=== PATIENT | female | born 1965 | race Caucasian/White ===

== ENCOUNTER 2020-10-01 21:35 | Emergency (ER) | payer OTHER, MEDICAID, SELFPAY ==
[2020-10-01 21:39] VITALS: BP 178/71; PULSE 86; RESP 20; TEMP 38.3; O2SAT 95; BMI 96.0
[2020-10-01 21:59] VITALS: BP 161/63; PULSE 86; O2SAT 91
[2020-10-01 22:30] VITALS: BP 164/73; PULSE 95; O2SAT 92
[2020-10-01 22:53] VITALS: TEMP 38.4
[2020-10-01 23:00] VITALS: BP 163/76; PULSE 96; O2SAT 92
--- NOTE | 2020-10-01 23:00 | HMH.EDGENADL ---
ED Disposition Clinical Impression: Polyarthritis Sepsis Qualifiers: Sepsis type: sepsis due to unspecified organism Sepsis acute organ dysfunction status: without acute organ dysfunction Qualified Code(s): A41.9 - Sepsis, unspecified organism Pneumonia Qualifiers: Pneumonia type: due to unspecified organism Laterality: unspecified laterality Lung location: unspecified part of lung Qualified Code(s): J18.9 - Pneumonia, unspecified organism Anemia Qualifiers: Anemia type: unspecified type Qualified Code(s): D64.9 - Anemia, unspecified UTI (urinary tract infection) Qualifiers: Urinary tract infection type: site unspecified Hematuria presence: without hematuria Qualified Code(s): N39.0 - Urinary tract infection, site not specified Disposition: Xfer Short-Term Hosp Condition on Discharge: Serious - Critical Care Critical Care Time: No Attestation: On 10/01/20, the high probability of a clinically significant, sudden or life threatening deterioration of the following system(s) required my full and direct attention, intervention and personal management. The time I documented below is in addition to time spent performing reported procedures but includes the following listed in this critical care notation. Medical Decision Making - Magdi Inquiry Pt receiving controlled substance: No Vital Signs: 10/01/20 21:39 10/01/20 21:59 10/01/20 22:30 Temperature 100.9 F H Temperature Source Oral Pulse Rate 86 95 H Pulse Rate [Right Brachial] 86 Respiratory Rate 20 Blood Pressure 161/63 H 164/73 H Blood Pressure [Left Arm] 178/71 H Blood Pressure Mean Blood Pressure Mean [Left Arm] 106 Blood Pressure Source Automatic Cuff Automatic Cuff Blood Pressure Source [Left Arm] Automatic Cuff Blood Pressure Position 02 Sat by Pulse Oximetry 95 91 L 92 L Oxygen Delivery Method Room Air Room Air Room Air 10/01/20 22:53 10/01/20 23:00 10/01/20 23:30 Temperature 101.2 F H Temperature Source Oral Pulse Rate 96 H 100 H Pulse Rate [Right Brachial] Respiratory Rate Blood Pressure 163/76 H 160/61 H Blood Pressure [Left Arm] Blood Pressure Mean Blood Pressure Mean [Left Arm] Blood Pressure Source Automatic Cuff Blood Pressure Source [Left Arm] Blood Pressure Position 02 Sat by Pulse Oximetry 92 L 91 L Oxygen Delivery Method Room Air 10/02/20 00:37 10/02/20 01:00 10/02/20 01:15 Temperature 100.3 F H Temperature Source Oral Pulse Rate 98 H 98 H Pulse Rate [Right Brachial] Respiratory Rate Blood Pressure 170/79 H Blood Pressure [Left Arm] Blood Pressure Mean 109 Blood Pressure Mean [Left Arm] Blood Pressure Source Blood Pressure Source [Left Arm] Blood Pressure Position 02 Sat by Pulse Oximetry 93 L 90 L Oxygen Delivery Method 10/02/20 01:30 10/02/20 02:00 10/02/20 02:14 Temperature 99.8 F H Temperature Source Oral Pulse Rate 102 H 97 H Pulse Rate [Right Brachial] Respiratory Rate 18 Blood Pressure 166/75 H 154/71 H Blood Pressure [Left Arm] Blood Pressure Mean 107 Blood Pressure Mean [Left Arm] Blood Pressure Source Blood Pressure Source [Left Arm] Blood Pressure Position Supine 02 Sat by Pulse Oximetry 93 L 93 L Oxygen Delivery Method Room Air 10/02/20 02:30 10/02/20 02:57 10/02/20 03:00 Temperature 98.7 F Temperature Source Oral Pulse Rate 90 92 H Pulse Rate [Right Brachial] 88 Respiratory Rate 17 Blood Pressure 152/73 H 143/72 H Blood Pressure [Left Arm] 182/86 H Blood Pressure Mean 99 Blood Pressure Mean [Left Arm] 118 Blood Pressure Source Blood Pressure Source [Left Arm] Automatic Cuff Blood Pressure Position Supine Supine 02 Sat by Pulse Oximetry 94 L 93 L 95 Oxygen Delivery Method Room Air Room Air 10/02/20 03:05 Temperature 99.8 F H Temperature Source Oral Pulse Rate 90 Pulse Rate [Right Brachial] Respiratory Rate 18 Blood Pressure 153/73 H
[2020-10-01 23:02] LABS: Basophils % 0.3 % (0.1-2.0); Eosinophils # 0.1 K/mm3 (0.0-0.4); Eosinophils % 0.4 % (0.1-12.0); Lymphocytes # 1.1 K/mm3 (0.7-4.5); Lymphocytes % 6.8 % (10-50); Mean Corpuscular HGB Conc 29.5 g/dL (31.8-35.4); Mean Corpuscular Hemoglobin 24.1 pg (27.0-31.2); Mean Corpuscular Volume 81.6 fl (81-99); Mean Platelet Volume 7.6 fl (7.4-10.4); Monocytes # 0.7 K/mm3 (0.1-1.0); Monocytes % 4.4 % (1.7-9.3); Neutrophils # 14.3 K/mm3 (1.8-7.8); Neutrophils % 88.1 % (37.0-80.0); Platelet Count 422 K/mm3 (142-424); Red Blood Count 3.31 M/mm3 (4.20-5.40); Red Cell Distribution Width 14.1 % (11.5-17.5); White Blood Count 16.3 K/mm3 (4.8-10.8)
[2020-10-01 23:07] LABS: Alanine Aminotransferase 35 U/L (12-78); Albumin Level 3.8 g/dl (3.5-5.0); Albumin/Globulin Ratio 1.1 (1.1-1.8); Alkaline Phosphatase 186 U/L (38-126); Anion Gap 13.3 mEq/L (5-15); Aspartate Amino Transferase 43 U/L (14-36); Bilirubin,Total 0.8 mg/dl (0.2-1.3); Blood Urea Nitrogen 13 mg/dl (7-17); Calcium 8.7 mg/dl (8.4-10.2); Carbon Dioxide 26 mmol/L (22.0-30.0); Chloride 105 mmol/L (98-107); Creatinine Clearance Estimated 66 mL/min (50-200); Estimated Glomerular Filt Rate 65 ml/min (>60); GFR (African American) 79 ML/MIN (>60); Globulin 3.6 g/dL (1.3-3.2); Glucose 112 mg/dl (74-100); Potassium 3.3 mmoL/L (3.5-5.1); Sodium 141 mmol/L (136-145); Total Protein,Serum 7.4 g/dl (6.3-8.2); Uric Acid 5.8 mg/dl (2.5-6.2)
[2020-10-01 23:10] LABS: Hematocrit 27.1 % (37.0-47.0)
--- NOTE | 2020-10-01 23:10 | XR_ITS ---
PROCEDURE INFORMATION: Exam: XR Chest Exam date and time: 10/01/2020 11:10 PM Age: 55 years old Clinical indication: Fever TECHNIQUE: Imaging protocol: XR of the chest. Views: 1 view. COMPARISON: No relevant prior studies available. FINDINGS: Airway: Patent Lungs: Bilateral perihilar haziness and streaky-like opacities. Mild segmental bronchial wall thickening. Linear airspace consolidations in the right lung base. Subtle ground-glass opacities in the left lung base. Pleural spaces: Unremarkable. No pleural effusion. No pneumothorax. Heart/Mediastinum: Cardiomediastinal silhouette is magnified due to technique. The heart is mildly enlarged. Bones/joints: No acute skeletal abnormality or aggressive osseous lesion. IMPRESSION: Bilateral perihilar and basal acute airspace disease, concerning for infectious pneumonia in this patient presenting with fever.
--- NOTE | 2020-10-01 23:10 | PC.NURSE ---
Dr Ellis made aware of hemoglobin of 8.0, no new orders
[2020-10-01 23:12] LABS: MANUAL DIFFERENTIAL MANUAL DIFFERENTIAL (MANUAL DIFF)
[2020-10-01 23:22] LABS: Eosinophils % 1 % (0-3); Hypochromasia 3+; Lymphocytes % 3 % (10-50); Neutrophils % 92 % (42-76); Platelet Estimate Normal; Total Cells Counted 100
[2020-10-01 23:23] LABS: Microcytosis 1+; Rouleaux 3+
[2020-10-01 23:30] VITALS: BP 160/61; PULSE 100; O2SAT 91
[2020-10-01 23:37] LABS: Erythrocyte Sedimentation Rate > 140 mm/hr (0-30)
[2020-10-01 23:46] LABS: Appearance,Urine/Cath SL CLOUDY (Clear); Blood, Urine/Cath Negative (Negative); Color,Urine/Cath YELLOW (Yellow); Glucose,Urine/Cath (UA) Negative (Negative); Ketones,Urine/Cath 1+ (Negative); Leukocyte Esterase,Cath Negative (Negative); Microscopic,Cath URINE MICROSCOPIC (MICROSCOPIC); Nitrate,Cath POSITIVE (Negative); PH,Urine/Cath 5.5 (5.0-8.5); Protein,Urine/Cath 2+ (Negative); Specific Gravity, Urine/Cath >= 1.030 (1.005-1.030); Urobilinogen,Cath 0.2 EU/dl (0.2)
[2020-10-01 23:48] LABS: Coronavirus 19, PCR Not Detected (NotDetected); Influenza A, PCR Not Detected (NotDetected); Influenza B, PCR Not Detected (NotDetected)
[2020-10-01 23:49] LABS: Bilirubin,Cath 1+ (Negative)
[2020-10-01 23:50] LABS: Amorphous Sediment,Ur/Cath Trace /lpf; Bacteria,Urine/Cath 4+ /lpf
[2020-10-01 23:53] LABS: Lactic Acid 0.8 mmol/L (0.7-2.1)
[2020-10-02] VITALS (10 sets, daily range): BP systolic 143–182; BP diastolic 71–86; PULSE 88–102; RESP 17–18; TEMP 37.1–37.9; O2SAT 90–95; BMI 43.6
[2020-10-02 01:34] LABS: Lactate Dehydrogenase 258 U/L (313-618)
--- NOTE | 2020-10-02 02:09 | PC.NURSE ---
SPOKE TO CALL [facility] AT [facility] NO BEDS AT [facility] OR [facility]
--- NOTE | 2020-10-02 02:13 | PC.NURSE ---
SPOKE WITH BED PLACEMENT AT [facility] AT THIS TIME, STATES PT WILL BE PUT ON WAITING LIST AND HOSPITALIST WILL CALL BACK
--- NOTE | 2020-10-02 03:21 | PC.NURSE ---
patient up to floor via stretcher.
--- NOTE | 2020-10-02 04:59 | PC.NURSE ---
called and informed [facility] RN that they have a bed in the ED for patient. Patient has family that works at and even though they reported they were on divert when Dr. Ross spoke with them earlier they are able to take patient at this time. Dr. Ross notified and stated he would change disposition to transfer instead of admit obs.
--- NOTE | 2020-10-02 05:08 | PC.NURSE ---
Spoke with Dr. Nicholson, he is changing disposition to transfer to short term hospital. Spoke with Bev in admissions and she stated she could undo the admission and leave patient as an ED patient.
--- NOTE | 2020-10-02 05:39 | PC.NURSE ---
Report called to Sheri at [facility].
[2020-10-02 05:43] LABS: Basophils % 0.3 % (0.1-2.0); Eosinophils # 0.1 K/mm3 (0.0-0.4); Eosinophils % 0.4 % (0.1-12.0); Lymphocytes # 2.4 K/mm3 (0.7-4.5); Lymphocytes % 15.8 % (10-50); Mean Corpuscular HGB Conc 28.8 g/dL (31.8-35.4); Mean Corpuscular Hemoglobin 23.7 pg (27.0-31.2); Mean Corpuscular Volume 82.2 fl (81-99); Mean Platelet Volume 7.3 fl (7.4-10.4); Monocytes # 0.6 K/mm3 (0.1-1.0); Monocytes % 4.1 % (1.7-9.3); Neutrophils # 12.2 K/mm3 (1.8-7.8); Neutrophils % 79.4 % (37.0-80.0); Platelet Count 410 K/mm3 (142-424); Red Blood Count 3.17 M/mm3 (4.20-5.40); Red Cell Distribution Width 14.2 % (11.5-17.5); White Blood Count 15.3 K/mm3 (4.8-10.8)
[2020-10-02 05:45] LABS: Hematocrit 26.1 % (37.0-47.0); Hemoglobin 7.5 g/dL (12.2-16.2)
--- NOTE | 2020-10-02 05:46 | PC.NURSE ---
Critical lab value reported to MD Ross Hgb 7.5. Pt being transferred to . Transfer signed by pt and on chart. Awaiting for transfer per [facility].
[2020-10-04 05:38] LABS: Peripheral Smear Review Scanned Result
== END 2020-10-02 03:09 | disposition short-term general hospital (02) ==
LOC: ER 10-02 02:01 → 2ND 10-02 02:59
PROVIDERS: Emergency Provider Emergency Medicine; PCP Family Medicine; Visit Provider Internal Medicine Adolescent Medicine
DX: M06.4 Inflammatory polyarthropathy (principal); A41.9 Sepsis, unspecified organism; J18.9 Pneumonia, unspecified organism; D64.9 Anemia, unspecified; N39.0 Urinary tract infection, site not specified; K21.9 Gastro-esophageal reflux disease without esophagitis; E78.5 Hyperlipidemia, unspecified; I10 Essential (primary) hypertension; Z79.899 Other long term (current) drug therapy; Z88.0 Allergy status to penicillin; Z88.2 Allergy status to sulfonamides; Z88.5 Allergy status to narcotic agent; Z88.7 Allergy status to serum and vaccine
CPT/HCPCS: 36415; 71045; 80053; 81001; 83605; 83615; 84550; 85007; 85025; 85651; 86140; 87040; 87086; 87088; 87186; 96365; 96366; 96375; 99284; J3370; U0003

== ENCOUNTER 2021-02-15 14:00 | Outpatient (RCR) | payer OTHER, MEDICAID, SELFPAY | END 2021-02-15 14:05 | disposition home or self-care (01) | LOC: PT 14:00 | PROVIDERS: PCP Family Medicine | DX: M25.562 Pain in left knee (principal); M25.462 Effusion, left knee | CPT/HCPCS: 97010; 97014; 97110; 97112; 97113; 97116; 97140; 97163; 97164; G0283 ==

== ENCOUNTER 2021-05-14 10:00 | Outpatient (RCR) | payer MEDICAID, OTHER, SELFPAY | END 2021-05-14 10:05 | disposition home or self-care (01) | LOC: OT 10:00 | PROVIDERS: PCP Family Medicine | DX: M79.601 Pain in right arm (principal); M79.602 Pain in left arm; M79.642 Pain in left hand; M79.641 Pain in right hand | CPT/HCPCS: 97014; 97110; 97140; 97164; 97166; 97530; G0283 ==

== ENCOUNTER → 2021-05-28 11:09 | Outpatient (CLI) | payer MEDICAID, SELFPAY | DX: Z01.812 Encounter for preprocedural laboratory examination (principal); Z11.52 Encounter for screening for COVID-19 | CPT/HCPCS: C9803; U0003; U0005 ==

== ENCOUNTER 2021-06-06 11:00 | Outpatient (RCR) | payer MEDICAID, SELFPAY | END 2021-06-06 11:05 | disposition home or self-care (01) | LOC: PT 11:00 | PROVIDERS: Visit Provider Student in an Organized Health Care Education/Training Program | DX: M06.4 Inflammatory polyarthropathy (principal); M10.9 Gout, unspecified | CPT/HCPCS: 97010; 97014; 97110; 97112; 97163; 97164; G0283 ==

== ENCOUNTER → 2021-08-23 10:33 | Outpatient (CLI) | payer MEDICAID, SELFPAY | PROVIDERS: PCP Family Medicine; Visit Provider Internal Medicine Pulmonary Disease | DX: R06.02 Shortness of breath (principal) | CPT/HCPCS: 94762 ==

== ENCOUNTER → 2021-09-14 09:34 | Outpatient (CLI) | payer MEDICAID, SELFPAY ==
--- NOTE | 2021-09-14 10:53 | PC.NURSE ---
PFT and 6 minute walk completed on Pt. Pt tolerated well. Albuterol 0.083% given via HHN, per protocol, Pt tolerated tx well.
== END ==
PROVIDERS: PCP Family Medicine; Visit Provider Internal Medicine Pulmonary Disease
DX: R06.09 Other forms of dyspnea (principal)
CPT/HCPCS: 94060; 94618; 94726; 94729

== ENCOUNTER → 2021-10-26 20:06 | Outpatient (CLI) | payer MEDICAID, SELFPAY | PROVIDERS: PCP Family Medicine; Visit Provider Internal Medicine Pulmonary Disease | DX: G47.33 Obstructive sleep apnea (adult) (pediatric) (principal); G47.36 Sleep related hypoventilation in conditions classified elsewhere; G47.61 Periodic limb movement disorder; R06.83 Snoring | CPT/HCPCS: 95810 ==

== ENCOUNTER → 2021-12-21 14:49 | Outpatient (CLI) | payer MEDICAID, SELFPAY ==
[2021-12-21 14:12] LABS: Adenovirus,PCR Not Detected (NotDetected); Bordetella Pertussis Not Detected (NotDetected); Chlamydophila Pneumoniae, PCR Not Detected (NotDetected); Coronavirus 19, PCR Not Detected (NotDetected); Coronavirus 229E Not Detected (NotDetected); Coronavirus NL63 Not Detected (NotDetected); Coronavirus OC43 Not Detected (NotDetected); Coronovirus HKU1,PCR Not Detected (NotDetected); Human Metapneumovirus Not Detected (NotDetected); Influenza A, PCR Not Detected (NotDetected); Influenza AH1, 2009 Not Detected (NotDetected); Influenza AH1, PCR Not Detected (NotDetected); Influenza AH3,PCR Not Detected (NotDetected); Influenza B, PCR Not Detected (NotDetected); Mycoplasma Pneumoniae, PCR Not Detected (NotDetected); Parainfluenza 1, PCR Not Detected (NotDetected); Parainfluenza 2, PCR Not Detected (NotDetected); Parainfluenza 3, PCR Not Detected (NotDetected); Parainfluenza 4, PCR Not Detected (NotDetected); Respiratory Syncytial Virus Not Detected (NotDetected); Rhinovirus/Enterovirus Not Detected (NotDetected)
== END ==
PROVIDERS: PCP Family Medicine; Visit Provider Family Medicine
DX: Z20.822 Contact with and (suspected) exposure to COVID-19 (principal); R50.9 Fever, unspecified
CPT/HCPCS: 87581; 87632; 87798; C9803; U0003; U0005

== ENCOUNTER → 2022-01-21 07:54 | Outpatient (CLI) | payer MEDICAID, SELFPAY ==
--- NOTE | 2022-01-21 07:54 | MM_ITS ---
PROCEDURE INFORMATION: Exam: MG Bilateral Screening 3D Mammography Exam date and time: 01/21/2022 7:54 AM Age: 56 years old Clinical indication: Screening examination. No family history of breast cancer. TECHNIQUE: Imaging protocol: Bilateral Screening tomosynthesis and 2D mammography including computer-aided detection (CAD) when performed. COMPARISON: 1. MG DMDXUR DIG MAMM-DX UNILATERAL-RT 10/10/2010 1:46 PM 2. MG DMDXUAVR DIG MAMM-DX UNIL ADD VIEWS-RT 02/07/2010 1:47 PM 3. MG DMSB DIGITAL MAMM-SCREEN BILATERAL 01/17/2010 4:02 PM FINDINGS: MAMMOGRAPHY: Breast composition: The breasts are heterogeneously dense, which may obscure small masses. Mass: No suspicious mass. Architectural distortion: None. Calcifications: No suspicious calcifications. Asymmetric density: None. Skin thickening: None. Axillary adenopathy: None. IMPRESSION: No mammographic evidence of malignancy. Annual screening is recommended unless otherwise clinically indicated. ASSESSMENT: BI-RADS Category 1: Negative
== END ==
PROVIDERS: PCP Family Medicine; Visit Provider Family Medicine
DX: Z12.31 Encounter for screening mammogram for malignant neoplasm of breast (principal)
CPT/HCPCS: 77063; 77067

== ENCOUNTER → 2022-02-19 14:41 | Outpatient (CLI) | payer MEDICAID, SELFPAY ==
[2022-02-19 13:29] LABS: Basophils # 0.1 K/mm3 (0-0.2); Basophils % 1.8 % (0.1-2.0); Eosinophils # 0.3 K/mm3 (0.0-0.4); Eosinophils % 3.5 % (0.1-12.0); Hematocrit 39.2 % (37.0-47.0); Hemoglobin 12.2 g/dL (12.2-16.2); Lymphocytes # 2.9 K/mm3 (0.7-4.5); Lymphocytes % 38.3 % (10-50); Mean Corpuscular HGB Conc 31.1 g/dL (31.8-35.4); Mean Corpuscular Hemoglobin 29.1 pg (27.0-31.2); Mean Corpuscular Volume 93.4 fl (81-99); Mean Platelet Volume 9.5 fl (7.4-10.4); Monocytes # 0.2 K/mm3 (0.1-1.0); Monocytes % 2.6 % (1.7-9.3); Neutrophils # 4.1 K/mm3 (1.8-7.8); Neutrophils % 53.9 % (37.0-80.0); Platelet Count 333 K/mm3 (142-424); Red Blood Count 4.19 M/mm3 (4.20-5.40); Red Cell Distribution Width 14.7 % (11.5-17.5); White Blood Count 7.6 K/mm3 (4.8-10.8)
== END ==
PROVIDERS: PCP Family Medicine; Visit Provider Family Medicine
DX: Z87.39 Personal history of other diseases of the musculoskeletal system and connective tissue (principal)
CPT/HCPCS: 85025

== ENCOUNTER → 2022-02-26 15:11 | Outpatient (CLI) | payer MEDICAID, SELFPAY | PROVIDERS: PCP Family Medicine; Visit Provider Nurse Practitioner Family | DX: G47.33 Obstructive sleep apnea (adult) (pediatric) (principal); G47.34 Idiopathic sleep related nonobstructive alveolar hypoventilation; Z99.89 Dependence on other enabling machines and devices | CPT/HCPCS: 94762 ==

== ENCOUNTER → 2022-03-25 14:36 | Outpatient (CLI) | payer MEDICAID, SELFPAY | PROVIDERS: PCP Family Medicine; Visit Provider Nurse Practitioner Family | DX: G47.33 Obstructive sleep apnea (adult) (pediatric) (principal); G47.34 Idiopathic sleep related nonobstructive alveolar hypoventilation; Z99.89 Dependence on other enabling machines and devices | CPT/HCPCS: 94762 ==

== ENCOUNTER → 2022-03-28 14:49 | Outpatient (CLI) | payer MEDICAID, SELFPAY ==
--- NOTE | 2022-03-28 14:56 | CT_ITS ---
FINAL REPORT TECHNIQUE: Thin section axial images were obtained from skull base to vertex without contrast. Coronal reconstruction images were obtained from the axial data. Exam was performed using dose reduction technique. CLINICAL HISTORY: [place] palsy?, facial drooping, right eye pain & pain behind right ear, jaw and neck FINDINGS: There is no mass effect or midline shift. There is no hydrocephalus. There is no intracranial hemorrhage. The posterior fossa is without acute abnormality. The basilar cisterns are preserved. The soft tissues are without acute abnormality. No acute osseous abnormality is identified. IMPRESSION: No acute intracranial abnormality. Reviewed, Interpreted and Dictated by Hortencia Simon MD Transcribed by Kate Marshall Authenticated and [facility]
== END ==
PROVIDERS: PCP Family Medicine; Visit Provider Family Medicine
DX: R29.810 Facial weakness (principal)
CPT/HCPCS: 70450

== ENCOUNTER → 2022-05-03 13:46 | Outpatient (CLI) | payer MEDICAID, SELFPAY ==
[2022-05-08 16:13] LABS: IgG P18 Ab. Absent (.); IgG P23 Ab. Absent (.); IgG P28 Ab. Absent (.); IgG P30 Ab. Absent (.); IgG P39 Ab. Absent (.); IgG P41 Ab. Present (.); IgG P45 Ab. Absent (.); IgG P58 Ab. Present (.); IgG P66 Ab. Absent (.); IgG P93 Ab. Present (.); IgM P23 Ab. Absent (.); IgM P39 Ab. Absent (.); IgM P41 Ab. Absent (.); Lyme IgG WB Interp. Negative (.); Lyme IgM WB Interp. Negative (.)
== END ==
PROVIDERS: PCP Family Medicine; Visit Provider Nurse Practitioner Family
DX: G51.0 Bell's palsy (principal)
CPT/HCPCS: 36415; 86617

== ENCOUNTER → 2022-06-12 19:37 | Outpatient (CLI) | payer MEDICAID, SELFPAY | PROVIDERS: PCP Family Medicine; Visit Provider Nurse Practitioner Family | DX: G47.33 Obstructive sleep apnea (adult) (pediatric) (principal); G47.61 Periodic limb movement disorder | CPT/HCPCS: 95811 ==

== ENCOUNTER → 2022-06-14 13:56 | Outpatient (CLI) | payer MEDICAID, SELFPAY ==
[2022-06-14 15:46] LABS: Basophils # 0.1 K/mm3 (0-0.2); Basophils % 1.3 % (0.1-2.0); Eosinophils # 0.4 K/mm3 (0.0-0.4); Eosinophils % 4.8 % (0.1-12.0); Hematocrit 39.4 % (37.0-47.0); Hemoglobin 12.1 g/dL (12.2-16.2); Lymphocytes # 2.6 K/mm3 (0.7-4.5); Lymphocytes % 33.1 % (10-50); Mean Corpuscular HGB Conc 30.6 g/dL (31.8-35.4); Mean Corpuscular Hemoglobin 29.5 pg (27.0-31.2); Mean Corpuscular Volume 96.2 fl (81-99); Mean Platelet Volume 9.5 fl (7.4-10.4); Monocytes # 0.7 K/mm3 (0.1-1.0); Monocytes % 8.6 % (1.7-9.3); Neutrophils # 4.1 K/mm3 (1.8-7.8); Neutrophils % 52.1 % (37.0-80.0); Platelet Count 267 K/mm3 (142-424); Red Blood Count 4.09 M/mm3 (4.20-5.40); Red Cell Distribution Width 15.7 % (11.5-17.5); White Blood Count 7.8 K/mm3 (4.8-10.8)
[2022-06-14 15:58] LABS: Alanine Aminotransferase 37 U/L (12-78); Albumin Level 4.2 g/dl (3.5-5.0); Albumin/Globulin Ratio 1.6 (1.1-1.8); Alkaline Phosphatase 126 U/L (38-126); Aspartate Amino Transferase 63 U/L (14-36); Bilirubin,Total 0.5 mg/dl (0.2-1.3); Blood Urea Nitrogen 13 mg/dl (7-17); Calcium 8.9 mg/dl (8.4-10.2); Carbon Dioxide 22 mmol/L (22.0-30.0); Chloride 106 mmol/L (98-107); Chol/HDL Ratio 4.5 (1-3.5); Cholesterol 199 mg/dl (140-200); Estimated Glomerular Filt Rate 74 ml/min (>60); GFR (African American) 89 ML/MIN (>60); Globulin 2.6 g/dL (1.3-3.2); Glucose 98 mg/dl (74-100); HDL Cholesterol 44 mg/dl (40-60); Sodium 137 mmol/L (136-145); Total Protein,Serum 6.8 g/dl (6.3-8.2); Triglycerides 202 mg/dl (30-150); VLDL Cholesterol 40 mg/dL (0-40)
[2022-06-14 16:08] LABS: Direct LDL Cholesterol 123.13 mg/dL (100-129)
[2022-06-14 16:27] LABS: Thyroid Stimulating Hormone 3.38 uIU/mL (0.465-4.68)
== END ==
PROVIDERS: PCP Family Medicine; Visit Provider Family Medicine
DX: I10 Essential (primary) hypertension (principal)
CPT/HCPCS: 80053; 80061; 84443; 85025

== ENCOUNTER → 2022-06-17 11:00 | Outpatient (CLI) | payer MEDICAID, SELFPAY ==
[2022-06-17 12:38] LABS: Iron 106 ug/dL (37-170)
[2022-06-17 12:48] LABS: Total Iron Binding Capacity 275 ug/dL (265-497)
[2022-06-17 13:13] LABS: Ferritin 304 ng/ml (11.1-264)
[2022-06-17 13:30] LABS: Vitamin B12 629 pg/mL (239-931)
== END ==
PROVIDERS: PCP Family Medicine; Visit Provider Nurse Practitioner Family
DX: D64.9 Anemia, unspecified (principal); G47.61 Periodic limb movement disorder
CPT/HCPCS: 36415; 82607; 82728; 83540; 83550

== ENCOUNTER → 2022-07-24 23:15 | Outpatient (CLI) | payer MEDICAID, SELFPAY ==
[2022-07-24 19:18] LABS: Adenovirus,PCR Not Detected (NotDetected); Bordetella Pertussis Not Detected (NotDetected); Chlamydophila Pneumoniae, PCR Not Detected (NotDetected); Coronavirus 19, PCR Not Detected (NotDetected); Coronavirus 229E Not Detected (NotDetected); Coronavirus NL63 Not Detected (NotDetected); Coronavirus OC43 Not Detected (NotDetected); Coronovirus HKU1,PCR Not Detected (NotDetected); Human Metapneumovirus Not Detected (NotDetected); Influenza A, PCR Not Detected (NotDetected); Influenza AH1, 2009 Not Detected (NotDetected); Influenza AH1, PCR Not Detected (NotDetected); Influenza AH3,PCR Not Detected (NotDetected); Influenza B, PCR Not Detected (NotDetected); Mycoplasma Pneumoniae, PCR Not Detected (NotDetected); Parainfluenza 1, PCR Not Detected (NotDetected); Parainfluenza 2, PCR Not Detected (NotDetected); Parainfluenza 3, PCR Not Detected (NotDetected); Parainfluenza 4, PCR Not Detected (NotDetected); Respiratory Syncytial Virus Not Detected (NotDetected); Rhinovirus/Enterovirus Not Detected (NotDetected)
== END ==
PROVIDERS: PCP Nurse Practitioner Family; Visit Provider Nurse Practitioner Family
DX: J02.9 Acute pharyngitis, unspecified (principal)
CPT/HCPCS: 87581; 87632; 87635; 87798; C9803; U0003; U0005

== ENCOUNTER → 2022-09-09 14:54 | Outpatient (CLI) | payer MEDICAID, SELFPAY | PROVIDERS: PCP Family Medicine; Visit Provider Nurse Practitioner Family | DX: G47.33 Obstructive sleep apnea (adult) (pediatric) (principal) | CPT/HCPCS: 94762 ==

== ENCOUNTER → 2022-10-10 23:33 | Outpatient (CLI) | payer MEDICAID, SELFPAY ==
[2022-10-10 18:26] LABS: Adenovirus,PCR Not Detected (NotDetected); Coronavirus 229E Not Detected (NotDetected); Coronavirus NL63 Not Detected (NotDetected); Coronavirus OC43 Not Detected (NotDetected); Coronovirus HKU1,PCR Not Detected (NotDetected); Human Metapneumovirus Not Detected (NotDetected)
[2022-10-10 18:27] LABS: Bordetella Pertussis Not Detected (NotDetected); Chlamydophila Pneumoniae, PCR Not Detected (NotDetected); Influenza A, PCR Not Detected (NotDetected); Influenza AH1, 2009 Not Detected (NotDetected); Influenza AH1, PCR Not Detected (NotDetected); Influenza AH3,PCR Not Detected (NotDetected); Influenza B, PCR Not Detected (NotDetected); Mycoplasma Pneumoniae, PCR Not Detected (NotDetected); Parainfluenza 1, PCR Not Detected (NotDetected); Parainfluenza 2, PCR Not Detected (NotDetected); Parainfluenza 3, PCR Not Detected (NotDetected); Parainfluenza 4, PCR Not Detected (NotDetected); Respiratory Syncytial Virus Not Detected (NotDetected); Rhinovirus/Enterovirus Not Detected (NotDetected)
[2022-10-10 21:03] LABS: Coronavirus 19, PCR Detected (NotDetected)
== END ==
PROVIDERS: PCP Family Medicine; Visit Provider Family Medicine
DX: Z20.822 Contact with and (suspected) exposure to COVID-19 (principal); U07.1 COVID-19; J06.9 Acute upper respiratory infection, unspecified; R09.89 Other specified symptoms and signs involving the circulatory and respiratory systems
CPT/HCPCS: 87581; 87632; 87798

== ENCOUNTER → 2022-11-06 12:40 | Outpatient (CLI) | payer MEDICAID, SELFPAY ==
[2022-11-06 13:10] LABS: Basophils # 0.1 K/mm3 (0-0.2); Basophils % 1.2 % (0.1-2.0); Eosinophils # 0.3 K/mm3 (0.0-0.4); Eosinophils % 4.7 % (0.1-12.0); Hematocrit 36.9 % (37.0-47.0); Hemoglobin 11.6 g/dL (12.2-16.2); Lymphocytes % 32.8 % (10-50); Mean Corpuscular HGB Conc 31.6 g/dL (31.8-35.4); Mean Corpuscular Hemoglobin 29.7 pg (27.0-31.2); Mean Platelet Volume 8.5 fl (7.4-10.4); Monocytes # 0.2 K/mm3 (0.1-1.0); Neutrophils # 3.5 K/mm3 (1.8-7.8); Neutrophils % 57.4 % (37.0-80.0); Platelet Count 231 K/mm3 (142-424); Red Blood Count 3.92 M/mm3 (4.20-5.40); Red Cell Distribution Width 14.8 % (11.5-17.5); White Blood Count 6.1 K/mm3 (4.8-10.8)
[2022-11-10 17:30] LABS: D001-IgE D pteronyssinus <0.10 kU/L (Class 0); D002-IgE D farinae <0.10 kU/L (Class 0); E001-IgE Cat Dander <0.10 kU/L (Class 0); E005-IgE Dog Dander <0.10 kU/L (Class 0); E072-IgE Mouse Urine <0.10 kU/L (Class 0); G002-IgE Bermuda Grass <0.10 kU/L (Class 0); G006-IgE Timothy Grass <0.10 kU/L (Class 0); I006-IgE Cockroach, German <0.10 kU/L (Class 0); Immunoglobulin E, Total 24 IU/mL (6-495); M001-IgE Penicillium chrysogen <0.10 kU/L (Class 0); M002-IgE Cladosporium herbarum <0.10 kU/L (Class 0); M003-IgE Aspergillus fumigatus <0.10 kU/L (Class 0); M006-IgE Alternaria alternata <0.10 kU/L (Class 0); T001-IgE Maple/Box Elder <0.10 kU/L (Class 0); T003-IgE Common Silver Birch <0.10 kU/L (Class 0); T006-IgE Cedar, Mountain <0.10 kU/L (Class 0); T007-IgE Oak, White <0.10 kU/L (Class 0); T008-IgE Elm, American <0.10 kU/L (Class 0); T010-IgE Walnut <0.10 kU/L (Class 0); T011-IgE Maple Leaf Sycamore <0.10 kU/L (Class 0); T014-IgE Cottonwood <0.10 kU/L (Class 0); T015-IgE Ash, White <0.10 kU/L (Class 0); T022-IgE Pecan, Hickory <0.10 kU/L (Class 0); T070-IgE White Mulberry <0.10 kU/L (Class 0); W001-IgE Ragweed, Short <0.10 kU/L (Class 0); W011-IgE Thistle, Russian <0.10 kU/L (Class 0); W014-IgE Pigweed, Common <0.10 kU/L (Class 0); W018-IgE Sheep Sorrel <0.10 kU/L (Class 0)
== END ==
LOC: LAB 12:41
PROVIDERS: PCP Family Medicine; Visit Provider Internal Medicine Pulmonary Disease
DX: J45.909 Unspecified asthma, uncomplicated (principal); J30.9 Allergic rhinitis, unspecified
CPT/HCPCS: 36415; 82785; 85025; 86003

== ENCOUNTER → 2022-11-27 08:45 | Outpatient (CLI) | payer MEDICAID, SELFPAY ==
[2022-11-27 09:40] LABS: Basophils # 0.1 K/mm3 (0-0.2); Eosinophils # 0.3 K/mm3 (0.0-0.4); Hematocrit 41.4 % (37.0-47.0); Hemoglobin 12.6 g/dL (12.2-16.2); Lymphocytes # 2.5 K/mm3 (0.7-4.5); Lymphocytes % 29.2 % (10-50); Mean Corpuscular HGB Conc 30.4 g/dL (31.8-35.4); Mean Corpuscular Hemoglobin 28.7 pg (27.0-31.2); Mean Corpuscular Volume 94.5 fl (81-99); Mean Platelet Volume 9.1 fl (7.4-10.4); Monocytes # 0.4 K/mm3 (0.1-1.0); Monocytes % 4.1 % (1.7-9.3); Neutrophils # 5.3 K/mm3 (1.8-7.8); Neutrophils % 61.7 % (37.0-80.0); Platelet Count 241 K/mm3 (142-424); Red Blood Count 4.38 M/mm3 (4.20-5.40); Red Cell Distribution Width 15.1 % (11.5-17.5); White Blood Count 8.6 K/mm3 (4.8-10.8)
[2022-11-27 10:44] LABS: Alanine Aminotransferase 24 U/L (12-78); Albumin/Globulin Ratio 1.3 (1.1-1.8); Alkaline Phosphatase 135 U/L (38-126); Anion Gap 13.2 mEq/L (5-15); Aspartate Amino Transferase 45 U/L (14-36); Bilirubin,Total 0.5 mg/dl (0.2-1.3); Blood Urea Nitrogen 14 mg/dl (7-17); Calcium 9.1 mg/dl (8.4-10.2); Carbon Dioxide 25 mmol/L (22.0-30.0); Chloride 107 mmol/L (98-107); Cholesterol 196 mg/dl (140-200); Estimated Glomerular Filt Rate 65 ml/min (>60); GFR (African American) 78 ML/MIN (>60); Globulin 3.1 g/dL (1.3-3.2); Glucose 103 mg/dl (74-100); HDL Cholesterol 49 mg/dl (40-60); Potassium 4.2 mmoL/L (3.5-5.1); Sodium 141 mmol/L (136-145); Total Protein,Serum 7.1 g/dl (6.3-8.2); Triglycerides 136 mg/dl (30-150); VLDL Cholesterol 27 mg/dL (0-40)
[2022-11-27 10:55] LABS: Direct LDL Cholesterol 109.17 mg/dL (100-129)
[2022-11-27 11:15] LABS: Thyroid Stimulating Hormone 1.56 uIU/mL (0.465-4.68)
== END ==
PROVIDERS: PCP Family Medicine; Visit Provider Family Medicine
DX: I10 Essential (primary) hypertension (principal)
CPT/HCPCS: 36415; 80053; 80061; 84443; 85025

== ENCOUNTER → 2022-11-29 14:06 | Outpatient (CLI) | payer MEDICAID, SELFPAY | PROVIDERS: PCP Family Medicine; Visit Provider Nurse Practitioner Family | DX: G47.33 Obstructive sleep apnea (adult) (pediatric) (principal); Z99.89 Dependence on other enabling machines and devices; G47.34 Idiopathic sleep related nonobstructive alveolar hypoventilation | CPT/HCPCS: 94762 ==

== ENCOUNTER → 2023-01-03 08:26 | Outpatient (CLI) | payer MEDICAID, SELFPAY ==
[2023-01-03 09:07] LABS: Basophils # 0.1 K/mm3 (0-0.2); Eosinophils # 0.3 K/mm3 (0.0-0.4); Eosinophils % 3.7 % (0.1-12.0); Hematocrit 36.9 % (37.0-47.0); Hemoglobin 12.2 g/dL (12.2-16.2); Lymphocytes # 2.1 K/mm3 (0.7-4.5); Lymphocytes % 29.7 % (10-50); Mean Corpuscular Volume 93.9 fl (81-99); Mean Platelet Volume 8.8 fl (7.4-10.4); Monocytes # 0.6 K/mm3 (0.1-1.0); Monocytes % 8.4 % (1.7-9.3); Neutrophils # 4.1 K/mm3 (1.8-7.8); Neutrophils % 57.2 % (37.0-80.0); Platelet Count 194 K/mm3 (142-424); Red Blood Count 3.93 M/mm3 (4.20-5.40); Red Cell Distribution Width 14.6 % (11.5-17.5); White Blood Count 7.1 K/mm3 (4.8-10.8)
[2023-01-03 12:16] LABS: 25-OH Vitamin D, Total 24.1 ng/mL (30-100)
[2023-01-04 14:17] LABS: Deamidated Gliadin Abs, IgA 6 units (0-19); Deamidated Gliadin Abs, IgG 1 units (0-19); Tissue Transglutaminase IgA Ab <2 U/mL (0-3); Tissue Transglutaminase IgG Ab 2 U/mL (0-5)
[2023-01-06 16:56] LABS: Endomysial IgA Antibody Negative (Negative)
[2023-01-08 11:04] LABS: Reticulin IgA Antibody Negative titer (Neg:<1:2.5)
[2023-01-08 19:27] LABS: F004-IgE Wheat <0.10 kU/L (Class 0); F024-IgE Shrimp <0.10 kU/L (Class 0); F338-IgE Scallop <0.10 kU/L (Class 0); I001-IgE Honey Bee <0.10 kU/L (Class 0); I002-IgE Hornet, White Face <0.10 kU/L (Class 0); Immunoglobulin E, Total 25 IU/mL (6-495)
[2023-01-09 18:26] LABS: F026-IgE Pork <0.10 kU/L (Class 0); I005-IgE Hornet Yellow <0.10 kU/L (Class 0)
== END ==
LOC: LAB 08:27
PROVIDERS: PCP Family Medicine; Visit Provider Allergy & Immunology
DX: E55.9 Vitamin D deficiency, unspecified (principal); Z91.018 Allergy to other foods; L30.9 Dermatitis, unspecified; J45.50 Severe persistent asthma, uncomplicated; Z91.038 Other insect allergy status
CPT/HCPCS: 36415; 82306; 82785; 83516; 83520; 85025; 86003; 86255; 86256

== ENCOUNTER → 2023-01-28 10:45 | Outpatient (CLI) | payer MEDICAID, SELFPAY ==
--- NOTE | 2023-01-28 10:45 | MM_ITS ---
PROCEDURE INFORMATION: Exam: MG Bilateral Screening 3D Mammography Exam date and time: 01/28/2023 10:52 AM Age: 57 years old Clinical indication: Screening examination TECHNIQUE: Imaging protocol: Bilateral Screening tomosynthesis and 2D mammography including computer-aided detection (CAD) when performed. COMPARISON: 1. MG MM DIG SCREENING MAMM BI W/CAD 01/21/2022 7:54 AM 2. MG DMDXUR DIG MAMM-DX UNILATERAL-RT 10/10/2010 1:46 PM FINDINGS: MAMMOGRAPHY: Breast composition: There are scattered areas of fibroglandular density. Mass: None. Architectural distortion: None. Calcifications: No suspicious calcifications. Asymmetric density: None. Skin thickening: None. Axillary adenopathy: None. IMPRESSION: No mammographic evidence of malignancy. Annual screening is recommended unless otherwise clinically indicated. ASSESSMENT: BI-RADS Category 1: Negative
== END ==
PROVIDERS: PCP Family Medicine; Visit Provider Family Medicine
DX: Z12.31 Encounter for screening mammogram for malignant neoplasm of breast (principal)
CPT/HCPCS: 77063; 77067

== ENCOUNTER 2023-03-11 09:49 | Outpatient (CLI) | payer MEDICARE, MEDICAID, SELFPAY ==
[2023-03-11] MEDS: ALBUTEROL 0.083% 2.5 MG/3 ML NEB IH (10:54)
--- NOTE | 2023-03-11 10:54 | PC.NURSE ---
Pt completed PFT and 6 Minute Walk test without incident. Albuterol 0.083% given via HHN, per protocol, Pt tolerated tx well.
== END 2023-03-11 23:59 ==
LOC: RT 09:50
PROVIDERS: PCP Family Medicine; Visit Provider Internal Medicine Pulmonary Disease
DX: R06.09 Other forms of dyspnea (principal)
CPT/HCPCS: 94060; 94618; 94726; 94729

== ENCOUNTER 2023-04-03 22:35 | Outpatient (CLI) | payer MEDICARE, MEDICAID, SELFPAY ==
[2023-04-03 19:19] LABS: Coronavirus 19, PCR Not Detected (NotDetected); Influenza A, PCR Not Detected (NotDetected); Influenza B, PCR Not Detected (NotDetected)
== END 2023-04-03 23:59 ==
LOC: LAB.DROPOF 22:37
PROVIDERS: PCP Nurse Practitioner; Visit Provider Nurse Practitioner
DX: J06.9 Acute upper respiratory infection, unspecified (principal); R11.0 Nausea; R51.9 Headache, unspecified; R50.9 Fever, unspecified; R09.81 Nasal congestion
CPT/HCPCS: 87636

== ENCOUNTER 2023-07-14 13:58 | Outpatient (CLI) | payer MEDICARE, SELFPAY ==
[2023-07-14 21:50] LABS: Chloride 109 mmol/L (98-107)
[2023-07-14 21:51] LABS: Potassium 4.7 mmoL/L (3.5-5.1); Sodium 141 mmol/L (136-145)
[2023-07-14 21:53] LABS: Alanine Aminotransferase 28 U/L (12-78); Albumin Level 3.9 g/dl (3.5-5.0); Albumin/Globulin Ratio 1.3 (1.1-1.8); Alkaline Phosphatase 148 U/L (38-126); Anion Gap 12.7 mEq/L (5-15); Aspartate Amino Transferase 48 U/L (14-36); Bilirubin,Total 0.5 mg/dl (0.2-1.3); Blood Urea Nitrogen 15 mg/dl (7-17); Carbon Dioxide 24 mmol/L (22.0-30.0); Cholesterol 169 mg/dl (140-200); Estimated Glomerular Filt Rate 74 ml/min (>60); GFR (African American) 89 ML/MIN (>60); Globulin 2.9 g/dL (1.3-3.2); Total Protein,Serum 6.8 g/dl (6.3-8.2); Triglycerides 187 mg/dl (30-150); VLDL Cholesterol 37 mg/dL (0-40)
[2023-07-14 21:54] LABS: Calcium 9.7 mg/dl (8.4-10.2); Chol/HDL Ratio 2.8 (1-3.5); Glucose 117 mg/dl (74-100); HDL Cholesterol 61 mg/dl (40-60)
[2023-07-14 22:05] LABS: Direct LDL Cholesterol 78.97 mg/dL (100-129)
== END 2023-07-14 23:59 | disposition home or self-care (01) ==
LOC: LAB.DROPOF 07-15 13:59
PROVIDERS: PCP Family Medicine; Visit Provider Family Medicine
DX: E07.9 Disorder of thyroid, unspecified (principal); E66.01 Morbid (severe) obesity due to excess calories; E78.5 Hyperlipidemia, unspecified; Z68.42 Body mass index [BMI] 45.0-49.9, adult
CPT/HCPCS: 80053; 80061; 84443

== ENCOUNTER 2023-10-13 10:20 | Outpatient (CLI) | payer MEDICARE, SELFPAY ==
[2023-10-13 18:33] LABS: Basophils # 0.1 K/mm3 (0-0.2); Eosinophils # 0.3 K/mm3 (0.0-0.4); Hematocrit 39.1 % (37.0-47.0); Hemoglobin 12.1 g/dL (12.2-16.2); Lymphocytes # 2.4 K/mm3 (0.7-4.5); Lymphocytes % 24.9 % (10-50); Mean Corpuscular Hemoglobin 31.1 pg (27.0-31.2); Mean Corpuscular Volume 100.3 fl (81-99); Mean Platelet Volume 10.5 fl (7.4-10.4); Monocytes # 0.3 K/mm3 (0.1-1.0); Monocytes % 2.9 % (1.7-9.3); Neutrophils # 6.5 K/mm3 (1.8-7.8); Neutrophils % 68.1 % (37.0-80.0); Platelet Count 182 K/mm3 (142-424); Red Cell Distribution Width 15.4 % (11.5-17.5); White Blood Count 9.5 K/mm3 (4.8-10.8)
[2023-10-13 18:46] LABS: Alanine Aminotransferase 32 U/L (12-78); Albumin Level 3.5 g/dl (3.5-5.0); Albumin/Globulin Ratio 1.1 (1.1-1.8); Alkaline Phosphatase 216 U/L (38-126); Anion Gap 12.2 mEq/L (5-15); Aspartate Amino Transferase 69 U/L (14-36); Bilirubin,Total 0.7 mg/dl (0.2-1.3); Blood Urea Nitrogen 17 mg/dl (7-17); Calcium 8.8 mg/dl (8.4-10.2); Carbon Dioxide 22 mmol/L (22.0-30.0); Chloride 109 mmol/L (98-107); Chol/HDL Ratio 3.1 (1-3.5); Cholesterol 168 mg/dl (140-200); Estimated Glomerular Filt Rate 86 ml/min (>60); GFR (African American) 104 ML/MIN (>60); Globulin 3.1 g/dL (1.3-3.2); Glucose 243 mg/dl (74-100); HDL Cholesterol 54 mg/dl (40-60); Potassium 4.2 mmoL/L (3.5-5.1); Sodium 139 mmol/L (136-145); Total Protein,Serum 6.6 g/dl (6.3-8.2); Triglycerides 218 mg/dl (30-150); VLDL Cholesterol 44 mg/dL (0-40)
[2023-10-13 18:57] LABS: Direct LDL Cholesterol 77.11 mg/dL (100-129)
[2023-10-13 19:13] LABS: Thyroid Stimulating Hormone 2.26 uIU/mL (0.465-4.68)
[2023-10-13 19:38] LABS: Hemoglobin A1C 6.2 % (4.0-6.0)
== END 2023-10-13 23:59 | disposition home or self-care (01) ==
LOC: LAB.DROPOF 10-14 10:20
PROVIDERS: PCP Family Medicine; Visit Provider Family Medicine
DX: F32.A Depression, unspecified (principal); E11.9 Type 2 diabetes mellitus without complications; E78.5 Hyperlipidemia, unspecified; E07.9 Disorder of thyroid, unspecified
CPT/HCPCS: 80050; 80053; 80061; 83036; 84443; 85025

== ENCOUNTER 2023-10-16 16:40 | Outpatient (CLI) | payer MEDICARE, SELFPAY ==
[2023-10-22 06:15] LABS: Calprotectin, Fecal 123 ug/g (0-120)
== END 2023-10-16 23:59 | disposition home or self-care (01) ==
LOC: LAB.DROPOF 16:42
PROVIDERS: Nurse Practitioner; PCP Family Medicine
DX: R19.5 Other fecal abnormalities (principal)
CPT/HCPCS: 83993

== ENCOUNTER 2023-11-07 11:47 | Outpatient (CLI) | payer OTHER, SELFPAY ==
[2023-11-07 13:58] LABS: Ferritin 271 ng/ml (11.1-264)
== END 2023-11-07 23:59 | disposition home or self-care (01) ==
LOC: LAB 11:48
PROVIDERS: PCP Family Medicine; Visit Provider Specialist
DX: G25.81 Restless legs syndrome (principal); Z79.899 Other long term (current) drug therapy
CPT/HCPCS: 36415; 82728

== ENCOUNTER 2023-11-17 11:50 | Outpatient (CLI) | payer OTHER, SELFPAY ==
[2023-11-17 18:47] LABS: Coronavirus 19, PCR Not Detected (NotDetected); Influenza A, PCR Not Detected (NotDetected); Influenza B, PCR Not Detected (NotDetected)
== END 2023-11-17 23:59 | disposition home or self-care (01) ==
LOC: LAB.DROPOF 11-18 11:50
PROVIDERS: PCP Nurse Practitioner; Visit Provider Nurse Practitioner
DX: J06.9 Acute upper respiratory infection, unspecified (principal)
CPT/HCPCS: 87636

== ENCOUNTER 2024-02-02 13:40 | Outpatient (CLI) | payer MEDICARE, SELFPAY ==
--- NOTE | 2024-02-02 13:44 | MM_ITS ---
PROCEDURE INFORMATION: Exam: MG Bilateral Screening 3D Mammography Exam date and time: 02/02/2024 1:50 PM Age: 58 years old Clinical indication: Screening examination TECHNIQUE: Imaging protocol: Bilateral Screening tomosynthesis and 2D mammography including computer-aided detection (CAD) when performed. COMPARISON: 1. MG MM DIG SCREENING MAMM BI W/CAD 01/28/2023 10:52 AM 2. MG MM DIG SCREENING MAMM BI W/CAD 01/21/2022 7:54 AM FINDINGS: MAMMOGRAPHY: Breast composition: There are scattered areas of fibroglandular density. Mass: None. Architectural distortion: None. Calcifications: No suspicious calcifications. Asymmetric density: None. Skin thickening: None. Axillary adenopathy: None. IMPRESSION: No mammographic evidence of malignancy. Annual screening is recommended unless otherwise clinically indicated. ASSESSMENT: BI-RADS Category 1: Negative.
== END 2024-02-02 23:59 | disposition home or self-care (01) ==
LOC: RAD 13:41
PROVIDERS: PCP Family Medicine; Visit Provider Nurse Practitioner
DX: Z12.31 Encounter for screening mammogram for malignant neoplasm of breast (principal)
CPT/HCPCS: 77063; 77067

== ENCOUNTER 2024-02-12 16:16 | Outpatient (CLI) | payer MEDICARE, SELFPAY ==
[2024-02-12 18:04] LABS: Coronavirus 19, PCR Not Detected (NotDetected); Influenza A, PCR Not Detected (NotDetected); Influenza B, PCR Not Detected (NotDetected)
== END 2024-02-12 23:59 | disposition home or self-care (01) ==
LOC: LAB.DROPOF 02-13 13:38
PROVIDERS: PCP Nurse Practitioner; Visit Provider Nurse Practitioner
DX: J06.9 Acute upper respiratory infection, unspecified (principal)
CPT/HCPCS: 87636

== ENCOUNTER 2024-02-27 19:26 | Emergency (ER) | payer MEDICARE, SELFPAY ==
[2024-02-27 19:28] VITALS: BP 161/82; PULSE 74; RESP 16; TEMP 37.1; O2SAT 98; BMI 43.8
--- NOTE | 2024-02-27 19:31 | ED_ITS ---
Discharge Plan Disposition Patient Disposition: Home, Self-Care Prescriptions Prescriptions: New azithromycin 500 mg tablet See Rx Instructions .ROUTE .COMPLEX Qty: 9 0RF Rx Instructions: For 250 mg dose pack: take 500 mg today (day 1), then 250 mg for 4 days (days 2-5) No Action azelastine 137 mcg (0.1 %) spray,non-aerosol 2 spray intranasal HS 90 Days Qty: 30 2RF Rx Instructions: administer into each nostril ferrous sulfate 325 mg (65 mg iron) tablet,delayed release (DR/EC) See Rx Instructions .ROUTE .COMPLEX Qty: 90 2RF Dose Instruction: TAKE 1 TABLET BY MOUTH ONCE DAILY Rx Instructions: TAKE 1 TABLET BY MOUTH ONCE DAILY fluticasone furoate-vilanterol [Breo Ellipta] 200-25 mcg/dose blister with device 1 inh inhalation DAILY 90 Days Qty: 90 2RF folic acid 1 mg tablet 1 mg PO DAILY Qty: 90 3RF meclizine 25 mg tablet 25 mg PO TID PRN (Reason: dizziness) Qty: 30 1RF metoprolol tartrate 50 mg tablet 50 mg PO DAILY Qty: 180 3RF montelukast 10 mg tablet See Rx Instructions .ROUTE .COMPLEX Qty: 90 2RF Dose Instruction: TAKE 1 TABLET BY MOUTH EVERY EVENING FOR ALLERGIES Rx Instructions: TAKE 1 TABLET BY MOUTH EVERY EVENING FOR ALLERGIES pantoprazole 40 mg tablet,delayed release (DR/EC) 40 mg PO DAILY Qty: 90 3RF simvastatin 20 mg tablet 20 mg PO QPM Qty: 90 3RF valsartan 320 mg tablet 320 mg PO DAILY Qty: 90 3RF prednisone 20 mg tablet 20 mg PO .COMPLEX Qty: 15 0RF Rx Instructions: 20 mg orally BID x 5 days then daily x 5 days dextromethorphan-guaifenesin 60-1,200 mg tablet extended release 12 hr 1 tab PO Q12H Qty: 60 0RF levofloxacin 500 mg tablet 500 mg PO Q24H Qty: 10 0RF albuterol sulfate 90 mcg/actuation HFA aerosol inhaler 2 inh IH Q6H PRN (Reason: shortness of breath or wheezing) 90 Days Qty: 8.5 12RF cefdinir 300 mg capsule 300 mg PO BID Qty: 20 0RF methotrexate sodium 2.5 mg tablet 15 mg PO WEEKLY metoclopramide HCl 5 mg tablet See Rx Instructions .ROUTE .COMPLEX Qty: 90 2RF Dose Instruction: TAKE 1 TABLET BY MOUTH ONCE DAILY FOR GERD Rx Instructions: TAKE 1 TABLET BY MOUTH ONCE DAILY FOR GERD trazodone 50 mg tablet 50 mg PO HS PRN (Reason: sleep) Qty: 30 2RF levocetirizine 5 mg tablet 5 mg PO HS Linzess 145 mcg capsule 145 mcg PO PRN Patient Comments: TAKE ONE CAPSULE BY MOUTH EVERY DAY BEFORE breakfast fluticasone propionate 50 mcg/actuation spray,suspension See Rx Instructions .ROUTE .COMPLEX Qty: 16 1RF Dose Instruction: USE 2 SPRAYS IN EACH NOSTRIL ONCE DAILY Rx Instructions: USE 2 SPRAYS IN EACH NOSTRIL ONCE DAILY Horizant 600 mg tablet extended release See Rx Instructions .ROUTE .COMPLEX Qty: 30 4RF Dose Instruction: TAKE 1 TABLET BY MOUTH AT BEDTIME NIGHTLY; ADMINISTER DAILY AT APPROXIMATELY 5 PM WITH FOOD/EVENING MEAL Rx Instructions: TAKE 1 TABLET BY MOUTH AT BEDTIME NIGHTLY; ADMINISTER DAILY AT APPROXIMATELY 5 PM WITH FOOD/EVENING MEAL tramadol 50 mg tablet 50 mg PO Q8H PRN (Reason: pain) Qty: 90 3RF desvenlafaxine succinate [Pristiq] 25 mg tablet extended release 24 hr 25 mg PO DAILY Qty: 30 2RF Rx Instructions: Take with Pristiq 100 mg daily. desvenlafaxine succinate [Pristiq] 100 mg tablet extended release 24 hr 100 mg PO DAILY Qty: 30 2RF ondansetron HCl 4 mg tablet 4 mg PO Q8H PRN (Reason: nausea and vomiting) Qty: 20 0RF Referrals Follow up/Referrals: Dru Giles MD [Primary Care Provider] - See instructions Activity Restrictions/Add. Instructions Additional Instructions/Restrictions: You have been diagnosed with atypical pneumonia, please take the azithromycin as directed. Please discontinue the other antibiotic Print Language Print Language: Estonian Discharge ED Provider: Rodrigo Ventura HPI <JANEY Fraire - Last Filed: 02/27/24 20:47> General Chief Complaint: Fever Stated Complaint: Fever,cough has been on antibiotics Time Seen by Provider: 02/27/24 19:30 History of Present Illness HPI narrative: Patient presents for persistent cough congestion facial pressure ear pain. Patient was diagnosed with a UTI as well as otitis media and a sinus infection on February 11. She has completed a course of Levaquin steroids and is now on her second round of antibiotics which she tells me is Cipro. Patient reports that she has not improved. She saw her PCPs office 3 days ago and reportedly was referred to ENT although that has not occurred yet. Patient reports that she has a fever and that 98.8 for her as a fever, she spoke to Dr. Giles today and he reportedly sent her to the ER for labs and chest x-ray. She denies chest pain shortness of breath hemoptysis hematochezia melena nausea vomiting diarrhea. She denies any loss of sense of taste or smell any neurologic changes. Related Data Home Medications ?Medication ?Instructions ?Recorded ?Confirmed methotrexate sodium 2.5 mg tablet 15 mg PO WEEKLY 08/09/22 02/23/24 levocetirizine 5 mg tablet 5 mg PO HS 02/17/24 02/23/24 linaclotide 145 mcg capsule 145 mcg PO PRN 02/17/24 02/23/24 (Dee) Previous Rx's ?Medication ?Instructions ?Recorded fluticasone propionate 50 See Rx Instructions .Route 05/27/23 mcg/actuation nasal .COMPLEX #16 grams spray,suspension metoclopramide HCl 5 mg tablet See Rx Instructions .Route 07/14/23 .COMPLEX #90 tabs azelastine 137 mcg (0.1 %) nasal 2 spray intranasal HS 90 days #30 10/13/23 spray mL ferrous sulfate 325 mg (65 mg See Rx Instructions .Route 10/13/23 iron) tablet,delayed release .COMPLEX #90 tabs fluticasone furoate 200 1 inh inhalation DAILY 90 days #90 10/13/23 mcg-vilanterol 25 mcg/dose ea inhalation powder (Breo Ellipta) folic acid 1 mg tablet 1 mg PO DAILY #90 tabs 10/13/23 meclizine 25 mg tablet 25 mg PO TID PRN dizziness #30 tabs 10/13/23 metoprolol tartrate 50 mg tablet 50 mg PO DAILY htn #180 tabs 10/13/23 montelukast 10 mg tablet See Rx Instructions .Route 10/13/23 .COMPLEX #90 tabs pantoprazole 40 mg tablet,delayed 40 mg PO DAILY #90 tabs 10/13/23 release simvastatin 20 mg tablet 20 mg PO QPM High cholesterol #90 10/13/23 tabs valsartan 320 mg tablet 320 mg PO DAILY HTN #90 tabs 10/13/23 trazodone 50 mg tablet 50 mg PO HS PRN sleep #30 tabs 01/14/24 gabapentin enacarbil 600 mg See Rx Instructions .Route 02/09/24 tablet,extended release (Horizant .COMPLEX #30 tabs ER) tramadol 50 mg tablet 50 mg PO Q8H PRN pain #90 tabs 02/09/24 albuterol sulfate 90 mcg/actuation 2 inh inhalation Q6H PRN shortness 02/12/24 aerosol inhaler of breath or wheezing 90 days #8.5 grams dextromethorphan-guaifenesin ER 60 1 tab PO Q12H #60 tabs 02/12/24 mg-1,200 mg tab,extend release,12hr levofloxacin 500 mg tablet 500 mg PO Q24H #10 tabs 02/12/24 prednisone 20 mg tablet 20 mg PO .COMPLEX #15 tabs 02/12/24 desvenlafaxine succinate 100 mg 100 mg PO DAILY #30 tabs 02/18/24 tablet,extended release 24 hr (Pristiq) desvenlafaxine succinate 25 mg 25 mg PO DAILY #30 tabs 02/18/24 tablet,extended release 24 hr (Pristiq) cefdinir 300 mg capsule 300 mg PO BID #20 caps 02/23/24 ondansetron HCl 4 mg tablet 4 mg PO Q8H PRN nausea and 02/26/24 vomiting #20 tabs azithromycin 500 mg tablet See Rx Instructions PO .COMPLEX #9 02/27/24 tabs Allergies Allergy/AdvReac Type Severity Reaction Status Date / Time bee venom protein (honey bee) Allergy Severe Anaphylaxis Verified 02/23/24 14:40 shellfish derived Allergy Severe Hives Verified 02/23/24 14:40 wheat Allergy Severe Hives Verified 02/23/24 14:40 Yeast Allergy Severe Hives Verified 02/23/24 14:40 Pork/Porcine Containing Allergy Verified 02/23/24 14:40 Products food allergies Allergy Severe Hives Uncoded 02/23/24 14:40 DT (diphtheria toxoid - Allergy Unknown Uncoded 02/23/24 14:40 tetanus t01 DT (diphtheria toxoid - Allergy Unknown Uncoded 02/23/24 14:40 tetanus tox Dtap (Daptacel, Infanrix, Allergy Unknown Uncoded 02/23/24 14:40 Tripedia) DTap/Hib (TriHIBit) Allergy Unknown Uncoded 02/23/24 14:40 From Penicillin V Potassium Allergy Unknown Uncoded 02/23/24 14:40 Morphine Allergy Unknown Uncoded 02/23/24 14:40 Penicillin Allergy Unknown Uncoded 02/23/24 14:40 SULFA (sulfonamide) Allergy Unknown Uncoded 02/23/24 14:40 Sulfamethoxazole Allergy Unknown Uncoded 02/23/24 14:40 Td (Decavac) Allergy Unknown Uncoded 02/23/24 14:40 Tdap (Boostrix, Adacel) Allergy Unknown Uncoded 02/23/24 14:40 Tetanus Toxoid Allergy Unknown Uncoded 02/23/24 14:40 Trimethoprim Allergy Unknown Uncoded 02/23/24 14:40 [facility] <JANEY Fraire - Last Filed: 02/27/24 20:47> [facility] Disclaimer: The information contained in this section may have been updated after the patient was seen, as this information can be updated by other users. Medical History BROWN on CPAP Moderate BROWN with nocturnal hypoxemia resolved on CPAP at 12 cm, excellent compliance, no intolerance. Adjustment disorder with mixed anxiety and depressed mood Ronels health issues cause many emotions to surface as she is trying to cope/adjust to the way her life is, or will be. Most of Martin's concerns are for the care and welfare of her autistic son, if something negative should happen to her. MDD (major depressive disorder), recurrent, with melancholic features Martin shared that there are several things that she has to do differently, or give up altogether because her health issues will not allow her to do the things anymore. This has caused Martin to be sad, irritable, scared, depressed, and at times, hopeless. Generalized anxiety disorder with panic attacks Martin reported having Anxiety and Panic attacks as a little girl, and she was known as a worry-wart. Currently, her anxious symptoms have been worse since March 2020 when she became very sick and now has several serious illnesses. Lupus Ovarian cyst Moderate persistent asthma Allergic rhinitis Mild intermittent asthma History of seronegative inflammatory arthritis Inflammatory polyarthritis Wheezing Dyspnea on exertion Surgical History History of surgery on lower extremity History of cholecystectomy History of esophagogastroduodenoscopy (EGD) History of colonoscopy History of tonsillectomy Family History Other Heart attack Hypertension Stroke Social History Smoking Status: Never smoker alcohol intake: never substance use type: denies use current occupational status: disabled Travel in the last 8 weeks: None household members: other housing: apartment lives independently: Yes marital status: single number of children: 1 Have you lived/traveled outside [place] in past 30 days?: No Contact w/someone who lives/traveled outside [place] past 30 days?: No Exposure to someone with infectious disease in past 14 days?: No Do you have a fever (greater than 100.4 F or 38 C)?: Yes Have you tested positive for COVID-19: No Exposed to someone with COVID-19 in past 14 days?: No Do you have a sore throat?: No Do you have a cough?: Yes Do you have any weakness?: No Do you have any diarrhea?: No Are you experiencing any unusual bleeding?: No Do you have any muscle aches/pain?: No Do you have any abdominal pain?: No Are you experiencing loss of taste or smell?: No Other Medical History Have you received the Flu Vaccine for this season: No Have you received the Pneumonia Vaccine: Yes <JANEY Fraire - Last Filed: 02/27/24 20:47> ROS Obtained: Yes Systems reviewed as appropriate & no additional complaints except as documented Physical Exam <JANEY Fraire - Last Filed: 02/27/24 20:47> General General appearance: alert and in no apparent distress Respiratory Respiratory exam: Present normal lung sounds bilaterally Cardiovascular Cardiovascular exam: Present regular rate Neurological Exam Neurological exam: Present alert and oriented X3 <Rodrigo Ventura MD - Last Filed: 02/27/24 23:42> Eye Eye exam: Present normal appearance ENT ENT exam: Present normal exam Chest Chest inspection: Present symmetric chest wall rise Abdominal Exam Abdominal exam: Present soft; Absent tenderness, guarding or rebound Extremities Exam Extremities exam: Present full ROM; Absent tenderness Psychiatric Psychiatric exam: Present normal affect Skin Skin exam: Present warm and normal color HEART Score <JANEY Fraire - Last Filed: 02/27/24 20:47> HEART Score HEART Score assessment performed?: No Critical Care <JANEY Fraire - Last Filed: 02/27/24 20:47> Critical Care Time Critical Care Time: No Medical Decision Making <JANEY Fraire - Last Filed: 02/27/24 20:47> Medical Records Medical records reviewed: Yes I reviewed the patient's medical records. Magdi Inquiry Pt receiving controlled substance: No Vital Signs Vital Signs: 02/27/24 19:28 02/27/24 19:50 02/27/24 22:03 Temperature 98.8 F Temperature Source Oral Oral Pulse Rate 70 Pulse Rate [Left] 74 Respiratory Rate 16 14 Blood Pressure 158/58 H Blood Pressure [Right Arm] 161/82 H Blood Pressure Mean [Right Arm] 108 02 Sat by Pulse Oximetry 98 94 L Oxygen Delivery Method Room Air 02/27/24 22:22 Temperature 98.4 F Temperature Source Oral Pulse Rate 87 Pulse Rate [Left] Respiratory Rate 16 Blood Pressure 130/47 L Blood Pressure [Right Arm] Blood Pressure Mean [Right Arm] 02 Sat by Pulse Oximetry Oxygen Delivery Method Room Air Lab Data Lab results reviewed: Yes I reviewed the patient's lab results. Labs: Lab Results 02/27/24 20:39: WBC 9.7, RBC 4.00 L, Hgb 11.6 L, Hct 37.6, MCV 94.0, MCH 29.0, M CHC 30.9 L, RDW 15.0, Plt Count 139 L, MPV 10.4, Neut % (Auto) 59.9, Lymph % (Auto) 24.8, Lyman % (Auto) 11.2 H, Eos % (Auto) 2.8, Baso % (Auto) 0.8, Neut # (Auto) 5.8, Lymph # (Auto) 2.4, Lyman # (Auto) 1.1 H, Eos # (Auto) 0.3, Baso # (Auto) 0.1, Sodium 140, Potassium 4.5, Chloride 110 H, Carbon Dioxide 24, Anion Gap 10.5, BUN 17, Creatinine 0.90, Estimated Creat Clear 66, Estimated GFR 64, Est GFR ( Amer) 78, Glucose 178 H, Calcium 8.7, Magnesium 1.9, Total Bilirubin 0.8, AST 48 H, ALT 23, Alkaline Phosphatase 174 H, Total Protein 6.9, Albumin 3.6, Globulin 3.3 H, Albumin/Globulin Ratio 1.1, Procalcitonin 0.187 02/27/24 20:41: Chlamy pneumoniae PCR Not detected, Adenovirus (PCR) Not detected, B. pertussis DNA (PCR) Not detected, Coronavirus OC43 (PCR) Not detected, Coronavirus HKU1 (PCR) Not detected, Coronavirus 229E (PCR) Not detected, SARS-CoV-2 (PCR) Not detected, Coronavirus NL63 (PCR) Not detected, Human Metapneumovir PCR Not detected, Influenza A (H1) PCR Not detected, Influ A (H1N1/09) PCR Not detected, Influenza A (H3) PCR Not detected, Influenza Type A (PCR) Not detected, Influenza Type B (PCR) Not detected, M. pneumoniae (PCR) Not detected, Parainfluenza 1 (PCR) Not detected, Parainfluenza 2 (PCR) Not detected, Parainfluenza 3 (PCR) Not detected, Parainfluenza 4 (PCR) Not detected, RSV (PCR) Not detected, Entero/Rhino (PCR) Not detected 02/27/24 20:39 02/27/24 20:39 Response Orders (Tests/Meds): ED MEDICATIONS Discontinued Medications Generic Name Dose Route Start Last Admin Trade Name Freq PRN Reason Stop Dose Admin Acetaminophen 1,000 mg 02/27/24 20:06 02/27/24 20:27 Acetaminophen 500mg Tab PO 02/27/24 20:07 1,000 mg ONCE ONE Administration Ketorolac Tromethamine 15 mg 02/27/24 20:06 02/27/24 21:38 Ketorolac 30mg/Ml Vial IV 02/27/24 20:07 Not Given ONCE ONE Ketorolac Tromethamine 30 mg 02/27/24 20:25 02/27/24 20:27 Ketorolac 30mg/Ml Vial IM 02/27/24 20:26 30 mg ONCE ONE Administration ORDERS Category Date Time Status Chest XR 2 view (NOT portable) [XR chest 2V] Stat Exams 02/27/24 20:06 Completed CBC w/Auto Diff [Complete Blood Count Auto Diff] Stat Lab 02/27/24 20:39 Completed CMP [Comprehensive Metabolic Panel] Stat Lab 02/27/24 20:39 Completed Full Resp Panel w/COVID (H) Routine Lab 02/27/24 20:41 Completed Magnesium Stat Lab 02/27/24 20:39 Completed Procalcitonin Stat Lab 02/27/24 20:39 Completed MDM Narrative Medical Decision Narrative: In summary patient is a 58-year-old female who presents to the emergency department for evaluation of persistent sinusitis. Patient is hemodynamically stable upon arrival, afebrile. Physical exam is remarkable for normal bilateral tympanic membranes and external auditory canals, clear breath sounds without adventitious sounds, normal sinus rhythm on the bedside monitor, stable vital signs, however patient does have tenderness to palpation and percussion over the maxillary and frontal sinuses.. Differential diagnosis includes sinusitis versus bronchitis or other viral respiratory tract infection, versus bacterial infection etc. Initial workup will be conducted with hematologic labs plain film chest x-ray. Initial interventions include p.o. Tylenol IM Toradol. Initial workup is ordered and pending at the time of handoff to Dr. Ventura at 2100 hrs. <Rodrigo Ventura MD - Last Filed: 02/27/24 23:42> Vital Signs Vital Signs: 02/27/24 19:28 02/27/24 19:50 02/27/24 22:03 Temperature 98.8 F Temperature Source Oral Oral Pulse Rate 70 Pulse Rate [Left] 74 Respiratory Rate 16 14 Blood Pressure 158/58 H Blood Pressure [Right Arm] 161/82 H Blood Pressure Mean [Right Arm] 108 02 Sat by Pulse Oximetry 98 94 L Oxygen Delivery Method Room Air 02/27/24 22:22 Temperature 98.4 F Temperature Source Oral Pulse Rate 87 Pulse Rate [Left] Respiratory Rate 16 Blood Pressure 130/47 L Blood Pressure [Right Arm] Blood Pressure Mean [Right Arm] 02 Sat by Pulse Oximetry Oxygen Delivery Method Room Air Lab Data Labs: Lab Results 02/27/24 20:39: WBC 9.7, RBC 4.00 L, Hgb 11.6 L, Hct 37.6, MCV 94.0, MCH 29.0, M CHC 30.9 L, RDW 15.0, Plt Count 139 L, MPV 10.4, Neut % (Auto) 59.9, Lymph % (Auto) 24.8, Lyman % (Auto) 11.2 H, Eos % (Auto) 2.8, Baso % (Auto) 0.8, Neut # (Auto) 5.8, Lymph # (Auto) 2.4, Lyman # (Auto) 1.1 H, Eos # (Auto) 0.3, Baso # (Auto) 0.1, Sodium 140, Potassium 4.5, Chloride 110 H, Carbon Dioxide 24, Anion Gap 10.5, BUN 17, Creatinine 0.90, Estimated Creat Clear 66, Estimated GFR 64, Est GFR ( Amer) 78, Glucose 178 H, Calcium 8.7, Magnesium 1.9, Total Bilirubin 0.8, AST 48 H, ALT 23, Alkaline Phosphatase 174 H, Total Protein 6.9, Albumin 3.6, Globulin 3.3 H, Albumin/Globulin Ratio 1.1, Procalcitonin 0.187 02/27/24 20:41: Chlamy pneumoniae PCR Not detected, Adenovirus (PCR) Not detected, B. pertussis DNA (PCR) Not detected, Coronavirus OC43 (PCR) Not detected, Coronavirus HKU1 (PCR) Not detected, Coronavirus 229E (PCR) Not detected, SARS-CoV-2 (PCR) Not detected, Coronavirus NL63 (PCR) Not detected, Human Metapneumovir PCR Not detected, Influenza A (H1) PCR Not detected, Influ A (H1N1/09) PCR Not detected, Influenza A (H3) PCR Not detected, Influenza Type A (PCR) Not detected, Influenza Type B (PCR) Not detected, M. pneumoniae (PCR) Not detected, Parainfluenza 1 (PCR) Not detected, Parainfluenza 2 (PCR) Not detected, Parainfluenza 3 (PCR) Not detected, Parainfluenza 4 (PCR) Not detected, RSV (PCR) Not detected, Entero/Rhino (PCR) Not detected Response Orders (Tests/Meds): ED MEDICATIONS Discontinued Medications Generic Name Dose Route Start Last Admin Trade Name Freq PRN Reason Stop Dose Admin Acetaminophen 1,000 mg 02/27/24 20:06 02/27/24 20:27 Acetaminophen 500mg Tab PO 02/27/24 20:07 1,000 mg ONCE ONE Administration Ketorolac Tromethamine 15 mg 02/27/24 20:06 02/27/24 21:38 Ketorolac 30mg/Ml Vial IV 02/27/24 20:07 Not Given ONCE ONE Ketorolac Tromethamine 30 mg 02/27/24 20:25 02/27/24 20:27 Ketorolac 30mg/Ml Vial IM 02/27/24 20:26 30 mg ONCE ONE Administration ORDERS Category Date Time Status Chest XR 2 view (NOT portable) [XR chest 2V] Stat Exams 02/27/24 20:06 Completed CBC w/Auto Diff [Complete Blood Count Auto Diff] Stat Lab 02/27/24 20:39 Completed CMP [Comprehensive Metabolic Panel] Stat Lab 02/27/24 20:39 Completed Full Resp Panel w/COVID ([facility]) Routine Lab 02/27/24 20:41 Completed Magnesium Stat Lab 02/27/24 20:39 Completed Procalcitonin Stat Lab 02/27/24 20:39 Completed MDM Narrative Medical Decision Narrative: HematomaIn summary patient is a 58-year-old female who presents to the emergency department for evaluation of persistent sinusitis. Patient is hemodynamically stable upon arrival, afebrile. Physical exam is remarkable for normal bilateral tympanic membranes and external auditory canals, clear breath sounds without adventitious sounds, normal sinus rhythm on the bedside monitor, stable vital signs, however patient does have tenderness to palpation and percussion over the maxillary and frontal sinuses.. Differential diagnosis includes sinusitis versus bronchitis or other viral respiratory tract infection, versus bacterial infection etc. Initial workup will be conducted with hematologic labs plain film chest x-ray. Initial interventions include p.o. Tylenol IM Toradol. Initial workup is ordered and pending at the time of handoff to Dr. Ventura at 2100 hrs. Upon assumption of my care patient is stable, in no acute respiratory distress, and well appearing. Chest x-ray independently interpreted by me concerning for possible atypical pneumonia and patient was given azithromycin. Patient was given strict return precautions, all questions answered, patient discharged in stable condition.
--- NOTE | 2024-02-27 20:06 | XR_ITS ---
PROCEDURE INFORMATION: Exam: XR Chest Exam date and time: 02/27/2024 8:09 PM Age: 58 years old Clinical indication: Cough and fever TECHNIQUE: Imaging protocol: Radiologic exam of the chest. Views: 2 views. COMPARISON: CR XR CHEST PORTABLE 10/01/2020 11:40 PM FINDINGS: Lungs: Mildly increased central interstitial lung markings and peribronchial cuffing. Pleural spaces: No pleural effusion. No pneumothorax. Heart/Mediastinum: Mild cardiac prominence. Bones/joints: No acute findings. IMPRESSION: Mildly increased central interstitial lung markings and peribronchial cuffing, findings which may be seen with infection, pulmonary edema or small airways process.
[2024-02-27] MEDS: KETOROLAC 30MG/ML VIAL 30 MG IM (20:27)
[2024-02-27] MEDS: ACETAMINOPHEN 500MG TAB 1000 MG PO (20:27)
[2024-02-27 20:46] LABS: Adenovirus,PCR Not Detected (NotDetected); Bordetella Pertussis Not Detected (NotDetected); Chlamydophila Pneumoniae, PCR Not Detected (NotDetected); Coronavirus 19, PCR Not Detected (NotDetected); Coronavirus 229E Not Detected (NotDetected); Coronavirus NL63 Not Detected (NotDetected); Coronavirus OC43 Not Detected (NotDetected); Coronovirus HKU1,PCR Not Detected (NotDetected); Human Metapneumovirus Not Detected (NotDetected); Influenza A, PCR Not Detected (NotDetected); Influenza AH1, 2009 Not Detected (NotDetected); Influenza AH1, PCR Not Detected (NotDetected); Influenza AH3,PCR Not Detected (NotDetected); Influenza B, PCR Not Detected (NotDetected); Mycoplasma Pneumoniae, PCR Not Detected (NotDetected); Parainfluenza 1, PCR Not Detected (NotDetected); Parainfluenza 2, PCR Not Detected (NotDetected); Parainfluenza 3, PCR Not Detected (NotDetected); Parainfluenza 4, PCR Not Detected (NotDetected); Respiratory Syncytial Virus Not Detected (NotDetected); Rhinovirus/Enterovirus Not Detected (NotDetected)
[2024-02-27 20:51] LABS: Hematocrit 37.6 % (37.0-47.0); Hemoglobin 11.6 g/dL (12.2-16.2); Mean Corpuscular HGB Conc 30.9 g/dL (31.8-35.4); White Blood Count 9.7 K/mm3 (4.8-10.8)
[2024-02-27 20:52] LABS: Lymphocytes % 24.8 % (10-50); Mean Platelet Volume 10.4 fl (7.4-10.4); Monocytes % 11.2 % (1.7-9.3); Neutrophils % 59.9 % (37.0-80.0); Platelet Count 139 K/mm3 (142-424)
[2024-02-27 20:53] LABS: Basophils # 0.1 K/mm3 (0-0.2); Basophils % 0.8 % (0.1-2.0); Eosinophils # 0.3 K/mm3 (0.0-0.4); Eosinophils % 2.8 % (0.1-12.0); Lymphocytes # 2.4 K/mm3 (0.7-4.5); Monocytes # 1.1 K/mm3 (0.1-1.0); Neutrophils # 5.8 K/mm3 (1.8-7.8)
[2024-02-27 20:54] LABS: Alanine Aminotransferase 23 U/L (12-78); Albumin Level 3.6 g/dl (3.5-5.0); Albumin/Globulin Ratio 1.1 (1.1-1.8); Alkaline Phosphatase 174 U/L (38-126); Anion Gap 10.5 mEq/L (5-15); Aspartate Amino Transferase 48 U/L (14-36); Bilirubin,Total 0.8 mg/dl (0.2-1.3); Blood Urea Nitrogen 17 mg/dl (7-17); Calcium 8.7 mg/dl (8.4-10.2); Carbon Dioxide 24 mmol/L (22.0-30.0); Chloride 110 mmol/L (98-107); Creatinine Clearance Estimated 66 mL/min (50-200); Estimated Glomerular Filt Rate 64 ml/min (>60); GFR (African American) 78 ML/MIN (>60); Globulin 3.3 g/dL (1.3-3.2); Glucose 178 mg/dl (74-100); Magnesium 1.9 mg/dl (1.6-2.3); Potassium 4.5 mmoL/L (3.5-5.1); Sodium 140 mmol/L (136-145); Total Protein,Serum 6.9 g/dl (6.3-8.2)
[2024-02-27 21:11] LABS: Procalcitonin 0.187 ng/mL (0.0-2.0)
[2024-02-27 22:03] VITALS: BP 158/58; PULSE 70; RESP 14; O2SAT 94
[2024-02-27 22:22] VITALS: BP 130/47; PULSE 87; RESP 16; TEMP 36.9; O2SAT 96
== END 2024-02-27 22:27 | disposition home or self-care (01) ==
PROVIDERS: Physician Assistant; Emergency Provider Student in an Organized Health Care Education/Training Program; PCP Family Medicine
DX: R50.9 Fever, unspecified (principal); R05.9 Cough, unspecified; R09.81 Nasal congestion; H92.03 Otalgia, bilateral
CPT/HCPCS: 71046; 80053; 83735; 84145; 85025; 87633; 96372; 99283; J1885

== ENCOUNTER 2024-03-11 09:52 | Outpatient (CLI) | payer MEDICARE, SELFPAY ==
[2024-03-11] MEDS: ALBUTEROL 0.083% 2.5 MG/3 ML NEB IH (11:05)
== END 2024-03-11 23:59 | disposition home or self-care (01) ==
LOC: RT 09:54
PROVIDERS: PCP Family Medicine; Visit Provider Internal Medicine Pulmonary Disease
DX: R06.09 Other forms of dyspnea (principal)
CPT/HCPCS: 94060; 94618; 94726; 94729; J7613

== ENCOUNTER 2024-03-12 10:54 | Emergency (ER) | payer MEDICARE, SELFPAY ==
[2024-03-12 12:25] VITALS: BP 140/74; PULSE 74; RESP 19; TEMP 36.9; O2SAT 97; BMI 54.7
[2024-03-12 12:36] LABS: Coronavirus 19, PCR Not Detected (NotDetected); Human Rhinovirus Not Detected (NotDetected); Influenza A, PCR Not Detected (NotDetected); Influenza B, PCR Not Detected (NotDetected); Respiratory Syncytial Virus Not Detected (NotDetected)
--- NOTE | 2024-03-12 12:51 | EXP.UTC ---
Discharge Plan Disposition Patient Disposition: Home, Self-Care Condition: Good Prescriptions Prescriptions: New guaifenesin 400 mg tablet 400 mg PO Q4H PRN (Reason: cough) Qty: 60 0RF No Action ferrous sulfate 325 mg (65 mg iron) tablet,delayed release (DR/EC) See Rx Instructions .ROUTE .COMPLEX Qty: 90 2RF Dose Instruction: TAKE 1 TABLET BY MOUTH ONCE DAILY Rx Instructions: TAKE 1 TABLET BY MOUTH ONCE DAILY folic acid 1 mg tablet 1 mg PO DAILY Qty: 90 3RF meclizine 25 mg tablet 25 mg PO TID PRN (Reason: dizziness) Qty: 30 1RF metoprolol tartrate 50 mg tablet 50 mg PO DAILY Qty: 180 3RF pantoprazole 40 mg tablet,delayed release (DR/EC) 40 mg PO DAILY Qty: 90 3RF simvastatin 20 mg tablet 20 mg PO QPM Qty: 90 3RF valsartan 320 mg tablet 320 mg PO DAILY Qty: 90 3RF dextromethorphan-guaifenesin 60-1,200 mg tablet extended release 12 hr 1 tab PO Q12H Qty: 60 0RF albuterol sulfate 90 mcg/actuation HFA aerosol inhaler 2 inh IH Q6H PRN (Reason: shortness of breath or wheezing) 90 Days Qty: 8.5 12RF methotrexate sodium 2.5 mg tablet 15 mg PO WEEKLY metoclopramide HCl 5 mg tablet See Rx Instructions .ROUTE .COMPLEX Qty: 90 2RF Dose Instruction: TAKE 1 TABLET BY MOUTH ONCE DAILY FOR GERD Rx Instructions: TAKE 1 TABLET BY MOUTH ONCE DAILY FOR GERD fluticasone furoate-vilanterol [Breo Ellipta] 200-25 mcg/dose blister with device 1 inh inhalation DAILY 90 Days Qty: 90 2RF fluticasone propionate 50 mcg/actuation spray,suspension See Rx Instructions .ROUTE .COMPLEX Qty: 16 1RF Dose Instruction: USE 2 SPRAYS IN EACH NOSTRIL ONCE DAILY Rx Instructions: USE 2 SPRAYS IN EACH NOSTRIL ONCE DAILY azelastine 137 mcg (0.1 %) spray,non-aerosol 2 spray intranasal HS 90 Days Qty: 30 2RF Rx Instructions: administer into each nostril ipratropium-albuterol 0.5 mg-3 mg(2.5 mg base)/3 mL solution for nebulization 3 ml inhalation QID PRN (Reason: shortness of breath or wheezing) 90 Days Qty: 270 3RF montelukast 10 mg tablet See Rx Instructions .ROUTE .COMPLEX Qty: 90 2RF Dose Instruction: TAKE 1 TABLET BY MOUTH EVERY EVENING FOR ALLERGIES Rx Instructions: TAKE 1 TABLET BY MOUTH EVERY EVENING FOR ALLERGIES levocetirizine 5 mg tablet 5 mg PO HS Linzess 145 mcg capsule 145 mcg PO PRN Patient Comments: TAKE ONE CAPSULE BY MOUTH EVERY DAY BEFORE breakfast Horizant 600 mg tablet extended release See Rx Instructions .ROUTE .COMPLEX Qty: 30 4RF Dose Instruction: TAKE 1 TABLET BY MOUTH AT BEDTIME NIGHTLY; ADMINISTER DAILY AT APPROXIMATELY 5 PM WITH FOOD/EVENING MEAL Rx Instructions: TAKE 1 TABLET BY MOUTH AT BEDTIME NIGHTLY; ADMINISTER DAILY AT APPROXIMATELY 5 PM WITH FOOD/EVENING MEAL tramadol 50 mg tablet 50 mg PO Q8H PRN (Reason: pain) Qty: 90 3RF desvenlafaxine succinate [Pristiq] 100 mg tablet extended release 24 hr 100 mg PO DAILY Qty: 30 2RF ondansetron HCl 4 mg tablet 4 mg PO Q8H PRN (Reason: nausea and vomiting) Qty: 20 0RF mirtazapine [Remeron] 15 mg tablet 7.5 - 15 mg PO HS Qty: 30 2RF Referrals Follow up/Referrals: Dru Giles MD [Primary Care Provider] - See instructions Activity Restrictions/Add. Instructions Additional Instructions/Restrictions: Take medication as prescribed. Increase fluids and rest. Follow up with PCP. Clinical Impressions Clinical Impression: Upper respiratory tract infection Qualifiers: URI type: unspecified URI Qualified Code(s): J06.9 - Acute upper respiratory infection, unspecified Instructions Patient Instructions: DI for Viral Upper Respiratory Infection -- Adult Print Language Print Language: Andorran Discharge ED Provider: Erica Randle [facility] General Stated complaint: fever, headache, ear pain Mode of Arrival: Ambulatory Source of Information: Patient Limitations: No Limitations Time Seen by Provider: 03/12/24 12:50 Description of Symptoms (Recalled from Triage Doc. by RN): PATIENT C/O FEVER, COUGH AND EAR PAIN HEENT Symptoms (Recalled from RN notes): Yes Resp Symptoms (Recalled from RN notes): Yes Skin Symptoms (Recalled from RN notes): No MS Symptoms (Recalled from RN notes): No Functional Status (Recalled from RN notes): WNL History of Present Illness Provider Complaint: Pt reports that she woke up this morning with a temp of 100.6. She states that she is just getting over pneumonia and saw her amf mechanic yesterday for PFT. Pt states that her ears are now hurting. She reports taking 3 rounds of antibiotics recently. Related Data Home Medications ?Medication ?Instructions ?Recorded ?Confirmed methotrexate sodium 2.5 mg tablet 15 mg PO WEEKLY 08/09/22 03/11/24 levocetirizine 5 mg tablet 5 mg PO HS 02/17/24 03/11/24 linaclotide 145 mcg capsule 145 mcg PO PRN 02/17/24 03/11/24 (Linzess) Previous Rx's ?Medication ?Instructions ?Recorded metoclopramide HCl 5 mg tablet See Rx Instructions .Route 07/14/23 .COMPLEX #90 tabs ferrous sulfate 325 mg (65 mg See Rx Instructions .Route 10/13/23 iron) tablet,delayed release .COMPLEX #90 tabs folic acid 1 mg tablet 1 mg PO DAILY #90 tabs 10/13/23 meclizine 25 mg tablet 25 mg PO TID PRN dizziness #30 tabs 10/13/23 metoprolol tartrate 50 mg tablet 50 mg PO DAILY htn #180 tabs 10/13/23 pantoprazole 40 mg tablet,delayed 40 mg PO DAILY #90 tabs 10/13/23 release simvastatin 20 mg tablet 20 mg PO QPM High cholesterol #90 10/13/23 tabs valsartan 320 mg tablet 320 mg PO DAILY HTN #90 tabs 10/13/23 gabapentin enacarbil 600 mg See Rx Instructions .Route 02/09/24 tablet,extended release (Horizant .COMPLEX #30 tabs ER) tramadol 50 mg tablet 50 mg PO Q8H PRN pain #90 tabs 02/09/24 albuterol sulfate 90 mcg/actuation 2 inh inhalation Q6H PRN shortness 02/12/24 aerosol inhaler of breath or wheezing 90 days #8.5 grams dextromethorphan-guaifenesin ER 60 1 tab PO Q12H #60 tabs 02/12/24 mg-1,200 mg tab,extend release,12hr desvenlafaxine succinate 100 mg 100 mg PO DAILY #30 tabs 02/18/24 tablet,extended release 24 hr (Pristiq) ondansetron HCl 4 mg tablet 4 mg PO Q8H PRN nausea and 02/26/24 vomiting #20 tabs mirtazapine 15 mg tablet (Remeron) 7.5 - 15 mg (0.5 - 1 x 15 mg) PO 03/09/24 HS #30 tabs azelastine 137 mcg (0.1 %) nasal 2 spray intranasal HS 90 days #30 03/11/24 spray mL fluticasone furoate 200 1 inh inhalation DAILY 90 days #90 03/11/24 mcg-vilanterol 25 mcg/dose ea inhalation powder (Breo Ellipta) fluticasone propionate 50 See Rx Instructions .Route 03/11/24 mcg/actuation nasal .COMPLEX #16 grams spray,suspension ipratropium 0.5 mg-albuterol 3 mg 3 ml inhalation QID PRN shortness 03/11/24 (2.5 mg base)/3 mL nebulization of breath or wheezing 90 days #270 soln mL montelukast 10 mg tablet See Rx Instructions .Route 03/11/24 .COMPLEX #90 tabs guaifenesin 400 mg tablet 400 mg PO Q4H PRN cough #60 tabs 03/12/24 Allergies Allergy/AdvReac Type Severity Reaction Status Date / Time bee venom protein (honey bee) Allergy Severe Anaphylaxis Verified 03/11/24 11:47 shellfish derived Allergy Severe Hives Verified 03/11/24 11:47 wheat Allergy Severe Hives Verified 03/11/24 11:47 Yeast Allergy Severe Hives Verified 03/11/24 11:47 Pork/Porcine Containing Allergy Verified 03/11/24 11:47 Products food allergies Allergy Severe Hives Uncoded 03/11/24 11:47 DT (diphtheria toxoid - Allergy Unknown Uncoded 03/11/24 11:47 tetanus t01 DT (diphtheria toxoid - Allergy Unknown Uncoded 03/11/24 11:47 tetanus tox Dtap (Daptacel, Infanrix, Allergy Unknown Uncoded 03/11/24 11:47 Tripedia) DTap/Hib (TriHIBit) Allergy Unknown Uncoded 03/11/24 11:47 From Penicillin V Potassium Allergy Unknown Uncoded 03/11/24 11:47 Morphine Allergy Unknown Uncoded 03/11/24 11:47 Penicillin Allergy Unknown Uncoded 03/11/24 11:47 SULFA (sulfonamide) Allergy Unknown Uncoded 03/11/24 11:47 Sulfamethoxazole Allergy Unknown Uncoded 03/11/24 11:47 Td (Decavac) Allergy Unknown Uncoded 03/11/24 11:47 Tdap (Boostrix, Adacel) Allergy Unknown Uncoded 03/11/24 11:47 Tetanus Toxoid Allergy Unknown Uncoded 03/11/24 11:47 Trimethoprim Allergy Unknown Uncoded 03/11/24 11:47 Worker's Comp Is this a Worker's Comp case?: No [facility] Disclaimer: The information contained in this section may have been updated after the patient was seen, as this information can be updated by other users. Medical History Retracted ear drum Otalgia, left ear Eustachian tube dysfunction BROWN on CPAP Moderate BROWN with nocturnal hypoxemia resolved on CPAP at 12 cm, excellent compliance, no intolerance. Adjustment disorder with mixed anxiety and depressed mood Martin's health issues cause many emotions to surface as she is trying to cope/adjust to the way her life is, or will be. Most of Martin's concerns are for the care and welfare of her autistic son, if something negative should happen to her. MDD (major depressive disorder), recurrent, with melancholic features Martin shared that there are several things that she has to do differently, or give up altogether because her health issues will not allow her to do the things anymore. This has caused Martin to be sad, irritable, scared, depressed, and at times, hopeless. Generalized anxiety disorder with panic attacks Martin reported having Anxiety and Panic attacks as a little girl, and she was known as a worry-wart. Currently, her anxious symptoms have been worse since March 2020 when she became very sick and now has several serious illnesses. Lupus Ovarian cyst Moderate persistent asthma Allergic rhinitis Mild intermittent asthma History of seronegative inflammatory arthritis Inflammatory polyarthritis Wheezing Dyspnea on exertion Surgical History History of surgery on lower extremity History of cholecystectomy History of esophagogastroduodenoscopy (EGD) History of colonoscopy History of tonsillectomy Family History Other Heart attack Hypertension Stroke Social History Smoking Status: Never smoker alcohol intake: never substance use type: denies use current occupational status: disabled Travel in the last 8 weeks: None household members: other housing: apartment lives independently: Yes marital status: single number of children: 1 Have you lived/traveled outside [place] in past 30 days?: No Contact w/someone who lives/traveled outside [place] past 30 days?: No Exposure to someone with infectious disease in past 14 days?: No Do you have a fever (greater than 100.4 F or 38 C)?: Yes Have you tested positive for COVID-19: No Exposed to someone with COVID-19 in past 14 days?: No Do you have a sore throat?: No Do you have a cough?: No Do you have any weakness?: No Do you have any diarrhea?: No Are you experiencing any unusual bleeding?: No Do you have any muscle aches/pain?: Yes Do you have any abdominal pain?: No Are you experiencing loss of taste or smell?: No ROS Obtained: Yes All systems reviewed & no additional complaints except as documented Constitutional Constitutional: Reports system reviewed and no additional complaints, except as documented and Reports malaise Eyes Eyes: Reports system reviewed and no additional complaints, except as documented ENT Ears, Nose, Mouth, and Throat: Reports system reviewed and no additional complaints, except as documented, Reports otalgia and Reports nasal discharge Cardiovascular Cardiovascular: Reports system reviewed and no additional complaints, except as documented Respiratory Respiratory: Reports system reviewed and no additional complaints, except as documented and Reports cough Gastrointestinal Gastrointestingal: Reports system reviewed and no additional complaints, except as documented Genitourinary Female Genitourinary: Reports system reviewed and no additional complaints, except as documented Musculoskeletal Musculoskeletal: Reports system reviewed and no additional complaints, except as documented Integumentary/Breasts Skin/Breast: Reports system reviewed and no additional complaints, except as documented Neurologic Neurologic: Reports system reviewed and no additional complaints, except as documented Endocrine Endocrine: Reports system reviewed and no additional complaints, except as documented Hematologic/Lymphatic Henatologic/Lymphatic: Reports system reviewed and no additional complaints, except as documented Allergic/Immunologic Allergic/Immunologic: Reports system reviewed and no additional complaints, except as documented Physical Exam General General appearance: alert and in no apparent distress Head Head exam: atraumatic and normocephalic Eye Eye exam: Present normal appearance Expanded ENT Exam External ear exam: Present normal external inspection TM/Canal exam: Bilateral TM: effusion Nose exam: Absent sinus tenderness Nasal speculum exam: Bilateral: other (clear drainage) Mouth exam: Present normal external inspection Teeth exam: Present normal inspection Throat exam: Present normal inspection Neck Neck exam: Present normal inspection; Absent lymphadenopathy Chest Chest inspection: Present normal inspection and symmetric chest wall rise Respiratory Respiratory exam: Present other (course sounds bilaterally) Cardiovascular Cardiovascular exam: Present regular rate and JVD Abdominal Exam Abdominal exam: Present soft and normal bowel sounds Extremities Exam Extremities exam: Present normal inspection Back Exam Back exam: Present normal inspection Neurological Exam Neurological exam: Present alert and oriented X3 Psychiatric Psychiatric exam: Present normal affect and normal mood Skin Skin exam: Present warm, dry and intact Lymphatic Lymphatic Findings: no adenopathy Medical Decision Making Medical Records Screening: Per USPSTF and CDC recommendations, given the prevalence of disease in our region, it is our hospital?s policy to screen for HIV and viral Hepatitis for all patients aged 18 and over and those with ongoing risk factors. Magdi Inquiry Pt receiving controlled substance: No Magdi was queried for this patient: No Vital Signs: 03/12/24 12:25 Temperature 98.4 F Temperature Source Oral Pulse Rate [Left Brachial] 74 Respiratory Rate 19 Blood Pressure [Left Arm] 140/74 Blood Pressure Mean [Left Arm] 96 Blood Pressure Source [Left Arm] Automatic Cuff Blood Pressure Position [Left Arm] Sitting 02 Sat by Pulse Oximetry 97 Oxygen Delivery Method Room Air Orders (Tests/Meds): ORDERS Category Date Time Status Mini Respiratory Panel Stat Lab 03/12/24 12:33 Received
[2024-03-12 13:13] VITALS: BP 140/74; PULSE 74; RESP 19; TEMP 36.9; O2SAT 97
== END 2024-03-12 13:17 | disposition home or self-care (01) ==
PROVIDERS: Emergency Provider Nurse Practitioner Family; PCP Family Medicine
DX: J06.9 Acute upper respiratory infection, unspecified (principal)
CPT/HCPCS: 87631; 99213; G0381

== ENCOUNTER 2024-03-17 09:47 | Outpatient (CLI) | payer MEDICARE, SELFPAY ==
[2024-03-17 19:10] LABS: Hemoglobin A1C 6.9 % (4.0-6.0)
[2024-03-17 20:32] LABS: HIV Combo NEGATIVE (Negative)
[2024-03-17 20:41] LABS: Hepatitis C Ab Qual. W/ RFX NEGATIVE (Negative)
== END 2024-03-17 23:59 | disposition home or self-care (01) ==
LOC: LAB.DROPOF 03-18 11:43
PROVIDERS: PCP Family Medicine; Visit Provider Family Medicine
DX: H35.30 Unspecified macular degeneration (principal); Z11.59 Encounter for screening for other viral diseases
CPT/HCPCS: 83036; 86803; 87389

== ENCOUNTER 2024-04-10 23:02 | Emergency (ER) | payer MEDICARE, SELFPAY ==
[2024-04-10 23:04] VITALS: BP 178/66; PULSE 90; RESP 16; TEMP 37; O2SAT 96; BMI 47.0
--- NOTE | 2024-04-10 23:06 | ED_ITS ---
Discharge Plan Disposition Patient Disposition: Home, Self-Care Condition: Good Prescriptions Prescriptions: No Action ferrous sulfate 325 mg (65 mg iron) tablet,delayed release (DR/EC) See Rx Instructions .ROUTE .COMPLEX Qty: 90 2RF Dose Instruction: TAKE 1 TABLET BY MOUTH ONCE DAILY Rx Instructions: TAKE 1 TABLET BY MOUTH ONCE DAILY folic acid 1 mg tablet 1 mg PO DAILY Qty: 90 3RF meclizine 25 mg tablet 25 mg PO TID PRN (Reason: dizziness) Qty: 30 1RF metoprolol tartrate 50 mg tablet 50 mg PO DAILY Qty: 180 3RF pantoprazole 40 mg tablet,delayed release (DR/EC) 40 mg PO DAILY Qty: 90 3RF simvastatin 20 mg tablet 20 mg PO QPM Qty: 90 3RF valsartan 320 mg tablet 320 mg PO DAILY Qty: 90 3RF dextromethorphan-guaifenesin 60-1,200 mg tablet extended release 12 hr 1 tab PO Q12H Qty: 60 0RF albuterol sulfate 90 mcg/actuation HFA aerosol inhaler 2 inh IH Q6H PRN (Reason: shortness of breath or wheezing) 90 Days Qty: 8.5 12RF methotrexate sodium 2.5 mg tablet 15 mg PO WEEKLY metoclopramide HCl 5 mg tablet See Rx Instructions .ROUTE .COMPLEX Qty: 90 2RF Dose Instruction: TAKE 1 TABLET BY MOUTH ONCE DAILY FOR GERD Rx Instructions: TAKE 1 TABLET BY MOUTH ONCE DAILY FOR GERD fluticasone furoate-vilanterol [Breo Ellipta] 200-25 mcg/dose blister with device 1 inh inhalation DAILY 90 Days Qty: 90 2RF fluticasone propionate 50 mcg/actuation spray,suspension See Rx Instructions .ROUTE .COMPLEX Qty: 16 1RF Dose Instruction: USE 2 SPRAYS IN EACH NOSTRIL ONCE DAILY Rx Instructions: USE 2 SPRAYS IN EACH NOSTRIL ONCE DAILY azelastine 137 mcg (0.1 %) spray,non-aerosol 2 spray intranasal HS 90 Days Qty: 30 2RF Rx Instructions: administer into each nostril ipratropium-albuterol 0.5 mg-3 mg(2.5 mg base)/3 mL solution for nebulization 3 ml inhalation QID PRN (Reason: shortness of breath or wheezing) 90 Days Qty: 270 3RF montelukast 10 mg tablet See Rx Instructions .ROUTE .COMPLEX Qty: 90 2RF Dose Instruction: TAKE 1 TABLET BY MOUTH EVERY EVENING FOR ALLERGIES Rx Instructions: TAKE 1 TABLET BY MOUTH EVERY EVENING FOR ALLERGIES levocetirizine 5 mg tablet 5 mg PO HS Linzess 145 mcg capsule 145 mcg PO PRN Patient Comments: TAKE ONE CAPSULE BY MOUTH EVERY DAY BEFORE breakfast desvenlafaxine succinate 25 mg tablet extended release 24 hr 25 mg PO doxycycline hyclate 100 mg tablet 100 mg PO BID Qty: 20 0RF Horizant 600 mg tablet extended release See Rx Instructions .ROUTE .COMPLEX Qty: 30 4RF Dose Instruction: TAKE 1 TABLET BY MOUTH AT BEDTIME NIGHTLY; ADMINISTER DAILY AT APPROXIMATELY 5 PM WITH FOOD/EVENING MEAL Rx Instructions: TAKE 1 TABLET BY MOUTH AT BEDTIME NIGHTLY; ADMINISTER DAILY AT APPROXIMATELY 5 PM WITH FOOD/EVENING MEAL tramadol 50 mg tablet 50 mg PO Q8H PRN (Reason: pain) Qty: 90 3RF desvenlafaxine succinate [Pristiq] 100 mg tablet extended release 24 hr 100 mg PO DAILY Qty: 30 2RF ondansetron HCl 4 mg tablet 4 mg PO Q8H PRN (Reason: nausea and vomiting) Qty: 20 0RF mirtazapine [Remeron] 15 mg tablet 7.5 - 15 mg PO HS Qty: 30 2RF azithromycin 500 mg tablet 500 mg PO DAILY 3 Days Qty: 3 0RF guaifenesin 400 mg tablet 400 mg PO Q4H PRN (Reason: cough) Qty: 60 0RF Referrals Follow up/Referrals: Dru Giles MD [Primary Care Provider] - See instructions Activity Restrictions/Add. Instructions Additional Instructions/Restrictions: Commend following up with her PCP and your magneto electrician soon as possible. Consider reevaluation in the ER if your symptoms worsen or you develop new symptoms. Clinical Impressions Clinical Impression: Fever Qualifiers: Fever type: unspecified Qualified Code(s): R50.9 - Fever, unspecified Print Language Print Language: Vietnamese Discharge ED Provider: Joe Foster General Adult HPI General Chief complaint: Fever Stated complaint: cough,fever Time Seen by Provider: 04/10/24 23:05 History of Present Illness HPI narrative: 59 with reported history of rheumatoid arthritis, lupus, obesity, continued fever. She reports that over the last month she has had near daily fevers over 100.6. She reports that she has been on 2 different courses of antibiotics including Levaquin and doxycycline and possibly also ciprofloxacin. She has been diagnosed with pneumonia and bronchitis and URIs. She reports that she is typically on methotrexate but has not taken it for at least the last month. She reports that she has a cough but otherwise denies any other symptoms. Denies any recent travel, denies any urinary symptoms, skin changes, weight loss weight gain nausea vomiting diarrhea shortness of breath etc. Related Data Home Medications ?Medication ?Instructions ?Recorded ?Confirmed methotrexate sodium 2.5 mg tablet 15 mg PO WEEKLY 08/09/22 04/06/24 levocetirizine 5 mg tablet 5 mg PO HS 02/17/24 04/06/24 linaclotide 145 mcg capsule 145 mcg PO PRN 02/17/24 04/06/24 (Linzess) desvenlafaxine succinate 25 mg 25 mg PO 03/31/24 04/06/24 tablet,extended release 24 hr Previous Rx's ?Medication ?Instructions ?Recorded metoclopramide HCl 5 mg tablet See Rx Instructions .Route 07/14/23 .COMPLEX #90 tabs ferrous sulfate 325 mg (65 mg See Rx Instructions .Route 10/13/23 iron) tablet,delayed release .COMPLEX #90 tabs folic acid 1 mg tablet 1 mg PO DAILY #90 tabs 10/13/23 meclizine 25 mg tablet 25 mg PO TID PRN dizziness #30 tabs 10/13/23 metoprolol tartrate 50 mg tablet 50 mg PO DAILY htn #180 tabs 10/13/23 pantoprazole 40 mg tablet,delayed 40 mg PO DAILY #90 tabs 10/13/23 release simvastatin 20 mg tablet 20 mg PO QPM High cholesterol #90 10/13/23 tabs valsartan 320 mg tablet 320 mg PO DAILY HTN #90 tabs 10/13/23 gabapentin enacarbil 600 mg See Rx Instructions .Route 02/09/24 tablet,extended release (Horizant .COMPLEX #30 tabs ER) tramadol 50 mg tablet 50 mg PO Q8H PRN pain #90 tabs 02/09/24 albuterol sulfate 90 mcg/actuation 2 inh inhalation Q6H PRN shortness 02/12/24 aerosol inhaler of breath or wheezing 90 days #8.5 grams dextromethorphan-guaifenesin ER 60 1 tab PO Q12H #60 tabs 02/12/24 mg-1,200 mg tab,extend release,12hr desvenlafaxine succinate 100 mg 100 mg PO DAILY #30 tabs 02/18/24 tablet,extended release 24 hr (Pristiq) ondansetron HCl 4 mg tablet 4 mg PO Q8H PRN nausea and 02/26/24 vomiting #20 tabs mirtazapine 15 mg tablet (Remeron) 7.5 - 15 mg (0.5 - 1 x 15 mg) PO 03/09/24 HS #30 tabs azelastine 137 mcg (0.1 %) nasal 2 spray intranasal HS 90 days #30 03/11/24 spray mL fluticasone furoate 200 1 inh inhalation DAILY 90 days #90 03/11/24 mcg-vilanterol 25 mcg/dose ea inhalation powder (Breo Ellipta) fluticasone propionate 50 See Rx Instructions .Route 03/11/24 mcg/actuation nasal .COMPLEX #16 grams spray,suspension ipratropium 0.5 mg-albuterol 3 mg 3 ml inhalation QID PRN shortness 03/11/24 (2.5 mg base)/3 mL nebulization of breath or wheezing 90 days #270 soln mL montelukast 10 mg tablet See Rx Instructions .Route 03/11/24 .COMPLEX #90 tabs guaifenesin 400 mg tablet 400 mg PO Q4H PRN cough #60 tabs 03/12/24 doxycycline hyclate 100 mg tablet 100 mg PO BID #20 tabs 03/31/24 azithromycin 500 mg tablet 500 mg PO DAILY 3 days #3 tabs 04/09/24 Allergies Allergy/AdvReac Type Severity Reaction Status Date / Time bee venom protein (honey bee) Allergy Severe Anaphylaxis Verified 04/06/24 15:39 shellfish derived Allergy Severe Hives Verified 04/06/24 15:39 wheat Allergy Severe Hives Verified 04/06/24 15:39 Yeast Allergy Severe Hives Verified 04/06/24 15:39 Pork/Porcine Containing Allergy Verified 04/06/24 15:39 Products food allergies Allergy Severe Hives Uncoded 04/06/24 15:39 DT (diphtheria toxoid - Allergy Unknown Uncoded 04/06/24 15:39 tetanus t01 DT (diphtheria toxoid - Allergy Unknown Uncoded 04/06/24 15:39 tetanus tox Dtap (Daptacel, Infanrix, Allergy Unknown Uncoded 04/06/24 15:39 Tripedia) DTap/Hib (TriHIBit) Allergy Unknown Uncoded 04/06/24 15:39 From Penicillin V Potassium Allergy Unknown Uncoded 04/06/24 15:39 Morphine Allergy Unknown Uncoded 04/06/24 15:39 Penicillin Allergy Unknown Uncoded 04/06/24 15:39 SULFA (sulfonamide) Allergy Unknown Uncoded 04/06/24 15:39 Sulfamethoxazole Allergy Unknown Uncoded 04/06/24 15:39 Td (Decavac) Allergy Unknown Uncoded 04/06/24 15:39 Tdap (Boostrix, Adacel) Allergy Unknown Uncoded 04/06/24 15:39 Tetanus Toxoid Allergy Unknown Uncoded 04/06/24 15:39 Trimethoprim Allergy Unknown Uncoded 04/06/24 15:39 PFS PFS Disclaimer: The information contained in this section may have been updated after the patient was seen, as this information can be updated by other users. Medical History Retracted ear drum Otalgia, left ear Eustachian tube dysfunction BROWN on CPAP Moderate BROWN with nocturnal hypoxemia resolved on CPAP at 12 cm, excellent compliance, no intolerance. Adjustment disorder with mixed anxiety and depressed mood Martin's health issues cause many emotions to surface as she is trying to cope/adjust to the way her life is, or will be. Most of Martin's concerns are for the care and welfare of her autistic son, if something negative should happen to her. MDD (major depressive disorder), recurrent, with melancholic features Martin shared that there are several things that she has to do differently, or give up altogether because her health issues will not allow her to do the things anymore. This has caused Martin to be sad, irritable, scared, depressed, and at times, hopeless. Generalized anxiety disorder with panic attacks Martin reported having Anxiety and Panic attacks as a little girl, and she was known as a worry-wart. Currently, her anxious symptoms have been worse since March 2020 when she became very sick and now has several serious illnesses. Lupus Ovarian cyst Moderate persistent asthma Allergic rhinitis Mild intermittent asthma History of seronegative inflammatory arthritis Inflammatory polyarthritis Wheezing Dyspnea on exertion Surgical History History of surgery on lower extremity History of cholecystectomy History of esophagogastroduodenoscopy (EGD) History of colonoscopy History of tonsillectomy Family History Other Heart attack Hypertension Stroke Social History Smoking Status: Never smoker alcohol intake: never substance use type: denies use current occupational status: disabled Travel in the last 8 weeks: None household members: other housing: apartment lives independently: Yes marital status: single number of children: 1 Have you lived/traveled outside [place] in past 30 days?: No Contact w/someone who lives/traveled outside [place] past 30 days?: No Exposure to someone with infectious disease in past 14 days?: No Do you have a fever (greater than 100.4 F or 38 C)?: Yes Have you tested positive for COVID-19: No Exposed to someone with COVID-19 in past 14 days?: No Do you have a sore throat?: Yes Do you have a cough?: Yes Do you have any weakness?: Yes Do you have any diarrhea?: No Are you experiencing any unusual bleeding?: No Do you have any muscle aches/pain?: No Do you have any abdominal pain?: No Are you experiencing loss of taste or smell?: No Other Medical History Have you received the Flu Vaccine for this season: No Have you received the Pneumonia Vaccine: Yes ROS Obtained: Yes All systems reviewed & no additional complaints except as documented Physical Exam General General appearance: alert and in no apparent distress Head Head exam: atraumatic and normocephalic Eye Eye exam: Present normal appearance, PERRL and EOMI ENT ENT exam: Present normal oropharynx and normal external ear exam Neck Neck exam: Present normal inspection and full ROM Chest Chest inspection: Present normal inspection and symmetric chest wall rise; Absent tenderness Respiratory Respiratory exam: Present normal lung sounds bilaterally; Absent respiratory distress Cardiovascular Cardiovascular exam: Present regular rate and normal rhythm Abdominal Exam Abdominal exam: Present soft; Absent distention, tenderness or guarding Extremities Exam Extremities exam: Present normal inspection; Absent edema or joint swelling Back Exam Back exam: Present normal inspection; Absent tenderness Neurological Exam Neurological exam: Present alert and oriented X3; Absent motor sensory deficit Psychiatric Psychiatric exam: Present normal affect and normal mood Skin Skin exam: Present warm, dry and normal color Lymphatic Lymphatic Findings: no adenopathy Medical Decision Making Medical Records Medical records reviewed: Yes I reviewed the patient's medical records. Screening: Per USPSTF and CDC recommendations, given the prevalence of disease in our region, it is our hospital?s policy to screen for HIV and viral Hepatitis for all patients aged 18 and over and those with ongoing risk factors. Magdi Inquiry Pt receiving controlled substance: No Magdi was queried for this patient: No Vital Signs: 04/10/24 23:04 04/10/24 23:30 04/10/24 23:34 Temperature 98.6 F Temperature Source Oral Oral Pulse Rate Pulse Rate [Right Radial] 90 Respiratory Rate 16 Blood Pressure 130/55 L Blood Pressure [Right Arm] 178/66 H Blood Pressure Mean [Right Arm] 103 Blood Pressure Source Blood Pressure Source [Right Arm] Automatic Cuff Blood Pressure Position Blood Pressure Position [Right Arm] Supine 02 Sat by Pulse Oximetry 96 100 Oxygen Delivery Method Room Air 04/11/24 00:01 04/11/24 00:16 04/11/24 01:57 Temperature 98.2 F Temperature Source Oral Pulse Rate 83 84 72 Pulse Rate [Right Radial] Respiratory Rate 16 Blood Pressure 147/70 H 153/78 H 128/72 Blood Pressure [Right Arm] Blood Pressure Mean [Right Arm] Blood Pressure Source Automatic Cuff Blood Pressure Source [Right Arm] Blood Pressure Position Supine Blood Pressure Position [Right Arm] 02 Sat by Pulse Oximetry 92 L 95 Oxygen Delivery Method Room Air Lab Data Lab results reviewed: Yes I reviewed the patient's lab results. Lab Results 04/10/24 23:30: WBC 8.8, RBC 3.85 L, Hgb 11.1 L, Hct 34.9 L, MCV 90.6, MCH 28.8, MCHC 31.8, RDW 13.9, Plt Count 109 L, MPV 10.9 H, Neut % (Auto) 67.4, Lymph % (Auto) 23.1, Keith % (Auto) 7.1, Eos % (Auto) 1.3, Baso % (Auto) 0.9, Neut # (Auto) 5.9, Lymph # (Auto) 2.0, Keith # (Auto) 0.6, Eos # (Auto) 0.1, Baso # (Auto) 0.1, Sodium 137, Potassium 4.8, Chloride 106, Carbon Dioxide 22, Anion Gap 13.8, BUN 16, Creatinine 0.80, Estimated Creat Clear 74, Estimated GFR 73, Est GFR ( Amer) 89, Glucose 577 H*, Calcium 8.6, Total Bilirubin 0.5, AST 56 H, ALT 32, Alkaline Phosphatase 317 H, C-Reactive Protein 20.4 H, Total Protein 7.0, Albumin 3.5, Globulin 3.5 H, Albumin/Globulin Ratio 1.0 L, TSH 1.18, Thyroxine (T4) 10.2, Chlamy pneumoniae PCR Not detected, Adenovirus (PCR) Not detected, B. pertussis DNA (PCR) Not detected, Coronavirus OC43 (PCR) Not detected, Coronavirus HKU1 (PCR) Not detected, Coronavirus 229E (PCR) Not detected, SARS-CoV-2 (PCR) Not detected, Coronavirus NL63 (PCR) Not detected, Human Metapneumovir PCR Not detected, Influenza A (H1) PCR Not detected, Influ A (H1N1/09) PCR Not detected, Influenza A (H3) PCR Not detected, Influenza Type A (PCR) Not detected, Influenza Type B (PCR) Not detected, M. pneumoniae (PCR) Not detected, Parainfluenza 1 (PCR) Not detected, Parainfluenza 2 (PCR) Not detected, Parainfluenza 3 (PCR) Not detected, Parainfluenza 4 (PCR) Not detected, RSV (PCR) Not detected, Entero/Rhino (PCR) Not detected 04/11/24 00:39: Urine Color Yellow, Urine Appearance Clear, Urine pH 6.0, Ur Specific [place] 1.015, Urine Protein Negative, Urine Glucose (UA) 3+, Urine Ketones Negative, Urine Blood Negative, Urine Nitrate Negative, Urine Bilirubin Negative, Urine Urobilinogen 1.0, Ur Leukocyte Esterase Negative, Urine RBC None, Urine WBC Occasional, Ur Squamous Epith Cells 3-5, Urine Bacteria None 04/10/24 23:30 04/10/24 23:30 Orders (Tests/Meds): ORDERS Category Date Time Status CBC w/Auto Diff [Complete Blood Count Auto Diff] Stat Lab 04/10/24 23:30 Completed CMP [Comprehensive Metabolic Panel] Stat Lab 04/10/24 23:30 Completed CRP [C-Reactive Protein] Stat Lab 04/10/24 23:30 Completed Full Resp Panel w/COVID ([facility]) Routine Lab 04/10/24 23:30 Completed T4 (Thyroxine) Stat Lab 04/10/24 23:30 Completed TSH [Thyroid Stimulating Hormone] Stat Lab 04/10/24 23:30 Completed UA [Urinalysis and Microscopic] Stat Lab 04/11/24 00:39 Completed Blood Culture Stat Micro 04/11/24 00:00 Received Medical Decision Narrative: 59-year-old female tree of lupus, RA, recent URI/pneumonia presents for persistent cough and fever for the last month. History was obtained via interactive discussion with patient, chart review. On arrival, patient is [afebrile, hemodynamically stable, satting appropriately, alert, oriented x4, GCS 15], moving all extremities spontaneously. Full physical exam performed and significant for clear lungs bilaterally, no abdominal tenderness, no skin changes Differential includes but is not limited to infection, chronic inflammatory condition, malignancy, thermometer air. Workup initiated including CBC CMP blood cultures UA urine culture TSH T4 chest x-ray full viral respiratory panel. On re-evaluation, patient [remains afebrile, HD stable.] Laboratory workup independently interpreted by me and significant for no significant leukocytosis, minimal thrombocytopenia, blood sugar markedly elevated at 570 (patient reports that she ate an ice cream immediately prior to arrival to the ER), no significant electrolyte derangement, minimally elevated CRP normal thyroid studies. Urine without evidence of infection. Full viral respiratory panel shows no detected isolates. Given patient history, exam and workup, patient's presentation most likely represents fever of unknown origin. Patient is afebrile here. No obvious bacterial infection on workup. It seems most likely to me that the patient's chronic inflammatory conditions including RA and lupus are likely the source of the patient's near daily fevers. During this visit I viewed the patient's chest x-ray from February and accidentally thought that it was the chest x-ray from today. There was no obvious bacterial pneumonia at that time. I intended to order a chest x-ray during this visit but I seem to have made a mistake and neglected to order the chest x-ray and accidentally reviewed her prior chest x-ray prior to discharge. I discussed the patient's presentation with her (after reviewing the incorrect x-ray) and elected to discharge the patient after shared decision made. I recommended that she follow-up with her PCP and magneto electrician for further assessment and return if she develops any new or worsening symptoms. After realizing my mistake, I called and left a voicemail encouraging her to return to the ER or to urgent care or her PCP for a chest x-ray for assessment. Procedures Risk/Benefits of Procedure(s) Were Explained: Yes Critical Care Critical Care Time Critical Care Time: No
[2024-04-10 23:34] VITALS: BP 130/55; O2SAT 100
[2024-04-10 23:37] LABS: Adenovirus,PCR Not Detected (NotDetected); Coronavirus 229E Not Detected (NotDetected); Coronavirus NL63 Not Detected (NotDetected); Coronavirus OC43 Not Detected (NotDetected); Coronovirus HKU1,PCR Not Detected (NotDetected); Human Metapneumovirus Not Detected (NotDetected); Influenza A, PCR Not Detected (NotDetected); Influenza AH1, 2009 Not Detected (NotDetected); Influenza AH1, PCR Not Detected (NotDetected); Influenza AH3,PCR Not Detected (NotDetected); Influenza B, PCR Not Detected (NotDetected); Parainfluenza 1, PCR Not Detected (NotDetected); Parainfluenza 2, PCR Not Detected (NotDetected); Parainfluenza 3, PCR Not Detected (NotDetected); Parainfluenza 4, PCR Not Detected (NotDetected); Rhinovirus/Enterovirus Not Detected (NotDetected)
[2024-04-10 23:38] LABS: Bordetella Pertussis Not Detected (NotDetected); Chlamydophila Pneumoniae, PCR Not Detected (NotDetected); Coronavirus 19, PCR Not Detected (NotDetected); Mycoplasma Pneumoniae, PCR Not Detected (NotDetected); Respiratory Syncytial Virus Not Detected (NotDetected)
[2024-04-10 23:40] LABS: Basophils # 0.1 K/mm3 (0-0.2); Basophils % 0.9 % (0.1-2.0); Eosinophils # 0.1 K/mm3 (0.0-0.4); Eosinophils % 1.3 % (0.1-12.0); Hematocrit 34.9 % (37.0-47.0); Hemoglobin 11.1 g/dL (12.2-16.2); Lymphocytes % 23.1 % (10-50); Mean Corpuscular HGB Conc 31.8 g/dL (31.8-35.4); Mean Corpuscular Hemoglobin 28.8 pg (27.0-31.2); Mean Corpuscular Volume 90.6 fl (81-99); Mean Platelet Volume 10.9 fl (7.4-10.4); Monocytes # 0.6 K/mm3 (0.1-1.0); Monocytes % 7.1 % (1.7-9.3); Neutrophils # 5.9 K/mm3 (1.8-7.8); Neutrophils % 67.4 % (37.0-80.0); Platelet Count 109 K/mm3 (142-424); Red Blood Count 3.85 M/mm3 (4.20-5.40); Red Cell Distribution Width 13.9 % (11.5-17.5); White Blood Count 8.8 K/mm3 (4.8-10.8)
[2024-04-10 23:49] LABS: Alanine Aminotransferase 32 U/L (12-78); Albumin Level 3.5 g/dl (3.5-5.0); Alkaline Phosphatase 317 U/L (38-126); Anion Gap 13.8 mEq/L (5-15); Aspartate Amino Transferase 56 U/L (14-36); Bilirubin,Total 0.5 mg/dl (0.2-1.3); Blood Urea Nitrogen 16 mg/dl (7-17); Calcium 8.6 mg/dl (8.4-10.2); Carbon Dioxide 22 mmol/L (22.0-30.0); Chloride 106 mmol/L (98-107); Creatinine Clearance Estimated 74 mL/min (50-200); Estimated Glomerular Filt Rate 73 ml/min (>60); GFR (African American) 89 ML/MIN (>60); Globulin 3.5 g/dL (1.3-3.2); Potassium 4.8 mmoL/L (3.5-5.1); Sodium 137 mmol/L (136-145)
[2024-04-10 23:51] LABS: Glucose 577 mg/dl (74-100)
[2024-04-10 23:54] LABS: C-Reactive Protein 20.4 mg/L (0-4)
[2024-04-11 00:01] VITALS: BP 147/70; PULSE 83; O2SAT 92
[2024-04-11 00:08] LABS: T4 (Thyroxine) 10.2 ug/dl (5.53-11.0)
[2024-04-11 00:16] VITALS: BP 153/78; PULSE 84; O2SAT 95
[2024-04-11 00:21] LABS: Thyroid Stimulating Hormone 1.18 uIU/mL (0.465-4.68)
[2024-04-11 00:42] LABS: Microscopic, Urine URINE MICROSCOPIC (MICROSCOPIC)
[2024-04-11 00:44] LABS: Appearance,Urine CLEAR (Clear); Bilirubin,Urine Negative (Negative); Blood, Urine Negative (Negative); Color,Urine YELLOW (Yellow); Glucose,Urine (UA) 3+ (Negative); Ketones,Urine Negative (Negative); Leukocyte Esterase,Urine Negative (Negative); Nitrate,Urine Negative (Negative); Protein,Urine Negative (Negative); Specific Gravity, Urine 1.015 (1.005-1.030)
[2024-04-11 00:55] LABS: WBC,Urine Occasional #/hpf (0-3)
[2024-04-11 01:57] VITALS: BP 128/72; PULSE 72; RESP 16; TEMP 36.8; O2SAT 98
== END 2024-04-11 02:04 | disposition home or self-care (01) ==
PROVIDERS: Emergency Provider Emergency Medicine; PCP Family Medicine
DX: R50.9 Fever, unspecified (principal); R05.9 Cough, unspecified
CPT/HCPCS: 80053; 81001; 84436; 84443; 85025; 86140; 87040; 87633; 99283

== ENCOUNTER 2024-05-06 12:44 | Outpatient (CLI) | payer MEDICARE, SELFPAY ==
--- NOTE | 2024-05-06 12:44 | MR_ITS ---
FINAL REPORT CLINICAL HISTORY: r/o acoustic neuroma. intermittent fever x1 year. failed hearing test on left side. frequent ear infections on left side COMPARISON: None FINDINGS: MRI BRAIN WITHOUT AND WITH CONTRAST, ATTENTION INTERNAL AUDITORY CANALS TECHNIQUE: Multiplanar imaging was performed of the brain with and without Gadolinium infusion. Study included thin section imaging through the internal auditory canals. Diffusion sequences show no signal abnormalities to indicate acute infarct or other process. Brain parenchyma displays normal signal without evidence of mass, hemorrhage or edema. There are a few tiny foci of white matter signal that likely represent changes of minimal ischemic microvascular disease, of doubtful significance. No extra-axial abnormal findings are seen. The ventricles and cisterns appear normal. No abnormal enhancing lesions are identified on the post infusion images. Thin section imaging through the posterior fossa shows a normal, symmetric appearance of the 7th and 8th cranial nerves. The internal auditory canals are symmetric. There is no mass or abnormal enhancement of the 8th cranial nerves or CP angle region. IMPRESSION: Minimal ischemic microvascular changes, of doubtful significance. Unremarkable MRI of the brain, without and with Gadolinium administration. Reviewed, Interpreted and Dictated by Murtaza Sharp MD Transcribed by Gilda Maciel Authenticated and [facility]
[2024-05-06] MEDS: GADOTERIDOL INJ 10ML SYRINGE 7 ML IV (14:04)
[2024-05-06] MEDS: GADOTERIDOL INJ 20ML SYRINGE 20 ML IV (14:04)
[2024-05-06] MEDS: SODIUM CHLORIDE 0.9% 10ML SYR (RAD ONLY) 10 ML IV (14:04)
== END 2024-05-06 23:59 | disposition home or self-care (01) ==
LOC: RAD 12:44
PROVIDERS: PCP Family Medicine; Visit Provider Student in an Organized Health Care Education/Training Program
DX: H69.93 Unspecified Eustachian tube disorder, bilateral (principal); H66.92 Otitis media, unspecified, left ear
CPT/HCPCS: 70553; A9576

== ENCOUNTER 2024-05-17 23:43 | Emergency (ER) | payer MEDICARE, SELFPAY ==
[2024-05-17 23:53] VITALS: BP 161/77; PULSE 104; RESP 18; RESP 20; TEMP 37.1; O2SAT 97; BMI 43.8
--- NOTE | 2024-05-17 23:56 | CT_ITS ---
PROCEDURE INFORMATION: Exam: CTA Chest With Contrast Exam date and time: 05/17/2024 11:39 PM Age: 59 years old Clinical indication: Cough and shortness of breath; Additional info: Cough SOA fevers, blastomycosis, immunocompromised TECHNIQUE: Imaging protocol: Computed tomographic angiography of the chest with contrast. Exam focused on the arteries. 3D rendering (Not supervised by radiologist): MIP and/or 3D reconstructed images were created by the technologist. Radiation optimization: All CT scans at this facility use at least one of these dose optimization techniques: automated exposure control; mA and/or kV adjustment per patient size (includes targeted exams where dose is matched to clinical indication); or iterative reconstruction. Contrast material: ISOVUE; Contrast volume: 70 ml; Contrast route: INTRAVENOUS (IV); COMPARISON: CR XR CHEST 2V 02/27/2024 8:09 PM FINDINGS: Pulmonary arteries: No acute pulmonary emboli. Aorta: Unremarkable. No aortic aneurysm. No aortic dissection. Lungs: Calcified granulomas in the posterior right lower lobe. Pleural spaces: Small-sized right pleural effusion with associated atelectasis. Heart: Unremarkable. No cardiomegaly. No pericardial effusion. Coronary arteries: Mild atherosclerotic disease of the left anterior descending coronary artery. Lymph nodes: Several small lymph nodes within the mediastinum, likely reactive, but nonspecific. Calcified right hilar lymph nodes, compatible with prior granulomatous disease. Liver: Nodular hepatic peripheral contour, suggesting cirrhosis. Gallbladder and biliary ducts: Gallbladder surgically absent. Intraperitoneal space: Small amount of free fluid within the visualized upper abdomen. Bones/joints: Unremarkable. No acute fracture. Soft tissues: Unremarkable. IMPRESSION: 1. No acute pulmonary emboli. 2. Small-sized right pleural effusion with associated atelectasis.
--- NOTE | 2024-05-18 00:10 | HMH.EDGENADL ---
Discharge Plan Disposition Patient Disposition: Home, Self-Care Condition: Good Prescriptions Prescriptions: No Action folic acid 1 mg tablet 1 mg PO DAILY Qty: 90 3RF meclizine 25 mg tablet 25 mg PO TID PRN (Reason: dizziness) Qty: 30 1RF metoprolol tartrate 50 mg tablet 50 mg PO DAILY Qty: 180 3RF pantoprazole 40 mg tablet,delayed release (DR/EC) 40 mg PO DAILY Qty: 90 3RF simvastatin 20 mg tablet 20 mg PO QPM Qty: 90 3RF valsartan 320 mg tablet 320 mg PO DAILY Qty: 90 3RF albuterol sulfate 90 mcg/actuation HFA aerosol inhaler 2 inh IH Q6H PRN (Reason: shortness of breath or wheezing) 90 Days Qty: 8.5 12RF lamotrigine [Lamictal] 25 mg tablet 25 mg PO DAILY Qty: 42 0RF Rx Instructions: Take 3 tablets daily. If you develop a rash or itching, stop the medication and call the clinic. methotrexate sodium 2.5 mg tablet 15 mg PO WEEKLY metoclopramide HCl 5 mg tablet See Rx Instructions .ROUTE .COMPLEX Qty: 90 2RF Dose Instruction: TAKE 1 TABLET BY MOUTH ONCE DAILY FOR GERD Rx Instructions: TAKE 1 TABLET BY MOUTH ONCE DAILY FOR GERD fluticasone furoate-vilanterol [Breo Ellipta] 200-25 mcg/dose blister with device 1 inh inhalation DAILY 90 Days Qty: 90 2RF fluticasone propionate 50 mcg/actuation spray,suspension See Rx Instructions .ROUTE .COMPLEX Qty: 16 1RF Dose Instruction: USE 2 SPRAYS IN EACH NOSTRIL ONCE DAILY Rx Instructions: USE 2 SPRAYS IN EACH NOSTRIL ONCE DAILY azelastine 137 mcg (0.1 %) spray,non-aerosol 2 spray intranasal HS 90 Days Qty: 30 2RF Rx Instructions: administer into each nostril ipratropium-albuterol 0.5 mg-3 mg(2.5 mg base)/3 mL solution for nebulization 3 ml inhalation QID PRN (Reason: shortness of breath or wheezing) 90 Days Qty: 270 3RF montelukast 10 mg tablet See Rx Instructions .ROUTE .COMPLEX Qty: 90 2RF Dose Instruction: TAKE 1 TABLET BY MOUTH EVERY EVENING FOR ALLERGIES Rx Instructions: TAKE 1 TABLET BY MOUTH EVERY EVENING FOR ALLERGIES levocetirizine 5 mg tablet 5 mg PO HS Linzess 145 mcg capsule 145 mcg PO DIRECTED PRN (Reason: Constipation) Patient Comments: TAKE ONE CAPSULE BY MOUTH EVERY DAY BEFORE breakfast tramadol 50 mg tablet 50 mg PO Q8H PRN (Reason: pain) Qty: 90 3RF ondansetron HCl 4 mg tablet 4 mg PO Q8H PRN (Reason: nausea and vomiting) Qty: 20 0RF mirtazapine [Remeron] 15 mg tablet 22.5 mg PO HS Qty: 45 2RF Horizant 600 mg tablet extended release 600 mg PO DAILY Qty: 30 5RF Rx Instructions: 600 mg at 5 PM desvenlafaxine succinate 25 mg tablet extended release 24 hr 25 mg PO .QD Qty: 30 2RF desvenlafaxine succinate [Pristiq] 100 mg tablet extended release 24 hr 100 mg PO DAILY Qty: 30 2RF Referrals Follow up/Referrals: Dru Giles MD [Primary Care Provider] - See instructions Activity Restrictions/Add. Instructions Additional Instructions/Restrictions: You were evaluated in the ER and are believed to be appropriate for discharge at this time. Continue taking all your home medications as previously prescribed. Go to your appointments as scheduled with infectious disease and rheumatology, call to see if any of these appointments can be moved up and made sooner. Continue monitoring your fever and other symptoms. Please return to the ER with any new, worsening, or otherwise concerning symptoms. Clinical Impressions Clinical Impression: Fever of unknown origin Print Language Print Language: [place] Citizen Discharge ED Provider: Nona Huntley General Adult HPI General Chief complaint: Fever Stated complaint: fever, sweats Time Seen by Provider: 05/17/24 23:45 Mode of Arrival: Ambulatory Source of Information: Patient Description of Symptoms (Recalled from ER Triage Doc. by RN): pt presents with reports of consistent fevers since mid apr with HX of autoimmue disorders. Pt reports to being told to come to ED tonight per PCP for increasing fever and cough. History of Present Illness HPI narrative: 59-year-old female presents to the ER complaining of fevers. She is also having cough. Patient reports having an autoimmune disorders and blastomycosis. She currently is on methotrexate. She states she is not on any antifungals and my review of records at [facility] including with pulmonology indicates she is supposed to follow-up with infectious disease at in May. Patient reports in the last 4 months she has had episodes of cough, congestion, shortness of breath. She states she has also been having episodes of fevers at night. She states she had them in March and then they went away, they started again in mid April approximately 3 weeks ago and she reports every night since that time she has had temperature 100.4 or higher. She reports she spoke with her PCP niko regarding her fever because it was above 101 and he had recommended that if her fever continued to go to the ER. She reports the PCP did not have a specific concern or recommendation beyond being evaluated in the ER. She reports no other associated symptoms and is reportedly compliant with all her home medications. Further review of records demonstrates she does have asthma on multiple medications, high blood pressure, she also has chronic pain and is on controlled substances for this. Patient reports they do not like steroids in me allegedly because of her autoimmune disorders. Related Data Home Medications ?Medication ?Instructions ?Recorded ?Confirmed methotrexate sodium 2.5 mg tablet 15 mg PO WEEKLY 08/09/22 05/18/24 levocetirizine 5 mg tablet 5 mg PO HS 02/17/24 05/18/24 linaclotide 145 mcg capsule 145 mcg PO DIRECTED PRN 02/17/24 05/18/24 (Linzesrocky) Constipation Previous Rx's ?Medication ?Instructions ?Recorded metoclopramide HCl 5 mg tablet See Rx Instructions .Route 07/14/23 .COMPLEX #90 tabs folic acid 1 mg tablet 1 mg PO DAILY #90 tabs 10/13/23 meclizine 25 mg tablet 25 mg PO TID PRN dizziness #30 tabs 10/13/23 metoprolol tartrate 50 mg tablet 50 mg PO DAILY htn #180 tabs 10/13/23 pantoprazole 40 mg tablet,delayed 40 mg PO DAILY #90 tabs 10/13/23 release simvastatin 20 mg tablet 20 mg PO QPM High cholesterol #90 10/13/23 tabs valsartan 320 mg tablet 320 mg PO DAILY HTN #90 tabs 10/13/23 tramadol 50 mg tablet 50 mg PO Q8H PRN pain #90 tabs 02/09/24 albuterol sulfate 90 mcg/actuation 2 inh inhalation Q6H PRN shortness 02/12/24 aerosol inhaler of breath or wheezing 90 days #8.5 grams ondansetron HCl 4 mg tablet 4 mg PO Q8H PRN nausea and 02/26/24 vomiting #20 tabs azelastine 137 mcg (0.1 %) nasal 2 spray intranasal HS 90 days #30 03/11/24 spray mL fluticasone furoate 200 1 inh inhalation DAILY 90 days #90 03/11/24 mcg-vilanterol 25 mcg/dose ea inhalation powder (Breo Ellipta) fluticasone propionate 50 See Rx Instructions .Route 03/11/24 mcg/actuation nasal .COMPLEX #16 grams spray,suspension ipratropium 0.5 mg-albuterol 3 mg 3 ml inhalation QID PRN shortness 03/11/24 (2.5 mg base)/3 mL nebulization of breath or wheezing 90 days #270 soln mL montelukast 10 mg tablet See Rx Instructions .Route 03/11/24 .COMPLEX #90 tabs gabapentin enacarbil 600 mg 600 mg PO DAILY RLS #30 tabs 05/13/24 tablet,extended release (Horizant ER) mirtazapine 15 mg tablet (Remeron) 22.5 mg (1.5 x 15 mg) PO HS #45 05/13/24 tabs desvenlafaxine succinate 100 mg 100 mg PO DAILY #30 tabs 05/16/24 tablet,extended release 24 hr (Pristiq) desvenlafaxine succinate 25 mg 25 mg PO .QD #30 tabs 05/16/24 tablet,extended release 24 hr lamotrigine 25 mg tablet (Lamictal) 25 mg PO DAILY #42 tabs 05/17/24 Allergies Allergy/AdvReac Type Severity Reaction Status Date / Time bee venom protein (honey bee) Allergy Severe Anaphylaxis Verified 05/17/24 09:41 shellfish derived Allergy Severe Hives Verified 05/17/24 09:41 wheat Allergy Severe Hives Verified 05/17/24 09:41 Yeast Allergy Severe Hives Verified 05/17/24 09:41 Pork/Porcine Containing Allergy Verified 05/17/24 09:41 Products food allergies Allergy Severe Hives Uncoded 05/17/24 09:41 DT (diphtheria toxoid - Allergy Unknown Uncoded 05/17/24 09:41 tetanus t01 DT (diphtheria toxoid - Allergy Unknown Uncoded 05/17/24 09:41 tetanus tox Dtap (Daptacel, Infanrix, Allergy Unknown Uncoded 05/17/24 09:41 Tripedia) DTap/Hib (TriHIBit) Allergy Unknown Uncoded 05/17/24 09:41 From Penicillin V Potassium Allergy Unknown Uncoded 05/17/24 09:41 Morphine Allergy Unknown Uncoded 05/17/24 09:41 Penicillin Allergy Unknown Uncoded 05/17/24 09:41 SULFA (sulfonamide) Allergy Unknown Uncoded 05/17/24 09:41 Sulfamethoxazole Allergy Unknown Uncoded 05/17/24 09:41 Td (Decavac) Allergy Unknown Uncoded 05/17/24 09:41 Tdap (Boostrix, Adacel) Allergy Unknown Uncoded 05/17/24 09:41 Tetanus Toxoid Allergy Unknown Uncoded 05/17/24 09:41 Trimethoprim Allergy Unknown Uncoded 05/17/24 09:41 [facility] Disclaimer: The information contained in this section may have been updated after the patient was seen, as this information can be updated by other users. Medical History Retracted ear drum Otalgia, left ear Eustachian tube dysfunction BROWN on CPAP Moderate BROWN with nocturnal hypoxemia resolved on CPAP at 12 cm, excellent compliance, no intolerance. Adjustment disorder with mixed anxiety and depressed mood Martin's health issues cause many emotions to surface as she is trying to cope/adjust to the way her life is, or will be. Most of Martin's concerns are for the care and welfare of her autistic son, if something negative should happen to her. MDD (major depressive disorder), recurrent, with melancholic features Martin shared that there are several things that she has to do differently, or give up altogether because her health issues will not allow her to do the things anymore. This has caused Martin to be sad, irritable, scared, depressed, and at times, hopeless. Generalized anxiety disorder with panic attacks Martin reported having Anxiety and Panic attacks as a little girl, and she was known as a worry-wart. Currently, her anxious symptoms have been worse since March 2020 when she became very sick and now has several serious illnesses. Lupus Ovarian cyst Moderate persistent asthma Allergic rhinitis Mild intermittent asthma History of seronegative inflammatory arthritis Inflammatory polyarthritis Wheezing Dyspnea on exertion Surgical History History of surgery on lower extremity History of cholecystectomy History of esophagogastroduodenoscopy (EGD) History of colonoscopy History of tonsillectomy Family History Other Heart attack Hypertension Stroke Social History Smoking Status: Never smoker alcohol intake: never substance use type: denies use current occupational status: disabled Travel in the last 8 weeks: None household members: other housing: apartment lives independently: Yes marital status: single number of children: 1 Have you lived/traveled outside [place] in past 30 days?: No Contact w/someone who lives/traveled outside US past 30 days?: No Exposure to someone with infectious disease in past 14 days?: No Do you have a fever (greater than 100.4 F or 38 C)?: No Have you tested positive for COVID-19: No Exposed to someone with COVID-19 in past 14 days?: No Do you have a sore throat?: No Do you have a cough?: No Do you have any weakness?: No Do you have any diarrhea?: No Are you experiencing any unusual bleeding?: No Do you have any muscle aches/pain?: No Do you have any abdominal pain?: No Are you experiencing loss of taste or smell?: No Other Medical History Have you received the Flu Vaccine for this season: No Have you received the Pneumonia Vaccine: Yes ROS Obtained: Yes Systems reviewed as appropriate & no additional complaints except as documented Per HPI Physical Exam General General appearance: alert, in no apparent distress and obese Head Head exam: atraumatic and normocephalic Eye Eye exam: Present PERRL and EOMI ENT ENT exam: Present mucous membranes moist Neck Neck exam: Present normal inspection and full ROM Chest Chest inspection: Present symmetric chest wall rise Respiratory Respiratory exam: Present normal lung sounds bilaterally; Absent respiratory distress, wheezes or stridor Cardiovascular Cardiovascular exam: Present normal rhythm and tachycardia (Heart rate 100-105 during exam) Abdominal Exam Abdominal exam: Present soft; Absent distention or tenderness Extremities Exam Extremities exam: Present full ROM Neurological Exam Neurological exam: Present alert and oriented X3; Absent motor sensory deficit Psychiatric Psychiatric exam: Present normal affect and normal mood Skin Skin exam: Present warm and dry Medical Decision Making Medical Records Medical records reviewed: Yes I reviewed the patient's medical records. Screening: Per USPSTF and CDC recommendations, given the prevalence of disease in our region, it is our hospital?s policy to screen for HIV and viral Hepatitis for all patients aged 18 and over and those with ongoing risk factors. MR Comment: view of recent records at demonstrate patient is supposed to follow-up with infectious disease for Blastomyces. She also had an ultrasound to evaluate possible lesion on the liver but this was not well-appreciated so MRI is ordered. Reviewed progress note from rheumatology at on April 19, 2024 demonstrates patient has a history of inflammatory arthritis with a positive KAMERON but did not meet criteria for SLE. She reported at that time having fever for almost the last 3 months every night with fevers up to 102 ?F. Their note demonstrates she was evaluated in the ER and excluded from having any active infection. 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 They ordered TB QuantiFERON, hepatitis B and C, and fungal serology. Review of labs demonstrates patient had negative QuantiFERON, negative hepatitis B and C, elevated Blastomyces antibody by EIA, SER which per results suggests past or current infection, however her level falls into the equivocal category. It appears that her upcoming infectious disease appointment at is on May 27. Magdi Inquiry Pt receiving controlled substance: No Vital Signs: 05/17/24 23:53 05/17/24 23:53 05/17/24 23:58 Temperature 98.8 F 98.8 F Temperature Source Oral Oral Oral Pulse Rate 104 H Pulse Rate [Radial] 104 H Respiratory Rate 20 18 Blood Pressure 161/77 H Blood Pressure [Left Arm] 161/77 H Blood Pressure Mean [Left Arm] 105 Blood Pressure Position Sitting Blood Pressure Position [Left Arm] Sitting 02 Sat by Pulse Oximetry 97 97 Oxygen Delivery Method Room Air Room Air 05/18/24 01:00 Temperature Temperature Source Pulse Rate 90 Pulse Rate [Radial] Respiratory Rate Blood Pressure 143/88 H Blood Pressure [Left Arm] Blood Pressure Mean [Left Arm] Blood Pressure Position Blood Pressure Position [Left Arm] 02 Sat by Pulse Oximetry 95 Oxygen Delivery Method Lab Data Lab Results 05/18/24 00:00: WBC 10.8, RBC 3.44 L, Hgb 9.9 L, Hct 31.5 L, MCV 91.6, MCH 28.8, MCHC 31.4 L, RDW 16.6, Plt Count 172, MPV 10.0, Neut % (Auto) 65.3, Lymph % (Auto) 26.3, [place] % (Auto) 3.6, Eos % (Auto) 3.2, Baso % (Auto) 1.1, Neut # (Auto) 7.0, Lymph # (Auto) 2.8, [place] # (Auto) 0.4, Eos # (Auto) 0.3, Baso # (Auto) 0.1, ESR 130 H, PT 11.6, INR 1.06, Sodium 139, Potassium 3.7, Chloride 110 H, Carbon Dioxide 23, Anion Gap 9.7, BUN 11, Creatinine 0.80, Estimated Creat Clear 74, Estimated GFR 73, Est GFR ( Amer) 89, Glucose 113 H, Lactate 3.4 H, Calcium 8.4, Total Bilirubin 0.8, AST 58 H, ALT 31, Alkaline Phosphatase 211 H, Troponin I 0.02, C-Reactive Protein 39.2 H, NT-Pro-B Natriuret Pep 131 H, Total Protein 7.3, Albumin 3.6, Globulin 3.7 H, Albumin/Globulin Ratio 1.0 L 05/18/24 00:02: Chlamy pneumoniae PCR Not detected, Adenovirus (PCR) Not detected, B. pertussis DNA (PCR) Not detected, Coronavirus OC43 (PCR) Not detected, Coronavirus HKU1 (PCR) Not detected, Coronavirus 229E (PCR) Not detected, SARS-CoV-2 (PCR) Not detected, Coronavirus NL63 (PCR) Not detected, Human Metapneumovir PCR Not detected, Influenza A (H1) PCR Not detected, Influ A (H1N1/09) PCR Not detected, Influenza A (H3) PCR Not detected, Influenza Type A (PCR) Not detected, Influenza Type B (PCR) Not detected, M. pneumoniae (PCR) Not detected, Parainfluenza 1 (PCR) Not detected, Parainfluenza 2 (PCR) Not detected, Parainfluenza 3 (PCR) Not detected, Parainfluenza 4 (PCR) Not detected, RSV (PCR) Not detected, Entero/Rhino (PCR) Not detected 05/18/24 00:05: VBG pH 7.44 H, VBG pCO2 28.2 L, VBG pO2 135.6 H, VBG HCO3 18.6 L, VBG Total CO2 19.5 L, VBG O2 Saturation 98.9 H, VBG Base Excess -5.5 L, VBG Lactic Acid 2.6 H 05/18/24 00:30: Urine Color Yellow, Urine Appearance Clear, Urine pH 6.5, Ur Specific [place] 1.010, Urine Protein Negative, Urine Glucose (UA) Negative, Urine Ketones Negative, Urine Blood Negative, Urine Nitrate Negative, Urine Bilirubin Negative, Urine Urobilinogen 1.0, Ur Leukocyte Esterase Trace A, Urine WBC 5-10, Ur Squamous Epith Cells 5-10, Urine Bacteria 2+ 05/18/24 02:49: Troponin I 0.02 05/18/24 00:00 05/18/24 00:00 Orders (Tests/Meds): ED MEDICATIONS Discontinued Medications Generic Name Dose Route Start Last Admin Trade Name Freq PRN Reason Stop Dose Admin Lactated Ringer's 1,000 mls @ 999 mls/hr 05/18/24 01:12 05/18/24 01:16 Lactated Ringer's 1000 Ml Bag IV 05/18/24 02:12 999 mls/hr .Q1H1M ONE Administration Iopamidol 70 ml 05/18/24 00:43 05/18/24 00:45 Iopamidol-370 (76%);100ml Bottle IV 05/18/24 00:44 70 ml ONCE ONE Administration Sodium Chloride 50 ml 05/18/24 00:43 05/18/24 00:45 0.9 % Sodium Chloride 50 Ml Vial IV 05/18/24 00:44 50 ml ONCE ONE Administration Sodium Chloride 10 ml 05/18/24 00:43 05/18/24 00:45 Sodium Chloride 0.9% 10ml Syr (Rad Only) IV 05/18/24 00:44 10 ml ONCE ONE Administration ORDERS Category Date Time Status CT angio chest PE protocol Stat Cat Scan 05/17/24 23:56 Completed POCUS Point of Care (ER Only) Stat Exams 05/18/24 00:26 Completed BNP [NT Pro Brain Natriuretic Pep.] Stat Lab 05/18/24 00:00 Completed CBC w/Auto Diff [Complete Blood Count Auto Diff] Stat Lab 05/17/24 23:56 Completed CMP [Comprehensive Metabolic Panel] Stat Lab 05/17/24 23:56 Completed CRP [C-Reactive Protein] Stat Lab 05/18/24 00:00 Completed ESR [Erythrocyte Sedimentation Rate] Stat Lab 05/18/24 00:00 Completed Full Resp Panel w/COVID ([facility]) Routine Lab 05/18/24 00:02 Completed Lactic Acid Stat Lab 05/18/24 00:00 Completed PT INR [Prothrombin Time INR] Stat Lab 05/17/24 23:56 Completed Trop I [Troponin I] Stat Lab 05/18/24 00:00 Completed Troponin I Q3H Lab 05/18/24 02:49 Completed Troponin I Q3H Lab 05/18/24 06:15 Ordered Urinalysis and Microscopic Stat Lab 05/18/24 00:30 Completed Blood Culture Stat Micro 05/18/24 00:26 Received Urine Culture Stat Micro 05/18/24 00:30 Received VBG [Venous Blood Gas] Stat RT 05/18/24 00:05 Completed Medical Decision Narrative: In summary, this 59-year-old female with comorbidities described in the HPI which increase the amount of data to be reviewed as well as her overall morbidity presents to the emergency department today with concerns of fever. On initial evaluation patient is hemodynamically stable, afebrile, she was slightly tachycardic during my initial exam but had just ambulated into the ER. Her heart rate spontaneously resolved and is currently in the 80s. Her cardiopulmonary exam is benign and she is saturating well on room air with no adventitious sounds, there is no peripheral edema or swelling, exam otherwise benign. Differential diagnosis includes but is not limited to viral syndrome, autoimmune disorder, with her reported history of Blastomyces despite the equivocal findings of her antibodies at , it is possible that she has chronic or acute Blastomyces pneumonia, she could also have other bacterial pneumonia, with her history of autoimmune disorder she may have coagulopathy which could increase her risk of PE which is being considered, also considered bacteremia, endocarditis, septic emboli, among others. Based on these concerns, I ordered serum labs including inflammatory markers, cardiac workup, CT imaging of the chest, [id number] ultrasound. ECG personally interpreted demonstrates normal sinus rhythm, rate 91, normal axis, normal ID and QTc, no STEMI. Additional review of records demonstrates patient was evaluated in our ER at the beginning of March for the same complaints of daily fevers and cough despite being on multiple courses of antibiotics recently. Her workup in the ER at that time was reassuring and she was discharged without any further intervention and recommended to follow-up with her rheumatology team. She had negative viral panel at that time. Labs personally reviewed demonstrate no leukocytosis, anemia with hemoglobin 9.9 down from 11.1 over a month ago, patient has no known source of bleeding, platelets normal and improved from prior, ESR elevated at 130 which is nonspecific and nonactionable at this time and could be related to her chronic underlying diseases including autoimmune disorders, PT/INR normal, VBG with pH 7.44, pCO2 low at 28.2, bicarb low at 18.6, lactic elevated at 2.6, lactic on chemistry was elevated at 3.4. With these findings patient is receiving IV fluids. I do not believe she is toxically ill and I am suspicious that her lactic is likely chronically elevated given her multiple chronic problems. Her BUN and creatinine are normal, liver enzymes slightly abnormal but improved from previous, initial troponin 0.02, repeat troponin pending, CRP is elevated at 39.2 which is also nonspecific and not independently actionable. UA has trace leukocyte esterase as well as some WBCs and bacteria but is contaminated with numerous squamous cells, since patient is nitrate negative and has no urinary symptoms, will not treat for UTI at this time. CTA PE personally turbid it does not demonstrate PE, lobar infiltrate, or obvious pulmonary lesion, radiology reads are pending and currently significantly delayed. [id number] ultrasound personally performed and interpreted is reassuring and does not demonstrate findings of vegetations on the valves, no pericardial effusion, good cardiac function appreciated. Patient was placed into ED observation at 0110 for continued monitoring, serial troponin to rule out evolving ID and preclude unnecessary admission, as well as to await the results of CTA PE. Patient remained on the campus monitor and was frequently reassessed. She remains hemodynamically stable, afebrile, vitals continue to be reassuring and she is saturating well on room air with no changes in respiratory status. CTA PE resulted and radiology read does follow very small pleural effusion on the right as well as evidence of calcified granulomas, but no evidence of active infection or other acute abnormalities. See radiology read for full interpretation. Repeat troponin unchanged at 0.02. Given patient's duration of symptoms I have low suspicion for cardiac aneurysm and reassured by her unchanging troponin. Patient has close follow-up scheduled with infectious disease at as well as follow-up with rheumatology. I instructed her to call and try to move up her appointments with both ID and rheumatology for close reevaluation. Since her symptoms have been persistent and relatively unchanged for months and there is good documentation that she has had fevers intermittently during this time with reassuring workups previously and tonight, I believe she is appropriate for discharge without further intervention at this time. Patient was given instructions on symptomatic monitoring and management, follow up instructions, and strict return precautions for the emergency department. Patient indicated understanding and was discharged in stable condition. Total time in ED observation: 2 hours 10 minutes Procedures Miscellaneous Procedure Procedure Performed: Limited Cardiac Ultrasound Indication: Shortness of breath Identified cardiac views: [-Cardiac parasternal long axis] [-Cardiac parasternal short axis] [-Cardiac apical four-chamber] [-Cardiac subxiphoid] -this view was severely limited secondary to body habitus Findings: Cardiac activity present with no gross wall motion abnormality, no pericardial effusion, no right heart strain, no vegetations appreciated on the valves Impression: -Cardiac activity present with no gross wall motion abnormality, no pericardial effusion, no right heart strain, no vegetations appreciated on the valves Images were saved to permanent archive The study was technically adequate CPT: 35543 This study was performed by me, and I personally interpreted all images/videos. Based on my clinical judgement, these images were adequate and did not necessitate further imaging. Critical Care Critical Care Time Critical Care Time: No
[2024-05-18 00:11] LABS: Adenovirus,PCR Not Detected (NotDetected); Bordetella Pertussis Not Detected (NotDetected); Chlamydophila Pneumoniae, PCR Not Detected (NotDetected); Coronavirus 19, PCR Not Detected (NotDetected); Coronavirus 229E Not Detected (NotDetected); Coronavirus NL63 Not Detected (NotDetected); Coronavirus OC43 Not Detected (NotDetected); Coronovirus HKU1,PCR Not Detected (NotDetected); Human Metapneumovirus Not Detected (NotDetected); Influenza A, PCR Not Detected (NotDetected); Influenza AH1, 2009 Not Detected (NotDetected); Influenza AH1, PCR Not Detected (NotDetected); Influenza AH3,PCR Not Detected (NotDetected); Influenza B, PCR Not Detected (NotDetected); Mycoplasma Pneumoniae, PCR Not Detected (NotDetected); Parainfluenza 1, PCR Not Detected (NotDetected); Parainfluenza 2, PCR Not Detected (NotDetected); Parainfluenza 3, PCR Not Detected (NotDetected); Parainfluenza 4, PCR Not Detected (NotDetected); Respiratory Syncytial Virus Not Detected (NotDetected); Rhinovirus/Enterovirus Not Detected (NotDetected)
--- NOTE | 2024-05-18 00:11 | ECG_ITS ---
APPROVED REPORT Exam: Resting ECG HR:91 bpm ECG Measurements Heart Rate 91 AXES PA 143 P 68 QRSd 90 QRS 80 QT 368 T 56 QTc 417 Conclusion SINUS RHYTHM MINIMAL ST DEPRESSION [0.025+ mV ST DEPRESSION] No STEMI Electronically signed by : JACKELINE ARAIZA, 05/18/2024 04:53:55
[2024-05-18 00:12] LABS: Albumin Level 3.6 g/dl (3.5-5.0); Chloride 110 mmol/L (98-107)
[2024-05-18 00:13] LABS: Potassium 3.7 mmoL/L (3.5-5.1); Sodium 139 mmol/L (136-145)
[2024-05-18 00:15] LABS: Alanine Aminotransferase 31 U/L (12-78); Anion Gap 9.7 mEq/L (5-15); Aspartate Amino Transferase 58 U/L (14-36); Basophils # 0.1 K/mm3 (0-0.2); Basophils % 1.1 % (0.1-2.0); Blood Urea Nitrogen 11 mg/dl (7-17); Carbon Dioxide 23 mmol/L (22.0-30.0); Creatinine Clearance Estimated 74 mL/min (50-200); Eosinophils # 0.3 K/mm3 (0.0-0.4); Eosinophils % 3.2 % (0.1-12.0); Estimated Glomerular Filt Rate 73 ml/min (>60); GFR (African American) 89 ML/MIN (>60); Hematocrit 31.5 % (37.0-47.0); Hemoglobin 9.9 g/dL (12.2-16.2); Lymphocytes # 2.8 K/mm3 (0.7-4.5); Lymphocytes % 26.3 % (10-50); Mean Corpuscular HGB Conc 31.4 g/dL (31.8-35.4); Mean Corpuscular Hemoglobin 28.8 pg (27.0-31.2); Mean Corpuscular Volume 91.6 fl (81-99); Monocytes # 0.4 K/mm3 (0.1-1.0); Monocytes % 3.6 % (1.7-9.3); Neutrophils % 65.3 % (37.0-80.0); Platelet Count 172 K/mm3 (142-424); Red Blood Count 3.44 M/mm3 (4.20-5.40); Red Cell Distribution Width 16.6 % (11.5-17.5); White Blood Count 10.8 K/mm3 (4.8-10.8)
[2024-05-18 00:16] LABS: Alkaline Phosphatase 211 U/L (38-126); Bilirubin,Total 0.8 mg/dl (0.2-1.3); Calcium 8.4 mg/dl (8.4-10.2); Globulin 3.7 g/dL (1.3-3.2); Glucose 113 mg/dl (74-100); Total Protein,Serum 7.3 g/dl (6.3-8.2)
[2024-05-18 00:21] LABS: C-Reactive Protein 39.2 mg/L (0-4)
[2024-05-18 00:27] LABS: VBG Base Excess -5.5 mmol/L (-2.4-2.3); VBG HCO3 18.6 mmol/L (23-30); VBG Oxygen Saturation 98.9 % (50-70); VBG PCO2 28.2 mmol/L (35-51); VBG PH 7.44 mmol/L (7.31-7.41); VBG PO2 135.6 mmol/L (28-40); VBG Total CO2 19.5 mmol/L (23-27)
[2024-05-18 00:30] LABS: INR 1.06 (0.9-1.1); Prothrombin Time 11.6 seconds (9.2-12.1); Troponin I 0.02 ng/ml (0.00-0.034)
--- NOTE | 2024-05-18 00:30 | PC.NURSE ---
pt ambulatory with slow steady gait to restroom to attempt to provide urine for testing
[2024-05-18 00:31] LABS: Lactate Venous 2.6 mmol/L (0.4-2.0)
[2024-05-18 00:38] LABS: Microscopic, Urine URINE MICROSCOPIC (MICROSCOPIC)
[2024-05-18] MEDS: IOPAMIDOL-370 (76%);100ML BOTTLE 70 ML IV (00:45)
[2024-05-18] MEDS: 0.9 % SODIUM CHLORIDE 50 ML VIAL IV (00:45)
[2024-05-18] MEDS: SODIUM CHLORIDE 0.9% 10ML SYR (RAD ONLY) 10 ML IV (00:45)
[2024-05-18 01:00] VITALS: BP 143/88; PULSE 90; O2SAT 95
[2024-05-18 01:01] LABS: Lactic Acid 3.4 mmol/L (0.7-2.1)
[2024-05-18 01:02] LABS: Appearance,Urine Clear (Clear); Bilirubin,Urine Negative (Negative); Blood, Urine Negative (Negative); Color,Urine Yellow (Yellow); Glucose,Urine (UA) Negative (Negative); Ketones,Urine Negative (Negative); Leukocyte Esterase,Urine Trace (Negative); Nitrate,Urine Negative (Negative); PH,Urine 6.5 (5.0-8.5); Protein,Urine Negative (Negative)
[2024-05-18 01:05] LABS: Erythrocyte Sedimentation Rate 130 mm/hr (0-30)
[2024-05-18 01:07] LABS: Bacteria,Urine 2+ /lpf
[2024-05-18] MEDS: LACTATED RINGERS 1000ML 1,000 ML 999 ML IV (01:16)
--- NOTE | 2024-05-18 01:20 | PC.NURSE ---
pt resting in bed, NAD noted, rr even and non labored, skin pwd, blanket and lights dimmed for pt comfort.
[2024-05-18 01:26] LABS: NT Pro Brain Natriuretic Pep. 131 pg/mL (0-125)
--- NOTE | 2024-05-18 02:50 | PC.NURSE ---
delta trop drawn and sent to the lab pt ambulates with slow steady gait to restroom
--- NOTE | 2024-05-18 02:53 | PC.NURSE ---
pt returned to assigned room at this time
[2024-05-18 03:17] LABS: Troponin I 0.02 ng/ml (0.00-0.034)
[2024-05-18 03:33] VITALS: BP 162/82; PULSE 81; RESP 14; TEMP 37.1; O2SAT 94
--- NOTE | 2024-05-19 14:39 | PC.NURSE ---
URINE CULTURE DISCUSSED WITH DR REEVES, SPOKE WITH PT STATES SHE CAN TAKE CEFDINIR. RX FOR CEFDINIR 300MG PO BID CALLED IN TO [facility] MESSAGE LEFT FOR PT THAT RX CALLED IN
--- NOTE | 2024-05-21 08:52 | PC.NURSE ---
URINE CULTURE DISCUSSED WITH DR CRUZ, NO NEW ORDERS
== END 2024-05-18 03:35 | disposition home or self-care (01) ==
PROVIDERS: Emergency Provider Emergency Medicine; PCP Family Medicine
DX: R50.9 Fever, unspecified (principal)
CPT/HCPCS: 71275; 80053; 81001; 82803; 83605; 83880; 84484; 85025; 85610; 85651; 86140; 87040; 87086; 87088; 87186; 87633; 93005; 96360; 99285; J7120; Q9967

== ENCOUNTER 2024-06-11 11:59 | Outpatient (CLI) | payer MEDICARE, MEDICAID, SELFPAY | END 2024-06-11 23:59 | disposition home or self-care (01) | LOC: LAB.DROPOF 06-12 10:52 | PROVIDERS: PCP Nurse Practitioner; Visit Provider Nurse Practitioner | DX: N39.0 Urinary tract infection, site not specified (principal) | CPT/HCPCS: 87086 ==

== ENCOUNTER 2024-06-14 09:35 | Outpatient (CLI) | payer MEDICARE, MEDICAID, SELFPAY ==
[2024-06-14 10:30] VITALS: PULSE 82; PULSE 86
== END 2024-06-14 23:59 | disposition home or self-care (01) ==
LOC: RT 09:36
PROVIDERS: PCP Family Medicine; Visit Provider Internal Medicine Pulmonary Disease
DX: R06.02 Shortness of breath (principal); J84.9 Interstitial pulmonary disease, unspecified
CPT/HCPCS: 94060; 94618; 94640

== ENCOUNTER 2024-06-16 12:57 | Outpatient (CLI) | payer MEDICARE, MEDICAID, SELFPAY ==
[2024-06-16 13:22] VITALS: BMI 47.0
[2024-06-16 13:35] LABS: Basophils # 0.1 K/mm3 (0-0.2); Basophils % 1.3 % (0.1-2.0); Eosinophils # 0.3 K/mm3 (0.0-0.4); Eosinophils % 3.3 % (0.1-12.0); Hematocrit 34.1 % (37.0-47.0); Hemoglobin 10.7 g/dL (12.2-16.2); Lymphocytes # 1.8 K/mm3 (0.7-4.5); Lymphocytes % 19.1 % (10-50); Mean Corpuscular HGB Conc 31.4 g/dL (31.8-35.4); Mean Corpuscular Hemoglobin 29.3 pg (27.0-31.2); Mean Corpuscular Volume 93.4 fl (81-99); Monocytes # 0.7 K/mm3 (0.1-1.0); Monocytes % 7.5 % (1.7-9.3); Neutrophils # 6.4 K/mm3 (1.8-7.8); Neutrophils % 68.4 % (37.0-80.0); Nucleated Red Blood Cells # 0 10^3/uL; Nucleated Red Blood Cells % 0 %; Platelet Count 121 K/mm3 (142-424); Red Blood Count 3.65 M/mm3 (4.20-5.40); Red Cell Distribution Width 16.5 % (11.5-17.5); Red Cell Distribution Width-SD 55.6 fL; White Blood Count 9.4 K/mm3 (4.8-10.8)
[2024-06-16 13:43] LABS: Chloride 109 mmol/L (98-107); Potassium 4.5 mmoL/L (3.5-5.1); Sodium 138 mmol/L (136-145)
[2024-06-16 13:46] LABS: Anion Gap 19.5 mEq/L (5-15); Blood Urea Nitrogen 14 mg/dl (7-17); Calcium 8.7 mg/dl (8.4-10.2); Carbon Dioxide 14 mmol/L (22.0-30.0); Creatinine Clearance Estimated 74 mL/min (50-200); Estimated Glomerular Filt Rate 73 ml/min (>60); GFR (African American) 89 ML/MIN (>60); Glucose 277 mg/dl (74-100)
== END 2024-06-16 23:59 | disposition home or self-care (01) ==
LOC: PREOP 12:57
PROVIDERS: Nurse Anesthetist, Certified Registered; PCP Family Medicine; Visit Provider Student in an Organized Health Care Education/Training Program
DX: Z01.812 Encounter for preprocedural laboratory examination (principal)
CPT/HCPCS: 80048; 85025

== ENCOUNTER 2024-06-22 07:30 | Outpatient (CLI) | payer MEDICARE, MEDICAID, SELFPAY ==
--- NOTE | 2024-06-22 07:47 | CA_ITS ---
APPROVED REPORT EXAM: Comprehensive 2D, Doppler, and color-flow Echocardiogram Pattern Gater: Jane Pryor RT(R) Ht: 5 ft 7 in Wt: 320lbs BSA: 2.47 BP: 140/83 mmHg Indications: recurrent fevers, HTN, RA, BROWN. 2D Dimensions Left Atrium 4.39 cm F: 2.7 - 3.8 LA Volume 31.10 mL LVOT 2.09 cm (M/F) 1.5-2.5 LA Volume Index 12.59 mL/m2 (M/F) 16-34 EF AP4 44.50 % GL Strain -16.8 % M-Mode Dimensions RVDd 2.21 cm (0.9-2.6) LVDd 4.22 cm (3.5-5.7) Ao Diam 2.47 cm (2.0-3.7) LVDs 3.04 cm (3.5-5.7) IVSd 1.18 cm (0.6-1.1) PWd 1.13 cm (0.6-1.1) EF (Teich) 54.50% FS 28.00% EDV (Teich) 79.50 mL ESV (Teich) 36.20 mL LV Diastology E Decel Time 214 (160-240 msec) E/A Ratio 1.5 MED E' 8.2 (>= 7 cm/sec) E'/MED E' Ratio 14.79 (<= 14) LAT E' 9.2 (>= 10 cm/sec) E/LAT E' Ratio 13.18 (<= 14) Mitral Valve MV E Max Sanket. 121.0 (40-130 cm/s) MV A Velocity 81.0 (40-130 cm/s) E/A Ratio 1.50 MV Decel. Time 214 (160-240 ms) Left Ventricle The left ventricle is normal size. The left ventricular systolic function is normal. The left ventricular ejection fraction is within the normal range. There is increased LV wall thickness. There is normal LV segmental wall motion. Diastolic function is indeterminate. LVEF is 55%. Right Ventricle The right ventricle is normal size. The right ventricular systolic function is normal. Atria Left atrium is mildly dilated. The right atrium size is normal. There is no Doppler evidence of interatrial shunt. Aortic Valve The aortic valve is mildly thickened. There is no aortic valvular stenosis. Trace aortic regurgitation. Mitral Valve The mitral valve is normal in structure. No evidence of mitral valve stenosis. Mild mitral regurgitation. Tricuspid Valve Tricuspid valve is grossly normal in structure and function. Mild tricuspid regurgitation. Pulmonic Valve The pulmonary valve is normal in structure. Trace pulmonic regurgitation. Great Vessels The aortic root is normal in size. IVC is normal in size and collapses >50% with inspiration. Pericardium There is no pericardial effusion. Other Information Study Quality: Fair Conclusion Normal biventricular systolic function. Mild LA dilation. Mild MR, mild TR. Electronically signed by : Honey Shaw MD 06/23/2024 13:55:09
--- NOTE | 2024-06-22 08:22 | CT_ITS ---
FINAL REPORT TECHNIQUE: Thin section axial images were obtained through the paranasal sinuses without contrast. Reconstruction images were obtained from the axial data. Exam was performed using dose reduction techniques such as automated exposure control, adjustment of the mA and kV according to patient size, and use of iterative reconstruction technique. CLINICAL HISTORY: RECURRENT FEVER FINDINGS: The paranasal sinuses are clear. There is no air-fluid level or significant mucosal thickening. The maxillary infundibulum are patent bilaterally. There is mild right nasal septal deviation. The mastoid air cells are clear. There is no acute osseous abnormality. Remaining soft tissues are unremarkable. IMPRESSION: No evidence of acute or chronic sinusitis. Reviewed, Interpreted and Dictated by Hortencia Simon MD Transcribed by Kate Marshall Authenticated and [facility]
--- NOTE | 2024-06-22 08:22 | CT_ITS ---
FINAL REPORT TECHNIQUE: Pre-and postcontrast axial imaging of the abdomen and pelvis was obtained.This study was performed with techniques to keep radiation doses as low as reasonably achievable, (ALARA). Individualized dose reduction technique using automated exposure control or adjustment of mA and/or kV according to the patient's size were employed. CLINICAL HISTORY: recurrent fever FINDINGS: The lung bases are clear. There is fatty infiltration of the liver. There is no focal hepatic lesion. The gallbladder is absent. The spleen is enlarged measuring up to 15 cm. The adrenal glands are unremarkable. There is abnormal attenuation surrounding the pancreas. Mild pancreatitis is not excluded. There is no hydronephrosis or solid renal mass. On precontrast imaging, no renal stones are identified. There is no small bowel obstruction. There is abnormal attenuation within the retroperitoneum bilaterally which could be related to fatty liver. Otherwise, etiology is unclear. The pelvic GI tract is without obstruction. There is a moderate amount of retained stool in the colon. The appendix is not visualized and may have been resected. There is a presumed IUD within the lower uterine segment and cervix. The ovaries are unremarkable. There is no free fluid. No acute osseous changes are seen. IMPRESSION: Fatty liver and splenomegaly. Questionable acute pancreatitis. Correlation with pancreatic enzymes is recommended. IUD in the lower uterine segment and cervix. Abnormal attenuation in the retroperitoneum bilaterally, nonspecific. Reviewed, Interpreted and Dictated by Hortencia Simon MD Transcribed by Kate Marshall Authenticated and [facility]
[2024-06-22] MEDS: SODIUM CHLORIDE 0.9% 10ML SYR (RAD ONLY) 10 ML IV (09:42)
[2024-06-22] MEDS: IOPAMIDOL-370 (76%);100ML BOTTLE 140 ML IV (09:42)
== END 2024-06-22 23:59 | disposition home or self-care (01) ==
LOC: RT 07:31
PROVIDERS: PCP Family Medicine; Visit Provider Family Medicine
DX: I51.7 Cardiomegaly (principal); I34.0 Nonrheumatic mitral (valve) insufficiency; I36.1 Nonrheumatic tricuspid (valve) insufficiency; K76.0 Fatty (change of) liver, not elsewhere classified; R16.1 Splenomegaly, not elsewhere classified; A68.9 Relapsing fever, unspecified
CPT/HCPCS: 70486; 74178; 93306; Q9967

== ENCOUNTER 2024-06-23 06:56 | Day surgery (SDC) | payer MEDICARE, MEDICAID, SELFPAY ==
[2024-06-16 14:24] VITALS: BMI 47.0
[2024-06-23] VITALS (9 sets, daily range): BP systolic 133–152; BP diastolic 49–87; PULSE 69–76; RESP 17–18; TEMP 36.1–36.6; O2SAT 92–97
[2024-06-23] MEDS: LACTATED RINGERS 1000ML 1,000 ML 50 ML IV (07:41)
--- NOTE | 2024-06-23 07:56 | EXP.ANES.CKL ---
[facility] Disclaimer: The information contained in this section may have been updated after the patient was seen, as this information can be updated by other users. Medical History Asthma Ear pain Retracted ear drum Otalgia, left ear Eustachian tube dysfunction BROWN on CPAP Moderate BROWN with nocturnal hypoxemia resolved on CPAP at 12 cm, excellent compliance, no intolerance. Adjustment disorder with mixed anxiety and depressed mood Ronels health issues cause many emotions to surface as she is trying to cope/adjust to the way her life is, or will be. Most of Martin's concerns are for the care and welfare of her autistic son, if something negative should happen to her. MDD (major depressive disorder), recurrent, with melancholic features Martin shared that there are several things that she has to do differently, or give up altogether because her health issues will not allow her to do the things anymore. This has caused Martin to be sad, irritable, scared, depressed, and at times, hopeless. Generalized anxiety disorder with panic attacks Martin reported having Anxiety and Panic attacks as a little girl, and she was known as a worry-wart. Currently, her anxious symptoms have been worse since March 2020 when she became very sick and now has several serious illnesses. Lupus Ovarian cyst Moderate persistent asthma Allergic rhinitis Mild intermittent asthma History of seronegative inflammatory arthritis Inflammatory polyarthritis Wheezing Dyspnea on exertion Surgical History History of surgery on lower extremity History of cholecystectomy History of esophagogastroduodenoscopy (EGD) History of colonoscopy History of tonsillectomy Family History Other Family history of cancer Heart attack Hypertension Stroke Social History Smoking Status: Never smoker alcohol intake: never substance use type: denies use current occupational status: disabled Travel in the last 8 weeks: Inside the [place] household members: other housing: apartment lives independently: Yes marital status: single number of children: 1 Have you lived/traveled outside [place] in past 30 days?: No Contact w/someone who lives/traveled outside [place] past 30 days?: No Exposure to someone with infectious disease in past 14 days?: No Do you have a fever (greater than 100.4 F or 38 C)?: No Have you tested positive for COVID-19: No Exposed to someone with COVID-19 in past 14 days?: No Do you have a sore throat?: No Do you have a cough?: No Do you have any weakness?: No Do you have any diarrhea?: No Are you experiencing any unusual bleeding?: No Do you have any muscle aches/pain?: No Do you have any abdominal pain?: No Are you experiencing loss of taste or smell?: No [facility] Anesthesia Checklist Patient Identification Patient Identification: Arm Band Structural Data Admitted From: Home Planned Operative Procedure/s: Left Myringotomy with Ear Tube Placement Consent for Planned Operative Procedure(s) Verified: Yes Verified Documents: Surgical Consent and History and Physical NPO Status Verified Time NPO: 00:00 Additional verifications Anesthesia Reactions: No Hx Blood Transfusions: No Blood Transfusion Reaction: No Airway Assessment Mallampati Score:: Class II C-Spine Mobility Assessed: Yes TMJ Mobility Assessed: Yes Dentition: Good Dentition Neurological Assessment Level of Consciousness: Awake, Alert and Appropriate Anesthesia Plan Anesthesia Risk discussed: Yes Anesthesia Plan: Verified ASA Class: III Anesthesia Type: General
[2024-06-23] MEDS: CIPRO 0.3%-DEX 0.1% OTIC SUSP 7.5ML 7.5 ML OT (08:40)
--- NOTE | 2024-06-23 08:48 | EXP.OP.NOTE ---
Date of procedure: 06/23/24 Pre-op Diagnosis:: left eustachian tube dysfunction Post-op Diagnosis:: same Procedure performed:: left myringotomy with tube placement Surgeon:: Marv Whitaker MD Anesthesia: LMA Estimated blood loss (mL): 0 Operative findings:: no effusion Operative note:: The patient was brought to the OR and laid in supine position. LMA anesthesia was induced. Patient was prepped and draped in the usual fashion. First in the left ear, myringotomy was made in the anterior-inferior quadrant. There was no effusion of fluid. Amy Bobbin tube was placed and then ear drops was instilled into the ear. Patient was then turned back over to anesthesia to be awoken. Condition: stable Disposition: PACU Complications:: none
--- NOTE | 2024-06-23 08:56 | EXP.ANES.I ---
[facility] [place] Anesthesia Record Part I Anesthesia Record I Intake, IV Amount: 600 Hydration: Adequate Estimated blood loss (mL): 0 Urine output (mL): 0 Blood Pressure: 136/76 SaO2: 92 Pulse Rate: 73 Airway Patency: Patent Respiratory Rate: 18 Temperature: 97 F Patient is:: Awake Stable to PACU at:: 09:00
--- NOTE | 2024-06-23 13:21 | P.PNANES_ITS ---
[facility] Anesthesia Record Part II Anesthesia Record Part II Discharge Time: 09:20 Destination: Surgical Day Care (OP Surgery) PACU nurse assessment reviewed?: Yes Patient Condition:: Good Anesthesia Complications:: None Swallowing reflex intact?: Yes Airway Patency: Patent Cyanosis?: No Blood Pressure: 152/71 SaO2: 93 Respiratory Rate: 18 Pulse Rate: 70 Temperature: 97.8 F Mental Status: Alert & Oriented Pain level:: 0 Nausea and/or vomitting:: None Intake, IV Amount: 0 Hydration: Adequate
== END 2024-06-23 09:50 | disposition home or self-care (01) ==
PROVIDERS: PCP Family Medicine; Visit Provider Student in an Organized Health Care Education/Training Program
PROC: (CPT 69436; principal; 2024-06-23 08:30)
DX: H69.82 Other specified disorders of Eustachian tube, left ear (principal)
CPT/HCPCS: 69436; J1100; J2405; J3010; J7120

== ENCOUNTER 2024-09-24 12:51 | Observation (INO) | payer MEDICARE, MEDICAID, SELFPAY ==
--- OUTSIDE RECORDS SUMMARY | 2024-08-23 10:00 | XMS_ITS | Encounter Summary ---
Author Organization [facility] Address [address] [id number] Care Team Providers Care Interlocking Tower Operator Name Role Phone Dru Giles MD Primary Care Provider [phone] Reason for Referral * Imaging (Routine) - Pending Review Specialty Diagnoses / Procedures Referred By Giana lo Referred To Contact Gastroenterology Diagnoses Gastroesophageal reflux disease, unspecified whether esophagitis present History of cirrhosis Bilious vomiting with nausea Procedures EGD Saul Encinas PA [address] [address] Phone: tel: fax: Referral ID Status Reason Start Date Expiration Date Visits Requested Visits Authorized [id number] Pending Review Specialty Services Required 08/24/2024 02/23/2026 1 1 * Consultation (Routine) - Authorized Specialty Diagnoses / Procedures Referred By Giana lo Referred To Contact Diagnoses Gastroesophageal reflux disease, unspecified whether esophagitis present Chronic constipation Saul Encinas PA [address] [facility] [address] [place] [phone] Phone: tel: fax: Referral ID Status Reason Start Date Expiration Date V isits Requested Visits Authorized [id number] Authorized 08/23/2024 02/22/2026 1 1 Reason for Visit * Reason Comments Chronic constipation Pelvic floor dysfunction in female Encounter Details Date Type Department Care Team (Latest Contact Info) Description 08/23/2024 10:00 AM EDT Office Visit [facility] [address] [place] [address] Saul Encinas PA [address] [place] [address] Gastroesophageal reflux disease, unspecified whether [...] 9:43 AM EDT Maria R Tempest A Feeling tired or having santos [...] by AMELIE Bee). Follows with Hepatology for [facility] Cirrhosis. Last OV : Referral to PFPT [...] to schedule PFPT d/t recent illness. [facility] told pt had IBS. Not needing linzess. 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 [id number] Ari Barfield MD [address] [place] [address] 12/29/2024 1:30 PM EDT Office Visit [facility] [address] [place] [address] Jesus Tanner MD [address] [place] [address] 02/28/2025 10:00 AM EST Office Visit [facility]ties [address] [place] [address] Saul Encinas PA [address] [place] [address] 07/12/2025 11:00 AM EDT Ovarian Cancer Screening [facility] [address] [place] [address] Scheduled Orders Name Type Priority Associated Diagnoses Orde r Schedule EGD Endoscopy Routine Gastroesophageal reflux disease, unspecified whether esophagitis present History of cirrhosis Bilious vomiting with nausea Expected: 08/24/2024, Expires: 02/25/2026 Scheduled Referrals Name Type Priority Associated Diagnoses Orde r Schedule Follow Up GI Outpatient Referral Routine Gastroesophageal reflux disease, unspecified whether esophagitis present Chronic constipation Expected: 02/22/2025, Expires: 09/22/2025 documented as of this encounter Goals Goal Patient Goal Type Associated Problems Recent Progress Patient-Stated? Author Autogenerat ed Goal Care Plan Autogenerated Problem No Dana Ng documented as of this encounter Results * (ABNORMAL) Alpha Fetoprotein, Serum (08/23/2024 10:38 AM EDT) Alpha Fetoprotein, Serum 10.5(H) <10.0 ng/mL 08/23/2024 11:54 AM EDT [facility] Blood Venous blood specimen / Unknown Venipuncture / Unknown 08/23/2024 10:38 AM EDT 08/23/2024 10:39 AM EDT Narrative [facility] - 08/23/2024 11:54 AM EDT Performed by Brandi electrochemiluminescent immunoassay which is traceable to the 1st AFP IRP WHO Reference standard 72/255. Results obtained with different test methods or kits cannot be used interchangeably. us Saul TOTH LAB BLOOD ORDERABLES Final Resu lt [facility] [address] [place] [address] * (ABNORMAL) Protime-INR (08/23/2024 10:38 AM EDT) Prothrombin Time 17.7(H) 12.0 - 14.3 sec LAB COAGULATION METHOD 08/23/2024 1:05 PM EDT [facility] INR 1.4(H) 0.9 - 1.1 LAB COAGULATION METHOD 08/23/2024 1:05 PM EDT [facility] Blood Venous blood specimen / Unknown Venipuncture / Unknown 08/23/2024 10:38 AM EDT 08/23/2024 10:39 AM EDT Narrative [facility] - 08/23/2024 1:05 PM EDT OPTIMAL INR RANGES FOR PATIENT ON ORAL ANTICOAGULANT THERAPY Prevention of venous thromboembolism INR 2.0 to 3.0 In patients with heart disease: Atrial fibrillation INR 2.0 to 3.0 Valvular heart disease INR 2.0 to 3.0 Tissue heart valves INR 2.0 to 3.0 Mechanical prosthetic valves INR 2.5 to 3.5 Prevention of recurrent IA INR 2.5 to 3.5 us Saul TOTH [facility] BLOOD ORDERABLES Final Resu lt [facility] [address] [place] [address] * (ABNORMAL) CBC and differential (08/23/2024 10:38 AM EDT) [facility] WBC Count 6.90 3.70 - 10.30 10*3/uL LAB HEMATOLOGY METHOD 08/23/2024 11:44 AM EDT [facility] RBC Count 3.25(L) 3.90 - 5.20 10*6/uL LAB HEMATOLOGY METHOD 08/23/2024 11:44 AM EDT [facility] HGB 9.6(L) 11.2 - 15.7 g/dL LAB HEMATOLOGY METHOD 08/23/2024 11:44 AM EDT [facility] HCT 31.5(L) 34.0 - 45.0 % LAB HEMATOLOGY METHOD 08/23/2024 11:44 AM EDT [facility] Platelet Count 245 155 - 369 10*3/uL LAB HEMATOLOGY METHOD 08/23/2024 11:44 AM EDT [facility] MCV 97 79 - 98 fL LAB HEMATOLOGY METHOD 08/23/2024 11:44 AM EDT [facility] MCH 29.5 26.0 - 32.0 pg LAB HEMATOLOGY METHOD 08/23/2024 11:44 AM EDT [facility] MCHC 30.5(L) 30.7 - 35.5 g/dL LAB HEMATOLOGY METHOD 08/23/2024 11:44 AM EDT [facility] RDW 16.9(H) 11.5 - 14.5 % LAB HEMATOLOGY METHOD 08/23/2024 11:44 AM EDT [facility] MPV 10.4 8.8 - 12.5 fL LAB HEMATOLOGY METHOD 08/23/2024 11:44 AM EDT [facility] nRBC 0.0 <=0.0 per 100 WBCs LAB HEMATOLOGY METHOD 08/23/2024 11:44 AM EDT [facility] Differential Type Automated LAB HEMATOLOGY METHOD 08/23/2024 11:44 AM EDT [facility] Neutrophils % 68 % LAB HEMATOLOGY METHOD 08/23/2024 11:44 AM EDT [facility] Lymphocytes % 20 % LAB HEMATOLOGY METHOD 08/23/2024 11:44 AM EDT [facility] Monocytes % 4 % LAB HEMATOLOGY METHOD 08/23/2024 11:44 AM EDT [facility] Eosinophils % 6 % LAB HEMATOLOGY METHOD 08/23/2024 11:44 AM EDT [facility] Basophils % 2 % LAB HEMATOLOGY METHOD 08/23/2024 11:44 AM EDT [facility] Immature Granulocytes % 0 % LAB HEMATOLOGY METHOD 08/23/2024 11:44 AM EDT [facility] Neutrophils Absolute 4.76 1.60 - 6.10 10*3/uL LAB HEMATOLOGY METHOD 08/23/2024 11:44 AM EDT [facility] Lymphocytes Absolute 1.35 1.20 - 3.90 10*3/uL LAB HEMATOLOGY METHOD 08/23/2024 11:44 AM EDT [facility] Monocytes Absolute 0.25(L) 0.30 - 0.90 10*3/uL LAB HEMATOLOGY METHOD 08/23/2024 11:44 AM EDT [facility] Eosinophils Absolute 0.41 0.00 - 0.50 10*3/uL LAB HEMATOLOGY METHOD 08/23/2024 11:44 AM EDT [facility] Basophils Absolute 0.11(H) 0.00 - 0.10 10*3/uL LAB HEMATOLOGY METHOD 08/23/2024 11:44 AM EDT [facility] Immature Granulocytes Absolute 0.02 0.00 - 0.06 10*3/uL LAB HEMATOLOGY METHOD 08/23/2024 11:44 AM EDT [facility] Blood Venous blood specimen / Unknown Venipuncture / Unknown 08/23/2024 10:38 AM EDT 08/23/2024 10:39 AM EDT [facility] - 08/23/2024 11:44 AM EDT Therapeutic decision making should be based on absolute values, rather than percentages. us Saul TOTH LAB BLOOD ORDERABLES Final Resu lt [facility] [address] [place] [address] * (ABNORMAL) Comprehensive metabolic panel (08/23/2024 10:38 AM EDT) Glucose, Plasma 132(H) 74 - 99 mg/dL 08/23/2024 11:51 AM EDT [facility] BUN, Plasma 13 7 - 21 mg/dL 08/23/2024 11:51 AM EDT [facility] Creatinine, Plasma 0.74 0.60 - 1.10 mg/dL 08/23/2024 11:51 AM EDT [facility] BUN/Creatinine Ratio 18 08/23/2024 11:51 AM EDT [facility] Sodium, Plasma 143 136 - 145 mmol/L 08/23/2024 11:51 AM EDT [facility] Potassium, Plasma 3.8 3.6 - 4.9 mmol/L 08/23/2024 11:51 AM EDT [facility] Chloride, Plasma 108(H) 97 - 107 mmol/L 08/23/2024 11:51 AM EDT [facility] CO2, Plasma 22 22 - 29 mmol/L 08/23/2024 11:51 AM EDT [facility] Anion Gap 13 6 - 16 mmol/L 08/23/2024 11:51 AM EDT [facility] Total Calcium, Plasma 8.8(L) 8.9 - 10.2 mg/dL 08/23/2024 11:51 AM EDT [facility] Total Protein 6.8 6.3 - 7.9 g/dL 08/23/2024 11:51 AM EDT [facility] Albumin, Plasma 3.5 3.5 - 5.2 g/dL 08/23/2024 11:51 AM EDT [facility] AST, Plasma 53(H) 10 - 35 U/L 08/23/2024 11:51 AM EDT [facility] ALT, Plasma 31 10 - 35 U/L 08/23/2024 11:51 AM EDT [facility] Alkaline Phosphatase, Plasma 222(H) 46 - 142 U/L 08/23/2024 11:51 AM EDT [facility] Total Bilirubin, Plasma 1.0 0.2 - 1.1 mg/dL 08/23/2024 11:51 AM EDT [facility] eGFRcr 93.3 mL/min/1.7 3m*2 08/23/2024 11:51 AM EDT [facility] Comment:Reported eGFRcr in m L/min/1.73m2 is based the CKD-EPI 2020 equation that does not use a race coefficient. Blood Venous blood specimen / Unknown Venipuncture / Unknown 08/23/2024 10:38 AM EDT 08/23/2024 10:39 AM EDT Saul TOTH LAB BLOOD ORDERABLES Final Resu lt [facility] [address] [place] [address] documented in this encounter Visit Diagnoses Diagnosis [...] documented as of this encounter Care Teams Interlocking Tower Operator Relationship Specialty Start Date End Date Dru Giles MD PCP - General 11/21/21 documented as of this encounter
--- OUTSIDE RECORDS SUMMARY | 2024-09-20 13:30 | XMS_ITS | Encounter Summary ---
Author Organization [facility] Address [address] [id number] Care Team Providers Care Farm Supervisor Name Role Phone Dru Giles MD Primary Care Provider [phone] Reason for Visit * Reason Comments Seronegative rheumatoid arthritis of [facility] Follow-up Encounter Details Date Type Department Care Team (Late st Contact Info) Description 09/20/2024 1:30 PM EDT Office Visit [facility]ties [address], [address] [place] [address] Jesus Tanner MD [address] [place] [address] Inflammatory polyarthritis (CMS/HCC); High risk [...] injectable, preservative free 12/18/2023 Moderna COVID-19 Vaccine (Waiter/Waitress Informal) 12+ years 05/10/2020, 06/07/2020, 01/03/2021 Moderna COVID-19 [...] mg, Nightly Multiple Vitamins-Minerals (EQ One Daily Beacon Power) tablet 1 tablet, Daily ondansetron (ZOFRAN) 4 [...] Plasma 08/23/2024 187 (L) Total Iron Binding [place]* 08/23/2024 234 (L) Transferrin Saturation 08/23/2024 18 [...] Parts of this note were dictated using [employer] voice recognition software. As a result, errors may occur. When identified, these webbing inspector errors are corrected, but while every attempt [...] and other consulting physicians. Jesus Tanner MD [facility] [place] Division of Rheumatology Department of Internal Medicine [facility] Electronically Signed by: Jesus Tanner MD [...] injectable, preservative free 12/18/2023 Moderna COVID-19 Vaccine (Waiter/Waitress Informal) 12+ years 05/10/2020, 06/07/2020, 01/03/2021 Moderna COVID-19 [...] mg, Nightly Multiple Vitamins-Minerals (EQ One Daily Beacon Power) tablet 1 tablet, Daily ondansetron (ZOFRAN) 4 [...] Plasma 08/23/2024 187 (L) Total Iron Binding [place]* 08/23/2024 234 (L) Transferrin Saturation 08/23/2024 18 [...] Parts of this note were dictated using [employer] Direct voice recognition software. As a result, errors may occur. When identified, these webbing inspector errors are corrected, but while every attempt [...] sent to PCP and other consulting physicians. Jessu Tanner MD [facility] [place] Division of Rheumatology Department of Internal Medicine [facility] Electronically Signed by: Jesus Tanner MD - 09/20/2024 - 2:36 PM documented in this encounter Plan of Treatment Upcoming Encounters Date Type Department Care Team (Late st Contact Info) Description 10/07/2024 1:20 PM EDT Office Visit [facility] Medicine Specialties [address], [address] [place] [address] Rebekah Aragon PA [address] [place] [address] 10/14/2024 12:40 PM EDT Appointment [facility] Endoscopy [address] [place] [address] Ari Barfield MD [address] [place] [address] 12/29/2024 1:30 PM EDT Office Visit [facility] [address], [address] [place] [address] Jesus Tanner MD [address] [place] [address] 02/28/2025 10:00 AM EST Office Visit [facility] [address], [address] [place] [address] Ce, Melyssa M, PA [address] [place] [address] 07/12/2025 11:00 AM EDT Ovarian Cancer Screening [facility] Gynecology [address] [facility], 3rd [place] [address] documented as of this encounter Goals Goal Patient Goal Type Associated Problems Recent Progress Patient-Stated? Author Autogenerat ed Goal Care Plan Autogenerated Problem No Dana Ng documented as of this encounter Results * C-reactive protein (09/20/2024 2:05 PM EDT) CRP, Plasma 6.7 <=8.0 mg/L 09/20/2024 3:14 PM EDT [facility] Blood Venous blood specimen / Unknown Venipuncture / Unknown 09/20/2024 2:05 PM EDT 09/20/2024 2:05 PM EDT Narrative [facility] - 09/20/2024 3:14 PM EDT This CRP test is appropriate for assessment of infection, systemic inflammation and/or tissue injury. To assess cardiovascular disease risk order high sensitivity CRP (CRPH). Jesus Tanner MD LAB BLOOD ORDERABLES Final Re sult Performing Organization Address City/[facility]/ZIP Co de Phone Number [facility] [address] [place] [address] * (ABNORMAL) Sedimentation Rate, Automated (09/20/2024 2:05 PM EDT) Sedimentation Rate 58(H) <30 mm/hr 2024 3:19 PM EDT [facility] Blood Venous blood specimen / Unknown Venipuncture / Unknown 09/20/2024 2:05 PM EDT 09/20/2024 2:05 PM EDT Jesus Tanner MD LAB BLOOD ORDERABLES Final Re sult Performing Organization Address City/[facility]/ZIP Co de Phone Number [facility] [address] [place] [address] * (ABNORMAL) Comprehensive metabolic panel (09/20/2024 2:05 PM EDT) [facility] Signature Glucose, Plasma 117(H) 74 - 99 mg/dL 09/20/2024 3:14 PM EDT [facility] BUN, Plasma 13 7 - 21 mg/dL 09/20/2024 3:14 PM EDT [facility] Creatinine, Plasma 0.91 0.60 - 1.10 mg/dL 09/20/2024 3:14 PM EDT [facility] BUN/Creatinine Ratio 09/20/2024 3:14 PM EDT [facility] Sodium, Plasma 140 136 - 145 mmol/L 09/20/2024 3:14 PM EDT [facility] Potassium, Plasma 3.8 3.6 - 4.9 mmol/L 09/20/2024 3:14 PM EDT [facility] Chloride, Plasma 106 97 - 107 mmol/L 09/20/2024 3:14 PM EDT [facility] CO2, Plasma 22 22 - 29 mmol/L 09/20/2024 3:14 PM EDT [facility] Anion Gap 12 6 - 16 mmol/L 09/20/2024 3:14 PM EDT [facility] Total Calcium, Plasma 9.3 8.9 - 10.2 mg/dL 09/20/2024 3:14 PM EDT [facility] Total Protein 7.5 6.3 - 7.9 g/dL 09/20/2024 3:14 PM EDT [facility] Albumin, Plasma 3.7 3.5 - 5.2 g/dL 09/20/2024 3:14 PM EDT [facility] AST, Plasma 54(H) 10 - 35 U/L 09/20/2024 3:14 PM EDT [facility] ALT, Plasma 30 10 - 35 U/L 09/20/2024 3:14 PM EDT [facility] Alkaline Phosphatase, Plasma 180(H) 46 - 142 U/L 09/20/2024 3:14 PM EDT [facility] Total Bilirubin, Plasma 1.7(H) 0.2 - 1.1 mg/dL 09/20/2024 3:14 PM EDT [facility] eGFRcr 72.8 mL/min/1.7 3m*2 09/20/2024 3:14 PM EDT [facility] Comment:Reported eGFRcr in m L/min/1.73m2 is based the CKD-EPI 2020 equation that does not use a race coefficient. Blood Venous blood specimen / Unknown Venipuncture / Unknown 09/20/2024 2:05 PM EDT 09/20/2024 2:05 PM EDT us Jesus Tanner MD LAB BLOOD ORDERABLES Final Re sult [facility] [address] [place] [address] * (ABNORMAL) CBC and differential (09/20/2024 2:05 PM EDT) WBC Count 8.34 3.70 - 10.30 10*3/uL LAB HEMATOLOGY METHOD 09/20/2024 4:01 PM EDT [facility] RBC Count 3.64(L) 3.90 - 5.20 10*6/uL LAB HEMATOLOGY METHOD 09/20/2024 4:01 PM EDT [facility] HGB 11.0(L) 11.2 - 15.7 g/dL LAB HEMATOLOGY METHOD 09/20/2024 4:01 PM EDT [facility] HCT 35.9 34.0 - 45.0 % LAB HEMATOLOGY METHOD 09/20/2024 4:01 PM EDT [facility] Platelet Count 163 155 - 369 10*3/uL LAB HEMATOLOGY METHOD 09/20/2024 4:01 PM EDT [facility] MCV 99(H) 79 - 98 fL LAB HEMATOLOGY METHOD 09/20/2024 4:01 PM EDT [facility] MCH 30.2 26.0 - 32.0 pg LAB HEMATOLOGY METHOD 09/20/2024 4:01 PM EDT [facility] MCHC 30.6(L) 30.7 - 35.5 g/dL LAB HEMATOLOGY METHOD 09/20/2024 4:01 PM EDT [facility] RDW 16.0(H) 11.5 - 14.5 % LAB HEMATOLOGY METHOD 09/20/2024 4:01 PM EDT [facility] MPV 10.7 8.8 - 12.5 fL LAB HEMATOLOGY METHOD 09/20/2024 4:01 PM EDT [facility] nRBC 0.0 <=0.0 per 100 WBCs LAB HEMATOLOGY METHOD 09/20/2024 4:01 PM EDT [facility] Differential Type Automated LAB HEMATOLOGY METHOD 09/20/2024 4:01 PM EDT [facility] Neutrophils % 68 % LAB HEMATOLOGY METHOD 09/20/2024 4:01 PM EDT [facility] Lymphocytes % 25 % LAB HEMATOLOGY METHOD 09/20/2024 4:01 PM EDT [facility] Monocytes % 1 % LAB HEMATOLOGY METHOD 09/20/2024 4:01 PM EDT [facility] Eosinophils % 5 % LAB HEMATOLOGY METHOD 09/20/2024 4:01 PM EDT [facility] Basophils % 1 % LAB HEMATOLOGY METHOD 09/20/2024 4:01 PM EDT [facility] Immature Granulocytes % 0 % LAB HEMATOLOGY METHOD 09/20/2024 4:01 PM EDT [facility] Neutrophils Absolute 5.55 1.60 - 6.10 10*3/uL LAB HEMATOLOGY METHOD 09/20/2024 4:01 PM EDT [facility] Lymphocytes Absolute 2.12 1.20 - 3.90 10*3/uL LAB HEMATOLOGY METHOD 09/20/2024 4:01 PM EDT [facility] Monocytes Absolute 0.12(L) 0.30 - 0.90 10*3/uL LAB HEMATOLOGY METHOD 09/20/2024 4:01 PM EDT [facility] Eosinophils Absolute 0.44 0.00 - 0.50 10*3/uL LAB HEMATOLOGY METHOD 09/20/2024 4:01 PM EDT [facility] Basophils Absolute 0.08 0.00 - 0.10 10*3/uL LAB HEMATOLOGY METHOD 09/20/2024 4:01 PM EDT [facility] Immature Granulocytes Absolute 0.03 0.00 - 0.06 10*3/uL LAB HEMATOLOGY METHOD 09/20/2024 4:01 PM EDT [facility] Blood Venous blood specimen / Unknown Venipuncture / Unknown 09/20/2024 2:05 PM EDT 09/20/2024 2:05 PM EDT Narrative [facility] - 09/20/2024 4:01 PM EDT Therapeutic decision making should be based on absolute values, rather than percentages. us Jesus Tanner MD LAB BLOOD ORDERABLES Final Re sult [facility] [address] [place] [address] documented in this encounter Visit Diagnoses Diagnosis [...] documented as of this encounter Care Teams Farm Supervisor Relationship Specialty Start Date End Date Dru Giles MD PCP - General 11/21/21 documented as of this encounter
[2024-09-24] VITALS (14 sets, daily range): BP systolic 132–166; BP diastolic 55–74; PULSE 84–113; RESP 12–22; TEMP 36.8–38.1; O2SAT 95–100; BMI 46.3; BMI 47.0; BMI 47.9
--- OUTSIDE RECORDS SUMMARY | 2024-09-24 12:57 | XMS_ITS | Encounter Summary ---
Author Organization Healthcare Address [address] [place] [address] Care Team Providers Care Crossing Supervisor Name Role Phone Dru Giles MD Primary Care Provider [phone] Encounter Details Date Type Department Care Team (Late st Contact Info) Description 08/03/2024 Telephone [facility] [address] [place] [address] Afua Melo, RN [facility]UTE [facility] 10-T1 Social History Tobacco Use Types Packs/Day Years Used Date Smoking Tobacco: Never Passive Smoke Exposure: Never Smokeless Tobacco: Never Alcohol Use Standard Drinks/Week Comments Not Currently 0 (1 standard drink = 0.6 oz pur e alcohol) PHQ-2 Answer Date Recorded Patient Health Questionnaire-2 Score 0 07/21/2024 PHQ-9 Answer Date Recorded Patient Health Questionnaire-9 Score 7 06/14/2024 PHQ-2A Answer Date Recorded Patient Health Questionnaire-2 Score 0 01/23/2023 Comments No Sex and Gender Information Value Date Recorded Sex Assigned at Not on file Legal Sex Female 8:47 PM EDT Gender Identity Not on file Sexual Orientation Not on file documented as of this encounter Miscellaneous Notes * Telephone Encounter - Afua Melo, RN - 08/03/2024 10:04 AM EDT I called pt and told pt that Dr. Brown stated, I don't think there's any thing infectious causing it - I did the biopsy to try to figure out if it was related to fevers she had but it just showeddermatitis (non specific inflammation of the skin). I would recommend following with her PCP or mica parts sprayer They might trial some topical steroids given the biopsy showing the dermatitis. . Pt verbalized understanding and denies questions. * Telephone Encounter - Afua Melo RN - 08/03/2024 9:27 AM EDT Pt called and stated that the rash is worse. It is now also down around her ankle, up her leg, and it is now red. She wants to know if you need to see her again. Please advise. documented in this encounter Plan of Treatment Upcoming Encounters Date Type Department Care Team (Late st Contact Info) Description 10/07/2024 1:20 PM EDT Office Visit [place] [id number] [address] Rebekah Aragon PA [address] [place] [address] 10/14/2024 12:40 PM EDT Appointment [facility] Endoscopy [address] [place] [address] Ari Barfield MD [address] [place] [address] 12/29/2024 1:30 PM EDT Office Visit [facility] [address] [address] Jesus Tanner MD [address] [place] [address] 02/28/2025 10:00 AM EST Office Visit [place] [address] [address] Melyssa Encinas, JANEY [address] [place] [address] 07/12/2025 11:00 AM EDT Ovarian Cancer Screening [facility] Gynecology [address]rd [place] [address] documented as of this encounter Visit Diagnoses Not on filedocumented in this encounter Additional Health Concerns Assessment Noted Time PHQ-9 Depression Total Score: 7 06/15/19 25 3:57 PM EDT A fall risk assessment has been complete d for the patient 07/21/2024 11:04 AM EDT A Body Mass Index follow-up plan has been documented for the patient 07/21/2024 12:01 PM EDT documented as of this encounter Care Teams Crossing Supervisor Relationship Specialty Start Date End Date Dru Giles MD PCP - General 11/21/21 documented as of this encounter
--- OUTSIDE RECORDS SUMMARY | 2024-09-24 12:57 | XMS_ITS | Encounter Summary ---
Author Organization [facility] Address [address] [place] [address] Care Team Providers Care Diesel Truck Technician Name Role Phone Dru Giles MD Primary Care Provider [phone] Encounter Details Date Type Department Care Team ([facility] Contact Info) Description 07/28/2024 Results Follow-Up Specialty Care [facility] [address] [address] [facility], [address] [place] [address] Afua Melo, RN [facility] A PROGRESSIVE-ACUTE UNIT 10-T1 Social History Tobacco [...] on file documented as of this encounter Plan of Treatment Upcoming Encounters Date Type Department Care Team ([facility] Contact Info) Description 10/07/2024 1:20 PM EDT Office Visit [facility]ties [address], [address] [place] [address] Rebekah Aragon, JANEY [address] [place] [address] 10/14/2024 12:40 PM EDT Appointment [facility] Endoscopy [address] [place] [address] Ari Barfield MD [address] [place] [address] 12/29/2024 1:30 PM EDT Office Visit [facility] Medicine Specialties [address], [address] [place] [address] Jesus Tanner MD [address] [place] [address] 02/28/2025 10:00 AM EST Office Visit [facility] Medicine Specialties [address], [address]nd [place] [address] Melyssa Encinas PA [address] [place] [address] 07/12/2025 11:00 AM EDT Ovarian Cancer Screening [facility] Gynecology [address] [facility], 3rd [place] [address] documented as of this encounter Visit Diagnoses [...] documented as of this encounter Care Teams Diesel Truck Technician Relationship Specialty Start Date End Date Dru Giles MD PCP - General 11/21/21 documented as of this encounter
--- OUTSIDE RECORDS SUMMARY | 2024-09-24 12:57 | XMS_ITS | Encounter Summary ---
Author Organization Healthcare Address [address] [place] [id number] Care Team Providers Care Features Editor Name Role Phone Dru Giles MD Primary Care Provider [phone] Encounter Details Date Type Department Care Team (Late st Contact Info) Description 07/02/2024 Results Follow-Up [facility] Medicine Specialties [address], [address] [place] [address] Rebekah Aragon PA [address] [place] [address] Social History Tobacco Use Types Packs/Day Years [...] on file documented as of this encounter Functional Status * Over the past 2 weeks, how often have you been bothered by any of the following problems? Question Answer Date of Assessment Author Little interest or pleasure in doing things Not at all 08/23/2024 9:43 AM EDT Heck, Tempest A Feeling down, depressed, or hopeless Not at all 08/23/2024 9:43 AM EDT Franca Heckt A Patient Health Questionnaire -2 Score 0 08/23/2024 9:43 AM EDT Braulio Heckpest A * Question Answer Date of Assessment Author Trouble falling or staying asleep, or sleeping too much Not at all 08/23/2024 9:43 AM EDT Maria R Tempest A Feeling tired or having santos le energy Not at all 08/23/2024 9:43 AM EDT Maria R Tempest A Poor appetite or overeating Not at all 08/23/2024 9: 43 AM EDT Maria R Tempest A Feeling bad about yourself - or that you are a failure or have let yourself or your family down Not at all 08/23/2024 9:43 AM EDT Franca Murrellt A Trouble concentrating on thi ngs, such as reading the newspaper or watching television Not at all 08/23/2024 9:43 AM EDT Franca Heckt A Moving or speaking so slowly that other people could have noticed? Or the opposite - being so fidgety or restless that you have been moving around a lot more than usual. Not at all 08/23/2024 9:43 AM EDT Luz Maria Heck A Thoughts that you would be b luis enrique off or hurting yourself in some way Not at all 08/23/2024 9:43 AM EDT Franca Heckt A Patient Health Questionnaire -9 Score 0 08/23/2024 9:43 AM EDT Luz Maria Heck A * If you checked off any problems on this questionnaire so far, Question Answer Date of Assessment Author How difficult have these problems made it for you to do your work, take care of things at home, or get along with other people? Not difficult at all 08/23/2024 9:43 AM EDT Luz Maria Heck A documented as of this encounter Plan of Treatment Upcoming Encounters Date Type Department Care Team (Late st Contact Info) Description 10/07/2024 1:20 PM EDT Office Visit [facility] Medicine Specialties [address] [place] [address] Rebekah Aragon PA [address] [place] [address] 10/14/2024 12:40 PM EDT Appointment [facility] Endoscopy [address] [place] [address] Ari Barfield MD [address] [place] [address] 12/29/2024 1:30 PM EDT Office Visit [facility] Medicine Specialties [address], [address] [place] [address] Jesus Tanner MD [address] [facility] [address] [place] [address] 02/28/2025 10:00 AM EST Office Visit [facility] Medicine Specialties [address], [address] [place] [address] Melyssa Encinas PA [address] [place] [address] 07/12/2025 11:00 AM EDT Ovarian Cancer Screening [facility] Gynecology [address] [place] [address] documented as of this encounter Visit Diagnoses Not on filedocumented in this encounter Additional Health Concerns Assessment Noted Time PHQ-9 Depression Total Score: 7 06/15/19 25 3:57 PM EDT A fall risk assessment has been complete d for the patient 06/24/2024 3:57 PM EDT A Body Mass Index follow-up plan has been documented for the patient 06/25/2024 2:51 PM EDT documented as of this encounter Care Teams Features Editor Relationship Specialty Start Date End Date Dru Giles MD PCP - General 11/21/21 documented as of this encounter
--- OUTSIDE RECORDS SUMMARY | 2024-09-24 12:57 | XMS_ITS | Encounter Summary ---
Author Organization Healthcare Address [address] [place] [id number] Care Team Providers Care Rn Office Name Role Phone Dru Giles MD Primary Care Provider [phone] Reason for Visit * Reason Onset Date Comments HCN - Patient Message 07/12/2024 Encounter Details Date Type Department Care Team (Late st Contact Info) Description 07/12/2024 Telephone [facility] Medicine [facility] [address] [place] [address] Rebekah Aragon, JANEY [address] [place] [address] HCN - Patient Message Social History Tobacco Use Types Packs/Day Years [...] pleasure in doing things Not at all 07/21/2024 11:04 AM EDT Angelica Lopez Feeling down, depressed, or hopeless Not at all 07/21/2024 11:04 AM EDT Angelica Lopez Patient Health Questionnaire -2 Score 0 07/21/2024 11:04 AM EDT Angelica Lopez documented as of this encounter Miscellaneous Notes * Telephone Encounter - Ksenia Núñez - 07/12/2024 1:08 PM EDT Called pt & scheduled * Telephone Encounter - Rhoda Fields - 07/12/2024 11:53 AM EDT Clinical Concern/Question Reason for Call: Patient needs to r/s her missed appointment this morning as she isn't feeling well. No openings in system Best contact number: [phone] (home) Optimal time of day to reach caller: ANYTIME Additional comments/information from caller: Note: Please do not reply to this message. Follow-up communication and further actions as a result of this message need to be communicated with the patient directly, if the patient is not active onMyChart. If the patient is active on MyChart, they will receive notification of the communication/outcome via MyChart. documented in this encounter Plan of Treatment Upcoming Encounters Date Type Department Care Team (Late st Contact Info) Description 10/07/2024 1:20 PM EDT Office Visit [facility] Medicine Specialties [address] [place] [address] Rebekah Aragon PA [address] [place] [address] 10/14/2024 12:40 PM EDT Appointment [facility] Endoscopy [address] [place] [address] Ari Barfield MD [address] [place] [address] 12/29/2024 1:30 PM EDT Office Visit [facility] Medicine Specialties [address], [address] [place] [address] Jesus Tanner MD [address] [place] [address] 02/28/2025 10:00 AM EST Office Visit [facility] Medicine Specialties [address], [address] [place] [address] Melyssa Encinas PA [address] [facility] [address] [place] [address] 07/12/2025 11:00 AM EDT Ovarian Cancer Screening [facility] Gynecology [address] [facility], 3rd [place] [address] documented as of this encounter Visit Diagnoses Not on filedocumented in this encounter Additional Health Concerns Assessment Noted Time PHQ-9 Depression Total Score: 7 06/15/19 25 3:57 PM EDT A fall risk assessment has been complete d for the patient 07/05/2024 9:57 AM EDT A Body Mass Index follow-up plan has been documented for the patient 07/05/2024 10:36 AM EDT documented as of this encounter Care Teams Rn Office Relationship Specialty Start Date End Date Dru Giles MD PCP - General 11/21/21 documented as of this encounter
--- NOTE | 2024-09-24 12:58 | CT_ITS ---
FINAL REPORT TECHNIQUE: Noncontrast exam This study was performed with techniques to keep radiation doses as low as reasonably achievable, (ALARA). Individualized dose reduction techniques using automated exposure control or adjustment of mA and/or kV according to the patient's size were employed. CLINICAL HISTORY: possible stroke, ams COMPARISON: 03/28/2022, MRI of the head 05/06/2024 FINDINGS: CT HEAD: No abnormal density is seen. Ventricles are normal. There is no hemorrhage. No mass effect is seen. Bone windows show no evidence of fracture. IMPRESSION: No acute findings Reviewed, Interpreted and Dictated by Murtaza Sharp MD Transcribed by Gilda Maciel Authenticated and [facility]
--- NOTE | 2024-09-24 12:58 | CT_ITS ---
FINAL REPORT CLINICAL HISTORY: possible stroke COMPARISON: None FINDINGS: CTA HEAD TECHNIQUE: Thin section axial CT with contrast with 3D MIP reconstruction This study was performed with techniques to keep radiation doses as low as reasonably achievable, (ALARA). Individualized dose reduction techniques using automated exposure control or adjustment of mA and/or kV according to the patient's size were employed. FINDINGS: No aneurysm is seen. Major intracranial vessels are patent without significant stenosis. . There are large posterior communicating arteries present bilaterally, that are responsible for the majority of arterial flow into the posterior cerebral arteries. IMPRESSION: 1. No acute intracranial abnormality identified. 2. The majority of the flow to the posterior cerebral artery distributions is through large posterior communicating arteries anteriorly as described. This study was performed using automated techniques to achieve radiation exposure as low as reasonably achievable Reviewed, Interpreted and Dictated by Murtaza Sharp MD Transcribed by Gilda Maciel Authenticated and [facility]
--- NOTE | 2024-09-24 12:58 | CT_ITS ---
FINAL REPORT CLINICAL HISTORY: possible stroke FINDINGS: CT NECK ANGIO, WITHOUT AND WITH CONTRAST TECHNIQUE: Thin section axial CT with contrast with multiplanar 3D MIP reconstruction. This study was performed with techniques to keep radiation doses as low as reasonably achievable, (ALARA). Individualized dose reduction techniques using automated exposure control or adjustment of mA and/or kV according to the patient's size were employed. NASCET criteria and technique was utilized during interpretation. FINDINGS: Aortic arch: Arch shows no significant narrowing. Great vessel origins are widely patent. Right carotid: No significant stenosis is seen of the cervical common or internal carotid artery. Left carotid: No significant stenosis is seen of the cervical common or internal carotid artery. Vertebrals: The right vertebral artery is dominant. No significant stenosis is present. IMPRESSION: No significant stenosis of the cervical carotid arteries This study was performed using automated techniques to achieve radiation exposure as low as reasonably Reviewed, Interpreted and Dictated by Murtaza Sharp MD Transcribed by Gilda Maciel Authenticated and [facility]
--- OUTSIDE RECORDS SUMMARY | 2024-09-24 12:58 | XMS_ITS | Encounter Summary ---
Author Organization Healthcare Address [address] [place] [address] Care Team Providers Care Mainspring Winder And Oiler Name Role Phone Dru Giles MD Primary Care Provider [phone] Encounter Details Date Type Department Care Team (Late st Contact Info) Description 05/06/2024 Orders Only External Location [address] [place] [address] Provider, External Social History Tobacco Use Types Packs/Day Years Used Date Smoking Tobacco: Never Passive Smoke Exposure: Never Smokeless Tobacco: Never Alcohol Use Standard Drinks/Week Comments Never 0 (1 standard drink = 0.6 oz pur e alcohol) PHQ-2 Answer Date Recorded Patient Health Questionnaire-2 Score 0 04/19/2024 PHQ-9 Answer Date Recorded Patient Health Questionnaire-9 Score 3 01/26/2024 PHQ-2A Answer Date Recorded Patient Health Questionnaire-2 [...] Description 10/07/2024 1:20 PM EDT Office Visit [facility] [address], [address] [place] [address] Rebekah Aragon PA [address] [place] [address] 10/14/2024 12:40 PM EDT Appointment [facility] [address] [place] [address] Ari Barfield MD [address] [place] [address] 12/29/2024 1:30 PM EDT Office Visit [facility] Medicine Specialties [address], [address] [place] [address] Jesus Tanner MD [address] [place] [address] 02/28/2025 10:00 AM EST Office Visit [facility] Medicine Specialties [address], [address] [place] [address] Melyssa Encinas PA [address] [place] [address] 07/12/2025 11:00 AM EDT Ovarian Cancer Screening [facility] [address], 3rd [place] [address] documented as of this encounter Procedures Procedure Name Priority Date/Time Associated Diagnosis Comments MR NEURO OUTSIDE IMAGES 05/06/2024 1:09 PM EST documented in this encounter Results * MR NEURO OUTSIDE IMAGES (05/06/2024 1:09 PM EST) Anatomical Region Laterality Modality Magnetic Resonan ce 05/06/2024 1:09 PM EST us External Provider IMG MRI PROCEDURES Final Resul t documented in this encounter Visit Diagnoses Not on filedocumented in this encounter Additional Health Concerns Assessment Noted Time PHQ-9 Depression Total Score: 3 01/26/20 24 8:53 AM EST A fall risk assessment has been complete d for the patient 04/19/2024 2:33 PM EST A Body Mass Index follow-up plan has been documented for the patient 04/19/2024 2:57 PM EST documented as of this encounter Care Teams Mainspring Winder And Oiler Relationship Specialty Start Date End Date Dru Giles MD PCP - General 11/21/21 documented as of this encounter
--- OUTSIDE RECORDS SUMMARY | 2024-09-24 12:58 | XMS_ITS | Encounter Summary ---
Author Organization Healthcare Address [address] [place] [address] Care Team Providers Care Mortgage Loan Assistant Name Role Phone Dru Giles MD Primary Care Provider [phone] Encounter Details Date Type Department Care Team (Late st Contact Info) Description 08/20/2024 Telephone [facility] [address], [address] [place] [address] Jesus Tanner MD [address] [place] [address] Social History Tobacco Use Types [...] as of this encounter Functional Status * AUDIT-C Score Answer Date of Assessment Author 0 09/20/2024 1:07 PM Yara Mcintosh * Question Answer Date of Assessment Author Q1: How often do you have a drink containing alcohol? Never 09/20/2024 1:07 PM Rachel Mcintosh Q2: How many drinks containing alcohol do you have on a typical day when you are drinking? Patient does not drink 09/20/2024 1:07 PM Yara Mcintosh Q3: How often do you have six or more drinks on one occasion? Never 09/20/2024 1:07 PM Rachel Mcintosh * Over the past 2 weeks, how often have you been bothered by any of the following problems? Question Answer Date of Assessment Author Little interest or pleasure in doing things More than half the days 09/20/2024 1:12 PM Yara Mcintosh Feeling down, depressed, or hopeless More than half the days 09/20/2024 1:12 PM Yara Mcintosh Patient Health Questionnaire-2 Score 4 09/20/2024 1:12 PM Aleksandra Mcintosh * Question Answer Date of Assessment Author [...] usual. Nearly every day 09/20/2024 1:12 PM EDT Rachel Covarrubias Thoughts that you would be better off or hurting yourself in some way Not at all 09/20/2024 1:12 PM EDT Martin Covarrubias in R Patient Health Questionnaire-9 Score 20 09/20/2024 1:12 PM EDT Aleksandra Covarrubias R * If you checked off any problems on this questionnaire so far, Question Answer Date of Assessment Author How difficult have these problems made it for you to do your work, take care of things at home, or get along with other people? Somewhat difficult 09/20/2024 1:12 PM EDT Rachel Covarrubias R * How difficult have these problems made it for you to do your work, take care of things at home, or get along with other people? Answer Date of Assessment Author Somewhat difficult 09/20/2024 1:12 PM EDT Yara Del Cid documented as of this encounter Miscellaneous Notes * Telephone Encounter - Marysol Maloney - 08/20/2024 12:31 PM EDT Clinical Concern/Question Reason for Call: Pt is calling to say that her medication is making her sick and needs to speak with you Best contact number: [phone] (home) Optimal time of day to reach caller: ANYTIME Additional comments/information from caller: None Note: Please do not reply to this message. Follow-up communication and further actions as a result of this message need to be communicated with the patient directly, if the patient is not active onMyChart. If the patient is active on MyChart, they will receive notification of the communication/outcome via [email or web address]. documented in this encounter Plan of Treatment Upcoming Encounters Date Type Department Care Team (Late st Contact Info) Description 10/07/2024 1:20 PM EDT Office Visit [facility] Medicine Specialties [address], [address] [place] [phone] Rebekah Aragon PA [address] [place] [address] 10/14/2024 12:40 PM EDT Appointment [facility] [address] [place] [address] Ari Barfield MD [address] [place] [address] 12/29/2024 1:30 PM EDT Office Visit [facility] Medicine Specialties [address], [address] [place] [address] Jesus Tanner MD [address] [facility] [address] [place] [address] 02/28/2025 10:00 AM EST Office Visit [facility] Medicine Specialties [address], [address] [place] [address] Melyssa Encinas PA [address] [facility] [address] [place] [address] 07/12/2025 11:00 AM EDT Ovarian Cancer Screening [facility] Gynecology [address] [facility], 3rd [place] [address] documented as of this encounter Visit Diagnoses [...] documented as of this encounter Care Teams Mortgage Loan Assistant Relationship Specialty Start Date End Date Dru Giles MD PCP - General 11/21/21 documented as of this encounter
--- OUTSIDE RECORDS SUMMARY | 2024-09-24 12:58 | XMS_ITS | Encounter Summary ---
Author Organization Healthcare Address [address] [place] [address] Care Team Providers Care Test Inspection Engineer Name Role Phone Dru Giles MD Primary Care Provider [phone] Encounter Details Date Type Department Care Team (Latest Contact Info) Description 08/23/2024 Travel Social History Tobacco Use Types Packs/Day Years [...] 08/23/2024 9:43 AM EDT Heck, Tempest A Patient Health Questionnaire -2 Score 0 08/23/2024 9:43 AM EDT Heck, Tempest A * Question Answer Date of Assessment Author Trouble falling or staying asleep, or sleeping too much Not at all 08/23/2024 9:43 AM EDT Heck Tempest A Feeling tired or having santos le energy Not at all 08/23/2024 9:43 AM EDT Maria R Tempest A Poor appetite or overeating Not at all 08/23/2024 9: 43 AM EDT Heck Tempest A Feeling bad about yourself - [...] difficult at all 08/23/2024 9:43 AM EDT Franca Heckt A documented as of this encounter Plan of Treatment Upcoming Encounters Date Type Department Care Team (Late st Contact Info) Description 10/07/2024 1:20 PM EDT [facility] Visit [facility] [address], [address] [place] [address] Rebekah Aragon PA [address] [place] [address] 10/14/2024 12:40 PM EDT Appointment [facility] [address] [place] [address] Ari Barfield MD [address] [place] [address] 12/29/2024 1:30 PM EDT Office Visit [facility] Medicine Specialties [address], [address] [place] [address] Jesus Tanner MD [address] [place] [address] 02/28/2025 10:00 AM EST Office Visit [facility] Medicine Specialties [address], [address] [place] [address] Melyssa Encinas PA [address] [place] [address] 07/12/2025 11:00 AM EDT Ovarian Cancer Screening [facility] Gynecology [address] [facility], 3rd [place] [address] documented as of this encounter Visit Diagnoses [...] documented as of this encounter Care Teams Test Inspection Engineer Relationship Specialty Start Date End Date Dru Giles MD PCP - General 11/21/21 documented as of this encounter
--- OUTSIDE RECORDS SUMMARY | 2024-09-24 12:58 | XMS_ITS | Encounter Summary ---
Author Organization [facility] Address [address] [place] [address] Care Team Providers Care Log Washer Name Role Phone Dru Giles MD Primary Care Provider Encounter Details Date Type Department Care Team (Late st Contact Info) Description 08/27/2024 Telephone [facility] [address], [address] [place] [address] Rekha Rodas, RN [facility] Social History Tobacco Use Types Packs/Day Years [...] encounter Miscellaneous Notes * Telephone Encounter - Rekha Rodas RN - 08/27/2024 12:43 PM EDT I spoke with the patient and she said the whites of her eyes have turned blue. Patient is not having any vision changes. I asked the patient if she could upload photos of her eyes. Patient said she could do that. Patient has a follow up appointment on 09/20. documented in this encounter Plan of Treatment Upcoming Encounters Date Type Department Care Team (Late st Contact Info) Description 10/07/2024 1:20 PM EDT Office Visit [facility] Medicine Specialties [address], [address] [place] [address] Rebekah Aragon PA [address] [place] [address] 10/14/2024 12:40 PM EDT Appointment [facility] [address] [place] [address] Ari Barfield MD [address] [place] [address] 12/29/2024 1:30 PM EDT Office Visit [facility] Medicine [facility] [address], [address] [place] [address] Jesus Tanner MD [address] [place] [address] 02/28/2025 10:00 AM EST Office Visit [facility] [address] [facility] [address] [place] [address] Melyssa Encinas PA [address] [place] [address] 07/12/2025 11:00 AM EDT Ovarian Cancer Screening [facility] [address] [place] [address] documented as of this encounter Goals Goal Patient Goal Type Associated Problems Recent Progress Patient-Stated? Author Autogenerat ed Goal Care Plan Autogenerated Problem No Dana Ng documented as of this encounter Visit Diagnoses Not on filedocumented in this encounter Additional Health Concerns Active [...] documented as of this encounter Care Teams Log Washer Relationship Specialty Start Date End Date Dru Giles MD PCP - General 11/21/21 documented as of this encounter
--- OUTSIDE RECORDS SUMMARY | 2024-09-24 12:58 | XMS_ITS | Encounter Summary ---
Author Organization Healthcare Address [address] [place] [address] Care Team Providers Care Electronics Processing Supervisor Name Role Phone Dru Giles MD Primary Care Provider [phone] Encounter Details Date Type Department Care Team (Late st Contact Info) Description 09/21/2024 Telephone [place] [facility] [address], [address] [place] [address] Jesus Tanner MD [address] [place] [address] Social History Tobacco Use Types [...] encounter Miscellaneous Notes * Telephone Encounter - Donte Bailey RN - 09/23/2024 11:06 AM EDT Patient was contacted in alternate encounter by pharmacy. No further action needed. * Telephone Encounter - Agata Cadena - 09/21/2024 12:28 PM EDT Status Update Call #1 1st call regarding the status of the initial request. Best contact number: [phone] (home) Optimal time of day to reach caller: ANYTIME Additional comments/information from caller: Pt is following up on this. Please call. Note: Please do not reply to this message. Follow-up communication and further actions as a result of this message need to be communicated with the patient directly, if the patient is not active onMyChart. If the patient is active on MyChart, they will receive notification of the communication/outcome via MyChart. * Telephone Encounter - Agata Cadena - 09/21/2024 11:17 AM EDT Clinical Concern/Question Reason for Call: Pt is returning call. Please call. Best contact number: [phone] (home) Optimal time of day to reach caller: ANYTIME Additional comments/information from caller: Not Applicable Note: Please do not reply to this [...] Description 10/07/2024 1:20 PM EDT Office Visit [facility] Medicine Specialties [address], [address] [place] [address] Rebekah Aragon PA [address] [place] [address] 10/14/2024 12:40 PM EDT Appointment [facility] [address] [place] [address] Ari Barfield MD [address] [place] [address] 12/29/2024 1:30 PM EDT Office Visit [facility] [address], [address] [place] [address] Jesus Tanner MD [address] [place] [address] 02/28/2025 10:00 AM EST Office Visit [facility] [address], [address] [place] [address] Melyssa Encinas PA [address] [place] [address] 07/12/2025 11:00 AM EDT Ovarian Cancer Screening [facility] Gynecology [address] [facility], 3rd [place] [address] documented as of this encounter Goals Goal Patient Goal Type Associated Problems Recent Progress Patient-Stated? Author Autogenerat ed Goal Care Plan Autogenerated Problem No Dana Ng documented as of this encounter Visit Diagnoses Not on filedocumented in this encounter Additional Health Concerns Active Problems Noted Date Diagnosed Date Autogenerated Problem 08/24/2024 Assessment Noted Time PHQ-9 Depression Total Score: 20 07/ 025 1:12 PM EDT A fall risk assessment has been complete d for the patient 09/20/2024 1:12 PM EDT A Body Mass Index follow-up plan has been documented for the patient 09/20/2024 1:43 PM EDT documented as of this encounter Care Teams Electronics Processing Supervisor Relationship Specialty Start Date End Date Dru Giles MD PCP - General 11/21/21 documented as of this encounter
--- OUTSIDE RECORDS SUMMARY | 2024-09-24 12:58 | XMS_ITS | Encounter Summary ---
Author Organization Healthcare Address [address] [place] [id number] Care Team Providers Care Consumer Services Advisor Name Role Phone Dru Giles MD Primary Care Provider [phone] Encounter Details Date Type Department Care Team (Late st Contact Info) Description 08/23/2024 Results Follow-Up [facility] Medicine Specialties [address], [address] [place] [address] Melyssa Encinas PA [address] [place] [address] Social History Tobacco Use Types [...] as of this encounter Miscellaneous Notes * Result Encounter Note - Melyssa Encinas PA - 08/25/2024 9:02 AM EDT Your B12 and transferrin saturation are in good range. * Result Encounter Note - Melyssa Encinas PA - 08/23/2024 12:37 PM EDT I am forwarding labs to your Liver provider. I am adding iron and vitamin B12/folate levels to yourblood drawn today. Sometimes you can have a low hemoglobin due to having chronic health issues. I suspect this is the cause, but will check levels to be sure. documented in this encounter Plan of Treatment Upcoming Encounters Date Type Department Care Team (Late st Contact Info) Description 10/07/2024 1:20 PM EDT Office Visit [facility] Medicine Specialties [address], [address] [place] [address] Rebekah Aragon PA [address] [place] [address] 10/14/2024 12:40 PM EDT Appointment [facility] Endoscopy [address] [place] [address] Ari Barfield MD [address] [place] [address] 12/29/2024 1:30 PM EDT Office Visit [facility] [address], [address] [place] [address] Jesus Tanner MD [address] [place] [address] 02/28/2025 10:00 AM EST Office Visit [facility] [address], [facility] [place] [address] Melyssa Encinas PA [address] [place] [address] 07/12/2025 11:00 AM EDT Ovarian Cancer Screening [facility] Gynecology [address] [place] [address], 3rd [place] [address] documented as of this encounter Visit Diagnoses [...] documented as of this encounter Care Teams Consumer Services Advisor Relationship Specialty Start Date End Date Dru Giles MD PCP - General 11/21/21 documented as of this encounter
--- OUTSIDE RECORDS SUMMARY | 2024-09-24 12:58 | XMS_ITS | Clinical Summary ---
Author Organization [facility] Address [address] [place] [address] Care Team Providers Care Lathe Operator Name Role Phone Dru Giles MD Primary Care Provider [phone] Allergies Active Allergy Reactions Criticality Noted Date Comments Bee Venom Anaphylaxis High 04/03/2023 Compleat Other - please document in the comment field,Hives High 09/08/2023 Diphth-Acell Pertussis-Tetanus Other - please document in the comment field Low 09/08/2023 Dtap-Hepatitis B Recomb-Ipv Other - please document in the comment field Low 04/03/2023 Ucfy-Gcp-Sad-Hepatitis B Recmb Other - please document in the comment field Low 04/03/2023 Morphine Hives,Rash,Shortn ess of breath,Swelling High 07/06/2009 Converted from Ingredient Allergy: Morphine Other Hives High 02/12/2024 Converted from Generic Allergy: Tetanus-Diphtheria Toxoids ( Td Converted from Generic Allergy: Penicillin V Potassium Penicillin G Hives,Shortness of breath,Swelling High 07/06/2009 Converted from Ingredient Allergy: Penicillins Converted from Drug Class Allergy: Penicillins Penicillin V Potassium Other - please document in the comment field Low 04/03/2023 Penicillins Other - please document in the comment field Low 09/08/2023 Pork Allergy Hives Medium 05/08/2023 Shellfish Allergy Hives Medium 10/02/2020 Shellfish-Derived Products Hives High 09/08/2023 Sulfa Drugs Other - please document in the comment field Low 04/03/2023 Converted from Ingredient Allergy: SULFA (sulfonamide) Sulfacetamide Shortness of breath,Swelling,H guillermina High 07/06/2009 Sulfamethoxazole Other - please document in the comment field Low 04/03/2023 Converted from Generic Allergy: Sulfamethoxazole W/Trimethop ri Tetanus Antitoxin Other - please document in the comment field Low 09/08/2023 Tetanus Toxoid Rash Low 04/03/2023 Converted from Generic Allergy: Tetanus-Diphtheria Toxoids ( Td Tetanus-Diphtheria Toxoids Td Other - please document in the comment field Low 04/03/2023 Trimethoprim Itching Medium 04/03/2023 Converted from Generic Allergy: Sulfamethoxazole W/Trimethop ri Wheat Unknown - Patient states they do not know rxn details Low 04/01/2023 Wheat Hives High 04/03/2023 Yeast Hives High 04/03/2023 Medications ergocalciferol 1.25 MG (54880 UT) capsule Take 1 capsule (50,000 Units) by mouth 1 (one) time per week. 10/02/19 21 Active metoclopramide (Reglan) 5 MG tablet Take 1 tablet (5 mg) by mouth 1 (one) time each day in the morning. 09/12/19 21 Active metoprolol tartrate (Lopressor) 50 MG tablet Take 1 tablet (50 mg) by mouth 2 (two) times a day. 09/12/19 21 Active montelukast (Singulair) 10 MG tablet Take 1 tablet (10 mg) by mouth every night. 09/12/19 21 Active valsartan (Diovan) 320 MG tablet Take 1 tablet (320 mg) by mouth 1 (one) time each day in the morning. 09/09/19 21 Active simvastatin (Zocor) 20 MG tablet Take 1 tablet (20 mg) by mouth every night. 09/12/19 21 Active Multiple Vitamins-Minerals (EQ One Daily [employer]) tablet Take 1 tablet by mouth 1 (one) time each day. Active ferrous sulfate 325 (65 Fe) MG EC tabletIndications :Anemia, unspecified type TAKE 1 TABLET BY MOUTH 1 (ONE) TIME EACH DAY WITH BREAKFAST. DO NOT CRUSH, CHEW, OR SPLIT. 90 tablet 2 08/21/19 22 Active traMADol (Ultram) 50 MG tablet at night if needed. 08/28/19 22 Active ProAir HFA 108 (90 Base) MCG/ACT inhaler if needed. 09/27/19 22 Active Breo Ellipta 200-25 MCG/ACT aerosol powder 1 (one) time each day. 01/28/20 22 Active fluticasone (Flonase) 50 MCG/ACT nasal spray 1 spray 1 (one) time each day. 01/28/20 22 Active triamcinolone (Kenalog) 0.1 % oral paste if needed. 02/20/20 22 Active febuxostat (Uloric) 80 MG tabletIndications :Polyarticular gout Take 1 tablet (80 mg total) by mouth every night. 90 tablet 1 05/23/19 23 Active EPINEPHrine (AUVI-Q) 0.15 mg/0.15 mL IJ solution auto-injector injection Inject 0.0225 mL (0.0225 mg) into the muscle if needed for anaphylaxis. Active azelastine (Astelin) 0.1 % nasal spray 09/21/19 23 Active cetirizine (ZyrTEC) 10 MG tablet 02/06/20 23 Active Horizant 600 MG tablet controlled-releas e ER tablet 04/02/19 24 Active ketotifen (Zaditor) 0.035 % ophthalmic solution 02/19/20 23 Active Glucagon, rDNA, (Glucagon Emergency) 1 MG kit 01/10/20 23 Active meclizine (Antivert) 25 MG tablet 1 tablet (25 mg). 12/07/19 23 Active ondansetron (Zofran) 4 MG tablet 1 tablet (4 mg). 04/03/19 24 Active levocetirizine (Xyzal) 5 MG tablet 11/18/19 24 Active levoFLOXacin (Levaquin) 500 MG tablet 1 tablet (500 mg). 11/17/19 24 Active linaCLOtide (Linzess) 145 MCG capsuleIndication s:Chronic constipation Take 1 capsule (145 mcg) by mouth 1 (one) time each day before breakfast. 30 capsule 3 01/26/20 24 Active Additional Information Patient taking differently:145 mcg OralDaily PRN, Reported on 09/20/2024 Zegalogue 0.6 MG/0.6ML solution auto-injector USE DIRECTED NEEDED with epipen FOR anaphylactic reactions 06/08/19 25 Active desvenlafaxine (Pristiq) 100 MG 24 hr tablet Take 1 tablet by mouth daily. 06/02/19 25 Active lamoTRIgine (LaMICtal) 25 MG tablet 06/15/19 25 Active mirtazapine (Remeron) 15 MG tablet take 1 and 1/2 tablet by mouth at bedtime 06/08/19 25 Active triamcinolone (Kenalog) 0.1 % cream apply a SMALL AMOUNT topically TO THE affected area(s) TWICE DAILY FOR ITCHING OR RASH avoid USE ON face, groin, OR arm pits 08/06/19 25 Active lamoTRIgine (LaMICtal) 100 MG tablet Take 1 tablet by mouth daily. 08/04/19 25 Active desvenlafaxine succinate er (Pristiq) 25 MG 24 hr tablet Take 1 tablet by mouth daily. 08/10/19 25 Active predniSONE (Deltasone) 20 MG tablet TAKE ONE TABLET BY MOUTH TWICE DAILY FOR 5 DAYS, THEN TAKE ONE TABLET ONCE DAILY FOR 5 DAYS -- FINISH ALL MEDICINE -- --TAKE WITH FOOD-- 08/18/19 25 Active pantoprazole (Protonix) 40 MG EC tabletIndications :Gastroesophageal reflux disease, unspecified whether esophagitis present Take 1 tablet by mouth daily before breakfast. Do not crush, chew, or split. 90 tablet 3 08/24/19 25 Active methotrexate 2.5 MG tabletIndications :Inflammatory polyarthritis (CMS/HCC) Take 4 tablets (10 mg total) by mouth 1 time per week. Follow directions carefully, and ask to explain any part you do not understand. Take exactly as directed. 68 tablet 09/21/19 25 025 Active folic acid (Folvite) 1 MG tabletIndications :Inflammatory polyarthritis (CMS/HCC),High risk medication use Take 1 tablet by mouth daily. As long as you are on methotrexate 90 tablet 1 09/21/19 25 026 Active Adalimumab (Humira, 2 Pen,) 40 MG/0.4ML Auto-injector KitIndications:Se ronegative rheumatoid arthritis of multiple sites (CMS/HCC) Inject 1 each under the skin every 14 days. 0.8 each 3 09/21/19 25 Active methotrexate 2.5 MG tabletIndications :Inflammatory polyarthritis (CMS/HCC) Take 6 tablets (15 mg total) by mouth 1 (one) time per week. Follow directions carefully, and ask to explain any part you do not understand. Take exactly as directed. 24 tablet 3 06/15/19 25 025 Discontin ued(Reord er) folic acid (Folvite) 1 MG tabletIndications :Inflammatory polyarthritis (CMS/HCC),High risk medication use Take 1 tablet by mouth daily. 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 0 or higher 05/15/2021 Polyarticular gout 11/02/2020 Lupus arthritis 11/02/2020 On methotrexate therapy 11/02/2020 High risk medication use 11/02/2020 Positive KAMERON (antinuclear antibody) 11/02/2020 Inflammatory polyarthritis 10/02/2020 Polyarthralgia Resolved Problems Problem Noted Date Diagnosed Date Resolved Date Adjustment disorder with mix ed anxiety and depressed mood 04/19/2024 04/19/2024 Overview (04/19/2024): Martin's health issues cause many emotions to surface as she is trying to cope/adjust to the way her life is, or will be. Most of Martin's concerns are for the care and welfare of her autistic son, if something negative should happen to her. 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 Generalized anxiety disorder with panic attacks 04/19/2024 04/19/2024 Overview (04/19/2024): Martin reported having Anxiety and Panic attacks as a little girl, and she was known as a worry-wart. Currently, her anxious symptoms have been worse since March 2020 when she became very sick and now has several serious illnesses. Macular degeneration 04/19/2024 025 MDD (major depressive disord er), recurrent, with melancholic features 04/19/2024 04/19/2024 Overview (04/19/2024): Martin shared that there are several things that she has to do differently, or give up altogether because her health issues will not allow her to do the things anymore. This has caused Martin to be sad, irritable, scared, depressed, and at times, hopeless. Mild intermittent asthma 04/19/202412/2024 Moderate persistent asthma 04/19/2024 0 04/19/2024 Morbid obesity 04/19/2024 04/19/2024 Periodic limb movements of sleep 04/19/2024 04/19/2024 Overview (04/19/2024): Asymptomatic but obvious during most recent CPAP titration. History of iron deficiency anemia according to patient. 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 [address], [address] [place] [phone] Jesus Tanner MD Inflammatory polyarthritis ([facility]); High risk medication use 09/20/[address] [facility] [address] [place] [phone] Guille Escobar [facility] 09/20/2024 Travel 08/31/[address] [facility] [address], [address] [place] [address] Uan Gibbons, RN 08/27/2024 Telephone [facility] Special[facility] [address], [address] [place] [address] Rekha Rodas RN 08/27/2024 Telephone [facility] Special[facility] [address], [address] [place] [address] Jesus Tanner MD 08/24/[address] [facility] [address], [address] [place] [phone] Yesi Melgar 08/23/2024 10:00 AM EDT Office Visit [facility] [address] [place] [phone] Melyssa Encinas PA Gastroesophageal reflux disease, unspecified whether esophagitis present (Primary Dx); Chronic constipation; History of cirrhosis; Bilious vomiting with nausea 08/23/2024 Telephone [facility] [address] [place] [phone] Melyssa Encinas PA HCN - Patient Message (Returning Call /Returning call ) 08/23/2024 Results Follow-Up [facility] [address] [place] [phone] Melyssa Encinas PA 08/23/2024 Orders Only [facility] [address] [place] [address] Melyssa Encinas PA Normocytic anemia (Primary Dx) 08/23/2024 Travel 08/20/2024 Telephone [facility] [address] [place] [address] Rekha Rodas RN 08/20/2024 Telephone [facility] [address] [place] [address] Jesus Tanner MD 08/10/2024 Telephone [facility] [address] [place] [address] Yesi Melgar 08/03/2024 Telephone [facility] [address], [address] [place] [phone] Afua Melo, RN 07/28/2024 Results Follow-Up [facility] [address], [address] [place] [address] Afua Melo, RN 07/21/2024 11:00 AM EDT Office Visit [facility] [address], [address] [address] Marv Brown MD Rash (Primary Dx); Recurrent fever 07/21/2024 Travel 07/12/2024 Telephone [facility] [address] [place] [phone] Rebekah Aragon PA HCN - Patient Message 07/05/2024 10:30 AM EDT Office Visit [facility] [address], [address] [place] [phone] Marv Brown MD Recurrent fever (Primary Dx) 07/05/2024 Travel 07/02/2024 Results Follow-Up [facility] [address] [place] [address] Rebekah Aragon PA 06/30/2024 7:51 AM EDT - 06/30/2024 11:59 PM EDT Hospital Encounter [facility] [address] [place] [address] Cirrhosis of liver without ascites, unspecified hepatic cirrhosis type (CMS/HCC); Liver lesion Discharge Disposition: Home or Self Care 06/30/2024 Travel 06/25/2024 Travel from Last 3 Months Immunizations Immunization Administration Dates Next Due Influenza, injectable, quadr ivalent, preservative free 01/01/2023,01/04/2022,12/09/2020,11/29 Influenza, seasonal, injecta ble, preservative free 12/18/2023 Moderna COVID-19 Vaccine (Re d Cap) 12+ years 06/07/2020,05/10/2020 Pneumococcal Polysaccharide PPV23 02/19/2022 Zoster, Recombinant 05/08/2023,10/24/2022 Family History Medical History Relation Name Comments Heart defect Brother 1 Shemar Hypertension Brother 1 Shemar Pancreatic cancer Brother 1 Shemar Heart defect Brother 2 Les Hypertension Brother 2 Les Hypertension Brother 3 Shemar and Arnulfo Bishop Diabetes Father Pneumonia Maternal Grandfather No Known Problems Mother Autoimmune disease Mother's Sister Kayleen Heaton Relation Name Status Comments Brother 1 Shemar Brother 2 Les Alive Brother 3 Shemar and Arnulfo Bishop Alive Father Maternal Grandfather Maternal Grandmother Mother Alive Mother's Sister Kayleen Heaton Alive Paternal Grandmother Social History Tobacco Use Types Packs/Day Years Used Date Smoking Tobacco: Never Passive Smoke Exposure: Never Smokeless Tobacco: Never Tobacco Cessation:Counseling Given: Not Answered Alcohol Use Standard Drinks/Week Comments Not Currently [...] on file Sexual Orientation Not on file Last Filed Vital Signs Vital Sign Reading Time Taken Comments Blood Pressure 115/55 09/20/2024 1:04 PM EDT Pulse 70 09/20/2024 1:04 PM EDT Temperature 36.6 C (97.8 F) 09/20/2024 1:04 PM EDT Respiratory Rate 16 06/14/2024 3:56 PM EDT Oxygen Saturation 95% 09/20/2024 1:04 PM EDT Inhaled Oxygen Concentration - - Weight 136 kg (299 lb 13.2 oz) 09/20/2024 1:04 P M EDT Height 170.2 cm (5' 7 ) 09/20/2024 1:04 PM EDT Body Mass Index 46.96 09/20/2024 1:04 PM EDT Plan of Treatment Upcoming Encounters Date Type Department Care Team (Late st Contact Info) Description 10/07/2024 1:20 PM EDT Office Visit [facility] [address] [place] [phone] Rebekah Aragon PA [address] [place] [address] 10/14/2024 12:40 PM EDT Appointment [facility] [address] [place] [phone] Ari Barfield MD [address] [place] [address] 12/29/2024 1:30 PM EDT Office Visit [facility] [address] [place] [phone] Jesus Tanner MD [address] [place] [phone] 02/28/2025 10:00 AM EST [facility] [address] [place] [address] Melyssa Encinas, PA [address] [place] [address] 07/12/2025 11:00 AM EDT Ovarian Cancer Screening [facility] [address] [place] [address] Health Maintenance Due Date Last Done Comments [facility]-Medicare Annual Wellness (AWV) 1965 [facility]-Infant/Child/Adol SDOH Screenings 1965 [facility]- SDOH Screenings 1983 [facility]-Adult SDOH Screenings 1983 [facility]-DTaP,Tdap,and Td Vaccines (1 - Tdap) 1984 [facility]-Hepatitis A Vaccines (1 of 2 - Risk 2-dose series) 1984 [facility]-Hepatitis B Vaccines (1 of 3 - 19+ 3-dose series) 1984 [facility]-Pap Smear 1986 [facility]-Cervical Cancer Screening 1995 [facility]-HPV/Cotest 1995 CT Colonography 2010 FIT-DNA 2010 FIT 2010 FOBT 2010 Sigmoidoscopy 2010 [facility]-Breast Cancer Screening 2015 [facility]-Pneumococcal Vaccine: 50+ Years (2 of 2 - PCV) 02/19/2023 02/19/2022 [id number] Vaccine ( - 2023- season) 2023 12/12/2021, 01/03/2021, 06/07/2020, Additional history exists [facility]-Influenza Vaccine (#1) 11/08/202412/17, 01/01/2023, 01/04/2022, Additional history exists [facility]-Depression Screening 09/20/2025 09/20/2024, 09/07 Colonoscopy 06/01/2031 05/31/2021 [facility]-Colorectal Cancer Screening 06/01/2031 [facility]-Diabetes: Hemoglobin A1C Discontinued 03/28/2022, 10/06/2020 [facility]-Zoster Vaccines Completed 05/08/2023, [facility]-Hepatitis C Screening Completed 2024, 03/28/2022, 08/24/2021, Additional history exists [facility]-HIV Screening Completed 05/27/2024, 10/02/2020 [facility]-Obesity Intervention Completed 025, 08/23/2024, 07/21/2024, Additional history exists HPV Vaccines Aged Out No longer eligi ble based on patient's age to complete this topic [facility]-HIB Vaccines Aged Out No longer e ligible based on patient's age to complete this topic [facility]-IPV Vaccines Aged Out No longer e ligible based on patient's age to complete this topic [facility]-Rotavirus Vaccines Aged Out No lo nger eligible based on patient's age to complete this topic Goals Goal Patient Goal Type Associated Problems Recent Progress Patient-Stated? Author Autogenerat ed Goal Care Plan Autogenerated Problem No Dana Ng Procedures Procedure Name Priority Date/Time Associated Diagnosis Comments CBC WITH AUTO DIFFERENTIAL Routine 09/20/2024 2:05 PM EDT Inflammatory polyarthritis (CMS/HCC) COMPREHENSIVE METABOLIC PANEL, PLASMA Routine 09/20/2024 2:05 PM EDT Inflammatory polyarthritis (CMS/HCC) SEDIMENTATION RATE, AUTOMATED Routine 09/20/2024 2:05 PM EDT Inflammatory polyarthritis (CMS/HCC) C-REACTIVE PROTEIN, PLASMA Routine 09/20/2024 2:05 PM EDT Inflammatory polyarthritis (CMS/HCC) FOLATE, SERUM Add-On 08/23/2024 10:38 AM EDT Normocytic anemia IRON & TOTAL IRON BINDING CAPACITY, PLASMA (INCLUDES TRANSFERRIN) Add-On 08/23/2024 10:38 AM EDT Normocytic anemia VITAMIN B12, SERUM Add-On 08/23/2024 10 :38 AM EDT Normocytic anemia FERRITIN, SERUM Routine 08/23/2024 10:38 AM EDT Recurrent fever SEDIMENTATION RATE, AUTOMATED Routine 08/23/2024 10:38 AM EDT Recurrent fever C-REACTIVE PROTEIN, PLASMA Routine 08/23/2024 10:38 AM EDT Recurrent fever COMPREHENSIVE METABOLIC PANEL, PLASMA Routine 08/23/2024 10:38 AM EDT Gastroesophageal reflux disease, unspecified whether esophagitis present Chronic constipation History of cirrhosis CBC WITH AUTO DIFFERENTIAL Routine 08/23/2024 10:38 AM EDT Gastroesophageal reflux disease, unspecified whether esophagitis present Chronic constipation History of cirrhosis PROTHROMBIN TIME(PT) / INR Routine 08/23/2024 10:38 AM EDT History of cirrhosis ALPHA FETOPROTEIN, SERUM Routine 08/23/2024 10:38 AM EDT History of cirrhosis SURGICAL PATHOLOGY EXAM Routine 07/22/19 11:54 AM EDT Recurrent fever Rash LIPASE, PLASMA Routine 06/30/2024 9:52 AM EDT Recurrent fever CRYPTOCOCCAL ANTIGEN, SERUM Routine 06/30/2024 9:52 AM EDT Recurrent fever MR ABDOMEN W AND WO IV CONTRAST Routine 06/30/2024 9:12 AM EDT Cirrhosis of liver without ascites, unspecified hepatic cirrhosis type (CMS/HCC) Liver lesion HIV 1/2 ANTIBODY/ANTIGEN SCREEN WITH REFLEX TO HIV I/II DIFFERENTIATION Routine 05/27/2024 1:38 PM EDT Recurrent fever HEPATITIS C ANTIBODY W/REFLEX TO HCV QUANT PCR Routine 04/19/2024 3:28 PM EST Recurrent fever HEMOGLOBIN A1C Routine 03/28/2022 12:04 PM EST Fatty liver Elevated liver enzymes COLONOSCOPY Routine 05/31/2021 8:36 AM EDT Diarrhea, unspecified type from Last 3 Months or Most Recently Relevant to Health Maintenance Results * (ABNORMAL) Sedimentation Rate, Automated (09/20/2024 2:05 PM EDT) Only the most recent of2 resultswithin the time period is included. Sedimentation Rate 58(H) <30 mm/hr 2024 3:19 PM EDT [facility] Blood Venous blood specimen / Unknown Venipuncture / Unknown 09/20/2024 2:05 PM EDT 09/20/2024 2:05 PM EDT us Jesus Tanner MD LAB BLOOD ORDERABLES Final Re sult [facility] [address] [place] [address] * (ABNORMAL) CBC and differential (09/20/2024 2:05 PM EDT) Only the most recent of2 resultswithin the time period is included. WBC Count 8.34 3.70 - 10.30 10*3/uL LAB HEMATOLOGY METHOD 09/20/2024 4:01 PM EDT [facility] RBC Count 3.64(L) 3.90 - 5.20 10*6/uL LAB HEMATOLOGY METHOD 09/20/2024 4:01 PM EDT [facility] HGB 11.0(L) 11.2 - 15.7 g/dL LAB HEMATOLOGY METHOD 09/20/2024 4:01 PM EDT [facility] HCT 35.9 34.0 - 45.0 % LAB HEMATOLOGY METHOD 09/20/2024 4:01 PM EDT [facility] Platelet Count 163 155 - 369 10*3/uL LAB HEMATOLOGY METHOD 09/20/2024 4:01 PM EDT [facility] MCV 99(H) 79 - 98 fL LAB HEMATOLOGY METHOD 09/20/2024 4:01 PM EDT [facility] MCH 30.2 26.0 - 32.0 pg LAB HEMATOLOGY METHOD 09/20/2024 4:01 PM EDT [facility] MCHC 30.6(L) 30.7 - 35.5 g/dL LAB HEMATOLOGY METHOD 09/20/2024 4:01 PM EDT [facility] RDW 16.0(H) 11.5 - 14.5 % LAB HEMATOLOGY METHOD 09/20/2024 4:01 PM EDT [facility] MPV 10.7 8.8 - 12.5 fL LAB HEMATOLOGY METHOD 09/20/2024 4:01 PM EDT [facility] nRBC 0.0 <=0.0 per 100 WBCs LAB HEMATOLOGY METHOD 09/20/2024 4:01 PM EDT [facility] Differential Type Automated LAB HEMATOLOGY METHOD 09/20/2024 4:01 PM EDT [facility] Neutrophils % 68 % LAB HEMATOLOGY METHOD 09/20/2024 4:01 PM EDT [facility] Lymphocytes % 25 % LAB HEMATOLOGY METHOD 09/20/2024 4:01 PM EDT [facility] Monocytes % 1 % LAB HEMATOLOGY METHOD 09/20/2024 4:01 PM EDT [facility] Eosinophils % 5 % LAB HEMATOLOGY METHOD 09/20/2024 4:01 PM EDT [facility] Basophils % 1 % LAB HEMATOLOGY METHOD 09/20/2024 4:01 PM EDT [facility] Immature Granulocytes % 0 % LAB HEMATOLOGY METHOD 09/20/2024 4:01 PM EDT [facility] Neutrophils Absolute 5.55 1.60 - 6.10 10*3/uL LAB HEMATOLOGY METHOD 09/20/2024 4:01 PM EDT [facility] Lymphocytes Absolute 2.12 1.20 - 3.90 10*3/uL LAB HEMATOLOGY METHOD 09/20/2024 4:01 PM EDT [facility] Monocytes Absolute 0.12(L) 0.30 - 0.90 10*3/uL LAB HEMATOLOGY METHOD 09/20/2024 4:01 PM EDT [facility] Eosinophils Absolute 0.44 0.00 - 0.50 10*3/uL LAB HEMATOLOGY METHOD 09/20/2024 4:01 PM EDT [facility] Basophils Absolute 0.08 0.00 - 0.10 10*3/uL LAB HEMATOLOGY METHOD 09/20/2024 4:01 PM EDT [facility] Immature Granulocytes Absolute 0.03 0.00 - 0.06 10*3/uL LAB HEMATOLOGY METHOD 09/20/2024 4:01 PM EDT [facility] Blood Venous blood specimen / Unknown Venipuncture / Unknown 09/20/2024 2:05 PM EDT 09/20/2024 2:05 PM EDT Narrative [facility] - 09/20/2024 4:01 PM EDT Therapeutic decision making should be based on absolute values, rather than percentages. Jesus Tanner MD LAB BLOOD ORDERABLES Final Re sult Performing Organization Address City/[facility] Co de Phone Number [facility] [address] [place] [address] * C-reactive protein (09/20/2024 2:05 PM EDT) Only the most recent of2 resultswithin the time period is included. CRP, Plasma 6.7 <=8.0 mg/L 09/20/2024 3:14 PM EDT [facility] Blood Venous blood specimen / Unknown Venipuncture / Unknown 09/20/2024 2:05 PM EDT 09/20/2024 2:05 PM EDT Narrative [facility] - 09/20/2024 3:14 PM EDT This CRP test is appropriate for assessment of infection, systemic inflammation and/or tissue injury. To assess cardiovascular disease risk order high sensitivity CRP (CRPH). Jesus Tanner MD LAB BLOOD ORDERABLES Final Re sult Performing Organization Address City/[facility]/ZIP Co de Phone Number [facility] [address] [place] [address] * (ABNORMAL) Comprehensive metabolic panel (09/20/2024 2:05 PM EDT) Only the most recent of2 resultswithin the time period is included. [facility] Glucose, Plasma 117(H) 74 - 99 mg/dL 09/20/2024 3:14 PM EDT [facility] BUN, Plasma 13 7 - 21 mg/dL 09/20/2024 3:14 PM EDT [facility] Creatinine, Plasma 0.91 0.60 - 1.10 mg/dL 09/20/2024 3:14 PM EDT [facility] BUN/Creatinine Ratio 09/20/2024 3:14 PM EDT [facility] Sodium, Plasma 140 136 - 145 mmol/L 09/20/2024 3:14 PM EDT [facility] Potassium, Plasma 3.8 3.6 - 4.9 mmol/L 09/20/2024 3:14 PM EDT [facility] Chloride, Plasma 106 97 - 107 mmol/L 09/20/2024 3:14 PM EDT [facility] CO2, Plasma 22 22 - 29 mmol/L 09/20/2024 3:14 PM EDT [facility] Anion Gap 12 6 - 16 mmol/L 09/20/2024 3:14 PM EDT [facility] Total Calcium, Plasma 9.3 8.9 - 10.2 mg/dL 09/20/2024 3:14 PM EDT [facility] Total Protein 7.5 6.3 - 7.9 g/dL 09/20/2024 3:14 PM EDT [facility] Albumin, Plasma 3.7 3.5 - 5.2 g/dL 09/20/2024 3:14 PM EDT [facility] AST, Plasma 54(H) 10 - 35 U/L 09/20/2024 3:14 PM EDT [facility] ALT, Plasma 30 10 - 35 U/L 09/20/2024 3:14 PM EDT [facility] Alkaline Phosphatase, Plasma 180(H) 46 - 142 U/L 09/20/2024 3:14 PM EDT [facility] Total Bilirubin, Plasma 1.7(H) 0.2 - 1.1 mg/dL 09/20/2024 3:14 PM EDT [facility] eGFRcr 72.8 mL/min/1.7 3m*2 09/20/2024 3:14 PM EDT [facility] Comment:Reported eGFRcr in m L/min/1.73m2 is based the CKD-EPI 2020 equation that does not use a race coefficient. Blood Venous blood specimen / Unknown Venipuncture / Unknown 09/20/2024 2:05 PM EDT 09/20/2024 2:05 PM EDT Jesus Tanner MD LAB BLOOD ORDERABLES Final Re sult Performing Organization Address [facility]/ZIP Co de Phone Number [facility] [address] [place] [address] * (ABNORMAL) Alpha Fetoprotein, Serum (08/23/2024 10:38 AM EDT) Alpha Fetoprotein, Serum 10.5(H) <10.0 ng/mL 08/23/2024 11:54 AM EDT [facility] Blood Venous blood specimen / Unknown Venipuncture / Unknown 08/23/2024 10:38 AM EDT 08/23/2024 10:39 AM EDT Narrative [facility] - 08/23/2024 11:54 AM EDT Performed by Brandi electrochemiluminescent immunoassay which is traceable to the 1st AFP IRP WHO Reference standard 72/255. Results obtained with different test methods or kits cannot be used interchangeably. Melyssa TOTH LAB BLOOD ORDERABLES Final Resu lt Performing Organization Address [facility]/ZIP Co de Phone Number [facility] [address] [place] [address] * (ABNORMAL) Iron & Total Iron Binding Capacity, Plasma (Includes Transferrin) (08/23/2024 10:38 AM EDT) Iron, Plasma 43 30 - 160 ug/dL 08/23/2024 1:07 PM EDT [facility] Transferrin, Plasma 187(L) 200 - 360 mg/dL 08/23/2024 1:07 PM EDT [facility] Total Iron Binding Capacity, Plasma 234(L) 240 - 450 ug/mL 08/23/2024 1:07 PM EDT [facility] Transferrin Saturation 18 14 - 50 % 08/23/2024 1:07 PM EDT [facility] Blood Venous blood specimen / Unknown Venipuncture / Unknown 08/23/2024 10:38 AM EDT 08/23/2024 10:39 AM EDT Melyssa TOTH LAB BLOOD ORDERABLES Final Resu lt Performing Organization Address City/[facility]/ZIP Co de Phone Number [facility] [address] [place] [address] * (ABNORMAL) Protime-INR (08/23/2024 10:38 AM EDT) Prothrombin Time 17.7(H) 12.0 - 14.3 sec LAB COAGULATION METHOD 08/23/2024 1:05 PM EDT [facility] INR 1.4(H) 0.9 - 1.1 LAB COAGULATION METHOD 08/23/2024 1:05 PM EDT [facility] Blood Venous blood specimen / Unknown Venipuncture / Unknown 08/23/2024 10:38 AM EDT 08/23/2024 10:39 AM EDT Narrative [facility] - 08/23/2024 1:05 PM EDT OPTIMAL INR RANGES FOR PATIENT ON ORAL ANTICOAGULANT THERAPY Prevention of venous thromboembolism INR 2.0 to 3.0 In patients with heart disease: Atrial fibrillation INR 2.0 to 3.0 Valvular heart disease INR 2.0 to 3.0 Tissue heart valves INR 2.0 to 3.0 Mechanical prosthetic valves INR 2.5 to 3.5 Prevention of recurrent OK INR 2.5 to 3.5 Melyssa TOTH LAB BLOOD ORDERABLES Final Resu lt Performing Organization Address City/[facility]/ZIP Co de Phone Number [facility] [address] [place] [address] * Folate (08/23/2024 10:38 AM EDT) Folate, Serum >20.0 >4.6 ng/mL 08/23/2024 1:31 PM EDT [facility] Blood Venous blood specimen / Unknown Venipuncture / Unknown 08/23/2024 10:38 AM EDT 08/23/2024 10:39 AM EDT Melyssa TOTH LAB BLOOD ORDERABLES Final Resu lt Performing Organization Address [facility]/ZIP Co de Phone Number [facility] [address] [place] [address] * (ABNORMAL) Ferritin (08/23/2024 10:38 AM EDT) Ferritin, Serum 456(H) 13 - 150 ng/mL 08/23/2024 11:54 AM EDT [facility] Blood Venous blood specimen / Unknown Venipuncture / Unknown 08/23/2024 10:38 AM EDT 08/23/2024 10:39 AM EDT Jesus Tanner MD LAB BLOOD ORDERABLES Final Re sult Performing Organization Address City/[facility]/[place] [address] * Vitamin B12 (08/23/2024 10:38 AM EDT) Vitamin B12, Serum 762 210 - 1,033 pg/mL 08/23/2024 1:31 PM EDT [facility] Blood Venous blood specimen / Unknown Venipuncture / Unknown 08/23/2024 10:38 AM EDT 08/23/2024 10:39 AM EDT Melyssa TOTH LAB BLOOD ORDERABLES Final Resu lt Performing Organization Address City/[facility]/[place] [address] * Surgical Pathology Exam (07/21/2024 11:54 AM EDT) Case Report Surgical Pathology Case: [id number] Authorizing Provider: Marv Brown MD Collected: 07/21/2024 1154 Ordering Location: [facility] Received: 07/21/2024 1205 [facility] Pathologist: Florecita Leon MD Specimen: Leg, Left, posteromedial calf 07/26/2024 3:53 PM EDT [facility] Correction History Dermatopathology consultation obtained. 07/26/2024 3:53 PM EDT [facility] Comment:These results have b een appended to a previously final verified report. Final Diagnosis SKIN, POSTEROMEDIAL CALF, PUNCH BIOPSY: PENDING DERMATOPATHOLOGY CONSULTATION. PER DR. MARTINS [id number]: POSTEROMEDIAL CALF: - MILD SUPERFICIAL DERMATITIS (SEE COMMENT). COMMENT: Vasculitis is not seen. Interface change is not seen. These changes are not diagnostic. The history was reviewed. 07/26/2024 3:53 PM EDT [facility] Amendment electronically signed by Florecita Leon MD on 07/26/2024 at 1553 EDT at 0932 EDT Comment:Corrected result: Pr eviously reported as [Previous value contains rich text formatting which cannot be displayed here] (see Result History) on 07/23/2024 at 0932 EDT. Comment This amended report reflects the expert opinion of Dr. Renato Martins. Dr. Martins's entire consultation report ([id number]) can be viewed as a scanned document in [employer]. 07/26/2024 3:53 PM EDT [facility] Comment:These results have b een appended to a previously final verified report. Clinical Information Seronegative arthritis, recurrent fevers & episodic bilater LE rash w/ red non blanching spots (not clearly related to fevers). Infectious work up negative to date. ?Vasculitis vs benign findings A68.9 - Recurrent fever [ICD-10-CM] R21 - Rash [ICD-10-CM] 07/26/2024 3:53 PM EDT [facility] Microscopic Description PER DR. MARTINS [id number]: The epidermis is uninflamed. In the superficial dermis is a mild perivascular lymphocytic inflammatory infiltrate. 07/26/2024 3:53 PM EDT [facility] Comment:These results have b een appended to a previously final verified report. Gross Description A. POSTEROMEDIAL CALF Received in formalin labeled posteromedial calf , is 1 white-sesay skin punch measuring 0.5 x 0.5 x 0.4 cm. Specimen is entirely submitted in cassette A1. Cold Time: 0 Mariela Isidro Florestey 07/26/2024 3:53 PM EDT [facility] Tissue Structure of left lower limb / Unknown Non-blood Collection / Unknown 07/21/2024 11:54 AM EDT 07/21/2024 12:05 PM EDT Marv Brown MD LAB PATHOLOGY ORDERABLES Edite d Result - Final Performing Organization Address [facility]/[place] [address] * Cryptococcal Ag, Serum (06/30/2024 9:52 AM EDT) Cryptococcal Antigen Result (Serum) Negative Negative 06/30/2024 2:18 PM EDT [facility] Blood Venous blood specimen / Unknown Venipuncture / Unknown 06/30/2024 9:52 AM EDT 06/30/2024 9:52 AM EDT Marv Brown MD LAB MICROBIOLOGY - GENERAL ORD ERABLES Final Result Performing Organization Address [facility] [place] [address] * Lipase (06/30/2024 9:52 AM EDT) Lipase, Plasma 62 19 - 63 U/L 06/30/2024 11:53 AM EDT [facility] Blood Venous blood specimen / Unknown Venipuncture / Unknown 06/30/2024 9:52 AM EDT 06/30/2024 9:52 AM EDT Marv Brown MD LAB BLOOD ORDERABLES Final Res ult Performing Organization Address City/[facility]/ZIP Co de Phone Number [facility] [address] [place] [address] * MR Abdomen w and wo IV Contrast (06/30/2024 9:12 AM EDT) Anatomical Region Laterality Modality Abdomen Magnetic Resonan ce Impressions 06/30/2024 9:38 AM EDT Cirrhotic liver. Focal Hepatic Observations: LI-RADS Negative Extrahepatic Findings: Mild splenomegaly and a small amount of ascites. CRITICAL RESULT: No. COMMUNICATION: Per this written report. LI-RADS M = Probably or definitely malignant but not HCC specific LI-RADS TI-V = Definitely tumor in vein LI-RADS 5 = Definitely hepatocellular carcinoma (concordant with OPTN*) LI-RADS 4 = Probably hepatocellular carcinoma LI-RADS 3 = Intermediate probability for hepatocellular carcinoma LI-RADS 2 = Probably benign LI-RADS 1 = Definitely benign LI-RADS NC = Not categorized secondary to image degradation or omission LI-RADS TR Nonviable - Treated, probably or definitely not viable LI-RADS TR Equivocal - Treated, equivocally viable LI-RADS TR Viable - Treated, probably or definitely viable LI-RADS TR Nonevaluable - Cannot be categorized due to image degradation or omission NOTE: LI-RADS categories should be interpreted in the context of other available data, such as biomarkers and the patient's prior probability of developing or having hepatocellular carcinoma. The LI-RADS classification of liver lesions has been adopted to standardize CT and MRI scan reporting in patients at risk for hepatocellular carcinoma. CT/MRI LI- RADS and US LI-RADS are consistent with and integrated into the [place] Association for the Study of Liver Diseases (AASLD) 2018 hepatocellular carcinoma (HCC) clinical practice guidance. LI-RADS criteria and documentation are available online at www.acr.org/Quality-Safety/Resources/LIRADS. This report utilizes LI-RADS version 2018. *OPTN and LI-RADS criteria for definite HCC are identical except for: 10-19 mm observations with nonrim APHE + nonperipheral washout but without enhancing capsule or threshold growth. Implication: Some LR-5 observations do not count as OPTN 5. Drafted by Jerzy Mantilla MD on 06/30/2024 9:31 AM Final report signed by Jerzy Mantilla MD on 06/30/2024 9:38 AM Narrative 06/30/2024 9:38 AM EDT CLINICAL INDICATION: Risk for hepatocellular carcinoma. Liver lesion, > 1cm TECHNIQUE: MR imaging of the abdomen was performed without and with intravenous contrast material using the following sequences: coronal single shot T2 weighted fast spin echo, axial T2 weighted sequences with and without fat saturation, axial dual phase gradient echo, pre and dynamic postcontrast 3-D T1 weighted gradient echo with fat saturation (axial and coronal) and axial diffusion. 14.7 mL of Elucirem was administered. Examination meets LI-RADS technical recommendations. Yes COMPARISON: MRI from December 22, 2023 FINDINGS: Liver: The liver demonstrates cirrhotic morphology. No discrete suspicious focal lesion. Hepatic Vasculature: Hepatic arterial anatomy is standard. The portal veins are patent. Focal Hepatic Observations: Extrahepatic Findings: Enlarged spleen is noted measuring 16.4 cm. No pancreatic mass. No suspicious adrenal findings. No hydronephrosis. No suspicious renal mass. Small left renal cyst is noted. Borderline enlarged katy hepatis lymph nodes, likely reactive. Small amount of ascites. Small right pleural effusion. Procedure Note Jerzy Mantilla MD - 06/30/2024 CLINICAL INDICATION: Risk for hepatocellular carcinoma. Liver lesion, > 1cm TECHNIQUE: MR imaging of the abdomen was performed without and with intravenouscontrast material using the following sequences: coronal single shot [id number] fast spin echo, axial T2 weighted sequences with and without fatsaturation, axial dual phase gradient echo, pre and dynamic postcontrast3-D T1 weighted gradient echo with fat saturation (axial and coronal) andaxial diffusion. 14.7 mL of Elucirem was administered. Examination meets LI-RADS technical recommendations. Yes COMPARISON: MRI from December 22, 2023 FINDINGS: Liver: The liver demonstrates cirrhotic morphology. No discrete suspiciousfocal lesion. Hepatic Vasculature: Hepatic arterial anatomy is standard. The portalveins are patent. Focal Hepatic Observations: Extrahepatic Findings: Enlarged spleen is noted measuring 16.4 cm. No pancreatic mass. Nosuspicious adrenal findings. No hydronephrosis. No suspicious renal mass.Small left renal cyst is noted. Borderline enlarged katy hepatis lymph nodes, likely reactive. Small amount of ascites. Small right pleural effusion. IMPRESSION: Cirrhotic liver. Focal Hepatic Observations: LI-RADS Negative Extrahepatic Findings: Mild splenomegaly and a small amount of ascites. CRITICAL RESULT: No. COMMUNICATION: Per this written report. LI-RADS M = Probably or definitely malignant but not HCC specific LI-RADS TI-V = Definitely tumor in vein LI-RADS 5 = Definitely hepatocellular carcinoma (concordant with OPTN*) LI-RADS 4 = Probably hepatocellular carcinoma LI-RADS 3 = Intermediate probability for hepatocellular carcinoma LI-RADS 2 = Probably benign LI-RADS 1 = Definitely benign LI-RADS NC = Not categorized secondary to image degradation or omission LI-RADS TR Nonviable - Treated, probably or definitely not viable LI-RADS TR Equivocal - Treated, equivocally viable LI-RADS TR Viable - Treated, probably or definitely viable LI-RADS TR Nonevaluable - Cannot be categorized due to image degradationor omission NOTE: LI-RADS categories should be interpreted in the context of otheravailable data, such as biomarkers and the patient's prior probability ofdeveloping or having hepatocellular carcinoma. The LI-RADS classificationof liver lesions has been adopted to standardize CT and MRI scan reportingin patients at risk for hepatocellular carcinoma. CT/MRI LI-RADS and USLI-RADS are consistent with and integrated into the [place] Associationfor the Study of Liver Diseases (AASLD) 2018 hepatocellular carcinoma(HCC) clinical practice guidance. LI-RADS criteria and documentation areavailable online at www.acr.org/Quality-Safety/Resources/LIRADS. Thisreport utilizes LI-RADS version 2018. *OPTN and LI-RADS criteria for definite HCC are identical except for:10-19 mm observations with nonrim APHE + nonperipheral washout butwithout enhancing capsule or threshold growth. Implication: Some LR-5observations do not count as OPTN 5. Drafted by Jerzy Mantilla MD on 06/30/2024 9:31 AM Final report signed by Jerzy Matnilla MD on 06/30/2024 9:38 AM Rebekah TOTH [facility] MRI PROCEDURES Final Result * HIV 1 & 2 Antibody/Antigen Screen (05/27/2024 1:38 PM EDT) HIV 1 & 2 Antibody/Antigen Screen Non Reactive Non Reactive 05/27/2024 2:56 PM EDT [email or web address] Comment:Screening for HIV 1 & 2 antibodies, and P24 antigen is NONREACTIVE. No confirmatory testing is required. Blood Venous blood specimen / Unknown Venipuncture / Unknown 05/27/2024 1:38 PM EDT 05/27/2024 1:41 PM EDT Marv Brown MD LAB BLOOD ORDERABLES Final Res ult Performing Organization Address [facility] de Phone Number [facility] [address] [place] [address] * Hepatitis C Antibody (04/19/2024 3:28 PM EST) Hepatitis C Antibody Negative Negative 04/19/2024 5:40 PM EST [facility] Blood Venous blood specimen / Unknown Venipuncture / Unknown 04/19/2024 3:28 PM EST 04/19/2024 3:29 PM EST Jesus Tanner MD LAB BLOOD ORDERABLES Final Re sult Performing Organization Address City/[facility] de Phone Number [facility] [address] [place] [address] * Hemoglobin A1c (03/28/2022 12:04 PM EST) Hemoglobin A1c 5.5 <5.7 % 03/28/2022 2:10 PM EST [facility] Blood Venous blood specimen / Unknown Venipuncture / Unknown 03/28/2022 12:04 PM EST 03/28/2022 12:05 PM EST Narrative [facility] - 03/28/2022 2:10 PM EST HA1C Interpretive Data: Diagnosis of Diabetes: Diabetic > or = 6.5% Pre-diabetic 5.7 to 6.4% Non-diabetic < or = 5.6% Glycemic Targets for Type I and Type II Diabetics: Non- Adults <7.0% Adults <6.0% Children and Adolescents <7.5% Source: [place] [employer]. Standards of medical care in diabetes,2017. Diabetes Care.2017:40 (suppl 1):S1-S135. HbA1c assay performed by an ion-exchange chromatography method that is certified traceable to the DCCT. us Rebekah TOTH LAB BLOOD ORDERABLES Final Resu lt [facility] [address] [place] [address] * Colonoscopy (05/31/2021 8:36 AM EDT) Anatomical Region Laterality Modality Endoscopy Narrative 05/31/2021 8:43 AM EDT Impression Overall Impression: The terminal ileum appeared normal. Performed random biopsy. The entire colon appeared normal. Performed random biopsy. Few small diverticula in the sigmoid colon Recommendation Await pathology results Continue with current medication Follow up with GI Clinic Resume previous diet today Resume previous activity tomorrow Discharge home today, with escort Indication Diarrhea, unspecified type Elevated fecal calpro Medications See anesthesia record for anesthesia administered medications. Staff Staff Role Nilam Nam MD Anesthesiologist Nilam Echeverria Endo Nurse Aamir Banuelos MD Proceduralist Mary Mares, RN Endo Nurse MOUNA Grigsby CRNA, SOM Endo Nurse Preprocedure A history and physical has been [...] blood pressure, heart rate, level of consciousness, respirations and oxygen were monitored throughout the procedure. A digital rectal exam was performed. A perianal exam was performed. The scope was introduced through the anus and advanced to the terminal ileum.Retroflexion was performed in the rectum. The quality of bowel preparation was evaluated using the Radcliffe Bowel Preparation Scale with scores of: right colon = 2, transverse colon = 2, left colon = 3. The total BBPS score was 7. Bowel prep was adequate. The patient's estimated blood loss was minimal (<5 mL). The procedure was not difficult. The patient tolerated the procedure well. There were no apparent complications. Attestation I personally performed the entire procedure Events Procedure Events Event Event Time ENDO SCOPE IN TIME 05/31/2021 8:08 AM ENDO SCOPE OUT TIME 05/31/2021 8:15 AM ENDO SCOPE IN TIME 05/31/2021 8:18 AM ENDO CECUM REACHED 05/31/2021 8:24 AM ENDO SCOPE OUT TIME 05/31/2021 8:34 AM Specimens ID Type Source Tests Collected by Time A : tissue Tissue Duodenum SURGICAL PATHOLOGY EXAM Aamir Banuelos MD 05/31/2021 0811 B : gastric Tissue Stomach SURGICAL PATHOLOGY EXAM Aamir Banuelos MD 05/31/2021 0813 C : terminal ileum Tissue Ileum SURGICAL PATHOLOGY EXAM Aamir Banuelos MD 05/31/2021 08 D : random colon Tissue Large Intestine SURGICAL PATHOLOGY EXAM Aamir Banuelos MD 05/31/2021825 Findings The terminal ileum appeared normal. Performed random biopsy. The entire colon appeared normal. Performed random biopsy. Few small diverticula in the sigmoid colon us Aamir Banuelos MD GI PROCEDURE ORDERABLES Fin al Result from Last 3 Months or Most Recently Relevant to Health Maintenance Additional Health Concerns Active Problems Noted Date Diagnosed Date Autogenerated Problem 08/24/2024 Insurance [facility] MEDICARE Advance Directives * Full Code (Latest Code Status on File) Date Activated Date Inactivated Comments 04/05/2022 11:15 AM 04/06/2022 2:46 AM Question Answer Comments Patient has decision-making capacity? Yes * Full Code Date Activated Date Inactivated Comments 10/02/2020 12:39 PM 10/19/2020 8:02 PM Question Answer Comments Patient has decision-making capacity? Yes Care Teams Lathe Operator Relationship Specialty Start Date End Date Dru Giles MD PCP - General 11/21/21
--- OUTSIDE RECORDS SUMMARY | 2024-09-24 12:58 | XMS_ITS | Encounter Summary ---
Author Organization [facility] Address [address] [id number] Care Team Providers Care Cabinet Professional Name Role Phone Dru Giles MD Primary Care Provider [phone] Encounter Details Date Type Department Care Team (Late st Contact Info) Description 08/31/[address] [facility] Medicine Specialties [address], [address] [place] [phone] Una Gibbons, RN Social History Tobacco Use Types Packs/Day Years [...] encounter Miscellaneous Notes * Telephone Encounter - Gabriella Machado - 09/01/2024 2:48 PM EDT Received call from patient Patient states that she is not available tomorrow for sooner appointment Patient would like to know if Rebekah has anything else sooner at this time Added patient's current 10/07 appt to wait list CB: [phone] * Telephone Encounter - Corky Sutherland, RN - 09/01/2024 12:57 PM EDT S/W patient -she will call her mother to see if they can make the appointment -she will call back and let us know either way -appt details and clinic location provided -no questions, no concerns * Telephone Encounter - Una Gibbons RN - 08/31/2024 7:50 AM EDT Per Rebekah, check with pt and see if they would like to come on 09/02 at 1010 AM for ofv. No answer, left vm for cb documented in this encounter Plan of Treatment Upcoming Encounters Date Type Department Care Team (Late st Contact Info) Description 10/07/2024 1:20 PM EDT Office Visit [facility] Medicine Specialties [address], [address] [place] [address] Rebekah Aragon PA [address] [place] [address] 10/14/2024 12:40 PM EDT Appointment [facility] [address] [place] [phone] Ari Barfield MD [address] [place] [address] 12/29/2024 1:30 PM EDT Office Visit [facility] Medicine Specialties [address], [address] [place] [address] Jesus Tanner MD [address] [place] [address] 02/28/2025 10:00 AM EST Office Visit [facility]ties [address], [address] [place] [address] Melyssa Encinas PA [address] [place] [address] 07/12/2025 11:00 AM EDT Ovarian Cancer Screening [facility] [address], [address]rd [place] [address] documented as of this encounter Goals Goal [...] documented as of this encounter Care Teams Cabinet Professional Relationship Specialty Start Date End Date Dru Giles MD PCP - General 11/21/21 documented as of this encounter
--- OUTSIDE RECORDS SUMMARY | 2024-09-24 12:58 | XMS_ITS | Encounter Summary ---
Author Organization [facility] Address [address] [place] [address] Care Team Providers Care Supervising Broker Name Role Phone Dru Giles MD Primary Care Provider [phone] Encounter Details Date Type Department Care Team (Late st Contact Info) Description 08/20/2024 Telephone [facility] Medicine Specialties [address], [address] [place] [address] Rekha Rodas, RN CH-VASCULAR & [...] Telephone Encounter - Rekha Rodas RN - 08/20/2024 12:57 PM EDT I spoke with the patient. Patient has been vomiting the past couple of days.Patient has been on methotrexate for a while. She is running a low grade fever. I do not think this being caused by the methotrexate . I advised the patient to call her pcp and get checked out since she is having a low grade fever. documented in this encounter Plan of Treatment Upcoming Encounters Date Type Department Care Team (Late st Contact Info) Description 10/07/2024 1:20 PM EDT Office Visit [facility] Medicine Specialties [address], [address] [place] [address] Rebekah Aragon PA [address] [place] [address] 10/14/2024 12:40 PM EDT Appointment [facility] [address] [place] [address] Ari Barfield MD [address] [place] [address] 12/29/2024 1:30 PM EDT Office Visit [facility] Medicine Specialties [address], [address] [place] [address] Jesus Tanner MD [address] [place] [address] 02/28/2025 10:00 AM EST Office Visit [facility] Medicine [facility] [address], [address] [place] [address] Melyssa Encinas PA [address] [place] [address] 07/12/2025 11:00 AM EDT Ovarian Cancer Screening [facility] Gynecology [address] [facility], 3rd [place] [address] documented as of this encounter Visit Diagnoses [...] documented as of this encounter Care Teams Supervising Broker Relationship Specialty Start Date End Date Dru Giles MD PCP - General 11/21/21 documented as of this encounter
--- OUTSIDE RECORDS SUMMARY | 2024-09-24 12:58 | XMS_ITS | Encounter Summary ---
Author Organization Healthcare Address [address] [place] [address] Care Team Providers Care Kindergarten Teacher Assistant Name Role Phone Dru Giles MD Primary Care Provider Encounter Details Date Type Department Care Team (Late st Contact Info) Description 05/17/2024 Orders Only External Location [address] [place] [address] Provider, External Social History Tobacco Use Types [...] Description 10/07/2024 1:20 PM EDT Office Visit [facility] Medicine Specialties [address], [address] [place] [address] Rebekah Aragon PA [address] [place] [address] 10/14/2024 12:40 PM EDT Appointment [facility] [address] [place] [address] Ari Barfield MD [address] [place] [address] 12/29/2024 1:30 PM EDT Office Visit [facility] Medicine Specialties [address], [address] [place] [address] Jesus Tanner MD [address] [place] [address] 02/28/2025 10:00 AM EST Office Visit [facility] Medicine Specialties [address], [address] [place] [address] Melyssa Encinas PA [address] [place] [address] 07/12/2025 11:00 AM EDT Ovarian Cancer Screening [facility] [address] [place] [address] documented as of this encounter Procedures Procedure Name Priority Date/Time Associated Diagnosis Comments CT THORACIC OUTSIDE IMAGES 05/17/2024 11:39 PM EDT documented in this encounter Results * CT THORACIC OUTSIDE IMAGES (05/17/2024 11:39 PM EDT) Anatomical Region Laterality Modality Computed Tomogra phy 05/17/2024 11:3 9 PM EDT us External Provider IMG CT PROCEDURES Final Result documented in this encounter Visit Diagnoses Not [...] documented as of this encounter Care Teams Kindergarten Teacher Assistant Relationship Specialty Start Date End Date Dru Giles MD PCP - General 11/21/21 documented as of this encounter
--- OUTSIDE RECORDS SUMMARY | 2024-09-24 12:58 | XMS_ITS | Encounter Summary ---
Author Organization Healthcare Address [address] [place] [address] Care Team Providers Care Facing Baster Jumpbasting Name Role Phone Dru Giles MD Primary Care Provider [phone] Encounter Details Date Type Department Care Team (Latest Contact Info) Description 09/20/2024 Travel Social History Tobacco Use Types Packs/Day [...] Not at all 09/20/2024 1:12 PM EDT Marci, Kaitl in R Patient Health Questionnaire-9 Score 20 [...] difficult 09/20/2024 1:12 PM EDT Rachel Covarrubias n R * How difficult have these problems made it for you to do your work, take care of things at home, or get along with other people? Answer Date of Assessment Author Somewhat difficult 09/20/2024 1:12 PM EDT Yara Del Cid documented as of this encounter Plan of Treatment Upcoming Encounters Date Type Department Care Team (Late st Contact Info) Description 10/07/2024 1:20 PM EDT Office Visit [facility] Medicine Specialties [address], [address] [place] [address] Rebekah Aragon PA [address] [place] [address] 10/14/2024 12:40 PM EDT Appointment [facility] [address] [place] [address] Ari Barfield MD [address] [place] [address] 12/29/2024 1:30 PM EDT Office Visit [facility] Specialties [address], [address] [place] [address] Jesus Tanner MD [address] [place] [address] 02/28/2025 10:00 AM EST Office Visit [facility] Specialties [address], [address] [place] [address] Melyssa Encinas PA [address] [place] [address] 07/12/2025 11:00 AM EDT Ovarian Cancer Screening [facility] Gynecology [address] [place] [address] documented as of this encounter Goals Goal [...] documented as of this encounter Care Teams Facing Baster Jumpbasting Relationship Specialty Start Date End Date Dru Giles MD PCP - General 11/21/21 documented as of this encounter
--- OUTSIDE RECORDS SUMMARY | 2024-09-24 12:58 | XMS_ITS | Encounter Summary ---
Author Organization Healthcare Address [address] [place] [address] Care Team Providers Care Machine Precision Etcher Name Role Phone Dru Giles MD Primary Care Provider [phone] Reason for Visit * Reason Onset Date Comments Odilia new start 09/20/2024 Encounter Details Date Type Department Care Team (Late st Contact Info) Description 09/20/2024 Telephone [facility] Medicine Specialties [address], [address] [place] [address] Guille Escobar new start Social History Tobacco Use Types Packs/Day Years [...] Author 0 09/20/2024 1:07 PM Yara Mcintosh R * Question Answer Date of Assessment Author [...] Nearly every day 09/20/2024 1:12 PM Rachel Mcnitosh Feeling tired or having little energy Nearly [...] encounter Miscellaneous Notes * Telephone Encounter - Shawna Jackson [facility] - 09/21/2024 2:59 PM EDT [facility] Specialty Medication Initial Care Plan Marizol Bishop is a 59 y.o. female assessed via phone for initiation of drug therapy Humira CF for diagnosis RA. Plan for administration of therapy in patient's home Therapeutic Category: Rheumatoid Arthritis Chart Review Allergies: Bee venom, Compleat, Morphine, Other, Penicillin g, Shellfish-derived products, Sulfacetamide, Wheat, Yeast, Pork allergy, Shellfish allergy, Trimethoprim, Diphth-acell pertussis-tetanus, Dtap-hepatitis b recomb-ipv, Rvwg-gey-pjl-hepatitis b recmb, Penicillin v potassium, Penicillins, Sulfa drugs, Sulfamethoxazole, Tetanus antitoxin, Tetanus toxoid, Tetanus-diphtheria toxoids td, and Wheat Current Outpatient Medications Medication Instructions azelastine (Astelin) [...] Horizant 600 MG tablet controlled-release ER tablet Humira (2 Pen) 40 mg, Subcutaneous, Every 14 days ketotifen (Zaditor) 0.035 % ophthalmic solution lamoTRIgine [...] mg, Nightly Multiple Vitamins-Minerals (EQ One Daily Bootleg Market) tablet 1 tablet, Daily ondansetron (ZOFRAN) 4 [...] DIRECTED NEEDED with epipen FOR anaphylactic reactions Problem List[1] Immunization History Administered Date(s) Administered Influenza, injectable, quadrivalent, preservative free 11/30/2019, 12/09/2020, 01/04/2022, 01/01/2023 Influenza, seasonal, injectable, preservative free 12/18/2023 Moderna COVID-19 Vaccine (Motor Vehicle Field Representative) 12+ years 05/10/2020, 06/07/2020, 01/03/2021 Moderna COVID-19 Vaccine Bivalent 6months+ 12/12/2021 Pneumococcal Polysaccharide PPV23 02/19/2022 Zoster, Recombinant 10/24/2022, 05/08/2023 Selected lab results: Lab Results Component Value Date WBC 8.34 09/20/2024 HGB 11.0 (L) 09/20/2024 HCT 35.9 09/20/2024 PLT 163 09/20/2024 , Lab Results Component Value Date NA 140 09/20/2024 K 3.8 09/20/2024 CL 106 09/20/2024 CREATININE 0.91 09/20/2024 BUN 13 09/20/2024 GLUCOSE 117 (H) 09/20/2024 CALCIUM 9.3 09/20/2024 CO2 22 09/20/2024 , Lab Results Component Value Date ALBUMIN 3.7 09/20/2024 ALKPHOS 180 (H) 09/20/2024 ALT 30 09/20/2024 AST 54 (H) 09/20/2024 BILITOT 1.7 (H) 09/20/2024 , Lab Results Component Value Date QUANTIFERON Negative 04/19/2024 , and Lab Results Component Value Date HEPBCAB Negative 08/24/2021 HEPBSAG Negative 04/19/2024 HEPBSAB Negative 03/28/2022 Patient profile review for changes in Medications, Allergies, Conditions, Vaccinations? Reviewed - no changes Medication reconciliation - review all current medications including prescriptions, PTC, herbals, and supplements with the patient? Completed Is this an infusion therapy? No Patient is treatment: Tried and failed: methotrexate. Rx sent to [facility]. Hydroxychloroquine contraindicated due to macular degeneration. Is patient of child bearing potential? No Disease specific labs or assessments: Other CBC, CMP, TB Does patient have an active infection? None Drug Review Patient drug therapy to be initiated: Humira Planned date of initiation: 09-23-24 Is the patient taking concomitant therapy for this disease? No Drug assessment: Is this the appropriate drug/dose/route/frequency/duration? Yes Drug utilization review Drug-disease precautions: No clinically significant issues identified Drug-drug interactions: No clinically significant issues identified Drug-patient precautions: No clinically significant issues identified Adherence summary: What percent of doses did the patient miss in the past 4 weeks? Cannot assess Therapeutic benefit summary: Unable to assess Patient's therapy is appropriate to: Initiate Education and Counseling Patient refused education & counseling on disease education including an overview of the condition, its progression and potential complications, associated comorbidities, prevention strategies, goals of therapy, and treatment and therapy management. Patient refused education & counseling on medication(s) including REMS/Black box warnings, proper use, timely administration or intake, missed dose instructions, potential side effects, contraindications, safety and handling precautions, storage and disposal guidelines, and general warnings and precautions. Patient refused education & counseling on adherence including the importance of adherence and adherence management strategies. Medication specific education provided: Humira - Pt educated by clinic, confirmed knowledge of how to self-inject medication, importance of compliance to therapy taking at the same time each dose, how to take other medications based on possible DDI, and how to avoid DDIs by calling [facility] before addin g/changing any medications. Pt aware of possible side effects including, but not limited to: injection site reactions (for injectable therapies), possible allergic reaction, headache, bone/muscle pain, upset stomach, irregular bowels, signs/symptoms of infection, increased risk of malignancy, and how to manage these. Pt will contact provider or seek urgent medical attention/911 if the experience any concerning reactions. Pt aware of importance to complying with labs ordered by provider. Pt willcontact [facility] if they have any other questions or concerns. No other questions or concerns at this time per patient. Monitoring Questions Patient reported outcomes: Do you feel comfortable administering your medication and following the treatment plan as prescribed? Yes If therapy is injectable, does patient require further injection training? No How would you rate your pain on average? (0 = no pain, 10 = worst pain imaginable) 7 On a scale from 1 to 10, with 10 being very well and 1 being very poor, how are you feeling overall? 6 How satisfied are you with the ongoing education and counseling you receive regarding your health condition, on a scale of 1 to 5, with 5 being completely satisfied and 1 being dissatisfied? Patient management score: 5-Completely Satisfied Patient Management Assessment scores must be reviewed by a clinician with each Care Plan. Scores of2 or lower must be documented in a Clinical Intervention Care Plan. Disease symptoms assessment Has the patient been seen for planned or unplanned healthcare visit in the last 4 weeks? No Has the patient missed any days from work, school, or planned activities in the past 4 weeks due totheir disease? No Care Plan Questions Goal(s) of therapy: Control signs and symptoms of disease Strategies to achieve goal(s) of therapy: Adhere to plan of care (drug therapy), Comply to lab tests/imaging, Comply to follow up appointments, and Share concerns about drug therapy or side effects with care team Identified barrier(s) to care/intervention problem type: No problems identified (No barriers to care or risks associated with medication storage and handling identified) Mitigation strategy for identified barriers: none Outcome of Clinical Intervention: Intervention not needed Current adverse events/side effects patient is experiencing: Unable to assess Counseled patient on selected side effects: Patient refused Summary/Plan Prior authorization for Humira has been approved and education provided. The Initial Shipment has been set up and anticipated therapy start date is: 09-23-24 from [facility]. Please see pharmacy encounter note for details. Pharmacist reviewed the plan of care in regards to specialty medication Humira for diagnosis of Rheumatoid Arthritis. Patient starting therapy with anticipated therapy start date is: 09-23-24.. Anticipated filling pharmacy is: [facility] and location of administration will be patient's home Plan/Patient specific needs: Administer Humira as prescribed. Patient/caregiver participated in the development and agreed to the plan of care. Patient/caregiverhad no additional questions or concerns for the care team. Patient/caregiver voiced understanding of the goals with the regimen and agreed to attend follow up appointments to assess progress toward their goal. The plan of care will be reviewed at least annually, or more often if there is a need. The patient agrees with all elements of the care plan: Yes Shawna Jackson RPh 09/21/2024 2:59 PM [1] Patient Active Problem List Diagnosis Inflammatory polyarthritis (CMS/HCC) Polyarthralgia Polyarticular gout Lupus arthritis (CMS/HCC) On methotrexate therapy High risk medication use Positive KAMERON (antinuclear antibody) Morbid obesity with body mass index (BMI) of 40.0 or higher (CMS/HCC) Elevated liver enzymes Fatty liver Cirrhosis of liver without ascites (CMS/HCC) Seronegative rheumatoid arthritis of multiple sites (CMS/HCC) Therapeutic drug monitoring Liver lesion * Telephone Encounter - Guille Escobar - 09/20/2024 1:53 PM EDT Per discussion with provider, Humira autoinjector has been ordered at the request of the provider for 28 day supply with 3 refills [facility] Cosigned by Ayad Banks PharmD at 09/20/2024 2:57 PM EDT Associated attestation - Ayad Banks PharmD - 09/20/2024 2:57 PM EDT I attest to the pharmacy district manager's recommendations. Thanks! Angelo Banks documented in this encounter Plan of Treatment Upcoming Encounters Date Type Department Care Team (Late st Contact Info) Description 10/07/2024 1:20 PM EDT Office Visit [facility] Medicine Specialties [address], [address] [place] [address] Rebekah Aragon PA [address] [place] [address] 10/14/2024 12:40 PM EDT Appointment [facility] [address] [place] [address] Ari Barfield MD [address] [place] [address] 12/29/2024 1:30 PM EDT Office Visit [facility] Medicine Specialties [address], [address] [place] [address] Jesus Tanner MD [address] [place] [address] 02/28/2025 10:00 AM EST Office Visit [facility] Medicine Specialties [address], [address] [place] [address] Melyssa Encinas PA [address] [facility] [address] [place] [address] 07/12/2025 11:00 AM EDT Ovarian Cancer Screening [facility] [address], [address]rd [place] [address] documented as of this encounter Goals Goal Patient Goal Type Associated Problems Recent Progress Patient-Stated? Author Autogenerat ed Goal Care Plan Autogenerated Problem No Dana Ng documented as of this encounter Visit Diagnoses Diagnosis Seronegative rheumatoid arthritis of multiple sites (CMS/[facility])- Primary documented in this encounter Additional Health Concerns [...] documented as of this encounter Care Teams Machine Precision Etcher Relationship Specialty Start Date End Date Dru Giles MD PCP - General 11/21/21 documented as of this encounter
--- OUTSIDE RECORDS SUMMARY | 2024-09-24 12:58 | XMS_ITS | Encounter Summary ---
Author Organization Healthcare Address [address] [place] [id number] Care Team Providers Care Environment Coordinator Name Role Phone Dru Giles MD Primary Care Provider [phone] Encounter Details Date Type Department Care Team (Late st Contact Info) Description 08/23/2024 Orders Only [facility] Medicine Specialties [address], [address] [place] [address] Melyssa Encinas, JANEY [address] [place] [address] Normocytic anemia (Primary Dx) Social History Tobacco Use Types Packs/Day Years [...] Not at all 08/23/2024 9:43 AM EDT Brauloi Heckpest A Patient Health Questionnaire -2 Score 0 [...] all 08/23/2024 9:43 AM EDT Luz Maria Murrell A Trouble concentrating on thi ngs, such [...] 08/23/2024 9:43 AM EDT Franca Heckt A Thoughts that you would be b [...] Description 10/07/2024 1:20 PM EDT Office Visit [facility] Medicine Specialties [address] [place] [address] Rebekah Aragon PA [address] [place] [address] 10/14/2024 12:40 PM EDT Appointment [facility] [address] [place] [address] Ari Barfield MD [address] [place] [address] 12/29/2024 1:30 PM EDT Office Visit [facility] Medicine Specialties [address], [address] [place] [address] Jesus Tanner MD [address] [place] [address] 02/28/2025 10:00 AM EST Office Visit [facility] Medicine Specialties [address], [address] [place] [address] Melyssa Encinas PA [address] [place] [address] 07/12/2025 11:00 AM EDT Ovarian Cancer Screening [facility] Gynecology [address] [place] [address] documented as of this encounter Results * (ABNORMAL) Iron & Total Iron Binding Capacity, Plasma (Includes Transferrin) (08/23/2024 10:38 AM EDT) Iron, Plasma 43 30 - 160 ug/dL 08/23/2024 1:07 PM EDT [facility] Transferrin, Plasma 187(L) 200 - 360 mg/dL 08/23/2024 1:07 PM EDT [facility] Total Iron Binding Capacity, Plasma 234(L) 240 - 450 ug/mL 08/23/2024 1:07 PM EDT [facility] Transferrin Saturation 18 14 - 50 % 08/23/2024 1:07 PM EDT [facility] Blood Venous blood specimen / Unknown Venipuncture / Unknown 08/23/2024 10:38 AM EDT 08/23/2024 10:39 AM EDT Melyssa TOTH LAB BLOOD ORDERABLES Final Resu lt Performing Organization Address [facility]/ZIP Co de Phone Number [facility] [address] [place] [address] * Folate (08/23/2024 10:38 AM EDT) Folate, Serum >20.0 >4.6 ng/mL 08/23/2024 1:31 PM EDT [facility] Blood Venous blood specimen / Unknown Venipuncture / Unknown 08/23/2024 10:38 AM EDT 08/23/2024 10:39 AM EDT us Melyssa T[facility] LAB BLOOD ORDERABLES Final Resu lt Performing Organization Address [facility] Co de Phone Number [facility] [address] [place] [address] * Vitamin B12 (08/23/2024 10:38 AM EDT) Vitamin B12, Serum 762 210 - 1,033 pg/mL 08/23/2024 1:31 PM EDT [facility] Blood Venous blood specimen / Unknown Venipuncture / Unknown 08/23/2024 10:38 AM EDT 08/23/2024 10:39 AM EDT Melyssa [facility] LAB BLOOD ORDERABLES Final Resu lt Performing Organization Address [facility] Co de Phone Number [facility] [address] [place] [address] documented in this encounter Visit Diagnoses Diagnosis Normocytic anemia- Primary Unspecified anemia documented in this encounter Additional Health Concerns Assessment Noted Time PHQ-9 Depression Total Score: 0 08/24/19 25 9:43 AM EDT A fall risk assessment has been complete d for the patient 08/23/2024 9:43 AM EDT A Body Mass Index follow-up plan has been documented for the patient 08/23/2024 10:52 AM EDT documented as of this encounter Care Teams Environment Coordinator Relationship Specialty Start Date End Date Dru Giles MD PCP - General 11/21/21 documented as of this encounter
--- OUTSIDE RECORDS SUMMARY | 2024-09-24 12:58 | XMS_ITS | Encounter Summary ---
Author Organization [facility] Address [address] [place] [address] Care Team Providers Care Blending Operator Name Role Phone Dru Giles MD Primary Care Provider [phone] Encounter Details Date Type Department Care Team (Late st Contact Info) Description 08/24/2024 Telephone [facility] Medicine Specialties [address], [address] [place] [address] [place] [address] Social History Tobacco Use Types Packs/Day Years [...] * Telephone Encounter - Gabriella Machado - 08/24/2024 3:20 PM EDT Received call from patient Patient was following up from previous message Advised patient of provider message Transferred patient to endoscopy scheduling to schedule EGD Patient had no questions or concerns prior to transfer * Telephone Encounter - Yesi Melgar - 08/24/2024 11:51 AM EDT Patient called She was told by Melyssa Encinas to call if she threw up anymore, and she threw up this morning CB: [phone] documented in this encounter Plan of Treatment Upcoming Encounters Date Type Department Care Team (Late st Contact Info) Description 10/07/2024 1:20 PM EDT Office Visit [facility] Medicine Specialties [address], [address] [place] [address] Rebekah Aragon PA [address] [place] [address] 10/14/2024 12:40 PM EDT Appointment [facility] [address] [place] [address] Ari Barfield MD [address] [place] [address] 12/29/2024 1:30 PM EDT Office Visit [facility] Medicine Specialties [address], [address] Floor [facility] [place] [address] Jesus Tanner MD [address] [place] [address] 02/28/2025 10:00 AM EST Office Visit [facility] Medicine Specialties [address], [address] [place] [address] Melyssa Encinas PA [address] [place] [address] 07/12/2025 11:00 AM EDT Ovarian Cancer Screening [facility] [address] [facility], [address]rd [place] [address] documented as of this encounter Goals Goal [...] documented as of this encounter Care Teams Blending Operator Relationship Specialty Start Date End Date Dru Giles MD PCP - General 11/21/21 documented as of this encounter
--- OUTSIDE RECORDS SUMMARY | 2024-09-24 12:58 | XMS_ITS | Encounter Summary ---
Author Organization Healthcare Address [address] [place] [id number] Care Team Providers Care Concession Cashier Name Role Phone Dru Giles MD Primary Care Provider [phone] Encounter Details Date Type Department Care Team (Late st Contact Info) Description 08/27/2024 Telephone [facility] Medicine Specialties [address], [address] [place] [address] Jesus Tanner MD [address] [place] [address] Social History Tobacco Use Types [...] encounter Miscellaneous Notes * Telephone Encounter - Agata Cadena T - 08/27/2024 12:07 PM EDT Clinical Concern/Question Reason for Call: Pt states her eyes have changed to a different color shade and she is wanting to know if that was normal. Please call. Best contact number: [phone] (home) Optimal time of day to reach [...] Description 10/07/2024 1:20 PM EDT Office Visit [facility] Medicine Specialties [address], [address] [place] [address] Rebekah Aragon PA [address] [place] [address] 10/14/2024 12:40 PM EDT Appointment [facility] [address] [place] [address] Ari Barfield MD [address] [place] [address] 12/29/2024 1:30 PM EDT Office Visit [facility] Specialties [address], [address] [place] [address] Jesus Tanner MD [address] [place] [address] 02/28/2025 10:00 AM EST Office Visit [facility] Specialties [address], [address] [place] [address] Melyssa Encinas PA [address] [place] [address] 07/12/2025 11:00 AM EDT Ovarian Cancer Screening [facility] Gynecology [address] [place] [address] documented as of this encounter Goals Goal [...] documented as of this encounter Care Teams Concession Cashier Relationship Specialty Start Date End Date Dru Giles MD PCP - General 11/21/21 documented as of this encounter
--- OUTSIDE RECORDS SUMMARY | 2024-09-24 12:58 | XMS_ITS | Encounter Summary ---
Author Organization [facility] Address [address] [place] [address] Care Team Providers Care Project Management It Specialist Name Role Phone Dru Giles MD Primary Care Provider [phone] Encounter Details Date Type Department Care Team (Late st Contact Info) Description 08/10/2024 Telephone [facility] Medicine Specialties [address], [address] [place] [address] [place] [address] Social History Tobacco Use Types Packs/Day Years [...] encounter Miscellaneous Notes * Telephone Encounter - Yesi Melgar - 08/11/2024 3:53 PM EDT Patient called to follow up CB: [phone] * Telephone Encounter - Yesi Melgar - 08/10/2024 11:24 AM EDT Patient called She has an appointment on 09/20 She doesn't believe the methotrexate is working for her and she's having a lot of issues with jointpain She's wondering if maybe infusions may work better for her She's wondering about a sooner appointment I placed appointment on a waitlist CB: [phone] documented in this encounter Plan of Treatment Upcoming Encounters Date Type Department Care Team (Late st Contact Info) Description 10/07/2024 1:20 PM EDT Office Visit [facility] Medicine Specialties [address], [address] [place] [address] Rebekah Aragon PA [address] [place] [address] 10/14/2024 12:40 PM EDT Appointment [facility] [address] [place] [address] Ari Barfield MD [address] [place] [address] 12/29/2024 1:30 PM EDT Office Visit [facility] Specialties [address], [address] [place] [address] Jesus Tanner MD [address] [place] [address] 02/28/2025 10:00 AM EST Office Visit [facility] [address], [address] [place] [address] Melyssa Encinas PA [address] [place] [address] 07/12/2025 11:00 AM EDT Ovarian Cancer Screening [facility] [address] [place] [address] documented as of this encounter Visit Diagnoses [...] documented as of this encounter Care Teams Project Management It Specialist Relationship Specialty Start Date End Date Dru Giles MD PCP - General 11/21/21 documented as of this encounter
--- OUTSIDE RECORDS SUMMARY | 2024-09-24 12:58 | XMS_ITS | Encounter Summary ---
Author Organization Healthcare Address [address] [place] [address] Care Team Providers Care Director Food And Beverage Name Role Phone Dru Giles MD Primary Care Provider Reason for Visit * Reason Onset Date Comments HCN - Patient Message 08/23/2024 Returning Call Returning call Encounter Details Date Type Department Care Team (Late st Contact Info) Description 08/23/2024 Telephone [facility] Medicine Specialties [address], [address] [place] [address] Melyssa Encinas, JANEY [address] [place] [address] HCN - Patient Message (Returning Call /Returning call ) Social History Tobacco Use Types Packs/Day Years [...] Patient does not drink 09/20/2024 1:07 PM JABARIT Yara Covarrubias Q3: How often do you have six or more drinks on one occasion? Never 09/20/2024 1:07 PM EDT Rachel Covarrubias * Over the past 2 weeks, how often have you been bothered by any of the following problems? Question Answer Date of Assessment Author Little interest or pleasure in doing things More than half the days 09/20/2024 1:12 PM JABARIT Yara Covarrubias Feeling down, depressed, or hopeless More than half the days 09/20/2024 1:12 PM JABARIT Yara Covarrubias Patient Health Questionnaire-2 Score 4 09/20/2024 1:12 PM JABARIT Aleksandra Covarrubias * Question Answer Date of Assessment Author Trouble falling or staying asleep, or sleeping too much Nearly every day 09/20/2024 1:12 PM JABARIT Rachel Covarrubias Feeling tired or having little energy Nearly every day 09/20/2024 1:12 PM EDT Rachel Covarrubias Poor appetite or overeating Nearly every day 09/20/2024 1:12 PM JABARIT Rachel Covarrubias Feeling bad about yourself - or that you are a failure or have let yourself or your family down Several days 09/20/2024 1:12 PM JABARIT Rachel Covarrubias Trouble concentrating on things, such as reading the newspaper or watching television Nearly every day 09/20/2024 1:12 PM EDT Rachel Covarrubias Moving or speaking so slowly that other [...] encounter Miscellaneous Notes * Telephone Encounter - Yasmeen Tran RN - 08/25/2024 9:55 AM EDT Attempted pt again no answer. * Telephone Encounter - Yasmeen Tran RN - 08/24/2024 1:34 PM EDT Attempted to return call no answer. * Telephone Encounter - Dejon Crawford - 08/23/2024 3:34 PM EDT Patient Phone Message Reason for Call: Pt is requesting a call to discuss what Melyssa wants to do regarding her current medications. Best contact number and optimal time of day to reach caller: [phone] Note: Please do not reply to this [...] Description 10/07/2024 1:20 PM EDT Office Visit [facility] Medicine Specialties [address], [address] [place] [address] Rebekah Aragon PA [address] [place] [address] 10/14/2024 12:40 PM EDT Appointment [facility] [address] [place] [address] Ari Barfield MD [address] [place] [address] 12/29/2024 1:30 PM EDT Office Visit [facility] [address], [address] [place] [address] Jesus Tanner MD [address] [place] [address] 02/28/2025 10:00 AM EST Office Visit [facility] [address], [address] [place] [address] Melyssa Encinas PA [address] [place] [address] 07/12/2025 11:00 AM EDT Ovarian Cancer Screening [facility] [address] [place] [address] documented as of this encounter Visit Diagnoses [...] documented as of this encounter Care Teams Director Food And Beverage Relationship Specialty Start Date End Date Dru Giles MD PCP - General 11/21/21 documented as of this encounter
[2024-09-24] MEDS: SODIUM CHLORIDE 0.9% 10ML SYR (RAD ONLY) 10 ML IV ×2 (13:04→13:48)
[2024-09-24] MEDS: 0.9 % SODIUM CHLORIDE 50 ML VIAL IV ×2 (13:04→13:48)
[2024-09-24] MEDS: IOPAMIDOL-370 (76%);100ML BOTTLE 80 ML IV (13:04)
--- NOTE | 2024-09-24 13:04 | HMH.EDGENADL ---
Discharge Plan Disposition Patient Disposition: Admitted Condition: Fair Clinical Impressions Clinical Impression: VITA (acute kidney injury), Encephalopathy, Fall down steps Discharge ED Provider: Wil Bower General Adult HPI General Chief complaint: Trauma Stated complaint: AMS Time Seen by Provider: 09/24/24 13:01 History of Present Illness HPI narrative: Marizol Bishop is a 59-year-old female with a history of hypertension, obesity, UTI, on a bunch of psychiatric medications according to mother who presents to the emergency department via EMS after a suspected fall. Per EMS, patient was found at the bottom of her stairs, presumably falling down approximately 4 stairs with her cane. They noted that she was altered on arrival with confusion. This was an unwitnessed fall. They did not appreciate any obvious injuries. They noted temperature and route was of 101.5 degrees Fahrenheit but she was otherwise stable. Upon arrival, patient was made a stroke alert due to inability to identify objects, difficulty following commands, confusion, and possible gaze palsy. Patient is alert and answers most orientation questions correctly, including name and location, however when asked what year it is she says [facility] . She cannot identify the correct month. She does not remember the events that led up to her suppose it fall. Her mother at the bedside states that this is not her baseline but she does not know when she was last normal. She does state that she had a doctor's appointment yesterday but she did not attend this with her. Mother does note that she sees a manager secondary in [place] and went to get Humira injection and vaccine yesterday. Related Data Home Medications ?Medication ?Instructions ?Recorded ?Confirmed methotrexate sodium 2.5 mg tablet 15 mg PO WEEKLY 08/09/22 09/25/24 levocetirizine 5 mg tablet 5 mg PO HS 02/17/24 09/25/24 linaclotide 145 mcg capsule 145 mcg PO 0700 PRN Constipation 02/17/24 09/25/24 (Linzess) simvastatin 20 mg tablet 20 mg PO HS 06/16/24 09/25/24 dasiglucagon 0.6 mg/0.6 mL 0.6 mg SQ Q3MINP PRN Anaphylaxis 06/28/24 09/25/24 subcutaneous auto-injector (Zegalogue) adalimumab 40 mg/0.8 mL 40 mg SQ .EVERY 2 WEEKS 09/23/24 09/25/24 subcutaneous syringe kit (Humira) albuterol sulfate 90 mcg/actuation 2 inh inhalation Q6HP PRN 09/25/24 09/25/24 aerosol inhaler shortness of breath or wheezing azelastine 137 mcg (0.1 %) nasal 2 spray intranasal BIDP PRN 09/25/24 09/25/24 spray Congestion fluticasone propionate 50 1 spray intranasal DAILY 09/25/24 09/25/24 mcg/actuation nasal spray,suspension gabapentin enacarbil 600 mg 600 mg PO 1700 RLS 09/25/24 09/25/24 tablet,extended release (Horizant ER) meclizine 25 mg tablet 25 mg PO TIDP PRN dizziness 09/25/24 09/25/24 metoclopramide HCl 5 mg tablet 5 mg PO TIDP PRN Stomach Upset 09/25/24 09/25/24 (Reglan) montelukast 10 mg tablet 10 mg PO HS 09/25/24 09/25/24 pantoprazole 40 mg tablet,delayed 40 mg PO 0700 09/25/24 09/25/24 release tramadol 50 mg tablet 50 mg PO Q8HP PRN pain 09/25/24 09/25/24 Previous Rx's ?Medication ?Instructions ?Recorded folic acid 1 mg tablet 1 mg PO DAILY #90 tabs 10/13/23 fluticasone furoate 200 1 inh inhalation DAILY 90 days #90 03/11/24 mcg-vilanterol 25 mcg/dose ea inhalation powder (Breo Ellipta) mirtazapine 15 mg tablet (Remeron) 22.5 mg (1.5 x 15 mg) PO HS #45 05/13/24 tabs ferrous sulfate 325 mg (65 mg 325 mg PO BID #60 tabs 05/20/24 iron) tablet desvenlafaxine succinate 100 mg 100 mg PO DAILY #90 tabs 07/23/24 tablet,extended release 24 hr (Pristiq) lamotrigine 100 mg tablet 100 mg PO DAILY #90 tabs 07/23/24 (Lamictal) ondansetron HCl 4 mg tablet 4 mg PO Q8H PRN nausea and 08/24/24 vomiting #20 tabs levofloxacin 750 mg tablet 750 mg PO DAILY 6 days #6 tabs 09/25/24 metronidazole 500 mg tablet 500 mg PO Q8H 6 days #18 tabs 09/25/24 valsartan 320 mg tablet 160 mg (1/2 x 320 mg) PO DAILY HTN 09/25/24 #90 tabs Allergies Allergy/AdvReac Type Severity Reaction Status Date / Time bee venom protein (honey bee) Allergy Severe Anaphylaxis Verified 09/23/24 09:15 shellfish derived Allergy Severe Hives Verified 09/23/24 09:15 wheat Allergy Severe Hives Verified 09/23/24 09:15 Yeast Allergy Severe Hives Verified 09/23/24 09:15 Pork/Porcine Containing Allergy Hives Verified 09/23/24 09:15 Products food allergies Allergy Severe Hives Uncoded 09/23/24 09:15 Penicillin Allergy Unknown Hives Uncoded 09/23/24 09:15 SULFA (sulfonamide) Allergy Unknown Hives Uncoded 09/23/24 09:15 Sulfamethoxazole Allergy Unknown Hives Uncoded 09/23/24 09:15 Trimethoprim Allergy Unknown Hives Uncoded 09/23/24 09:15 [facility] Disclaimer: The information contained in this section may have been updated after the patient was seen, as this information can be updated by other users. Medical History Mastoiditis Asthma Ear pain Retracted ear drum Otalgia, left ear Eustachian tube dysfunction BROWN on CPAP Moderate BROWN with nocturnal hypoxemia resolved on CPAP at 12 cm, excellent compliance, no intolerance. Adjustment disorder with mixed anxiety and depressed mood Martin's health issues cause many emotions to surface as she is trying to cope/adjust to the way her life is, or will be. Most of Martin's concerns are for the care and welfare of her autistic son, if something negative should happen to her. MDD (major depressive disorder), recurrent, with melancholic features Martin shared that there are several things that she has to do differently, or give up altogether because her health issues will not allow her to do the things anymore. This has caused Martin to be sad, irritable, scared, depressed, and at times, hopeless. Generalized anxiety disorder with panic attacks Martin reported having Anxiety and Panic attacks as a little girl, and she was known as a worry-wart. Currently, her anxious symptoms have been worse since March 2020 when she became very sick and now has several serious illnesses. Lupus Ovarian cyst Moderate persistent asthma Allergic rhinitis Mild intermittent asthma History of seronegative inflammatory arthritis Inflammatory polyarthritis Wheezing Dyspnea on exertion Surgical History Status post myringotomy with insertion of tube LEFT History of surgery on lower extremity History of cholecystectomy History of esophagogastroduodenoscopy (EGD) History of colonoscopy History of tonsillectomy Family History Other Family history of cancer Heart attack Hypertension Stroke Social History (Updated 09/24/24 @ 17:36 by Mami Frias RN) Smoking Status: Never smoker alcohol intake: never substance use type: denies use current occupational status: disabled Travel in the last 8 weeks?: Inside the [place] household members: other housing: apartment lives independently: Yes marital status: single number of children: 1 Have you lived/traveled outside [place] in past 30 days?: No Contact w/someone who lives/traveled outside US past 30 days?: No Exposure to someone with infectious disease in past 14 days?: No Do you have a fever (greater than 100.4 F or 38 C)?: No Have you tested positive for COVID-19?: No Exposed to someone with COVID-19 in past 14 days?: No Do you have a sore throat?: No Do you have a cough?: No Do you have any weakness?: No Are you experiencing any nausea/vomitting?: Yes Do you have any diarrhea?: No Are you experiencing any unusual bleeding?: No Do you have any muscle aches/pain?: No Do you have any abdominal pain?: No Are you experiencing loss of taste or smell?: No Other Medical History Have you received the Flu Vaccine for this season: No Have you received the Pneumonia Vaccine: Yes ROS Obtained: Yes Systems reviewed as appropriate & no additional complaints except as documented Physical Exam General General appearance: alert, in no apparent distress and obese Head Head exam: atraumatic Eye Eye exam: Present normal appearance, PERRL and EOMI ENT ENT exam: Present normal external ear exam Neck Neck exam: Present full ROM Chest Chest inspection: Present symmetric chest wall rise; Absent tenderness Respiratory Respiratory exam: Present normal lung sounds bilaterally and other (Breath sounds present bilaterally); Absent respiratory distress, wheezes or stridor Cardiovascular Cardiovascular exam: Present normal rhythm and tachycardia Abdominal Exam Abdominal exam: Present soft; Absent tenderness or guarding Extremities Exam Extremities exam: Present normal inspection and other (small laceration in the web space of the 3rd and 4th digit. No active bleeding) Back Exam Back exam: Present normal inspection and tenderness (midline C/T/L spine tenderness without deformity or stepoff) Neurological Exam Neurological exam: Present alert and other (Oriented to self and location but not year. Will repeat questions. Intermittently following commands. 5 out of 5 strength and sensation in all extremities. Cranial nerves II through XII grossly intact. Unable to perform cerebellar testing due to inability to follow commands. Does not remember ) Psychiatric Psychiatric exam: Present normal affect Skin Skin exam: Present warm and dry Medical Decision Making Medical Records Screening: Per USPSTF and CDC recommendations, given the prevalence of disease in our region, it is our hospital?s policy to screen for HIV and viral Hepatitis for all patients aged 18 and over and those with ongoing risk factors. Magdi Inquiry Pt receiving controlled substance: No Vital Signs: 09/24/24 12:51 09/24/24 12:58 09/24/24 13:20 Temperature 100.5 F H Temperature Source Oral Pulse Rate 109 H Pulse Rate [Left] 104 H 104 H Respiratory Rate 15 15 17 Blood Pressure 152/63 H Blood Pressure [Right Arm] 148/60 H Blood Pressure Mean 92 Blood Pressure Mean [Right Arm] 89 Blood Pressure Source Blood Pressure Source [Right Arm] Manual Cuff/ Auscultation Blood Pressure Position Blood Pressure Position [Right Arm] Supine 02 Sat by Pulse Oximetry 95 95 96 Oxygen Delivery Method Room Air Room Air 09/24/24 13:30 09/24/24 14:30 09/24/24 15:00 Temperature Temperature Source Pulse Rate 113 H 108 H 106 H Pulse Rate [Left] Respiratory Rate 19 22 20 Blood Pressure 143/55 H 147/65 H 148/62 H Blood Pressure [Right Arm] Blood Pressure Mean 84 87 90 Blood Pressure Mean [Right Arm] Blood Pressure Source Blood Pressure Source [Right Arm] Blood Pressure Position Blood Pressure Position [Right Arm] 02 Sat by Pulse Oximetry 96 96 98 Oxygen Delivery Method Room Air Room Air Room Air 09/24/24 15:15 09/24/24 15:30 09/24/24 15:31 Temperature 98.7 F Temperature Source Oral Pulse Rate 104 H 103 H 104 H Pulse Rate [Left] Respiratory Rate 16 22 22 Blood Pressure 166/69 H Blood Pressure [Right Arm] Blood Pressure Mean 90 Blood Pressure Mean [Right Arm] Blood Pressure Source Blood Pressure Source [Right Arm] Blood Pressure Position Blood Pressure Position [Right Arm] 02 Sat by Pulse Oximetry 98 97 97 Oxygen Delivery Method Room Air Room Air Room Air 09/24/24 16:00 09/24/24 16:01 09/24/24 16:30 Temperature Temperature Source Pulse Rate 102 H 100 H Pulse Rate [Left] Respiratory Rate 21 20 Blood Pressure 156/67 H 148/68 H Blood Pressure [Right Arm] Blood Pressure Mean 82 84 Blood Pressure Mean [Right Arm] Blood Pressure Source Blood Pressure Source [Right Arm] Blood Pressure Position Blood Pressure Position [Right Arm] 02 Sat by Pulse Oximetry 99 100 Oxygen Delivery Method Room Air 09/24/24 16:54 09/24/24 16:56 Temperature 98.6 F 98.8 F Temperature Source Oral Oral Pulse Rate 102 H Pulse Rate [Left] 99 H Respiratory Rate 14 19 Blood Pressure 132/74 Blood Pressure [Right Arm] 145/61 H Blood Pressure Mean Blood Pressure Mean [Right Arm] 89 Blood Pressure Source Automatic Cuff Blood Pressure Source [Right Arm] Automatic Cuff Blood Pressure Position Supine Blood Pressure Position [Right Arm] Supine 02 Sat by Pulse Oximetry 97 Oxygen Delivery Method Room Air Room Air Lab Data Lab Results 09/24/24 12:36: WBC 10.0, RBC 3.79 L, Hgb 11.5 L, Hct 36.1 L, MCV 95.3, MCH 30.3, MCHC 31.9, RDW 15.6, Plt Count 143, MPV 10.9 H, Neut % (Auto) 76.9, Lymph % (Auto) 9.1 L, [place] % (Auto) 11.8 H, Eos % (Auto) 0.4, Baso % (Auto) 1.3, Neut # (Auto) 7.7, Lymph # (Auto) 0.9, [place] # (Auto) 1.2 H, Eos # (Auto) 0.0, Baso # (Auto) 0.1, PT 13.1 H, INR 1.20 H, APTT 27.9, Sodium 141, Potassium 4.0, Chloride 105, Carbon Dioxide 13 L, Anion Gap 27.0 H, BUN 13, Creatinine 1.20 H, Estimated Creat Clear 49, Estimated GFR 46 L, Est GFR ( Amer) 56 L, Glucose 170 H, Calcium 10.0, Total Bilirubin 2.8 H, AST 61 H, ALT 38, Alkaline Phosphatase 190 H, Total Creatine Kinase 464 H, Troponin I 0.03, Total Protein 8.5 H, Albumin 4.3, Globulin 4.2 H, Albumin/Globulin Ratio 1.0 L, Triglycerides 119, Cholesterol 165, LDL Cholesterol Direct 56.66 L, VLDL Cholesterol 24, HDL Cholesterol 55, Cholesterol/HDL Ratio 3.0, Plasma/Serum Alcohol < 10 09/24/24 13:25: Magnesium 1.9, C-Reactive Protein 10.5 H, Lipase 164, Procalcitonin 0.225 09/24/24 14:17: Urine Color Yellow, Urine Appearance Clear, Urine pH 6.5, Ur Specific [place] <= 1.005, Urine Protein Negative, Urine Glucose (UA) Negative, Urine Ketones Negative, Urine Blood Negative, Urine Nitrate Negative, Urine Bilirubin Negative, Urine Urobilinogen 2.0, Ur Leukocyte Esterase Negative, Urine RBC 3-5, Urine WBC 5-10, Ur Squamous Epith Cells 5-10, Urine Bacteria 4+, Urine Opiates Screen Negative, Urine Methadone Screen Negative, Ur Barbituates Screen Negative, Ur Phencyclidine Scrn Negative, Ur Amphetamines Screen Negative, U Benzodiazepines Scrn Negative, Urine Cocaine Screen Negative, U Marijuana (THC) Screen Negative 09/25/24 06:40 09/25/24 06:40 Orders (Tests/Meds): ED MEDICATIONS Discontinued Medications Generic Name Dose Route Start Last Admin Trade Name Radha PRN Reason Stop Dose Admin Acetaminophen 650 mg 09/24/24 18:57 09/25/24 08:45 Acetaminophen 325mg Tab PO 10/24/24 18:56 650 mg Q4HP PRN Administration Fever or Mild Pain (1-3) Enoxaparin Sodium 40 mg 09/24/24 21:00 09/25/24 08:44 Enoxaparin 40mg/0.4ml Syringe SUBCUT 10/24/24 20:59 40 mg BID ROBERT Administration Sodium Chloride 4,080 mls @ 2,040 mls/hr 09/24/24 13:37 09/24/24 14:05 Sod Chlor 0.9% 1000ml Bag 30 ml/kg infuse over 2 hr (4080 ml) 09/24/24 15:36 2,040 mls/hr IV Administration .Q2H ONE Piperacillin Sod/Tazobactam 100 mls @ 200 mls/hr 09/24/24 13:45 09/25/24 01:47 Sod 4.5 gm/ Sodium Chloride IV 10/04/24 13:44 200 mls/hr Q12H ROBERT Administration Vancomycin HCl 2,500 mg/ 500 mls @ 250 mls/hr 09/24/24 14:00 09/24/24 14:22 Sodium Chloride IV 09/24/24 15:59 250 mls/hr ONCE ONE Administration Piperacillin Sod/Tazobactam 100 mls @ 200 mls/hr 09/25/24 09:00 09/25/24 16:04 Sod 4.5 gm/ Sodium Chloride IV 10/05/24 08:59 200 mls/hr Q8H ROBERT Administration Iopamidol 80 ml 09/24/24 13:02 09/24/24 13:04 Iopamidol-370 (76%);100ml Bottle IV 09/24/24 13:03 80 ml ONCE ONE Administration Iopamidol 100 ml 09/24/24 13:45 09/24/24 13:48 Iopamidol-370 (76%);100ml Bottle IV 09/24/24 13:46 100 ml ONCE ONE Administration Miscellaneous 1 each 09/24/24 13:37 09/24/24 14:07 Pharmacy Consult Request NOTAPPLIC 09/24/24 13:38 1 each CONSULT PHARMACY ONE Administration Ondansetron HCl 4 mg 09/24/24 18:57 Ondansetron 4mg/2ml Vial IV 10/24/24 18:56 Q6HP PRN Nausea Sodium Chloride 10 ml 09/24/24 12:58 Sodium Chloride 0.9% 10ml Flush Syringe IV 10/24/24 12:57 NEEDED PRN Maintain IV Site Sodium Chloride 50 ml 09/24/24 13:02 09/24/24 13:04 0.9 % Sodium Chloride 50 Ml Vial IV 09/24/24 13:03 50 ml ONCE ONE Administration Sodium Chloride 10 ml 09/24/24 13:02 09/24/24 13:04 Sodium Chloride 0.9% 10ml Syr (Rad Only) IV 09/24/24 13:03 10 ml ONCE ONE Administration Sodium Chloride 10 ml 09/24/24 13:45 09/24/24 13:48 Sodium Chloride 0.9% 10ml Syr (Rad Only) IV 09/24/24 13:46 10 ml ONCE ONE Administration Sodium Chloride 50 ml 09/24/24 13:45 09/24/24 13:48 0.9 % Sodium Chloride 50 Ml Vial IV 09/24/24 13:46 50 ml ONCE ONE Administration Tetanus/Reduced Diphtheria/Acell Pertussis 0.5 ml 09/24/24 14:04 09/24/24 14:27 Tet/Diphth/Pert-Adult 0.5ml Syringe IM 09/24/24 14:05 0.5 ml .ONCE ONE Administration ORDERS Category Date Time Status CT angio abd/pel - TRAUMA Stat Cat Scan 09/24/24 13:[address] angio head Stat Cat Scan 09/24/24 12:[address] angio neck Stat Cat Scan 09/24/24 12:[address] cervical spine wo con Stat Cat Scan 09/24/24 13:[address] head/brain wo con Stat Cat Scan 09/24/24 12:[address] lumbar spine wo con Stat Cat Scan 09/24/24 13:[address] thoracic spine wo con Stat Cat Scan 09/24/24 13:19 Completed CTA Chest [CT angio chest - dissection] Stat Cat Scan 09/24/24 13:19 Completed Foot XR left 2 views [XR foot LT 2V] Stat Exams 09/24/24 13:19 Completed Knee XR left 2 views [XR knee LT 2V] Stat Exams 09/24/24 13:19 Completed Pelvis XR 1-2 views [XR pelvis 1-2V] Stat Exams 09/24/24 14:08 Completed Activated Partial Thrombo Time Stat Lab 09/24/24 12:36 Completed Ammonia Stat Lab 09/24/24 17:18 Completed CK [Creatine Kinase] Stat Lab 09/24/24 12:36 Completed CRP [C-Reactive Protein] Stat Lab 09/24/24 13:25 Completed Complete Blood Count Auto Diff Stat Lab 09/24/24 12:36 Completed Comprehensive Metabolic Panel Stat Lab 09/24/24 12:36 Completed Ethyl Alcohol Stat Lab 09/24/24 12:36 Completed Lipase Stat Lab 09/24/24 13:25 Completed Lipid Panel Stat Lab 09/24/24 12:36 Completed Magnesium Stat Lab 09/24/24 13:25 Completed Procalcitonin Stat Lab 09/24/24 13:25 Completed Prothrombin Time INR Stat Lab 09/24/24 12:36 Completed Troponin I Q3H Lab 09/24/24 17:18 Completed Troponin I Q3H Lab 09/24/24 20:26 Completed Troponin I Stat Lab 09/24/24 12:36 Completed UA [Urinalysis and Microscopic] Stat Lab 09/24/24 14:17 Completed UDS [Drug Screen,Urine] Stat Lab 09/24/24 14:17 Completed Blood Culture Stat Micro 09/24/24 14:05 Results Urine Culture Stat Micro 09/24/24 14:17 Results Medical Decision Narrative: Marizol Bishop is a 59-year-old female with a history of hypertension, obesity, UTI, on a bunch of psychiatric medications according to mother who presents to the emergency department via EMS after a suspected fall. Per EMS, patient was found at the bottom of her stairs, presumably falling down approximately 4 stairs with her cane. They noted that she was altered on arrival with confusion. This was an unwitnessed fall. They did not appreciate any obvious injuries. They noted temperature and route was of 101.5 degrees Fahrenheit but she was otherwise stable. Upon arrival, patient was made a stroke alert due to inability to identify objects, difficulty following commands, confusion, and possible gaze palsy. Patient is alert and answers most orientation questions correctly, including name and location, however when asked what year it is she says [facility] . She cannot identify the correct month. She does not remember the events that led up to her suppose it fall. Her mother at the bedside states that this is not her baseline but she does not know when she was last normal. She does state that she had a doctor's appointment yesterday but she did not attend this with her. Mother does note that she sees a manager secondary in [place] and went to get Humira injection and vaccine yesterday. On arrival, patient is mildly febrile with temperature of 100.5 ?F consistent with prearrival temperature of 101.5 ?F. Patient is mildly hypertensive with blood pressure 148/60. She is mildly tachycardic with heart rates in the low 100s. Breathing comfortably on room air with appropriate oxygen saturation. On triage, patient was stroke alerted due to concern for stroke and was taken immediately to CT scanner. Once patient was brought back to the room, physical exam demonstrated female who is oriented to self and location but when asked what year it is, she states [facility] . She can accurately identify what a pen is but could not think of the word watch . Pupils equal round and reactive to light. Extraocular movements intact. Intermittently following commands. Cranial nerves II through XII grossly intact. 5 out of 5 strength and sensation in all extremities. Unable to perform cerebellar testing due to inability to follow commands. Initial NIH of 3 on my assessment.. Cardiopulmonary exam revealed tachycardia but no chest wall tenderness and breath sounds are present bilaterally. Patient does have a small laceration in the webspace to her fourth digit on the left foot with no active bleeding. She has superficial abrasions over her left knee as well. She is in a cervical collar. She does have tenderness in the mid C/T/L spine but no deformity or step-off. Abdomen is soft, nontender. Differential diagnosis includes, but is not limited to: Stroke, encephalopathy, sepsis, traumatic intracranial bleed, intrathoracic injury such as rib fracture, pneumothorax, cardiac injury, pulmonary contusion, aortic injury, intra-abdominal injury such as splenic laceration, liver laceration, hollow viscus injury, UTI, polypharmacy, among others. The most morbid conditions were considered and workup was based on these. Workup in the emergency department initially included stroke alert workup, which included CTA of the head and neck, CT head without contrast as well as hematologic labs and chemistries. Additionally, left foot x-ray, left knee x-ray and pelvic x-ray were ordered in addition to traumatic CT imaging, including CTA of the chest, CTA abdomen pelvis, CT C/T/L-spine without contrast. Workup was broadened to include blood cultures, procalcitonin, magnesium level, lipase, CRP, ammonia level. CTA of the head neck as well as CT head interpreted by me personally. No intracranial hemorrhage, mass or midline shift. No large vessel occlusion or significant stenosis is appreciated. See final radiology report for details. Patient's lab work showed normal white blood cell count of 10, mild anemia with hemoglobin of 11.5, hematocrit 36.1 but this is stable according to patient's baseline. INR mildly elevated at 1.2 but nonactionable. PTT normal at 27.9. Electrolytes within normal limits. Anion gap is elevated at 27 and she has an VITA with creatinine 1.2 and BUN of 13. Magnesium normal at 1.9. Calcium normal at 10. Bilirubin is elevated at 2.8 and was previously normal. Mildly elevated AST of 61 but ALT normal. Alk phos mildly elevated at 190. Ammonia normal at 18. Initial troponin of 0.03. CRP mildly elevated at 10.5. Procalcitonin normal at 0.225. Urinalysis without blood or evidence of infection. Although she does have 4+ bacteria. Due to patient's tachycardia, fever and confusion, there is concern for sepsis and patient was started on broad-spectrum antibiotics, vancomycin and Zosyn. X-ray imaging and additional trauma CT scans were interpreted by me personally. No acute fractures or dislocations in the foot or knee. No pelvic fractures. No traumatic injuries within the chest, abdomen or pelvis. No evidence of pneumonia. Patient does not have any C/T/L-spine fractures or malalignment. On reassessment, patient is following commands appropriately and is oriented completely. She remembers the event at this time, stating that she was walking down her stairs when she fell and hit her head. She and her mother are both concerned about her taking significant medications for chronic conditions and believes that that is contributing to some of her memory issues, stating that she has been forgetful for some time now. She was recently diagnosed with ADD according to mother. They are also concerned that she may have had a reaction to vaccines that she received yesterday. Patient's NIH at this time is 0. Her C-spine was cleared Via [facility] criteria. Is likely the patient has a concussion in the setting of her fall with head trauma, however there is still concern for infection given her tachycardia, fever and she also has an VITA. For these reasons, is felt that she will require admission for continued monitoring and follow-up of her blood cultures. I discussed patient's case with the hospitalist, who agreed to admit the patient. Critical Care Critical Care Time Critical Care Time: Yes Attestation: On 09/24/24, the high probability of a clinically significant, sudden or life threatening deterioration of the following system(s) required my full and direct attention, intervention and personal management. The time I documented below is in addition to time spent performing reported procedures but includes the following listed in this critical care notation. Total Time Total Critical Care Time: 40
--- NOTE | 2024-09-24 13:19 | XR_ITS ---
FINAL REPORT CLINICAL HISTORY: Fall, left knee abrasion FINDINGS: LEFT KNEE Two views were obtained. There is no fracture or dislocation. There are severe degenerative changes of the medial compartment. The bones are osteopenic. There is a moderate joint effusion. No soft tissue abnormality is identified. IMPRESSION: No acute fracture. Should symptoms persist, consider CT or MRI . Reviewed, Interpreted and Dictated by Murtaza Sharp MD Transcribed by Aminah Bruce Authenticated and [facility]
--- NOTE | 2024-09-24 13:19 | CT_ITS ---
FINAL REPORT CLINICAL HISTORY: Fall, altered mental status FINDINGS: CT LUMBAR SPINE TECHNIQUE: Thin section axial CT with sagittal and coronal reconstructions This study was performed with techniques to keep radiation doses as low as reasonably achievable, (ALARA). Individualized dose reduction techniques using automated exposure control or adjustment of mA and/or kV according to the patient''s size were employed. No fracture is present. Alignment is normal. No bony canal stenosis is seen. There are mild diffuse degenerative changes. There is advanced facet arthropathy at L4-5. IMPRESSION: Negative CT evaluation of the lumbar spine for acute bony injury. Reviewed, Interpreted and Dictated by Murtaza Sharp MD Transcribed by Aminah Bruce Authenticated and [facility]
--- NOTE | 2024-09-24 13:19 | CT_ITS ---
FINAL REPORT TECHNIQUE: Thin section axial CT with sagittal reconstruction without contrast This study was performed with techniques to keep radiation doses as low as reasonably achievable, (ALARA). Individualized dose reduction techniques using automated exposure control or adjustment of mA and/or kV according to the patient''s size were employed. CLINICAL HISTORY: Fall, altered mental status FINDINGS: No fracture is seen. Alignment is normal. No obvious bony spinal canal stenosis is present. There is mild diffuse degenerative disc disease. IMPRESSION: No fracture or malalignment Reviewed, Interpreted and Dictated by Murtaza Sharp MD Transcribed by Aminah Bruce Authenticated and [facility]
--- NOTE | 2024-09-24 13:19 | XR_ITS ---
FINAL REPORT CLINICAL HISTORY: Fall, bleeding from toes FINDINGS: LEFT FOOT Two views were obtained. There is no fracture or dislocation. There are moderate degenerative changes of the hindfoot. There are chronic posttraumatic of the ankle with advanced degenerative changes of the ankle. There are post-ORIF changes of the ankle. Calcaneal spurring is identified. IMPRESSION: Chronic changes without acute process Reviewed, Interpreted and Dictated by Murtaza Sharp MD Transcribed by Aminah Bruce Authenticated and [facility]
--- NOTE | 2024-09-24 13:19 | CT_ITS ---
FINAL REPORT CLINICAL HISTORY: Fall, altered mental status FINDINGS: CT THORACIC SPINE TECHNIQUE: Thin section axial CT with sagittal and coronal reconstructions This study was performed with techniques to keep radiation doses as low as reasonably achievable, (ALARA). Individualized dose reduction techniques using automated exposure control or adjustment of mA and/or kV according to the patient''s size were employed. No fracture is present. Alignment is normal. No bony canal stenosis is seen. There is mild scattered degenerative disc disease and spondylosis. IMPRESSION: Mild degenerative disc disease. Reviewed, Interpreted and Dictated by Murtaza Sharp MD Transcribed by Aminah Bruce Authenticated and [facility]
--- NOTE | 2024-09-24 13:19 | CT_ITS ---
FINAL REPORT TECHNIQUE: Thin section axial CT with contrast with multiplanar reconstruction This study was performed with techniques to keep radiation doses as low as reasonably achievable, (ALARA). Individualized dose reduction techniques using automated exposure control or adjustment of mA and/or kV according to the patient's size were employed. CLINICAL HISTORY: Fall, altered mental status COMPARISON: None FINDINGS: CTA CHEST: Pulmonary vessels enhance in normal fashion without evidence of embolism. Thoracic aorta shows no dissection or aneurysm. No pulmonary mass or infiltrate is present. There is no pneumothorax or evidence of pulmonary contusion. There is no significant pleural effusion. There is no significant pericardial effusion. No rib fracture is identified. No mediastinal or hilar adenopathy is present. IMPRESSION: 1. No evidence of pulmonary embolism or aortic dissection. 2. No evidence of pneumothorax, pulmonary contusion, or rib fracture is identified. Reviewed, Interpreted and Dictated by Murtaza Sharp MD Transcribed by Gilda Maciel Authenticated and [facility]
--- NOTE | 2024-09-24 13:19 | CT_ITS ---
FINAL REPORT TECHNIQUE: Pre-and postcontrast images of the abdomen and pelvis were performed by computed tomography. Extensive 3-D reconstruction images were performed. A CTA was performed. This study was performed with techniques to keep radiation doses as low as reasonably achievable (ALARA). Individualized dose reduction techniques using automated exposure control or adjustment of mA and/or kV according to the patient's size were employed. CLINICAL HISTORY: Fall down stairs, altered mental status COMPARISON: None FINDINGS: ABDOMEN AND PELVIS: The lung bases are clear. Precontrast images demonstrate no evidence of nephrolithiasis. No adrenal masses are identified. The liver, spleen and pancreas are unremarkable. There is hazy density in the mesenteric and celiac axis fat due to patient positioning of the upper extremity overlying the abdomen. The gallbladder has been surgically resected. There is no evidence of free air in the upper abdomen. There is mild stranding around the left colon, colitis and diverticulitis are not excluded. There is minimal upper presacral stranding, which is nonspecific. The uterus and ovaries are unremarkable. No obvious fracture of the pelvis is identified. CTA: The abdominal aorta is proper caliber. The SMA, celiac axis, and AYE are patent. There is no significant stenosis or calcification. The renal arteries are patent bilaterally. The iliac arteries appear unremarkable bilaterally. IMPRESSION: 1. There is no obvious solid organ injury or hemoperitoneum. No free air is identified. 2. There is mild stranding around the left colon, and colitis or diverticulitis are not excluded. Reviewed, Interpreted and Dictated by Murtaza Sharp MD Transcribed by Gilda Maciel Authenticated and [facility]
--- NOTE | 2024-09-24 13:20 | PC.NURSE ---
1250hrs- Patient arrive to ED via EMS with CFD as well 1252hrs- Patient transferred to ED stretcher with both rails raised and secured. 1255hrs- ARSENIO Otoole initiated a Stroke Alert 1257hrs- Patient taken for stroke CT scans 1300hrs- patient transferred CT 1305hrs- FSBS of 157mL/dL 1315hrs- Patient transferred back to ED stretcher 1317hrs- Dr. Bower completed a NIH assessment. 1319hrs- IV established in patients L forearm. 1325hrs ARSENIO Otoole obtained a NIH assessment.
[2024-09-24 13:22] LABS: Hematocrit 36.1 % (37.0-47.0); Hemoglobin 11.5 g/dL (12.2-16.2); Immature Granulocytes % 0.5 %; Mean Corpuscular HGB Conc 31.9 g/dL (31.8-35.4); Mean Corpuscular Hemoglobin 30.3 pg (27.0-31.2); Mean Corpuscular Volume 95.3 fl (81-99); Nucleated Red Blood Cells % 0.3 %; Platelet Count 143 K/mm3 (142-424); Red Blood Count 3.79 M/mm3 (4.20-5.40); Red Cell Distribution Width-SD 53.5 fL; White Blood Count 10.0 K/mm3 (4.8-10.8)
[2024-09-24 13:28] LABS: Alanine Aminotransferase 38 U/L (12-78); Albumin Level 4.3 g/dl (3.5-5.0); Albumin/Globulin Ratio 1.0 (1.1-1.8); Alkaline Phosphatase 190 U/L (38-126); Anion Gap 27.0 mEq/L (5-15); Aspartate Amino Transferase 61 U/L (14-36); Bilirubin,Total 2.8 mg/dl (0.2-1.3); Blood Urea Nitrogen 13 mg/dl (7-17); Calcium 10.0 mg/dl (8.4-10.2); Carbon Dioxide 13 mmol/L (22.0-30.0); Chloride 105 mmol/L (98-107); Cholesterol 165 mg/dl (140-200); Creatinine,Serum 1.20 mg/dl (0.52-1.04); Estimated Glomerular Filt Rate 46 ml/min (>60); GFR (African American) 56 ML/MIN (>60); Globulin 4.2 g/dL (1.3-3.2); Glucose 170 mg/dl (74-100); HDL Cholesterol 55 mg/dl (40-60); Potassium 4.0 mmoL/L (3.5-5.1); Sodium 141 mmol/L (136-145); Total Protein,Serum 8.5 g/dl (6.3-8.2); Triglycerides 119 mg/dl (30-150)
[2024-09-24 13:30] LABS: Creatinine Clearance Estimated 49 mL/min (50-200)
--- NOTE | 2024-09-24 13:32 | ECG_ITS ---
APPROVED REPORT Exam: Resting ECG HR:108 bpm ECG Measurements Heart Rate 108 AXES WA 132 P 43 QRSd 93 QRS 62 QT 338 T 39 QTc 402 Conclusion SINUS TACHYCARDIA NONSPECIFIC ST & T-WAVE ABNORMALITY ABNORMAL RHYTHM ECG UNCONFIRMED REPORT Sinus tachycardia. No ST elevation or depression. Normal QTc interval Electronically signed by : DIOMEDES REEVES, 09/25/2024 07:37:29
[2024-09-24 13:41] LABS: Troponin I 0.03 ng/ml (0.00-0.034)
[2024-09-24 13:45] LABS: Lipase 164 U/L (23-300); Magnesium 1.9 mg/dl (1.6-2.3)
[2024-09-24] MEDS: IOPAMIDOL-370 (76%);100ML BOTTLE 100 ML IV (13:48)
[2024-09-24 13:50] LABS: Activated Partial Thrombo Time 27.9 seconds (22.8-30.6); INR 1.20 (0.9-1.1); Prothrombin Time 13.1 seconds (10.1-12.5)
[2024-09-24 13:50] LABS: C-Reactive Protein 10.5 mg/L (0-4)
[2024-09-24 14:04] LABS: Procalcitonin 0.225 ng/mL (0.0-2.0)
[2024-09-24] MEDS: SODIUM CHLORIDE 2040 ML IV (14:05)
[2024-09-24] MEDS: PHARMACY CONSULT REQUEST 1 EACH NOTAPPLIC (14:07)
--- NOTE | 2024-09-24 14:08 | XR_ITS ---
FINAL REPORT CLINICAL HISTORY: Fall down stairs COMPARISON: None FINDINGS: SINGLE VIEW PELVIS: A single view of the pelvis was obtained. There is no acute fracture or dislocation. There are mild degenerative changes of the bilateral hips. The joints are intact. Soft tissues are unremarkable. NOTE: The lateral margin of the right iliac wing is not included within the [id number]. IMPRESSION: No acute bony abnormality. Reviewed, Interpreted and Dictated by Murtaza Sharp MD Transcribed by Nessa Lerma Authenticated and [facility]
[2024-09-24] MEDS: VANCOMYCIN HCL 2,500 MG in 0.9 % SODIUM CHLORIDE 500 ML 250 MG IV (14:22)
[2024-09-24] MEDS: TET/DIPHTH/PERT-ADULT 0.5ML SYRINGE 0.5 ML IM (14:27)
[2024-09-24 14:32] LABS: Microscopic, Urine URINE MICROSCOPIC (MICROSCOPIC)
[2024-09-24 14:36] LABS: Amphetamine/Metha Screen,Urine Negative ng/ml (<1000)
[2024-09-24 14:37] LABS: Barbiturates Screen,Urine Negative ng/ml (<200); Benzodiazepines Screen,Urine Negative ng/ml (<200)
[2024-09-24 14:38] LABS: Opiate Screen,Urine Negative ng/ml (<300)
[2024-09-24 14:39] LABS: Phencyclidine Screen,Urine Negative ng/ml (<25)
[2024-09-24] MEDS: PIPERACILLIN/TAZO 4.5 GM in 0.9 % SODIUM CHLORIDE 100 ML IV (14:41)
[2024-09-24 14:42] LABS: Methadone Screen,Urine Negative ng/ml (<300)
[2024-09-24 14:52] LABS: Bilirubin,Urine Negative (Negative); Color,Urine YELLOW (Yellow); Glucose,Urine (UA) Negative (Negative); Ketones,Urine Negative (Negative); Leukocyte Esterase,Urine Negative (Negative); PH,Urine 6.5 (5.0-8.5); Protein,Urine Negative (Negative); Specific Gravity, Urine <= 1.005 (1.005-1.030); Urobilinogen,Urine 2.0 EU/dl (0.2)
--- NOTE | 2024-09-24 15:06 | PC.NURSE ---
Patient alert with ongoing confusion, VSS, respirations even and unlabored. Mother at bedside. Call light in reach.
--- NOTE | 2024-09-24 15:11 | PC.NURSE ---
C-Collar removed per Dr. Bower.
--- NOTE | 2024-09-24 15:11 | PC.NURSE ---
is reaching out to the hospitalist about admission.
[2024-09-24 15:15] LABS: Bacteria,Urine 4+ /lpf
--- NOTE | 2024-09-24 15:42 | PC.NURSE ---
HS notified of the need for a bed to admit the pt.
[2024-09-24 15:52] LABS: Creatine Kinase 464 U/L (30-135)
--- NOTE | 2024-09-24 16:12 | PC.NURSE ---
Report called to Mami Mcdonald RN
--- NOTE | 2024-09-24 16:27 | PC.NURSE ---
Attempted to pull 2nd troponin for this patient and neither lines would pull
--- NOTE | 2024-09-24 17:10 | PC.WOUNDNOTE ---
OPEN AREA NOTED BETWEEN 3RD AND 4TH TOE ON LEFT FOOT
[2024-09-24 17:37] LABS: Ammonia 18 umol/L (9-30)
[2024-09-24 17:49] LABS: Troponin I 0.07 ng/ml (0.00-0.034)
--- NOTE | 2024-09-24 18:56 | EXP.HP ---
History of Present Illness *Admission Date: 09/24/24 *Reason for visit:: Fall, encephalopathy *History of present illness: Marizol Bishop is a 59-year-old female with a medical history significant for anxiety/depression on multiple psychotropic medications presents with frequent falls and a fall today down a flight of stairs. Patient states she has falls frequently, preceded by lightheadedness. Today she was walking down the steps outside of her home and felt lightheaded and stumbled down. She initially could not recall the story when she was in the ED, but she is able to do so now. However at the same time patient is having mild word finding difficulties. Denies chest pain, shortness of breath, but endorses lower abdominal pain. Workup in the ED significant for WBC 10, creatinine 1.2 (baseline 0.80) bilirubin 2.8, CK4 64, troponin 0.07, UA somewhat suggestive of UTI. Also had fever 100.[address] abdomen/pelvis shows mild stranding around the left colon suspicious for colitis/diverticulitis. She was given NS bolus and started on Zosyn. Also given Tdap. Case discussed with ED provider and decision was made to admit patient for acute metabolic encephalopathy, UTI, VITA, recurrent falls. [facility] Disclaimer: The information contained in this section may have been updated after the patient was seen, as this information can be updated by other users. Medical History Mastoiditis Asthma Ear pain Retracted ear drum Otalgia, left ear Eustachian tube dysfunction BROWN on CPAP Moderate BROWN with nocturnal hypoxemia resolved on CPAP at 12 cm, excellent compliance, no intolerance. Adjustment disorder with mixed anxiety and depressed mood Martin's health issues cause many emotions to surface as she is trying to cope/adjust to the way her life is, or will be. Most of Martin's concerns are for the care and welfare of her autistic son, if something negative should happen to her. MDD (major depressive disorder), recurrent, with melancholic features Martin shared that there are several things that she has to do differently, or give up altogether because her health issues will not allow her to do the things anymore. This has caused Martin to be sad, irritable, scared, depressed, and at times, hopeless. Generalized anxiety disorder with panic attacks Martin reported having Anxiety and Panic attacks as a little girl, and she was known as a worry-wart. Currently, her anxious symptoms have been worse since March 2020 when she became very sick and now has several serious illnesses. Lupus Ovarian cyst Moderate persistent asthma Allergic rhinitis Mild intermittent asthma History of seronegative inflammatory arthritis Inflammatory polyarthritis Wheezing Dyspnea on exertion Surgical History Status post myringotomy with insertion of tube LEFT History of surgery on lower extremity History of cholecystectomy History of esophagogastroduodenoscopy (EGD) History of colonoscopy History of tonsillectomy Family History Other Family history of cancer Heart attack Hypertension Stroke Social History (Updated 09/24/24 @ 17:36 by Mami Frias RN) Smoking Status: Never smoker alcohol intake: never substance use type: denies use current occupational status: disabled Travel in the last 8 weeks?: Inside the [place] household members: other housing: apartment lives independently: Yes marital status: single number of children: 1 Have you lived/traveled outside [place] in past 30 days?: No Contact w/someone who lives/traveled outside [place] past 30 days?: No Exposure to someone with infectious disease in past 14 days?: No Do you have a fever (greater than 100.4 F or 38 C)?: No Have you tested positive for COVID-19?: No Exposed to someone with COVID-19 in past 14 days?: No Do you have a sore throat?: No Do you have a cough?: No Do you have any weakness?: No Are you experiencing any nausea/vomitting?: Yes Do you have any diarrhea?: No Are you experiencing any unusual bleeding?: No Do you have any muscle aches/pain?: No Do you have any abdominal pain?: No Are you experiencing loss of taste or smell?: No Other Medical History Have you received the Flu Vaccine for this season: Yes Have you received the Pneumonia Vaccine: Yes Meds Home Medications and Allergies Home Medications ?Medication ?Instructions ?Recorded ?Confirmed ?Type methotrexate sodium 2.5 mg tablet 15 mg PO WEEKLY 08/09/22 09/23/24 History folic acid 1 mg tablet 1 mg PO DAILY #90 tabs 10/13/23 09/23/24 Rx pantoprazole 40 mg tablet,delayed 40 mg PO DAILY #90 tabs 10/13/23 09/23/24 Rx release valsartan 320 mg tablet 320 mg PO DAILY HTN #90 tabs 10/13/23 09/23/24 Rx albuterol sulfate 90 mcg/actuation 2 inh inhalation Q6H PRN shortness 02/12/24 09/23/24 Rx aerosol inhaler of breath or wheezing 90 days #8.5 grams levocetirizine 5 mg tablet 5 mg PO HS 02/17/24 09/23/24 History linaclotide 145 mcg capsule 145 mcg PO DIRECTED PRN 02/17/24 09/23/24 History (Linzess) Constipation azelastine 137 mcg (0.1 %) nasal 2 spray intranasal HS 90 days #30 03/11/24 09/23/24 Rx spray mL fluticasone furoate 200 1 inh inhalation DAILY 90 days #90 03/11/24 09/23/24 Rx mcg-vilanterol 25 mcg/dose ea inhalation powder (Breo Ellipta) fluticasone propionate 50 See Rx Instructions .Route 03/11/24 09/23/24 Rx mcg/actuation nasal .COMPLEX #16 grams spray,suspension ipratropium 0.5 mg-albuterol 3 mg 3 ml inhalation QID PRN shortness 03/11/24 09/23/24 Rx (2.5 mg base)/3 mL nebulization of breath or wheezing 90 days #270 soln mL montelukast 10 mg tablet See Rx Instructions .Route 03/11/24 09/23/24 Rx .COMPLEX #90 tabs gabapentin enacarbil 600 mg 600 mg PO DAILY RLS #30 tabs 05/13/24 09/23/24 Rx tablet,extended release (Horizant ER) mirtazapine 15 mg tablet (Remeron) 22.5 mg (1.5 x 15 mg) PO HS #45 05/13/24 09/23/24 Rx tabs ferrous sulfate 325 mg (65 mg 325 mg PO BID #60 tabs 05/20/24 09/23/24 Rx iron) tablet tramadol 50 mg tablet 50 mg PO Q8H PRN pain #90 tabs 05/20/24 09/23/24 Rx simvastatin 20 mg tablet 20 mg PO DAILY 06/16/24 09/23/24 History metoprolol tartrate 50 mg tablet 50 mg PO DAILY htn #180 tabs 06/17/24 09/23/24 Rx meclizine 25 mg tablet 25 mg PO TID PRN dizziness #30 tabs 06/23/24 09/23/24 Rx dasiglucagon 0.6 mg/0.6 mL mg SQ 06/28/24 09/23/24 History subcutaneous auto-injector (Zegal[place]) epinephrine 0.3 mg/0.3 mL IM 06/28/24 09/23/24 History injection, auto-injector prochlorperazine maleate 10 mg 10 mg PO Q8H PRN nausea and 07/12/24 09/23/24 Rx tablet (Compazine) vomiting #20 tabs desvenlafaxine succinate 100 mg 100 mg PO DAILY #90 tabs 07/23/24 09/23/24 Rx tablet,extended release 24 hr (Pristiq) desvenlafaxine succinate 25 mg See Rx Instructions .Route 07/23/24 09/23/24 Rx tablet,extended release 24 hr .COMPLEX #90 tabs lamotrigine 100 mg tablet 100 mg PO DAILY #90 tabs 07/23/24 09/23/24 Rx (Lamictal) metoclopramide HCl 5 mg tablet See Rx Instructions .Route 08/23/24 09/23/24 Rx .COMPLEX #90 tabs ondansetron HCl 4 mg tablet 4 mg PO Q8H PRN nausea and 08/24/24 09/23/24 Rx vomiting #20 tabs lamotrigine 25 mg tablet (Lamictal) 25 mg PO DAILY #90 tabs 09/11/24 09/23/24 Rx adalimumab 40 mg/0.8 mL See Rx Instructions SQ .COMPLEX 09/23/24 09/23/24 History subcutaneous syringe kit (Humira) New Prescriptions to Start Prescriptions: Allergies Allergy/AdvReac Type Severity Reaction Status Date / Time bee venom protein (honey bee) Allergy Severe Anaphylaxis Verified 09/23/24 09:15 shellfish derived Allergy Severe Hives Verified 09/23/24 09:15 wheat Allergy Severe Hives Verified 09/23/24 09:15 Yeast Allergy Severe Hives Verified 09/23/24 09:15 Pork/Porcine Containing Allergy Hives Verified 09/23/24 09:15 Products food allergies Allergy Severe Hives Uncoded 09/23/24 09:15 Penicillin Allergy Unknown Hives Uncoded 09/23/24 09:15 SULFA (sulfonamide) Allergy Unknown Hives Uncoded 09/23/24 09:15 Sulfamethoxazole Allergy Unknown Hives Uncoded 09/23/24 09:15 Trimethoprim Allergy Unknown Hives Uncoded 09/23/24 09:15 Exam Data for Last 24 hours Vital signs and Labs for Last 24 Hours: Temp Pulse Resp BP Pulse Ox O2 Del Method 98.8 F 102 H 19 132/74 97 Room Air 09/24/24 16:56 09/24/24 16:56 09/24/24 16:56 09/24/24 16:56 09/24/24 16:54 09/24/24 18:31 Laboratory Results - last 24 hr 09/24/24 12:36: WBC 10.0, RBC 3.79 L, Hgb 11.5 L, Hct 36.1 L, MCV 95.3, MCH 30.3, MCHC 31.9, RDW 15.6, Plt Count 143, MPV 10.9 H, Neut % (Auto) 76.9, Lymph % (Auto) 9.1 L, [place] % (Auto) 11.8 H, Eos % (Auto) 0.4, Baso % (Auto) 1.3, Neut # (Auto) 7.7, Lymph # (Auto) 0.9, [place] # (Auto) 1.2 H, Eos # (Auto) 0.0, Baso # (Auto) 0.1, PT 13.1 H, INR 1.20 H, APTT 27.9, Sodium 141, Potassium 4.0, Chloride 105, Carbon Dioxide 13 L, Anion Gap 27.0 H, BUN 13, Creatinine 1.20 H, Estimated Creat Clear 49, Estimated GFR 46 L, Est GFR ( Amer) 56 L, Glucose 170 H, Calcium 10.0, Total Bilirubin 2.8 H, AST 61 H, ALT 38, Alkaline Phosphatase 190 H, Total Creatine Kinase 464 H, Troponin I 0.03, Total Protein 8.5 H, Albumin 4.3, Globulin 4.2 H, Albumin/Globulin Ratio 1.0 L, Triglycerides 119, Cholesterol 165, LDL Cholesterol Direct 56.66 L, VLDL Cholesterol 24, HDL Cholesterol 55, Cholesterol/HDL Ratio 3.0, Plasma/Serum Alcohol < 10 09/24/24 13:25: Magnesium 1.9, C-Reactive Protein 10.5 H, Lipase 164, Procalcitonin 0.225 09/24/24 14:17: Urine Color Yellow, Urine Appearance Clear, Urine pH 6.5, Ur Specific [place] <= 1.005, Urine Protein Negative, Urine Glucose (UA) Negative, Urine Ketones Negative, Urine Blood Negative, Urine Nitrate Negative, Urine Bilirubin Negative, Urine Urobilinogen 2.0, Ur Leukocyte Esterase Negative, Urine RBC 3-5, Urine WBC 5-10, Ur Squamous Epith Cells 5-10, Urine Bacteria 4+, Urine Opiates Screen Negative, Urine Methadone Screen Negative, Ur Barbituates Screen Negative, Ur Phencyclidine Scrn Negative, Ur Amphetamines Screen Negative, U Benzodiazepines Scrn Negative, Urine Cocaine Screen Negative, U Marijuana (THC) Screen Negative 09/24/24 17:18: Ammonia 18, Troponin I 0.07 H I & O for Last 24 hours: Intake & Output 09/21/24 09/22/24 09/23/24 09/24/24 23:59 23:59 23:59 23:59 Weight 138.884 kg Constitutional Constitutional: no acute distress and obese *Routine HEENT Exam Head: Present normocephalic Eye: Present EOMI and PERRL ENT: Present mucous membranes moist *Routine Neck Exam Neck: Present supple; Absent lymphadenopathy *Routine Respiratory Exam Respiratory: Present CTA bilaterally *Routine Cardiovascular Exam Cardiovascular: Present RRR *Routine Abdominal Exam Abdominal: Present soft and normoactive bowel sounds; Absent tenderness *Routine Rectal Exam Rectal:: deferred *Routine Genitalia Exam Genitalia:: deferred *Routine Extremities Exam Extremities: Absent cyanosis, clubbing or edema *Routine Skin Exam Skin: Present warm; Absent rash *Routine Neurological Exam Neurological: Present alert Assessment and Plan *Assessment and plan (1) VITA (acute kidney injury): Status: Acute Category: Medical Code(s): N17.9 - Acute kidney failure, unspecified (2) Encephalopathy: Status: Acute Category: Medical Code(s): G93.40 - Encephalopathy, unspecified (3) Falls: Status: Acute Category: Medical Code(s): R29.6 - Repeated falls Plan Marizol Bishop is a 59-year-old female with a medical history significant for anxiety/depression on multiple psychotropic medications presents with frequent falls and a fall today down a flight of stairs. Patient states she has falls frequently, preceded by lightheadedness. Today she was walking down the steps outside of her home and felt lightheaded and stumbled down. She initially could not recall the story when she was in the ED, but she is able to do so now. However at the same time patient is having mild word finding difficulties. Denies chest pain, shortness of breath, but endorses lower abdominal pain. Workup in the ED significant for WBC 10, creatinine 1.2 (baseline 0.80) bilirubin 2.8, CK4 64, troponin 0.07, UA somewhat suggestive of UTI. Also had fever 100.[address] abdomen/pelvis shows mild stranding around the left colon suspicious for colitis/diverticulitis. She was given NS bolus and started on Zosyn. Also given Tdap. Case discussed with ED provider and decision was made to admit patient for acute metabolic encephalopathy, UTI, VITA, recurrent falls. #Sepsis #Colitis #UTI #Acute metabolic encephalopathy ? Presented after a fall preceded by lightheadedness down a flight of stairs outside her home. ? Initially tachycardic, fever 100.5 Fahrenheit, UA abnormal, colitis on CT abdomen. ? Patient has tenderness in her lower abdomen, suprapubic region. ? Started Zosyn, follow-up blood, urine cultures. ? Follow-up morning CMP, CBC. #VITA #Rhabdomyolysis ? Initial creatinine 1.2, baseline around 0.80. ? Follow-up morning CMP after IV fluids in the ED. #Lightheadedness #Recurrent falls #Polypharmacy #Anxiety/depression/mood disorder ? Patient endorses multiple falls in the past few months usually preceded by lightheadedness. ? At this time, home medications are being reconciled. But patient takes multiple psychotropic medications and blood pressure medications which may be contributing to polypharmacy/falls. ? Plan to evaluate these medications once reconciled. ? PT/OT consulted, pending further recommendations. Full code DVT prophylaxis: Lovenox 40 mg twice daily
[2024-09-24 20:56] LABS: Troponin I 0.06 ng/ml (0.00-0.034)
[2024-09-25] MEDS: PIPERACILLIN/TAZO 4.5 GM in 0.9 % SODIUM CHLORIDE 100 ML IV ×3 (01:47→16:04)
[2024-09-25 04:00] VITALS: BP 130/64; PULSE 86; RESP 12; TEMP 36.9; O2SAT 91; BMI 48.1
[2024-09-25 07:37] LABS: Hematocrit 30.6 % (37.0-47.0); Immature Granulocytes % 0.4 %; Mean Corpuscular HGB Conc 31.4 g/dL (31.8-35.4); Mean Corpuscular Hemoglobin 30.3 pg (27.0-31.2); Mean Corpuscular Volume 96.5 fl (81-99); Nucleated Red Blood Cells % 0 %; Platelet Count 69 K/mm3 (142-424); Red Blood Count 3.17 M/mm3 (4.20-5.40); Red Cell Distribution Width-SD 54.8 fL; White Blood Count 5.7 K/mm3 (4.8-10.8)
[2024-09-25 08:00] VITALS: BP 161/76; PULSE 90; PULSE 91; RESP 18; TEMP 36.9; O2SAT 97
[2024-09-25 08:16] LABS: Alanine Aminotransferase 25 U/L (12-78); Albumin Level 3.2 g/dl (3.5-5.0); Albumin/Globulin Ratio 1.1 (1.1-1.8); Alkaline Phosphatase 125 U/L (38-126); Anion Gap 9.6 mEq/L (5-15); Aspartate Amino Transferase 88 U/L (14-36); Bilirubin,Total 1.9 mg/dl (0.2-1.3); Blood Urea Nitrogen 13 mg/dl (7-17); Calcium 9.3 mg/dl (8.4-10.2); Carbon Dioxide 21 mmol/L (22.0-30.0); Chloride 113 mmol/L (98-107); Creatinine Clearance Estimated 63 mL/min (50-200); Creatinine,Serum 0.90 mg/dl (0.52-1.04); Estimated Glomerular Filt Rate 64 ml/min (>60); GFR (African American) 78 ML/MIN (>60); Globulin 3.0 g/dL (1.3-3.2); Glucose 94 mg/dl (74-100); Magnesium 2.0 mg/dl (1.6-2.3); Potassium 3.6 mmoL/L (3.5-5.1); Sodium 140 mmol/L (136-145); Total Protein,Serum 6.2 g/dl (6.3-8.2)
[2024-09-25 08:18] LABS: Hemoglobin 9.6 g/dL (12.2-16.2)
[2024-09-25] MEDS: ACETAMINOPHEN 325MG TAB 650 MG PO (08:45)
--- NOTE | 2024-09-25 10:16 | PC.NURSE ---
per foam rubber fabricator RN pt is unaware of medications that she takes. her mom is to assist in completing med rec when she comes later.
[2024-09-25 12:00] VITALS: PULSE 90
--- NOTE | 2024-09-25 12:17 | HMH.PTEV ---
Physical Therapy Evaluation Rehab PT IP Evaluation Start: 09/24/24 17:40 Freq: .once Status: Active Protocol: Document 09/25/24 12:07 TRAVON (Rec: 09/25/24 12:16 TRAVON [id number]) Subjective/History History History Per H&P, Marizol Bishop is a 59-year-old female with a medical history significant for anxiety/depression on multiple psychotropic medications presents with frequent falls and a fall today down a flight of stairs . Patient states she has falls frequently, preceded by lightheadedness. Today she was walking down the steps outside of her home and felt lightheaded and stumbled down. She initially could not recall the story when she was in the ED, but she is able to do so now. However at the same time patient is having mild word finding difficulties. Denies chest pain, shortness of breath, but endorses lower abdominal pain. Workup in the ED significant for WBC 10, creatinine 1.2 (baseline 0.80) bilirubin 2.8, CK4 64, troponin 0.07, UA somewhat suggestive of UTI. Also had fever 100.[address] abdomen/pelvis shows mild stranding around the left colon suspicious for colitis/ diverticulitis. She was given NS bolus and started on Zosyn. Also given Tdap. Case discussed with ED provider and decision was made to admit patient for acute metabolic encephalopathy, UTI, VITA, recurrent falls. Subjective Subjective The pt is alert and oriented to person and place but not time. Pt appears to be poor historian. She reports that she lives in a home with her 20 year old autistic son. The pt reports that she has 15 NISHI. Reports that her mom checks on her a few times a week. Pt reports that she has had 2-3 falls in the past 2 months with the worst one being the fall that brought her to the ED . Pt reports that she sometimes uses a walker but only seldomly. Reports that most of the time, she uses no AD . Reports that she was IND with all mobility, ADLs, and self-care prior to hospitalization. New diagnosis of No cancer in past 12 months? [facility] How much help from another person do you currently need... Turning from your A little back to your side while in a flat bed without using bedrails? Moving from lying on A little back to sitting on the side of a flat bed without using bedrails? Moving to and from a A little bed to a chair ( including a wheelchair)? Standing up from a A little chair using your arms? (e.g., wheelchair, bedside chair) Walking in hospital A little room? Climbing 3-5 steps A lot with a railing? Mobility Score 17 Mobility Level [facility] Mobility 5 Stand (1 or more minutes) Mobility Calculator Rehab PT IP Eval Objective Appearance Patient Behavior Appropriate,Patient Baseline Patient Orientation Person,Place Difficulty following none instructions Speech Pattern Clear,Patient Baseline Ambulation Patient Able to Yes Ambulate Ambulation Observation IP General Gait Wide Based Gait Pattern Observation Ambulation Distance 25 (feet) Ambulation Assistive None Device Ambulation Ability Contact Guard/Hand Hold Balance Ability to Arise Able, uses arms to help Sitting Balance Leans or slides in chair Standing Balance Steady, wide stance Dynamic Sitting Good Balance Ability Dynamic Standing Fair Balance Ability Transfers Bed Transfer Ability Minimal x 1 (25% assist) Chair Transfer Contact Guard/Hand Hold Ability Sit to Stand Bed Contact Guard/Hand Hold Transfer Ability Sit to Stand Chair Contact Guard/Hand Hold Transfer Ability Rehab PT IP prob,goals,plan Problems Date of Evaluation: 09/25/24 PT IP Problems Bed Mobility,Transfers,Gait,Balance,Self care,Safety Rehab Potential Rehab Potential Good Equipment Needs Assistive Devices None / NA Plan PT Intervention Plan Bed Mobility,Transfers,Gait,Balance,Self care,Safety, Therapeutic Exercise PT Plan Frequency Daily Duration LOS Discharge Goals Bed Transfer Ability Independent Sit to Stand Chair Independent Transfer Ability Ambulation Assistive None Device Ambulation Distance 75 (feet) Discharge Plan PT Discharge Plan When deemed medically stable, the pt presents safe for discharge to home with 24 hr assist. If the patient does not have 24 hr assist, then the pt would better benefit from further Rehab prior to going home. The pt would also benefit from skilled PT during her acute stay, to address her current impairments, promote a return to her PLOF and to prepare for a safe discharge to home. Eval Complexity Eval Charge Codes 56284 - High Complexity PHYSICIAN CERTIFICATION: I certify the specified therapy services for Marizol Bishop are required, authorized, and reviewed every 30 days.
[2024-09-25 16:00] VITALS: PULSE 110
--- NOTE | 2024-09-25 16:19 | EXP.DC.SUM ---
General Admission date:: 09/24/24 HPI HPI HPI: Marizol Bishop is a 59-year-old female with a medical history significant for anxiety/depression on multiple psychotropic medications presents with frequent falls and a fall today down a flight of stairs. Patient states she has falls frequently, preceded by lightheadedness. Today she was walking down the steps outside of her home and felt lightheaded and stumbled down. She initially could not recall the story when she was in the ED, but she is able to do so now. However at the same time patient is having mild word finding difficulties. Denies chest pain, shortness of breath, but endorses lower abdominal pain. Workup in the ED significant for WBC 10, creatinine 1.2 (baseline 0.80) bilirubin 2.8, CK4 64, troponin 0.07, UA somewhat suggestive of UTI. Also had fever 100.[address] abdomen/pelvis shows mild stranding around the left colon suspicious for colitis/diverticulitis. She was given NS bolus and started on Zosyn. Also given Tdap. Case discussed with ED provider and decision was made to admit patient for acute metabolic encephalopathy, UTI, VITA, recurrent falls. Hospital Course Hospital Course Hospital Course: Marizol Bishop is a 59-year-old female with a medical history significant for anxiety/depression on multiple psychotropic medications presents with frequent falls and a fall today down a flight of stairs. Patient states she has falls frequently, preceded by lightheadedness. Today she was walking down the steps outside of her home and felt lightheaded and stumbled down. She initially could not recall the story when she was in the ED, but she is able to do so now. However at the same time patient is having mild word finding difficulties. Denies chest pain, shortness of breath, but endorses lower abdominal pain. Workup in the ED significant for WBC 10, creatinine 1.2 (baseline 0.80) bilirubin 2.8, CK4 64, troponin 0.07, UA somewhat suggestive of UTI. Also had fever 100.[address] abdomen/pelvis shows mild stranding around the left colon suspicious for colitis/diverticulitis. She was given NS bolus and started on Zosyn. Also given Tdap. Case discussed with ED provider and decision was made to admit patient for acute metabolic encephalopathy, UTI, VITA, recurrent falls. #Sepsis #Colitis #UTI #Acute metabolic encephalopathy ? Presented after a fall preceded by lightheadedness down a flight of stairs outside her home. ? Initially tachycardic, fever 100.5 Fahrenheit, UA abnormal, colitis on CT abdomen. ? Patient had tenderness in her lower abdomen, suprapubic region with significant improvement today. No longer febrile. ? Clinically improved with Zosyn. Transition to levofloxacin, metronidazole for 6 more days. ? Advised to follow-up with PCP within 1 week. #VITA #Rhabdomyolysis ? Initial creatinine 1.2, baseline around 0.80. Improved with IV fluid resuscitation. #Lightheadedness #Recurrent falls #Polypharmacy #Anxiety/depression/mood disorder ? Patient endorses multiple falls in the past few months usually preceded by lightheadedness. ? Polypharmacy likely contributing. Decreased Effexor 125 mg to 100 mg, lamotrigine from 125 mg to 100 mg, discontinue metoprolol tartrate, reduce valsartan from 320 mg to 160 mg. Orthostatic vitals normal on days of discharge. ? PT/OT consulted, recommended home with 30/09 assistance with family. Lives with mother, son, grandson. Exam Data for Last 24 hours Vital signs and Labs for Last 24 Hours: Temp Pulse Resp BP Pulse Ox O2 Del Method 98.5 F 90 18 161/76 H 97 Room Air 09/25/24 08:00 09/25/24 12:00 09/25/24 08:00 09/25/24 08:00 09/25/24 08:00 09/25/24 15:00 Laboratory Results - last 24 hr 09/24/24 14:17: Urine Color Yellow, Urine Appearance Clear, Urine pH 6.5, Ur Specific [place] <= 1.005, Urine Protein Negative, Urine Glucose (UA) Negative, Urine Ketones Negative, Urine Blood Negative, Urine Nitrate Negative, Urine Bilirubin Negative, Urine Urobilinogen 2.0, Ur Leukocyte Esterase Negative, Urine RBC 3-5, Urine WBC 5-10, Ur Squamous Epith Cells 5-10, Urine Bacteria 4+ 09/24/24 17:18: Ammonia 18, Troponin I 0.07 H 09/24/24 20:26: Troponin I 0.06 H 09/25/24 06:40: WBC 5.7 D, RBC 3.17 L, Hgb 9.6 L D, Hct 30.6 L, MCV 96.5, MCH 30.3, MCHC 31.4 L, RDW 15.6, Plt Count 69 L D, MPV 10.0, Neut % (Auto) 54.9, Lymph % (Auto) 21.1, [place] % (Auto) 18.8 H, Eos % (Auto) 3.7, Baso % (Auto) 1.1, Neut # (Auto) 3.1, Lymph # (Auto) 1.2, [place] # (Auto) 1.1 H, Eos # (Auto) 0.2, Baso # (Auto) 0.1, Sodium 140, Potassium 3.6, Chloride 113 H, Carbon Dioxide 21 L, Anion Gap 9.6, BUN 13, Creatinine 0.90 D, Estimated Creat Clear 63, Estimated GFR 64, Est GFR ( Amer) 78 D, Glucose 94 D, Calcium 9.3, Magnesium 2.0, Total Bilirubin 1.9 H, AST 88 H D, ALT 25 D, Alkaline Phosphatase 125, Total Protein 6.2 L D, Albumin 3.2 L D, Globulin 3.0, Albumin/Globulin Ratio 1.1 I & O for Last 24 hours: Intake & Output 09/22/24 09/23/24 09/24/24 09/25/24 23:59 23:59 23:59 23:59 Intake Total 880 / 880 Output Total 600 / 600 Balance 280 / 280 Weight 138.884 kg 139.117 kg Microbiology Reports for the Last 24 Hours: Microbiology 09/24/24 14:05 Blood Blood Culture - Preliminary NO GROWTH AFTER 24 HOURS 09/24/24 14:12 Blood Blood Culture - Preliminary NO GROWTH AFTER 24 HOURS 09/24/24 14:17 Urine,Clean Catch Urine Culture - Preliminary Gram Negative Rods Constitutional Constitutional: no acute distress and obese *Routine HEENT Exam Head: Present normocephalic Eye: Present EOMI and PERRL ENT: Present mucous membranes moist *Routine Neck Exam Neck: Present supple; Absent lymphadenopathy *Routine Respiratory Exam Respiratory: Present CTA bilaterally *Routine Cardiovascular Exam Cardiovascular: Present RRR *Routine Abdominal Exam Abdominal: Present soft and normoactive bowel sounds; Absent tenderness *Routine Extremities Exam Extremities: Absent cyanosis, clubbing or edema *Routine Skin Exam Skin: Present warm; Absent rash *Routine Neurological Exam Neurological: Present alert and oriented X3 Results Data Completed and Pending Labs on day of discharge: Labs from last 24 hours 09/25/24 09/24/24 09/24/24 06:40 20:26 17:18 WBC 5.7 D RBC 3.17 L Hgb 9.6 L D Hct 30.6 L MCV 96.5 MCH 30.3 MCHC 31.4 L RDW 15.6 Plt Count 69 L D MPV 10.0 Neut % (Auto) 54.9 Lymph % (Auto) 21.1 [place] % (Auto) 18.8 H Eos % (Auto) 3.7 Baso % (Auto) 1.1 Neut # (Auto) 3.1 Lymph # (Auto) 1.2 [place] # (Auto) 1.1 H Eos # (Auto) 0.2 Baso # (Auto) 0.1 Sodium 140 Potassium 3.6 Chloride 113 H Carbon Dioxide 21 L Anion Gap 9.6 BUN 13 Creatinine 0.90 D Estimated Creat Clear 63 Estimated GFR 64 Est GFR ( Amer) 78 D Glucose 94 D Calcium 9.3 Magnesium 2.0 Total Bilirubin 1.9 H AST 88 H D ALT 25 D Alkaline Phosphatase 125 Ammonia 18 Troponin I 0.06 H 0.07 H Total Protein 6.2 L D Albumin 3.2 L D Globulin 3.0 Albumin/Globulin Ratio 1.1 Urine Color Urine Appearance Urine pH Ur Specific [place] Urine Protein Urine Glucose (UA) Urine Ketones Urine Blood Urine Nitrate Urine Bilirubin Urine Urobilinogen Ur Leukocyte Esterase Urine RBC Urine WBC Ur Squamous Epith Cells Urine Bacteria 09/24/24 14:17 WBC RBC Hgb Hct MCV MCH MCHC RDW Plt Count MPV Neut % (Auto) Lymph % (Auto) [place] % (Auto) Eos % (Auto) Baso % (Auto) Neut # (Auto) Lymph # (Auto) [place] # (Auto) Eos # (Auto) Baso # (Auto) Sodium Potassium Chloride Carbon Dioxide Anion Gap BUN Creatinine Estimated Creat Clear Estimated GFR Est GFR ( Amer) Glucose Calcium Magnesium Total Bilirubin AST ALT Alkaline Phosphatase Ammonia Troponin I Total Protein Albumin Globulin Albumin/Globulin Ratio Urine Color Yellow Urine Appearance Clear Urine pH 6.5 Ur Specific [place] <= 1.005 Urine Protein Negative Urine Glucose (UA) Negative Urine Ketones Negative Urine Blood Negative Urine Nitrate Negative Urine Bilirubin Negative Urine Urobilinogen 2.0 Ur Leukocyte Esterase Negative Urine RBC 3-5 Urine WBC 5-10 Ur Squamous Epith Cells 5-10 Urine Bacteria 4+ Preliminary micro results at discharge 09/24/24 14:05 Blood Culture - Preliminary Blood NO GROWTH AFTER 24 HOURS 09/24/24 14:12 Blood Culture - Preliminary Blood NO GROWTH AFTER 24 HOURS 09/24/24 14:17 Urine Culture - Preliminary Urine,Clean Catch Gram Negative Rods DS: Diagnosis Discharge Diagnosis (1) VITA (acute kidney injury): Status: Acute Code(s): N17.9 - Acute kidney failure, unspecified (2) Encephalopathy: Status: Acute Code(s): G93.40 - Encephalopathy, unspecified (3) Falls: Status: Acute Code(s): R29.6 - Repeated falls Meds Home Medications and Allergies Home Medications ?Medication ?Instructions ?Recorded ?Confirmed ?Type methotrexate sodium 2.5 mg tablet 15 mg PO WEEKLY 08/09/22 09/25/24 History folic acid 1 mg tablet 1 mg PO DAILY #90 tabs 10/13/23 09/25/24 Rx levocetirizine 5 mg tablet 5 mg PO HS 02/17/24 09/25/24 History linaclotide 145 mcg capsule 145 mcg PO 0700 PRN Constipation 02/17/24 09/25/24 History (Linzess) fluticasone furoate 200 1 inh inhalation DAILY 90 days #90 03/11/24 09/25/24 Rx mcg-vilanterol 25 mcg/dose ea inhalation powder (Breo Ellipta) mirtazapine 15 mg tablet (Remeron) 22.5 mg (1.5 x 15 mg) PO HS #45 05/13/24 09/25/24 Rx tabs ferrous sulfate 325 mg (65 mg 325 mg PO BID #60 tabs 05/20/24 09/25/24 Rx iron) tablet simvastatin 20 mg tablet 20 mg PO HS 06/16/24 09/25/24 History dasiglucagon 0.6 mg/0.6 mL 0.6 mg SQ Q3MINP PRN Anaphylaxis 06/28/24 09/25/24 History subcutaneous auto-injector (Zegalogue) desvenlafaxine succinate 100 mg 100 mg PO DAILY #90 tabs 07/23/24 09/25/24 Rx tablet,extended release 24 hr (Pristiq) lamotrigine 100 mg tablet 100 mg PO DAILY #90 tabs 07/23/24 09/25/24 Rx (Lamictal) ondansetron HCl 4 mg tablet 4 mg PO Q8H PRN nausea and 08/24/24 09/25/24 Rx vomiting #20 tabs adalimumab 40 mg/0.8 mL 40 mg SQ .EVERY 2 WEEKS 09/23/24 09/25/24 History subcutaneous syringe kit (Humira) albuterol sulfate 90 mcg/actuation 2 inh inhalation Q6HP PRN 09/25/24 09/25/24 History aerosol inhaler shortness of breath or wheezing azelastine 137 mcg (0.1 %) nasal 2 spray intranasal BIDP PRN 09/25/24 09/25/24 History spray Congestion fluticasone propionate 50 1 spray intranasal DAILY 09/25/24 09/25/24 History mcg/actuation nasal spray,suspension gabapentin enacarbil 600 mg 600 mg PO 1700 RLS 09/25/24 09/25/24 History tablet,extended release (Horizant ER) levofloxacin 750 mg tablet 750 mg PO DAILY 6 days #6 tabs 09/25/24 Rx meclizine 25 mg tablet 25 mg PO TIDP PRN dizziness 09/25/24 09/25/24 History metoclopramide HCl 5 mg tablet 5 mg PO TIDP PRN Stomach Upset 09/25/24 09/25/24 History (Reglan) metronidazole 500 mg tablet 500 mg PO Q8H 6 days #18 tabs 09/25/24 Rx montelukast 10 mg tablet 10 mg PO HS 09/25/24 09/25/24 History pantoprazole 40 mg tablet,delayed 40 mg PO 0700 09/25/24 09/25/24 History release tramadol 50 mg tablet 50 mg PO Q8HP PRN pain 09/25/24 09/25/24 History valsartan 320 mg tablet 160 mg (1/2 x 320 mg) PO DAILY HTN 09/25/24 09/25/24 Rx #90 tabs New Prescriptions to Start Prescriptions: levoSigifredo Ac metronidazole Sigifredo Coles Allergies Allergy/AdvReac Type Severity Reaction Status Date / Time bee venom protein (honey bee) Allergy Severe Anaphylaxis Verified 09/23/24 09:15 shellfish derived Allergy Severe Hives Verified 09/23/24 09:15 wheat Allergy Severe Hives Verified 09/23/24 09:15 Yeast Allergy Severe Hives Verified 09/23/24 09:15 Pork/Porcine Containing Allergy Hives Verified 09/23/24 09:15 Products food allergies Allergy Severe Hives Uncoded 09/23/24 09:15 Penicillin Allergy Unknown Hives Uncoded 09/23/24 09:15 SULFA (sulfonamide) Allergy Unknown Hives Uncoded 09/23/24 09:15 Sulfamethoxazole Allergy Unknown Hives Uncoded 09/23/24 09:15 Trimethoprim Allergy Unknown Hives Uncoded 09/23/24 09:15 Discharge Plan Disposition Patient Disposition: Home, Self-Care Condition: Fair Follow up Plan Follow up with: Dru Giles MD [Primary Care Provider, Family Practice] - Enter time for follow up Referral Note: Please call for appointment. Prescriptions/Medication Reconciliation: New levofloxacin 750 mg tablet 750 mg PO DAILY 6 Days Qty: 6 0RF metronidazole 500 mg tablet 500 mg PO Q8H 6 Days Qty: 18 0RF Continued folic acid 1 mg tablet 1 mg PO DAILY Qty: 90 3RF desvenlafaxine succinate [Pristiq] 100 mg tablet extended release 24 hr 100 mg PO DAILY Qty: 90 2RF lamotrigine [Lamictal] 100 mg tablet 100 mg PO DAILY Qty: 90 2RF methotrexate sodium 2.5 mg tablet 15 mg PO WEEKLY fluticasone furoate-vilanterol [Breo Ellipta] 200-25 mcg/dose blister with device 1 inh inhalation DAILY 90 Days Qty: 90 2RF levocetirizine 5 mg tablet 5 mg PO HS Linzess 145 mcg capsule 145 mcg PO 0700 PRN (Reason: Constipation) Patient Comments: TAKE ONE CAPSULE BY MOUTH EVERY DAY BEFORE breakfast Zegalogue Autoinjector 0.6 mg/0.6 mL auto-injector 0.6 mg SQ Q3MINP PRN (Reason: Anaphylaxis) Patient Comments: USE DIRECTED NEEDED with epipen FOR anaphylactic reactions Humira 40 mg/0.8 mL syringe kit 40 mg SQ .EVERY 2 WEEKS Rx Instructions: inject one - 40 mg/0.8 mL syringe every 2 weeks SQ ondansetron HCl 4 mg tablet 4 mg PO Q8H PRN (Reason: nausea and vomiting) Qty: 20 0RF mirtazapine [Remeron] 15 mg tablet 22.5 mg PO HS Qty: 45 2RF ferrous sulfate 325 mg (65 mg iron) tablet 325 mg PO BID Qty: 60 0RF azelastine 137 mcg (0.1 %) spray,non-aerosol 2 spray intranasal BIDP PRN (Reason: Congestion) Rx Instructions: administer into each nostril albuterol sulfate 90 mcg/actuation HFA aerosol inhaler 2 inh IH Q6HP PRN (Reason: shortness of breath or wheezing) metoclopramide HCl [Reglan] 5 mg tablet 5 mg PO TIDP PRN (Reason: Stomach Upset) Rx Instructions: TAKE 1 TABLET BY MOUTH ONCE DAILY FOR GERD meclizine 25 mg tablet 25 mg PO TIDP PRN (Reason: dizziness) fluticasone propionate 50 mcg/actuation spray,suspension 1 spray intranasal DAILY Rx Instructions: USE 2 SPRAYS IN EACH NOSTRIL ONCE DAILY Horizant 600 mg tablet extended release 600 mg PO 1700 Rx Instructions: 600 mg at 5 PM tramadol 50 mg tablet 50 mg PO Q8HP PRN (Reason: pain) pantoprazole 40 mg tablet,delayed release (DR/EC) 40 mg PO 0700 montelukast 10 mg tablet 10 mg PO HS Rx Instructions: TAKE 1 TABLET BY MOUTH EVERY EVENING FOR ALLERGIES simvastatin 20 mg Tablet 20 mg PO HS Changed valsartan 320 mg tablet 160 mg PO DAILY Qty: 90 3RF Discontinued metoprolol tartrate 50 mg tablet 50 mg PO DAILY Qty: 180 3RF lamotrigine [Lamictal] 25 mg tablet 25 mg PO DAILY Qty: 90 0RF Rx Instructions: Take with Lamictal 100 mg daily. desvenlafaxine succinate 25 mg tablet extended release 24 hr 25 mg PO DAILY Rx Instructions: TAKE ONE TABLET BY MOUTH EVERY DAY Problem Reconciliation Problems Reviewed?: Yes Patient Discharge Instructions Patient Instructions: Acute Kidney Injury, DI for Encephalopathy Print Language: Lao Providers Primary Care Provider: Dru Giles Provider: Sigifredo Coles Attending Provider: Sigifredo Coles
[2024-09-25 16:20] VITALS: BP 156/60; BP 160/67; BP 166/88; PULSE 116; PULSE 94; PULSE 96
--- NOTE | 2024-09-26 12:00 | PC.NURSE ---
pts final urine culture forwarded to the hospitalist at the pt was admitted.
--- NOTE | 2024-09-27 10:45 | SW/DCPLANNER ---
Addendum entered by Gloria Stanford 09/27/24 13:26: [facility] is able to accept patient. Tommy Buck Original Note: Spoke with patient on the phone. Patient stated that she is doing good. Patient stated that she is doing good. Patient stated that she was fixing to call her PCP to schedule a follow up. Patient stated that she was able to get her new medicine picked. Patient stated that she has no cocnerns or questions at this time. Patient stated that she is interested in home health services and that she has no preference in what agency i send her information to. Once i send and hear back from [facility] i will update if they are able to accept patient or not. Tommy Buck
== END 2024-09-25 17:54 | disposition home or self-care (01) ==
LOC: ER 13:00 → 2ND 17:01
PROVIDERS: Nurse Practitioner; Admitting Provider Student in an Organized Health Care Education/Training Program; Emergency Provider Student in an Organized Health Care Education/Training Program; PCP Family Medicine; Visit Provider Student in an Organized Health Care Education/Training Program
DX: N17.9 Acute kidney failure, unspecified (principal); G93.41 Metabolic encephalopathy; R29.6 Repeated falls; I10 Essential (primary) hypertension; E66.9 Obesity, unspecified; Z68.42 Body mass index [BMI] 45.0-49.9, adult; G47.33 Obstructive sleep apnea (adult) (pediatric); F43.23 Adjustment disorder with mixed anxiety and depressed mood; F41.0 Panic disorder [episodic paroxysmal anxiety]; A41.9 Sepsis, unspecified organism; K52.9 Noninfective gastroenteritis and colitis, unspecified; N39.0 Urinary tract infection, site not specified; M62.82 Rhabdomyolysis; R42 Dizziness and giddiness; G62.9 Polyneuropathy, unspecified; Z23 Encounter for immunization; Z79.631 Long term (current) use of antimetabolite agent; Z79.83 Long term (current) use of bisphosphonates; Z79.51 Long term (current) use of inhaled steroids; Z79.620 Long term (current) use of immunosuppressive biologic; Z79.899 Other long term (current) drug therapy; Z91.030 Bee allergy status; Z91.013 Allergy to seafood; Z91.018 Allergy to other foods; Z88.0 Allergy status to penicillin; Z88.2 Allergy status to sulfonamides; Z80.8 Family history of malignant neoplasm of other organs or systems; Z82.49 Family history of ischemic heart disease and other diseases of the circulatory system; Z82.3 Family history of stroke; Z88.8 Allergy status to other drugs, medicaments and biological substances
CPT/HCPCS: 36415; 70450; 70496; 70498; 71275; 72125; 72128; 72131; 72170; 73560; 73620; 74174; 80053; 80061; 80307; 80320; 81001; 82140; 82550; 83690; 83735; 84145; 84484; 85025; 85610; 85730; 86140; 87040; 87086; 87088; 87186; 90471; 90715; 93005; 96365; 96366; 96367; 96375; 96376; 97163; 99291; G0378; J1650; J2543; J3373; J7030; J7040; Q9967

== ENCOUNTER 2024-10-20 09:58 | Outpatient (CLI) | payer MEDICARE, MEDICAID, SELFPAY ==
--- OUTSIDE RECORDS SUMMARY | 2024-08-23 10:00 | XMS_ITS | Encounter Summary ---
Author Organization [facility] Address [address] [id number] Care Team Providers Care Property Master Name Role Phone Dru Giles MD Primary Care Provider [phone] Reason for Referral * Imaging (Routine) - Closed Specialty Diagnoses / Procedures Referred By Giana lo Referred To Contact Gastroenterology Diagnoses Gastroesophageal reflux disease, unspecified whether esophagitis present History of cirrhosis Bilious vomiting with nausea Procedures EGD Saul Encinas PA [address] [address] Phone: tel: fax: Referral ID Status Reason Start Date Expiration Date V isits Requested Visits Authorized [id number] Closed Specialty Services Required 08/24/2024 02/23/2026 1 1 * Consultation (Routine) - Authorized Specialty Diagnoses / Procedures Referred By Giana lo Referred To Contact Diagnoses Gastroesophageal reflux disease, unspecified whether esophagitis present Chronic constipation Saul Encinas PA [address] [facility] [address] [place] [address] Phone: tel: fax: Referral ID Status Reason Start Date Expiration Date V isits Requested Visits Authorized [id number] Authorized 08/23/2024 02/22/2026 1 1 Reason for Visit * Reason Comments Chronic constipation Pelvic floor dysfunction in female Encounter Details Date Type Department Care Team (Latest Contact Info) Description 08/23/2024 10:00 AM EDT [facility] [address] [place] [address] Saul Encinas PA [address] [place] [address] Gastroesophageal reflux disease, unspecified whether esophagitis present (Primary Dx); Chronic constipation; History of cirrhosis; Bilious vomiting with nausea Social History Tobacco Use Types Packs/Day Years Used Date Smoking Tobacco: Never Passive Smoke Exposure: Never Smokeless Tobacco: Never Alcohol Use Standard Drinks/Week Comments Not Currently 0 (1 standard drink = 0.6 oz pur e alcohol) PHQ-2 Answer Date Recorded Patient Health Questionnaire-2 Score 0 08/23/2024 PHQ-9 Answer Date Recorded Patient Health Questionnaire-9 Score 0 08/23/2024 PHQ-2A Answer Date Recorded Patient Health Questionnaire-2 Score 0 01/23/2023 Comments No Sex and Gender Information Value Date Recorded Sex Assigned at Not on file Legal Sex Female 8:47 PM EDT Gender Identity Not on file Sexual Orientation Not on file documented as of this encounter Last Filed Vital Signs Vital Sign Reading Time Taken Comments Blood Pressure 132/80 08/23/2024 9:44 AM EDT Pulse 67 08/23/2024 9:44 AM EDT Temperature 36.5 C (97.7 F) 08/23/2024 9:44 AM EDT Respiratory Rate - - Oxygen Saturation 97% 08/23/2024 9:44 AM EDT Inhaled Oxygen Concentration - - Weight 143 kg (315 lb 4.1 oz) 08/23/2024 9:44 AM EDT Height 170.2 cm (5' 7 ) 08/23/2024 9:44 AM EDT Body Mass Index 49.38 08/23/2024 9:44 AM EDT documented in this encounter Functional Status * Over the past 2 weeks, how often have you been bothered by any of the following problems? Question Answer Date of Assessment Author Little interest or pleasure in doing things Not at all 08/23/2024 9:43 AM EDT Heck, Tempest A Feeling down, depressed, or hopeless Not at all 08/23/2024 9:43 AM EDT Maria R Tempest A Patient Health Questionnaire -2 Score 0 08/23/2024 9:43 AM EDT Maria R Tempest A * Question Answer Date of Assessment Author Trouble falling or staying asleep, or sleeping too much Not at all 08/23/2024 9:43 AM EDT Heck, Tempest A Feeling tired or having santos le energy Not at all 08/23/2024 9:43 AM EDT Heck, Tempest A Poor appetite or overeating Not at all 08/23/2024 9: 43 AM EDT Heck, Tempest A Feeling bad about yourself - or that you are a failure or have let yourself or your family down Not at all 08/23/2024 9:43 AM EDT Jas khan Tempest A Trouble concentrating on thi ngs, such as reading the newspaper or watching television Not at all 08/23/2024 9:43 AM EDT Maria R Tempest A Moving or speaking so slowly that other people could have noticed? Or the opposite - being so fidgety or restless that you have been moving around a lot more than usual. Not at all 08/23/2024 9:43 AM EDT Maria R Tempest A Thoughts that you would be b luis enrique off or hurting yourself in some way Not at all 08/23/2024 9:43 AM EDT Maria R Tempest A Patient Health Questionnaire -9 Score 0 08/23/2024 9:43 AM EDT Maria R Tempest A * If you checked off any problems on this questionnaire so far, Question Answer Date of Assessment Author How difficult have these problems made it for you to do your work, take care of things at home, or get along with other people? Not difficult at all 08/23/2024 9:43 AM EDT Braulio Heckpest A documented as of this encounter Miscellaneous Notes * Addendum Note - Saul Encinas PA - 08/23/2024 10:00 AM EDTAddended by: SAUL ENCINAS on: 08/24/2024 01:58 PM Modules accepted: Orders * Progress Notes - Saul Encinas PA - 08/23/2024 10:00 AM EDT Subjective Patient ID: Marizol Bishop is a 59 y.o. female. Chief Complaint Patient presents with Chronic constipation Pelvic floor dysfunction in female HPI The following portions of the chart were reviewed this encounter and updated as appropriate: Tobacco Allergies Meds Problems Med Hx Surg Hx Fam Hx Pt is a pleasant 59 y/o followed by GI hx of PF dysfunction/constipation/diarrhea (previously seen by AMELIE Bee). Follows with Hepatology for [facility] Cirrhosis. Last OV : Referral to PFPT Try linzess 145mcg 30 ac in am if causes diarrhea try every other day Hold miralax for 3 days, if w/ linzess alone still constipated, add back daily capful Since last OV has followed with ID for work up of fevers and rash, now improved; had UTI in May PMHx of tophaceous polyarticular gout, inflammatory polyarthritis, HTN, HLD, pancreatitis, BROWN, GERD, morbid obesity, and diarrhea. Per review of last GI office noted on Pantoprazole BID and GERD sx well controlled. Hx of wheat, pork, shellfish and yeast allergies and on a strict gluten free diet Ordered calprotectin 10/22/23 at [facility] CTE 12/17/13: No evidence of inflammatory bowel disease. Cirrhosis and mild splenomegaly. No ascites. MRAbd w and w/o1: Normal pancreas. No pancreatic ductal dilatation. Portal hypertension as evidence by splenomegaly, and portosystemic collaterals. No ascites. Had cscope 05/31/21: adequate prep The terminal ileum appeared normal. Performed random biopsy. The entire colon appeared normal. Performed random biopsy. Few small diverticula in the sigmoid colon EGD 05/31/21 The upper third of the esophagus, middle third of the esophagus and lower third of the esophagus appeared normal. Z-line is 40 cm from the incisors. A few semi-pedunculated polyps measuring smaller than 5 mm in the body of the stomach The cardia, fundus of the stomach, body of the stomach, incisura, antrum, prepyloric region and pylorus appeared normal. The duodenal bulb and 2nd part of the duodenum appeared normal. A. DUODENUM, BIOPSY: - NO EVIDENCE OF CELIAC DISEASE; NO ORGANISMS IDENTIFIED B. STOMACH, BIOPSY: - REACTIVE GASTROPATHY - FUNDIC GLAND POLYPS - NEGATIVE FOR H. PYLORI ORGANISMS ON H&E-STAINED SECTIONS C. TERMINAL ILEUM, BIOPSY: - NO HISTOPATHOLOGIC ABNORMALITY D. COLON, RANDOM BIOPSIES: -NO HISTOPATHOLOGIC ABNORMALITY Capsule endoscopy 07/24/21 for chronic diarrhea & elevated fecal calprotectin: Mild gastritis No identified small bowel Crohn's Disease Accompanied by mother. Pt has not been able to schedule PFPT d/t recent illness. [facility] told pt had IBS. Not needing linzess. Diarrhea has resolved. Having daily BM formed. No hard stools/runny stools. Has had abx d/t recent illness, improved aftertx. Still using prn miralax about 2 x week, if stool gets lumpy. Feels like is evacuating stool better. Takes oral iron so dark, not tarry, prescribed by PCP. No melena or hematochezia + No prior VD, no Hyst. + Bladder leakage with urgency. GERD overall well controlled, occasionally needs prn dose (notes was advised by Rheum Methotrexate with PPI contributed to elevated liver enzyme) Feels best off gluten, tries to avoid. No dysphagia or odynophagia. Last week had one episode of Vomiting after taking OJ and meds during car trip, then a couple days later at night- again on car trip. No NV with meals. No frequent NV (reports 2 isolated episodes) Appetite is good. Reports taking Reglan daily in am for dx of ADD- reports is prescribed by Psychiatrist, has taken for yrs. Notes seeing neurology for memory issues. GI hx: brother has colon polyps, brother also recently dx pancreatic cancer 60y/o. Mom with hx of colon polyps- about 3 on last cscope Review of Systems Constitutional: Negative for unexpected weight change. HENT: Negative for trouble swallowing. Gastrointestinal: Positive for vomiting (x 2; spontaneous when in car). Negative for abdominal pain, blood in stool, constipation, diarrhea and nausea. Objective Physical Exam General: appears comfortable, NAD Head: AT, NC Eyes: no scleral icterus Pulmonary: nonlabored respirations, CTAB Cardiovascular: RRR, no M/R/G Abdomen: Soft, obese, NT, ND, Active bowel sounds MSK: Using cane to ambulate Skin: no jaundice Neurologic: speech is clear, responds appropriately to commands Psychiatric: Calm, cooperative Visit Vitals BP 132/80 Pulse 67 Temp 36.5 ??C (97.7 ??F) (Oral) Ht 1.702 m (5' 7 ) Wt 143 kg (315 lb 4.1 oz) SpO2 97% BMI 49.38 kg/m?? Assessment/Plan Assessment & Plan Gastroesophageal reflux disease, unspecified whether esophagitis present Orders: pantoprazole (Protonix) 40 MG EC tablet; Take 1 tablet by mouth daily before breakfast. Do not crush, chew, or split. Comprehensive metabolic panel; Future CBC and differential; Future Follow Up GI; Future EGD; Future Chronic constipation Orders: Comprehensive metabolic panel; Future CBC and differential; Future Follow Up GI; Future History of cirrhosis Orders: Comprehensive metabolic panel; Future CBC and differential; Future Protime-INR; Future Alpha Fetoprotein, Serum; Future EGD; Future Bilious vomiting with nausea Orders: EGD; Future Ssx pelvic floor dysfunction Last OV discussed squatty vibhaty Referral to PFPT last OV, doing better, deferred Not needing linzess 145mcg 30 ac in am Using prn miralax . Constipation and diarrhea resolved ( ? Had some element of SIBO, had abx in May) Had cscope 05/31/21: adequate prep The terminal ileum appeared normal. Performed random biopsy. The entire colon appeared normal. Performed random biopsy. Few small diverticula in the sigmoid colon Rec repeat in 5y if medically appropriate d/t brother and mother with hx of colon polyps (details NA) [facility] Rec taking pantoprazole daily given hx of GERD and couple vomiting spell in Car after meds and OJ, hx of GERD. Denies frequent NV or dyspepsia. Yusef Aragon, will add on INR and AFP given has upcoming follow up next month for monitoring of cirrhosis Will check CMP/CBC RTC 6 months per in person Friday clinic for constipaiton addendum: pt contacted office today had another episode of spontaneous vomiting. Will order EGD documented in this encounter Plan of Treatment Upcoming Encounters Date Type Department Care Team (Late st Contact Info) Description 11/04/2024 3:40 PM EDT Office Visit [facility] Specialties [address] [place] [address] Rebekah Aragon PA [address] [place] [address] 12/29/2024 1:30 PM EDT Office Visit [facility] Specialties [address] [place] [address] Jesus Tanner MD [address] [place] [address] 02/28/2025 10:00 AM EST Office Visit [facility] [address] [place] [address] Saul Encinas PA [address] [facility] [address] [place] [id number] 07/12/2025 11:00 AM EDT Ovarian Cancer Screening [facility] Gynecology [address] [facility]rd [place] [address] Scheduled Referrals Name Type Priority Associated Diagnoses Orde r Schedule Follow Up GI Outpatient Referral Routine Gastroesophageal reflux disease, unspecified whether esophagitis present Chronic constipation Expected: 02/22/2025, Expires: 09/22/2025 documented as of this encounter Goals Goal Patient Goal Type Associated Problems Recent Progress Patient-Stated? Author Autogenerat ed Goal Care Plan Autogenerated Problem No Dana Ng documented as of this encounter Results * EGD (10/14/2024 1:00 PM EDT) Anatomical Region Laterality Modality Endoscopy Narrative 10/14/2024 12:59 PM EDT Table formatting from the original result was not included. Impression: The upper third of the esophagus, middle third of the esophagus and lower third of the esophagus appeared normal. Severe mosaic mucosa in the cardia, fundus of the stomach, body of the stomach, greater curve of the stomach and lesser curve of the stomach Moderate erythematous mucosa in the antrum, prepyloric region and pylorus, suggestive of gastritis; performed cold forceps biopsy to rule out H. pylori The 1st part of the duodenum and 2nd part of the duodenum appeared normal. Recommendations Await pathology results - Return home once discharge criteria met. - May resume previous diet. - Continue pantoprazole daily - Return to referring provider. - Discussed results with patient/family. Indication History of cirrhosis, Bilious vomiting with nausea, Gastroesophageal reflux disease, unspecified whether esophagitis present Medications See anesthesia record for anesthesia administered medications. Staff Staff Role Alverto Barney MD Anesthesiologist Constance Infante Endo Nurse Ari Barfield MD Proceduralist Reji Dewey Endo Appliquer Israel Murrell CRNA COMPUTER TEACHER Preprocedure A history and physical has been performed, and patient medication allergies have been reviewed. The patient's tolerance of previous anesthesia has been reviewed. The risks and benefits of the procedure and the sedation options and risks were discussed with the patient. All questions were answered and informed consent obtained. Details of the Procedure The patient underwent monitored anesthesia care, which was administered by an anesthesia professional. The patient's blood pressure, heart rate, level of consciousness, oxygen saturation and respirations were monitored throughout the procedure. The scope was introduced through the mouth and advanced to the second part of the duodenum. Retroflexion was performed in the cardia. The patient experienced no blood loss. The procedure was not difficult. The patient tolerated the procedure well. There were no apparent adverse events. Attestation I personally performed the entire procedure Specimens ID Type Source Tests Collected by Time A : biopsy Tissue Stomach SURGICAL PATHOLOGY EXAM Ari Barfield MD 10/14/2024 1253 Findings The upper third of the esophagus, middle third of the esophagus and lower third of the esophagus appeared normal. Severe, generalized mosaic mucosa in the cardia, fundus of the stomach, body of the stomach, greater curve of the stomach and lesser curve of the stomach; no bleeding was observed. Suggestive of PHG seen Moderate, generalized erythematous mucosa in the antrum, prepyloric region and pylorus, suggestive of gastritis; performed cold forceps biopsy to rule out H. pylori The 1st part of the duodenum and 2nd part of the duodenum appeared normal. Saul TTOH GI PROCEDURE ORDERABLES Final R esult * (ABNORMAL) Alpha Fetoprotein, Serum (08/23/2024 10:38 AM EDT) Alpha Fetoprotein, Serum 10.5(H) <10.0 ng/mL 08/23/2024 11:54 AM EDT [facility] Blood Venous blood specimen / Unknown Venipuncture / Unknown 08/23/2024 10:38 AM EDT 08/23/2024 10:39 AM EDT Narrative [facility] - 08/23/2024 11:54 AM EDT Performed by Brandi electrochemiluminescent immunoassay which is traceable to the [address] [place] [address] WHO Reference standard 72/255. Results obtained with different test methods or kits cannot be used interchangeably. Saul TOTH LAB BLOOD ORDERABLES Final Resu lt [facility] [address] [place] [address] * (ABNORMAL) Protime-INR (08/23/2024 10:38 AM EDT) Prothrombin Time 17.7(H) 12.0 - 14.3 sec LAB COAGULATION METHOD 08/23/2024 1:05 PM EDT [facility] INR 1.4(H) 0.9 - 1.1 LAB COAGULATION METHOD 08/23/2024 1:05 PM EDT [facility] Blood Venous blood specimen / Unknown Venipuncture / Unknown 08/23/2024 10:38 AM EDT 08/23/2024 10:39 AM EDT Narrative [facility] - 08/23/2024 1:05 PM EDT OPTIMAL INR RANGES FOR PATIENT ON ORAL ANTICOAGULANT THERAPY Prevention of venous thromboembolism INR 2.0 to 3.0 In patients with heart disease: Atrial fibrillation INR 2.0 to 3.0 Valvular heart disease INR 2.0 to 3.0 Tissue heart valves INR 2.0 to 3.0 Mechanical prosthetic valves INR 2.5 to 3.5 Prevention of recurrent TN INR 2.5 to 3.5 us Saul TOTH LAB BLOOD ORDERABLES Final Resu lt [facility] [address] [place] [address] * (ABNORMAL) CBC and differential (08/23/2024 10:38 AM EDT) WBC Count 6.90 3.70 - 10.30 10*3/uL LAB HEMATOLOGY METHOD 08/23/2024 11:44 AM EDT [facility] RBC Count 3.25(L) 3.90 - 5.20 10*6/uL LAB HEMATOLOGY METHOD 08/23/2024 11:44 AM EDT [facility] HGB 9.6(L) 11.2 - 15.7 g/dL LAB HEMATOLOGY METHOD 08/23/2024 11:44 AM EDT [facility] HCT 31.5(L) 34.0 - 45.0 % LAB HEMATOLOGY METHOD 08/23/2024 11:44 AM EDT [facility] Platelet Count 245 155 - 369 10*3/uL LAB HEMATOLOGY METHOD 08/23/2024 11:44 AM EDT [facility] MCV 97 79 - 98 fL LAB HEMATOLOGY METHOD 08/23/2024 11:44 AM EDT [facility] MCH 29.5 26.0 - 32.0 pg LAB HEMATOLOGY METHOD 08/23/2024 11:44 AM EDT [facility] MCHC 30.5(L) 30.7 - 35.5 g/dL LAB HEMATOLOGY METHOD 08/23/2024 11:44 AM EDT [facility] RDW 16.9(H) 11.5 - 14.5 % LAB HEMATOLOGY METHOD 08/23/2024 11:44 AM EDT [facility] MPV 10.4 8.8 - 12.5 fL LAB HEMATOLOGY METHOD 08/23/2024 11:44 AM EDT [facility] nRBC 0.0 <=0.0 per 100 WBCs LAB HEMATOLOGY METHOD 08/23/2024 11:44 AM EDT [facility] Differential Type Automated LAB HEMATOLOGY METHOD 08/23/2024 11:44 AM EDT [facility] Neutrophils % 68 % LAB HEMATOLOGY METHOD 08/23/2024 11:44 AM EDT [facility] Lymphocytes % 20 % LAB HEMATOLOGY METHOD 08/23/2024 11:44 AM EDT [facility] Monocytes % 4 % LAB HEMATOLOGY METHOD 08/23/2024 11:44 AM EDT [facility] Eosinophils % 6 % LAB HEMATOLOGY METHOD 08/23/2024 11:44 AM EDT [facility] Basophils % 2 % LAB HEMATOLOGY METHOD 08/23/2024 11:44 AM EDT [facility] Immature Granulocytes % 0 % LAB HEMATOLOGY METHOD 08/23/2024 11:44 AM EDT [facility] Neutrophils Absolute 4.76 1.60 - 6.10 10*3/uL LAB HEMATOLOGY METHOD 08/23/2024 11:44 AM EDT [facility] Lymphocytes Absolute 1.35 1.20 - 3.90 10*3/uL LAB HEMATOLOGY METHOD 08/23/2024 11:44 AM EDT [facility] Monocytes Absolute 0.25(L) 0.30 - 0.90 10*3/uL LAB HEMATOLOGY METHOD 08/23/2024 11:44 AM EDT [facility] Eosinophils Absolute 0.41 0.00 - 0.50 10*3/uL LAB HEMATOLOGY METHOD 08/23/2024 11:44 AM EDT [facility] Basophils Absolute 0.11(H) 0.00 - 0.10 10*3/uL LAB HEMATOLOGY METHOD 08/23/2024 11:44 AM EDT [facility] Immature Granulocytes Absolute 0.02 0.00 - 0.06 10*3/uL LAB HEMATOLOGY METHOD 08/23/2024 11:44 AM EDT [facility] Blood Venous blood specimen / Unknown Venipuncture / Unknown 08/23/2024 10:38 AM EDT 08/23/2024 10:39 AM EDT [facility] - 08/23/2024 11:44 AM EDT Therapeutic decision making should be based on absolute values, rather than percentages. Saul TOTH LAB BLOOD ORDERABLES Final Resu lt [facility] [address] [place] [address] * (ABNORMAL) Comprehensive metabolic panel (08/23/2024 10:38 AM EDT) Glucose, Plasma 132(H) 74 - 99 mg/dL 08/23/2024 11:51 AM EDT [facility] BUN, Plasma 13 7 - 21 mg/dL 08/23/2024 11:51 AM EDT [facility] Creatinine, Plasma 0.74 0.60 - 1.10 mg/dL 08/23/2024 11:51 AM EDT [facility] BUN/Creatinine Ratio 18 08/23/2024 11:51 AM EDT [facility] Sodium, Plasma 143 136 - 145 mmol/L 08/23/2024 11:51 AM EDT [facility] Potassium, Plasma 3.8 3.6 - 4.9 mmol/L 08/23/2024 11:51 AM EDT [facility] Chloride, Plasma 108(H) 97 - 107 mmol/L 08/23/2024 11:51 AM EDT [facility] CO2, Plasma 22 22 - 29 mmol/L 08/23/2024 11:51 AM EDT [facility] Anion Gap 13 6 - 16 mmol/L 08/23/2024 11:51 AM EDT [facility] Total Calcium, Plasma 8.8(L) 8.9 - 10.2 mg/dL 08/23/2024 11:51 AM EDT [facility] Total Protein 6.8 6.3 - 7.9 g/dL 08/23/2024 11:51 AM EDT [facility] Albumin, Plasma 3.5 3.5 - 5.2 g/dL 08/23/2024 11:51 AM EDT [facility] AST, Plasma 53(H) 10 - 35 U/L 08/23/2024 11:51 AM EDT [facility] ALT, Plasma 31 10 - 35 U/L 08/23/2024 11:51 AM EDT [facility] Alkaline Phosphatase, Plasma 222(H) 46 - 142 U/L 08/23/2024 11:51 AM EDT [facility] Total Bilirubin, Plasma 1.0 0.2 - 1.1 mg/dL 08/23/2024 11:51 AM EDT [facility] eGFRcr 93.3 mL/min/1.7 3m*2 08/23/2024 11:51 AM EDT [facility] Comment:Reported eGFRcr in m L/min/1.73m2 is based the CKD-EPI 2020 equation that does not use a race coefficient. Blood Venous blood specimen / Unknown Venipuncture / Unknown 08/23/2024 10:38 AM EDT 08/23/2024 10:39 AM EDT Saul TOTH LAB BLOOD ORDERABLES Final Resu lt [facility] [address] [place] [address] documented in this encounter Visit Diagnoses Diagnosis Gastroesophageal reflux disease, unspecified whether esophagitis present- Primary Chronic constipation Unspecified constipation History of cirrhosis Personal history of other diseases of digestive disease Bilious vomiting with nausea Gastroesophageal reflux disease, unspecified whether esophagitis present History of cirrhosis Personal history of other diseases of digestive disease Bilious vomiting with nausea documented in this encounter Additional Health Concerns Active Problems Noted Date Diagnosed Date Autogenerated Problem 08/24/2024 Assessment Noted Time PHQ-9 Depression Total Score: 0 08/24/19 25 9:43 AM EDT A fall risk assessment has been complete d for the patient 08/23/2024 9:43 AM EDT A Body Mass Index follow-up plan has been documented for the patient 08/23/2024 10:52 AM EDT documented as of this encounter Care Teams Property Master Relationship Specialty Start Date End Date Dru Giles MD PCP - General 11/21/21 documented as of this encounter
--- OUTSIDE RECORDS SUMMARY | 2024-09-20 13:30 | XMS_ITS | Encounter Summary ---
Author Organization [facility] Address [address] [id number] Care Team Providers Care Driver'S License Examiner Name Role Phone Dru Giles MD Primary Care Provider [phone] Reason for Visit * Reason Comments Seronegative rheumatoid arthritis of [facility] Follow-up Encounter Details Date Type Department Care Team (Late st Contact Info) Description 09/20/2024 1:30 PM EDT [facility] Visit [facility] [address], [address] [place] [address] Jesus Tanner MD [address] [place] [address] Inflammatory polyarthritis (CMS/HCC); High risk [...] Author 0 09/20/2024 1:07 PM EDT Yara Covarrubias * Question Answer Date of Assessment [...] than half the days 09/20/2024 1:12 PM EDT Yara Covarrubias Patient Health Questionnaire-2 Score 4 [...] injectable, preservative free 12/18/2023 Moderna COVID-19 Vaccine (Debt Management Counselor) 12+ years 05/10/2020, 06/07/2020, 01/03/2021 Moderna COVID-19 [...] mg, Nightly Multiple Vitamins-Minerals (EQ One Daily [employer]) tablet 1 tablet, Daily ondansetron (ZOFRAN) [...] Plasma 08/23/2024 187 (L) Total Iron Binding [place]* 08/23/2024 234 (L) Transferrin Saturation 08/23/2024 18 [...] Parts of this note were dictated using [employer] voice recognition software. As a result, errors may occur. When identified, these image assembler errors are corrected, but while every attempt [...] and other consulting physicians. Jesus Tanner MD Talk Show Host Division of Rheumatology Department of Internal Medicine [facility] Electronically Signed by: Jesus Tanner MD - [...] injectable, preservative free 12/18/2023 Moderna COVID-19 Vaccine (Debt Management Counselor) 12+ years 05/10/2020, 06/07/2020, 01/03/2021 Moderna COVID-19 [...] mg, Nightly Multiple Vitamins-Minerals (EQ One Daily [employer]) tablet 1 tablet, Daily ondansetron (ZOFRAN) [...] Plasma 08/23/2024 187 (L) Total Iron Binding [place]* 08/23/2024 234 (L) Transferrin Saturation 08/23/2024 18 [...] Parts of this note were dictated using [employer] voice recognition software. As a result, errors may occur. When identified, these image assembler errors are corrected, but while every attempt [...] and other consulting physicians. Jesus Tanner MD Talk Show Host Division of Rheumatology Department of Internal Medicine [facility] Electronically Signed by: Jesus Tanner MD - 09/20/2024 - 2:36 PM documented in this encounter Plan of Treatment Upcoming Encounters Date Type Department Care Team (Late st Contact Info) Description 11/04/2024 3:40 PM EDT Office Visit [facility] [address] [place] [address] Rebekah Aragon PA [address] [place] [address] 12/29/2024 1:30 PM EDT Office Visit [facility] [address] [place] [address] Jesus Tanner MD [address] [place] [address] 02/28/2025 10:00 AM EST Office Visit [facility] [address] [place] [address] Melyssa Encinas PA [address] [place] [address] 07/12/2025 11:00 AM EDT Ovarian Cancer Screening [facility] [address] [place] [address] documented as of this encounter Goals Goal Patient Goal Type Associated Problems Recent Progress Patient-Stated? Author Autogenerat ed Goal Care Plan Autogenerated Problem No Dana Ng documented as of this encounter Results * C-reactive protein (09/20/2024 2:05 PM EDT) CRP, Plasma 6.7 <=8.0 mg/L 09/20/2024 3:14 PM EDT [facility] Blood Venous blood specimen / Unknown Venipuncture / Unknown 09/20/2024 2:05 PM EDT 09/20/2024 2:05 PM EDT Narrative [facility] - 09/20/2024 3:14 PM EDT This CRP test is appropriate for assessment of infection, systemic inflammation and/or tissue injury. To assess cardiovascular disease risk order high sensitivity CRP (CRPH). Jesus Tanner MD LAB BLOOD ORDERABLES Final Re sult Performing Organization Address [facility]/ZIP Co de Phone Number [facility] [address] [place] [address] * (ABNORMAL) Sedimentation Rate, Automated (09/20/2024 2:05 PM EDT) [facility] Sedimentation Rate 58(H) <30 mm/hr 2024 3:19 PM EDT [facility] Blood Venous blood specimen / Unknown Venipuncture / Unknown 09/20/2024 2:05 PM EDT 09/20/2024 2:05 PM EDT Jesus Tanner MD LAB BLOOD ORDERABLES Final Re sult [facility] [address] [place] [address] * (ABNORMAL) Comprehensive metabolic panel (09/20/2024 2:05 PM EDT) Pathologist [facility] Glucose, Plasma 117(H) 74 - 99 mg/dL 09/20/2024 3:14 PM EDT [facility] BUN, Plasma 13 7 - 21 mg/dL 09/20/2024 3:14 PM EDT [facility] Creatinine, Plasma 0.91 0.60 - 1.10 mg/dL 09/20/2024 3:14 PM EDT [facility] BUN/Creatinine Ratio 09/20/2024 3:14 PM EDT [facility] Sodium, Plasma 140 136 - 145 mmol/L 09/20/2024 3:14 PM EDT [facility] Potassium, Plasma 3.8 3.6 - 4.9 mmol/L 09/20/2024 3:14 PM EDT [facility] Chloride, Plasma 106 97 - 107 mmol/L 09/20/2024 3:14 PM EDT [facility] CO2, Plasma 22 22 - 29 mmol/L 09/20/2024 3:14 PM EDT [facility] Anion Gap 12 6 - 16 mmol/L 09/20/2024 3:14 PM EDT [facility] Total Calcium, Plasma 9.3 8.9 - 10.2 mg/dL 09/20/2024 3:14 PM EDT [facility] Total Protein 7.5 6.3 - 7.9 g/dL 09/20/2024 3:14 PM EDT [facility] Albumin, Plasma 3.7 3.5 - 5.2 g/dL 09/20/2024 3:14 PM EDT [facility] AST, Plasma 54(H) 10 - 35 U/L 09/20/2024 3:14 PM EDT [facility] ALT, Plasma 30 10 - 35 U/L 09/20/2024 3:14 PM EDT [facility] Alkaline Phosphatase, Plasma 180(H) 46 - 142 U/L 09/20/2024 3:14 PM EDT [facility] Total Bilirubin, Plasma 1.7(H) 0.2 - 1.1 mg/dL 09/20/2024 3:14 PM EDT [facility] eGFRcr 72.8 mL/min/1.7 3m*2 09/20/2024 3:14 PM EDT [facility] Comment:Reported eGFRcr in m L/min/1.73m2 is based the CKD-EPI 2020 equation that does not use a race coefficient. Blood Venous blood specimen / Unknown Venipuncture / Unknown 09/20/2024 2:05 PM EDT 09/20/2024 2:05 PM EDT us Jesus Tanner MD LAB BLOOD ORDERABLES Final Re sult [facility] [address] [place] [address] * (ABNORMAL) CBC and differential (09/20/2024 2:05 PM EDT) WBC Count 8.34 3.70 - 10.30 10*3/uL LAB HEMATOLOGY METHOD 09/20/2024 4:01 PM EDT [facility] RBC Count 3.64(L) 3.90 - 5.20 10*6/uL LAB HEMATOLOGY METHOD 09/20/2024 4:01 PM EDT [facility] HGB 11.0(L) 11.2 - 15.7 g/dL LAB HEMATOLOGY METHOD 09/20/2024 4:01 PM EDT [facility] HCT 35.9 34.0 - 45.0 % LAB HEMATOLOGY METHOD 09/20/2024 4:01 PM EDT [facility] Platelet Count 163 155 - 369 10*3/uL LAB HEMATOLOGY METHOD 09/20/2024 4:01 PM EDT [facility] MCV 99(H) 79 - 98 fL LAB HEMATOLOGY METHOD 09/20/2024 4:01 PM EDT [facility] MCH 30.2 26.0 - 32.0 pg LAB HEMATOLOGY METHOD 09/20/2024 4:01 PM EDT [facility] MCHC 30.6(L) 30.7 - 35.5 g/dL LAB HEMATOLOGY METHOD 09/20/2024 4:01 PM EDT [facility] RDW 16.0(H) 11.5 - 14.5 % LAB HEMATOLOGY METHOD 09/20/2024 4:01 PM EDT [facility] MPV 10.7 8.8 - 12.5 fL LAB HEMATOLOGY METHOD 09/20/2024 4:01 PM EDT [facility] nRBC 0.0 <=0.0 per 100 WBCs LAB HEMATOLOGY METHOD 09/20/2024 4:01 PM EDT [facility] Differential Type Automated LAB HEMATOLOGY METHOD 09/20/2024 4:01 PM EDT [facility] Neutrophils % 68 % LAB HEMATOLOGY METHOD 09/20/2024 4:01 PM EDT [facility] Lymphocytes % 25 % LAB HEMATOLOGY METHOD 09/20/2024 4:01 PM EDT [facility] Monocytes % 1 % LAB HEMATOLOGY METHOD 09/20/2024 4:01 PM EDT [facility] Eosinophils % 5 % LAB HEMATOLOGY METHOD 09/20/2024 4:01 PM EDT [facility] Basophils % 1 % LAB HEMATOLOGY METHOD 09/20/2024 4:01 PM EDT [facility] Immature Granulocytes % 0 % LAB HEMATOLOGY METHOD 09/20/2024 4:01 PM EDT [facility] Neutrophils Absolute 5.55 1.60 - 6.10 10*3/uL LAB HEMATOLOGY METHOD 09/20/2024 4:01 PM EDT [facility] Lymphocytes Absolute 2.12 1.20 - 3.90 10*3/uL LAB HEMATOLOGY METHOD 09/20/2024 4:01 PM EDT [facility] Monocytes Absolute 0.12(L) 0.30 - 0.90 10*3/uL LAB HEMATOLOGY METHOD 09/20/2024 4:01 PM EDT [facility] Eosinophils Absolute 0.44 0.00 - 0.50 10*3/uL LAB HEMATOLOGY METHOD 09/20/2024 4:01 PM EDT [facility] Basophils Absolute 0.08 0.00 - 0.10 10*3/uL LAB HEMATOLOGY METHOD 09/20/2024 4:01 PM EDT [facility] Immature Granulocytes Absolute 0.03 0.00 - 0.06 10*3/uL LAB HEMATOLOGY METHOD 09/20/2024 4:01 PM EDT [facility] Blood Venous blood specimen / Unknown Venipuncture / Unknown 09/20/2024 2:05 PM EDT 09/20/2024 2:05 PM EDT [facility] - 09/20/2024 4:01 PM EDT Therapeutic decision making should be based on absolute values, rather than percentages. us Jesus Tanner MD LAB BLOOD ORDERABLES Final Re sult [facility] [address] [place] [address] documented in this encounter Visit Diagnoses Diagnosis [...] documented as of this encounter Care Teams Driver'S License Examiner Relationship Specialty Start Date End Date Dru Giles MD PCP - General 11/21/21 documented as of this encounter
--- OUTSIDE RECORDS SUMMARY | 2024-10-07 13:20 | XMS_ITS | Encounter Summary ---
Author Organization [facility] Address [address] [place] [address] Care Team Providers Care Painting Trades Worker Name Role Phone Dru Giles MD Primary Care Provider [phone] Reason for Referral * Consultation (Routine) - Authorized Specialty Diagnoses / Procedures Referred By Contac t Referred To Contact Diagnoses Cirrhosis of liver without ascites, unspecified hepatic cirrhosis type (CMS/HCC) Rebekah Aragon PA [address] [facility] [address] [place] [address] Phone: tel: fax: Referral ID Status Reason Start Date Expiration Date V isits Requested Visits Authorized [id number] Authorized 10/07/2024 04/08/2026 1 1 Reason for Visit * Reason Comments Cirrhosis of liver without ascites, unsp ecified hepatic cir Encounter Details Date Type Department Care Team (Latest Contact Info) Description 10/07/2024 1:20 PM EDT Office Visit [facility] Medicine Specialties [address] [place] [address] Rebekah Aragon PA [address] [facility] [address] [place] [phone] Decompensated cirrhosis (CMS/HCC) (Primary Dx); Liver lesion; [...] or place. She was hospitalized overnight at [facility] and was told to have a concussion [...] (major depressive disorder), recurrent, with melancholic features ([facility]) 04/19/2024 Martin shared that there are several [...] mg, Nightly Multiple Vitamins-Minerals (EQ One Daily [employer]) tablet 1 tablet, Daily Nystop 997593 UNIT/GM powder apply topically to the affected [...] - please document in the comment field Grqf-Fbf-Wgm-Hepatitis B Recmb Other - please document in [...] Comment: SEE SCANNED REPORT Test performed at: [employer] [facility], [address] [place] [phone]. Gibson Nolasco MD,PhD., Button Riveter. HGBA1C 5.5 03/28/2022 1204 CHOL 194 03/28/2022 [...] Description 11/04/2024 3:40 PM EDT Office Visit [facility] Medicine Specialties [address] [place] [phone] Rebekah Aragon PA [address] [place] [address] 12/29/2024 1:30 PM EDT Office Visit [facility] Medicine Specialties [address] [place] [address] Jesus Tanner MD [address] [place] [address] 02/28/2025 10:00 AM EST Office Visit [facility] Medicine Specialties [address] [place] [address] Melyssa Encinas PA [address] [place] [address] 07/12/2025 11:00 AM EDT Ovarian Cancer Screening [facility] Gynecology [address] [place] [address] Scheduled Referrals Name Type Priority Associated Diagnoses [...] documented as of this encounter Care Teams Painting Trades Worker Relationship Specialty Start Date End Date Dru Giles MD PCP - General 11/21/21 documented as of this encounter
--- OUTSIDE RECORDS SUMMARY | 2024-10-14 11:56 | XMS_ITS | Encounter Summary ---
Author Organization [facility] Address [address] [id number] Care Team Providers Care Host/Hostess Name Role Phone Dru Giles MD Primary Care Provider [phone] Reason for Referral * Imaging (Routine) - Closed Specialty Diagnoses / Procedures Referred By Giana lo Referred To Contact Gastroenterology Diagnoses Gastroesophageal reflux disease, unspecified whether esophagitis present History of cirrhosis Bilious vomiting with nausea Procedures EGD Melyssa Encinas PA [address] [address] Phone: tel: fax: Referral ID Status Reason Start Date Expiration Date V isits Requested Visits Authorized [id number] Closed Specialty Services Required 08/24/2024 02/23/2026 1 1 Reason for Visit * Imaging (Routine) - Closed Specialty Diagnoses / Procedures Referred By Giana lo Referred To Contact Gastroenterology Diagnoses Gastroesophageal reflux disease, unspecified whether esophagitis present History of cirrhosis Bilious vomiting with nausea Procedures EGD Melyssa Encinas PA [address] [facility] [address] [place] [address] Phone: tel: fax: Referral ID Status Reason Start Date Expiration Date V isits Requested Visits Authorized [id number] Closed Specialty Services Required 08/24/2024 02/23/2026 1 1 Encounter Details Date Type Department Care Team (Latest Contact Info) Description 10/14/2024 11:56 AM EDT - 10/14/2024 11:59 PM EDT Hospital Encounter [facility] End[facility] [address] [place] [address] Alverto Barney MD [address] [place] [address] Ari Barfield MD [address] [place] [address] Israel Murrell CRNA [address] [place] [address] Constance Infante GS - Endoscopy Gastroesophageal reflux disease, unspecified whether esophagitis present; History of cirrhosis; Bilious vomiting with nausea Discharge Disposition: Home or Self Care Social History Tobacco Use Types Packs/Day Years [...] you have a drink containing alcohol? Never 10/14/2024 Q2: How many drinks containi ng alcohol do you have on a typical day when you are drinking? Patient does not drink Q3: How often do you have si x or more drinks on one occasion? Never 10/14/2024 PHQ-2A Answer Date Recorded Patient Health Questionnaire-2 Score 0 01/23/2023 Comments No Sex and Gender Information Value Date Recorded Sex Assigned at Not on file Legal Sex Female 8:47 PM EDT Gender Identity Not on file Sexual Orientation Not on file documented as of this encounter Last Filed Vital Signs Vital Sign Reading Time Taken Comments Blood Pressure 123/63 10/14/2024 1:20 PM EDT Pulse 77 10/14/2024 1:20 PM EDT Temperature 36.3 C (97.4 F) 10/14/2024 1:00 PM EDT Respiratory Rate 17 10/14/2024 1:20 PM EDT Oxygen Saturation 98% 10/14/2024 1:20 PM EDT Inhaled Oxygen Concentration - - Weight 134 kg (294 lb 5 oz) 10/14/2024 12:25 PM EDT Height 170.2 cm (5' 7 ) 10/14/2024 12:25 PM EDT Body Mass Index 46.1 10/14/2024 12:25 PM EDT documented in this encounter Functional Status * AUDIT-C Score Answer Date of Assessment Author 0 10/14/2024 12:26 PM EDT Jane Ortega RN * Question Answer Date of Assessment Author Q1: How often do you have a drink containing alcohol? Never 10/14/2024 12:26 PM EDT Jane Ortega RN Q2: How many drinks containing alcohol do you have on a typical day when you are drinking? Patient does not drink 10/14/2024 12:26 PM EDT Jane Ortega RN Q3: How often do you have six or more drinks on one occasion? Never 10/14/2024 12:26 PM EDT Jane Ortega RN documented as of this encounter Medications at Time of Discharge Adalimumab (Humira, 2 Pen,) 40 MG/0.4ML Auto-injector KitIndications:Ser onegative rheumatoid arthritis of multiple sites (CMS/HCC) Inject 1 each under the skin every 14 days. 0.8 each 3 09/20/2024 azelastine (Astelin) 0.1 % nasal spray 09/20/2022 Breo Ellipta 200-25 MCG/ACT aerosol powder 1 (one) time each day. 01/27/2022 cetirizine (ZyrTEC) 10 MG tablet 02/05/2023 EPINEPHrine (AUVI-Q) 0.15 mg/0.15 mL IJ solution auto-injector injection Inject 0.0225 mL (0.0225 mg) into the muscle if needed for anaphylaxis. ergocalciferol 1.25 MG (85063 UT) capsule Take 1 capsule by mouth 1 time per week. 10/01/2020 ferrous sulfate 325 (65 Fe) MG EC tabletIndications: Anemia, unspecified type TAKE 1 TABLET BY MOUTH 1 (ONE) TIME EACH DAY WITH BREAKFAST. DO NOT CRUSH, CHEW, OR SPLIT. 90 tablet 2 08/20/2021 fluticasone (Flonase) 50 MCG/ACT nasal spray 1 spray daily. 01/27/2022 folic acid (Folvite) 1 MG tabletIndications: Inflammatory polyarthritis (CMS/HCC),High risk medication use Take 1 tablet by mouth daily. As long as you are on methotrexate 90 tablet 1 09/20/2024 09/21/19 26 Glucagon, rDNA, (Glucagon Emergency) 1 MG kit 01/09/2023 Horizant 600 MG tablet controlled-release ER tablet 04/02/2023 ketotifen (Zaditor) 0.035 % ophthalmic solution 02/18/2023 lactulose (Chronulac) 10 GM/15ML oral solution Take 15 mL by mouth 3 times a day. Can increase or decrease volume or frequency of dosing to have 1 BM daily or every other day 1350 mL 2 10/07/2024 01/06/20 25 levocetirizine (Xyzal) 5 MG tablet 11/18/2023 linaCLOtide (Linzess) 145 MCG capsuleIndications :Chronic constipation Take 1 capsule (145 mcg) by mouth 1 (one) time each day before breakfast. 30 capsule 3 01/26/2024 meclizine (Antivert) 25 MG tablet 1 tablet. 12/06/2022 methotrexate 2.5 MG tabletIndications: Inflammatory polyarthritis (CMS/HCC) Take 4 tablets (10 mg total) by mouth 1 time per week. Follow directions carefully, and ask to explain any part you do not understand. Take exactly as directed. 68 tablet 09/20/2024 01/19/20 25 metoclopramide (Reglan) 5 MG tablet Take 1 tablet (5 mg) by mouth 1 (one) time each day in the morning. 09/11/2020 montelukast (Singulair) 10 MG tablet Take 1 tablet by mouth nightly. 09/11/2020 Multiple Vitamins-Minerals (EQ One Daily Instant API) tablet Take 1 tablet by mouth daily. Nystop 410861 UNIT/GM powder apply topically to the affected area(s) three times daily 10/01/2024 ondansetron (Zofran) 4 MG tablet 1 tablet (4 mg). 04/03/2023 pantoprazole (Protonix) 40 MG EC tabletIndications: Gastroesophageal reflux disease, unspecified whether esophagitis present Take 1 tablet by mouth daily before breakfast. Do not crush, chew, or split. 90 tablet 3 08/23/2024 ProAir HFA 108 (90 Base) MCG/ACT inhaler if needed. 09/26/2021 rifAXIMin (Xifaxan) 550 MG tabletIndications: Decompensated cirrhosis (CMS/HCC) Take 1 tablet by mouth 2 times a day. 60 tablet 11 10/07/2024 10/08/19 26 traMADol (Ultram) 50 MG tablet at night if needed. 08/27/2021 triamcinolone (Kenalog) 0.1 % cream apply a SMALL AMOUNT topically TO THE affected area(s) TWICE DAILY FOR ITCHING OR RASH avoid USE ON face, groin, OR arm pits 08/05/2024 valsartan (Diovan) 320 MG tablet Take 1 tablet by mouth every morning. Down to 160 09/08/2020 Zegalogue 0.6 MG/0.6ML solution auto-injector USE DIRECTED NEEDED with epipen FOR anaphylactic reactions 06/07/2024 documented as of this encounter Miscellaneous Notes * H&P - Ari Barfield MD - 10/14/2024 1:00 PM EDT Images from the original note were not included. Subjective Chief complaint EGD History Of Present Illness Marizol Bishop is a 59 y.o. female with decompensated cirrhosis here for EGD for evaluation of GERD and vomiting. Not on blood thinners. Medical/Surgical/Social/Family History I have reviewed and updated the patient history. Travel History Relevant International Travel History: Travel Screening Question Response Have you been in contact with someone who was sick? No / Unsure Do you have any of the following new or worsening symptoms? None of these Have you traveled internationally or domestically in the last month? Yes Travel History Travel since 09/13/24 Location Start Date End Date [place] ([facility]) 09/13/24 09/19/24 Allergies Bee venom, Compleat, Morphine, Other, Penicillin g, Shellfish-derived products, Sulfacetamide, Wheat, Yeast, Pork allergy, Shellfish allergy, Trimethoprim, Diphth-acell pertussis-tetanus, Dtap-hepatitis b recomb-ipv, Fppi-khl-vpw-hepatitis b recmb, Penicillin v potassium, Penicillins, Sulfa drugs, Sulfamethoxazole, Tetanus antitoxin, Tetanus toxoid, Tetanus-diphtheria toxoids td, and Wheat Medications Current Medications[1] Objective Review of Systems All 14 point ROS are reviewed and are negative except for those mentioned above. Physical Exam Last Recorded Vitals Blood pressure (!) 169/64, pulse 65, temperature 36.4 ??C (97.5 ??F), temperature source Temporal, resp. rate 21, height 1.702 m (5' 7 ), weight 134 kg (294 lb 5 oz), SpO2 98%, not currently . General: Age appropriate female lying in bed not in distress HEENT: AT/NC, ANAND, EOMI. No scleral icterus present. Neck: Supple. Oral Mucosa: Moist CVS: S1S2+ RRR Lungs: symmetrical chest rise seen Abdomen: Soft, NTD, BS+, No palpable organomegaly appreciated Extremities: No edema. No Asterixis. Neuro: AA oriented x 3. No gross neuro deficits appreciated. Skin: No Jaundice Results Review I have reviewed the latest lab and imaging results. Assessment & Plan Gastroesophageal reflux disease, unspecified whether esophagitis present History of cirrhosis Bilious vomiting with nausea Marizol Bishop is a 59 y.o. female with decompensated cirrhosis here for EGD for evaluation of GERD and vomiting. Will proceed with EGD today [1] Current Outpatient Medications Medication Sig Dispense Refill Adalimumab (Humira, 2 Pen,) 40 MG/0.4ML Auto-injector Kit Inject 1 each under the skin every 14 days. 0.8 each 3 azelastine (Astelin) 0.1 % nasal spray Breo Ellipta 200-25 MCG/ACT aerosol powder 1 (one) time each day. cetirizine (ZyrTEC) 10 MG tablet EPINEPHrine (AUVI-Q) 0.15 mg/0.15 mL IJ solution auto-injector injection Inject 0.0225 mL (0.0225 mg) into the muscle if needed for anaphylaxis. ergocalciferol 1.25 MG (23463 UT) capsule Take 1 capsule (50,000 Units) by mouth 1 (one) time per week. ferrous sulfate 325 (65 Fe) MG EC tablet TAKE 1 TABLET BY MOUTH 1 (ONE) TIME EACH DAY WITH BREAKFAST. DO NOT CRUSH, CHEW, OR SPLIT. 90 tablet 2 fluticasone (Flonase) 50 MCG/ACT nasal spray 1 spray 1 (one) time each day. folic acid (Folvite) 1 MG tablet Take 1 tablet by mouth daily. As long as you are on methotrexate 90 tablet 1 Glucagon, rDNA, (Glucagon Emergency) 1 MG kit Horizant 600 MG tablet controlled-release ER tablet ketotifen (Zaditor) 0.035 % ophthalmic solution lactulose (Chronulac) 10 GM/15ML oral solution Take 15 mL by mouth 3 times a day. Can increase or decrease volume or frequency of dosing to have 1 BM daily or every other day 1350 mL 2 levocetirizine (Xyzal) 5 MG tablet (Patient not taking: Reported on 10/07/2024) linaCLOtide (Linzess) 145 MCG capsule Take 1 capsule (145 mcg) by mouth 1 (one) time each day before breakfast. (Patient not taking: Reported on 10/07/2024) 30 capsule 3 meclizine (Antivert) 25 MG tablet 1 tablet (25 mg). methotrexate 2.5 MG tablet Take 4 tablets (10 mg total) by mouth 1 time per week. Follow directionscarefully, and ask to explain any part you do not understand. Take exactly as directed. (Patient not taking: Reported on 10/07/2024) 68 tablet 0 metoclopramide (Reglan) 5 MG tablet Take 1 tablet (5 mg) by mouth 1 (one) time each day in the morning. montelukast (Singulair) 10 MG tablet Take 1 tablet (10 mg) by mouth every night. Multiple Vitamins-Minerals (EQ One Daily Instant API) tablet Take 1 tablet by mouth 1 (one) time each day. (Patient not taking: Reported on 10/07/2024) Nystop 111844 UNIT/GM powder apply topically to the affected area(s) three times daily ondansetron (Zofran) 4 MG tablet 1 tablet (4 mg). pantoprazole (Protonix) 40 MG EC tablet Take 1 tablet by mouth daily before breakfast. Do not crush, chew, or split. 90 tablet 3 ProAir HFA 108 (90 Base) MCG/ACT inhaler if needed. rifAXIMin (Xifaxan) 550 MG tablet Take 1 tablet by mouth 2 times a day. 60 tablet 11 traMADol (Ultram) 50 MG tablet at night if needed. triamcinolone (Kenalog) 0.1 % cream apply a SMALL AMOUNT topically TO THE affected area(s) TWICE DAILY FOR ITCHING OR RASH avoid USE ON face, groin, OR arm pits valsartan (Diovan) 320 MG tablet Take 1 tablet by mouth every morning. Down to 160 Zegalogue 0.6 MG/0.6ML solution auto-injector USE DIRECTED NEEDED with epipen FOR anaphylactic reactions No current facility-administered medications for this encounter. * Jane Chavez RN - 10/14/2024 12:15 PM EDT Images from the original note were not included. [id number] Recovery After Procedural Sedation (Adult) You have been given medicine by vein to make you sleep during your procedure. This may have included both a pain medicine and sleeping medicine. You may have side effects, such as nausea, fatigue, orunsteadiness for up to 24 hours. You may also feel lightheaded. Some medical conditions, such as seizure disorders, spinal cord injuries, and some metabolic conditions, may change what your care needs are. If you have a medical condition, talk with your doctor about whether your care after the procedure might change. Home care Follow these guidelines when you get home: ? For the next 8 or more hours, ask a trusted adult to watch over you. This person should make sureyour condition is not getting worse, watch for problems, and keep you safe. ? Don't drink any alcohol for the next 24 hours. ? Don't drive, operate dangerous machinery, or make important business or personal decisions duringthe next 24 hours. ? Take extra care when walking and moving, You may be at a higher risk of falling. ? Follow any instructions you were given for eating and drinking. ? Be sure to follow all after-care directions. Note: Your doctor may tell you not to take any medicine by mouth for pain or sleep in the next 4 hours. These medicines may react with the medicines you were given in the hospital. This could cause amuch stronger response than usual. Follow-up care Follow up with your doctor as advised. When to contact your doctor Have someone contact your doctor or seek medical care right away if: ? Your drowsiness gets worse. ? Your weakness or dizziness gets worse. ? You have repeated vomiting. ? Your speech is slurred, and others can't understand you. ? You have severe or ongoing pain from the procedure that's not eased by the pain medicine (if prescribed). ? You have a fever. ? You have a new rash. Call 911 Have someone call 911 if: ? You have trouble breathing. ? You have trouble swallowing. ? You have chest pain. ? You lose consciousness or you can't be awakened. Last Reviewed Date: 2023 00:00:00 ?? [id number] [employer]. All rights reserved. This information is not intended as a substitute for professional medical care. Always follow your healthcare professional's instructions. * [place] - Jane Ortega RN - 10/14/2024 12:15 PM EDT Images from the original note were not included. [id number] Endoscopy Unit: Caring for Yourself after an Esophogastroduodenoscopy (EGD) What precautions do I need to take after my procedure? You will get a medicine that makes you sleep during treatment. It may affect you for the next 24 hours. ? Do not drive or go home alone. Someone must be with you until you get home. ? For 24 hours, do not make legal decisions, drive, or use dangerous equipment. ? You may continue taking your home medicines, unless your doctor tells you otherwise. When can I eat or drink? You may eat your normal diet, unless otherwise told by your doctor. Start with a small amount of bland foods and add other foods as tolerated. Spicy or greasy foods may cause nausea. How active can I be? You should move around as you are able. Do your normal activities if you feel you can. Sexual activity is fine, unless your doctor tells you otherwise. How do I find out my biopsy results? If you had a biopsy, it may take 7-10 days for results. These will be available in the patient portal, [employer]. Or you can call the doctor who ordered your procedure. When should I call the doctor? Call 911 right away or go to the nearest emergency department if you have any of these: ? Difficulty breathing ? Severe pain in the throat ? Severe pain in the chest or belly ? Vomiting that does not go away ? Fever of 101??F or higher ? Redness or tenderness of the IV site that lasts longer than 48 hours ? Any other symptoms that concern you These may be related to a complication and need medical attention. If you do not tell your doctor, the problem may get worse. Our contact information: For the Endoscopy Provider, call and ask for the Endoscopy Fellow on-call. documented in this encounter Plan of Treatment Upcoming Encounters Date Type Department Care Team (Late st Contact Info) Description 11/04/2024 3:40 PM EDT Office Visit [facility] Medicine Specialties [address] [place] [address] Rebekah Aragon PA [address] [place] [address] 12/29/2024 1:30 PM EDT Office Visit [facility] [address] [place] [address] Jesus Tanner MD [address] [place] [address] 02/28/2025 10:00 AM EST Office Visit [facility] Medicine [facility]ties [address] [place] [address] Melyssa Encinas PA [address] [place] [address] 07/12/2025 11:00 AM EDT Ovarian Cancer Screening [facility] [address] [place] [address] documented as of this encounter Goals Goal Patient Goal Type Associated Problems Recent Progress Patient-Stated? Author Autogenerat ed Goal Care Plan Autogenerated Problem No Dana Ng documented as of this encounter Procedures Procedure Name Priority Date/Time Associated Diagnosis Comments EGD Routine 10/14/2024 1:00 PM EDT Gastroesophageal reflux disease, unspecified whether esophagitis present History of cirrhosis Bilious vomiting with nausea SURGICAL PATHOLOGY EXAM Routine 10/14/2024 12:53 PM EDT Gastroesophageal reflux disease, unspecified whether esophagitis present History of cirrhosis Bilious vomiting with nausea documented in this encounter Results * EGD (10/14/2024 1:00 [...] Ari Barfield MD Proceduralist Reji Dewey Endo Binder Cutter Israel Murrell CRNA TEST DEVELOPMENT ENGINEER Preprocedure A history and physical has been [...] 2nd part of the duodenum appeared normal. Melyssa TOTH GI PROCEDURE ORDERABLES Final R esult * Surgical Pathology Exam (10/14/2024 12:53 PM EDT) Case Report Surgical Pathology Case: [id number] Authorizing Provider: Ari Barfield, Collected: 10/14/2024 1253 MD Ordering Location: [facility] S Endoscopy Received: 10/14/2024 1416 Pathologist: Bubba Bryan MD Specimen: Stomach, biopsy 10/15/2024 4:29 PM EDT [facility] Final Diagnosis STOMACH, BIOPSY: - REACTIVE GASTROPATHIC CHANGES - NO EVIDENCE OF HELICOBACTER-LIKE ORGANISMS ON ROUTINE STAIN 10/15/2024 4:[address] [facility] at 1629 EDT Clinical Information K21.9 - Gastroesophageal reflux disease, unspecified whether esophagitis present [ICD-10-CM] Z87.19 - History of cirrhosis [ICD-10-CM] R11.14 - Bilious vomiting with nausea [ICD-10-CM] Impression: The upper third of the esophagus, [...] 2nd part of the duodenum appeared normal. 10/15/2024 4:29 PM EDT [facility] Gross Description A. BIOPSY Received in formalin labeled b iopsy, stomach , are 2 pink-white soft fragments of tissue measuring from 0.3 cm to 0.6 cm in greatest dimension. Entirely submitted in cassette A1. Cold Time: 1m Lakisha Dubois 10/15/2024 4:29 PM EDT [facility] Note: A resident was involved in the service. I attest I examined the relevant preparations for the specimens and confirmed the diagnosis or interpretation. 10/15/2024 4:29 PM EDT [facility] Tissue Stomach structure / Unknown 10/14/2024 12:53 PM EDT 10/14/2024 2:16 PM EDT Ari Barfield MD LAB PATHOLOGY ORDERABL ES Final Result [facility] [address] [place] [address] documented in this encounter Visit Diagnoses Diagnosis Gastroesophageal reflux disease, unspecified whether esophagitis present History of cirrhosis Personal history of other diseases of digestive disease Bilious vomiting with nausea documented in this encounter Administered Medications Inactive Administered Medications - up to 3 most recent administrations Medication Order MAR Action Action Date Dose Rate Site lactated Ringer's infusion 100 mL/hr, Intravenous, Once, 1 dose, On Hillary 10/14/24 at 1330, Routine New Bag 10/14/2024 12:38 PM EDT 100 mL/hr 100 mL/hr documented in this encounter Additional Health Concerns [...] documented as of this encounter Care Teams Host/Hostess Relationship Specialty Start Date End Date Dru Giles MD PCP - General 11/21/21 documented as of this encounter
--- OUTSIDE RECORDS SUMMARY | 2024-10-14 12:41 | XMS_ITS | Encounter Summary ---
Author Organization [facility] Address [address] [place] [address] Care Team Providers Care Horse Buyer Name Role Phone Dru Giles MD Primary Care Provider [phone] Encounter Details Date Type Department Care Team ([facility] st Contact Info) Description 10/14/2024 12:41 PM EDT Anesthesia Event [facility] [address] [place] [address] Alverto Barney MD [address] [place] [address] Anesthesia Record Procedure Summary Procedure Name Responsible Anesthesiologist Anesthesia Start Time Anesthesia Stop Time EGD Alverto Barney MD 10/14/24 1241 1304 Events Date Time Event Comment 10/14/2024 1238 1241 An Start The patient was reevaluated immediately before sedation and remains eligible for anesthesia plan. 1241 An Start Data 1241 In Room 1246 An Induction The patient was reevaluated immediately before moderate or deep sedation use and before anesthesia induction. 1247 Anesthesia Ready 1248 Proc Start 1258 Proc Fin 1300 an stop data 1300 Out of Room 1304 Handoff to Receiving I compl eted my handoff to the receiving clinician during which we: 1. Identified the patient 2. Identified the responsible provider 3. Reviewed the pertinent medical history 4. Discussed the surgical course 5. Reviewed intra-op anesthesia management and issues during anesthesia 6. Set expectations for post-procedure period 7. Allowed opportunity for questions and acknowledgement of understanding. 1304 An Stop Meds Name Total lidocaine PF (Xylocaine-MPF) 2% 60 mg propofol (Diprivan) injection 10 mg/mL 1 00 mg propofol (Diprivan) infusion 10 mg/mL 34 1.7 mg lactated Ringer's infusion 0 mL * Agents Name O2 * Blood No blood administrations on file. Lines, Drains, and Airways Type Details Placement Removal Peripheral IV Placement Date: 10/01; Placement Time: 1238; Catheter Size: 22 G; Orientation: Posterior, Right; Location: Hand; Site Prep: Alcohol; Technique: Anatomical landmarks; Inserted by: Leighann KEARNS; Insertion Attempts: 1; Patient Tolerance: Tolerated well; Removal Date: 10/16/24; Removal Time: 00410/14/24 1238 by Jane Ortega RN 10/16/24 0042 by Discharge Provider, Automatic documented in this encounter Social History Tobacco Use Types Packs/Day Years [...] not drink 10/14/2024 12:26 PM EDT Jane Ortega, RN Q3: How often do you have six or more drinks on one occasion? Never 10/14/2024 12:26 PM EDT aJne Ortega, RN documented as of this encounter Miscellaneous Notes * Anesthesia Postprocedure Evaluation - Israel Murrell CRNA - 10/14/2024 1:04 PM EDT Patient: Marizol Bishop Anesthesia Type: general Vitals Value Taken Time BP 89/48 10/14/24 13:01 Temp 98.3 10/14/24 13:04 Pulse 86 10/14/24 13:03 Resp 20 10/14/24 13:03 SpO2 94 % 10/14/24 13:03 Vitals shown include unfiled device data. Anesthesia Post Evaluation Patient location during evaluation: PACU Patient participation: complete - patient cannot participate (drowsy but arousable) Level of consciousness: sedated Pain management: adequate (pain score 0-3) Airway patency: natural airway Cardiovascular status: acceptable and hypotensive (IVF bolus started in PACU, nurse instructed to notify anesthesia if hyportension persists) Respiratory status: acceptable, blow-by oxygen, nonlabored ventilation, nasal cannula, spontaneous ventilation and unassisted Hydration status: acceptable Nausea/Vomiting: No No notable events documented. * Anesthesia Preprocedure Evaluation - Alverto Barney MD - 10/12/2024 12:20 PM EDT No anesthesia staff entered. 59 yo morbidly obese woman presents for EGD due to CARRASCO cirrhosis. PMH: HTN, anemia (hgb 11.0), mild asthma, BROWN on CPAP, controlled GERD, OA, RA on methotrexate, lupus, gout, depression. Prior GA c/b awareness under anesthesia and PONV. Of note, pt recently suffered a concussion and broken nose after a fall down stairs. Patient: Marizol Bishop HPI Marizol Bishop is a 59 y.o. female with body mass index is unknown because there is no height or weight on file. who presents with No Principal Problem: There is no principal problem currently onthe Problem List. 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 (CMS/HCC) ALLERGIES Allergies[1] NPO STATUS Past Medical History[2] AIRWAY HISTORY Airway Detailed Review Displaying the 20 most recent records Date Difficult Airway Blade Size ETT Size C-L Class Final Type Intubation Method 05/31/21 No MEDICATIONS Outpatient Current Outpatient Medications Medication Instructions azelastine (Astelin) [...] mg, Nightly Multiple Vitamins-Minerals (EQ One Daily [employer]) tablet 1 tablet, Daily Nystop 374067 UNIT/GM powder apply topically to the affected [...] DIRECTED NEEDED with epipen FOR anaphylactic reactions Scheduled Current Scheduled Medications[3] PRNs Current PRN Medications[4] SURGICAL HX: Surgical History[5] SOCIAL HX: Social History[6] OBJECTIVE DATA LABS Lab Results Component Value Date WBC 8.34 09/20/2024 HGB 11.0 (L) 09/20/2024 HCT 35.9 09/20/2024 MCV 99 (H) 09/20/2024 PLT 163 09/20/2024 Lab Results Component Value Date CALCIUM 9.3 09/20/2024 BUN 13 09/20/2024 CREATININE 0.91 09/20/2024 BCR 14 09/20/2024 NA 140 09/20/2024 K 3.8 09/20/2024 CL 106 09/20/2024 CO2 22 09/20/2024 Type and Screen No results found for: ABO No results found for: HGBA1C Lab Results Component Value Date GLUCOSE 117 (H) 09/20/2024 ABG No results found for: PHART , WUE2VAC , PO2ART , SO2ART , BEART , VVO4XDQ , HCTART , SODIUMART , POTASSIUMART , POCTCL , POCGLU , IONCALART , LACTATE No results found for: PH , PCO2 , PO2 , P0GOUHCA , BASEEXC , HCTSYR , KSYR , CLSYR , GLUSYR , CAION , LACTATE ECHO No echocardiogram results found for the past 12 months PFTs No results found for: RHC8HUS , VQY0IVHO , VWH3AET , FVCPRED BP Readings from Last 5 Encounters: 10/07/24 125/80 09/20/24 115/55 08/23/24 132/80 07/21/24 135/81 07/05/24 (!) 148/84 Physical Exam Airway Mallampati: III Mouth opening: normal TM distance: >3 FB Neck ROM: limited Cardiovascular Rhythm: regular Rate: normal Dental Pulmonary Breath sounds clear to auscultation Neurological Oriented: normal to time, normal to place and normal to person and oriented to person, place and time Skin Musculoskeletal Extremities Anesthesia Plan ASA 3 Plan was reviewed with: CHARGER TESTER Anesthesia technique(s) discussed with the patient/family: general and MAC Anesthesia plan agreed upon was: general Anesthetic plan and risks discussed with patient. Anesthesia Evaluation [1] Allergies Allergen Reactions Bee Venom Anaphylaxis Compleat [...] - please document in the comment field Waog-Jnm-Tiy-Hepatitis B Recmb Other - please document in [...] states they do not know rxn details [2] Past Medical History: Diagnosis Date Adjustment disorder with mixed anxiety and depressed mood 04/19/2024 Martin's health issues cause many emotions to [...] (major depressive disorder), recurrent, with melancholic features (CMS/HCC) 04/19/2024 Martin shared that there are several [...] upper respiratory tract infection 04/19/2024 Wheezing 04/19/2024 [3] [4] [5] Past Surgical History: Procedure Laterality Date ANKLE FRACTURE SURGERY 2008 ANKLE SURGERY Left ARM SURGERY Left CHOLECYSTECTOMY COLONOSCOPY COLONOSCOPY W/ BIOPSIES 05/31/2021 ESOPHAGOGASTRODUODENOSCOPY TONSILLECTOMY TYMPANOSTOMY TUBE PLACEMENT 06/24/2023 [6] Social History Tobacco Use Smoking status: Never Passive exposure: Never Smokeless tobacco: Never Vaping Use Vaping status: Never Used Substance Use Topics Alcohol use: Not Currently Drug use: Never documented in this encounter Plan of Treatment Upcoming Encounters Date Type Department Care Team (Late st Contact Info) Description 11/04/2024 3:40 PM EDT Office Visit [facility] Medicine Specialties [address], [address] [place] [address] Rebekah Aragon PA [address] [facility] [address] [place] [address] 12/29/2024 1:30 PM EDT Office Visit [facility] Specialties [address] [address] Jesus Tanner MD [address] [place] [address] 02/28/2025 10:00 AM EST Office Visit [facility] Medicine Specialties [address], [address] [place] [address] Melyssa Encinas PA [address] [place] [address] 07/12/2025 11:00 AM EDT Ovarian Cancer Screening [facility] [address], [address]rd [place] [address] documented as of this encounter Goals Goal Patient Goal Type Associated Problems Recent Progress Patient-Stated? Author Autogenerat ed Goal Care Plan Autogenerated Problem No Dana Ng documented as of this encounter Visit Diagnoses Not on filedocumented in this encounter Administered Medications Inactive Administered Medications - up to 3 most recent administrations Medication Order MAR Action Action Date Dose Rate Site lactated Ringer's infusion Intravenous, Continuous PRN, Starting on Hillary 10/14/24 at 1241, Until Hillary 10/14/24 at 1304, Routine New Bag 10/14/2024 12:41 PM EDT lidocaine PF (Xylocaine) 2 % injection Intravenous, As needed, Starting on Hillary 10/14/24 at 1246, Until Hillary 10/14/24 at 1304, Routine, Anesthesia Intraprocedure Given 10/14/2024 12:46 PM EDT 60 mg propofol (Diprivan) infusion 10 mg/mL Intravenous, Continuous PRN, Starting on Hillary 10/14/24 at 1246, Until Hillary 8 at 1304, Routine Rate/Dose Change 10/14/2024 12:53 PM EDT 200 mcg/kg/min 160.8 mL/hr New Bag 10/14/2024 12:46 PM EDT 250 mcg/kg/min 201 mL/h r propofol (Diprivan) injection Intravenous, As needed, Starting on Hillary 10/14/24 at 1246, Until Hillary 10/14/24 at 1304, Routine, Anesthesia Intraprocedure Given 10/14/2024 12:46 PM EDT 100 mg documented in this encounter Additional Health Concerns [...] documented as of this encounter Care Teams Horse Buyer Relationship Specialty Start Date End Date Dru Giles MD PCP - General 11/21/21 documented as of this encounter
[2024-10-20 17:23] LABS: Hematocrit 37.5 % (37.0-47.0); Hemoglobin 11.6 g/dL (12.2-16.2); Immature Granulocytes % 0.2 %; Mean Corpuscular HGB Conc 30.9 g/dL (31.8-35.4); Mean Corpuscular Hemoglobin 29.7 pg (27.0-31.2); Mean Corpuscular Volume 95.9 fl (81-99); Nucleated Red Blood Cells % 0 %; Platelet Count 84 K/mm3 (142-424); Red Blood Count 3.91 M/mm3 (4.20-5.40); Red Cell Distribution Width-SD 49.3 fL; White Blood Count 4.7 K/mm3 (4.8-10.8)
[2024-10-20 18:49] LABS: Alanine Aminotransferase 40 U/L (12-78); Albumin Level 3.6 g/dl (3.5-5.0); Albumin/Globulin Ratio 0.8 (1.1-1.8); Alkaline Phosphatase 204 U/L (38-126); Anion Gap 12.1 mEq/L (5-15); Aspartate Amino Transferase 92 U/L (14-36); Bilirubin,Total 1.3 mg/dl (0.2-1.3); Blood Urea Nitrogen 12 mg/dl (7-17); Calcium 9.4 mg/dl (8.4-10.2); Carbon Dioxide 24 mmol/L (22.0-30.0); Chloride 109 mmol/L (98-107); Creatinine,Serum 0.80 mg/dl (0.52-1.04); Estimated Glomerular Filt Rate 73 ml/min (>60); GFR (African American) 89 ML/MIN (>60); Globulin 4.4 g/dL (1.3-3.2); Glucose 99 mg/dl (74-100); Potassium 4.1 mmoL/L (3.5-5.1); Sodium 141 mmol/L (136-145); Total Protein,Serum 8.0 g/dl (6.3-8.2)
--- OUTSIDE RECORDS SUMMARY | 2024-10-22 10:01 | XMS_ITS | Encounter Summary ---
Author Organization [facility] Address [address] [place] [address] Care Team Providers Care Funeral Planning Counselor Name Role Phone Dru Giles MD Primary Care Provider [phone] Encounter Details Date Type Department Care Team (Late st Contact Info) Description 09/27/2024 Telephone [facility] [address], [address] [place] [phone] [place] [address] Social History Tobacco Use Types Packs/Day Years [...] * Telephone Encounter - Gabriella Machado - 09/27/2024 11:45 AM EDT Received call from patient Patient was calling clinic back Advised patient of nursing message regarding starting new Rx Patient verbalized understanding, no questions or concerns at this time * Telephone Encounter - Donte Bailey RN - 09/27/2024 11:39 AM EDT Returned call to patient to inform her not to start new medications at this time. Symptoms will need to completely resolve, and she will need to finish course of abx. No answer -- LVM x1. * Telephone Encounter - Yesi Melgar - 09/27/2024 10:26 AM EDT Patient called She got the RSV vaccine over the weekend - on afternoon and started vomiting that evening and developed a fever The next day, she fell She got a slight concussion and has antibiotics for the fever and also for a UTI She's wondering what she should do as far as her medications The plan was to start methotrexate and humira together She's wondering if she's okay to start the medications and if so, when to start them CB: [phone] documented in this encounter Plan of Treatment Upcoming Encounters Date Type Department Care Team (Late st Contact Info) Description 11/04/2024 3:40 PM EDT Office Visit [facility] Medicine Specialties [address], [address] [place] [address] Rebekah Aragon, JANEY [address] [place] [address] 12/29/2024 1:30 PM EDT Office Visit [facility] Medicine Specialties [address], [address] [place] [address] Jesus Tanner MD [address] [place] [address] 02/28/2025 10:00 AM EST [facility] [address], [address] [place] [address] Melyssa Encinas PA [address] [place] [address] 07/12/2025 11:00 AM EDT Ovarian Cancer Screening [facility] [address] [place] [address] documented as of this encounter [...] documented as of this encounter Care Teams Funeral Planning Counselor Relationship Specialty Start Date End Date Dru Giles MD PCP - General 11/21/21 documented as of this encounter
--- OUTSIDE RECORDS SUMMARY | 2024-10-22 10:01 | XMS_ITS | Encounter Summary ---
Author Organization [facility] Address [address] [place] [address] Care Team Providers Care Recycler Forklift Driver Truck Driver Name Role Phone Dru Giles MD Primary Care Provider Encounter Details Date Type Department Care Team (Late st Contact Info) Description 05/17/2024 Orders Only External Location [address] [place] [address] Provider, External Social History Tobacco Use Types [...] Description 11/04/2024 3:40 PM EDT Office Visit [facility] Medicine Specialties [address], [address] [place] [address] Rebekah Aragon PA [address] [place] [address] 12/29/2024 1:30 PM EDT Office Visit [facility] Medicine Specialties [address], [address] [place] [address] Jesus Tanner MD [address] [place] [address] 02/28/2025 10:00 AM EST Office Visit [facility] Medicine Specialties [address], [address] [place] [address] Melyssa Encinas PA [address] [place] [address] 07/12/2025 11:00 AM EDT Ovarian Cancer Screening [facility] Gynecology [address] [facility], [address]rd [place] [address] documented as of this encounter Procedures Procedure [...] documented as of this encounter Care Teams Recycler Forklift Driver Truck Driver Relationship Specialty Start Date End Date Dru Giles MD PCP - General 11/21/21 documented as of this encounter
--- OUTSIDE RECORDS SUMMARY | 2024-10-22 10:01 | XMS_ITS | Encounter Summary ---
Author Organization [facility] Address [address] [place] [address] Care Team Providers Care Spreader Box Operator Name Role Phone Dru Giles MD Primary Care Provider [phone] Encounter Details Date Type Department Care Team (Late st Contact Info) Description 05/06/2024 Orders Only External Location [address] [place] [address] Provider, External Social History Tobacco Use Types [...] Description 11/04/2024 3:40 PM EDT Office Visit [facility] Medicine Specialties [address], [address] [place] [address] Rebekah Aragon PA [address] [place] [address] 12/29/2024 1:30 PM EDT Office Visit [facility] Medicine Specialties [address], [address] [place] [address] Jesus Tanner MD [address] [place] [address] 02/28/2025 10:00 AM EST Office Visit [facility] Medicine Specialties [address], [address] [place] [address] Melyssa Encinas PA [address] [place] [address] 07/12/2025 11:00 AM EDT Ovarian Cancer Screening [facility] Gynecology [address] [facility], [address]rd [place] [address] documented as of this encounter Procedures Procedure [...] documented as of this encounter Care Teams Spreader Box Operator Relationship Specialty Start Date End Date Dru Giles MD PCP - General 11/21/21 documented as of this encounter
--- OUTSIDE RECORDS SUMMARY | 2024-10-22 10:01 | XMS_ITS | Encounter Summary ---
Author Organization [facility] Address [address] [place] [id number] Care Team Providers Care Barn Boss Name Role Phone Dru Giles MD Primary Care Provider [phone] Reason for Visit * Reason Onset Date Comments HCN - Patient Message 09/29/2024 Encounter Details Date Type Department Care Team (Late st Contact Info) Description 09/29/2024 Telephone [facility] [address], [address] [place] [address] Rebekah Aragon, JANEY [address] [place] [address] HCN - Patient Message Social [...] encounter Miscellaneous Notes * Telephone Encounter - Una Gibbons RN - 09/29/2024 3:53 PM EDT Relayed message to pt * Telephone Encounter - Rhoda Fields - 09/29/2024 12:07 PM EDT Clinical Concern/Question Reason for Call: Patient calling to find out if she needs to be fasting for 10/07 appointment Best contact number: [phone] (home) Optimal time of day to reach [...] Description 11/04/2024 3:40 PM EDT Office Visit [facility] Medicine Specialties [address], [address] [place] [address] Rebekah Aragon PA [address] [place] [address] 12/29/2024 1:30 PM EDT Office Visit [facility] Medicine Specialties [address], [address] [place] [address] Jesus Tanner MD [address] [place] [address] 02/28/2025 10:00 AM EST [facility] Visit [facility] [address], [address] [place] [address] Melyssa Encinas, JANEY [address] [place] [address] 07/12/2025 11:00 AM EDT Ovarian Cancer Screening [facility] [address], [address] [place] [address] documented as of this encounter Goals Goal [...] documented as of this encounter Care Teams Barn Boss Relationship Specialty Start Date End Date Dru Giles MD PCP - General 11/21/21 documented as of this encounter
--- OUTSIDE RECORDS SUMMARY | 2024-10-22 10:01 | XMS_ITS | Encounter Summary ---
Author Organization Healthcare Address [address] [place] [id number] Care Team Providers Care Health Promotion Coordinator Name Role Phone Dru Giles MD Primary Care Provider [phone] Encounter Details Date Type Department Care Team (Late st Contact Info) Description 07/02/2024 Results Follow-Up [facility] Medicine Specialties [address] [place] [address] Rebekah Aragon PA [address] [place] [address] Social History Tobacco Use Types [...] Description 11/04/2024 3:40 PM EDT Office Visit [facility] Medicine Specialties [address] [place] [address] Rebekah Aragon PA [address] [place] [address] 12/29/2024 1:30 PM EDT Office Visit [facility] Specialties [address] [place] [address] Jesus Tanner MD [address] [place] [address] 02/28/2025 10:00 AM EST Office Visit [facility] Specialties [address] [place] [address] Melyssa Encinas PA [address] [place] [id number] 07/12/2025 11:00 AM EDT Ovarian Cancer Screening [facility] [address] [facility], [address] [place] [address] documented as of this encounter Visit Diagnoses [...] documented as of this encounter Care Teams Health Promotion Coordinator Relationship Specialty Start Date End Date Dru Giles MD PCP - General 11/21/21 documented as of this encounter
--- OUTSIDE RECORDS SUMMARY | 2024-10-22 10:01 | XMS_ITS | Clinical Summary ---
Author Organization [facility] Address [address] [place] [address] Care Team Providers Care Brick Tender Name Role Phone Dru Giles MD Primary Care Provider [phone] Allergies Active Allergy Reactions Criticality Noted Date Comments Bee Venom Anaphylaxis High 04/03/2023 Compleat Other - please document in the comment field,Hives High 09/08/2023 Diphth-Acell Pertussis-Tetanus Other - please document in the comment field Low 09/08/2023 Dtap-Hepatitis B Recomb-Ipv Other - please document in the comment field Low 04/03/2023 Lrct-Gfr-Wsj-Hepatitis B Recmb Other - please document in [...] Hives High 04/03/2023 Medications ergocalciferol 1.25 MG (83911 UT) capsule Take 1 capsule by mouth 1 time per week. 10/02/19 21 Active metoclopramide (Reglan) 5 MG tablet Take 1 tablet (5 mg) by mouth 1 (one) time each day in the morning. 09/12/19 21 Active montelukast (Singulair) 10 MG tablet Take 1 tablet by mouth nightly. 09/12/19 21 Active valsartan (Diovan) 320 MG tablet Take 1 tablet by mouth every morning. Down to 160 09/09/19 21 Active Multiple Vitamins-Minerals (EQ One Daily [facility]) tablet Take 1 tablet by mouth daily. Active ferrous sulfate 325 (65 Fe) MG [...] 50 MCG/ACT nasal spray 1 spray daily. 01/28/20 22 Active EPINEPHrine (AUVI-Q) 0.15 mg/0.15 mL IJ [...] Active meclizine (Antivert) 25 MG tablet 1 tablet. 12/07/19 23 Active ondansetron (Zofran) 4 MG tablet 1 tablet (4 mg). 04/03/19 24 Active levocetirizine (Xyzal) 5 MG tablet 11/18/19 24 Active linaCLOtide (Linzess) 145 MCG capsuleIndication s:Chronic constipation Take 1 capsule (145 mcg) by mouth 1 (one) time each day before breakfast. 30 capsule 3 01/26/20 24 Active Additional Information Patient not taking.Reported on 10/14/2024 Zegalogue 0.6 MG/0.6ML solution auto-injector USE DIRECTED NEEDED with epipen FOR anaphylactic reactions 06/08/19 25 Active triamcinolone (Kenalog) 0.1 % cream apply a SMALL AMOUNT topically TO THE affected area(s) TWICE DAILY FOR ITCHING OR RASH avoid USE ON face, groin, OR arm pits 08/06/19 25 Active pantoprazole (Protonix) 40 MG EC [...] are on methotrexate 90 tablet 1 09/21/19 026 Active Adalimumab (Humira, 2 Pen,) 40 MG/0.4ML Auto-injector KitIndications:Se ronegative rheumatoid arthritis of multiple sites (CMS/HCC) Inject 1 each under the skin every 14 days. 0.8 each 3 09/21/19 Active Nystop 920632 UNIT/GM powder apply topically to the affected area(s) three times daily 10/02/19 Active lactulose (Chronulac) 10 GM/15ML oral solution Take 15 mL by mouth 3 times a day. Can increase or decrease volume or frequency of dosing to have 1 BM daily or every other day 1350 mL 2 10/08/19 Active rifAXIMin (Xifaxan) 550 MG tabletIndications :Decompensated cirrhosis (CMS/HCC) Take 1 tablet by mouth 2 times a day. 60 tablet 11 10/08/19 026 Active metoprolol tartrate (Lopressor) 50 MG tablet Take 1 tablet (50 mg) by mouth 2 (two) times a day. 09/12/19 025 Discontinu ed(Per Patient Report) simvastatin (Zocor) 20 MG tablet Take 1 tablet (20 mg) by mouth every night. 09/12/19 21 025 Discontinu ed(Per Patient Report) triamcinolone (Kenalog) 0.1 % oral paste if needed. 02/20/20 025 Discontinu ed(Per Patient Report) febuxostat (Uloric) 80 MG tabletIndications :Polyarticular gout Take 1 tablet (80 mg total) by mouth every night. 90 tablet 1 05/23/19 025 Discontinu ed(Per Patient Report) levoFLOXacin (Levaquin) 500 MG tablet 1 tablet (500 mg). 11/17/19 025 Discontinu ed(Per Patient Report) desvenlafaxine (Pristiq) 100 MG 24 hr tablet Take 1 tablet by mouth daily. 06/02/19 025 Discontinu ed(Per Patient Report) lamoTRIgine (LaMICtal) 25 MG tablet 06/15/19 25 025 Discontinu ed(Per Patient Report) mirtazapine (Remeron) 15 MG tablet take 1 and 1/2 tablet by mouth at bedtime 06/08/19 25 025 Discontinu ed(Per Patient Report) lamoTRIgine (LaMICtal) 100 MG tablet Take 1 tablet by mouth daily. 08/04/19 25 025 Discontinu ed(Per Patient Report) desvenlafaxine succinate er (Pristiq) 25 MG 24 hr tablet Take 1 tablet by mouth daily. 08/10/19 25 025 Discontinu ed(Per Patient Report) predniSONE (Deltasone) 20 MG tablet TAKE ONE TABLET BY MOUTH TWICE DAILY FOR 5 DAYS, THEN TAKE ONE TABLET ONCE DAILY FOR 5 DAYS -- FINISH ALL MEDICINE -- --TAKE WITH FOOD-- 08/18/19 025 Discontinu ed(Per Patient Report) Active Problems Problem Noted Date Diagnosed Date Liver lesion 01/13/2024 Therapeutic drug monitoring 01/23/2023 Seronegative rheumatoid arthritis of multiple si christine 10/24/2022 Elevated liver enzymes 03/28/2022 Fatty liver 03/28/2022 [...] 04/29/2023 04/19/2024 Unspecified urinary incontinence 04/23/2023 04/19/2024 Cirrhosis of liver without ascites 07/13/2022 10/08/2024 Encounters Date Type Department Care Team Description 10/14/2024 12:41 PM EDT Anesthesia Event [facility] [address] [phone] Alverto Barney MD 10/14/2024 11:56 AM EDT - 10/14/2024 11:59 PM EDT Hospital Encounter [facility] [address] [place] [address] Alverto Barney MD Konjeti, Venkata Rajesh, MD Wellman, Tyler M, CRNA Guagenti, Patricia L Gastroesophageal reflux disease, unspecified whether esophagitis present; History of cirrhosis; Bilious vomiting with nausea Discharge Disposition: Home or Self Care 10/14/2024 Travel 10/07/2024 1:20 PM EDT Office Visit [facility] [address] [place] [address] Rebekah Aragon PA Decompensated cirrhosis (CMS/HCC) (Primary Dx); Liver lesion; High risk medication use; Elevated liver enzymes; Other ascites; Hepatic encephalopathy (CMS/HCC) 10/07/2024 Travel 09/29/2024 Telephone [facility] [address] [place] [address] Rebekah Aragon PA HCN - Patient Message 09/27/2024 Telephone [facility] [address], [address] [place] [address] Yesi Melgar 09/21/2024 Telephone [facility] [address], [address] [place] [address] Jesus Tanner MD 09/20/2024 1:30 PM EDT Office Visit [facility] [address], [address] [place] [address] Jesus Tanner MD Inflammatory polyarthritis ([facility]); High risk medication use 09/20/2024 Telephone [facility] [address], [address] [place] [address] Guille Escobar new start 09/20/2024 Travel 08/31/2024 Telephone [facility] [address] [place] [address] Una Gibbons, RN 08/27/2024 Telephone [facility] [address], [address] [place] [address] Rekha Rodas RN 08/27/2024 Telephone [facility] [address] [place] [address] Jesus Tanner MD 08/24/2024 Telephone [facility] [address], [address] [place] [address] Yesi Melgar 08/23/2024 10:00 AM EDT Office Visit [facility] [address] [place] [phone] Melyssa Encinas PA Gastroesophageal reflux disease, unspecified whether esophagitis present (Primary Dx); Chronic constipation; History of cirrhosis; Bilious vomiting with nausea 08/23/2024 Telephone [facility] [address] [place] [phone] Melyssa Encinas PA HCN - Patient Message (Returning Call /Returning call ) 08/23/2024 Results Follow-Up [facility] [address] [place] [phone] Melyssa Encinas PA 08/23/2024 Orders Only [facility] [address] [place] [address] Melyssa Encinas PA Normocytic anemia (Primary Dx) 08/23/2024 Travel 08/20/2024 Telephone [facility] [address] [place] [address] Rekha Rodas, RN 08/20/2024 Telephone [facility] [address] [place] [address] Jesus Tanner MD 08/10/2024 Telephone [facility] [address], [address] [place] [address] Yesi Melgar 08/03/2024 Telephone [facility] [address] [place] [address] Afua Melo, RN 07/28/2024 Results [facility] [place] [address], [address] [place] [address] Afua Melo, RN from Last 3 Months Immunizations Immunization Administration Dates Next Due Influenza, injectable, quadr ivalent, preservative free 01/01/2023,01/04/2022,12/09/2020,11/29 Influenza, seasonal, injecta ble, preservative free 12/18/2023 Moderna COVID-19 Vaccine (Re d Cap) 12+ years 06/07/2020,05/10/2020 Pneumococcal Polysaccharide PPV23 02/19/2022 Rsvpref, Recombinant, Protei n Subunit, Adjuvent 09/23/2024 Tdap 09/24/2024 Zoster, Recombinant 09/23/2024,05/08/2023,2022 Family History Medical History Relation Name Comments Heart defect Brother 1 Shemar Hypertension Brother 1 Shemar Pancreatic cancer Brother 1 Shemar Heart defect Brother 2 Les Hypertension Brother 2 Les Hypertension Brother 3 Shemar and Les Fryman Diabetes Father Pneumonia Maternal Grandfather No Known Problems Mother Autoimmune disease Mother's Sister Kayleen Sheltoneduar Relation Name Status Comments Brother 1 Shemar Brother 2 Les Alive Brother 3 Shemar and Les Fryman Alive Father Maternal Grandfather Maternal Grandmother Mother Alive Mother's Sister Kayleen Brunker Alive Paternal Grandmother Social History Tobacco Use [...] Mass Index 46.1 10/14/2024 12:25 PM EDT Plan of Treatment Upcoming Encounters Date Type Department Care Team (Late st Contact Info) Description 11/04/2024 3:40 PM EDT Office Visit [facility] [address] [place] [address] Rebekah Aragon, JANEY [address] [place] [address] 12/29/2024 1:30 PM EDT Office Visit [facility] [address] [place] [address] Jesus Tanner MD [address] [place] [address] 02/28/2025 10:00 AM EST Office Visit [facility] [address] [place] [address] Melyssa Encinas PA [address] [place] [address] 07/12/2025 11:00 AM EDT Ovarian Cancer Screening [facility] [address] [place] [phone] Health Maintenance Due Date Last Done Comments [facility]-Medicare Annual Wellness (AWV) 1965 [facility]-Infant/Child/Adol SDOH Screenings 1965 [facility]- SDOH Screenings 1983 [facility]-Adult SDOH Screenings 1983 [facility]-Hepatitis A Vaccines (1 of 2 - Risk 2-dose series) 1984 [facility]-Hepatitis B Vaccines (1 of 3 - 19+ 3-dose series) 1984 [facility]-Pap Smear 1986 [facility]-Cervical Cancer Screening 1995 [facility]-HPV/Cotest 1995 CT Colonography 2010 FIT-DNA 2010 FIT 2010 FOBT 2010 Sigmoidoscopy 2010 [facility]-Breast Cancer Screening 2015 [facility]-Pneumococcal Vaccine: 50+ Years (2 of 2 - PCV) 02/19/2023 02/19/2022 [id number] Vaccine ( season) 2023 12/12/2021, 01/03/2021, 06/07/2020, Additional history exists [facility]-Influenza Vaccine (#1) 11/08/202412/17, 01/01/2023, 01/04/2022, Additional history exists [facility]-Depression Screening 10/07/2025 10/07/2024, 09/09 Colonoscopy 06/01/2031 05/31/2021 [facility]-Colorectal Cancer Screening 06/01/2031 [facility]-DTaP,Tdap,and Td Vaccines (2 - Td or Tdap) 09/24/2034 09/24/2024 [facility]-Diabetes: Hemoglobin A1C Discontinued 03/28/2022, 10/06/2020 [facility]-Hepatitis C Screening Completed 2024, 03/28/2022, 08/24/2021, Additional history exists [facility]-HIV Screening Completed 05/27/2024, 10/02/2020 [facility]-RSV Vaccine: 60+ Years or Discontinued 09/23/2024 [facility]-Zoster Vaccines Completed 09/23/2024, 05/08/2023, 10/24/2022 [facility]-Obesity Intervention Completed 025, 09/20/2024, 08/23/2024, Additional history exists HPV Vaccines Aged Out [...] Goal Care Plan Autogenerated Problem No Dana gN Procedures Procedure Name Priority Date/Time Associated Diagnosis Comments EGD Routine 10/14/2024 1:00 PM EDT Gastroesophageal reflux disease, unspecified whether esophagitis present History of cirrhosis Bilious vomiting with nausea SURGICAL PATHOLOGY EXAM Routine 10/15/19 12:53 PM EDT Gastroesophageal reflux disease, unspecified whether esophagitis present History of cirrhosis Bilious vomiting with nausea CBC WITH AUTO DIFFERENTIAL Routine 09/20/2024 2:05 [...] 08/23/2024 10:38 AM EDT History of cirrhosis HIV 1/2 ANTIBODY/ANTIGEN SCREEN WITH REFLEX TO [...] Recently Relevant to Health Maintenance Results * EGD (10/14/2024 1:00 PM EDT) [...] Ari Barfield MD Proceduralist Reji Dewey Endo Critical Care Transport Nurse Israel Murrell CRNA CRNA Preprocedure A history [...] of the duodenum appeared normal. us Melyssa OTTH GI PROCEDURE ORDERABLES Final R esult * Surgical Pathology Exam (10/14/2024 12:53 PM EDT) Case Report Surgical Pathology Case: [id number] Authorizing Provider: Ari Barfield, Collected: 10/14/2024 1253 MD Ordering Location: [facility] Endoscopy Received: 10/14/2024 1416 Pathologist: Bubba Bryan MD Specimen: Stomach, biopsy 10/15/2024 4:29 PM EDT [facility] Final Diagnosis STOMACH, BIOPSY: - REACTIVE GASTROPATHIC CHANGES - NO EVIDENCE OF HELICOBACTER-LIKE ORGANISMS ON ROUTINE STAIN 10/15/2024 4:29 PM EDT [facility] at 1629 EDT Clinical Information K21.9 [...] duodenum appeared normal. 10/15/2024 4:29 PM EDT [facility] Gross Description A. BIOPSY Received in formalin labeled b iopsy, stomach , are 2 pink-white soft fragments of tissue measuring from 0.3 cm to 0.6 cm in greatest dimension. Entirely submitted in cassette A1. Cold Time: 1m Lakisha Dubois 10/15/2024 4:29 PM EDT [facility] Note: A resident was involved in the service. I attest I examined the relevant preparations for the specimens and confirmed the diagnosis or interpretation. 10/15/2024 4:29 PM EDT [facility] Tissue Stomach structure / Unknown 10/14/2024 12:53 PM EDT 10/14/2024 2:16 PM EDT Ari Barfield MD LAB PATHOLOGY ORDERABL ES Final Result Performing Organization Address City/State/[facility] Co de Phone Number [facility] [address] [place] [address] * (ABNORMAL) Sedimentation Rate, Automated (09/20/2024 2:05 PM EDT) Only the most recent of2 resultswithin the time period is included. Sedimentation Rate 58(H) <30 mm/hr 2024 3:19 PM EDT [facility] Blood Venous blood specimen / Unknown Venipuncture / Unknown 09/20/2024 2:05 PM EDT 09/20/2024 2:05 PM EDT Jesus Tanner MD LAB BLOOD ORDERABLES Final Re sult [facility] [address] [place] [address] * (ABNORMAL) CBC and differential (09/20/2024 2:05 PM EDT) Only the most recent of2 resultswithin the time period is included. WBC Count 8.34 3.70 - 10.30 10*3/uL LAB HEMATOLOGY METHOD 09/20/2024 4:01 PM EDT [facility] RBC Count 3.64(L) 3.90 - 5.20 10*6/uL LAB HEMATOLOGY METHOD 09/20/2024 4:01 PM EDT [facility] HGB 11.0(L) 11.2 - 15.7 g/dL LAB HEMATOLOGY METHOD 09/20/2024 4:01 PM EDT [facility] HCT 35.9 34.0 - 45.0 % LAB HEMATOLOGY METHOD 09/20/2024 4:01 PM EDT [facility] Platelet Count 163 155 - 369 10*3/uL LAB HEMATOLOGY METHOD 09/20/2024 4:01 PM EDT [facility] MCV 99(H) 79 - 98 fL LAB HEMATOLOGY METHOD 09/20/2024 4:01 PM EDT [facility] MCH 30.2 26.0 - 32.0 pg LAB HEMATOLOGY METHOD 09/20/2024 4:01 PM EDT [facility] MCHC 30.6(L) 30.7 - 35.5 g/dL LAB HEMATOLOGY METHOD 09/20/2024 4:01 PM EDT [facility] RDW 16.0(H) 11.5 - 14.5 % LAB HEMATOLOGY METHOD 09/20/2024 4:01 PM EDT [facility] MPV 10.7 8.8 - 12.5 fL LAB HEMATOLOGY METHOD 09/20/2024 4:01 PM EDT [facility] nRBC 0.0 <=0.0 per 100 WBCs LAB HEMATOLOGY METHOD 09/20/2024 4:01 PM EDT [facility] Differential Type Automated LAB HEMATOLOGY METHOD 09/20/2024 4:01 PM EDT [facility] Neutrophils % 68 % LAB HEMATOLOGY METHOD 09/20/2024 4:01 PM EDT [facility] Lymphocytes % 25 % LAB HEMATOLOGY METHOD 09/20/2024 4:01 PM EDT [facility] Monocytes % 1 % LAB HEMATOLOGY METHOD 09/20/2024 4:01 PM EDT [facility] Eosinophils % 5 % LAB HEMATOLOGY METHOD 09/20/2024 4:01 PM EDT [facility] Basophils % 1 % LAB HEMATOLOGY METHOD 09/20/2024 4:01 PM EDT [facility] Immature Granulocytes % 0 % LAB HEMATOLOGY METHOD 09/20/2024 4:01 PM EDT [facility] Neutrophils Absolute 5.55 1.60 - 6.10 10*3/uL LAB HEMATOLOGY METHOD 09/20/2024 4:01 PM EDT [facility] Lymphocytes Absolute 2.12 1.20 - 3.90 10*3/uL LAB HEMATOLOGY METHOD 09/20/2024 4:01 PM EDT [facility] Monocytes Absolute 0.12(L) 0.30 - 0.90 10*3/uL LAB HEMATOLOGY METHOD 09/20/2024 4:01 PM EDT [facility] Eosinophils Absolute 0.44 0.00 - 0.50 10*3/uL LAB HEMATOLOGY METHOD 09/20/2024 4:01 PM EDT [facility] Basophils Absolute 0.08 0.00 - 0.10 10*3/uL LAB HEMATOLOGY METHOD 09/20/2024 4:01 PM EDT [facility] Immature Granulocytes Absolute 0.03 0.00 - 0.06 10*3/uL LAB HEMATOLOGY METHOD 09/20/2024 4:01 PM EDT [facility] Blood Venous blood specimen / Unknown Venipuncture / Unknown 09/20/2024 2:05 PM EDT 09/20/2024 2:05 PM EDT Narrative [facility] - 09/20/2024 4:01 PM EDT Therapeutic decision making should be based on absolute values, rather than percentages. us Jesus Tanner MD LAB BLOOD ORDERABLES Final Re sult [facility] [address] [place] [address] * C-reactive protein (09/20/2024 2:05 PM EDT) Only the most recent of2 resultswithin the time period is included. CRP, Plasma 6.7 <=8.0 mg/L 09/20/2024 3:14 PM EDT [facility] Blood Venous blood specimen / Unknown Venipuncture / Unknown 09/20/2024 2:05 PM EDT 09/20/2024 2:05 PM EDT Narrative [facility] - 09/20/2024 3:14 PM EDT This CRP test is appropriate for assessment of infection, systemic inflammation and/or tissue injury. To assess cardiovascular disease risk order high sensitivity CRP (CRPH). us Jesus Tanner MD LAB BLOOD ORDERABLES Final Re sult [facility] [address] [place] [address] * (ABNORMAL) Comprehensive metabolic panel (09/20/2024 2:05 PM EDT) Only the most recent of2 resultswithin the time period is included. Glucose, Plasma 117(H) 74 - 99 mg/dL 09/20/2024 3:14 PM EDT [facility] BUN, Plasma 13 7 - 21 mg/dL 09/20/2024 3:14 PM EDT [facility] Creatinine, Plasma 0.91 0.60 - 1.10 mg/dL 09/20/2024 3:14 PM EDT [facility] BUN/Creatinine Ratio 09/20/2024 3:14 PM EDT [facility] Sodium, Plasma 140 136 - 145 mmol/L 09/20/2024 3:14 PM EDT [facility] Potassium, Plasma 3.8 3.6 - 4.9 mmol/L 09/20/2024 3:14 PM EDT [facility] Chloride, Plasma 106 97 - 107 mmol/L 09/20/2024 3:14 PM EDT [facility] CO2, Plasma 22 22 - 29 mmol/L 09/20/2024 3:14 PM EDT [facility] Anion Gap 12 6 - 16 mmol/L 09/20/2024 3:14 PM EDT [facility] Total Calcium, Plasma 9.3 8.9 - 10.2 mg/dL 09/20/2024 3:14 PM EDT [facility] Total Protein 7.5 6.3 - 7.9 g/dL 09/20/2024 3:14 PM EDT [facility] Albumin, Plasma 3.7 3.5 - 5.2 g/dL 09/20/2024 3:14 PM EDT [facility] AST, Plasma 54(H) 10 - 35 U/L 09/20/2024 3:14 PM EDT [facility] ALT, Plasma 30 10 - 35 U/L 09/20/2024 3:14 PM EDT [facility] Alkaline Phosphatase, Plasma 180(H) 46 - 142 U/L 09/20/2024 3:14 PM EDT [facility] Total Bilirubin, Plasma 1.7(H) 0.2 - 1.1 mg/dL 09/20/2024 3:14 PM EDT [facility] eGFRcr 72.8 mL/min/1.7 3m*2 09/20/2024 3:14 PM EDT [facility] Comment:Reported eGFRcr in m L/min/1.73m2 is based the CKD-EPI 2020 equation that does not use a race coefficient. Blood Venous blood specimen / Unknown Venipuncture / Unknown 09/20/2024 2:05 PM EDT 09/20/2024 2:05 PM EDT us Jesus Tanner MD LAB BLOOD ORDERABLES Final Re sult [facility] [address] [place] [address] * (ABNORMAL) Alpha Fetoprotein, Serum (08/23/2024 10:38 AM EDT) Alpha Fetoprotein, Serum 10.5(H) <10.0 ng/mL 08/23/2024 11:54 AM EDT [facility] Blood Venous blood specimen / Unknown Venipuncture / Unknown 08/23/2024 10:38 AM EDT 08/23/2024 10:39 AM EDT Narrative [facility] - 08/23/2024 11:54 AM EDT Performed by Brandi electrochemiluminescent immunoassay which is traceable to the [address] [place] [address] WHO Reference standard 72/255. Results obtained with different test methods or kits cannot be used interchangeably. Melyssa TOTH LAB BLOOD ORDERABLES Final Resu lt Performing Organization Address [facility] Co de Phone Number [facility] [address] [place] [address] * (ABNORMAL) Iron & Total Iron Binding Capacity, Plasma (Includes Transferrin) (08/23/2024 10:38 AM EDT) Iron, Plasma 43 30 - 160 ug/dL 08/23/2024 1:07 PM EDT [facility] Transferrin, Plasma 187(L) 200 - 360 mg/dL 08/23/2024 1:07 PM EDT [facility] Total Iron Binding Capacity, Plasma 234(L) 240 - 450 ug/mL 08/23/2024 1:07 PM EDT [facility] Transferrin Saturation 18 14 - 50 % 08/23/2024 1:07 PM EDT [facility] Blood Venous blood specimen / Unknown Venipuncture / Unknown 08/23/2024 10:38 AM EDT 08/23/2024 10:39 AM EDT Melyssa TOTH LAB BLOOD ORDERABLES Final Resu lt Performing Organization Address City/[facility] Co de Phone Number [facility] [address] [place] [address] * (ABNORMAL) Protime-INR (08/23/2024 10:38 AM EDT) Prothrombin Time 17.7(H) 12.0 - 14.3 sec LAB COAGULATION METHOD 08/23/2024 1:05 PM EDT [facility] INR 1.4(H) 0.9 - 1.1 LAB COAGULATION METHOD 08/23/2024 1:05 PM EDT [facility] Blood Venous blood specimen / Unknown Venipuncture / Unknown 08/23/2024 10:38 AM EDT 08/23/2024 10:39 AM EDT Narrative [facility] - 08/23/2024 1:05 PM EDT OPTIMAL INR RANGES FOR PATIENT ON ORAL ANTICOAGULANT THERAPY Prevention of venous thromboembolism INR 2.0 to 3.0 In patients with heart disease: Atrial fibrillation INR 2.0 to 3.0 Valvular heart disease INR 2.0 to 3.0 Tissue heart valves INR 2.0 to 3.0 Mechanical prosthetic valves INR 2.5 to 3.5 Prevention of recurrent TX INR 2.5 to 3.5 Melyssa TOTH LAB BLOOD ORDERABLES Final Resu lt Performing Organization Address [facility]/ZIP Co de Phone Number [address] [address] * Folate (08/23/2024 10:38 AM EDT) Folate, Serum >20.0 >4.6 ng/mL 08/23/2024 1:31 PM EDT [facility] Blood Venous blood specimen / Unknown Venipuncture / Unknown 08/23/2024 10:38 AM EDT 08/23/2024 10:39 AM EDT Melyssa TOTH LAB BLOOD ORDERABLES Final Resu lt Performing Organization Address [facility] [place] [address] * (ABNORMAL) Ferritin (08/23/2024 10:38 AM EDT) Ferritin, Serum 456(H) 13 - 150 ng/mL 08/23/2024 11:54 AM EDT [facility] Blood Venous blood specimen / Unknown Venipuncture / Unknown 08/23/2024 10:38 AM EDT 08/23/2024 10:39 AM EDT Jesus Tanner MD LAB BLOOD ORDERABLES Final Re sult Performing Organization Address City/[facility]/ZIP Co de Phone Number [facility] [address] [place] [address] * Vitamin B12 (08/23/2024 10:38 AM EDT) Pathologist [facility] Vitamin B12, Serum 762 210 - 1,033 pg/mL 08/23/2024 1:[address] [facility] Blood Venous blood specimen / Unknown Venipuncture / Unknown 08/23/2024 10:38 AM EDT 08/23/2024 10:39 AM EDT us Melyssa TOTH LAB BLOOD ORDERAB[place] [address] * HIV 1 & 2 Antibody/Antigen Screen (05/27/2024 1:38 PM EDT) [facility] HIV 1 & 2 Antibody/Antigen Screen Non Reactive Non Reactive 05/27/2024 2:56 PM EDT [facility] Comment:Screening for HIV 1 & 2 antibodies, and P24 antigen is NONREACTIVE. No confirmatory testing is required. Blood Venous blood specimen / Unknown Venipuncture / Unknown 05/27/2024 1:38 PM EDT 05/27/2024 1:41 PM EDT us Marv Brown MD LAB BLOOD ORDERABLES Final Res ult [facility] [address] [place] [address] * Hepatitis C Antibody (04/19/2024 3:28 PM EST) [facility] Hepatitis C Antibody Negative Negative 04/19/2024 5:[address] [facility] Blood Venous blood specimen / Unknown Venipuncture / Unknown 04/19/2024 3:28 PM EST 04/19/2024 3:29 PM EST us Jesus Tanner MD LAB BLOOD ORDERABLES Final Re sult [facility] [address] [place] [address] * Hemoglobin A1c (03/28/2022 12:04 PM EST) Hemoglobin A1c 5.5 <5.7 % 03/28/2022 2:10 PM EST [facility] Blood Venous blood specimen / Unknown Venipuncture / Unknown 03/28/2022 12:04 PM EST 03/28/2022 12:05 PM EST Narrative [facility] - 03/28/2022 2:10 PM EST HA1C Interpretive Data: Diagnosis of Diabetes: Diabetic > or = 6.5% Pre-diabetic 5.7 to 6.4% Non-diabetic < or = 5.6% Glycemic Targets for Type I and Type II Diabetics: Non- Adults <7.0% Adults <6.0% Children and Adolescents <7.5% Source: [place] [employer]. Standards of medical care in diabetes,2017. Diabetes Care.2017:40 (suppl 1):S1-S135. HbA1c assay performed by an ion-exchange chromatography method that is certified traceable to the DCCT. us Rebekah TOTH LAB BLOOD ORDERABLES Final Resu lt [facility] [address] [place] [address] * Colonoscopy (05/31/2021 8:36 AM EDT) Anatomical [...] MD Proceduralist Mary Mares, RN Endo Nurse Candis Austin, MOUNA Amaya, RN Endo Nurse Preprocedure A history and physical [...] of bowel preparation was evaluated using the [place] Bowel Preparation Scale with scores of: right [...] SURGICAL PATHOLOGY EXAM Aamir Banuelos MD 05/31/2021 0826 D : random colon Tissue Large Intestine SURGICAL PATHOLOGY EXAM Aamir Banuelos MD 05/31/2021 0826 Findings The terminal ileum appeared normal. Performed random biopsy. The entire colon appeared normal. Performed random biopsy. Few small diverticula in the sigmoid colon us Aamir Banuelos MD GI PROCEDURE ORDERABLES Fin al Result from Last 3 Months or Most Recently Relevant to Health Maintenance Additional Health Concerns Active Problems Noted Date Diagnosed Date Autogenerated Problem 08/24/2024 Insurance [facility] MEDICARE Advance Directives * Full Code (Latest Code Status on File) Date Activated Date Inactivated Comments 04/05/2022 11:15 AM 04/06/2022 2:46 AM Question Answer Comments Patient has decision-making capacity? Yes * Full Code Date Activated Date Inactivated Comments 10/02/2020 12:39 PM 10/19/2020 8:02 PM Question Answer Comments Patient has decision-making capacity? Yes Care Teams Brick Tender Relationship Specialty Start Date End Date Dru Giles MD PCP - General 11/21/21
--- OUTSIDE RECORDS SUMMARY | 2024-10-22 10:02 | XMS_ITS | Encounter Summary ---
Author Organization Healthcare Address [address] [place] [address] Care Team Providers Care Durability Technician Name Role Phone Dru Giles MD Primary Care Provider [phone] Encounter Details Date Type Department Care Team (Latest Contact Info) Description 10/07/2024 Travel Social History Tobacco Use Types Packs/Day [...] all 10/07/2024 1:12 PM EDT Jenn Reinoso * How difficult have these problems made it for you to do your work, take care of things at home, or get along with other people? Answer Date of Assessment Author Not difficult at all 10/07/2024 1:12 PM EDT Shira Murphy documented as of this encounter Plan of Treatment Upcoming Encounters Date Type Department Care Team (Late st Contact Info) Description 11/04/2024 3:40 PM EDT Office Visit [facility] Specialties [address], [address] [place] [address] Rebekah Aragon PA [address] [place] [address] 12/29/2024 1:30 PM EDT Office Visit [facility] [address], [address]nd [place] [address] Jesus Tannre MD [address] [place] [address] 02/28/2025 10:00 AM EST Office Visit [facility] [address], [address] [place] [address] Melyssa Encinas PA [address] [place] [address] 07/12/2025 11:00 AM EDT Ovarian Cancer Screening [facility] Gynecology [address] [facility], 3rd [place] [address] documented as of this encounter Goals Goal [...] documented as of this encounter Care Teams Durability Technician Relationship Specialty Start Date End Date Dru Giles MD PCP - General 11/21/21 documented as of this encounter
--- OUTSIDE RECORDS SUMMARY | 2024-10-22 10:02 | XMS_ITS | Encounter Summary ---
Author Organization Healthcare Address [address] [place] [address] Care Team Providers Care Logistics Operations Director Name Role Phone Dru Giles MD Primary Care Provider [phone] Encounter Details Date Type Department Care Team (Late st Contact Info) Description 08/27/2024 Telephone [facility] Specialties [address], [address] [place] [address] Jesus Tanner MD [address] [place] [address] Social History Tobacco Use Types [...] Notes * Telephone Encounter - Agata Cadena - 08/27/2024 12:07 PM EDT Clinical Concern/Question Reason for Call: Pt states her eyes have changed to a different color shade and she is wanting to know if that was normal. Please call. Best contact number: [phone] (home) Optimal time of day to reach [...] will receive notification of the communication/outcome via Appifier. documented in this encounter Plan of Treatment Upcoming Encounters Date Type Department Care Team (Late st Contact Info) Description 11/04/2024 3:40 PM EDT Office Visit [facility] Medicine Specialties [address], [address] [place] [address] Rebekah Aragon, PA [address] [place] [address] 12/29/2024 1:30 PM EDT Office Visit [facility] Medicine Specialties [address], [address] [place] [address] Jesus Tanner MD [address] [place] [address] 02/28/2025 10:00 AM EST Office Visit [facility] Medicine Specialties [address], [address] [place] [address] Melyssa Encinas PA [address] [place] [address] 07/12/2025 11:00 AM EDT Ovarian Cancer Screening [facility] [address] [place] [address] documented as of this encounter Goals Goal [...] documented as of this encounter Care Teams Logistics Operations Director Relationship Specialty Start Date End Date Dru Giles MD PCP - General 11/21/21 documented as of this encounter
--- OUTSIDE RECORDS SUMMARY | 2024-10-22 10:02 | XMS_ITS | Encounter Summary ---
Author Organization Healthcare Address [address] [place] [id number] Care Team Providers Care Logging Tractor Operator Name Role Phone Dru Giles MD Primary Care Provider [phone] Encounter Details Date Type Department Care Team (Late st Contact Info) Description 08/23/2024 Orders Only [facility] Medicine Specialties [address], [address] [place] [address] Melyssa Encinas PA [address] [place] [address] Normocytic anemia (Primary Dx) Social [...] Not at all 08/23/2024 9:43 AM EDT Braulio Heckpest A Patient Health Questionnaire -2 Score [...] Description 11/04/2024 3:40 PM EDT Office Visit [facility] Medicine Specialties [address], [address]nd [place] [address] Rebekah Aragon PA [address] [place] [address] 12/29/2024 1:30 PM EDT Office Visit [facility] Medicine Specialties [address], [address] [place] [address] Jesus Tanner MD [address] [place] [address] 02/28/2025 10:00 AM EST Office Visit [facility] Medicine Specialties [address], [address] [place] [address] Melyssa Encinas PA [address] [place] [address] 07/12/2025 11:00 AM EDT Ovarian Cancer Screening [facility] [address] [place] [address] documented as of this encounter Results * (ABNORMAL) Iron & Total Iron Binding Capacity, Plasma (Includes Transferrin) (08/23/2024 10:38 AM EDT) Iron, Plasma 43 30 - 160 ug/dL 08/23/2024 1:07 PM EDT [facility] Transferrin, Plasma 187(L) 200 - 360 mg/dL 08/23/2024 1:07 PM EDT [facility] Total Iron Binding Capacity, Plasma 234(L) 240 - 450 ug/mL 08/23/2024 1:07 PM EDT [facility] Transferrin Saturation 18 14 - 50 % 08/23/2024 1:07 PM EDT [facility] Blood Venous blood specimen / Unknown Venipuncture / Unknown 08/23/2024 10:38 AM EDT 08/23/2024 10:39 AM EDT us Melyssa TOTH LAB BLOOD ORDERABLES Final Resu lt Performing Organization Address City/[facility]/ZIP Co de Phone Number [facility] [address] [place] [address] * Folate (08/23/2024 10:38 AM EDT) Folate, Serum >20.0 >4.6 ng/mL 08/23/2024 1:31 PM EDT [facility] Blood Venous blood specimen / Unknown Venipuncture / Unknown 08/23/2024 10:38 AM EDT 08/23/2024 10:39 AM EDT us Melyssa Eddy Ce TOTH LAB BLOOD ORDERABLES Final Resu lt Performing Organization Address [facility] Co de Phone Number [facility] [address] [place] [address] * Vitamin B12 (08/23/2024 10:38 AM EDT) Vitamin B12, Serum 762 210 - 1,033 pg/mL 08/23/2024 1:31 PM EDT [facility] Blood Venous blood specimen / Unknown Venipuncture / Unknown 08/23/2024 10:38 AM EDT 08/23/2024 10:39 AM EDT us Melyssa Eddy Ce TOTH LAB BLOOD ORDERABLES Final Resu lt Performing Organization Address [facility] [place] [address] documented in this encounter Visit Diagnoses Diagnosis [...] documented as of this encounter Care Teams Logging Tractor Operator Relationship Specialty Start Date End Date Dru Giles MD PCP - General 11/21/21 documented as of this encounter
--- OUTSIDE RECORDS SUMMARY | 2024-10-22 10:02 | XMS_ITS | Encounter Summary ---
Author Organization Healthcare Address [address] [place] [address] Care Team Providers Care Customer Service Supervisor Name Role Phone Dru Giles MD Primary Care Provider [phone] Reason for Visit * Reason Onset Date Comments HCN - Patient Message 08/23/2024 Returning Call Returning call Encounter Details Date Type Department Care Team (Late st Contact Info) Description 08/23/[address] [facility] Medicine Specialties [address], [address] [place] [address] Melyssa Encinas PA [address] [place] [address] HCN - Patient Message (Returning [...] optimal time of day to reach caller: [phone] Note: Please do not reply to this [...] 11/04/2024 3:40 PM EDT Office Visit [facility] Medicine Specialties [address], [address] [place] [address] Rebekah Aragon PA [address] [place] [address] 12/29/2024 1:30 PM EDT Office Visit [facility] Medicine Specialties [address], [address] [place] [address] Jesus Tanner MD [address] [place] [address] 02/28/2025 10:00 AM EST Office Visit [facility] Medicine Specialties [address], [address] [place] [address] Melyssa Encinas PA [address] [place] [address] 07/12/2025 11:00 AM EDT Ovarian Cancer Screening [facility] [address], [address]rd [place] [address] documented as of this encounter Visit Diagnoses [...] documented as of this encounter Care Teams Customer Service Supervisor Relationship Specialty Start Date End Date Dru Giles MD PCP - General 11/21/21 documented as of this encounter
--- OUTSIDE RECORDS SUMMARY | 2024-10-22 10:02 | XMS_ITS | Encounter Summary ---
Author Organization Healthcare Address [address] [place] [address] Care Team Providers Care Coater Carbon Paper Name Role Phone Dru Giles MD Primary Care Provider [phone] Encounter Details Date Type Department Care Team [...] all 08/23/2024 9:43 AM EDT Jas khan Temjorit A Trouble concentrating on thi ngs, such [...] Description 11/04/2024 3:40 PM EDT Office Visit [facility] Medicine Specialties [address], [address] [place] [address] Rebekah Aragon PA [address] [place] [address] 12/29/2024 1:30 PM EDT Office Visit [facility] Medicine Specialties [address], [address] [place] [address] Jesus Tanner MD [address] [place] [address] 02/28/2025 10:00 AM EST Office Visit [facility] Specialties [address], [address] [place] [address] Melyssa Encinas PA [address] [place] [address] 07/12/2025 11:00 AM EDT Ovarian Cancer Screening [facility] [address] [place] [address] documented as of this encounter Visit Diagnoses [...] documented as of this encounter Care Teams Coater Carbon Paper Relationship Specialty Start Date End Date Dru Giles MD PCP - General 11/21/21 documented as of this encounter
--- OUTSIDE RECORDS SUMMARY | 2024-10-22 10:02 | XMS_ITS | Encounter Summary ---
Author Organization Healthcare Address [address] [place] [address] Care Team Providers Care Construction Director Name Role Phone Dru Giles MD Primary Care Provider [phone] Encounter Details Date Type Department Care Team (Late st Contact Info) Description 08/23/2024 Results Follow-Up [facility] Medicine Specialties [address], [address] [place] [address] Melyssa Encinas PA [address] [place] [address] Social History Tobacco Use Types [...] 12:26 PM EDT Jane Ortega RN * Over the past 2 weeks, how [...] encounter Miscellaneous Notes * Telephone Encounter - Samantha Morataya CNA - 10/22/2024 9:49 AM EDT Attempted to contact patient to get appointment scheduled. Left VM and CBN * Telephone Encounter - Samantha Morataya CNA - 10/22/2024 9:49 AM EDT ----- Message from JANEY Keita sent at 10/18/2024 8:00 AM EDT ----- Please give a follow up in person on a Friday or Via Fri-fri in a few weeks to discussed EGD thanks ----- Message ----- From: Ari Barfield MD Sent: 10/14/2024 12:59 PM EDT To: JANEY Castellano * Result Encounter Note - Melyssa Encinas [...] Description 11/04/2024 3:40 PM EDT Office Visit [facility] Medicine Specialties [address], [address] [place] [address] Rebekah Aragon PA [address] [place] [address] 12/29/2024 1:30 PM EDT Office Visit [facility] Medicine Specialties [address], [address] [place] [address] Jesus Tanner MD [address] [place] [address] 02/28/2025 10:00 AM EST Office Visit [facility] Medicine Specialties [address], [address] [place] [address] Melyssa Encinas PA [address] [place] [address] 07/12/2025 11:00 AM EDT Ovarian Cancer Screening [facility] [address] [facility], [address]rd [place] [address] documented as of this encounter Visit Diagnoses [...] documented as of this encounter Care Teams Construction Director Relationship Specialty Start Date End Date Dru Giles MD PCP - General 11/21/21 documented as of this encounter
--- OUTSIDE RECORDS SUMMARY | 2024-10-22 10:02 | XMS_ITS | Encounter Summary ---
Author Organization Healthcare Address [address] [place] [address] Care Team Providers Care Tubing Machine Tender Name Role Phone Dru Giles MD Primary Care Provider [phone] Encounter Details Date Type Department Care Team (Late st Contact Info) Description 08/20/2024 Telephone [facility] Specialties [address], [address] [place] [address] Jesus Tanner MD [address] [place] [address] Social History Tobacco Use Types [...] to speak with you Best contact number: [phone] (home) Optimal time of day to reach caller: ANYTIME Additional comments/information from caller: None Note: Please do not reply to this message. Follow-up communication and further actions as a result of this message need to be communicated with the patient directly, if the patient is not active onMyChart. If the patient is active on MyChart, they will receive notification of the communication/outcome via NATIONSPLAYt. documented in this encounter Plan of Treatment Upcoming Encounters Date Type Department Care Team (Late st Contact Info) Description 11/04/2024 3:40 PM EDT Office Visit [facility] Medicine Specialties [address], [address] [place] [address] Rebekah Aragon PA [address] [place] [address] 12/29/2024 1:30 PM EDT Office Visit [facility] Medicine Specialties [address], [address] [place] [address] Jesus Tanner MD [address] [place] [address] 02/28/2025 10:00 AM EST Office Visit [facility] Medicine Specialties [address], [address] [place] [address] Melyssa Encinas PA [address] [place] [address] 07/12/2025 11:00 AM EDT Ovarian Cancer Screening [facility] [address] [facility], 3rd [place] [address] documented as of this encounter Visit Diagnoses [...] documented as of this encounter Care Teams Tubing Machine Tender Relationship Specialty Start Date End Date Dru Giles MD PCP - General 11/21/21 documented as of this encounter
--- OUTSIDE RECORDS SUMMARY | 2024-10-22 10:02 | XMS_ITS | Encounter Summary ---
Author Organization [facility] Address [address] [place] [address] Care Team Providers Care Caustic Mixer Name Role Phone Dru Giles MD Primary Care Provider [phone] Encounter Details Date Type Department Care Team (Late st Contact Info) Description 08/24/2024 Telephone [facility] Medicine Specialties [address], [address] [place] [address] [place] [address] Social History Tobacco Use Types Packs/Day Years [...] and she threw up this morning CB: [phone] documented in this encounter Plan of Treatment Upcoming Encounters Date Type Department Care Team (Late st Contact Info) Description 11/04/2024 3:40 PM EDT Office Visit [facility] Medicine Specialties [address], [address] [place] [address] Rebekah Aragon PA [address] [place] [address] 12/29/2024 1:30 PM EDT Office Visit [facility] Medicine Specialties [address], [address] [place] [address] Jesus Tanner MD [address] [place] [address] 02/28/2025 10:00 AM EST Office Visit [facility] Medicine Specialties [address], [address] [place] [address] Melyssa Encinas PA [address] [place] [address] 07/12/2025 11:00 AM EDT Ovarian Cancer Screening [facility] [address], [address] [place] [address] documented as of this encounter Goals Goal [...] documented as of this encounter Care Teams Caustic Mixer Relationship Specialty Start Date End Date Dru Giles MD PCP - General 11/21/21 documented as of this encounter
--- OUTSIDE RECORDS SUMMARY | 2024-10-22 10:03 | XMS_ITS | Encounter Summary ---
Author Organization [facility] Address [address] [place] [address] Care Team Providers Care Hookman Name Role Phone Dru Giles MD Primary Care Provider [phone] Encounter Details Date Type Department Care Team (Late st Contact Info) Description 08/27/2024 Telephone [facility] Medicine Specialties [address], [address] [place] [address] Rekha Rodas, RN CH-VASCULAR & [...] Upcoming Encounters Date Type Department Care Team ([facility] st Contact Info) Description 11/04/2024 3:40 PM EDT Office Visit [facility] Medicine Specialties [address], [address] [place] [address] Rebekah Aragon PA [address] [place] [address] 12/29/2024 1:30 PM EDT Office Visit [facility] [address], [address]nd [place] [address] Jesus Tanner MD [address] [place] [address] 02/28/2025 10:00 AM EST Office Visit [facility] Medicine Specialties [address], [address] [place] [address] Melyssa Encinas PA [address] [email or web address] [address] [place] [address] 07/12/2025 11:00 AM EDT Ovarian Cancer Screening [facility] [address] [facility], 3rd [place] [address] documented as of this encounter Goals Goal [...] documented as of this encounter Care Teams Hookman Relationship Specialty Start Date End Date Dru Giles MD PCP - General 11/21/21 documented as of this encounter
--- OUTSIDE RECORDS SUMMARY | 2024-10-22 10:03 | XMS_ITS | Encounter Summary ---
Author Organization Healthcare Address [address] [place] [address] Care Team Providers Care Head Of Commission Department Name Role Phone Dru Giles MD Primary Care Provider [phone] Encounter Details Date Type Department Care Team (Latest Contact Info) Description 10/14/2024 Travel Social History Tobacco Use Types Packs/Day [...] Ortega RN documented as of this encounter Plan of Treatment Upcoming Encounters Date Type Department Care Team (Late st Contact Info) Description 11/04/2024 3:40 PM EDT Office Visit [facility] Medicine Specialties [address], [address] [place] [address] Rebekah Aragon PA [address] [place] [address] 12/29/2024 1:30 PM EDT Office Visit [facility] Medicine Specialties [address], [address] [place] [address] Jesus Tanner MD [address] [place] [address] 02/28/2025 10:00 AM EST Office Visit [facility] Medicine Specialties [address], [address] [place] [address] Melyssa Encinas PA [address] [place] [address] 07/12/2025 11:00 AM EDT [facility]ian [facility] [address], [address] [place] [address] documented as of this encounter Goals Goal [...] documented as of this encounter Care Teams Head Of Commission Department Relationship Specialty Start Date End Date Dru Giles MD PCP - General 11/21/21 documented as of this encounter
--- OUTSIDE RECORDS SUMMARY | 2024-10-22 10:03 | XMS_ITS | Encounter Summary ---
Author Organization [facility] Address [address] [id number] Care Team Providers Care Designer Name Role Phone Dru Giles MD Primary Care Provider [phone] Encounter Details Date Type Department Care Team (Late st Contact Info) Description 08/31/2024 Telephone [facility] [address], [address] [place] [id number] Una Gibbons, RN Social History Tobacco Use [...] current 10/07 appt to wait list CB: [phone] * Telephone Encounter - Corky Sutherland, RN [...] Description 11/04/2024 3:40 PM EDT Office Visit [facility] Specialties [address], [address] [place] [address] Rebekah Aragon PA [address] [place] [address] 12/29/2024 1:30 PM EDT Office Visit [facility] [address] [place] [address] Jesus Tanner MD [address] [place] [address] 02/28/2025 10:00 AM EST Office Visit [facility] [address] [place] [address] Melyssa Encinas PA [address] [place] [address] 07/12/2025 11:00 AM EDT Ovarian Cancer Screening [facility] Gynecology [address] [place] [address] documented as of this encounter Goals Goal [...] documented as of this encounter Care Teams Designer Relationship Specialty Start Date End Date Dru Giles MD PCP - General 11/21/21 documented as of this encounter
--- OUTSIDE RECORDS SUMMARY | 2024-10-22 10:03 | XMS_ITS | Encounter Summary ---
Author Organization Healthcare Address [address] [place] [address] Care Team Providers Care Grain Combiner Name Role Phone Dru Giles MD Primary Care Provider [phone] Reason for Visit * Reason Onset Date Comments Odilia new start 09/20/2024 Encounter Details Date Type Department Care Team (Late st Contact Info) Description 09/20/2024 Telephone [facility] [address], [address] [place] [address] Guille Escobar new start Social History Tobacco [...] 0 09/20/2024 1:07 PM EDT Yara Covarrubias R * Question Answer Date of Assessment Author Q1: How often do you have a drink containing alcohol? Never 09/20/2024 1:07 PM EDT Rachel Covarrubias R Q2: How many drinks containing alcohol do you have on a typical day when you are drinking? Patient does not drink 09/20/2024 1:07 PM EDT Yara Covarrubias R Q3: How often do you have six [...] Notes * Telephone Encounter - Shawna Jackson [facility] - 09/21/2024 2:59 PM EDT [facility] Specialty Medication Initial Care Plan Marizol Bishop is a 59 y.o. female assessed via phone for initiation of drug therapy Humira CF for diagnosis RA. Plan for administration of therapy in patient's home Therapeutic Category: Rheumatoid Arthritis Chart Review Allergies: Bee venom, Compleat, Morphine, Other, Penicillin g, Shellfish-derived products, Sulfacetamide, Wheat, Yeast, Pork allergy, Shellfish allergy, Trimethoprim, Diphth-acell pertussis-tetanus, Dtap-hepatitis b recomb-ipv, Sfll-xwp-xun-hepatitis b recmb, Penicillin v potassium, Penicillins, Sulfa [...] mg, Nightly Multiple Vitamins-Minerals (EQ One [employer] tablet 1 tablet, Daily ondansetron (ZOFRAN) 4 [...] injectable, preservative free 12/18/2023 Moderna COVID-19 Vaccine (Director Of Intelligence) 12+ years 05/10/2020, 06/07/2020, 01/03/2021 Moderna COVID-19 [...] Tried and failed: methotrexate. Rx sent to [facility]. Hydroxychloroquine contraindicated due to macular degeneration. [...] and how to avoid DDIs by calling [facility] before addin g/changing any medications. Pt [...] with labs ordered by provider. Pt willcontact [facility] if they have any other questions [...] PM EDT I attest to the pharmacy services director's recommendations. Thanks! Angelo Banks documented in this encounter Plan of Treatment Upcoming Encounters Date Type Department Care Team (Late st Contact Info) Description 11/04/2024 3:40 PM EDT Office Visit [facility] Medicine Specialties [address] [place] [address] Rebekah Aragon PA [address] [place] [address] 12/29/2024 1:30 PM EDT Office Visit [facility] Medicine Specialties [address] [place] [address] Jesus Tanner MD [address] [place] [address] 02/28/2025 10:00 AM EST Office Visit [facility] Medicine Specialties [address] [place] [address] Melyssa Encinas PA [address] [place] [address] 07/12/2025 11:00 AM EDT Ovarian Cancer Screening [facility] Gynecology [address] [facility], [address]rd [place] [address] documented as of this encounter Goals Goal Patient Goal Type Associated Problems Recent Progress Patient-Stated? Author Autogenerat ed Goal Care Plan Autogenerated Problem No Dana Ng documented as of this encounter Visit Diagnoses Diagnosis Seronegative rheumatoid arthritis of multiple sites (CMS/HCC)- Primary documented in this encounter Additional Health [...] documented as of this encounter Care Teams Grain Combiner Relationship Specialty Start Date End Date Dru Giles MD PCP - General 11/21/21 documented as of this encounter
--- OUTSIDE RECORDS SUMMARY | 2024-10-22 10:03 | XMS_ITS | Encounter Summary ---
Author Organization Healthcare Address [address] [place] [address] Care Team Providers Care Credit Collection Specialist Name Role Phone Dru Giles MD Primary Care Provider [phone] Encounter Details Date Type Department Care Team [...] Description 11/04/2024 3:40 PM EDT Office Visit [facility] Medicine Specialties [address] [place] [address] Rebekah Aragon PA [address] [place] [address] 12/29/2024 1:30 PM EDT Office Visit [facility] [address] [place] [address] Jesus Tanner MD [address] [place] [address] 02/28/2025 10:00 AM EST Office Visit [facility] Medicine Specialties [address] [place] [address] Melyssa Encinas PA [address] [place] [address] 07/12/2025 11:00 AM EDT Ovarian Cancer Screening [facility] [address] [place] [address] documented as of this encounter Goals Goal [...] documented as of this encounter Care Teams Credit Collection Specialist Relationship Specialty Start Date End Date Dru Giles MD PCP - General 11/21/21 documented as of this encounter
--- OUTSIDE RECORDS SUMMARY | 2024-10-22 10:03 | XMS_ITS | Encounter Summary ---
Author Organization Healthcare Address [address] [place] [address] Care Team Providers Care Chief Librarian Branch Name Role Phone Dru Giles MD Primary Care Provider [phone] Encounter Details Date Type Department Care Team (Late st Contact Info) Description 09/21/2024 Telephone [facility] [address] [place] [address] Jesus Tanner MD [address] [place] [address] Social History Tobacco Use Types [...] further action needed. * Telephone Encounter - Agtaa Cadena - 09/21/2024 12:28 PM EDT Status Update Call #1 1st call regarding the status of the initial request. Best contact number: [phone] (home) Optimal time of day to reach [...] returning call. Please call. Best contact number: [phone] (home) Optimal time of day to reach [...] Description 11/04/2024 3:40 PM EDT Office Visit [facility] [place] Specialties [address] [place] [address] Rebekah Aragon PA [address] [place] [address] 12/29/2024 1:30 PM EDT Office Visit [facility] [address], [address] [place] [address] Jesus Tanner MD [address] [place] [address] 02/28/2025 10:00 AM EST Office Visit [facility] [address] [place] [address] Melyssa Encinas PA [address] [place] [address] 07/12/2025 11:00 AM EDT Ovarian Cancer Screening [facility] [address] [facility], 3rd [place] [address] documented as of this encounter Goals Goal [...] as of this encounter Care Teams Chief Librarian Branch Relationship Specialty Start Date End Date Dru Giles MD PCP - General 11/21/21 documented as of this encounter
--- OUTSIDE RECORDS SUMMARY | 2024-11-27 20:00 | XMS_ITS | Clinical Summary ---
Author Organization Unknown Care Team Providers [facility] Machine Tender Name Role Phone JAGDISH RILEY, BHAVANA Unavailable Unavailable GATITO RN, ANKITA Unavailable Unavailable BRADLY HYDROELECTRIC STATION CHIEF, DAVIS Unavailable Unavailable JEMMA PT, ANA Unavailable Unavailable RIGO ACCESS SPEC, CORNELIUS Unavailable Unavailable CHERRI OT, XAVI Unavailable Unavailable Payers Payer Name Policy Type Policy Number Effective Date Expira tion Date [employer]ela.MATT.PP[employer].C.AUTH [id number] [facility] [id number] Problems Condition Name Condition Details Condition Category [...] 09-25 00:00: 00 09-30 00:00 :00 No [id number] Per instruc tions Per instructio ns (route: oral) Med Classific ation: Anti-Infe ctive Agents metronidazo le 500 mg tablet 09-25 00:00: 00 09-30 00:00 :00 No [id number] Per instruc tions Per instructio ns (route: oral) Med Classific ation: Anti-Infe ctive Agents Humira(CF) Pen 40 mg/0.4 mL subcutaneou s kit 09-21 00:00: 00 09-30 00:00 :00 No [id number] Per instruc tions Per instructio ns (route: subcutaneo us) Med Classific ation: Analgesic , Anti-infl ammatory or Antipyret ic levocetiriz ine 5 mg tablet 09-21 00:00: 00 09-30 00:00 :00 No [id number] Per instruc tions EVERY DAY Per instructio ns EVERY DAY (route: oral) Med Classific ation: Respirato ry Therapy Agents tramadol 50 mg tablet 09-08 00:00: 00 09-30 00:00 :00 No [id number] Per instruc tions EVERY 8 HOURS NEEDED Per instructio ns EVERY 8 HOURS NEEDED (route: oral) Med Classific ation: Analgesic , Anti-infl ammatory or Antipyret ic albuterol sulfate HFA 90 mcg/actuati on aerosol inhaler 09-07 00:00: 00 09-30 00:00 :00 No [id number] Per instruc tions EVERY 4 TO 6 HOURS NEEDED Per instructio ns EVERY 4 TO 6 HOURS NEEDED (route: inhalation ) Med Classific ation: Respirato ry Therapy Agents simvastatin 20 mg tablet 09-07 00:00: 00 09-30 00:00 :00 No [id number] Per instruc tions EVERY Per instructio ns EVERY (route: oral) Med Classific ation: Cardiovas cular Therapy Agents methotrexat e sodium 2.5 mg tablet 09-03 00:00: 00 09-30 00:00 :00 No [id number] Unavailable Per instruc tions ONCE exactly DIRECTED Per instructio ns ONCE exactly DIRECTED (route: oral) Med Classific ation: Antineopl astics azelastine 137 mcg (0.1 %) nasal spray 09-01 00:00: 00 09-30 00:00 :00 No [id number] Per instruc tions TWICE DAILY NEEDED DIRECTED Per instructio ns TWICE DAILY NEEDED DIRECTED (route: nasal) Med Classific ation: Respirato ry Therapy Agents Horizant ER 600 mg tablet,exte nded release 08-31 00:00: 00 09-30 00:00 :00 No [id number] Unavailable Per instruc tions EVERY DAY AT 5 EVENING Per instructio ns EVERY DAY AT 5 EVENING (route: oral) Med Classific ation: Central Nervous System Agents valsartan 160 mg tablet 09-30 00:00: 00 Yes [id number] BLADDER 160 mg DAILY 160 mg DAILY (route: oral) Med Classific ation: Cardiovas cular Therapy Agents mirtazapine 15 mg disintegrat ing tablet 09-30 00:00: 00 10-12 23:59 :00 No [id number] SLEEP 15 mg BEDTIME 15 mg BEDTIME (route: oral) Med Classific ation: Central Nervous System Agents folic acid 1 mg tablet 10-06 00:00: 00 Yes [id number] SUPPLEMENT 1 mg DAILY 1 mg TEE LY (route: oral) Med Classific ation: Electroly te Balance-N utritiona l Products Horizant ER 600 mg tablet,exte nded release 10-07 00:00: 00 Yes [id number] NA 600 mg DAILY 600 mg DAILY (route: oral) Med Classific ation: Central Nervous System Agents montelukast 10 mg tablet 10-06 00:00: 00 Yes [id number] A.LERGIES 10 mg BEDTIME 10 mg BEDTIME (route: oral) Med Classific ation: Respirato ry Therapy Agents pantoprazol e 40 mg tablet,adam yed release 10-07 00:00: 00 Yes [id number] GERD 40 mg DAILY 40 mg DAILY (route: oral) Med Classific ation: Gastroint estinal Therapy Agents tramadol 50 mg tablet 10-07 00:00: 00 Yes [id number] PAIN 50 mg EVERY 6 HOURS 50 mg EVERY 6 HOURS (route: oral) Med Classific ation: Analgesic , Anti-infl ammatory or Antipyret ic lactulose 10 gram/15 mL (15 mL) oral solution 10-11 00:00: 00 Yes [id number] LIVER Per instruc tions DAILY Per instructio ns DAILY (route: oral) Med Classific ation: Gastroint estinal Therapy Agents Humira Pen 40 mg/0.8 mL subcutaneou s kit 10-08 00:00: 00 Yes [id number] FOR RA 40 mg EVERY OTHER WEEK 40 mg EVERY OTHER WEEK (route: subcutaneo us) Med Classific ation: Analgesic , Anti-infl ammatory or Antipyret ic methotrexat e sodium 2.5 mg tablet 10-15 00:00: 00 Yes [id number] RA 2.5 mg EVERY OTHER WEEK 2.5 mg EVERY OTHER WEEK (route: oral) Med Classific ation: Antineopl astics Xifaxan 550 mg tablet 10-11 00:00: 00 Yes [id number] LIVER 550 mg 2 TIMES DAILY 550 mg 2 TIMES DAILY (route: oral) Med Classific ation: Anti-Infe ctive Agents Vital Signs Vital Name Observation Time Observation Value Commen ts Temperature 2024-10-21 13:10:00.000 98 [degF] Temperature 2024-10-21 11:09:00.000 98.6 [degF] Temperature 2024-10-15 12:17:00.000 98 [degF] Temperature 2024-10-12 17:28:00.000 98 [degF] Temperature 2024-10-12 13:59:00.000 98 [degF] Temperature 2024-10-06 14:42:00.000 98.7 [degF] Temperature 2024-10-05 13:51:00.000 98.3 [degF] Temperature 2024-10-05 10:53:00.000 98 [degF] Temperature 2024-09-30 12:45:00.000 98.6 [degF] BMI (%) 2024-09-30 12:20:03.000 46 kg/m2 Height 2024-09-30 12:19:58.000 67 [in_us] Pulse 2024-10-21 13:10:00.000 84 /min Pulse 2024-10-21 11:09:00.000 74 /min Pulse 2024-10-15 12:17:00.000 78 /min Pulse 2024-10-13 14:38:00.000 82 /min Pulse 2024-10-12 17:28:00.000 79 /min Pulse 2024-10-12 13:59:00.000 82 /min Pulse 2024-10-06 14:42:00.000 92 /min Pulse 2024-10-05 13:48:00.000 74 /min Pulse 2024-10-05 10:53:00.000 76 /min Pulse 2024-09-30 12:45:00.000 86 /min O2 Saturation (%) 2024-10-21 13:10:00.000 97 % O2 Saturation (%) 2024-10-21 11:10:00.000 94 % O2 Saturation (%) 2024-10-15 12:17:00.000 97 % O2 Saturation (%) 2024-10-13 14:38:00.000 95 % O2 Saturation (%) 2024-10-12 13:59:00.000 92 % O2 Saturation (%) 2024-10-05 13:48:00.000 97 % O2 Saturation (%) 2024-10-05 10:53:00.000 96 % Respirations 2024-10-21 13:10:00.000 18 /min Respirations 2024-10-21 11:09:00.000 18 /min Respirations 2024-10-15 12:17:00.000 18 /min Respirations 2024-10-13 14:38:00.000 18 /min Respirations 2024-10-12 17:28:00.000 18 /min Respirations 2024-10-12 13:59:00.000 18 /min Respirations 2024-10-06 14:42:00.000 18 /min Respirations 2024-10-05 13:48:00.000 18 /min Respirations 2024-10-05 10:53:00.000 18 /min Respirations 2024-09-30 12:45:00.000 18 /min Weight (lbs) 2024-09-30 12:20:03.000 296 [lb_av] Systolic Blood Pressure 2024-10-21 13:10:00.000 130 mm [...] 12:45:00.000 138 mm [Hg] Diastolic Blood Pressure 2024-10-21 13:10:00.000 [...] CONSULTING PHYSICIANS RN TO OBSERVE AND ASSESS, HYDROELECTRIC STATION CHIEF/FACING END TRIMMER TO OBSERVE FOR RISK FOR FALLS AND INSTRUCT IN FALL PREVENTION, HOME SAFETY, MEDICATION MANAGEMENT, INFECTION PREVENTION, AND NUTRITION MANAGEMENT. RN/HYDROELECTRIC STATION CHIEF/FACING END TRIMMER NURSE MAY PERFORM O2 SATURATION LEVEL ON ADMISSION AND PRN FOR RN TO ASSESS/HYDROELECTRIC STATION CHIEF TO OBSERVE PATIENT, WITH NOTIFICATION TO THE PHYSICIAN IF SATURATION IS 90% IN THE ABSENCE OF MORE SPECIFIC PARAMETERS FROM THE PHYSICIAN. AGENCY MAY PERFORM A RESUMPTION OF CARE VISIT FOLLOWING ANY HOSPITAL ADMISSION. RN/HYDROELECTRIC STATION CHIEF/FACING END TRIMMER TO MONITOR CO-MORBID CONDITIONS LISTED ON THE PLAN OF CARE AND ANY NEW CONDITIONS THAT PRESENT THEMSELVES DURING THIS EPISODE TO IDENTIFY CHANGES AND INTERVENE TO MINIMIZE COMPLICATIONS. [code = RN TO OBSERVE, ASSESS, EVALUATE, AND DEVELOP AN INDIVIDUALIZED PLAN OF CARE. AGENCY MAY ACCEPT ORDERS FROM CONSULTING PHYSICIANS RN TO OBSERVE AND ASSESS, HYDROELECTRIC STATION CHIEF/FACING END TRIMMER TO OBSERVE FOR RISK FOR FALLS AND INSTRUCT IN FALL PREVENTION, HOME SAFETY, MEDICATION MANAGEMENT, INFECTION PREVENTION, AND NUTRITION MANAGEMENT. RN/HYDROELECTRIC STATION CHIEF/FACING END TRIMMER NURSE MAY PERFORM O2 SATURATION LEVEL ON ADMISSION AND PRN FOR RN TO ASSESS/HYDROELECTRIC STATION CHIEF TO OBSERVE PATIENT, WITH NOTIFICATION TO THE PHYSICIAN IF SATURATION IS 90% IN THE ABSENCE OF MORE SPECIFIC PARAMETERS FROM THE PHYSICIAN. AGENCY MAY PERFORM A RESUMPTION OF CARE VISIT FOLLOWING ANY HOSPITAL ADMISSION. RN/HYDROELECTRIC STATION CHIEF/FACING END TRIMMER TO MONITOR CO-MORBID CONDITIONS LISTED ON THE PLAN OF CARE AND ANY NEW CONDITIONS THAT PRESENT THEMSELVES DURING THIS EPISODE TO IDENTIFY CHANGES AND INTERVENE TO MINIMIZE COMPLICATIONS.] Future Scheduled Test RISK FOR H OSPITALIZATION; RN TO ASSESS/TEACH, FACING END TRIMMER/HYDROELECTRIC STATION CHIEF TO OBSERVE/TEACH PATIENT/CAREGIVER ON RISK FOR HOSPITALIZATION/EMERGENCY ROOM VISITS, TEACH SIGNS AND SYMPTOMS THAT PUT PATIENT AT RISK, WHEN TO NOTIFY NURSE/PHYSICIAN OF COMPLICATIONS/DECLINE, AND WHEN TO CALL 911. [code = RISK FOR HOSPITALIZATION; RN TO ASSESS/TEACH, FACING END TRIMMER/HYDROELECTRIC STATION CHIEF TO OBSERVE/TEACH PATIENT/CAREGIVER ON RISK FOR HOSPITALIZATION/EMERGENCY ROOM VISITS, TEACH SIGNS AND SYMPTOMS THAT PUT PATIENT AT RISK, WHEN TO NOTIFY NURSE/PHYSICIAN OF COMPLICATIONS/DECLINE, AND WHEN TO CALL 911.] Future Scheduled Test NEUROLOGIC AL SYSTEM MANAGEMENT; RN TO ASSESS AND TEACH, FACING END TRIMMER/HYDROELECTRIC STATION CHIEF TO OBSERVE AND TEACH RELATED TO ALTERED NEUROLOGICAL STATUS TO MINIMIZE COMPLICATIONS AND REDUCE HOSPITALIZATION. [code = NEUROLOGICAL SYSTEM MANAGEMENT; RN TO ASSESS AND TEACH, FACING END TRIMMER/HYDROELECTRIC STATION CHIEF TO OBSERVE AND TEACH RELATED TO ALTERED NEUROLOGICAL STATUS TO MINIMIZE COMPLICATIONS AND REDUCE HOSPITALIZATION.] Future Scheduled Test GENITOURIN ANTONINA MANAGEMENT; RN TO ASSESS AND TEACH, HYDROELECTRIC STATION CHIEF/FACING END TRIMMER TO OBSERVE AND TEACH RELATED TO ALTERED GENITOURINARY STATUS TO MINIMIZE COMPLICATIONS AND REDUCE HOSPITALIZATION. [code = GENITOURINARY MANAGEMENT; RN TO ASSESS AND TEACH, HYDROELECTRIC STATION CHIEF/FACING END TRIMMER TO OBSERVE AND TEACH RELATED TO ALTERED GENITOURINARY STATUS TO MINIMIZE COMPLICATIONS AND REDUCE HOSPITALIZATION.] Future Scheduled Test URINARY TR ACT INFECTION MANAGEMENT; RN/FACING END TRIMMER/HYDROELECTRIC STATION CHIEF TO PROVIDE SKILLED TEACHING AND SELF- CARE MANAGEMENT RELATED TO UTI TO MINIMIZE COMPLICATIONS AND REDUCE THE RISK OF HOSPITALIZATION. [code = URINARY TRACT INFECTION MANAGEMENT; RN/FACING END TRIMMER/HYDROELECTRIC STATION CHIEF TO PROVIDE SKILLED TEACHING AND SELF- CARE MANAGEMENT RELATED TO UTI TO MINIMIZE COMPLICATIONS AND REDUCE THE RISK OF HOSPITALIZATION.] Future Scheduled Test FALL REDUC TION MANAGEMENT; RN TO ASSESS AND OBSERVE, HYDROELECTRIC STATION CHIEF/FACING END TRIMMER TO OBSERVE FALL RISK FACTORS AND EDUCATE PATIENT/CAREGIVER ON STRATEGIES TO MINIMIZE THE RISK OF FALLING. [code = FALL REDUCTION MANAGEMENT; RN TO ASSESS AND OBSERVE, HYDROELECTRIC STATION CHIEF/FACING END TRIMMER TO OBSERVE FALL RISK FACTORS AND EDUCATE PATIENT/CAREGIVER ON STRATEGIES TO MINIMIZE THE RISK OF FALLING.] Future Scheduled Test PHYSICAL T HERAPIST TO EVALUATE FOR BALANCE AND STRENGTHENING [code = PHYSICAL THERAPIST TO EVALUATE FOR BALANCE AND STRENGTHENING ] Future Scheduled Test OCCUPATION AL THERAPIST TO EVALUATE FOR SAFETY IN ADLS AND IADLS [code = OCCUPATIONAL THERAPIST TO EVALUATE FOR SAFETY IN ADLS AND IADLS] Future Scheduled Test MEDICAL SO CIAL SERVICES FOR EVALUATION TO ASSESS SOCIAL AND EMOTIONAL FACTORS RELATED TO THE PATIENT'S ILLNESS, NEED FOR CARE, RESPONSE TO TREATMENT AND ADJUSTMENT TO CARE. [code = MEDICAL COSTUME CUTTER FOR EVALUATION TO ASSESS SOCIAL AND EMOTIONAL [...] TOLERANCE, BALANCE AND SAFE SELF-CARE PERFORMANCE BATHING/SHOWERING (OT/PROGRAM MANAGER TRANSPORTATION) DRESSING (OT/ETHEL) ACTIVITIES OF DAILY LIVING (OT/ETHEL) TOILET TRANSFER (OT/PROGRAM MANAGER TRANSPORTATION) BATH/SHOWER TRANSFER (OT/PROGRAM MANAGER TRANSPORTATION) ITEM RETRIEVAL AND TRANSPORTATION (OT/PROGRAM MANAGER TRANSPORTATION) ENERGY CONSERVATION/ACTIVITY DEMAND (OT/ETHEL) OT/ETHEL TO MONITOR PATIENT WITH STABLE DEPRESSION ON SIGNS AND SYMPTOMS OF WORSENING DEPRESSION AND AVAILABLE RESOURCES INCLUDING [facility] SUICIDE CRISIS [employer]. OT/ETHEL MAY EDUCATE ON PAIN MANAGEMENT CLINICALLY [...] TOLERANCE, BALANCE AND SAFE SELF-CARE PERFORMANCE BATHING/SHOWERING (OT/PROGRAM MANAGER TRANSPORTATION) DRESSING (OT/PROGRAM MANAGER TRANSPORTATION) ACTIVITIES OF DAILY LIVING (OT/ETHEL) TOILET TRANSFER (OT/PROGRAM MANAGER TRANSPORTATION) BATH/SHOWER TRANSFER (OT/ETHEL) ITEM RETRIEVAL AND TRANSPORTATION (OT/ETHEL) ENERGY CONSERVATION/ACTIVITY DEMAND (OT/ETHEL) OT/ETHEL TO MONITOR PATIENT WITH STABLE DEPRESSION ON SIGNS AND SYMPTOMS OF WORSENING DEPRESSION AND AVAILABLE RESOURCES INCLUDING [facility] SUICIDE CRISIS [facility]. OT/ETHEL MAY EDUCATE ON PAIN MANAGEMENT CLINICALLY [...] TO EVALUATE, OBSERVE / ASSESS, AND MONITOR, ACCESS SPEC TO OBSERVE AND MONITOR, PROVIDE SKILLED THERAPEUTIC INTERVENTION, ACTIVITY, EDUCATION, AND TRAINING TO ADDRESS; PT/ACCESS SPEC TO PROVIDE GAIT TRAINING FOR IMPROVED MOBILITY AND /OR TO NORMALIZE GAIT PATTERN NEUROMUSCULAR RE-EDUCATION / BALANCE / POSTURAL CONTROL (PT) THERAPEUTIC EXERCISES AND ESTABLISHING A HOME EXERCISE PROGRAM (PT/ACCESS SPEC) SIT TO/FROM STAND TRANSFERS (PT/ACCESS SPEC) PT / ACCESS SPEC TO MONITOR AND EDUCATE ON OXYGEN SATURATION DURING ADLS/IADLS, NOTIFY PHYSICIAN AND/OR THE RN CLINICAL MANAGER MARKETING FOR PHYSICIAN NOTIFICATION AND IF O2 SATS BELOW PHYSICIAN ORDERED PARAMETERS AFTER 10 MIN OF REST PT / ACCESS SPEC TO INSTRUCT PATIENT/CAREGIVER ON RISK FOR HOSPITALIZATION/EMERGENCY ROOM VISITS, TEACH SIGNS AND SYMPTOMS THAT PUT PATIENT AT RISK, WHEN TO NOTIFY NURSE/PHYSICIAN OF COMPLICATIONS/DECLINE, AND WHEN TO CALL 911. PT/ACCESS SPEC TO IDENTIFY FALL RISK FACTORS; EDUCATE THE PATIENT/CAREGIVER ON WAYS TO REDUCE FALL RISK FACTORS AND ESTABLISH HOME EXERCISE PROGRAM TO MINIMIZE FALL RISK. MAY TEACH THE PATIENT FLOOR RECOVERY WHEN CLINICALLY APPROPRIATE [code = AGENCY MAY PERFORM A RESUMPTION OF CARE VISIT FOLLOWING ANY HOSPITAL ADMISSION. PT TO EVALUATE, OBSERVE / ASSESS, AND MONITOR, ACCESS SPEC TO OBSERVE AND MONITOR, PROVIDE SKILLED THERAPEUTIC INTERVENTION, ACTIVITY, EDUCATION, AND TRAINING TO ADDRESS; PT/ACCESS SPEC TO PROVIDE GAIT TRAINING FOR IMPROVED MOBILITY AND /OR TO NORMALIZE GAIT PATTERN NEUROMUSCULAR RE-EDUCATION / BALANCE / POSTURAL CONTROL (PT) THERAPEUTIC EXERCISES AND ESTABLISHING A HOME EXERCISE PROGRAM (PT/ACCESS SPEC) SIT TO/FROM STAND TRANSFERS (PT/ACCESS SPEC) PT / ACCESS SPEC TO MONITOR AND EDUCATE ON OXYGEN SATURATION DURING ADLS/IADLS, NOTIFY PHYSICIAN AND/OR THE RN CLINICAL MANAGER MARKETING FOR PHYSICIAN NOTIFICATION AND IF O2 SATS BELOW PHYSICIAN ORDERED PARAMETERS AFTER 10 MIN OF REST PT / ACCESS SPEC TO INSTRUCT PATIENT/CAREGIVER ON RISK FOR HOSPITALIZATION/EMERGENCY ROOM VISITS, TEACH SIGNS AND SYMPTOMS THAT PUT PATIENT AT RISK, WHEN TO NOTIFY NURSE/PHYSICIAN OF COMPLICATIONS/DECLINE, AND WHEN TO CALL 911. PT/ACCESS SPEC TO IDENTIFY FALL RISK FACTORS; EDUCATE THE PATIENT/CAREGIVER ON WAYS TO REDUCE FALL RISK FACTORS AND ESTABLISH HOME EXERCISE PROGRAM TO MINIMIZE FALL RISK. MAY TEACH THE PATIENT FLOOR RECOVERY WHEN CLINICALLY APPROPRIATE] Future Scheduled Test DRYING RACK CHANGER EVALUA TION PERFORMED. NO ADDITIONAL VISITS REQUIRED. [code = DRYING RACK CHANGER EVALUATION PERFORMED. NO ADDITIONAL VISITS REQUIRED.] Goal Patient Goal - TO GET STRONG ER Goal Provider Goal - A PLAN OF CARE WILL BE ESTABLISHED THAT MEETS THE PATIENTS NEEDS. PATIENT WILL DEMONSTRATE OXYGEN SATURATION WITHIN NORMAL LIMITS OR PATIENTS OPTIMAL LEVEL ESTABLISHED BY THE PHYSICIAN THROUGHOUT [...] END OF EPISODE. Goal Provider Goal - Encounters Start Date/Time End Date/Time Encounter Type Admission Type Attending [facility] Care Department Encounter ID Discharge Date Discharge Status Discharge Condition Discharge Reason Percent Goals Met 2024-09-30 00:00:00 2024-11-28 00:00:00 Outpatient NEW ADMISSION ANKITA MEDEROS [facility] [id number] 33.33
== END 2024-10-20 23:59 | disposition home or self-care (01) ==
LOC: LAB.DROPOF 10-22 09:59
PROVIDERS: PCP Family Medicine; Visit Provider Family Medicine
DX: I10 Essential (primary) hypertension (principal); M06.9 Rheumatoid arthritis, unspecified
CPT/HCPCS: 80053; 85025

== ENCOUNTER 2024-11-11 09:41 | Outpatient (CLI) | payer MEDICARE, MEDICAID, SELFPAY ==
--- OUTSIDE RECORDS SUMMARY | 2024-09-20 13:30 | XMS_ITS | Encounter Summary ---
Author Organization [facility] Address [address] [place] [address] Care Team Providers Care Lactation Specialist Name Role Phone Dru Giles MD Primary Care Provider [phone] Reason for Visit * Reason Comments [facility] Follow-up Encounter Details Date Type Department Care Team (Late st Contact Info) Description 09/20/2024 1:30 PM EDT Office Visit [facility] [address] [place] [address] Jesus Tanner MD [address] [place] [address] Inflammatory polyarthritis (CMS/HCC); High risk medication use Social History Tobacco Use Types Packs/Day Years Used Date Smoking Tobacco: Never Passive Smoke Exposure: Never Smokeless Tobacco: Never Alcohol Use Standard Drinks/Week Comments Not Currently 0 (1 standard drink = 0.6 oz pur e alcohol) PHQ-2 Answer Date Recorded Patient Health Questionnaire-2 Score 4 09/20/2024 PHQ-9 Answer Date Recorded Patient Health Questionnaire-9 Score 20 09/20/2024 AUDIT-C Answer Date Recorded Q1: How often do you have a drink containing alcohol? Never 09/20/2024 Q2: How many drinks containi ng alcohol do you have on a typical day when you are drinking? Patient does not drink Q3: How often do you have si x or more drinks on one occasion? Never 09/20/2024 PHQ-2A Answer Date Recorded Patient Health Questionnaire-2 Score 0 01/23/2023 Comments No Sex and Gender Information Value Date Recorded Sex Assigned at Not on file Legal Sex Female 8:47 PM EDT Gender Identity Not on file Sexual Orientation Not on file documented as of this encounter Last Filed Vital Signs Vital Sign Reading Time Taken Comments Blood Pressure 115/55 09/20/2024 1:04 PM EDT Pulse 70 09/20/2024 1:04 PM EDT Temperature 36.6 C (97.8 F) 09/20/2024 1:04 PM EDT Respiratory Rate - - Oxygen Saturation 95% 09/20/2024 1:04 PM EDT Inhaled Oxygen Concentration - - Weight 136 kg (299 lb 13.2 oz) 09/20/2024 1:04 P M EDT Height 170.2 cm (5' 7 ) 09/20/2024 1:04 PM EDT Body Mass Index 46.96 09/20/2024 1:04 PM EDT documented in this encounter Functional Status * AUDIT-C Score Answer Date of Assessment Author 0 09/20/2024 1:07 PM EDT Yara Mora * Question Answer Date of Assessment Author Q1: How often do you have a drink containing alcohol? Never 09/20/2024 1:07 PM EDT Rachel Covarrubias Q2: How many drinks containing alcohol do you have on a typical day when you are drinking? Patient does not drink 09/20/2024 1:07 PM EDT Yara Covarrubias Q3: How often do you have six or more drinks on one occasion? Never 09/20/2024 1:07 PM EDT Rachel Covarrubias R * Over the past 2 weeks, how often have you been bothered by any of the following problems? Question Answer Date of Assessment Author Little interest or pleasure in doing things More than half the days 09/20/2024 1:12 PM Yara Mcintosh Feeling down, depressed, or hopeless More than half the days 09/20/2024 1:12 PM JABARIT Yara Covarrubias Patient Health Questionnaire-2 Score 4 09/20/2024 1:12 PM EDT Aleksandra Covarrubias * Question Answer Date of Assessment Author Trouble falling or staying asleep, or sleeping too much Nearly every day 09/20/2024 1:12 PM Rachel Mcintosh Feeling tired or having little energy Nearly every day 09/20/2024 1:12 PM Rachel Mcintosh Poor appetite or overeating Nearly every day 09/20/2024 1:12 PM Rachel Mcintosh Feeling bad about yourself - or that you are a failure or have let yourself or your family down Several days 09/20/2024 1:12 PM Rachel Mcintosh Trouble concentrating on things, such as reading the newspaper or watching television Nearly every day 09/20/2024 1:12 PM Rachel Mcintosh Moving or speaking so slowly that other people could have noticed? Or the opposite - being so fidgety or restless that you have been moving around a lot more than usual. Nearly every day 09/20/2024 1:12 PM Rachel Mcintosh Thoughts that you would be better off or hurting yourself in some way Not at all 09/20/2024 1:12 PM Martin Mcintosh R Patient Health Questionnaire-9 Score 20 09/20/2024 1:12 PM Aleksandra Mcintosh * If you checked off any problems on this questionnaire so far, Question Answer Date of Assessment Author How difficult have these problems made it for you to do your work, take care of things at home, or get along with other people? Somewhat difficult 09/20/2024 1:12 PM Rachel Mcintosh * How difficult have these problems made it for you to do your work, take care of things at home, or get along with other people? Answer Date of Assessment Author Somewhat difficult 09/20/2024 1:12 PM Yara Hayden documented as of this encounter Miscellaneous Notes * Progress Notes - Kameron Mccormack DO - 09/20/2024 1:30 PM EDT Rheumatology follow up office visit note Chief Complaint Patient presents with Seronegative rheumatoid arthritis of multiple sites Follow-up HPI Marizol Bishop is a 59 y.o. 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 Today: Patient reports that she is not doing well, since July 2024 she started to have pain in most of her joints, her knee joints are hurting the most. She also has pain in her bilateral wrists, bilateral hands, ankles and feet. Denies any recent infections. Patient is currently taking 50 mg of methotrexate every week along with folic acid 1 mg daily. Summary of the visit in June 2024: Patient reports that her arthritis is doing fine, she takes 15 mg of methotrexate every week along with folic acid 1 mg daily. She reports that her fevers pattern has changed. She has noticed that if she does not go out of the house she does not have a fever but if she goes out for anything in his spent some time outside then she will develop a fever after coming home. She has established care with the Infectious Disease, and she is under evaluation for her recurrent fevers. Summary of the visit in April 2024: In this office visit patient reports that she is doing fine in terms of her arthritis taking methotrexate and folic acid. But she reports having fever for almost last 3 months every night, her fever can go up to 102 degree F. she was evaluated emergency room and was excluded of having any infections. Summary of the visit in February 2024: Patient does not report any flares. Patient has not taking any gout medication in last 18 months and she does not report any flares. 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 Patient's liver enzymes were slightly elevated in the past because of the fatty liver and also concomitant use of methotrexate and Protonix. Liver enzymes have been normalized since November 2023. Patient reports that she had the respiratory infection recently and she is currently on antibiotics and steroids,she is holding methotrexate use for now. Summary of the visit in October 2022: Patient did well on methotrexate for her arthritis, she was not taking any gout medications for 2 months without any flares. Summary of visit visit 05/22/2022: Compliant with Methotrexate 20mg per week along with folic acid daily. Also taking colchicine once a day (her prescription was PRN, using 4-5 times a month). Compliant with febuxostat 80 mg daily. Not currently on steroids. Diarrhea has resolved. Has GERD treated with PPI. No dyspnea, eye inflammation, patchy alopecia, chest pain, pleurisy, dysuria, hematuria. No vision changes, temporary vision loss, scalp tenderness. She has a first cousin from mother side with ulcerative colitis who has had part of her bowel removed. Had all 3 COVID vaccines. Had COVID infection 12/2019. History of disease: -2014: Started having pain and swelling in left hand and left shoulder. -since then, she has had on and off pain in joints, asymmetric, can involve MCP, PIP, DIP, wrists, elbows, shoulders, occasionally with swelling and heat. She has never had any attack on her toes. -03/2020: Started having significant right knee pain, which became persistent. -09/08/2020: Saw PCP for joint pain, uric acid was checked, found to be high, no value available, diagnosis of gout was made and she was started on allopurinol only. -09/18/2020: Had worsening of joint pain with significant swelling of her right knee, both ankles, allopurinol was stopped and febuxostat was started along with a prednisone taper from 40 mg. -09/26/2020 was doing well until taper of prednisone was stopped. -04/04-10/19: was admitted to with polyarthralgia and polyarthritis involving multiple joints of hands and knees. Rheumatology was consulted, on exam patient had tophi, but in needle tap did not reveal any urate crystals. Dual energy CT was done to confirm, was found to have gout/CPPD per imaging full patient was started on colchicine, however she developed diarrhea 1st day. She was therefore started on prednisone 40 mg with a taper by 10 mg weekly, discharged home to follow-up outpatient. Shewas also started on febuxostat 40 mg daily. She was on hydrochlorothiazide since her 20s for blood pressure, and it was suggested to change this medication to a different antihypertensive upon discharge. -11/02/2020: Seen in rheum clinic for hospital follow-up. Restarted febuxostat 40 mg daily, increased prednisone to 15 mg daily, uric acid 7.5, will be repeated in 2 weeks. KAMERON 1:640 with negative sub serologies, a diagnosis of lupus is still possible but not certain. Hydroxychloroquine could not be used due to patient's underlying macular degeneration. -11/14/20: called the office reporting significant flare. - 11/15/2020: Seen at [facility] for acute visit, considered to be gout flare in, started prednisone taper and colchicine, continue febuxostat 40 mg daily. -patient developed thrush, possibly due to prednisone, was started on nystatin swish and swallow. -12/14/2020: Patient contacted regarding recurrence of pain and swelling in left MCPs. She was againstarted on a prednisone taper. Febuxostat increased to 80 mg daily. -01/06/2021: Patient reported no response to any of the above medication changes. She was started on methotrexate 20 mg/wk, folic acid, repeat prednisone taper, continue febuxostat 80 mg daily. Started on Bactrim while on prednisone more than 20 mg daily. - 03/16/2021: Significant improvement since 1 mo after starting Methotrexate. Diarrhea hx, chronic oral ulcers, and polyarthritis were concerning for IBD, so referred to GI. Colchicine changed to PRN. Prednisone taper down to 5 mg. Continue febuxostat 80 mg/d. - 05/22/2022: found to have fatty liver with slight elevation of ALT/AST, ALT normalized later on. AST in 30s and 40s. Referred hepatology, appointment in June 2022. Review of system: 14 point ROS was done, negative other than mentioned in HPI. 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) 12+ years 05/10/2020, 06/07/2020, 01/03/2021 Moderna COVID-19 Vaccine Bivalent 6months+ 12/12/2021 Pneumococcal Polysaccharide PPV23 02/19/2022 Zoster, Recombinant 10/24/2022, 05/08/2023 Home medications: Current Outpatient Medications Medication Instructions azelastine (Astelin) 0.1 % nasal spray Breo Ellipta 200-25 MCG/ACT aerosol powder Daily cetirizine (ZyrTEC) 10 MG tablet desvenlafaxine (PRISTIQ) 100 mg, Daily desvenlafaxine succinate er (PRISTIQ) 25 mg, Daily EPINEPHrine (AUVI-Q) 0.15 mg/0.15 mL IJ solution auto-injector injection 0.15 Syringes, As needed ergocalciferol (VITAMIN D-2) 50,000 Units, Weekly febuxostat (ULORIC) 80 mg, Oral, Nightly ferrous sulfate 325 (65 Fe) MG EC tablet TAKE 1 TABLET BY MOUTH 1 (ONE) TIME EACH DAY WITH BREAKFAST. DO NOT CRUSH, CHEW, OR SPLIT. fluticasone (Flonase) 50 MCG/ACT nasal spray 1 spray, Daily folic acid (FOLVITE) 1 mg, Oral, Daily, As long as you are on methotrexate Glucagon, rDNA, (Glucagon Emergency) 1 MG kit Horizant 600 MG tablet controlled-release ER tablet ketotifen (Zaditor) 0.035 % ophthalmic solution lamoTRIgine (LaMICtal) 25 MG tablet lamoTRIgine (LAMICTAL) 100 mg, Daily levocetirizine (Xyzal) 5 MG tablet levoFLOXacin (LEVAQUIN) 500 mg linaCLOtide (LINZESS) 145 mcg, Oral, Daily before breakfast meclizine (ANTIVERT) 25 mg methotrexate 10 mg, Oral, Weekly, Follow directions carefully, and ask to explain any part you do not understand. Take exactly as directed. metoclopramide (REGLAN) 5 mg, Every morning metoprolol tartrate (LOPRESSOR) 50 mg, 2 times daily mirtazapine (Remeron) 15 MG tablet take 1 and 1/2 tablet by mouth at bedtime montelukast (SINGULAIR) 10 mg, Nightly Multiple Vitamins-Minerals (EQ One Daily [employer]) tablet 1 tablet, Daily ondansetron (ZOFRAN) 4 mg pantoprazole (PROTONIX) 40 mg, Oral, Daily before breakfast, Do not crush, chew, or split. predniSONE (Deltasone) 20 MG tablet TAKE ONE TABLET BY MOUTH TWICE DAILY FOR 5 DAYS, THEN TAKE ONE TABLET ONCE DAILY FOR 5 DAYS -- FINISH ALL MEDICINE -- --TAKE WITH FOOD-- ProAir HFA 108 (90 Base) MCG/ACT inhaler As needed simvastatin (ZOCOR) 20 mg, Nightly traMADol (Ultram) 50 MG tablet Nightly PRN triamcinolone (Kenalog) 0.1 % cream apply a SMALL AMOUNT topically TO THE affected area(s) TWICE DAILY FOR ITCHING OR RASH avoid USE ON face, groin, OR arm pits triamcinolone (Kenalog) 0.1 % oral paste As needed valsartan (DIOVAN) 320 mg, Every morning Zegalogue 0.6 MG/0.6ML solution auto-injector USE DIRECTED NEEDED with epipen FOR anaphylactic reactions Vitals: Visit Vitals BP 115/55 (BP Location: Right arm, Patient Position: Sitting) Pulse 70 Temp 36.6 ??C (97.8 ??F) Ht 1.702 m (5' 7 ) Wt 136 kg (299 lb 13.2 oz) SpO2 95% BMI 46.96 kg/m?? OB Status Postmenopausal Smoking Status Never BSA 2.54 m?? Physical Exam Vitals reviewed. Constitutional: Appearance: Normal appearance. Comments: Walks with a cane HENT: Mouth/Throat: Pharynx: No oropharyngeal exudate or posterior oropharyngeal erythema. Eyes: Conjunctiva/sclera: Conjunctivae normal. Pupils: Pupils are equal, round, and reactive to light. Cardiovascular: Rate and Rhythm: Normal rate. Pulmonary: Effort: Pulmonary effort is normal. Musculoskeletal: General: Normal range of motion. Comments: Tenderness noted in bilateral wrists joints, multiple MCPs, PIP is and bilateral knee andankle joints. Skin: Capillary Refill: Capillary refill takes less than 2 seconds. Comments: Well-healed scar over left forearm, from accident in 1990s Neurological: Mental Status: She is alert. Mental status is at baseline. Psychiatric: Mood and Affect: Mood normal. There is currently no information documented on the homunculus. Go to the Rheumatology activity andcomplete the homunculus joint exam. Joint Exam 09/20/2024 No joint exam has been documented for this visit CDAI: -- VALE-28 (CRP): -- VALE-28 (ESR): -- Results: Appointment on 08/23/2024 Component Date Value Alpha Fetoprotein, Serum 08/23/2024 10.5 (H) Prothrombin Time 08/23/2024 17.7 (H) INR 08/23/2024 1.4 (H) WBC Count 08/23/2024 6.90 RBC Count 08/23/2024 3.25 (L) HGB 08/23/2024 9.6 (L) HCT 08/23/2024 31.5 (L) Platelet Count 08/23/2024 245 MCV 08/23/2024 97 MCH 08/23/2024 29.5 MCHC 08/23/2024 30.5 (L) RDW 08/23/2024 16.9 (H) MPV 08/23/2024 10.4 nRBC 08/23/2024 0.0 Differential Type 08/23/2024 Automated Neutrophils % 08/23/2024 68 Lymphocytes % 08/23/2024 20 Monocytes % 08/23/2024 4 Eosinophils % 08/23/2024 6 Basophils % 08/23/2024 2 Immature Granulocytes % 08/23/2024 0 Neutrophils Absolute 08/23/2024 4.76 Lymphocytes Absolute 08/23/2024 1.35 Monocytes Absolute 08/23/2024 0.25 (L) Eosinophils Absolute 08/23/2024 0.41 Basophils Absolute 08/23/2024 0.11 (H) Immature Granulocytes Ab* 08/23/2024 0.02 Glucose, Plasma 08/23/2024 132 (H) BUN, Plasma 08/23/2024 13 Creatinine, Plasma 08/23/2024 0.74 BUN/Creatinine Ratio 08/23/2024 18 Sodium, Plasma 08/23/2024 143 Potassium, Plasma 08/23/2024 3.8 Chloride, Plasma 08/23/2024 108 (H) CO2, Plasma 08/23/2024 22 Anion Gap 08/23/2024 13 Total Calcium, Plasma 08/23/2024 8.8 (L) Total Protein 08/23/2024 6.8 Albumin, Plasma 08/23/2024 3.5 AST, Plasma 08/23/2024 53 (H) ALT, Plasma 08/23/2024 31 Alkaline Phosphatase, Pl* 08/23/2024 222 (H) Total Bilirubin, Plasma 08/23/2024 1.0 eGFRcr 08/23/2024 93.3 CRP, Plasma 08/23/2024 7.4 Sedimentation Rate 08/23/2024 43 (H) Ferritin, Serum 08/23/2024 456 (H) Vitamin B12, Serum 08/23/2024 762 Iron, Plasma 08/23/2024 43 Transferrin, Plasma 08/23/2024 187 (L) Total Iron Binding [place]* 08/23/2024 234 (L) Transferrin Saturation 08/23/2024 18 Folate, Serum 08/23/2024 >20.0 Currently available Rheumatologic testing values noted below: Lab Results Component Value Date SEDRATE 43 (H) 08/23/2024 RF 18 (H) 10/02/2020 KAMERON Detected (H) 03/28/2022 ANATITER 1:160 (A) 03/28/2022 CRP 7.4 08/23/2024 CCPIGG <5.0 10/02/2020 Lab Results Component Value Date ALDOLASE 4.7 03/30/2021 LUISA 18 10/03/2020 SCL70 0 10/03/2020 C3 163 08/10/2021 C4 36 08/10/2021 Assessment Assessment/Plan Marizol Bishop is a 59 y.o. 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 She has not taking any gout medication including febuxostat or colchicine in last 24 months and does not report any flares. In the past due to slightly elevated liver enzymes continuation of methotrexate was in question butlately her liver enzymes have improved with decreased dose of methotrexate and decreased dose of Protonix. Patient also follows with hepatology. We will continue to monitor closely. Patient would like to continue methotrexate as she reports the best results with the use of methotrexate. Patient understand the risk of liver toxicity in the presence of fatty liver, and concomitant use of Protonix and methotrexate. Today Patient's diseases not stable on methotrexate. Hydroxychloroquine is relatively contraindicated given macular degeneration. She also has slight elevation of transaminases, because of which we would not be able to use sulfasalazine. We will start patient on Humira in combination with methotrexate. Dose of methotrexate will be reduced from 15 mg to 10 mg each week. Continue folic acid. Risk of infection significantly increases with the use of biologics and methotrexate. Patient verbalized understanding It was discussed with the patient to stop taking methotrexate and Humira in case of any infection and seek medical attention. Patient verbalized understanding. Recurrent fevers: Initially having fever for almost last 3 months every night, her fever can go up to 102 degree F. Sed rate and CRP significantly elevated Later on her fever pattern has changed, she reports having fevers usually when she goes outside thehouse. If she remains since arthralgias usually she does not develop any fever Seen by Infectious Disease, further workup going on. Ferritin levels are not significantly elevated, sed rate and CRP also improved later on. Gastroesophageal reflux disease, unspecified whether esophagitis present - continue Protonix as needed ??Polyarticular gout Patient has not used any of her anti gout medications for last 2 years. She is recommended to report any symptoms or flares. Patient verbalized understanding. High risk medication use QuantiFERON gold and hepatitis B and C negative from 2024 Protonix can increase the levels of methotrexate by decreasing renal excretion, it was discussed with the patient. Patient verbalized understanding. Patient reports that her symptoms are well controlled and she is using Protonix only on needed basis. Therapeutic drug monitoring On methotrexate, will check CBC and CMP every 3 months Positive KAMERON (antinuclear antibody) Does not meet criteria for lupus. Elevated liver enzymes/transaminitis AST 53, upper limit is 35. Methotrexate already decreased from 15 mg every week to 10 mg. Follow up in about 3 months (around 12/21/2024). Diagnosis Plan 1. Inflammatory polyarthritis (CMS/HCC) methotrexate 2.5 MG tablet folic acid (Folvite) 1 MG tablet CBC and differential Comprehensive metabolic panel Sedimentation Rate, Automated C-reactive protein 2. High risk medication use folic acid (Folvite) 1 MG tablet Counseling: diagnosis, lab results, treatment options, follow up plan and return instructions Information regarding activities, treatments, and follow-up recommendations were provided to the patient/family member(s) present today who have shown recognition and demonstration of understanding of this information. Note to patient: The Century Cures Act makes medical notes like these available to patients inthe interest of transparency. However, be advised this is a medical document. It is intended as peer to peer communication. It is written in medical language and may contain abbreviations or verbiagethat are unfamiliar. It may appear blunt or direct. Medical documents are intended to carry relevant information, facts as evident, and the clinical opinion of the medical professional. Parts of this note were dictated using [employer] voice recognition software. As a result, errors may occur. When identified, these surgery technician errors are corrected, but while every attempt is made to prevent/correct these, errors may still exist. The patient was counseled about diagnostic results, instruction for management, risk factors reduction, prognosis, compliance with visits and treatment, risks and benefits of treatments options. Prior notes (by external physicians) and results were reviewed by me with independent interpretation of labs and imaging. My note will be sent to PCP and other consulting physicians. Jesus Tanner MD Secondary Art Teacher Division of Rheumatology Department of Internal Medicine [facility] Electronically Signed by: Jesus Tanner MD - 09/20/2024 - 2:36 PM * Progress Notes - Jesus Tanner MD - 09/20/2024 1:30 PM EDT Rheumatology follow up office visit note Chief Complaint Patient presents with Seronegative rheumatoid arthritis of multiple sites Follow-up HPI Marizol Bishop is a 59 y.o. 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 Today: Patient reports that she is not doing well, since July 2024 she started to have pain in most of her joints, her knee joints are hurting the most. She also has pain in her bilateral wrists, bilateral hands, ankles and feet. Denies any recent infections. Patient is currently taking 50 mg of methotrexate every week along with folic acid 1 mg daily. Summary of the visit in June 2024: Patient reports that her arthritis is doing fine, she takes 15 mg of methotrexate every week along with folic acid 1 mg daily. She reports that her fevers pattern has changed. She has noticed that if she does not go out of the house she does not have a fever but if she goes out for anything in his spent some time outside then she will develop a fever after coming home. She has established care with the Infectious Disease, and she is under evaluation for her recurrent fevers. Summary of the visit in April 2024: In this office visit patient reports that she is doing fine in terms of her arthritis taking methotrexate and folic acid. But she reports having fever for almost last 3 months every night, her fever can go up to 102 degree F. she was evaluated emergency room and was excluded of having any infections. Summary of the visit in February 2024: Patient does not report any flares. Patient has not taking any gout medication in last 18 months and she does not report any flares. 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 Patient's liver enzymes were slightly elevated in the past because of the fatty liver and also concomitant use of methotrexate and Protonix. Liver enzymes have been normalized since November 2023. Patient reports that she had the respiratory infection recently and she is currently on antibiotics and steroids,she is holding methotrexate use for now. Summary of the visit in October 2022: Patient did well on methotrexate for her arthritis, she was not taking any gout medications for 2 months without any flares. Summary of visit visit 05/22/2022: Compliant with Methotrexate 20mg per week along with folic acid daily. Also taking colchicine once a day (her prescription was PRN, using 4-5 times a month). Compliant with febuxostat 80 mg daily. Not currently on steroids. Diarrhea has resolved. Has GERD treated with PPI. No dyspnea, eye inflammation, patchy alopecia, chest pain, pleurisy, dysuria, hematuria. No vision changes, temporary vision loss, scalp tenderness. She has a first cousin from mother side with ulcerative colitis who has had part of her bowel removed. Had all 3 COVID vaccines. Had COVID infection 12/2019. History of disease: -2014: Started having pain and swelling in left hand and left shoulder. -since then, she has had on and off pain in joints, asymmetric, can involve MCP, PIP, DIP, wrists, elbows, shoulders, occasionally with swelling and heat. She has never had any attack on her toes. -03/2020: Started having significant right knee pain, which became persistent. -09/08/2020: Saw PCP for joint pain, uric acid was checked, found to be high, no value available, diagnosis of gout was made and she was started on allopurinol only. -09/18/2020: Had worsening of joint pain with significant swelling of her right knee, both ankles, allopurinol was stopped and febuxostat was started along with a prednisone taper from 40 mg. -09/26/2020 was doing well until taper of prednisone was stopped. -04/04-10/19: was admitted to with polyarthralgia and polyarthritis involving multiple joints of hands and knees. Rheumatology was consulted, on exam patient had tophi, but in needle tap did not reveal any urate crystals. Dual energy CT was done to confirm, was found to have gout/CPPD per imaging full patient was started on colchicine, however she developed diarrhea 1st day. She was therefore started on prednisone 40 mg with a taper by 10 mg weekly, discharged home to follow-up outpatient. Shewas also started on febuxostat 40 mg daily. She was on hydrochlorothiazide since her 20s for blood pressure, and it was suggested to change this medication to a different antihypertensive upon discharge. -11/02/2020: Seen in rheum clinic for hospital follow-up. Restarted febuxostat 40 mg daily, increased prednisone to 15 mg daily, uric acid 7.5, will be repeated in 2 weeks. KAMERON 1:640 with negative sub serologies, a diagnosis of lupus is still possible but not certain. Hydroxychloroquine could not be used due to patient's underlying macular degeneration. -11/14/20: called the office reporting significant flare. - 11/15/2020: Seen at Rheumatology for acute visit, considered to be gout flare in, started prednisone taper and colchicine, continue febuxostat 40 mg daily. -patient developed thrush, possibly due to prednisone, was started on nystatin swish and swallow. -12/14/2020: Patient contacted regarding recurrence of pain and swelling in left MCPs. She was againstarted on a prednisone taper. Febuxostat increased to 80 mg daily. -01/06/2021: Patient reported no response to any of the above medication changes. She was started on methotrexate 20 mg/wk, folic acid, repeat prednisone taper, continue febuxostat 80 mg daily. Started on Bactrim while on prednisone more than 20 mg daily. - 03/16/2021: Significant improvement since 1 mo after starting Methotrexate. Diarrhea hx, chronic oral ulcers, and polyarthritis were concerning for IBD, so referred to GI. Colchicine changed to PRN. Prednisone taper down to 5 mg. Continue febuxostat 80 mg/d. - 05/22/2022: found to have fatty liver with slight elevation of ALT/AST, ALT normalized later on. AST in 30s and 40s. Referred hepatology, appointment in June 2022. Review of system: 14 point ROS was done, negative other than mentioned in HPI. 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) 12+ years 05/10/2020, 06/07/2020, 01/03/2021 Moderna COVID-19 Vaccine Bivalent 6months+ 12/12/2021 Pneumococcal Polysaccharide PPV23 02/19/2022 Zoster, Recombinant 10/24/2022, 05/08/2023 Home medications: Current Outpatient Medications Medication Instructions azelastine (Astelin) 0.1 % nasal spray Breo Ellipta 200-25 MCG/ACT aerosol powder Daily cetirizine (ZyrTEC) 10 MG tablet desvenlafaxine (PRISTIQ) 100 mg, Daily desvenlafaxine succinate er (PRISTIQ) 25 mg, Daily EPINEPHrine (AUVI-Q) 0.15 mg/0.15 mL IJ solution auto-injector injection 0.15 Syringes, As needed ergocalciferol (VITAMIN D-2) 50,000 Units, Weekly febuxostat (ULORIC) 80 mg, Oral, Nightly ferrous sulfate 325 (65 Fe) MG EC tablet TAKE 1 TABLET BY MOUTH 1 (ONE) TIME EACH DAY WITH BREAKFAST. DO NOT CRUSH, CHEW, OR SPLIT. fluticasone (Flonase) 50 MCG/ACT nasal spray 1 spray, Daily folic acid (FOLVITE) 1 mg, Oral, Daily, As long as you are on methotrexate Glucagon, rDNA, (Glucagon Emergency) 1 MG kit Horizant 600 MG tablet controlled-release ER tablet ketotifen (Zaditor) 0.035 % ophthalmic solution lamoTRIgine (LaMICtal) 25 MG tablet lamoTRIgine (LAMICTAL) 100 mg, Daily levocetirizine (Xyzal) 5 MG tablet levoFLOXacin (LEVAQUIN) 500 mg linaCLOtide (LINZESS) 145 mcg, Oral, Daily before breakfast meclizine (ANTIVERT) 25 mg methotrexate 10 mg, Oral, Weekly, Follow directions carefully, and ask to explain any part you do not understand. Take exactly as directed. metoclopramide (REGLAN) 5 mg, Every morning metoprolol tartrate (LOPRESSOR) 50 mg, 2 times daily mirtazapine (Remeron) 15 MG tablet take 1 and 1/2 tablet by mouth at bedtime montelukast (SINGULAIR) 10 mg, Nightly Multiple Vitamins-Minerals (EQ One Daily [employer]) tablet 1 tablet, Daily ondansetron (ZOFRAN) 4 mg pantoprazole (PROTONIX) 40 mg, Oral, Daily before breakfast, Do not crush, chew, or split. predniSONE (Deltasone) 20 MG tablet TAKE ONE TABLET BY MOUTH TWICE DAILY FOR 5 DAYS, THEN TAKE ONE TABLET ONCE DAILY FOR 5 DAYS -- FINISH ALL MEDICINE -- --TAKE WITH FOOD-- ProAir HFA 108 (90 Base) MCG/ACT inhaler As needed simvastatin (ZOCOR) 20 mg, Nightly traMADol (Ultram) 50 MG tablet Nightly PRN triamcinolone (Kenalog) 0.1 % cream apply a SMALL AMOUNT topically TO THE affected area(s) TWICE DAILY FOR ITCHING OR RASH avoid USE ON face, groin, OR arm pits triamcinolone (Kenalog) 0.1 % oral paste As needed valsartan (DIOVAN) 320 mg, Every morning [place]ogue 0.6 MG/0.6ML solution auto-injector USE DIRECTED NEEDED with epipen FOR anaphylactic reactions Vitals: Visit Vitals BP 115/55 (BP Location: Right arm, Patient Position: Sitting) Pulse 70 Temp 36.6 ??C (97.8 ??F) Ht 1.702 m (5' 7 ) Wt 136 kg (299 lb 13.2 oz) SpO2 95% BMI 46.96 kg/m?? OB Status Postmenopausal Smoking Status Never BSA 2.54 m?? Physical Exam Vitals reviewed. Constitutional: Appearance: Normal appearance. Comments: Walks with a cane HENT: Mouth/Throat: Pharynx: No oropharyngeal exudate or posterior oropharyngeal erythema. Eyes: Conjunctiva/sclera: Conjunctivae normal. Pupils: Pupils are equal, round, and reactive to light. Cardiovascular: Rate and Rhythm: Normal rate. Pulmonary: Effort: Pulmonary effort is normal. Musculoskeletal: General: Normal range of motion. Comments: Tenderness noted in bilateral wrists joints, multiple MCPs, PIP is and bilateral knee andankle joints. Skin: Capillary Refill: Capillary refill takes less than 2 seconds. Comments: Well-healed scar over left forearm, from accident in Neurological: Mental Status: She is alert. Mental status is at baseline. Psychiatric: Mood and Affect: Mood normal. There is currently no information documented on the homunculus. Go to the Rheumatology activity andcomplete the homunculus joint exam. Joint Exam 09/20/2024 No joint exam has been documented for this visit CDAI: -- VALE-28 (CRP): -- VALE-28 (ESR): -- Results: Appointment on 08/23/2024 Component Date Value Alpha Fetoprotein, Serum 08/23/2024 10.5 (H) Prothrombin Time 08/23/2024 17.7 (H) INR 08/23/2024 1.4 (H) WBC Count 08/23/2024 6.90 RBC Count 08/23/2024 3.25 (L) HGB 08/23/2024 9.6 (L) HCT 08/23/2024 31.5 (L) Platelet Count 08/23/2024 245 MCV 08/23/2024 97 MCH 08/23/2024 29.5 MCHC 08/23/2024 30.5 (L) RDW 08/23/2024 16.9 (H) MPV 08/23/2024 10.4 nRBC 08/23/2024 0.0 Differential Type 08/23/2024 Automated Neutrophils % 08/23/2024 68 Lymphocytes % 08/23/2024 20 Monocytes % 08/23/2024 4 Eosinophils % 08/23/2024 6 Basophils % 08/23/2024 2 Immature Granulocytes % 08/23/2024 0 Neutrophils Absolute 08/23/2024 4.76 Lymphocytes Absolute 08/23/2024 1.35 Monocytes Absolute 08/23/2024 0.25 (L) Eosinophils Absolute 08/23/2024 0.41 Basophils Absolute 08/23/2024 0.11 (H) Immature Granulocytes Ab* 08/23/2024 0.02 Glucose, Plasma 08/23/2024 132 (H) BUN, Plasma 08/23/2024 13 Creatinine, Plasma 08/23/2024 0.74 BUN/Creatinine Ratio 08/23/2024 18 Sodium, Plasma 08/23/2024 143 Potassium, Plasma 08/23/2024 3.8 Chloride, Plasma 08/23/2024 108 (H) CO2, Plasma 08/23/2024 22 Anion Gap 08/23/2024 13 Total Calcium, Plasma 08/23/2024 8.8 (L) Total Protein 08/23/2024 6.8 Albumin, Plasma 08/23/2024 3.5 AST, Plasma 08/23/2024 53 (H) ALT, Plasma 08/23/2024 31 Alkaline Phosphatase, Pl* 08/23/2024 222 (H) Total Bilirubin, Plasma 08/23/2024 1.0 eGFRcr 08/23/2024 93.3 CRP, Plasma 08/23/2024 7.4 Sedimentation Rate 08/23/2024 43 (H) Ferritin, Serum 08/23/2024 456 (H) Vitamin B12, Serum 08/23/2024 762 Iron, Plasma 08/23/2024 43 Transferrin, Plasma 08/23/2024 187 (L) Total Iron Binding [place]* 08/23/2024 234 (L) Transferrin Saturation 08/23/2024 18 Folate, Serum 08/23/2024 >20.0 Currently available Rheumatologic testing values noted below: Lab Results Component Value Date SEDRATE 43 (H) 08/23/2024 RF 18 (H) 10/02/2020 KAMERON Detected (H) 03/28/2022 ANATITER 1:160 (A) 03/28/2022 CRP 7.4 08/23/2024 CCPIGG <5.0 10/02/2020 Lab Results Component Value Date ALDOLASE 4.7 03/30/2021 LUISA 18 10/03/2020 SCL70 0 10/03/2020 C3 163 08/10/2021 C4 36 08/10/2021 Assessment Assessment/Plan Marizol Bishop is a 59 y.o. 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 She has not taking any gout medication including febuxostat or colchicine in last 24 months and does not report any flares. In the past due to slightly elevated liver enzymes continuation of methotrexate was in question butlately her liver enzymes have improved with decreased dose of methotrexate and decreased dose of Protonix. Patient also follows with hepatology. We will continue to monitor closely. Patient would like to continue methotrexate as she reports the best results with the use of methotrexate. Patient understand the risk of liver toxicity in the presence of fatty liver, and concomitant use of Protonix and methotrexate. Today Patient's diseases not stable on methotrexate. Hydroxychloroquine is relatively contraindicated given macular degeneration. She also has slight elevation of transaminases, because of which we would not be able to use sulfasalazine. We will start patient on Humira in combination with methotrexate. Dose of methotrexate will be reduced from 15 mg to 10 mg each week. Continue folic acid. Risk of infection significantly increases with the use of biologics and methotrexate. Patient verbalized understanding It was discussed with the patient to stop taking methotrexate and Humira in case of any infection and seek medical attention. Patient verbalized understanding. Recurrent fevers: Initially having fever for almost last 3 months every night, her fever can go up to 102 degree F. Sed rate and CRP significantly elevated Later on her fever pattern has changed, she reports having fevers usually when she goes outside thehouse. If she remains since arthralgias usually she does not develop any fever Seen by Infectious Disease, further workup going on. Ferritin levels are not significantly elevated, sed rate and CRP also improved later on. Gastroesophageal reflux disease, unspecified whether esophagitis present - continue Protonix as needed ??Polyarticular gout Patient has not used any of her anti gout medications for last 2 years. She is recommended to report any symptoms or flares. Patient verbalized understanding. High risk medication use QuantiFERON gold and hepatitis B and C negative from 2024 Protonix can increase the levels of methotrexate by decreasing renal excretion, it was discussed with the patient. Patient verbalized understanding. Patient reports that her symptoms are well controlled and she is using Protonix only on needed basis. Therapeutic drug monitoring On methotrexate, will check CBC and CMP every 3 months Positive KAMERON (antinuclear antibody) Does not meet criteria for lupus. Elevated liver enzymes/transaminitis AST 53, upper limit is 35. Methotrexate already decreased from 15 mg every week to 10 mg. Follow up in about 3 months (around 12/21/2024). Diagnosis Plan 1. Inflammatory polyarthritis (CMS/HCC) methotrexate 2.5 MG tablet folic acid (Folvite) 1 MG tablet CBC and differential Comprehensive metabolic panel Sedimentation Rate, Automated C-reactive protein 2. High risk medication use folic acid (Folvite) 1 MG tablet Counseling: diagnosis, lab results, treatment options, follow up plan and return instructions Information regarding activities, treatments, and follow-up recommendations were provided to the patient/family member(s) present today who have shown recognition and demonstration of understanding of this information. Note to patient: The 21st Century Cures Act makes medical notes like these available to patients inthe interest of transparency. However, be advised this is a medical document. It is intended as peer to peer communication. It is written in medical language and may contain abbreviations or verbiagethat are unfamiliar. It may appear blunt or direct. Medical documents are intended to carry relevant information, facts as evident, and the clinical opinion of the medical professional. Parts of this note were dictated using [employer] voice recognition software. As a result, errors may occur. When identified, these surgery technician errors are corrected, but while every attempt is made to prevent/correct these, errors may still exist. The patient was counseled about diagnostic results, instruction for management, risk factors reduction, prognosis, compliance with visits and treatment, risks and benefits of treatments options. Prior notes (by external physicians) and results were reviewed by me with independent interpretation of labs and imaging. My note will be sent to PCP and other consulting physicians. Jesus Tanner MD Secondary Art Teacher Division of Rheumatology Department of Internal Medicine [facility] Electronically Signed by: Jesus Tanner MD - 09/20/2024 - 2:36 PM documented in this encounter Plan of Treatment Upcoming Encounters Date Type Department Care Team (Late st Contact Info) Description 11/15/2024 10:20 AM EDT Office Visit [facility] [address] [place] [address] Melyssa Encinas PA [address] [place] [address] 12/29/2024 1:30 PM EDT Office Visit [facility] [address] [place] [address] Jesus Tanner MD [address] [place] [address] 02/24/2025 3:00 PM EST Office Visit [facility] [address] [place] [address] Rebekah Aragon PA [address] [place] [address] 02/28/2025 10:00 AM EST Office Visit [facility] [address] [place] [address] Ec, Melyssa M, PA [address] [place] [id number] 07/12/2025 11:00 AM EDT Ovarian Cancer Screening [facility] [address] [facility] [place] [address] documented as of this encounter Goals Goal Patient Goal Type Associated Problems Recent Progress Patient-Stated? Author Autogenerat ed Goal Care Plan Autogenerated Problem No Dana Leiva documented as of this encounter Results * C-reactive protein (09/20/2024 2:05 PM EDT) CRP, Plasma 6.7 <=8.0 mg/L 09/20/2024 3:14 PM EDT [facility] Blood Venous blood specimen / Unknown Venipuncture / Unknown 09/20/2024 2:05 PM EDT 09/20/2024 2:05 PM EDT Narrative [facility] - 09/20/2024 3:14 PM EDT This CRP test is appropriate for assessment of infection, systemic inflammation and/or tissue injury. To assess cardiovascular disease risk order high sensitivity CRP (CRPH). Jesus Tanner MD LAB BLOOD ORDERABLES Final Re sult Performing Organization Address [facility]/ZIP Co de Phone Number [address] [address] * (ABNORMAL) Sedimentation Rate, Automated (09/20/2024 2:05 PM EDT) Sedimentation Rate 58(H) <30 mm/hr 2024 3:19 PM EDT [facility] Blood Venous blood specimen / Unknown Venipuncture / Unknown 09/20/2024 2:05 PM EDT 09/20/2024 2:05 PM EDT Jesus Tanner MD LAB BLOOD ORDERABLES Final Re sult [facility] [address] [place] [address] * (ABNORMAL) Comprehensive metabolic panel (09/20/2024 2:05 PM EDT) Glucose, Plasma 117(H) 74 - 99 mg/dL 09/20/2024 3:14 PM EDT [facility] BUN, Plasma 13 7 - 21 mg/dL 09/20/2024 3:14 PM EDT [facility] Creatinine, Plasma 0.91 0.60 - 1.10 mg/dL 09/20/2024 3:14 PM EDT [facility] BUN/Creatinine Ratio 09/20/2024 3:14 PM EDT [facility] Sodium, Plasma 140 136 - 145 mmol/L 09/20/2024 3:14 PM EDT [facility] Potassium, Plasma 3.8 3.6 - 4.9 mmol/L 09/20/2024 3:14 PM EDT [facility] Chloride, Plasma 106 97 - 107 mmol/L 09/20/2024 3:14 PM EDT [facility] CO2, Plasma 22 22 - 29 mmol/L 09/20/2024 3:14 PM EDT [facility] Anion Gap 12 6 - 16 mmol/L 09/20/2024 3:14 PM EDT [facility] Total Calcium, Plasma 9.3 8.9 - 10.2 mg/dL 09/20/2024 3:14 PM EDT [facility] Total Protein 7.5 6.3 - 7.9 g/dL 09/20/2024 3:14 PM EDT [facility] Albumin, Plasma 3.7 3.5 - 5.2 g/dL 09/20/2024 3:14 PM EDT [facility] AST, Plasma 54(H) 10 - 35 U/L 09/20/2024 3:14 PM EDT [facility] ALT, Plasma 30 10 - 35 U/L 09/20/2024 3:14 PM EDT [facility] Alkaline Phosphatase, Plasma 180(H) 46 - 142 U/L 09/20/2024 3:14 PM EDT [facility] Total Bilirubin, Plasma 1.7(H) 0.2 - 1.1 mg/dL 09/20/2024 3:14 PM EDT [facility] eGFRcr 72.8 mL/min/1.7 3m*2 09/20/2024 3:14 PM EDT [facility] Comment:Reported eGFRcr in m L/min/1.73m2 is based the CKD-EPI 2020 equation that does not use a race coefficient. Blood Venous blood specimen / Unknown Venipuncture / Unknown 09/20/2024 2:05 PM EDT 09/20/2024 2:05 PM EDT us Jesus Tanner MD LAB BLOOD ORDERABLES Final Re sult [facility] [address] [place] [address] * (ABNORMAL) CBC and differential (09/20/2024 2:05 PM EDT) WBC Count 8.34 3.70 - 10.30 10*3/uL LAB HEMATOLOGY METHOD 09/20/2024 4:01 PM EDT [facility] RBC Count 3.64(L) 3.90 - 5.20 10*6/uL LAB HEMATOLOGY METHOD 09/20/2024 4:01 PM EDT [facility] HGB 11.0(L) 11.2 - 15.7 g/dL LAB HEMATOLOGY METHOD 09/20/2024 4:01 PM EDT [facility] HCT 35.9 34.0 - 45.0 % LAB HEMATOLOGY METHOD 09/20/2024 4:01 PM EDT [facility] Platelet Count 163 155 - 369 10*3/uL LAB HEMATOLOGY METHOD 09/20/2024 4:01 PM EDT [facility] MCV 99(H) 79 - 98 fL LAB HEMATOLOGY METHOD 09/20/2024 4:01 PM EDT [facility] MCH 30.2 26.0 - 32.0 pg LAB HEMATOLOGY METHOD 09/20/2024 4:01 PM EDT [facility] MCHC 30.6(L) 30.7 - 35.5 g/dL LAB HEMATOLOGY METHOD 09/20/2024 4:01 PM EDT [facility] RDW 16.0(H) 11.5 - 14.5 % LAB HEMATOLOGY METHOD 09/20/2024 4:01 PM EDT [facility] MPV 10.7 8.8 - 12.5 fL LAB HEMATOLOGY METHOD 09/20/2024 4:01 PM EDT [facility] nRBC 0.0 <=0.0 per 100 WBCs LAB HEMATOLOGY METHOD 09/20/2024 4:01 PM EDT [facility] Differential Type Automated LAB HEMATOLOGY METHOD 09/20/2024 4:01 PM EDT [facility] Neutrophils % 68 % LAB HEMATOLOGY METHOD 09/20/2024 4:01 PM EDT [facility] Lymphocytes % 25 % LAB HEMATOLOGY METHOD 09/20/2024 4:01 PM EDT [facility] Monocytes % 1 % LAB HEMATOLOGY METHOD 09/20/2024 4:01 PM EDT [facility] Eosinophils % 5 % LAB HEMATOLOGY METHOD 09/20/2024 4:01 PM EDT [facility] Basophils % 1 % LAB HEMATOLOGY METHOD 09/20/2024 4:01 PM EDT [facility] Immature Granulocytes % 0 % LAB HEMATOLOGY METHOD 09/20/2024 4:01 PM EDT [facility] Neutrophils Absolute 5.55 1.60 - 6.10 10*3/uL LAB HEMATOLOGY METHOD 09/20/2024 4:01 PM EDT [facility] Lymphocytes Absolute 2.12 1.20 - 3.90 10*3/uL LAB HEMATOLOGY METHOD 09/20/2024 4:01 PM EDT [facility] Monocytes Absolute 0.12(L) 0.30 - 0.90 10*3/uL LAB HEMATOLOGY METHOD 09/20/2024 4:01 PM EDT [facility] Eosinophils Absolute 0.44 0.00 - 0.50 10*3/uL LAB HEMATOLOGY METHOD 09/20/2024 4:01 PM EDT [facility] Basophils Absolute 0.08 0.00 - 0.10 10*3/uL LAB HEMATOLOGY METHOD 09/20/2024 4:01 PM EDT [facility] Immature Granulocytes Absolute 0.03 0.00 - 0.06 10*3/uL LAB HEMATOLOGY METHOD 09/20/2024 4:01 PM EDT [facility] Blood Venous blood specimen / Unknown Venipuncture / Unknown 09/20/2024 2:05 PM EDT 09/20/2024 2:05 PM EDT Narrative [facility] - 09/20/2024 4:01 PM EDT Therapeutic decision making should be based on absolute values, rather than percentages. Jesus Tanner MD LAB BLOOD ORDERABLES Final Re sult [facility] [address] [place] [address] documented in this encounter Visit Diagnoses Diagnosis Inflammatory polyarthritis (CMS/HCC) Unspecified inflammatory polyarthropathy High risk medication use documented in this encounter Additional Health Concerns Active Problems Noted Date Diagnosed Date Autogenerated Problem 08/24/2024 Assessment Noted Time PHQ-9 Depression Total Score: 20 025 1:12 PM EDT A fall risk assessment has been complete d for the patient 09/20/2024 1:12 PM EDT A Body Mass Index follow-up plan has been documented for the patient 09/20/2024 1:43 PM EDT documented as of this encounter Care Teams Lactation Specialist Relationship Specialty Start Date End Date Dru Giles MD PCP - General 11/21/21 documented as of this encounter
--- OUTSIDE RECORDS SUMMARY | 2024-10-07 13:20 | XMS_ITS | Encounter Summary ---
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 LUISA-I/ARBs/NSAIDs/ # EV surveillance 05/31/21 EGD - no EV or PHG Consider coreg on f/up # Liver lesion # HCC surveillance AFP 10.4 --> 9.2 09/23/23 MRI - segment IVb 2.6 cm lesion, overall a pseudolesion is favored rather than a true lesion 10/03/23 tumor board - Reviewed MRI. Given the features and location of this lesion, this likely is not a true lesion. Repeat MRI in 3 months to monitor. 12/22/23 MRI - segment IVb 2.6 cm lesion, overall a pseudolesion is favored rather than a true lesion CEUS 05/04/24 - The pseudolesion in question in segment IVb is not identified on today's exam. Recommend future follow-up with MR abdomen. MRI 06/30/24 - Cirrhotic liver.Focal Hepatic Observations:LI-RADS NegativeExtrahepatic Findings:Mildsplenomegaly and a small amount of ascites.She is feeling more distended in her abd at times and also has some LE edema. She is not on diuretics. 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 Doing a gluten free diet as of about 6 months ago. Notes less bloating Previously followed with Dr. Banuelos, now scheduled with Cielo Bee 07/21/23 # HTN - metoprolol was stopped recently, valsartan reduced # HLD - # Obesity - She has a hx of HTN and HLD since her 20s. Her peak weight as an adult has been about 326 pounds. # Macular Degeneration -right eye #Health Maintenance Colonoscopy - 05/31/21 - colonoscopy - entire colon appeared otto Follow up in 1 months A total of 37 minutes was spent on this patient encounter - educating patient, interpreting and discussing labs and imaging, impressions, prognosis, risks/benefits of current treatment options, risk factor reduction, instructions for management, and documentation. Care coordination provided included review and summary of medical records and additional diagnostic research, phone collaboration and consult with peers. documented in this encounter Plan of Treatment Upcoming Encounters Date Type Department Care Team (Late st Contact Info) Description 11/15/2024 10:20 AM EDT Office Visit [facility] Medicine Specialties [address] [place] [phone] Melyssa Encinas, PA [address] [place] [address] 12/29/2024 1:30 PM EDT Office Visit [facility] Specialties [address], [address] [place] [phone] Jesus Tanner MD [address] [place] [address] 02/24/2025 3:00 PM EST Office Visit [facility] [address] [place] [phone] Rebekah Aragon PA [address] [place] [address] 02/28/2025 10:00 AM EST Office Visit [facility] [address] [place] [address] Melyssa Encinas PA [address] [place] [phone] 07/12/2025 11:00 AM EDT Ovarian Cancer Screening [facility] Gynecology [address] [facility] [place] [address] Scheduled Referrals Name Type Priority Associated Diagnoses Orde r Schedule Follow Up GI Outpatient Referral Routine Decompensated cirrhosis (CMS/HCC) Expected: 11/04/2024, Expires: 11/07/2025 documented as of this encounter Goals Goal Patient Goal Type Associated Problems Recent Progress Patient-Stated? Author Autogenerat ed Goal Care Plan Autogenerated Problem No Dana Leiva documented as of this encounter Visit Diagnoses Diagnosis Decompensated cirrhosis (CMS/HCC)- Primary Liver lesion Other specified disorders of liver High risk medication use Elevated liver enzymes Other nonspecific abnormal serum enzyme levels Other ascites Hepatic encephalopathy (CMS/HCC) Hepatic encephalopathy documented in this encounter Additional Health Concerns Active Problems Noted Date Diagnosed Date Autogenerated Problem 08/24/2024 Assessment Noted Time PHQ-9 Depression Total Score: 2 10/08/19 25 1:12 PM EDT A fall risk assessment has been complete d for the patient 10/07/2024 1:13 PM EDT A Body Mass Index follow-up plan has been documented for the patient 10/08/2024 10:08 AM EDT documented as of this encounter Care Teams Marketing Communication Manager Relationship Specialty Start Date End Date Dru Giles MD PCP - General 11/21/21 documented as of this encounter
--- OUTSIDE RECORDS SUMMARY | 2024-10-14 11:56 | XMS_ITS | Encounter Summary ---
Author Organization [facility] Address [address] [id number] Care Team Providers Care Frame Operator Name Role Phone Dru Giles MD Primary Care Provider [phone] Reason for Referral * Imaging (Routine) - Closed Specialty Diagnoses / Procedures Referred By Giana lo Referred To Contact Gastroenterology Diagnoses Gastroesophageal reflux disease, unspecified whether esophagitis present History of cirrhosis Bilious vomiting with nausea Procedures EGD Melyssa Encinas PA [address] [address] Phone: tel: fax: Referral ID Status Reason Start Date Expiration Date V isits Requested Visits Authorized [id number] Closed Specialty Services Required 08/24/2024 02/23/2026 1 1 Reason for Visit * Imaging (Routine) - Closed Specialty Diagnoses / Procedures Referred By Giana lo Referred To Contact Gastroenterology Diagnoses Gastroesophageal reflux disease, unspecified whether esophagitis present History of cirrhosis Bilious vomiting with nausea Procedures EGD Melyssa Encinas PA [address] [facility] [address] [place] [address] Phone: tel: fax: Referral ID Status Reason Start Date Expiration Date V isits Requested Visits Authorized [id number] Closed Specialty Services Required 08/24/2024 02/23/2026 1 1 Encounter Details Date Type Department Care Team (Latest Contact Info) Description 10/14/2024 11:56 AM EDT - 10/14/2024 11:59 PM EDT Hospital Encounter [facility] [address] [place] [address] Alverto Barney MD [address] [place] [address] Ari Barfield MD [address] [place] [address] Israel Murrell CRNA [address] [place] [address] Constance Infante GS - Endoscopy [...] if needed for anaphylaxis. ergocalciferol 1.25 MG (54501 UT) capsule Take 1 capsule by mouth [...] nightly. 09/11/2020 Multiple Vitamins-Minerals (EQ One Daily [employer]) tablet Take 1 tablet by mouth daily. Nystop 488799 UNIT/GM powder apply topically to the affected [...] day in the morning. 09/11/2020 11/06/19 25 documented as of this encounter Miscellaneous [...] since 09/13/24 Location Start Date End Date [facility]) 09/13/24 09/19/24 Allergies Bee venom, Compleat, Morphine, Other, Penicillin g, Shellfish-derived products, Sulfacetamide, Wheat, Yeast, Pork allergy, Shellfish allergy, Trimethoprim, Diphth-acell pertussis-tetanus, Dtap-hepatitis b recomb-ipv, Zvgy-heb-xcp-hepatitis b recmb, Penicillin v potassium, Penicillins, Sulfa [...] if needed for anaphylaxis. ergocalciferol 1.25 MG (94182 UT) capsule Take 1 capsule (50,000 Units) [...] every night. Multiple Vitamins-Minerals (EQ One Daily [employer]) tablet Take 1 tablet by mouth 1 (one) time each day. (Patient not taking: Reported on 10/07/2024) Nystop 460264 UNIT/GM powder apply topically to the affected [...] from the original note were not included. 847172mg Recovery After Procedural Sedation (Adult) You have [...] awakened. Last Reviewed Date: 2023 00:00:00 ?? [id number] [employer]. All rights reserved. This information is not intended as a substitute for professional medical care. Always follow your healthcare professional's instructions. * [facility] - Jane Ortega RN - 10/14/2024 12:15 PM EDT Images from the original note were not included. [address] Endoscopy Unit: Caring for Yourself after an [...] will be available in the patient portal, [employer]. Or you can call the doctor who [...] Description 11/15/2024 10:20 AM EDT Office Visit [facility] [address] [place] [address] Melyssa Encinas PA [address] [place] [address] 12/29/2024 1:30 PM EDT Office Visit [facility] [address], [address] [place] [address] Jesus Tanner MD [address] [place] [address] 02/24/2025 3:00 PM EST Office Visit [facility] [address], [address] [place] [address] Rebekah Aragon PA [address] [place] [address] 02/28/2025 10:00 AM EST Office Visit [facility] [address] [place] [address] Melyssa Encinas PA [address] [place] [address] 07/12/2025 11:00 AM EDT Ovarian Cancer Screening [facility] [address] [place] [address] documented as of this encounter Goals Goal [...] Infante Endo Nurse Ari Barfield MD Proceduralist Rjei Dewey Endo [employer] Israel Murrell CRNA CRNA Preprocedure A history [...] PM EDT) Case Report Surgical Pathology Case: [id number] Authorizing Provider: Ari Barfield, Collected: 10/14/2024 1253 Ordering Location: [facility] Received: 10/14/2024 1416 Pathologist: Bubba Bryan MD Specimen: Stomach, biopsy 10/15/2024 4:29 PM EDT [facility] Final Diagnosis STOMACH, BIOPSY: - REACTIVE GASTROPATHIC CHANGES - NO EVIDENCE OF HELICOBACTER-LIKE ORGANISMS ON ROUTINE STAIN 10/15/2024 4:29 PM EDT [facility] at 1629 EDT Clinical Information [...] duodenum appeared normal. 10/15/2024 4:29 PM EDT [facility] Gross Description A. BIOPSY Received in formalin labeled b iopsy, stomach , are 2 pink-white soft fragments of tissue measuring from 0.3 cm to 0.6 cm in greatest dimension. Entirely submitted in cassette A1. Cold Time: 1m Lakisha Dubois 10/15/2024 4:29 PM EDT [facility] Note: A resident was involved in the service. I attest I examined the relevant preparations for the specimens and confirmed the diagnosis or interpretation. 10/15/2024 4:29 PM EDT [facility] Tissue Stomach structure / Unknown 10/14/2024 12:53 PM EDT 10/14/2024 2:16 PM EDT us Ari Barfield MD LAB PATHOLOGY ORDERABL ES Final Result [facility] [address] [place] [address] documented in this encounter Visit Diagnoses Diagnosis [...] Time PHQ-9 Depression Total Score: 2 10/08/19 1:12 PM EDT A fall risk assessment has been complete d for the patient 10/07/2024 1:13 PM EDT A Body Mass Index follow-up plan has been documented for the patient 10/08/2024 10:08 AM EDT documented as of this encounter Care Teams Frame Operator Relationship Specialty Start Date End Date Dru Giles MD PCP - General 11/21/21 documented as of this encounter
--- OUTSIDE RECORDS SUMMARY | 2024-10-14 12:41 | XMS_ITS | Encounter Summary ---
Author Organization [facility] Address [address] [place] [address] Care Team Providers Care Reactor Kettle Operator Name Role Phone Dru Giles MD Primary Care Provider [phone] Encounter Details Date Type Department Care Team ([facility] st Contact Info) Description 10/14/2024 12:41 PM EDT Anesthesia Event [facility] Endoscopy [address] [place] [address] Alverto Barney MD [address] [place] [address] Anesthesia Record Procedure Summary Procedure Name Responsible [...] occasion? Never 10/14/2024 12:26 PM EDT Jane Ortega, RN documented as of this encounter [...] mg, Nightly Multiple Vitamins-Minerals (EQ One Daily [employer] e|tab) tablet 1 tablet, Daily Nystop 415753 UNIT/GM powder apply topically to the affected [...] ABG No results found for: PHART , WLQ0RFC , PO2ART , SO2ART , BEART , EVM2MLO , HCTART , SODIUMART , POTASSIUMART , POCTCL , POCGLU , IONCALART , LACTATE No results found for: PH , PCO2 , PO2 , K6XTHBAM , BASEEXC , HCTSYR , KSYR , CLSYR , GLUSYR , CAION , LACTATE ECHO No echocardiogram results found for the past 12 months PFTs No results found for: YID0NJN , AHK8BCHM , QBC2ECE , FVCPRED BP Readings from Last 5 [...] Plan ASA 3 Plan was reviewed with: EDUCATIONAL ADMINISTRATOR Anesthesia technique(s) discussed with the patient/family: general [...] - please document in the comment field Rywi-Svh-Tjs-Hepatitis B Recmb Other - please document in [...] Description 11/15/2024 10:20 AM EDT Office Visit [facility] Medicine Specialties [address], [address] [place] [address] Melyssa Encinas PA [address] [place] [address] 12/29/2024 1:30 PM EDT Office Visit [facility] Medicine Specialties [address] [address] Jesus Tanner MD [address] [place] [address] 02/24/2025 3:00 PM EST Office Visit [facility] Medicine Specialties [address], [address] [place] [address] Rebekah Aragon PA [address] [place] [address] 02/28/2025 10:00 AM EST Office Visit [facility] Medicine Specialties [address], [address] [place] [address] Melyssa Encinas PA [address] [place] [address] 07/12/2025 11:00 AM EDT Ovarian Cancer Screening [facility] [address], [address] [place] [address] documented as of this encounter Goals Goal [...] at 1246, Until Hillary 10/14/24 at 1304, Routine Rate/Dose Change 10/14/2024 12:53 [...] documented as of this encounter Care Teams Reactor Kettle Operator Relationship Specialty Start Date End Date Dru Giles MD PCP - General 11/21/21 documented as of this encounter"
--- OUTSIDE RECORDS SUMMARY | 2024-11-04 15:40 | XMS_ITS | Encounter Summary ---
Author Organization [facility] Address [address] [id number] Care Team Providers Care Automobile Technician Name Role Phone Dru Giles MD Primary Care Provider [phone] Reason for Referral * Imaging (Routine) - Pending Review Specialty Diagnoses / Procedures Referred By Contac t Referred To Contact Radiology Diagnoses On methotrexate therapy Cirrhosis of liver without ascites, unspecified hepatic cirrhosis type (CMS/HCC) Procedures US Liver Screen Rebekah Aragon PA [address] [address] Phone: tel: fax: Referral ID Status Reason Start Date Expiration Date V isits Requested Visits Authorized [id number] Pending Review 11/04/2024 05/06/2026 1 1 * Consultation (Routine) - Authorized Specialty Diagnoses / Procedures Referred By Contac t Referred To Contact Diagnoses On methotrexate therapy Cirrhosis of liver without ascites, unspecified hepatic cirrhosis type (CMS/HCC) Rebekah Aragon PA [address] [facility] [address] [place] [address] Phone: tel: fax: Referral ID Status Reason Start Date Expiration Date V isits Requested Visits Authorized [id number] Authorized 11/04/2024 05/06/2026 1 1 Reason for Visit * Reason Comments Decompensated cirrhosis * Consultation (Routine) - Closed Specialty Diagnoses / Procedures Referred By Contac t Referred To Contact Diagnoses Cirrhosis of liver without ascites, unspecified hepatic cirrhosis type (CMS/HCC) Rebekah Aragon PA [id number] [place] [address] Phone: tel: fax: Referral ID Status Reason Start Date Expiration Date Visits Re quested Visits Authorized [id number] Closed 10/07/2024 04/08/2026 1 1 Encounter Details Date Type Department Care Team (Late st Contact Info) Description 11/04/2024 3:40 PM EDT Office Visit [facility] [address] [place] [address] Rebekah Aragon PA [id number] [place] [address] On methotrexate therapy (Primary Dx); Cirrhosis of liver without ascites, unspecified hepatic cirrhosis type (CMS/HCC) Social History Tobacco Use Types Packs/Day Years Used Date Smoking Tobacco: Never Passive Smoke Exposure: Never Smokeless Tobacco: Never Alcohol Use Standard Drinks/Week Comments Not Currently 0 (1 standard drink = 0.6 oz pur e alcohol) PHQ-2 Answer Date Recorded Patient Health Questionnaire-2 Score 0 11/04/2024 PHQ-9 Answer Date Recorded Patient Health Questionnaire-9 Score 0 11/04/2024 AUDIT-C Answer Date Recorded Q1: How often [...] Sign Reading Time Taken Comments Blood Pressure 119/67 11/04/2024 4:23 PM EDT Pulse 75 11/04/2024 3:13 PM EDT Temperature 36.7 C (98 F) 11/04/2024 3:13 PM EDT Respiratory Rate - - Oxygen Saturation 98% 11/04/2024 3:13 PM EDT Inhaled Oxygen Concentration - - Weight 132 kg (291 lb 7.2 oz) 11/04/2024 3:13 PM EDT Height 170.2 cm (5' 7 ) 11/04/2024 3:13 PM EDT Body Mass Index 45.65 11/04/2024 3:13 PM EDT documented in this encounter Functional Status * Over the past 2 weeks, how often have you been bothered by any of the following problems? Question Answer Date of Assessment Author Little interest or pleasure in doing things Not at all 11/04/2024 3:15 PM JABARIT Samantha Morataya CNA Feeling down, depressed, or hopeless Not at all 11/04/2024 3:15 PM EDT Samantha Morataya CNA Patient Health Questionnaire -2 Score 0 11/04/2024 3:15 PM EDT Samantha Morataya CNA * Question Answer Date of Assessment Author Trouble falling or staying asleep, or sleeping too much Not at all 11/04/2024 3:15 PM JABARIT Renay Morataya CNA Feeling tired or having santos le energy Not at all 11/04/2024 3:15 PM Samantha Alamo CNA Poor appetite or overeating Not at all 11/04/2024 3: 15 PM JABARIT Samantha Morataya CNA Feeling bad about yourself - or that you are a failure or have let yourself or your family down Not at all 11/04/2024 3:15 PM Samantha Alamo CNA Trouble concentrating on things, such as reading the newspaper or watching television Not at all 11/04/2024 3:15 PM Samantha Alamo CNA Moving or speaking so slowly that other people could have noticed? Or the opposite - being so fidgety or restless that you have been moving around a lot more than usual. Not at all 11/04/2024 3:15 PM Samantha Alamo CNA Thoughts that you would be better off or hurting yourself in some way Not at all 11/04/2024 3:15 PM Samantha Alamo CNA Patient Health Questionnaire -9 Score 0 11/04/2024 3:15 PM Samantha Alamo CNA * If you checked off any problems on this questionnaire so far, Question Answer Date of Assessment Author How difficult have these problems made it for you to do your work, take care of things at home, or get along with other people? Not difficult at all 11/04/2024 3:15 PM Samantha Alamo CNA documented as of this encounter Miscellaneous Notes * Progress Notes - Rebekah Aragon PA - 11/04/2024 3:40 PM EDT Images from the original note were not included. MEDICINE SPECIALTIES Hepatology Note History of Present Illness Ms. 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 Last seen on 10/07/24. At that time had had new issues with cognition, confusion needing hospitalization and we started xifaxan and lactulose She reports an improvement in memory and cognitive function. However, there has been difficulty with text recognition, particularly with double letters or numbers, which is attributed to a recent concussion. Additionally, she has astigmatism and believes her current glasses prescription is too strong. She has not driven since her fall and is currently seeking a first-floor apartment. Physical andoccupational therapy sessions are ongoing once a week, with three more sessions of occupational therapy and five more of physical therapy approved by [facility]. An appointment with Dr. Shaw, a crm dynamics developer, is scheduled for 11/11/2024 due to recent development of thrombocytopenia Bowel movements have been irregular, with one occurring on Friday and another today, . Prior to this, there was a five-day period without a bowel movement. Lactulose has been taken three times a day without effectiveness, and a stool softener was also tried without success. Linzess is available at home but has not yet been started. Bright red blood was noticed in the stool during the lastbowel movement on Friday. The third Humira injection is scheduled for tomorrow, which has been beneficial. However, joint pain is experienced when methotrexate is taken the following week. Discontinuation of methotrexate is being considered to observe the duration of Humira's effects. She feels Methotrexate is ineffective SOCIAL HISTORY Exercise: Participates in physical therapy and occupational therapy once a week. 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 Celiac disease Delayed emergence from general anesthesia Dyspnea on [...] Idiopathic sleep related nonobstructive alveolar hypoventilation 04/29/2023 Irritable bowel syndrome Lupus Unsure Macular degeneration 04/19/2024 MDD (major depressive disorder), recurrent, with melancholic features ([facility]) 04/19/2024 Martin shared that there are [...] Shemar Pancreatic cancer Brother Shemar Hypertension Brother Arnulfo Heart defect Brother Arnulfo Pneumonia Maternal Grandfather Autoimmune disease Mother's Sister Kayleen Heaton Hypertension Brother Shemar and Les yman Social History Social History Socioeconomic History Marital [...] Breo Ellipta 200-25 MCG/ACT aerosol powder Daily EPINEPHrine (AUVI-Q) 0.15 mg/0.15 mL IJ [...] 1 BM daily or every other day linaCLOtide (LINZESS) 72 mcg, Oral, Daily meclizine (ANTIVERT) 25 mg methotrexate 10 mg, Oral, Weekly, Follow directions carefully, and ask to explain any part you do not understand. Take exactly as directed. montelukast (SINGULAIR) 10 mg, Nightly Multiple Vitamins-Minerals (EQ One Daily MSA Management Greenopedia) tablet 1 tablet, Daily Nystop 217999 UNIT/GM powder apply topically to the affected [...] OR arm pits valsartan (DIOVAN) 320 mg, Every morning Zegalogue [...] - please document in the comment field Qmed-Vlt-Mot-Hepatitis B Recmb Other - please document in [...] rxn details Vital Signs Visit Vitals BP 119/67 Pulse 75 Temp 36.7 ??C (98 ??F) Ht 1.702 m (5' 7 ) Wt 132 kg (291 lb 7.2 oz) SpO2 98% BMI 45.65 kg/m?? OB Status Postmenopausal Smoking Status Never BSA 2.5 m?? Physical Exam General - well nourished [...] - pleasant, calm, cooperative. Labs MELD 3.0: 11 at 11/04/2024 4:54 PM MELD-Na: 11 at 11/04/2024 4:54 PM Calculated from: Serum Creatinine: 0.82 mg/dL (Using min of 1 mg/dL) at 11/04/2024 4:54 PM Serum Sodium: 141 mmol/L (Using max of 137 mmol/L) at 11/04/2024 4:54 PM Total Bilirubin: 0.9 mg/dL (Using min of 1 mg/dL) at 11/04/2024 4:54 PM Serum Albumin: 3.4 g/dL at 11/04/2024 4:54 PM INR(ratio): 1.5 at 11/04/2024 4:54 PM Age at listing (hypothetical): 59 years Sex: Female at 11/04/2024 4:54 PM Lab Results Component Value Date/Time AST 70 (H) 11/04/2024 1654 ALT 30 11/04/2024 1654 ALKPHOS 199 (H) 11/04/2024 1654 BILITOT 0.9 11/04/2024 1654 INR 1.5 (H) 11/04/2024 1654 ALBUMIN 3.4 (L) 11/04/2024 1654 CREATININE 0.82 11/04/2024 1654 AFP 7.8 11/04/2024 1654 Lab Results Component Value Date/Time HGB 11.1 (L) 11/04/2024 1654 WBC 4.60 11/04/2024 1654 PLT 77 (L) 11/04/2024 1654 Hepatitis Serologies Lab Results Component Value Date/Time HEPBSAG Negative 04/19/2024 1528 JOHN Negative 03/28/2022 1204 HECG Negative 04/19/2024 1528 HAG Negative 03/28/2022 1204 HEPBSAB Negative 03/28/2022 1204 Work-up Labs Lab Results Component Value Date/Time FERRITIN 456 (H) 08/23/2024 1038 TIBC 234 (L) 08/23/2024 1038 CERULOPLSM 03/28/2022 1204 Comment: SEE SCANNED REPORT Test performed at: [facility], [address] [place] [phone]. Gibson Nolasco MD,PhD., Brim Pouncer Machine Operator. HGBA1C 5.5 03/28/2022 1204 CHOL 194 03/28/2022 1204 LDLCALC 109.2 (H) 03/28/2022 1204 HDL 49 (L) 03/28/2022 1204 TRIG 179 (H) 03/28/2022 1204 Assessment and Plan Problem List Items Addressed This Visit On methotrexate therapy - Primary Relevant Orders Comprehensive metabolic panel (Completed) Protime-INR (Completed) Alpha Fetoprotein, Serum (Completed) Ammonia, Plasma (Completed) CBC and differential (Completed) Follow Up GI US Liver Screen Other Visit Diagnoses Cirrhosis of liver without ascites, unspecified hepatic cirrhosis type (CMS/HCC) Relevant Orders Comprehensive metabolic panel (Completed) Protime-INR (Completed) Alpha Fetoprotein, Serum (Completed) Ammonia, Plasma (Completed) CBC and differential (Completed) Follow Up GI US Liver Screen Ms. 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 # MASH cirrhosis # Elevated Liver Enzymes -dx 2022 [...] LKM <1:20, M2 5.2, AFP 4.3 Plan --recommend stopping Methotrexate given worsening liver disease - message sent to Dr. Tanner --update MELD labs today - 11 --there is some possible AIH overlap, her ALT is normal and her IgG is normal; given her weight andnormal ALT/IgG will defer --needs weight loss to delay any decompensation (20-30 pounds based on weight of 298 initially -- 291) --avoid alcohol, avoid hepatotoxic meds # Altered Mental Status # Likely HE Has per HPI has had overt and covert symptoms since June, recently hospitalized with AMS and fall and noted to also have UTI, concussion s/p fall Not on any therapy Has baseline constipation Pristiq and lamotrigine and mirtazapine were stopped Previous imaging has showed collateral vessels 10/07/24 visit started lactulose and xfiaxan, however not having BM despite lactulose --continue xifaxan BID --restart linzess at 72 mcg and dose reduce lactulose, discussed importance of BM # Ascites - grade 1 # LE Edema - moderate MRI 06/30/24 - small amount of ascites, new development SBP - no hx of LVP Diuretics - none Lab Results Component Value Date CREATININE 0.82 11/04/2024 EGFR 82.5 11/04/2024 NA 141 11/04/2024 K 4.3 11/04/2024 --will hold off on starting diuretics as we are adjusting some other meds today, will have close follow up in 1 month and likely start at that time --low Na diet --avoid LUISA-I/ARBs/NSAIDs/ # EV surveillance 05/31/21 EGD - no EV or PHG EGD 10/14/24 - no EV noted, no mention of PHG Consider coreg on f/up as she now has thrombocytopenia # Liver lesion # HCC surveillance AFP [...] monthly surveillance with alternating US and MRI, ordered US --ordered AFP on next set of labs # tophaceous polyarticular gout, inflammatory polyarthritis --recommend to discontinue Methotrexate in setting of worsening liver disease # Thrombocytopenia Previously normal, recently in last month (before starting humira) Ordered liver doppler to eval for PVT # Wheat, pork, yeast allergies - recently [...] appeared otto Follow up in 1 months Verbal consent was obtained to use ambient listening technology to assist in the documentation of the encounter: YES documented in this encounter Plan of Treatment Upcoming Encounters Date Type Department Care Team (Late st Contact Info) Description 11/15/2024 10:20 AM EDT Office Visit [facility] Medicine Specialties [address] [place] [address] Melyssa Encinas PA [address] [place] [address] 12/29/2024 1:30 PM EDT Office Visit [facility] Medicine [facility]ties [address] [place] [address] Jesus Tanner MD [address] [place] [address] 02/24/2025 3:00 PM EST Office Visit [facility] Medicine [facility]ties [address] [place] [address] Rebekah Aragon PA [address] [place] [address] 02/28/2025 10:00 AM EST Office Visit [facility] [address] [place] [address] Melyssa Encinas PA [address] [facility] [address] [place] [address] 07/12/2025 11:00 AM EDT [facility]varian Cancer Screening [facility] [address] [place] [phone] Scheduled Orders Name Type Priority Associated Diagnoses Orde r Schedule US Liver Screen Imaging Routine On methotrexate therapy Cirrhosis of liver without ascites, unspecified hepatic cirrhosis type (CMS/HCC) Expected: 01/05/2025 (Approximate), Expires: 05/08/2026 US Abdomen Doppler Complete Imaging Routine Cirrhosis of liver without ascites, unspecified hepatic cirrhosis type (CMS/HCC) Expected: 01/05/2025 (Approximate), Expires: 05/09/2026 Scheduled Referrals Name Type Priority Associated Diagnoses Orde r Schedule Follow Up GI Outpatient Referral Routine On methotrexate therapy Cirrhosis of liver without ascites, unspecified hepatic cirrhosis type (CMS/HCC) Expected: 02/04/2025, Expires: 12/05/2025 documented as of this encounter Goals Goal Patient Goal Type Associated Problems Recent Progress Patient-Stated? Author Autogenerat ed Goal Care Plan Autogenerated Problem No Dana Leiva documented as of this encounter Results * (ABNORMAL) CBC and differential (11/04/2024 4:54 PM EDT) WBC Count 4.60 3.70 - 10.30 10*3/uL LAB HEMATOLOGY METHOD 11/04/2024 8:10 PM EDT [facility] RBC Count 3.73(L) 3.90 - 5.20 10*6/uL LAB HEMATOLOGY METHOD 11/04/2024 8:10 PM EDT [facility] HGB 11.1(L) 11.2 - 15.7 g/dL LAB HEMATOLOGY METHOD 11/04/2024 8:10 PM EDT [facility] HCT 36.3 34.0 - 45.0 % LAB HEMATOLOGY METHOD 11/04/2024 8:10 PM EDT [facility] Platelet Count 77(L) 155 - 369 10*3/uL LAB HEMATOLOGY METHOD 11/04/2024 8:10 PM EDT [facility] MCV 97 79 - 98 fL LAB HEMATOLOGY METHOD 11/04/2024 8:10 PM EDT [facility] MCH 29.8 26.0 - 32.0 pg LAB HEMATOLOGY METHOD 11/04/2024 8:10 PM EDT [facility] MCHC 30.6(L) 30.7 - 35.5 g/dL LAB HEMATOLOGY METHOD 11/04/2024 8:10 PM EDT [facility] RDW 13.3 11.5 - 14.5 % LAB HEMATOLOGY METHOD 11/04/2024 8:10 PM EDT [facility] MPV 11.2 8.8 - 12.5 fL LAB HEMATOLOGY METHOD 11/04/2024 8:10 PM EDT [facility] nRBC 0.0 <=0.0 per 100 WBCs LAB HEMATOLOGY METHOD 11/04/2024 8:10 PM EDT [facility] Differential Type Automated LAB HEMATOLOGY METHOD 11/04/2024 8:10 PM EDT [facility] Neutrophils % 55 % LAB HEMATOLOGY METHOD 11/04/2024 8:10 PM EDT [facility] Lymphocytes % 32 % LAB HEMATOLOGY METHOD 11/04/2024 8:10 PM EDT [facility] Monocytes % 9 % LAB HEMATOLOGY METHOD 11/04/2024 8:10 PM EDT [facility] Eosinophils % 3 % LAB HEMATOLOGY METHOD 11/04/2024 8:10 PM EDT [facility] Basophils % 1 % LAB HEMATOLOGY METHOD 11/04/2024 8:10 PM EDT [facility] Immature Granulocytes % 0 % LAB HEMATOLOGY METHOD 11/04/2024 8:10 PM EDT [facility] Neutrophils Absolute 2.56 1.60 - 6.10 10*3/uL LAB HEMATOLOGY METHOD 11/04/2024 8:10 PM EDT [facility] Lymphocytes Absolute 1.46 1.20 - 3.90 10*3/uL LAB HEMATOLOGY METHOD 11/04/2024 8:10 PM EDT [facility] Monocytes Absolute 0.42 0.30 - 0.90 10*3/uL LAB HEMATOLOGY METHOD 11/04/2024 8:10 PM EDT [facility] Eosinophils Absolute 0.12 0.00 - 0.50 10*3/uL LAB HEMATOLOGY METHOD 11/04/2024 8:10 PM EDT [facility] Basophils Absolute 0.03 0.00 - 0.10 10*3/uL LAB HEMATOLOGY METHOD 11/04/2024 8:10 PM EDT [facility] Immature Granulocytes Absolute 0.01 0.00 - 0.06 10*3/uL LAB HEMATOLOGY METHOD 11/04/2024 8:10 PM EDT [facility] Blood Venous blood specimen / Unknown Venipuncture / Unknown 11/04/2024 4:54 PM EDT 11/04/2024 4:55 PM EDT Narrative [facility] - 11/04/2024 8:10 PM EDT Therapeutic decision making should be based on absolute values, rather than percentages. Rebekah TOTH LAB BLOOD ORDERABLES Final Resu lt Performing Organization Address City/[facility]/ZIP Co de Phone Number [facility] [address] [place] [address] * (ABNORMAL) Ammonia, Plasma (11/04/2024 4:54 PM EDT) Ammonia 58(H) 11 - 51 umol/L 11/04/2024 5:48 PM EDT [facility] Blood Venous blood specimen / Unknown Venipuncture / Unknown 11/04/2024 4:54 PM EDT 11/04/2024 4:55 PM EDT Rebekah TOTH LAB BLOOD ORDERABLES Final Resu lt Performing Organization Address City/[facility]/ZIP Co de Phone Number [facility] [address] [place] [address] * Alpha Fetoprotein, Serum (11/04/2024 4:54 PM EDT) Alpha Fetoprotein, Serum 7.8 <10.0 ng/mL 11/04/2024 6:29 PM EDT [facility] Blood Venous blood specimen / Unknown Venipuncture / Unknown 11/04/2024 4:54 PM EDT 11/04/2024 4:55 PM EDT Narrative [facility] - 11/04/2024 6:29 PM EDT Performed by Brandi electrochemiluminescent immunoassay which is traceable to the [address]st [facility] IRP WHO Reference standard 72/255. Results obtained with different test methods or kits cannot be used interchangeably. us Rebekah TOTH LAB BLOOD ORDERABLES Final Resu lt Performing Organization Address [facility] de Phone Number [facility] [address] [place] [address] * (ABNORMAL) Protime-INR (11/04/2024 4:54 PM EDT) Pathologist [facility] Prothrombin Time 18.0(H) 12.0 - 14.3 sec LAB COAGULATION METHOD 11/04/2024 6:15 PM EDT [facility] INR 1.5(H) 0.9 - 1.1 LAB COAGULATION METHOD 11/04/2024 6:15 PM EDT [facility] Blood Venous blood specimen / Unknown Venipuncture / Unknown 11/04/2024 4:54 PM EDT 11/04/2024 4:55 PM EDT Narrative [facility] - 11/04/2024 6:15 PM EDT OPTIMAL INR RANGES FOR PATIENT ON ORAL ANTICOAGULANT THERAPY Prevention of venous thromboembolism INR 2.0 to 3.0 In patients with heart disease: Atrial fibrillation INR 2.0 to 3.0 Valvular heart disease INR 2.0 to 3.0 Tissue heart valves INR 2.0 to 3.0 Mechanical prosthetic valves INR 2.5 to 3.5 Prevention of recurrent PA INR 2.5 to 3.5 us Rebekah TOTH LAB BLOOD ORDERABLES Final Resu lt Performing Organization Address [facility] Co de Phone Number [facility] [address] [phone] * (ABNORMAL) Comprehensive metabolic panel (11/04/2024 4:54 PM EDT) [facility] Signature Glucose, Plasma 74 74 - 99 mg/dL 11/04/2024 6:21 PM EDT [facility] BUN, Plasma 12 7 - 21 mg/dL 11/04/2024 6:21 PM EDT [facility] Creatinine, Plasma 0.82 0.60 - 1.10 mg/dL 11/04/2024 6:21 PM EDT [facility] BUN/Creatinine Ratio 15 11/04/2024 6:21 PM EDT [facility] Sodium, Plasma 141 136 - 145 mmol/L 11/04/2024 6:21 PM EDT [facility] Potassium, Plasma 4.3 3.6 - 4.9 mmol/L 11/04/2024 6:21 PM EDT [facility] Chloride, Plasma 109(H) 97 - 107 mmol/L 11/04/2024 6:21 PM EDT [facility] CO2, Plasma 20(L) 22 - 29 mmol/L 11/04/2024 6:21 PM EDT [facility] Anion Gap 12 6 - 16 mmol/L 11/04/2024 6:21 PM EDT [facility] Total Calcium, Plasma 9.5 8.9 - 10.2 mg/dL 11/04/2024 6:21 PM EDT [facility] Total Protein 7.8 6.3 - 7.9 g/dL 11/04/2024 6:21 PM EDT [facility] Albumin, Plasma 3.4(L) 3.5 - 5.2 g/dL 11/04/2024 6:21 PM EDT [facility] AST, Plasma 70(H) 10 - 35 U/L 11/04/2024 6:21 PM EDT [facility] Comment:Hemolyzed, result ma y be falsely increased. ALT, Plasma 30 10 - 35 U/L 11/04/2024 6:21 PM EDT [facility] Alkaline Phosphatase, Plasma 199(H) 46 - 142 U/L 11/04/2024 6:21 PM EDT [facility] Total Bilirubin, Plasma 0.9 0.2 - 1.1 mg/dL 11/04/2024 6:21 PM EDT [facility] eGFRcr 82.5 mL/min/1.7 3m*2 11/04/2024 6:21 PM EDT [facility] Comment:Reported eGFRcr in m L/min/1.73m2 is based the CKD-EPI 2020 equation that does not use a race coefficient. Blood Venous blood specimen / Unknown Venipuncture / Unknown 11/04/2024 4:54 PM EDT 11/04/2024 4:55 PM EDT us Rebekah TOTH LAB BLOOD ORDERABLES Final Resu lt [facility] [address] [place] [address] documented in this encounter Visit Diagnoses Diagnosis On methotrexate therapy- Primary Cirrhosis of liver without ascites, unspecified hepatic cirrhosis type (CMS/HCC) documented in this encounter Additional Health Concerns Active Problems Noted Date Diagnosed Date Autogenerated Problem 08/24/2024 Assessment Noted Time PHQ-9 Depression Total Score: 0 11/05/19 25 3:15 PM EDT A fall risk assessment has been complete d for the patient 11/04/2024 3:16 PM EDT A Body Mass Index follow-up plan has been documented for the patient 11/05/2024 11:52 AM EDT documented as of this encounter Care Teams Automobile Technician Relationship Specialty Start Date End Date Dru Giles MD PCP - General 11/21/21 documented as of this encounter
--- OUTSIDE RECORDS SUMMARY | 2024-11-11 09:48 | XMS_ITS | Encounter Summary ---
Author Organization Healthcare Address [address] [place] [address] Care Team Providers Care Compounder Name Role Phone Dru Giles MD Primary Care Provider Encounter Details Date Type Department Care Team (Late st Contact Info) Description 05/17/2024 Orders Only External Location [address] [place] [address] Provider, External Social History Tobacco Use Types [...] Description 11/15/2024 10:20 AM EDT Office Visit [facility] [address], [address] [place] [address] Melyssa Encinas PA [address] [place] [address] 12/29/2024 1:30 PM EDT Office Visit [facility] [address], [address] [place] [address] Jesus Tanner MD [address] [place] [address] 02/24/2025 3:00 PM EST Office Visit [facility] [address], [address] [place] [address] Rebekah Aragon PA [address] [place] [address] 02/28/2025 10:00 AM EST Office Visit [facility] [address], [address] [place] [address] Melyssa Encinas PA [address] [place] [address] 07/12/2025 11:00 AM EDT Ovarian Cancer Screening [facility] Gynecology [address] [facility], [address]rd [place] [address] documented as of this encounter Procedures Procedure [...] documented as of this encounter Care Teams Compounder Relationship Specialty Start Date End Date Dru Giles MD PCP - General 11/21/21 documented as of this encounter
--- OUTSIDE RECORDS SUMMARY | 2024-11-11 09:48 | XMS_ITS | Encounter Summary ---
Author Organization [facility] Address [address] [place] [address] Care Team Providers Care Communications Department Chair Name Role Phone Dru Giles MD Primary Care Provider Encounter Details Date Type Department Care Team (Late st Contact Info) Description 09/27/2024 Telephone [place] [facility] [address], [address] [place] [address] [place] [address] Social History Tobacco Use Types Packs/Day Years [...] if so, when to start them CB: [phone] documented in this encounter Plan of Treatment Upcoming Encounters Date Type Department Care Team (Late st Contact Info) Description 11/15/2024 10:20 AM EDT Office Visit [facility] Medicine Specialties [address], [address] [place] [address] Melyssa Encinas PA [address] [place] [address] 12/29/2024 1:30 PM EDT Office Visit [facility] Medicine Specialties [address], [address] [place] [address] Jesus Tanner MD [address] [place] [address] 02/24/2025 3:00 PM EST Office Visit [facility] Medicine Specialties [address], [address] [place] [address] Rebekah Aragon PA [address] [place] [address] 02/28/2025 10:00 AM EST Office Visit [facility] Medicine Specialties [address], [address]nd [place] [address] Melyssa Encinas PA [address] [place] [address] 07/12/2025 11:00 AM EDT Ovarian Cancer Screening [facility] Gynecology [address] [facility], 3rd [place] [address] documented as of this encounter Goals Goal [...] documented as of this encounter Care Teams Communications Department Chair Relationship Specialty Start Date End Date Dru Giels MD PCP - General 11/21/21 documented as of this encounter
--- OUTSIDE RECORDS SUMMARY | 2024-11-11 09:48 | XMS_ITS | Encounter Summary ---
Author Organization Healthcare Address [address] [place] [address] Care Team Providers Care Edge Inker Heels Name Role Phone Dru Giles MD Primary Care Provider [phone] Encounter Details Date Type Department Care Team (Latest Contact Info) Description 11/04/2024 Travel Social History Tobacco Use Types Packs/Day [...] things Not at all 11/04/2024 3:15 PM EDT Samantha Morataya CNA Feeling down, depressed, or hopeless Not at all 11/04/2024 3:15 PM Samantha Alamo CNA Patient Health Questionnaire -2 Score 0 11/04/2024 3:15 PM Samantha Alamo CNA * Question Answer Date of Assessment Author Trouble falling or staying asleep, or sleeping too much Not at all 11/04/2024 3:15 PM Renay Alamo CNA Feeling tired or having santos le energy Not at all 11/04/2024 3:15 PM Samantha Alamo CNA Poor appetite or overeating Not at all 11/04/2024 3: 15 PM Samantha Alamo CNA Feeling bad about yourself - or [...] Alamo CNA documented as of this encounter Plan of Treatment Upcoming Encounters Date Type Department Care Team (Late st Contact Info) Description 11/15/2024 10:20 AM EDT Office Visit [facility] Medicine Specialties [address], [address] [place] [address] Melyssa Encinas PA [address] [place] [address] 12/29/2024 1:30 PM EDT Office Visit [facility] [address], [address] [place] [address] Jesus Tanner MD [address] [place] [address] 02/24/2025 3:00 PM EST Office Visit [facility] [address], [address] [place] [address] Rebekah Aragon PA [address] [facility] [address] [place] [address] 02/28/2025 10:00 AM EST Office Visit [facility] [address], [address] [place] [phone] Melyssa Encinas PA [address] [place] [address] 07/12/2025 11:00 AM EDT Ovarian Cancer Screening [facility] [address] [facility], 3rd [place] [address] documented as of this encounter Goals Goal Patient Goal Type Associated Problems Recent Progress Patient-Stated? Author Autogenerat ed Goal Care Plan Autogenerated Problem No Dana Leiva documented as of this encounter Visit Diagnoses Not on filedocumented in this encounter Additional Health Concerns Active Problems Noted Date Diagnosed Date Autogenerated Problem 08/24/2024 Assessment Noted Time PHQ-9 Depression Total Score: 0 11/05/19 3:15 PM EDT A fall risk assessment has been complete d for the patient 11/04/2024 3:16 PM EDT A Body Mass Index follow-up plan has been documented for the patient 11/05/2024 11:52 AM EDT documented as of this encounter Care Teams Edge Inker Heels Relationship Specialty Start Date End Date Dru Giles MD PCP - General 11/21/21 documented as of this encounter
--- OUTSIDE RECORDS SUMMARY | 2024-11-11 09:48 | XMS_ITS | Encounter Summary ---
Author Organization [facility] Address [address] [place] [address] Care Team Providers Care Inside Wireman Name Role Phone Dru Giles MD Primary Care Provider [phone] Encounter Details Date Type Department Care Team (Late st Contact Info) Description 10/26/2024 Telephone [place] [facility] Medicine Specialties [address], [address] [place] [address] [place] [address] Social History Tobacco Use Types Packs/Day Years [...] encounter Miscellaneous Notes * Telephone Encounter - Corky Sutherland RN - 10/29/2024 10:59 AM EDT FYI * Telephone Encounter - Corky Sutherland RN - 10/29/2024 10:56 AM EDT S/W patient -She reports that the first day she increased lactulose to 30ml she had 2 good BM and 1 small BM (Friday or Friday) but she has not had any since -I recommended increasing to 30ml 4x/day to see if she gets better results -informed her that she may need to increase to 45ml if she doesn't get results -patient verbalized understanding, no questions * Telephone Encounter - Corky Sutherland RN - 10/29/2024 10:39 AM EDT Attempted to reach patient by phone, no answer * Telephone Encounter - Gabriella Machado - 10/29/2024 10:33 AM EDT Received call from patient Patient was calling clinic back Patient states that she is still having issues with her BM Patient states that she is taking 30mL of Lacutlose TID with no results Patient denies abd pain, nausea/vomiting Patient states that she feels like she is thinking fairly clear, but getting hung up on some wording Patient has follow up scheduled on 11/04 CB: [phone] * Telephone Encounter - Yesi Melgar - 10/27/2024 10:38 AM EDT Patient returned call I advised of recommendation to increase lactulose dose to 30 mL Patient verbalized understanding and said she would try that * Telephone Encounter - Corky Sutherland RN - 10/27/2024 10:33 AM EDT Left VM and CBN Recommend patient follow instructions on Lactulose (should be on the bottle) Can increase or decrease volume or frequency of dosing to have 1 BM daily or every other day -try taking 30ML versus 15ml * Telephone Encounter - Yesi Melgar - 10/26/2024 12:36 PM EDT Patient called to follow up as she hadn't heard anything CB: [phone] * Telephone Encounter - Yesi Melgar - 10/26/2024 9:09 AM EDT Patient called She was recently put on a new medication - xifaxan and lactulose She hasn't had a bowel movement in 4 days - she had a small one yesterday but it didn't really helpmuch She's wondering what she should do to help CB: [phone] documented in this encounter Plan of Treatment Upcoming Encounters Date Type Department Care Team (Late st Contact Info) Description 11/15/2024 10:20 AM EDT Office Visit [facility] Medicine Specialties [address], [address]nd [place] [address] Melyssa Encinas PA [address] [place] [address] 12/29/2024 1:30 PM EDT Office Visit [facility] Medicine Specialties [address], [address] [place] [address] Jesus Tanner MD [address] [place] [address] 02/24/2025 3:00 PM EST Office Visit [facility] Medicine Specialties [address], [address]nd [place] [address] Rebekah Aragon PA [address] [place] [address] 02/28/2025 10:00 AM EST Office Visit [facility] Medicine Specialties [address], [address] [place] [address] Melyssa Encinas PA [address] [facility] [address] [place] [address] 07/12/2025 11:00 AM EDT Ovarian Cancer Screening [facility] [address] [facility], 3rd [place] [address] documented as of this encounter Goals Goal [...] documented as of this encounter Care Teams Inside Wireman Relationship Specialty Start Date End Date Dru Giles MD PCP - General 11/21/21 documented as of this encounter
--- OUTSIDE RECORDS SUMMARY | 2024-11-11 09:48 | XMS_ITS | Encounter Summary ---
Author Organization Healthcare Address [address] [place] [address] Care Team Providers Care Box Inspector Name Role Phone Dru Giles MD Primary Care Provider [phone] Reason for Visit * Reason Onset Date Comments HCN - Patient Message 08/23/2024 Returning Call Returning call Encounter Details Date Type Department Care Team (Late st Contact Info) Description 08/23/2024 Telephone [facility] Medicine Specialties [address], [address] [place] [address] Melyssa Encinas PA [address] [place] [address] HCN - Patient Message (Returning [...] optimal time of day to reach caller: [phone] Note: Please do not reply to this [...] Description 11/15/2024 10:20 AM EDT Office Visit [facility] Medicine Specialties [address], [address] [place] [address] Melyssa Encinas PA [address] [place] [address] 12/29/2024 1:30 PM EDT Office Visit [facility] [address], [address] [place] [address] Jesus Tanner MD [address] [place] [address] 02/24/2025 3:00 PM EST Office Visit [facility] [address], [address] [place] [address] Rebekah Aragon PA [address] [place] [address] 02/28/2025 10:00 AM EST Office Visit [facility] Medicine Specialties [address], [address] [place] [address] Melyssa Encinas PA [address] [place] [address] 07/12/2025 11:00 AM EDT Ovarian Cancer Screening [facility] [address] [facility], 3rd [place] [address] documented as of this encounter Visit Diagnoses [...] documented as of this encounter Care Teams Box Inspector Relationship Specialty Start Date End Date Dru Giles MD PCP - General 11/21/21 documented as of this encounter
--- OUTSIDE RECORDS SUMMARY | 2024-11-11 09:48 | XMS_ITS | Encounter Summary ---
Author Organization Healthcare Address [address] [place] [address] Care Team Providers Care Senior Marketing Associate Name Role Phone Dru Giles MD Primary Care Provider [phone] Encounter Details Date Type Department Care Team (Late st Contact Info) Description 11/05/2024 Results Follow-Up [facility] Medicine Specialties [address], [address] [place] [address] Rebekah Aragon PA [address] [place] [address] Social History Tobacco Use Types [...] Description 11/15/2024 10:20 AM EDT Office Visit [facility] [address], [address] [place] [phone] Melyssa Encinas PA [address] [facility] [address] [place] [address] 12/29/2024 1:30 PM EDT Office Visit [facility] [address] [address] Jesus Tanner MD [address] [facility] [address] [place] [address] 02/24/2025 3:00 PM EST Office Visit [facility] [address] [phone] Rebekah Aragon PA [address] [facility] [address] [place] [address] 02/28/2025 10:00 AM EST Office Visit [facility] [address] [address] Melyssa Encinas PA [address] [facility] [address] [place] [phone] 07/12/2025 11:00 AM EDT Ovarian Cancer Screening [facility] [address] [facility], 3rd [place] [address] documented as of this encounter Goals Goal [...] documented as of this encounter Care Teams Senior Marketing Associate Relationship Specialty Start Date End Date Dru Giles MD PCP - General 11/21/21 documented as of this encounter
--- OUTSIDE RECORDS SUMMARY | 2024-11-11 09:48 | XMS_ITS | Encounter Summary ---
Author Organization Healthcare Address [address] [place] [address] Care Team Providers Care Program Or Project Administrator Name Role Phone Dru Giles MD Primary Care Provider [phone] Encounter Details Date Type Department Care Team (Late st Contact Info) Description 08/23/2024 Results Follow-Up [facility] Medicine Specialties [address], [address] [place] [address] Melyssa Encinas PA [address] [place] [address] Social History Tobacco Use Types [...] Description 11/15/2024 10:20 AM EDT Office Visit [facility] Medicine Specialties [address], [address] [place] [address] Melyssa Encinas PA [address] [place] [address] 12/29/2024 1:30 PM EDT Office Visit [facility] Medicine [facility] [address], [address] [place] [address] Jesus Tanner MD [address] [place] [address] 02/24/2025 3:00 PM EST Office Visit [facility] Medicine Specialties [address], [address] [place] [address] Rebekah Aragon PA [address] [place] [address] 02/28/2025 10:00 AM EST Office Visit [facility] [address], [address] [place] [address] Melyssa Encinas PA [address] [place] [address] 07/12/2025 11:00 AM EDT Ovarian Cancer Screening [facility] Gynecology [address] [place] [phone] documented as of this encounter Visit Diagnoses [...] documented as of this encounter Care Teams Program Or Project Administrator Relationship Specialty Start Date End Date Dru Giles MD PCP - General 11/21/21 documented as of this encounter
--- OUTSIDE RECORDS SUMMARY | 2024-11-11 09:48 | XMS_ITS | Encounter Summary ---
Author Organization [facility] Address [address] [place] [address] Care Team Providers Care Transcripter Name Role Phone Dru Giles MD Primary Care Provider Encounter Details Date Type Department Care Team (Late st Contact Info) Description 11/01/[address] Medicine Specialties [address] [place] [phone] [place] [address] Social History Tobacco Use Types Packs/Day Years [...] * Telephone Encounter - Yesi Melgar - 11/01/2024 12:53 PM EDT Patient called returning a call I advised it may have been to confirm her upcoming appointment on , but that I would confirm CB: [phone] documented in this encounter Plan of Treatment Upcoming Encounters Date Type Department Care Team (Late st Contact Info) Description 11/15/2024 10:20 AM EDT Office Visit [facility] Medicine Specialties [address], [address] [place] [address] Melyssa Encinas PA [address] [place] [address] 12/29/2024 1:30 PM EDT Office Visit [facility] Medicine Specialties [address], [address] [place] [address] Jesus Tanner MD [address] [place] [address] 02/24/2025 3:00 PM EST Office Visit [facility] [address] [place] [address] Rebekah Aragon PA [address] [place] [address] 02/28/2025 10:00 AM EST Office Visit [facility] Medicine Specialties [address], [address] [place] [address] Melyssa Encinas PA [address] [place] [address] 07/12/2025 11:00 AM EDT Ovarian Cancer Screening [facility] Gynecology [address] [facility], [address]rd [place] [address] documented as of this encounter Goals Goal [...] documented as of this encounter Care Teams Transcripter Relationship Specialty Start Date End Date Dru Giles MD PCP - General 11/21/21 documented as of this encounter
--- OUTSIDE RECORDS SUMMARY | 2024-11-11 09:48 | XMS_ITS | Clinical Summary ---
Author Organization [facility] Address [address] [place] [address] Care Team Providers Care Eap Specialist Name Role Phone Dru Giles MD Primary Care Provider [phone] Allergies Active Allergy Reactions Criticality Noted Date Comments Bee Venom Anaphylaxis High 04/03/2023 Compleat Other - please document in the comment field,Hives High 09/08/2023 Diphth-Acell Pertussis-Tetanus Other - please document in the comment field Low 09/08/2023 Dtap-Hepatitis B Recomb-Ipv Other - please document in the comment field Low 04/03/2023 Znyy-Owi-Lxs-Hepatitis B Recmb Other - please document in [...] Hives High 04/03/2023 Medications ergocalciferol 1.25 MG (45529 UT) capsule Take 1 capsule by mouth 1 time per week. Active montelukast (Singulair) 10 MG tablet Take 1 tablet by mouth nightly. Active valsartan (Diovan) 320 MG tablet Take 1 tablet by mouth every morning. Down to 160 Active Multiple Vitamins-Mineral s (EQ One Daily JK-Group Cytomedix) tablet Take 1 tablet by mouth daily. Active ferrous sulfate 325 (65 Fe) MG EC tabletIndication s:Anemia, unspecified type TAKE 1 TABLET BY MOUTH 1 (ONE) TIME EACH DAY WITH BREAKFAST. DO NOT CRUSH, CHEW, OR SPLIT. 90 tablet 2 Active traMADol (Ultram) 50 MG tablet at night if needed. Active ProAir HFA 108 (90 Base) MCG/ACT inhaler if needed. Active Breo Ellipta 200-25 MCG/ACT aerosol powder 1 (one) time each day. Active fluticasone (Flonase) 50 MCG/ACT nasal spray 1 spray daily. Active EPINEPHrine (AUVI-Q) 0.15 mg/0.15 mL IJ solution auto-injector injection Inject 0.0225 mL (0.0225 mg) into the muscle if needed for anaphylaxis. Active azelastine (Astelin) 0.1 % nasal spray 07/14/2 023 Active Horizant 600 MG tablet controlled-relea se ER tablet 024 Active ketotifen (Zaditor) 0.035 % ophthalmic solution 023 Active Glucagon, rDNA, (Glucagon Emergency) 1 MG kit 023 Active meclizine (Antivert) 25 MG tablet 1 tablet. 023 Active ondansetron (Zofran) 4 MG tablet 1 tablet (4 mg). 024 Active Zegalogue 0.6 MG/0.6ML solution auto-injector USE DIRECTED NEEDED with epipen FOR anaphylactic reactions Active triamcinolone (Kenalog) 0.1 % cream apply a SMALL AMOUNT topically TO THE affected area(s) TWICE DAILY FOR ITCHING OR RASH avoid USE ON face, groin, OR arm pits 025 Active pantoprazole (Protonix) 40 MG EC tabletIndication s:Gastroesophage al reflux disease, unspecified whether esophagitis present Take 1 tablet by mouth daily before breakfast. Do not crush, chew, or split. 90 tablet 3 025 Active methotrexate 2.5 MG tabletIndication s:Inflammatory polyarthritis (CMS/HCC) Take 4 tablets (10 mg total) by mouth 1 time per week. Follow directions carefully, and ask to explain any part you do not understand. Take exactly as directed. 68 tablet 025 2024 Active folic acid (Folvite) 1 MG tabletIndication s:Inflammatory polyarthritis (CMS/HCC),High risk medication use Take 1 tablet by mouth daily. 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 0.8 each 3 025 Active Nystop 126859 UNIT/GM powder apply topically to the affected area(s) three times daily Active lactulose (Chronulac) 10 GM/15ML oral solution Take 15 mL by mouth 3 times a day. Can increase or decrease volume or frequency of dosing to have 1 BM daily or every other day 1350 mL 2 025 2024 Active rifAXIMin (Xifaxan) 550 MG tabletIndication s:Decompensated cirrhosis (CMS/HCC) Take 1 tablet by mouth 2 times a day. 60 tablet 11 025 2025 Active linaCLOtide (Linzess) 72 MCG capsule capsule Take 1 capsule by mouth daily. 30 capsule 11 025 2025 Active metoclopramide (Reglan) 5 MG tablet Take 1 tablet (5 mg) by mouth 1 (one) time each day in the morning. 021 2024 Discontinued(P er Patient Report) cetirizine (ZyrTEC) 10 MG tablet 023 2024 Discontinued(P er Patient Report) levocetirizine (Xyzal) 5 MG tablet 024 2024 Discontinued(P er Patient Report) linaCLOtide (Linzess) 145 MCG capsuleIndicatio ns:Chronic constipation Take 1 capsule (145 mcg) by mouth 1 (one) time each day before breakfast. 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 04/29/2023 04/19/2024 Unspecified urinary incontinence 04/23/2023 04/19/2024 Cirrhosis of liver without ascites 07/13/2022 10/08/2024 Encounters Date Type Department Care Team Description 11/05/2024 Results Follow-Up [facility]ties [address], [address] [place] [address] Rebekah Aragon PA 11/04/2024 3:40 PM EDT Office Visit [facility] [address], [address] [place] [address] Rebekah Aragon PA On methotrexate therapy (Primary Dx); Cirrhosis of liver without ascites, unspecified hepatic cirrhosis type (CMS/HCC) 11/04/2024 Travel 11/01/2024 Telephone [facility] [address], [address] [place] [address] Yesi Melgar 10/26/2024 Telephone [facility] [address], [address] Floor [facility] [place] [address] Yesi Melgar 10/24/2024 Results Follow-Up [facility] [address], [address] [place] [address] Ari Barfield MD 10/14/2024 12:41 PM EDT Anesthesia Event [facility] [address] [place] [phone] Alverto Barney MD 10/14/2024 11:56 AM EDT - 10/14/2024 11:59 PM EDT Hospital Encounter [facility] [address] [place] [address] Alverto Barney MD Konjeti, Venkata Rajesh, MD Wellman, Tyler M, CRNA Guagenti, Patricia L Gastroesophageal reflux disease, unspecified whether esophagitis present; History of cirrhosis; Bilious vomiting with nausea Discharge Disposition: Home or Self Care 10/14/2024 Travel 10/07/2024 1:20 PM EDT Office Visit [facility] [address], [address] [place] [address] Rebekah Aragon PA Decompensated cirrhosis (CMS/HCC) (Primary Dx); Liver lesion; High risk medication use; Elevated liver enzymes; Other ascites; Hepatic encephalopathy (CMS/HCC) 10/07/2024 Travel 09/29/2024 Telephone [facility] [address], [address] [place] [address] Rebekah Aragon PA HCN - Patient Message 09/27/2024 Telephone [facility] [address], [address] [place] [address] Yesi Melgar 09/21/2024 Telephone [facility] [address], [address] [place] [phone] Jesus Tanner MD 09/20/2024 1:30 PM EDT Office Visit [facility] [address], [address] [place] [address] Jesus Tanner MD Inflammatory polyarthritis (CMS/HCC); High risk medication use 09/20/2024 Telephone [facility] [address], [address] [place] [address] Guille Escobar 09/20/2024 Travel 08/31/2024 Telephone [facility] [address], [address] [place] [address] Una Gibbons RN 08/27/2024 Telephone [facility] [address], [address] [place] [address] Rekha Rodas RN 08/27/2024 Telephone [facility] Specialties [address], [address] [place] [address] Jesus Tanner MD 08/24/2024 Telephone [facility] Specialties [address], [address]nd [place] [address] Yesi Melgar 08/23/2024 10:00 AM EDT Office Visit [facility] Specialties [address], [address] Floor [facility] [place] [address] Melyssa Encinas PA Gastroesophageal reflux disease, unspecified whether esophagitis present (Primary Dx); Chronic constipation; History of cirrhosis; Bilious vomiting with nausea 08/23/2024 Telephone [facility] Specialties [address], [facility] [place] [phone] Melyssa Encinas PA HCN - Patient Message (Returning Call /Returning call ) 08/23/2024 Results Follow-Up [facility] Specialties [address], [address] Floor [facility] [place] [phone] Melyssa Encinas PA 08/23/2024 Orders Only [facility] Specialties [address], [facility] Floor [facility] [address] Melyssa Encinas PA Normocytic anemia (Primary Dx) 08/23/2024 Travel 08/20/2024 Telephone [facility] Specialties [address], [address] Floor [facility] [phone] Rekha Rodas, SOM 08/20/2024 Telephone [facility] Specialties [address], [facility] Floor [facility] [address] Jesus Tanner MD from Last 3 Months Immunizations Immunization Administration [...] Les Hypertension Brother 3 Shemar and Les Frymyifan Diabetes Father Pneumonia Maternal Grandfather No Known [...] F) 11/04/2024 3:13 PM EDT Respiratory Rate 17 10/14/2024 1:20 PM EDT Oxygen Saturation 98% 11/04/2024 3:13 PM EDT Inhaled Oxygen Concentration - - Weight 132 kg (291 lb 7.2 oz) 11/04/2024 3:13 PM EDT Height 170.2 cm (5' 7 ) 11/04/2024 3:13 PM EDT Body Mass Index 45.65 11/04/2024 3:13 PM EDT Plan of Treatment Upcoming Encounters Date Type Department Care Team (Late st Contact Info) Description 11/15/2024 10:20 AM EDT Office Visit [facility]ties [address], [address] [place] [address] Melyssa Encinas PA [address] [place] [address] 12/29/2024 1:30 PM EDT Office Visit [facility] Specialties [address], [address] [place] [address] Jesus Tanner MD [address] [place] [address] 02/24/2025 3:00 PM EST Office Visit [facility] Specialties [address], [address] [place] [address] Rebekah Aragon PA [address] [place] [address] 02/28/2025 10:00 AM EST Office Visit [facility] [address], [address] [place] [address] Melyssa Encinas PA [address] [place] [address] 07/12/2025 11:00 AM EDT Ovarian Cancer Screening [facility] [address] [place] [phone] Health Maintenance Due Date Last Done Comments [...] (2 of 2 - PCV) 02/19/2023 02/19/2022 [id number] Vaccine ( season) 2024 12/12/2021, 01/03/2021, 06/07/2020, Additional history exists [facility]-Influenza Vaccine (#1) 11/08/202412/17, 01/01/2023, 01/04/2022, Additional history exists [facility]-Depression Screening 11/04/2025 11/04/2024, 08/10/2024 Colonoscopy 06/01/2031 05/31/2021 [facility]-Colorectal Cancer Screening 06/01/2031 [facility]-DTaP,Tdap,and Td Vaccines (2 - Td or Tdap) 09/24/2034 09/24/2024 [facility]-Diabetes: Hemoglobin A1C Discontinued 03/28/2022, 10/06/2020 [facility]-Hepatitis C Screening Completed 2024, 03/28/2022, 08/24/2021, Additional history exists [facility]-HIV Screening Completed 05/27/2024, 10/02/2020 [facility]-RSV Vaccine: 60+ Years or Discontinued 09/23/2024 [facility]-Zoster Vaccines Completed 09/23/2024, 05/08/2023, 10/24/2022 [facility]-Obesity Intervention Completed 025, 10/07/2024, 09/20/2024, Additional history exists HPV Vaccines Aged Out [...] Care Plan Autogenerated Problem No Dana Leiva Procedures Procedure Name Priority Date/Time Associated Diagnosis Comments COMPREHENSIVE METABOLIC PANEL, PLASMA Routine 11/04/2024 4:54 PM EDT On methotrexate therapy Cirrhosis of liver without ascites, unspecified hepatic cirrhosis type (CMS/HCC) PROTHROMBIN TIME(PT) / INR Routine 11/04/2024 4:54 PM EDT On methotrexate therapy Cirrhosis of liver without ascites, unspecified hepatic cirrhosis type (CMS/HCC) ALPHA FETOPROTEIN, SERUM Routine 11/04/2024 4:54 PM EDT On methotrexate therapy Cirrhosis of liver without ascites, unspecified hepatic cirrhosis type (CMS/HCC) AMMONIA, PLASMA Routine 11/04/2024 4:54 PM EDT On methotrexate therapy Cirrhosis of liver without ascites, unspecified hepatic cirrhosis type (CMS/HCC) CBC WITH AUTO DIFFERENTIAL Routine 11/04/2024 4:54 PM EDT On methotrexate therapy Cirrhosis of liver without ascites, unspecified hepatic cirrhosis type (CMS/HCC) EGD Routine 10/14/2024 1:00 PM EDT Gastroesophageal [...] Recently Relevant to Health Maintenance Results * Alpha Fetoprotein, Serum (11/04/2024 4:54 PM EDT) Only the most recent of2 resultswithin the time period is included. Alpha Fetoprotein, Serum 7.8 <10.0 ng/mL 11/04/2024 6:29 PM EDT [facility] Blood Venous blood specimen / Unknown Venipuncture / Unknown 11/04/2024 4:54 PM EDT 11/04/2024 4:55 PM EDT Narrative [facility] - 11/04/2024 6:29 PM EDT Performed by Brandi electrochemiluminescent immunoassay which is traceable to the 1st AFP IRP WHO Reference standard 72/255. Results obtained with different test methods or kits cannot be used interchangeably. us Rebekah TOTH LAB BLOOD ORDERABLES Final Resu lt [facility] [address] [place] [address] * (ABNORMAL) Protime-INR (11/04/2024 4:54 PM EDT) Only the most recent of2 resultswithin the time period is included. Pathologist [facility] Prothrombin Time 18.0(H) 12.0 - 14.3 sec LAB COAGULATION METHOD 11/04/2024 6:15 PM EDT [facility] INR 1.5(H) 0.9 - 1.1 LAB COAGULATION METHOD 11/04/2024 6:15 PM EDT [facility] Blood Venous blood specimen / Unknown Venipuncture / Unknown 11/04/2024 4:54 PM EDT 11/04/2024 4:55 PM EDT Narrative [facility] - 11/04/2024 6:15 PM EDT OPTIMAL INR RANGES FOR PATIENT ON ORAL ANTICOAGULANT THERAPY Prevention of venous thromboembolism INR 2.0 to 3.0 In patients with heart disease: Atrial fibrillation INR 2.0 to 3.0 Valvular heart disease INR 2.0 to 3.0 Tissue heart valves INR 2.0 to 3.0 Mechanical prosthetic valves INR 2.5 to 3.5 Prevention of recurrent NM INR 2.5 to 3.5 us Rebekah TOTH LAB BLOOD ORDERABLES Final Resu lt [facility] [address] [place] [address] * (ABNORMAL) CBC and differential (11/04/2024 4:54 PM EDT) Only the most recent of3 resultswithin the time period is included. WBC Count 4.60 3.70 - 10.30 10*3/uL LAB HEMATOLOGY METHOD 11/04/2024 8:10 PM EDT [facility] RBC Count 3.73(L) 3.90 - 5.20 10*6/uL LAB HEMATOLOGY METHOD 11/04/2024 8:10 PM EDT [facility] HGB 11.1(L) 11.2 - 15.7 g/dL LAB HEMATOLOGY METHOD 11/04/2024 8:10 PM EDT [facility] HCT 36.3 34.0 - 45.0 % LAB HEMATOLOGY METHOD 11/04/2024 8:10 PM EDT [facility] Platelet Count 77(L) 155 - 369 10*3/uL LAB HEMATOLOGY METHOD 11/04/2024 8:10 PM EDT [facility] MCV 97 79 - 98 fL LAB HEMATOLOGY METHOD 11/04/2024 8:10 PM EDT [facility] MCH 29.8 26.0 - 32.0 pg LAB HEMATOLOGY METHOD 11/04/2024 8:10 PM EDT [facility] MCHC 30.6(L) 30.7 - 35.5 g/dL LAB HEMATOLOGY METHOD 11/04/2024 8:10 PM EDT [facility] RDW 13.3 11.5 - 14.5 % LAB HEMATOLOGY METHOD 11/04/2024 8:10 PM EDT [facility] MPV 11.2 8.8 - 12.5 fL LAB HEMATOLOGY METHOD 11/04/2024 8:10 PM EDT [facility] nRBC 0.0 <=0.0 per 100 WBCs LAB HEMATOLOGY METHOD 11/04/2024 8:10 PM EDT [facility] Differential Type Automated LAB HEMATOLOGY METHOD 11/04/2024 8:10 PM EDT [facility] Neutrophils % 55 % LAB HEMATOLOGY METHOD 11/04/2024 8:10 PM EDT [facility] Lymphocytes % 32 % LAB HEMATOLOGY METHOD 11/04/2024 8:10 PM EDT [facility] Monocytes % 9 % LAB HEMATOLOGY METHOD 11/04/2024 8:10 PM EDT [facility] Eosinophils % 3 % LAB HEMATOLOGY METHOD 11/04/2024 8:10 PM EDT [facility] Basophils % 1 % LAB HEMATOLOGY METHOD 11/04/2024 8:10 PM EDT [facility] Immature Granulocytes % 0 % LAB HEMATOLOGY METHOD 11/04/2024 8:10 PM EDT [facility] Neutrophils Absolute 2.56 1.60 - 6.10 10*3/uL LAB HEMATOLOGY METHOD 11/04/2024 8:10 PM EDT [facility] Lymphocytes Absolute 1.46 1.20 - 3.90 10*3/uL LAB HEMATOLOGY METHOD 11/04/2024 8:10 PM EDT [facility] Monocytes Absolute 0.42 0.30 - 0.90 10*3/uL LAB HEMATOLOGY METHOD 11/04/2024 8:10 PM EDT [facility] Eosinophils Absolute 0.12 0.00 - 0.50 10*3/uL LAB HEMATOLOGY METHOD 11/04/2024 8:10 PM EDT [facility] Basophils Absolute 0.03 0.00 - 0.10 10*3/uL LAB HEMATOLOGY METHOD 11/04/2024 8:10 PM EDT [facility] Immature Granulocytes Absolute 0.01 0.00 - 0.06 10*3/uL LAB HEMATOLOGY METHOD 11/04/2024 8:10 PM EDT [facility] Blood Venous blood specimen / Unknown Venipuncture / Unknown 11/04/2024 4:54 PM EDT 11/04/2024 4:55 PM EDT Narrative [facility] - 11/04/2024 8:10 PM EDT Therapeutic decision making should be based on absolute values, rather than percentages. Rebekah TOTH LAB BLOOD ORDERABLES Final Resu lt Performing Organization Address [facility]/ZIP Co de Phone Number [facility] [address] [place] [address] * (ABNORMAL) Ammonia, Plasma (11/04/2024 4:54 PM EDT) Ammonia 58(H) 11 - 51 umol/L 11/04/2024 5:48 PM EDT [facility] Blood Venous blood specimen / Unknown Venipuncture / Unknown 11/04/2024 4:54 PM EDT 11/04/2024 4:55 PM EDT Rebekah TOTH LAB BLOOD ORDERABLES Final Resu lt [facility] [address] [place] [address] * (ABNORMAL) Comprehensive metabolic panel (11/04/2024 4:54 PM EDT) Only the most recent of3 resultswithin the time period is included. Glucose, Plasma 74 74 - 99 mg/dL 11/04/2024 6:21 PM EDT [facility] BUN, Plasma 12 7 - 21 mg/dL 11/04/2024 6:21 PM EDT [facility] Creatinine, Plasma 0.82 0.60 - 1.10 mg/dL 11/04/2024 6:21 PM EDT [facility] BUN/Creatinine Ratio 15 11/04/2024 6:21 PM EDT [facility] Sodium, Plasma 141 136 - 145 mmol/L 11/04/2024 6:21 PM EDT [facility] Potassium, Plasma 4.3 3.6 - 4.9 mmol/L 11/04/2024 6:21 PM EDT [facility] Chloride, Plasma 109(H) 97 - 107 mmol/L 11/04/2024 6:21 PM EDT [facility] CO2, Plasma 20(L) 22 - 29 mmol/L 11/04/2024 6:21 PM EDT [facility] Anion Gap 12 6 - 16 mmol/L 11/04/2024 6:21 PM EDT [facility] Total Calcium, Plasma 9.5 8.9 - 10.2 mg/dL 11/04/2024 6:21 PM EDT [facility] Total Protein 7.8 6.3 - 7.9 g/dL 11/04/2024 6:21 PM EDT [facility] Albumin, Plasma 3.4(L) 3.5 - 5.2 g/dL 11/04/2024 6:21 PM EDT [facility] AST, Plasma 70(H) 10 - 35 U/L 11/04/2024 6:21 PM EDT [facility] Comment:Hemolyzed, result ma y be falsely increased. ALT, Plasma 30 10 - 35 U/L 11/04/2024 6:21 PM EDT [facility] Alkaline Phosphatase, Plasma 199(H) 46 - 142 U/L 11/04/2024 6:21 PM EDT [facility] Total Bilirubin, Plasma 0.9 0.2 - 1.1 mg/dL 11/04/2024 6:21 PM EDT [facility] eGFRcr 82.5 mL/min/1.7 3m*2 11/04/2024 6:21 PM EDT [facility] Comment:Reported eGFRcr in m L/min/1.73m2 is based the CKD-EPI 2020 equation that does not use a race coefficient. Blood Venous blood specimen / Unknown Venipuncture / Unknown 11/04/2024 4:54 PM EDT 11/04/2024 4:55 PM EDT Rebekah TOTH LAB BLOOD ORDERABLES Final Resu lt Performing Organization Address City/State/[facility] Co de Phone Number [facility] [address] [place] [address] * EGD (10/14/2024 1:00 PM EDT) Anatomical [...] Ari Barfield MD Proceduralist Reji Dewey Endo Cross Tie Tram Loader Israel Murrell CRNA BISQUE TILE BURNER Preprocedure A history and physical has been [...] PM EDT) Case Report Surgical Pathology Case: [id number] Authorizing Provider: Ari Barfield, Collected: 10/14/2024 1253 MD Ordering Location: [facility] Endoscopy Received: 10/14/2024 1416 Pathologist: Bubba Bryan MD Specimen: Stomach, biopsy 10/15/2024 4:[address] [facility] Final Diagnosis STOMACH, BIOPSY: - REACTIVE GASTROPATHIC CHANGES - NO EVIDENCE OF HELICOBACTER-LIKE ORGANISMS ON ROUTINE STAIN 10/15/2024 4:29 PM EDT [facility] at 1629 EDT Clinical Information [...] duodenum appeared normal. 10/15/2024 4:29 PM EDT [facility] Gross Description A. BIOPSY Received in formalin labeled b iopsy, stomach , are 2 pink-white soft fragments of tissue measuring from 0.3 cm to 0.6 cm in greatest dimension. Entirely submitted in cassette A1. Cold Time: 1m Lakisha Dubois 10/15/2024 4:29 PM EDT [facility] Note: A resident was involved in the service. I attest I examined the relevant preparations for the specimens and confirmed the diagnosis or interpretation. 10/15/2024 4:29 PM EDT [facility] Tissue Stomach structure / Unknown 10/14/2024 12:53 PM EDT 10/14/2024 2:16 PM EDT Ari Barfield MD LAB PATHOLOGY ORDERABL ES Final Result Performing Organization Address City/[facility]/ZIP Co de Phone Number [facility] [address] [place] [address] * (ABNORMAL) Sedimentation Rate, Automated (09/20/2024 2:05 PM EDT) Only the most recent of2 resultswithin the time period is included. Sedimentation Rate 58(H) <30 mm/hr 2024 3:19 PM EDT [facility] Blood Venous blood specimen / Unknown Venipuncture / Unknown 09/20/2024 2:05 PM EDT 09/20/2024 2:05 PM EDT Jesus Tanner MD LAB BLOOD ORDERABLES Final Re sult Performing Organization Address City/[facility]/ZIP Co de Phone Number [facility] [address] [place] [address] * C-reactive protein (09/20/2024 2:05 PM EDT) Only the most recent of2 resultswithin the time period is included. CRP, Plasma 6.7 <=8.0 mg/L 09/20/2024 3:14 PM EDT [facility] Blood Venous blood specimen / Unknown Venipuncture / Unknown 09/20/2024 2:05 PM EDT 09/20/2024 2:05 PM EDT Narrative [facility] - 09/20/2024 3:14 PM EDT This CRP test is appropriate for assessment of infection, systemic inflammation and/or tissue injury. To assess cardiovascular disease risk order high sensitivity CRP (CRPH). us Jesus Tanner MD LAB BLOOD ORDERABLES Final Re sult Performing Organization Address City/[facility]/ZIP Co de Phone Number [facility] [address] [place] [address] * (ABNORMAL) Iron & Total Iron Binding Capacity, Plasma (Includes Transferrin) (08/23/2024 10:38 AM EDT) [facility] Iron, Plasma 43 30 - 160 ug/dL 08/23/2024 1:07 PM EDT [facility] Transferrin, Plasma 187(L) 200 - 360 mg/dL 08/23/2024 1:07 PM EDT [facility] Total Iron Binding Capacity, Plasma 234(L) 240 - 450 ug/mL 08/23/2024 1:07 PM EDT [facility] Transferrin Saturation 18 14 - 50 % 08/23/2024 1:07 PM EDT [facility] Blood Venous blood specimen / Unknown Venipuncture / Unknown 08/23/2024 10:38 AM EDT 08/23/2024 10:39 AM EDT us Melyssa TOTH LAB BLOOD ORDERABLES Final Resu lt Performing Organization Address [facility]/State/ZIP Co de Phone Number [facility] [facility] [address] [place] [address] * Folate (08/23/2024 10:38 AM EDT) [facility] Signature Folate, Serum >20.0 >4.6 ng/mL 08/23/2024 1:31 PM EDT [facility] Blood Venous blood specimen / Unknown Venipuncture / Unknown 08/23/2024 10:38 AM EDT 08/23/2024 10:39 AM EDT us Melyssa TOTH LAB BLOOD ORDERABLES Final Resu lt Performing Organization Address City/[facility]/ZIP Co de Phone Number [facility] [address] [place] [address] * (ABNORMAL) Ferritin (08/23/2024 10:38 AM EDT) Ferritin, Serum 456(H) 13 - 150 ng/mL 08/23/2024 11:54 AM EDT [facility] Blood Venous blood specimen / Unknown Venipuncture / Unknown 08/23/2024 10:38 AM EDT 08/23/2024 10:39 AM EDT Jesus Tanner MD LAB BLOOD ORDERABLES Final Re sult Performing Organization Address [facility]/ZIP Co de Phone Number [facility] [address] [place] [address] * Vitamin B12 (08/23/2024 10:38 AM EDT) Vitamin B12, Serum 762 210 - 1,033 pg/mL 08/23/2024 1:31 PM EDT [facility] Blood Venous blood specimen / Unknown Venipuncture / Unknown 08/23/2024 10:38 AM EDT 08/23/2024 10:39 AM EDT us Melyssa TOTH LAB BLOOD ORDERABLES Final Resu lt Performing Organization Address City/[facility]/[place] [address] * HIV 1 & 2 Antibody/Antigen Screen (05/27/2024 1:38 PM EDT) HIV 1 & 2 Antibody/Antigen Screen Non Reactive Non Reactive 05/27/2024 2:56 PM EDT [facility] Comment:Screening for HIV 1 & 2 antibodies, and P24 antigen is NONREACTIVE. No confirmatory testing is required. Blood Venous blood specimen / Unknown Venipuncture / Unknown 05/27/2024 1:38 PM EDT 05/27/2024 1:41 PM EDT Marv Brown MD LAB BLOOD ORDERABLES Final Res ult Performing Organization Address [facility] Co de Phone Number [facility] [address] [place] [address] * Hepatitis C Antibody (04/19/2024 3:28 PM EST) Hepatitis C Antibody Negative Negative 04/19/2024 5:40 PM EST [facility] Blood Venous blood specimen / Unknown Venipuncture / Unknown 04/19/2024 3:28 PM EST 04/19/2024 3:29 PM EST Jesus Tanner MD LAB BLOOD ORDERABLES Final Re sult Performing Organization Address City/[facility] Co de Phone Number [facility] [address] [place] [address] * Hemoglobin A1c (03/28/2022 12:04 PM EST) Pathologist [facility] Hemoglobin A1c 5.5 <5.7 % 03/28/2022 2:10 PM EST [facility] Blood Venous blood specimen / Unknown Venipuncture / Unknown 03/28/2022 12:04 PM EST 03/28/2022 12:05 PM EST Narrative [facility] - 03/28/2022 2:10 PM EST HA1C Interpretive Data: Diagnosis of Diabetes: Diabetic > or = 6.5% Pre-diabetic 5.7 to 6.4% Non-diabetic < or = 5.6% Glycemic Targets for Type I and Type II Diabetics: Non- Adults <7.0% Adults <6.0% Children and Adolescents <7.5% Source: [place] Diabetes Association. Standards of medical care in diabetes,2017. Diabetes Care.2017:40 (suppl 1):S1-S135. HbA1c assay performed by an ion-exchange chromatography method that is certified traceable to the [facility] us Rebekah TOTH LAB BLOOD ORDERABLES Final Resu lt [facility] [address] [place] [address] * Colonoscopy (05/31/2021 8:36 AM EDT) Anatomical [...] of bowel preparation was evaluated using the [place] Bowel Preparation Scale with scores of: right [...] Date Diagnosed Date Autogenerated Problem 08/24/2024 Insurance [employer] MEDICARE Advance Directives * Full Code (Latest Code Status on File) Date Activated Date Inactivated Comments 04/05/2022 11:15 AM 04/06/2022 2:46 AM Question Answer Comments Patient has decision-making capacity? Yes * Full Code Date Activated Date Inactivated Comments 10/02/2020 12:39 PM 10/19/2020 8:02 PM Question Answer Comments Patient has decision-making capacity? Yes Care Teams Eap Specialist Relationship Specialty Start Date End Date Dru Giles MD PCP - General 11/21/21
--- OUTSIDE RECORDS SUMMARY | 2024-11-11 09:48 | XMS_ITS | Encounter Summary ---
Author Organization Healthcare Address [address] [place] [id number] Care Team Providers Care Import Coordinator Name Role Phone Dru Giles MD Primary Care Provider [phone] Reason for Visit * Reason Onset Date Comments HCN - Patient Message 09/29/2024 Encounter Details Date Type Department Care Team (Late st Contact Info) Description 09/29/2024 Telephone [facility] [address], [address] [place] [address] Rebekah Aragon, JANEY [address] [place] [address] HCN - Patient Message Social [...] fasting for 10/07 appointment Best contact number: [phone] (home) Optimal time of day to reach caller: ANYTIME Additional comments/information from caller: Note: Please do not reply to this message. Follow-up communication and further actions as a result of this message need to be communicated with the patient directly, if the patient is not active onMyChart. If the patient is active on MyChart, they will receive notification of the communication/outcome via Dashride. documented in this encounter Plan of Treatment Upcoming Encounters Date Type Department Care Team (Late st Contact Info) Description 11/15/2024 10:20 AM EDT Office Visit [facility] [address], [address]nd [place] [address] Melyssa Encinas PA [address] [place] [address] 12/29/2024 1:30 PM EDT Office Visit [facility] [address] [address] Jesus Tanner MD [address] [place] [address] 02/24/2025 3:00 PM EST Office Visit [facility] [address], [address] [place] [address] Rebekah Aragon PA [address] [place] [address] 02/28/2025 10:00 AM EST Office Visit [facility] [address] [address] Melyssa Encinas PA [address] [place] [address] 07/12/2025 11:00 AM EDT Ovarian Cancer Screening [facility] 800 [facility], 3rd [place] [address] documented as of this encounter Goals Goal [...] documented as of this encounter Care Teams Import Coordinator Relationship Specialty Start Date End Date Dru Giles MD PCP - General 11/21/21 documented as of this encounter
--- OUTSIDE RECORDS SUMMARY | 2024-11-11 09:48 | XMS_ITS | Encounter Summary ---
Author Organization Healthcare Address [address] [place] [address] Care Team Providers Care Video Tape Transferrer Name Role Phone Dru Giles MD Primary Care Provider [phone] Encounter Details Date Type Department Care Team (Late st Contact Info) Description 05/06/2024 Orders Only External Location [address] [place] [address] Provider, External Social History Tobacco Use Types [...] Description 11/15/2024 10:20 AM EDT [facility] [address], [address] [place] [address] Melyssa Encinas PA [address] [place] [address] 12/29/2024 1:30 PM EDT Office Visit [facility] Specialties [address], [address] [place] [address] Jesus Tanner MD [address] [place] [address] 02/24/2025 3:00 PM EST Office Visit [facility] [address], [address]nd [place] [address] Rebekah Aragon PA [address] [place] [address] 02/28/2025 10:00 AM EST Office Visit [facility] [address], [address] [place] [address] Melyssa Encinas PA [address] [place] [address] 07/12/2025 11:00 AM EDT Ovarian Cancer Screening [facility] Gynecology [address] [facility], 3rd [place] [address] documented as of this encounter Procedures Procedure [...] documented as of this encounter Care Teams Video Tape Transferrer Relationship Specialty Start Date End Date Dru Giles MD PCP - General 11/21/21 documented as of this encounter
--- OUTSIDE RECORDS SUMMARY | 2024-11-11 09:48 | XMS_ITS | Encounter Summary ---
Author Organization Healthcare Address [address] [place] [address] Care Team Providers Care Claims Adjudicator Name Role Phone Dru Giles MD Primary Care Provider [phone] Encounter Details Date Type Department Care Team (Late st Contact Info) Description 08/20/2024 Telephone [facility] [address], [address] [place] [address] Jesus Tanner MD [address] [place] [address] Social History Tobacco Use Types [...] to speak with you Best contact number: [phone] (home) Optimal time of day to reach caller: ANYTIME Additional comments/information from caller: None Note: Please do not reply to this message. Follow-up communication and further actions as a result of this message need to be communicated with the patient directly, if the patient is not active onMyChart. If the patient is active on MyChart, they will receive notification of the communication/outcome via VSoftt. documented in this encounter Plan of Treatment Upcoming Encounters Date Type Department Care Team (Late st Contact Info) Description 11/15/2024 10:20 AM EDT Office Visit [facility] Medicine Specialties [address], 2nd [place] [address] Melyssa Encinas, PA [address] [place] [address] 12/29/2024 1:30 PM EDT Office Visit [facility] [address], [address] [place] [address] Jesus Tanner MD [address] [place] [address] 02/24/2025 3:00 PM EST Office Visit [facility] [address], 2nd [place] [address] Rebekah Aragon PA [address] [facility] [address] [place] [address] 02/28/2025 10:00 AM EST Office Visit [facility] [address], 2nd [place] [address] Melyssa Encinas PA [address] [facility] [address] [place] [address] 07/12/2025 11:00 AM EDT Ovarian Cancer Screening [facility] 800 [facility], 3rd [place] [address] documented as of this encounter Visit Diagnoses [...] documented as of this encounter Care Teams Claims Adjudicator Relationship Specialty Start Date End Date Dru Giles MD PCP - General 11/21/21 documented as of this encounter
--- OUTSIDE RECORDS SUMMARY | 2024-11-11 09:48 | XMS_ITS | Encounter Summary ---
Author Organization Healthcare Address [address] [place] [address] Care Team Providers Care Stem Threshing Machine Operator Name Role Phone Dru Giles MD Primary Care Provider [phone] Encounter Details Date Type Department Care Team (Late st Contact Info) Description 10/24/2024 Results Follow-Up [facility] Medicine Specialties [address], [address]nd [place] [address] Ari Barfield MD [address] [place] [address] Social History Tobacco Use Types [...] Description 11/15/2024 10:20 AM EDT Office Visit [facility] [address], [address]nd [place] [address] Melyssa Encinas PA [address] [facility] [address] [place] [address] 12/29/2024 1:30 PM EDT Office Visit [place] [address] [address] Jesus Tanner MD [address] [facility] [address] [place] [address] 02/24/2025 3:00 PM EST Office Visit [facility] [address], [address] [place] [address] Rebekah Aragon PA [address] [facility] [address] [place] [address] 02/28/2025 10:00 AM EST Office Visit [facility] [address] [address] Melyssa Encinas PA [address] [facility] [address] [place] [address] 07/12/2025 11:00 AM EDT Ovarian Cancer Screening [facility] [address] [facility], 3rd [place] [address] documented as of this encounter Goals Goal [...] documented as of this encounter Care Teams Stem Threshing Machine Operator Relationship Specialty Start Date End Date Dru Giles MD PCP - General 11/21/21 documented as of this encounter
--- OUTSIDE RECORDS SUMMARY | 2024-11-11 09:49 | XMS_ITS | Encounter Summary ---
Author Organization Healthcare Address [address] [place] [address] Care Team Providers Care Carton Marker Machine Name Role Phone Dru Giles MD Primary [...] Description 11/15/2024 10:20 AM EDT Office Visit [facility] Medicine Specialties [address], [address]nd [place] [address] Melyssa Encinas PA [address] [place] [address] 12/29/2024 1:30 PM EDT Office Visit [facility] Medicine Specialties [address], 2nd Floor [facility] [place] [address] Jesus Tanner MD [address] [place] [address] 02/24/2025 3:00 PM EST Office Visit [facility] Medicine Specialties [address], [address]nd [place] [address] Rebekah Aragon PA [address] [place] [address] 02/28/2025 10:00 AM EST Office Visit [facility] Medicine Specialties [address], [address] Floor [facility] [address] Melyssa Encinas PA [address] [place] [address] 07/12/2025 11:00 AM EDT Ovarian Cancer Screening [facility] 800 [facility], 3rd [place] [address] documented as of this encounter Goals Goal [...] documented as of this encounter Care Teams Carton Marker Machine Relationship Specialty Start Date End Date Dru Giles MD PCP - General 11/21/21 documented as of this encounter
--- OUTSIDE RECORDS SUMMARY | 2024-11-11 09:49 | XMS_ITS | Encounter Summary ---
Author Organization Healthcare Address [address] [place] [address] Care Team Providers Care Criminal Intelligence Analyst Name Role Phone Dru Giles MD Primary Care Provider [phone] Encounter Details Date Type Department Care Team [...] Description 11/15/2024 10:20 AM EDT Office Visit [facility] Specialties [address], [address] [place] [address] Melyssa Encinas PA [address] [place] [address] 12/29/2024 1:30 PM EDT Office Visit [facility] [address], [address] [place] [address] Jesus Tanner MD [address] [place] [address] 02/24/2025 3:00 PM EST Office Visit [facility] [address], [address] [place] [address] Rebekah Aragon PA [address] [place] [address] 02/28/2025 10:00 AM EST Office Visit [facility] [address], [address] [place] [address] Melyssa Encinas PA [address] [place] [address] 07/12/2025 11:00 AM EDT Ovarian Cancer Screening [facility] [address]rd [place] [address] documented as of this encounter Goals Goal [...] documented as of this encounter Care Teams Criminal Intelligence Analyst Relationship Specialty Start Date End Date Dru Giles MD PCP - General 11/21/21 documented as of this encounter
--- OUTSIDE RECORDS SUMMARY | 2024-11-11 09:49 | XMS_ITS | Encounter Summary ---
Author Organization Healthcare Address [address] [place] [address] Care Team Providers Care House Moving Supervisor Name Role Phone Dru Giles MD Primary Care Provider [phone] Reason for Visit * Reason Onset Date Comments Odilia new start 09/20/2024 Encounter Details Date Type Department Care Team (Late st Contact Info) Description 09/20/2024 Telephone [facility] [address], [address] [place] [address] Guille Escobar new start Social History Tobacco [...] Notes * Telephone Encounter - Shawna Jackson [facility] - 09/21/2024 2:59 PM EDT [facility] Specialty Medication Initial Care Plan Marizol Bishop is a 59 y.o. female assessed via phone for initiation of drug therapy Humira CF for diagnosis RA. Plan for administration of therapy in patient's home Therapeutic Category: Rheumatoid Arthritis Chart Review Allergies: Bee venom, Compleat, Morphine, Other, Penicillin g, Shellfish-derived products, Sulfacetamide, Wheat, Yeast, Pork allergy, Shellfish allergy, Trimethoprim, Diphth-acell pertussis-tetanus, Dtap-hepatitis b recomb-ipv, Pash-zdh-rpk-hepatitis b recmb, Penicillin v potassium, Penicillins, Sulfa [...] mg, Nightly Multiple Vitamins-Minerals (EQ One Daily WhoWanna) tablet 1 tablet, Daily ondansetron (ZOFRAN) 4 [...] injectable, preservative free 12/18/2023 Moderna COVID-19 Vaccine (Vision Mixer) 12+ years 05/10/2020, 06/07/2020, 01/03/2021 Moderna COVID-19 [...] Tried and failed: methotrexate. Rx sent to [facility]. Hydroxychloroquine contraindicated due to macular degeneration. Is [...] and how to avoid DDIs by calling [facility] before addin g/changing any medications. Pt aware [...] with labs ordered by provider. Pt willcontact [facility] if they have any other questions or [...] 2:57 PM EDT I attest to the registered pharmacy technician's recommendations. Thanks! Angelo Banks documented in this encounter Plan of Treatment Upcoming Encounters Date Type Department Care Team (Late st Contact Info) Description 11/15/2024 10:20 AM EDT Office Visit [facility] Medicine Specialties [address], [address]nd [place] [address] Melyssa Encinas PA [address] [place] [address] 12/29/2024 1:30 PM EDT Office Visit [facility] Medicine Specialties [address], [address] [place] [address] Jesus Tanner MD [address] [place] [address] 02/24/2025 3:00 PM EST Office Visit [facility] Specialties [address], 2nd [place] [address] Rebekah Aragon PA [address] [place] [address] 02/28/2025 10:00 AM EST Office Visit [facility] Specialties [address], 2nd [place] [address] Melyssa Encinas PA [address] [place] [address] 07/12/2025 11:00 AM EDT O[facility]ian Cancer [facility] [address], [address]rd [place] [address] documented as of this encounter Goals Goal Patient Goal Type Associated Problems Recent Progress Patient-Stated? Author Autogenerat ed Goal Care Plan Autogenerated Problem No Dana Leiva documented as of this encounter Visit Diagnoses Diagnosis Seronegative rheumatoid arthritis of multiple sites (CMS/[facility])- Primary documented in this encounter Additional Health [...] documented as of this encounter Care Teams House Moving Supervisor Relationship Specialty Start Date End Date Dru Giles MD PCP - General 11/21/21 documented as of this encounter
--- OUTSIDE RECORDS SUMMARY | 2024-11-11 09:49 | XMS_ITS | Encounter Summary ---
Author Organization Healthcare Address [address] [place] [address] Care Team Providers Care Hydraulic Rock Drill Operator Name Role Phone Dru Giles MD Primary Care Provider [phone] Encounter Details Date Type Department Care Team [...] Description 11/15/2024 10:20 AM EDT Office Visit [facility] Medicine Specialties [address], [address]nd [place] [address] Melyssa Encinas PA [address] [place] [address] 12/29/2024 1:30 PM EDT Office Visit [facility] Specialties [address], [address]nd [place] [address] Jesus Tanner MD [address] [place] [address] 02/24/2025 3:00 PM EST Office Visit [facility] Medicine Specialties [address], [address] [place] [address] Rebekah Aragon PA [address] [place] [address] 02/28/2025 10:00 AM EST Office Visit [facility] Specialties [address], [address]nd [place] [address] Melyssa Encians, PA [address] [place] [address] 07/12/2025 11:00 AM EDT Ovarian Cancer Screening [facility] [address] [place] [address] documented as of this encounter Goals Goal [...] documented as of this encounter Care Teams Hydraulic Rock Drill Operator Relationship Specialty Start Date End Date Dru Giles MD PCP - General 11/21/21 documented as of this encounter
--- OUTSIDE RECORDS SUMMARY | 2024-11-11 09:49 | XMS_ITS | Encounter Summary ---
Author Organization Healthcare Address [address] [place] [address] Care Team Providers Care Circuit Board Repair Technician Name Role Phone Dru Giles MD Primary Care Provider [phone] Encounter Details Date Type Department Care Team (Late st Contact Info) Description 08/27/2024 Telephone [facility] [address], [address] [place] [address] Jesus Tanner MD [address] [place] [address] Social History Tobacco Use Types [...] was normal. Please call. Best contact number: [phone] (home) Optimal time of day to reach [...] will receive notification of the communication/outcome via [employer]. documented in this encounter Plan of Treatment Upcoming Encounters Date Type Department Care Team (Late st Contact Info) Description 11/15/2024 10:20 AM EDT Office Visit [facility] Medicine Specialties [address], [address]nd [place] [address] Melyssa Encinas PA [address] [place] [address] 12/29/2024 1:30 PM EDT Office Visit [facility] [address] [address] Jesus Tanner MD [address] [place] [address] 02/24/2025 3:00 PM EST Office Visit [facility] [address] [address] Rebekah Aragon PA [address] [facility] [address] [place] [address] 02/28/2025 10:00 AM EST Office Visit [facility] [address] [address] Melyssa Encinas PA [address] [facility] [address] [place] [address] 07/12/2025 11:00 AM EDT Ovarian Cancer Screening [facility] 800 [facility] 3rd [place] [address] documented as of this encounter Goals Goal [...] documented as of this encounter Care Teams Circuit Board Repair Technician Relationship Specialty Start Date End Date Dru Giles MD PCP - General 11/21/21 documented as of this encounter
--- OUTSIDE RECORDS SUMMARY | 2024-11-11 09:49 | XMS_ITS | Encounter Summary ---
Author Organization Healthcare Address [address] [place] [address] Care Team Providers Care Pharmaceutical Engineer Name Role Phone Dru Giles MD Primary Care Provider [phone] Encounter Details Date Type Department Care Team (Late st Contact Info) Description 09/21/2024 Telephone [place] [facility] [address] [place] [address] Jesus Tanner MD [address] [place] [address] Social History Tobacco Use [...] of the initial request. Best contact number: [phone] (home) Optimal time of day to reach [...] returning call. Please call. Best contact number: [phone] (home) Optimal time of day to reach [...] Description 11/15/2024 10:20 AM EDT Office Visit [facility] Specialties [address] [place] [address] Melyssa Encinas PA [address] [place] [address] 12/29/2024 1:30 PM EDT Office Visit [facility] [address], [address] [place] [address] Jesus Tanner MD [address] [place] [address] 02/24/2025 3:00 PM EST Office Visit [facility] [address], [address] [place] [address] Rebekah Aragon PA [address] [place] [address] 02/28/2025 10:00 AM EST Office Visit [facility] [address], [address] [place] [address] Melyssa Encinas PA [address] [place] [address] 07/12/2025 11:00 AM EDT Ovarian Cancer Screening [facility] [address]rd [place] [address] documented as of this encounter Goals Goal Patient Goal Type Associated Problems Recent Progress Patient-Stated? Author Autogenerat ed Goal Care Plan Autogenerated Problem No Dana Leiva documented as of this encounter Visit Diagnoses Not on filedocumented in this encounter Additional Health Concerns Active Problems Noted Date Diagnosed Date Autogenerated Problem 08/24/2024 Assessment Noted Time PHQ-9 Depression Total Score: 20 07/14/2 025 1:12 PM EDT A fall risk assessment has been complete d for the patient 09/20/2024 1:12 PM EDT A Body Mass Index follow-up plan has been documented for the patient 09/20/2024 1:43 PM EDT documented as of this encounter Care Teams Pharmaceutical Engineer Relationship Specialty Start Date End Date Dru Giles MD PCP - General 11/21/21 documented as of this encounter
[2024-11-11 10:04] LABS: Reticulocyte % (Auto) 1.2 % (0.9-3.2)
[2024-11-11 10:41] LABS: Iron 96 ug/dL (37-170)
[2024-11-11 10:51] LABS: Total Iron Binding Capacity 216 ug/dL (265-497)
[2024-11-11 14:13] LABS: Ferritin 188 ng/ml (11.1-264)
[2024-11-11 14:28] LABS: Vitamin B12 714 pg/mL (239-931)
[2024-11-12 03:30] LABS: Folate 19.80 ng/mL
== END 2024-11-11 23:59 | disposition home or self-care (01) ==
LOC: LAB 09:42
PROVIDERS: PCP Family Medicine; Visit Provider Internal Medicine Medical Oncology
DX: D69.6 Thrombocytopenia, unspecified (principal); D64.9 Anemia, unspecified
CPT/HCPCS: 36415; 81596; 82607; 82728; 82746; 83540; 83550; 83615; 85044; 86880

== ENCOUNTER 2024-11-15 21:06 | Emergency (ER) | payer MEDICARE, MEDICAID, SELFPAY ==
--- OUTSIDE RECORDS SUMMARY | 2024-09-20 13:30 | XMS_ITS | Encounter Summary ---
Author Organization [facility] Address [address] [id number] Care Team Providers Care Charrer Name Role Phone Dru Giles MD Primary Care Provider [phone] Reason for Visit * Reason Comments Seronegative rheumatoid arthritis of [facility] Follow-up Encounter Details Date Type Department Care Team (Late st Contact Info) Description 09/20/2024 1:30 PM EDT Office Visit [facility] [address], [address] [place] [address] Jesus Tanner MD [address] [place] [address] Inflammatory polyarthritis (CMS/HCC); High risk [...] injectable, preservative free 12/18/2023 Moderna COVID-19 Vaccine (Supervisor Uranium Processing) 12+ years 05/10/2020, 06/07/2020, 01/03/2021 Moderna COVID-19 [...] mg, Nightly Multiple Vitamins-Minerals (EQ One Daily [employer]) tablet 1 tablet, Daily ondansetron (ZOFRAN) 4 [...] Plasma 08/23/2024 187 (L) Total Iron Binding [place]* 08/23/2024 234 (L) Transferrin Saturation 08/23/2024 18 [...] Parts of this note were dictated using [employer] voice recognition software. As a result, errors may occur. When identified, these ceramic painter errors are corrected, but while every attempt [...] and other consulting physicians. Jesus Tanner MD Occupational Health Rn Division of Rheumatology Department of Internal Medicine [facility] Electronically Signed by: Jesus Tanner MD [...] injectable, preservative free 12/18/2023 Moderna COVID-19 Vaccine (Supervisor Uranium Processing) 12+ years 05/10/2020, 06/07/2020, 01/03/2021 Moderna COVID-19 [...] mg, Nightly Multiple Vitamins-Minerals (EQ One Daily [employer]) tablet 1 tablet, Daily ondansetron (ZOFRAN) 4 [...] Plasma 08/23/2024 187 (L) Total Iron Binding [place]* 08/23/2024 234 (L) Transferrin Saturation 08/23/2024 18 [...] Parts of this note were dictated using [employer] Direct voice recognition software. As a result, errors may occur. When identified, these ceramic painter errors are corrected, but while every attempt [...] and other consulting physicians. Jesus Tanner MD Occupational Health Rn Division of Rheumatology Department of Internal Medicine [facility] Electronically Signed by: Jesus Tanner MD - 09/20/2024 - 2:36 PM documented in this encounter Plan of Treatment Upcoming Encounters Date Type Department Care Team (Late st Contact Info) Description 12/29/2024 1:30 PM EDT Office Visit [facility] [address] [place] [address] Jesus Tanner MD [address] [place] [address] 02/07/2025 10:20 AM EST Office Visit [facility] [address] [place] [address] Melyssa Encinas PA [address] [place] [address] 02/24/2025 3:00 PM EST Office Visit [facility] [address] [place] [address] Rebekah Aragon PA [address] [place] [address] 07/12/2025 11:00 AM EDT Ovarian Cancer Screening [facility] [address] [place] [address] documented as of this encounter Goals Goal Patient Goal Type Associated Problems Recent Progress Patient-Stated? Author Autogenerat ed Goal Care Plan Autogenerated Problem No Dana Leiva documented as of this encounter Results * C-reactive protein (09/20/2024 2:05 PM EDT) CRP, Plasma 6.7 <=8.0 mg/L 09/20/2024 3:14 PM EDT [facility] Blood Venous blood specimen / Unknown Venipuncture / Unknown 09/20/2024 2:05 PM EDT 09/20/2024 2:05 PM EDT Narrative [facility] - 09/20/2024 3:14 PM EDT This CRP test is appropriate for assessment of infection, systemic inflammation and/or tissue injury. To assess cardiovascular disease risk order high sensitivity CRP (CRPH). Jesus Tanner MD LAB BLOOD ORDERABLES Final Re sult Performing Organization Address [facility]/ZIP Co de Phone Number [facility] [address] [place] [address] * (ABNORMAL) Sedimentation Rate, Automated (09/20/2024 2:05 PM EDT) [facility] Sedimentation Rate 58(H) <30 mm/hr 2024 3:19 PM EDT [facility] Blood Venous blood specimen / Unknown Venipuncture / Unknown 09/20/2024 2:05 PM EDT 09/20/2024 2:05 PM EDT Jesus Tanner MD LAB BLOOD ORDERABLES Final Re sult [facility] [address] [place] [address] * (ABNORMAL) Comprehensive metabolic panel (09/20/2024 2:05 PM EDT) Pathologist [facility] Glucose, Plasma 117(H) 74 - 99 mg/dL 09/20/2024 3:14 PM EDT [facility] BUN, Plasma 13 7 - 21 mg/dL 09/20/2024 3:14 PM EDT [facility] Creatinine, Plasma 0.91 0.60 - 1.10 mg/dL 09/20/2024 3:14 PM EDT [facility] BUN/Creatinine Ratio 09/20/2024 3:14 PM EDT [facility] Sodium, Plasma 140 136 - 145 mmol/L 09/20/2024 3:14 PM EDT [facility] Potassium, Plasma 3.8 3.6 - 4.9 mmol/L 09/20/2024 3:14 PM EDT [facility] Chloride, Plasma 106 97 - 107 mmol/L 09/20/2024 3:14 PM EDT [facility] CO2, Plasma 22 22 - 29 mmol/L 09/20/2024 3:14 PM EDT [facility] Anion Gap 12 6 - 16 mmol/L 09/20/2024 3:14 PM EDT [facility] Total Calcium, Plasma 9.3 8.9 - 10.2 mg/dL 09/20/2024 3:14 PM EDT [facility] Total Protein 7.5 6.3 - 7.9 g/dL 09/20/2024 3:14 PM EDT [facility] Albumin, Plasma 3.7 3.5 - 5.2 g/dL 09/20/2024 3:14 PM EDT [facility] AST, Plasma 54(H) 10 - 35 U/L 09/20/2024 3:14 PM EDT [facility] ALT, Plasma 30 10 - 35 U/L 09/20/2024 3:14 PM EDT [facility] Alkaline Phosphatase, Plasma 180(H) 46 - 142 U/L 09/20/2024 3:14 PM EDT [facility] Total Bilirubin, Plasma 1.7(H) 0.2 - 1.1 mg/dL 09/20/2024 3:14 PM EDT [facility] eGFRcr 72.8 mL/min/1.7 3m*2 09/20/2024 3:14 PM EDT [facility] Comment:Reported eGFRcr in m L/min/1.73m2 is based the CKD-EPI 2020 equation that does not use a race coefficient. Blood Venous blood specimen / Unknown Venipuncture / Unknown 09/20/2024 2:05 PM EDT 09/20/2024 2:05 PM EDT us Jesus Tanner MD LAB BLOOD ORDERABLES Final Re sult [facility] [address] [place] [address] * (ABNORMAL) CBC and differential (09/20/2024 2:05 PM EDT) WBC Count 8.34 3.70 - 10.30 10*3/uL LAB HEMATOLOGY METHOD 09/20/2024 4:01 PM EDT [facility] RBC Count 3.64(L) 3.90 - 5.20 10*6/uL LAB HEMATOLOGY METHOD 09/20/2024 4:01 PM EDT [facility] HGB 11.0(L) 11.2 - 15.7 g/dL LAB HEMATOLOGY METHOD 09/20/2024 4:01 PM EDT [facility] HCT 35.9 34.0 - 45.0 % LAB HEMATOLOGY METHOD 09/20/2024 4:01 PM EDT [facility] Platelet Count 163 155 - 369 10*3/uL LAB HEMATOLOGY METHOD 09/20/2024 4:01 PM EDT [facility] MCV 99(H) 79 - 98 fL LAB HEMATOLOGY METHOD 09/20/2024 4:01 PM EDT [facility] MCH 30.2 26.0 - 32.0 pg LAB HEMATOLOGY METHOD 09/20/2024 4:01 PM EDT [facility] MCHC 30.6(L) 30.7 - 35.5 g/dL LAB HEMATOLOGY METHOD 09/20/2024 4:01 PM EDT [facility] RDW 16.0(H) 11.5 - 14.5 % LAB HEMATOLOGY METHOD 09/20/2024 4:01 PM EDT [facility] MPV 10.7 8.8 - 12.5 fL LAB HEMATOLOGY METHOD 09/20/2024 4:01 PM EDT [facility] nRBC 0.0 <=0.0 per 100 WBCs LAB HEMATOLOGY METHOD 09/20/2024 4:01 PM EDT [facility] Differential Type Automated LAB HEMATOLOGY METHOD 09/20/2024 4:01 PM EDT [facility] Neutrophils % 68 % LAB HEMATOLOGY METHOD 09/20/2024 4:01 PM EDT [facility] Lymphocytes % 25 % LAB HEMATOLOGY METHOD 09/20/2024 4:01 PM EDT [facility] Monocytes % 1 % LAB HEMATOLOGY METHOD 09/20/2024 4:01 PM EDT [facility] Eosinophils % 5 % LAB HEMATOLOGY METHOD 09/20/2024 4:01 PM EDT [facility] Basophils % 1 % LAB HEMATOLOGY METHOD 09/20/2024 4:01 PM EDT [facility] Immature Granulocytes % 0 % LAB HEMATOLOGY METHOD 09/20/2024 4:01 PM EDT [facility] Neutrophils Absolute 5.55 1.60 - 6.10 10*3/uL LAB HEMATOLOGY METHOD 09/20/2024 4:01 PM EDT [facility] Lymphocytes Absolute 2.12 1.20 - 3.90 10*3/uL LAB HEMATOLOGY METHOD 09/20/2024 4:01 PM EDT [facility] Monocytes Absolute 0.12(L) 0.30 - 0.90 10*3/uL LAB HEMATOLOGY METHOD 09/20/2024 4:01 PM EDT [facility] Eosinophils Absolute 0.44 0.00 - 0.50 10*3/uL LAB HEMATOLOGY METHOD 09/20/2024 4:01 PM EDT [facility] Basophils Absolute 0.08 0.00 - 0.10 10*3/uL LAB HEMATOLOGY METHOD 09/20/2024 4:01 PM EDT [facility] Immature Granulocytes Absolute 0.03 0.00 - 0.06 10*3/uL LAB HEMATOLOGY METHOD 09/20/2024 4:01 PM EDT [facility] Blood Venous blood specimen / Unknown Venipuncture / Unknown 09/20/2024 2:05 PM EDT 09/20/2024 2:05 PM EDT [facility] - 09/20/2024 4:01 PM EDT Therapeutic decision making should be based on absolute values, rather than percentages. us Jesus Tanner MD LAB BLOOD ORDERABLES Final Re sult [facility] [address] [place] [address] documented in this encounter Visit Diagnoses Diagnosis [...] documented as of this encounter Care Teams Charrer Relationship Specialty Start Date End Date Dru Giles MD PCP - General 11/21/21 documented as of this encounter
--- OUTSIDE RECORDS SUMMARY | 2024-10-07 13:20 | XMS_ITS | Encounter Summary ---
Author Organization [facility] Address [address] [place] [address] Care Team Providers Care Hot Dog Vender Name Role Phone Dru Giles MD Primary Care Provider [phone] Reason for Referral * Consultation (Routine) - Closed Specialty Diagnoses / Procedures Referred By Contac t Referred To Contact Diagnoses Cirrhosis of liver without ascites, unspecified hepatic cirrhosis type (CMS/HCC) Rebekah Aragon PA [address] [facility] [address] [place] [address] Phone: tel: fax: Referral ID Status Reason Start Date Expiration Date Visits Re quested Visits Authorized [id number] Closed 10/07/2024 04/08/2026 1 1 Reason for Visit * Reason Comments Cirrhosis of liver without ascites, unsp ecified hepatic cir Encounter Details Date Type Department Care Team (Latest Contact Info) Description 10/07/2024 1:20 PM EDT Office Visit [facility] Medicine Specialties [address] [place] [address] Rebekah Aragon PA [address] [facility] [address] [place] [phone] Decompensated cirrhosis (CMS/HCC) (Primary Dx); Liver lesion; [...] at all 10/07/2024 1:12 PM EDT Shira Reinsoo Trouble concentrating on things, such as reading [...] or place. She was hospitalized overnight at [facility] and was told to have [...] (major depressive disorder), recurrent, with melancholic features ([facility]) 04/19/2024 Martin shared that there are several [...] mg, Nightly Multiple Vitamins-Minerals (EQ One Daily [employer] [facility] [place]) tablet 1 tablet, Daily Nystop 478863 UNIT/GM powder apply topically to the affected [...] - please document in the comment field Guzr-Tfx-Kkj-Hepatitis B Recmb Other - please document in [...] Comment: SEE SCANNED REPORT Test performed at: [facility], [address] [place] [phone]. Gibson Nolasco MD,PhD., Hopper Attendant. HGBA1C 5.5 03/28/2022 1204 CHOL 194 03/28/2022 [...] Description 12/29/2024 1:30 PM EDT Office Visit [facility] Medicine Specialties [address] [place] [address] Jesus Tanner MD [address] [place] [phone] 02/07/2025 10:20 AM EST Office Visit [facility] Medicine Specialties [address], [address] [place] [address] Melyssa Encinas PA [address] [place] [address] 02/24/2025 3:00 PM EST Office Visit [facility] Medicine Specialties [address], [address] [place] [address] Rebekah Aragon PA [address] [place] [address] 07/12/2025 11:00 AM EDT Ovarian Cancer Screening [facility] Gynecology [address] [facility] [place] [address] Scheduled Referrals Name Type Priority Associated Diagnoses [...] documented as of this encounter Care Teams Hot Dog Vender Relationship Specialty Start Date End Date Dru Giles MD PCP - General 11/21/21 documented as of this encounter
--- OUTSIDE RECORDS SUMMARY | 2024-10-14 11:56 | XMS_ITS | Encounter Summary ---
Author Organization [facility] Address [address] [id number] Care Team Providers Care Chief Environmental Commitment Officer Name Role Phone Dru Giles MD Primary Care Provider [phone] Reason for Referral * Imaging (Routine) - Closed Specialty Diagnoses / Procedures Referred By Giana lo Referred To Contact Gastroenterology Diagnoses Gastroesophageal reflux disease, unspecified whether esophagitis present History of cirrhosis Bilious vomiting with nausea Procedures EGD Melyssa Encinas PA [address] [address] Phone: tel: fax: Referral ID Status Reason Start Date Expiration Date V isits Requested Visits Authorized [id number] Closed Specialty Services Required 08/24/2024 02/23/2026 1 1 Reason for Visit * Imaging (Routine) - Closed Specialty Diagnoses / Procedures Referred By Giana lo Referred To Contact Gastroenterology Diagnoses Gastroesophageal reflux disease, unspecified whether esophagitis present History of cirrhosis Bilious vomiting with nausea Procedures EGD Melyssa Encinas PA [address] [facility] [address] [place] [address] Phone: tel: fax: Referral ID Status Reason Start Date Expiration Date V isits Requested Visits Authorized [id number] Closed Specialty Services Required 08/24/2024 02/23/2026 1 1 Encounter Details Date Type Department Care Team (Latest Contact Info) Description 10/14/2024 11:56 AM EDT - 10/14/2024 11:59 PM EDT Hospital Encounter [facility] [address] [place] [address] Alverto Braney MD [address] [place] [address] Ari Barfield MD [address] [place] [address] Israel Murrell CRNA [address] [place] [address] Constance Infante GS - Endoscopy [...] powder 1 (one) time each day. 01/27/2022 EPINEPHrine (AUVI-Q) 0.15 mg/0.15 mL IJ solution auto-injector injection Inject 0.0225 mL (0.0225 mg) into the muscle if needed for anaphylaxis. ergocalciferol 1.25 MG (62096 UT) capsule Take 1 capsule by mouth [...] day 1350 mL 2 10/07/2024 01/06/20 25 meclizine (Antivert) 25 MG tablet 1 tablet. 12/06/2022 methotrexate 2.5 MG tabletIndications: Inflammatory polyarthritis (CMS/HCC) Take 4 tablets (10 mg total) by mouth 1 time per week. Follow directions carefully, and ask to explain any part you do not understand. Take exactly as directed. 68 tablet 09/20/2024 01/19/20 25 montelukast (Singulair) 10 MG tablet Take 1 tablet by mouth nightly. 09/11/2020 Multiple Vitamins-Minerals (EQ One Daily [employer] FOLUP) tablet Take 1 tablet by mouth daily. Nystop 628451 UNIT/GM powder apply topically to the affected area(s) three times daily 10/01/2024 ondansetron (Zofran) 4 MG tablet 1 tablet (4 mg). 04/03/2023 ProAir HFA 108 (90 Base) MCG/ACT inhaler [...] NEEDED with epipen FOR anaphylactic reactions 06/07/2024 cetirizine (ZyrTEC) 10 MG tablet 02/05/2023 11/06/19 25 levocetirizine (Xyzal) 5 MG tablet 11/18/2023 11/06/19 25 linaCLOtide (Linzess) 145 MCG capsuleIndications :Chronic constipation Take 1 capsule (145 mcg) by mouth 1 (one) time each day before breakfast. 30 capsule 3 01/26/2024 11/05/19 25 metoclopramide (Reglan) 5 MG tablet Take 1 tablet (5 mg) by mouth 1 (one) time each day in the morning. 09/11/2020 11/06/19 25 pantoprazole (Protonix) 40 MG EC tabletIndications: Gastroesophageal reflux disease, unspecified whether esophagitis present Take 1 tablet by mouth daily before breakfast. Do not crush, chew, or split. 90 tablet 3 08/23/2024 11/16/19 25 documented as of this encounter Miscellaneous Notes [...] since 09/13/24 Location Start Date End Date [place] 09/13/24 09/19/24 Allergies Bee venom, Compleat, Morphine, Other, Penicillin g, Shellfish-derived products, Sulfacetamide, Wheat, Yeast, Pork allergy, Shellfish allergy, Trimethoprim, Diphth-acell pertussis-tetanus, Dtap-hepatitis b recomb-ipv, Yoqr-ffr-kur-hepatitis b recmb, Penicillin v potassium, Penicillins, Sulfa [...] if needed for anaphylaxis. ergocalciferol 1.25 MG (01838 UT) capsule Take 1 capsule (50,000 Units) [...] every night. Multiple Vitamins-Minerals (EQ One Daily [employer]) tablet Take 1 tablet by mouth 1 (one) time each day. (Patient not taking: Reported on 10/07/2024) Nystop 896318 UNIT/GM powder apply topically to the affected [...] from the original note were not included. [id number] Recovery After Procedural Sedation (Adult) You have [...] awakened. Last Reviewed Date: 2023 00:00:00 ?? [id number] [employer]. All rights reserved. This information is not intended as a substitute for professional medical care. Always follow your healthcare professional's instructions. * [facility] - Jane Ortega RN - 10/14/2024 12:15 PM EDT Images from the original note were not included. [address] Endoscopy Unit: Caring for Yourself after an [...] will be available in the patient portal, [employer]. Or you can call the doctor who [...] Description 12/29/2024 1:30 PM EDT Office Visit [facility] Specialties [address] [place] [address] Jesus Tanner MD [address] [place] [address] 02/07/2025 10:20 AM EST Office Visit [facility] Specialties [address] [place] [address] Melyssa Encinas PA [address] [place] [address] 02/24/2025 3:00 PM EST Office Visit [facility] Specialties [address] [place] [address] Rebekah Aragon, JANEY [address] [place] [address] 07/12/2025 11:00 AM EDT Ovarian Cancer Screening [facility] [address] [place] [address] documented as of this encounter Goals Goal Patient Goal Type Associated Problems Recent Progress Patient-Stated? Author Autogenerat ed Goal Care Plan Autogenerated Problem No Dana Leiva documented as of this encounter Procedures Procedure [...] Ari Barfield MD Proceduralist Reji Dewey Endo Blade Changer Israel Murrell CRNA CRNA Preprocedure A history and physical has been [...] 2nd part of the duodenum appeared normal. us Melyssa TOTH GI PROCEDURE ORDERABLES Final R esult * Surgical Pathology Exam (10/14/2024 12:53 PM EDT) Case Report Surgical Pathology Case: [id number] Authorizing Provider: Ari Barfield, Collected: 10/14/2024 1253 Ordering Location: [facility] Endoscopy Received: 10/14/2024 141 Pathologist: Bubba Bryan MD Specimen: Stomach, biopsy 10/15/2024 4:29 PM EDT [facility] Final Diagnosis STOMACH, BIOPSY: - REACTIVE GASTROPATHIC CHANGES - NO EVIDENCE OF HELICOBACTER-LIKE ORGANISMS ON ROUTINE STAIN 10/15/2024 4:29 PM EDT [facility] at 1629 EDT Clinical Information K21.9 - [...] duodenum appeared normal. 10/15/2024 4:29 PM EDT [facility] Gross Description A. BIOPSY Received in formalin labeled b iopsy, stomach , are 2 pink-white soft fragments of tissue measuring from 0.3 cm to 0.6 cm in greatest dimension. Entirely submitted in cassette A1. Cold Time: 1m Lakisha Dubois 10/15/2024 4:29 PM EDT [facility] Note: A resident was involved in the service. I attest I examined the relevant preparations for the specimens and confirmed the diagnosis or interpretation. 10/15/2024 4:29 PM EDT [facility] Tissue Stomach structure / Unknown 10/14/2024 12:53 PM EDT 10/14/2024 2:16 PM EDT us Ari Barfield MD LAB PATHOLOGY ORDERABL ES Final Result [facility] [address] [place] [address] documented in this encounter Visit Diagnoses Diagnosis [...] documented as of this encounter Care Teams Chief Environmental Commitment Officer Relationship Specialty Start Date End Date Dru Giles MD PCP - General 11/21/21 documented as of this encounter
--- OUTSIDE RECORDS SUMMARY | 2024-10-14 12:41 | XMS_ITS | Encounter Summary ---
Author Organization [facility] Address [address] [place] [address] Care Team Providers Care Revenue Stamp Cutter Name Role Phone Dru Giles MD Primary Care Provider [phone] Encounter Details Date Type Department Care Team ([facility] st Contact Info) Description 10/14/2024 12:41 PM EDT Anesthesia Event [facility] Endoscopy [address] [place] [address] Alverto Barney MD [address] [place] [address] Anesthesia Record Procedure Summary Procedure Name Responsible [...] mg, Nightly Multiple Vitamins-Minerals (EQ One Daily [employer]) tablet 1 tablet, Daily Nystop 048729 UNIT/GM powder apply topically to the affected [...] ABG No results found for: PHART , GOF1KFU , PO2ART , SO2ART , BEART , VAN2TGN , HCTART , SODIUMART , POTASSIUMART , POCTCL , POCGLU , IONCALART , LACTATE No results found for: PH , PCO2 , PO2 , V1JNFTBJ , BASEEXC , HCTSYR , KSYR , CLSYR , GLUSYR , CAION , LACTATE ECHO No echocardiogram results found for the past 12 months PFTs No results found for: MNK6YJF , CCG3TJBU , QLJ9STA , FVCPRED BP Readings from Last 5 [...] Plan ASA 3 Plan was reviewed with: RN TRANSITION Anesthesia technique(s) discussed with the patient/family: general [...] - please document in the comment field Yyxb-Bzy-Dam-Hepatitis B Recmb Other - please document in [...] [facility] Medicine Specialties [address], [facility] [place] [address] Jesus Tanner MD [address] [place] [address] 02/07/2025 10:20 AM EST Office Visit [facility] Medicine Specialties [address] [address] Melyssa Encinas PA [address] [place] [address] 02/24/2025 3:00 PM EST Office Visit [facility] Medicine Specialties [address], [address] [place] [address] Rebekah Aragon PA [address] [place] [address] 07/12/2025 11:00 AM EDT Ovarian Cancer Screening [facility] [address], [address] [place] [address] documented as of this encounter Goals Goal [...] documented as of this encounter Care Teams Revenue Stamp Cutter Relationship Specialty Start Date End Date Dru Giles MD PCP - General 11/21/21 documented as of this encounter
--- OUTSIDE RECORDS SUMMARY | 2024-11-04 15:40 | XMS_ITS | Encounter Summary ---
Author Organization [facility] Address [address] [id number] Care Team Providers Care Hoisting Engineer Pile Driving Name Role Phone Dru Giles MD Primary Care Provider [phone] Reason for Referral * Imaging (Routine) - Pending Review Specialty Diagnoses / Procedures Referred By Contac t Referred To Contact Radiology Diagnoses On methotrexate therapy Cirrhosis of liver without ascites, unspecified hepatic cirrhosis type (CMS/HCC) Procedures US Liver Screen Rebekah Aragon PA [address] [address] Phone: tel: fax: Referral ID Status Reason Start Date Expiration Date V isits Requested Visits Authorized [id number] Pending Review 11/04/2024 05/06/2026 1 1 * Consultation (Routine) - Authorized Specialty Diagnoses / Procedures Referred By Contac t Referred To Contact Diagnoses On methotrexate therapy Cirrhosis of liver without ascites, unspecified hepatic cirrhosis type (CMS/HCC) Rebekah Aragon PA [address] [facility] [address] [place] [address] Phone: tel: fax: Referral ID Status Reason Start Date Expiration Date V isits Requested Visits Authorized [id number] Authorized 11/04/2024 05/06/2026 1 1 Reason for Visit * Reason Comments Decompensated cirrhosis * Consultation (Routine) - Closed Specialty Diagnoses / Procedures Referred By Contac t Referred To Contact Diagnoses Cirrhosis of liver without ascites, unspecified hepatic cirrhosis type (CMS/HCC) Rebekah Aragon PA [id number] [place] [address] Phone: tel: fax: Referral ID Status Reason Start Date Expiration Date Visits Re quested Visits Authorized [id number] Closed 10/07/2024 04/08/2026 1 1 Encounter Details Date Type Department Care Team (Late st Contact Info) Description 11/04/2024 3:40 PM EDT Office Visit [place] [facility] [address], [address] [place] [address] Rebekah Aragon PA [id number] [place] [address] On methotrexate therapy (Primary Dx); [...] five more of physical therapy approved by [facility]. An appointment with Dr. Shaw, a bark grinder, is scheduled for 11/11/2024 due to recent [...] (major depressive disorder), recurrent, with melancholic features ([facility]) 04/19/2024 Martin shared that there are [...] mg, Nightly Multiple Vitamins-Minerals (EQ One Daily [employer] Gera-IT) tablet 1 tablet, Daily Nystop 183765 UNIT/GM powder apply topically to the affected [...] - please document in the comment field Yvvr-Svf-Ipg-Hepatitis B Recmb Other - please document in [...] Comment: SEE SCANNED REPORT Test performed at: [employer] [facility], [address] [place] [address]. Gibson Nolasco MD,PhD., Bobbin Doffer. HGBA1C 5.5 03/28/2022 1204 CHOL 194 03/28/2022 [...] Description 12/29/2024 1:30 PM EDT Office Visit [facility] Medicine Specialties [address], [address] [place] [address] Jesus Tanner MD [address] [place] [address] 02/07/2025 10:20 AM EST Office Visit [facility] Medicine Specialties [address], [address] [place] [address] Melyssa Encinas PA [address] [place] [address] 02/24/2025 3:00 PM EST Office Visit [facility] Medicine Specialties [address], [address] [place] [address] Rebekah Aragon, JANEY [address] [place] [address] 07/12/2025 11:00 AM EDT Ovarian Cancer Screening [facility] [address], 3rd [place] [address] Scheduled Orders Name Type Priority Associated Diagnoses [...] LAB HEMATOLOGY METHOD 11/04/2024 8:10 PM EDT [facility] RBC Count 3.73(L) 3.90 - 5.20 10*6/uL LAB HEMATOLOGY METHOD 11/04/2024 8:10 PM EDT [facility] HGB 11.1(L) 11.2 - 15.7 g/dL LAB HEMATOLOGY METHOD 11/04/2024 8:10 PM EDT [facility] HCT 36.3 34.0 - 45.0 % LAB HEMATOLOGY METHOD 11/04/2024 8:10 PM EDT [facility] Platelet Count 77(L) 155 - 369 10*3/uL LAB HEMATOLOGY METHOD 11/04/2024 8:10 PM EDT [facility] MCV 97 79 - 98 fL LAB HEMATOLOGY METHOD 11/04/2024 8:10 PM EDT [facility] MCH 29.8 26.0 - 32.0 pg LAB HEMATOLOGY METHOD 11/04/2024 8:10 PM EDT [facility] MCHC 30.6(L) 30.7 - 35.5 g/dL LAB HEMATOLOGY METHOD 11/04/2024 8:10 PM EDT [facility] RDW 13.3 11.5 - 14.5 % LAB HEMATOLOGY METHOD 11/04/2024 8:10 PM EDT [facility] MPV 11.2 8.8 - 12.5 fL LAB HEMATOLOGY METHOD 11/04/2024 8:10 PM EDT [facility] nRBC 0.0 <=0.0 per 100 WBCs LAB HEMATOLOGY METHOD 11/04/2024 8:10 PM EDT [facility] Differential Type Automated LAB HEMATOLOGY METHOD 11/04/2024 8:10 PM EDT [facility] Neutrophils % 55 % LAB HEMATOLOGY METHOD 11/04/2024 8:10 PM EDT [facility] Lymphocytes % 32 % LAB HEMATOLOGY METHOD 11/04/2024 8:10 PM EDT [facility] Monocytes % 9 % LAB HEMATOLOGY METHOD 11/04/2024 8:10 PM EDT [facility] Eosinophils % 3 % LAB HEMATOLOGY METHOD 11/04/2024 8:10 PM EDT [facility] Basophils % 1 % LAB HEMATOLOGY METHOD 11/04/2024 8:10 PM EDT [facility] Immature Granulocytes % 0 % LAB HEMATOLOGY METHOD 11/04/2024 8:10 PM EDT [facility] Neutrophils Absolute 2.56 1.60 - 6.10 10*3/uL LAB HEMATOLOGY METHOD 11/04/2024 8:10 PM EDT [facility] Lymphocytes Absolute 1.46 1.20 - 3.90 10*3/uL LAB HEMATOLOGY METHOD 11/04/2024 8:10 PM EDT [facility] Monocytes Absolute 0.42 0.30 - 0.90 10*3/uL LAB HEMATOLOGY METHOD 11/04/2024 8:10 PM EDT [facility] Eosinophils Absolute 0.12 0.00 - 0.50 10*3/uL LAB HEMATOLOGY METHOD 11/04/2024 8:10 PM EDT [facility] Basophils Absolute 0.03 0.00 - 0.10 10*3/uL LAB HEMATOLOGY METHOD 11/04/2024 8:10 PM EDT [facility] Immature Granulocytes Absolute 0.01 0.00 - 0.06 10*3/uL LAB HEMATOLOGY METHOD 11/04/2024 8:10 PM EDT [facility] Blood Venous blood specimen / Unknown Venipuncture / Unknown 11/04/2024 4:54 PM EDT 11/04/2024 4:55 PM EDT Narrative [facility] - 11/04/2024 8:10 PM EDT Therapeutic decision making should be based on absolute values, rather than percentages. us Rebekah TOTH LAB BLOOD ORDERABLES Final Resu lt Performing Organization Address [facility]/ZIP Co de Phone Number [facility] [address] [place] [address] * (ABNORMAL) Ammonia, Plasma (11/04/2024 4:54 PM EDT) Ammonia 58(H) 11 - 51 umol/L 11/04/2024 5:48 PM EDT [facility] Blood Venous blood specimen / Unknown Venipuncture / Unknown 11/04/2024 4:54 PM EDT 11/04/2024 4:55 PM EDT Rebekah TOTH LAB BLOOD ORDERABLES Final Resu lt [facility] [address] [place] [address] * Alpha Fetoprotein, Serum (11/04/2024 4:54 PM EDT) Alpha Fetoprotein, Serum 7.8 <10.0 ng/mL 11/04/2024 6:29 PM EDT [facility] Blood Venous blood specimen / Unknown Venipuncture / Unknown 11/04/2024 4:54 PM EDT 11/04/2024 4:55 PM EDT Narrative [facility] - 11/04/2024 6:29 PM EDT Performed by Brandi electrochemiluminescent immunoassay which is traceable to the 1st [facility] IRP WHO Reference standard 72/255. Results obtained with different test methods or kits cannot be used interchangeably. Rebekah TOTH LAB BLOOD ORDERABLES Final Resu lt Performing Organization Address [facility]/ZIP Co de Phone Number [facility] [address] [place] [address] * (ABNORMAL) Protime-INR (11/04/2024 4:54 PM EDT) Prothrombin Time 18.0(H) 12.0 - 14.3 sec LAB COAGULATION METHOD 11/04/2024 6:15 PM EDT [facility] INR 1.5(H) 0.9 - 1.1 LAB COAGULATION METHOD 11/04/2024 6:15 PM EDT [facility] Blood Venous blood specimen / Unknown Venipuncture / Unknown 11/04/2024 4:54 PM EDT 11/04/2024 4:55 PM EDT Narrative [facility] - 11/04/2024 6:15 PM EDT OPTIMAL INR RANGES FOR PATIENT ON ORAL ANTICOAGULANT THERAPY Prevention of venous thromboembolism INR 2.0 to 3.0 In patients with heart disease: Atrial fibrillation INR 2.0 to 3.0 Valvular heart disease INR 2.0 to 3.0 Tissue heart valves INR 2.0 to 3.0 Mechanical prosthetic valves INR 2.5 to 3.5 Prevention of recurrent GA INR 2.5 to 3.5 Rebekah TOTH LAB BLOOD ORDERABLES Final Resu lt Performing Organization Address City/[facility]/ZIP Co de Phone Number [facility] [address] [place] [address] * (ABNORMAL) Comprehensive metabolic panel (11/04/2024 4:54 PM EDT) Glucose, Plasma 74 74 - 99 mg/dL 11/04/2024 6:21 PM EDT [facility] BUN, Plasma 12 7 - 21 mg/dL 11/04/2024 6:21 PM EDT [facility] Creatinine, Plasma 0.82 0.60 - 1.10 mg/dL 11/04/2024 6:21 PM EDT [facility] BUN/Creatinine Ratio 15 11/04/2024 6:21 PM EDT [facility] Sodium, Plasma 141 136 - 145 mmol/L 11/04/2024 6:21 PM EDT [facility] Potassium, Plasma 4.3 3.6 - 4.9 mmol/L 11/04/2024 6:21 PM EDT [facility] Chloride, Plasma 109(H) 97 - 107 mmol/L 11/04/2024 6:21 PM EDT [facility] CO2, Plasma 20(L) 22 - 29 mmol/L 11/04/2024 6:21 PM EDT [facility] Anion Gap 12 6 - 16 mmol/L 11/04/2024 6:21 PM EDT [facility] Total Calcium, Plasma 9.5 8.9 - 10.2 mg/dL 11/04/2024 6:21 PM EDT [facility] Total Protein 7.8 6.3 - 7.9 g/dL 11/04/2024 6:21 PM EDT [facility] Albumin, Plasma 3.4(L) 3.5 - 5.2 g/dL 11/04/2024 6:21 PM EDT [facility] AST, Plasma 70(H) 10 - 35 U/L 11/04/2024 6:21 PM EDT [facility] Comment:Hemolyzed, result ma y be falsely increased. ALT, Plasma 30 10 - 35 U/L 11/04/2024 6:21 PM EDT [facility] Alkaline Phosphatase, Plasma 199(H) 46 - 142 U/L 11/04/2024 6:21 PM EDT [facility] Total Bilirubin, Plasma 0.9 0.2 - 1.1 mg/dL 11/04/2024 6:21 PM EDT [facility] eGFRcr 82.5 mL/min/1.7 3m*2 11/04/2024 6:21 PM EDT [facility] Comment:Reported eGFRcr in m L/min/1.73m2 is based the CKD-EPI 2020 equation that does not use a race coefficient. Blood Venous blood specimen / Unknown Venipuncture / Unknown 11/04/2024 4:54 PM EDT 11/04/2024 4:55 PM EDT us Rebekah TOTH LAB BLOOD ORDERABLES Final Resu lt [facility] [address] [place] [address] documented in this encounter Visit Diagnoses Diagnosis [...] documented as of this encounter Care Teams Hoisting Engineer Pile Driving Relationship Specialty Start Date End Date Dru Giles MD PCP - General 11/21/21 documented as of this encounter
--- OUTSIDE RECORDS SUMMARY | 2024-11-15 10:20 | XMS_ITS | Encounter Summary ---
Author Organization [facility] Address [address] [place] [address] Care Team Providers Care Telecommunications Engineer Name Role Phone Dru Giles MD Primary Care Provider [phone] Reason for Referral * Consultation (Routine) - Authorized Specialty Diagnoses / Procedures Referred By Contac t Referred To Contact Diagnoses Gastroesophageal reflux disease, unspecified whether esophagitis present Chronic constipation Melyssa Encinas PA [address] [facility] [address] [place] [address] Phone: tel: fax: Referral ID Status Reason Start Date Expiration Date V isits Requested Visits Authorized [id number] Authorized 11/15/2024 05/17/2026 1 1 Reason for Visit * Reason Comments Gastroesophageal reflux disease, unspeci fied whether esopha Encounter Details Date Type Department Care Team (Late st Contact Info) Description 11/15/2024 10:20 AM EDT [facility] [address] [place] [address] Melyssa Encinas PA [address] [facility] [address] [place] [address] Chronic constipation (Primary Dx); Gastroesophageal reflux disease, unspecified whether esophagitis present Social History Tobacco Use Types Packs/Day Years Used Date Smoking Tobacco: Never Passive Smoke Exposure: Never Smokeless Tobacco: Never Alcohol Use Standard Drinks/Week Comments Not Currently 0 (1 standard drink = 0.6 oz pur e alcohol) PHQ-2 Answer Date Recorded Patient Health Questionnaire-2 Score 0 11/15/2024 PHQ-9 Answer Date Recorded Patient Health Questionnaire-9 Score 0 11/15/2024 AUDIT-C Answer Date Recorded Q1: How often [...] Sign Reading Time Taken Comments Blood Pressure 138/83 11/15/2024 10:36 AM EDT Pulse 78 11/15/2024 10:36 AM EDT Temperature 36.4 C (97.6 F) 11/15/2024 10:36 AM EDT Respiratory Rate 20 11/15/2024 10:36 AM EDT Oxygen Saturation 98% 11/15/2024 10:36 AM EDT Inhaled Oxygen Concentration - - Weight 133 kg (293 lb 6.9 oz) 11/15/2024 10:36 A M EDT Height 170.2 cm (5' 7 ) 11/15/2024 10:36 AM EDT Body Mass Index 45.96 11/15/2024 10:36 AM EDT documented in this encounter Functional Status * Over the past 2 weeks, how often have you been bothered by any of the following problems? Question Answer Date of Assessment Author Little interest or pleasure in doing things Not at all 11/15/2024 10:39 AM EDT Jenn Reinoso Feeling down, depressed, or hopeless Not at all 11/15/2024 10:39 AM EDT Jenn Reinoso Patient Health Questionnaire -2 Score 0 11/15/2024 10:39 AM EDT Jenn Reinoso * Question Answer Date of Assessment Author Trouble falling or staying asleep, or sleeping too much Not at all 11/15/2024 10:39 AM EDT Shira Reinoso Feeling tired or having santos le energy Not at all 11/15/2024 10:39 AM EDT Jenn Reinoso a Poor appetite or overeating Not at all 11/15/2024 10 :39 AM EDT Shira Reinoso Feeling bad about yourself - or that you are a failure or have let yourself or your family down Not at all 11/15/2024 10:39 AM EDT Shira Gil Trouble concentrating on thi ngs, such as reading the newspaper or watching television Not at all 11/15/2024 10:39 AM EDT Jenn Reinoso a Moving or speaking so slowly that other people could have noticed? Or the opposite - being so fidgety or restless that you have been moving around a lot more than usual. Not at all 11/15/2024 10:39 AM EDT Jenn Reinoso Thoughts that you would be better off or hurting yourself in some way Not at all 11/15/2024 10:39 AM EDT Sree Reinoso Patient Health Questionnaire -9 Score 0 11/15/2024 10:39 AM EDT Jenn Reinoso a * If you checked off any problems on this questionnaire so far, Question Answer Date of Assessment Author How difficult have these problems made it for you to do your work, take care of things at home, or get along with other people? Not difficult at all 11/15/2024 10:39 AM EDT Sree Reinoso documented as of this encounter Miscellaneous Notes * Patient Instructions - Melyssa Encinas PA - 11/15/2024 10:20 AM EDT resume 145mcg take 30 minutes before eating breakfast in am Add miralax 1-2 daily if needed for constipation Stay on pantoprazole take 3 minutes before eating breakfast in am documented in this encounter Plan of Treatment Upcoming Encounters Date Type Department Care Team (Late st Contact Info) Description 12/29/2024 1:30 PM EDT Office Visit [facility] Medicine Specialties [address] [place] [address] Jesus Tanner MD [address] [place] [address] 02/07/2025 10:20 AM EST Office Visit [facility] [address], [address] [place] [address] Melyssa Encinas PA [address] [place] [address] 02/24/2025 3:00 PM EST Office Visit [facility] [address] [place] [address] Rebekah Aragon PA [address] [place] [address] 07/12/2025 11:00 AM EDT Ovarian Cancer Screening [facility] Gynecology [address] [facility], [address]rd [place] [address] Scheduled Referrals Name Type Priority Associated Diagnoses Orde r Schedule Follow Up GI Outpatient Referral Routine Gastroesophageal reflux disease, unspecified whether esophagitis present Chronic constipation 1 Occurrences starting 11/15/2024 until 12/15/2025 documented as of this encounter Goals Goal Patient Goal Type Associated Problems Recent Progress Patient-Stated? Author Autogenerat ed Goal Care Plan Autogenerated Problem No Dana Leiva documented as of this encounter Visit Diagnoses Diagnosis Chronic constipation- Primary Unspecified constipation Gastroesophageal reflux disease, unspecified whether esophagitis present documented in this encounter Additional Health Concerns Active Problems Noted Date Diagnosed Date Autogenerated Problem 08/24/2024 Assessment Noted Time PHQ-9 Depression Total Score: 0 11/16/19 25 10:39 AM EDT A fall risk assessment has been complete d for the patient 11/15/2024 10:40 AM EDT A Body Mass Index follow-up plan has been documented for the patient 11/05/2024 11:52 AM EDT documented as of this encounter Care Teams Telecommunications Engineer Relationship Specialty Start Date End Date Dru Giles MD PCP - General 11/21/21 documented as of this encounter
--- NOTE | 2024-11-15 21:11 | HMH.EDGENADL ---
Discharge Plan Disposition Patient Disposition: Home, Self-Care Condition: Good Prescriptions Prescriptions: New methocarbamol 500 mg tablet 500 mg PO Q8H Qty: 90 0RF lidocaine 5 % adhesive patch,medicated 1 patch topical DAILY Qty: 15 0RF Rx Instructions: leave on most painful area for up to 12 hrs No Action folic acid 1 mg tablet 1 mg PO DAILY Qty: 90 3RF ferrous sulfate 325 mg (65 mg iron) tablet 325 mg PO ONCE Horizant 600 mg tablet extended release 600 mg PO QPM Qty: 30 5RF Rx Instructions: 600 mg at 5 PM mirtazapine 15 mg tablet 15 mg PO DAILY Linzess 72 mcg capsule PO methotrexate sodium 2.5 mg tablet 15 mg PO WEEKLY fluticasone furoate-vilanterol [Breo Ellipta] 200-25 mcg/dose blister with device 1 inh inhalation DAILY 90 Days Qty: 90 2RF levocetirizine 5 mg tablet 5 mg PO HS Zegalogue Autoinjector 0.6 mg/0.6 mL auto-injector 0.6 mg SQ Q3MINP PRN (Reason: Anaphylaxis) Patient Comments: USE DIRECTED NEEDED with epipen FOR anaphylactic reactions Humira 40 mg/0.8 mL syringe kit 40 mg SQ .EVERY 2 WEEKS Rx Instructions: inject one - 40 mg/0.8 mL syringe every 2 weeks SQ ondansetron HCl 4 mg tablet 4 mg PO Q8H PRN (Reason: nausea and vomiting) Qty: 20 0RF lactulose 10 gram/15 mL solution 15 ml PO BID Patient Comments: take 15 mls BY MOUTH THREE TIMES DAILY. can increase OR decrease volume OR frequency of dosing TO have 1 BOWEL MOVEMENT daily OR EVERY OTHER DAY DIRECTED Xifaxan 550 mg tablet 550 mg PO BID nystatin 100,000 unit/gram powder 1 applic topical TID Qty: 60 10RF tramadol 50 mg tablet 50 mg PO Q8HP PRN (Reason: pain) Qty: 90 5RF valsartan 160 mg tablet 160 mg PO DAILY Qty: 90 3RF azelastine 137 mcg (0.1 %) spray,non-aerosol 2 spray intranasal BIDP PRN (Reason: Congestion) Rx Instructions: administer into each nostril albuterol sulfate 90 mcg/actuation HFA aerosol inhaler 2 inh IH Q6HP PRN (Reason: shortness of breath or wheezing) metoclopramide HCl [Reglan] 5 mg tablet 5 mg PO TIDP PRN (Reason: Stomach Upset) Rx Instructions: TAKE 1 TABLET BY MOUTH ONCE DAILY FOR GERD meclizine 25 mg tablet 25 mg PO TIDP PRN (Reason: dizziness) fluticasone propionate 50 mcg/actuation spray,suspension 1 spray intranasal DAILY Rx Instructions: USE 2 SPRAYS IN EACH NOSTRIL ONCE DAILY pantoprazole 40 mg tablet,delayed release (DR/EC) 40 mg PO 0700 montelukast 10 mg tablet 10 mg PO HS Rx Instructions: TAKE 1 TABLET BY MOUTH EVERY EVENING FOR ALLERGIES Referrals Follow up/Referrals: Dru Giles MD [Primary Care Provider, Family Practice] - See instructions Activity Restrictions/Add. Instructions Additional Instructions/Restrictions: I have sent you with the lidocaine patches and the Robaxin which you can take for your back pain. You will call you if your urine sample comes back for anything positive that you need antibiotics for. Return to the emergency department for any acute or worsening symptoms. Clinical Impressions Clinical Impression: Back pain Instructions Patient Instructions: DI for Low Back Pain Print Language Print Language: Albanian Discharge ED Provider: Lakisha Isabel General Adult HPI General Chief complaint: Back Pain/Injury Stated complaint: Lower back pain Time Seen by Provider: 11/15/24 21:10 History of Present Illness HPI narrative: Patient is a 59-year-old female with a past medical history of recurrent UTIs who presents to the emergency department with right sided back pain. Patient states that it started this morning. Patient states that it is nonradiating. States that it is in her right lower back. Denies any abdominal pain nausea vomiting or diarrhea. Patient denies any chest pain or shortness of breath. Patient denies any prior back surgeries. Patient denies any recent trauma. She denies any history of sciatica. States that she has had recurrent UTIs has had kidney infections in the past. Patient denies any fevers. Reports frequency but no other urinary symptoms. Related Data Home Medications ?Medication ?Instructions ?Recorded ?Confirmed methotrexate sodium 2.5 mg tablet 15 mg PO WEEKLY 08/09/22 11/11/24 levocetirizine 5 mg tablet 5 mg PO HS 02/17/24 11/11/24 dasiglucagon 0.6 mg/0.6 mL 0.6 mg SQ Q3MINP PRN Anaphylaxis 06/28/24 11/11/24 subcutaneous auto-injector (Zegalogue) adalimumab 40 mg/0.8 mL 40 mg SQ .EVERY 2 WEEKS 09/23/24 11/11/24 subcutaneous syringe kit (Humira) albuterol sulfate 90 mcg/actuation 2 inh inhalation Q6HP PRN 09/25/24 11/11/24 aerosol inhaler shortness of breath or wheezing azelastine 137 mcg (0.1 %) nasal 2 spray intranasal BIDP PRN 09/25/24 11/11/24 spray Congestion fluticasone propionate 50 1 spray intranasal DAILY 09/25/24 11/11/24 mcg/actuation nasal spray,suspension meclizine 25 mg tablet 25 mg PO TIDP PRN dizziness 09/25/24 11/11/24 metoclopramide HCl 5 mg tablet 5 mg PO TIDP PRN Stomach Upset 09/25/24 11/11/24 (Reglan) montelukast 10 mg tablet 10 mg PO HS 09/25/24 11/11/24 pantoprazole 40 mg tablet,delayed 40 mg PO 0700 09/25/24 11/11/24 release ferrous sulfate 325 mg (65 mg 325 mg PO ONCE 10/06/24 11/11/24 iron) tablet lactulose 10 gram/15 mL oral 15 ml PO BID 10/20/24 11/11/24 solution rifaximin 550 mg tablet (Xifaxan) 550 mg PO BID 10/20/24 11/11/24 linaclotide 72 mcg capsule mcg PO 11/11/24 11/11/24 (Linzess) mirtazapine 15 mg tablet 15 mg PO DAILY 11/11/24 11/11/24 Previous Rx's ?Medication ?Instructions ?Recorded folic acid 1 mg tablet 1 mg PO DAILY #90 tabs 10/13/23 fluticasone furoate 200 1 inh inhalation DAILY 90 days #90 03/11/24 mcg-vilanterol 25 mcg/dose ea inhalation powder (Breo Ellipta) ondansetron HCl 4 mg tablet 4 mg PO Q8H PRN nausea and 08/24/24 vomiting #20 tabs nystatin 100,000 unit/gram topical 1 applic topical TID #60 grams 10/01/24 powder tramadol 50 mg tablet 50 mg PO Q8HP PRN pain #90 tabs 10/04/24 gabapentin enacarbil 600 mg 600 mg PO QPM RLS #30 tabs 10/06/24 tablet,extended release (Horizant ER) valsartan 160 mg tablet 160 mg PO DAILY #90 tabs 10/28/24 lidocaine 5 % topical patch 1 patch topical DAILY #15 ea 11/15/24 methocarbamol 500 mg tablet 500 mg PO Q8H #90 tabs 11/15/24 Allergies Allergy/AdvReac Type Severity Reaction Status Date / Time bee venom protein (honey bee) Allergy Severe Anaphylaxis Verified 11/11/24 09:06 shellfish derived Allergy Severe Hives Verified 11/11/24 09:06 wheat Allergy Severe Hives Verified 11/11/24 09:06 Yeast Allergy Severe Hives Verified 11/11/24 09:06 morphine Allergy Unknown Verified 11/15/24 21:34 allergy reaction Pork/Porcine Containing Allergy Hives Verified 11/11/24 09:06 Products food allergies Allergy Severe Hives Uncoded 11/11/24 09:06 Penicillin Allergy Unknown Hives Uncoded 11/11/24 09:06 SULFA (sulfonamide) Allergy Unknown Hives Uncoded 11/11/24 09:06 Sulfamethoxazole Allergy Unknown Hives Uncoded 11/11/24 09:06 Trimethoprim Allergy Unknown Hives Uncoded 11/11/24 09:06 [facility] Disclaimer: The information contained in this section may have been updated after the patient was seen, as this information can be updated by other users. Medical History Mastoiditis Asthma Ear pain Retracted ear drum Otalgia, left ear Eustachian tube dysfunction BROWN on CPAP Moderate BROWN with nocturnal hypoxemia resolved on CPAP at 12 cm, excellent compliance, no intolerance. Adjustment disorder with mixed anxiety and depressed mood Martin's health issues cause many emotions to surface as she is trying to cope/adjust to the way her life is, or will be. Most of Martin's concerns are for the care and welfare of her autistic son, if something negative should happen to her. MDD (major depressive disorder), recurrent, with melancholic features Martin shared that there are several things that she has to do differently, or give up altogether because her health issues will not allow her to do the things anymore. This has caused Martin to be sad, irritable, scared, depressed, and at times, hopeless. Generalized anxiety disorder with panic attacks Martin reported having Anxiety and Panic attacks as a little girl, and she was known as a worry-wart. Currently, her anxious symptoms have been worse since March 2020 when she became very sick and now has several serious illnesses. Lupus Ovarian cyst Moderate persistent asthma Allergic rhinitis Mild intermittent asthma History of seronegative inflammatory arthritis Inflammatory polyarthritis Wheezing Dyspnea on exertion Surgical History Status post myringotomy with insertion of tube LEFT History of surgery on lower extremity History of cholecystectomy History of esophagogastroduodenoscopy (EGD) History of colonoscopy History of tonsillectomy Family History Other Family history of cancer Heart attack Hypertension Stroke Social History Smoking Status: Never smoker alcohol intake: never substance use type: denies use current occupational status: disabled Travel in the last 8 weeks?: Inside the [employer] household members: other housing: apartment lives independently: Yes marital status: single number of children: 1 Other Medical History Have you received the Flu Vaccine for this season: No Have you received the Pneumonia Vaccine: No ROS Obtained: Yes All systems reviewed & no additional complaints except as documented and Yes Systems reviewed as appropriate & no additional complaints except as documented Physical Exam General General appearance: alert and in no apparent distress Head Head exam: atraumatic, normocephalic and normal inspection Eye Eye exam: Present normal appearance, PERRL and EOMI; Absent scleral icterus ENT ENT exam: Present normal exam and normal external ear exam Neck Neck exam: Present normal inspection and full ROM Chest Chest inspection: Present normal inspection and symmetric chest wall rise Respiratory Respiratory exam: Present normal lung sounds bilaterally; Absent respiratory distress or wheezes Cardiovascular Cardiovascular exam: Present regular rate, normal rhythm and normal heart sounds Abdominal Exam Abdominal exam: Present soft, distention and other (No CVA tenderness, no abdominal tenderness); Absent tenderness, guarding or rebound Extremities Exam Extremities exam: Present normal inspection and full ROM Back Exam Back exam: Present normal inspection, full ROM and other (R SI joint tenderness) Neurological Exam Neurological exam: Present alert and oriented X3 Psychiatric Psychiatric exam: Present normal affect and normal mood Skin Skin exam: Present warm and dry Medical Decision Making Medical Records Screening: Per USPSTF and CDC recommendations, given the prevalence of disease in our region, it is our hospital?s policy to screen for HIV and viral Hepatitis for all patients aged 18 and over and those with ongoing risk factors. Magdi Inquiry Pt receiving controlled substance: No Vital Signs: 11/15/24 21:19 11/15/24 21:29 11/15/24 23:27 Temperature 98.5 F 98.4 F Temperature Source Oral Oral Pulse Rate 89 92 H Pulse Rate [Left] 97 H Respiratory Rate 16 18 16 Blood Pressure 158/78 H 167/68 H Blood Pressure [Right Arm] 187/80 H Blood Pressure Mean [Right Arm] 115 Blood Pressure Source Automatic Cuff Automatic Cuff Blood Pressure Source [Right Arm] Automatic Cuff Blood Pressure Position Supine 02 Sat by Pulse Oximetry 95 95 Oxygen Delivery Method Room Air Room Air Room Air Lab Data Lab results reviewed: Yes I reviewed the patient's lab results. Lab Results 11/15/24 21:39: Urine Color Yellow, Urine Appearance Clear, Urine pH 7.0, Ur Specific [place] 1.020, Urine Protein Negative, Urine Glucose (UA) Negative, Urine Ketones Negative, Urine Blood Negative, Urine Nitrate Negative, Urine Bilirubin Negative, Urine Urobilinogen 0.2, Ur Leukocyte Esterase Negative, Urine WBC Occasional, Ur Squamous Epith Cells 3-5, Urine Bacteria Trace Orders (Tests/Meds): ED MEDICATIONS Discontinued Medications Generic Name Dose Route Start Last Admin Trade Name Terrenceq PRN Reason Stop Dose Admin Lidocaine 1 each 11/15/24 21:34 11/15/24 21:42 Lidocaine 5% Transdermal Patch TD 11/15/24 21:35 1 each ONCE ONE Administration Methocarbamol 500 mg 11/15/24 21:35 11/15/24 21:42 Methocarbamol 500mg Tablet PO 11/15/24 21:36 500 mg ONCE ONE Administration ORDERS Category Date Time Status Pelvis XR 1-2 views [XR pelvis 1-2V] Stat Exams 11/15/24 21:34 Completed UA [Urinalysis and Microscopic] Stat Lab 11/15/24 21:39 Completed Urine Culture Stat Micro 11/15/24 21:45 Received Medical Decision Narrative: Patient is an otherwise healthy 59-year-old female who presented to the emergency department with right back pain. On arrival, patient was hemodynamically stable with unremarkable vital signs. Differential includes but not limited to: Urinary tract infection, pyelonephritis, sciatica, musculoskeletal spasm, amongst others. On exam, patient had right SI joint tenderness, patient had no other midline spinal tenderness. Patient had no CVA tenderness. Patient was able to ambulate without difficulties. Patient had no associated trauma therefore low concern for fracture. Patient did have point tenderness around her SI joint therefore pelvis x-ray was obtained. Given history of urinary tract infections and pyelonephritis, UA was obtained. Patient has RA unable to take Tylenol and Motrin therefore patient was given Robaxin as well as a lidocaine patch for symptomatic management in the emergency department. Patient was able to ambulate without difficulties. No further workup was felt to be indicated at this time. Pelvis x-ray was reviewed and interpreted by myself and showed no acute pathology. Patient's UA showed no evidence of infection. She was notified that we she would be called if her urine culture came back positive. Patient was given Robaxin and lidocaine patches for her symptoms and was advised to return to the emergency department for any acute or worsening symptoms. Critical Care Critical Care Time Critical Care Time: No
--- OUTSIDE RECORDS SUMMARY | 2024-11-15 21:14 | XMS_ITS | Encounter Summary ---
Author Organization [facility] Address [address] [place] [address] Care Team Providers Care It Architecture Consultant Name Role Phone Dru Giles MD Primary Care Provider [phone] Encounter Details Date Type Department Care Team (Late st Contact Info) Description 09/27/[address] [facility] [address], [address] [place] [id number] [place] [address] Social History Tobacco Use Types Packs/Day Years [...] if so, when to start them CB: [phone] documented in this encounter Plan of Treatment Upcoming Encounters Date Type Department Care Team (Late st Contact Info) Description 12/29/2024 1:30 PM EDT Office Visit [facility] Specialties [address], [address] [place] [address] Jesus Tanner MD [address] [place] [address] 02/07/2025 10:20 AM EST Office Visit [facility] [address], [address] [place] [address] Melyssa Encinas, PA [address] [place] [address] 02/24/2025 3:00 PM EST Office [facility] [address], [address] [place] [address] Rebekah Aragon PA [address] [place] [address] 07/12/2025 11:00 AM EDT Ovarian Cancer Screening [facility] Gynecology [address] [place] [address] documented as of this encounter Goals Goal [...] documented as of this encounter Care Teams It Architecture Consultant Relationship Specialty Start Date End Date Dru Giles MD PCP - General 11/21/21 documented as of this encounter
--- OUTSIDE RECORDS SUMMARY | 2024-11-15 21:14 | XMS_ITS | Encounter Summary ---
Author Organization Healthcare Address [address] [place] [address] Care Team Providers Care Senior Engineering Team Leader Name Role Phone Dru Giles MD Primary Care Provider [phone] Encounter Details Date Type Department Care Team (Late st Contact Info) Description 05/06/2024 Orders Only External Location [address] [place] [address] Provider, External Social History Tobacco Use Types [...] Description 12/29/2024 1:30 PM EDT [facility] [address], [address] [place] [address] Jesus Tanner MD [address] [place] [address] 02/07/2025 10:20 AM EST Office Visit [facility] Specialties [address], [address] [place] [address] Melyssa Encinas PA [address] [place] [address] 02/24/2025 3:00 PM EST Office Visit [facility] Specialties [address], [address] [place] [address] Rebekah Aragon PA [address] [place] [address] 07/12/2025 11:00 AM EDT Ovarian Cancer Screening [facility] Gynecology [address] [facility], [address]rd [place] [address] documented as of this encounter Procedures Procedure [...] as of this encounter Care Teams Senior Engineering Team Leader Relationship Specialty Start Date End Date Dru Giles MD PCP - General 11/21/21 documented as of this encounter
--- OUTSIDE RECORDS SUMMARY | 2024-11-15 21:14 | XMS_ITS | Encounter Summary ---
Author Organization Healthcare Address [address] [place] [address] Care Team Providers Care Aircraft Machinist Name Role Phone Dru Giles MD Primary Care Provider [phone] Encounter Details Date Type Department Care Team (Late st Contact Info) Description 05/17/2024 Orders Only External Location [address] [place] [address] Provider, External Social History Tobacco Use Types [...] Description 12/29/2024 1:30 PM EDT Office Visit [facility] [address] [place] [address] Jesus Tanner MD [address] [place] [address] 02/07/2025 10:20 AM EST Office Visit [facility] Specialties [address], [address] [place] [address] Melyssa Encinas PA [address] [place] [address] 02/24/2025 3:00 PM EST Office Visit [facility] Specialties [address], [address] [place] [address] Rebekah Aragon PA [address] [place] [address] 07/12/2025 11:00 AM EDT Ovarian Cancer Screening [facility] Gynecology [address] [facility], [address]rd [place] [address] documented as of this encounter Procedures Procedure [...] documented as of this encounter Care Teams Aircraft Machinist Relationship Specialty Start Date End Date Dru Giles MD PCP - General 11/21/21 documented as of this encounter
--- OUTSIDE RECORDS SUMMARY | 2024-11-15 21:14 | XMS_ITS | Encounter Summary ---
Author Organization Healthcare Address [address] [place] [address] Care Team Providers Care Web Offset Press Feeder Name Role Phone Dru Giles MD Primary Care Provider [phone] Reason for Visit * Reason Onset Date Comments HCN - Patient Message 08/23/2024 Returning Call Returning call Encounter Details Date Type Department Care Team (Late st Contact Info) Description 08/23/2024 Telephone [facility] Medicine Specialties [address] [place] [address] Melyssa Encinas PA [address] [place] [address] HCN - Patient Message (Returning [...] optimal time of day to reach caller: [phone] Note: Please do not reply to this [...] Description 12/29/2024 1:30 PM EDT Office Visit [facility] Medicine Specialties [address], [address] [place] [address] Jesus Tanner MD [address] [place] [address] 02/07/2025 10:20 AM EST Office Visit [facility] Medicine Specialties [address] [place] [address] Melyssa Encinas PA [address] [place] [address] 02/24/2025 3:00 PM EST Office Visit [facility] Medicine Specialties [address], [address] [place] [address] Rebekah Aragon PA [address] [place] [address] 07/12/2025 11:00 AM EDT Ovarian Cancer Screening [facility] Gynecology [address], [address] [place] [address] documented as of this encounter Visit Diagnoses [...] documented as of this encounter Care Teams Web Offset Press Feeder Relationship Specialty Start Date End Date Dru Giles MD PCP - General 11/21/21 documented as of this encounter
--- OUTSIDE RECORDS SUMMARY | 2024-11-15 21:14 | XMS_ITS | Encounter Summary ---
Author Organization Healthcare Address [address] [place] [address] Care Team Providers Care Clin Nurse Name Role Phone Dru Giles MD Primary Care Provider [phone] Encounter Details Date Type Department Care Team (Latest Contact Info) Description 11/15/2024 Travel Social History Tobacco Use Types Packs/Day [...] 11/15/2024 10:39 AM EDT Jenn Reinoso a Feeling down, depressed, or hopeless Not at [...] 11/15/2024 10:39 AM EDT Jenn Reinoso * If you checked off any problems on this questionnaire so far, Question Answer Date of Assessment Author How difficult have these problems made it for you to do your work, take care of things at home, or get along with other people? Not difficult at all 11/15/2024 10:39 AM EDT Sree Reinoso documented as of this encounter Plan of Treatment Upcoming Encounters Date Type Department Care Team (Late st Contact Info) Description 12/29/2024 1:30 PM EDT Office Visit [facility] Medicine Specialties [address] [place] [address] Jesus Tanner MD [address] [place] [address] 02/07/2025 10:20 AM EST Office Visit [facility] Specialties [address], [address] [place] [address] Melyssa Encinas PA [address] [place] [address] 02/24/2025 3:00 PM EST Office Visit [facility] Specialties [address], [address] [place] [address] Rebekah Aragon PA [address] [place] [address] 07/12/2025 11:00 AM EDT Ovarian Cancer Screening [facility] Gynecology [address] [place] [phone] documented as of this encounter Goals Goal [...] documented as of this encounter Care Teams Clin Nurse Relationship Specialty Start Date End Date Dru Giles MD PCP - General 11/21/21 documented as of this encounter
--- OUTSIDE RECORDS SUMMARY | 2024-11-15 21:14 | XMS_ITS | Clinical Summary ---
Author Organization [facility] Address [address] [place] [address] Care Team Providers Care Assistant Offset Press Operator Name Role Phone Dru Giles MD Primary Care Provider [phone] Allergies Active Allergy Reactions Criticality Noted Date Comments Bee Venom Anaphylaxis High 04/03/2023 Compleat Other - please document in the comment field,Hives High 09/08/2023 Diphth-Acell Pertussis-Tetanus Other - please document in the comment field Low 09/08/2023 Dtap-Hepatitis B Recomb-Ipv Other - please document in the comment field Low 04/03/2023 Uuah-Jla-Fkb-Hepatitis B Recmb Other - please document in [...] Hives High 04/03/2023 Medications ergocalciferol 1.25 MG (33260 UT) capsule Take 1 capsule by mouth 1 time per week. Active montelukast (Singulair) 10 MG tablet Take 1 tablet by mouth nightly. Active valsartan (Diovan) 320 MG tablet Take 1 tablet by mouth every morning. Down to 160 Active Multiple Vitamins-Mineral s (EQ One Daily Taggstr Plain Vanilla) tablet Take 1 tablet by mouth daily. [...] Active ketotifen (Zaditor) 0.035 % ophthalmic solution Active Glucagon, rDNA, (Glucagon Emergency) 1 MG kit Active meclizine (Antivert) 25 MG tablet 1 tablet. 023 Active ondansetron (Zofran) 4 MG tablet 1 tablet (4 mg). 024 Active Zegalogue 0.6 MG/0.6ML solution auto-injector USE DIRECTED NEEDED with epipen FOR anaphylactic reactions Active triamcinolone (Kenalog) 0.1 % cream apply a SMALL AMOUNT topically TO THE affected area(s) TWICE DAILY FOR ITCHING OR RASH avoid USE ON face, groin, OR arm pits Active methotrexate 2.5 MG tabletIndication s:Inflammatory polyarthritis [...] skin every 14 days. 0.8 each 3 Active Nystop 097248 UNIT/GM powder apply topically to the affected [...] day. 60 tablet 11 025 2025 Active pantoprazole (Protonix) 40 MG EC tabletIndication s:Gastroesophage al reflux disease, unspecified whether esophagitis present Take 1 tablet by mouth daily before breakfast. Do not crush, chew, or split. 90 tablet 3 025 Active linaCLOtide (Linzess) 145 MCG capsuleIndicatio ns:Chronic constipation Take 1 capsule by mouth daily before breakfast. 90 capsule 1 025 Active metoclopramide (Reglan) 5 MG tablet Take [...] breakfast. 30 capsule 3 024 2024 Discontinued pantoprazole (Protonix) 40 MG EC tabletIndication s:Gastroesophage al reflux disease, unspecified whether esophagitis present Take 1 tablet by mouth daily before breakfast. Do not crush, chew, or split. 90 tablet 3 025 2024 Discontinued(R eorder) linaCLOtide (Linzess) 72 MCG capsule capsule Take 1 capsule by mouth daily. 30 capsule 11 025 2024 Discontinued Active Problems Problem Noted Date [...] and depressed mood 04/19/2024 04/19/2024 Overview (04/19/2024): Ronels health issues cause many emotions to [...] Encounters Date Type Department Care Team Description 11/15/2024 10:20 AM EDT Office Visit [facility] [address], [address] [place] [address] Melyssa Encinas, PA Chronic constipation (Primary Dx); Gastroesophageal reflux disease, unspecified whether esophagitis present 11/15/2024 Travel 11/05/2024 Results Follow-Up [facility] [address], [address] [place] [address] Rebekah Aragon PA 11/04/2024 3:40 PM EDT Office Visit [facility] [address], [address] Floor [facility] [place] [address] Rebekah Aragon PA On methotrexate therapy (Primary Dx); Cirrhosis of liver without ascites, unspecified hepatic cirrhosis type (CMS/HCC) 11/04/2024 Travel 11/01/[address] [facility] [address], [address] [facility] [place] [address] Yesi Melgar 10/26/[address] [facility] Medicine Specialties [address], [address] [place] [address] Yesi Melgar 10/24/2024 Results Follow-Up [facility] [address], [address] [place] [address] Ari Barfield MD 10/14/2024 12:41 PM EDT Anesthesia Event [facility] [address] [phone] Alverto Barney MD 10/14/2024 11:56 AM EDT - 10/14/2024 11:59 PM EDT Hospital Encounter [facility] [address] [phone] Alverto Barney MD Konjeti, Venkata Rajesh, MD Wellman, Tyler M, CRNA Guagenti, Patricia L Gastroesophageal reflux disease, unspecified whether esophagitis present; History of cirrhosis; Bilious vomiting with nausea Discharge Disposition: Home or Self Care 10/14/2024 Travel 10/07/2024 1:20 PM EDT Office Visit [facility] Medicine Specialties [address] [place] [address] Rebekah Aragon PA Decompensated cirrhosis (CMS/HCC) (Primary Dx); Liver lesion; High risk medication use; Elevated liver enzymes; Other ascites; Hepatic encephalopathy (CMS/HCC) 10/07/2024 Travel 09/29/[address] [facility] [address] [place] [address] Rebekah Aragon PA HCN - Patient Message 09/27/[address] [facility] Medicine Specialties [address] [place] [address] Yesi Melgar 09/21/[address] [facility] Medicine Specialties [address] [facility] [place] [address] Jesus Tanner MD 09/20/2024 1:30 PM EDT Office Visit [facility] Medicine Specialties [address], [address] [place] [address] Jesus Tanner MD Inflammatory polyarthritis ([facility]); High risk medication use 09/20/[address] [facility]ties [address], [address] [place] [phone] Guille Escobar [facility] 09/20/2024 Travel 08/31/[address] [facility] Medicine Specialties [address], [address] [place] [address] Una Gibbons RN 08/27/2024 Telephone [facility] Specialties [address], [address] [place] [phone] Rekha Rodas RN 08/27/2024 Telephone [facility] Specialties [address], [address] [place] [address] Jesus Tanner MD 08/24/[address] [facility] Medicine Specialties [address], [address]nd [place] [phone] Yesi Melgar 08/23/2024 10:00 AM EDT Office Visit [facility] Specialties [address], [address] [place] [phone] Melyssa Encinas PA Gastroesophageal reflux disease, unspecified whether esophagitis present (Primary Dx); Chronic constipation; History of cirrhosis; Bilious vomiting with nausea 08/23/2024 Telephone [facility] Specialties [address], [address] [place] [phone] Melyssa Encinas PA HCN - Patient Message (Returning Call /Returning call ) 08/23/2024 Results Follow-Up [facility] Specialties [address], [address] [place] [phone] Melyssa Encinas PA 08/23/[address] [facility] Medicine Specialties [address], [address] [place] [phone] Melyssa Encinas PA Normocytic anemia (Primary Dx) 08/23/2024 Travel 08/20/2024 Telephone [facility] Specialties [address], [address] [place] [address] Rekha Rodas RN 08/20/2024 Telephone [facility] Specialties [address], [address] [place] [address] Jesus Tanner MD from Last 3 Months [...] Mass Index 45.96 11/15/2024 10:36 AM EDT Plan of Treatment Upcoming Encounters Date Type Department Care Team (Late st Contact Info) Description 12/29/2024 1:30 PM EDT Office Visit [facility] Medicine Specialties [address], [address] [place] [address] Jesus Tanner MD [address] [place] [address] 02/07/2025 10:20 AM EST Office Visit [facility] Specialties [address], [address] [place] [address] Melyssa Encinas PA [address] [place] [phone] 02/24/2025 3:00 PM EST Office Visit [facility] [address], [address] [place] [address] Rebekah Aragon, PA [address] [place] [phone] 07/12/2025 11:00 AM EDT Ovarian Cancer Screening [facility] [address] [place] [address] Health Maintenance Due Date Last Done Comments [...] (2 of 2 - PCV) 02/19/2023 02/19/2022 [id number] Vaccine ( season) 2024 12/12/2021, 01/03/2021, 06/07/2020, Additional history exists [facility]-Influenza Vaccine (#1) 11/08/202412/17, 01/01/2023, 01/04/2022, Additional history exists [facility]-Depression Screening 11/15/2025 11/15/2024, 09/0 10/2024 Colonoscopy 06/01/2031 05/31/2021 [facility]-Colorectal Cancer Screening 06/01/2031 [...] 7.8 <10.0 ng/mL 11/04/2024 6:29 PM EDT [facility] Blood Venous blood specimen / Unknown Venipuncture / Unknown 11/04/2024 4:54 PM EDT 11/04/2024 4:55 PM EDT Narrative [facility] - 11/04/2024 6:29 PM EDT Performed by Brandi electrochemiluminescent immunoassay which is traceable to the 1st AFP IRP WHO Reference standard 72/255. Results obtained with different test methods or kits cannot be used interchangeably. Rebekah TOTH LAB BLOOD ORDERABLES Final Resu lt Performing Organization Address [facility] Co de Phone Number [facility] [address] [place] [address] * (ABNORMAL) Protime-INR (11/04/2024 4:54 PM EDT) Only the most recent of2 resultswithin the time period is included. Prothrombin Time 18.0(H) 12.0 - 14.3 sec LAB COAGULATION METHOD 11/04/2024 6:15 PM EDT [facility] INR 1.5(H) 0.9 - 1.1 LAB COAGULATION METHOD 11/04/2024 6:15 PM EDT [facility] Blood Venous blood specimen / Unknown Venipuncture / Unknown 11/04/2024 4:54 PM EDT 11/04/2024 4:55 PM EDT Narrative [facility] - 11/04/2024 6:15 PM EDT OPTIMAL INR RANGES FOR PATIENT ON ORAL ANTICOAGULANT THERAPY Prevention of venous thromboembolism INR 2.0 to 3.0 In patients with heart disease: Atrial fibrillation INR 2.0 to 3.0 Valvular heart disease INR 2.0 to 3.0 Tissue heart valves INR 2.0 to 3.0 Mechanical prosthetic valves INR 2.5 to 3.5 Prevention of recurrent ND INR 2.5 to 3.5 Rebekah TOTH LAB BLOOD ORDERABLES Final Resu lt Performing Organization Address [facility] Co de Phone Number [facility] [address] [place] [address] * (ABNORMAL) CBC and differential (11/04/2024 4:54 PM EDT) Only the most recent of3 resultswithin the time period is included. WBC Count 4.60 3.70 - 10.30 10*3/uL LAB HEMATOLOGY METHOD 11/04/2024 8:10 PM EDT [facility] RBC Count 3.73(L) 3.90 - 5.20 10*6/uL LAB HEMATOLOGY METHOD 11/04/2024 8:10 PM EDT [facility] HGB 11.1(L) 11.2 - 15.7 g/dL LAB HEMATOLOGY METHOD 11/04/2024 8:10 PM EDT [facility] HCT 36.3 34.0 - 45.0 % LAB HEMATOLOGY METHOD 11/04/2024 8:10 PM EDT [facility] Platelet Count 77(L) 155 - 369 10*3/uL LAB HEMATOLOGY METHOD 11/04/2024 8:10 PM EDT [facility] MCV 97 79 - 98 fL LAB HEMATOLOGY METHOD 11/04/2024 8:10 PM EDT [facility] MCH 29.8 26.0 - 32.0 pg LAB HEMATOLOGY METHOD 11/04/2024 8:10 PM EDT [facility] MCHC 30.6(L) 30.7 - 35.5 g/dL LAB HEMATOLOGY METHOD 11/04/2024 8:10 PM EDT [facility] RDW 13.3 11.5 - 14.5 % LAB HEMATOLOGY METHOD 11/04/2024 8:10 PM EDT [facility] MPV 11.2 8.8 - 12.5 fL LAB HEMATOLOGY METHOD 11/04/2024 8:10 PM EDT [facility] nRBC 0.0 <=0.0 per 100 WBCs LAB HEMATOLOGY METHOD 11/04/2024 8:10 PM EDT [facility] Differential Type Automated LAB HEMATOLOGY METHOD 11/04/2024 8:10 PM EDT [facility] Neutrophils % 55 % LAB HEMATOLOGY METHOD 11/04/2024 8:10 PM EDT [facility] Lymphocytes % 32 % LAB HEMATOLOGY METHOD 11/04/2024 8:10 PM EDT [facility] Monocytes % 9 % LAB HEMATOLOGY METHOD 11/04/2024 8:10 PM EDT [facility] Eosinophils % 3 % LAB HEMATOLOGY METHOD 11/04/2024 8:10 PM EDT [facility] Basophils % 1 % LAB HEMATOLOGY METHOD 11/04/2024 8:10 PM EDT [facility] Immature Granulocytes % 0 % LAB HEMATOLOGY METHOD 11/04/2024 8:10 PM EDT [facility] Neutrophils Absolute 2.56 1.60 - 6.10 10*3/uL LAB HEMATOLOGY METHOD 11/04/2024 8:10 PM EDT [facility] Lymphocytes Absolute 1.46 1.20 - 3.90 10*3/uL LAB HEMATOLOGY METHOD 11/04/2024 8:10 PM EDT [facility] Monocytes Absolute 0.42 0.30 - 0.90 10*3/uL LAB HEMATOLOGY METHOD 11/04/2024 8:10 PM EDT [facility] Eosinophils Absolute 0.12 0.00 - 0.50 10*3/uL LAB HEMATOLOGY METHOD 11/04/2024 8:10 PM EDT [facility] Basophils Absolute 0.03 0.00 - 0.10 10*3/uL LAB HEMATOLOGY METHOD 11/04/2024 8:10 PM EDT [facility] Immature Granulocytes Absolute 0.01 0.00 - 0.06 10*3/uL LAB HEMATOLOGY METHOD 11/04/2024 8:10 PM EDT [facility] Blood Venous blood specimen / Unknown Venipuncture / Unknown 11/04/2024 4:54 PM EDT 11/04/2024 4:55 PM EDT Narrative [facility] - 11/04/2024 8:10 PM EDT Therapeutic decision making should be based on absolute values, rather than percentages. Rebekah TOTH LAB BLOOD ORDERABLES Final Resu lt Performing Organization Address [facility]/ZIP Co de Phone Number [facility] [address] [place] [address] * (ABNORMAL) Ammonia, Plasma (11/04/2024 4:54 PM EDT) Ammonia 58(H) 11 - 51 umol/L 11/04/2024 5:48 PM EDT [facility] Blood Venous blood specimen / Unknown Venipuncture / Unknown 11/04/2024 4:54 PM EDT 11/04/2024 4:55 PM EDT us Rebekah TOTH LAB BLOOD ORDERABLES Final Resu lt Performing Organization Address City/[facility]/ZIP Co de Phone Number [facility] [address] [place] [address] * (ABNORMAL) Comprehensive metabolic panel (11/04/2024 4:54 PM EDT) Only the most recent of3 resultswithin the time period is included. Glucose, Plasma 74 74 - 99 mg/dL 11/04/2024 6:21 PM EDT [facility] BUN, Plasma 12 7 - 21 mg/dL 11/04/2024 6:21 PM EDT [facility] Creatinine, Plasma 0.82 0.60 - 1.10 mg/dL 11/04/2024 6:21 PM EDT [facility] BUN/Creatinine Ratio 15 11/04/2024 6:21 PM EDT [facility] Sodium, Plasma 141 136 - 145 mmol/L 11/04/2024 6:21 PM EDT [facility] Potassium, Plasma 4.3 3.6 - 4.9 mmol/L 11/04/2024 6:21 PM EDT [facility] Chloride, Plasma 109(H) 97 - 107 mmol/L 11/04/2024 6:21 PM EDT [facility] CO2, Plasma 20(L) 22 - 29 mmol/L 11/04/2024 6:21 PM EDT [facility] Anion Gap 12 6 - 16 mmol/L 11/04/2024 6:21 PM EDT [facility] Total Calcium, Plasma 9.5 8.9 - 10.2 mg/dL 11/04/2024 6:21 PM EDT [facility] Total Protein 7.8 6.3 - 7.9 g/dL 11/04/2024 6:21 PM EDT [facility] Albumin, Plasma 3.4(L) 3.5 - 5.2 g/dL 11/04/2024 6:21 PM EDT [facility] AST, Plasma 70(H) 10 - 35 U/L 11/04/2024 6:21 PM EDT [facility] Comment:Hemolyzed, result ma y be falsely increased. ALT, Plasma 30 10 - 35 U/L 11/04/2024 6:21 PM EDT [facility] Alkaline Phosphatase, Plasma 199(H) 46 - 142 U/L 11/04/2024 6:21 PM EDT [facility] Total Bilirubin, Plasma 0.9 0.2 - 1.1 mg/dL 11/04/2024 6:21 PM EDT [facility] eGFRcr 82.5 mL/min/1.7 3m*2 11/04/2024 6:21 PM EDT [facility] Comment:Reported eGFRcr in m L/min/1.73m2 is based the CKD-EPI 2020 equation that does not use a race coefficient. Blood Venous blood specimen / Unknown Venipuncture / Unknown 11/04/2024 4:54 PM EDT 11/04/2024 4:55 PM EDT us Rebekah TOTH LAB BLOOD ORDERABLES Final Resu lt [facility] [address] [place] [address] * EGD (10/14/2024 1:00 PM EDT) Anatomical [...] Ari Barfield MD Proceduralist Reji Dewey Endo Business Director Israel Murrell, [employer] Preprocedure A history and physical has been [...] PM EDT) Case Report Surgical Pathology Case: [id number] Authorizing Provider: Ari Barfield, Collected: 10/14/2024 1253 MD Ordering Location: [facility] S Endoscopy Received: 10/14/2024 1416 Pathologist: Bubba Bryan MD Specimen: Stomach, biopsy 10/15/2024 4:29 PM EDT [facility] Final Diagnosis STOMACH, BIOPSY: - REACTIVE GASTROPATHIC CHANGES - NO EVIDENCE OF HELICOBACTER-LIKE ORGANISMS ON ROUTINE STAIN 10/15/2024 4:29 PM EDT [facility] at 1629 EDT Clinical [...] duodenum appeared normal. 10/15/2024 4:29 PM EDT [facility] Gross Description A. BIOPSY Received in formalin labeled b iopsy, stomach , are 2 pink-white soft fragments of tissue measuring from 0.3 cm to 0.6 cm in greatest dimension. Entirely submitted in cassette A1. Cold Time: 1m Lakisha Dubois 10/15/2024 4:29 PM EDT [facility] Note: A resident was involved in the service. I attest I examined the relevant preparations for the specimens and confirmed the diagnosis or interpretation. 10/15/2024 4:29 PM EDT [facility] Tissue Stomach structure / Unknown 10/14/2024 12:53 PM EDT 10/14/2024 2:16 PM EDT [facility] Sergei Barfield MD LAB PATHOLOGY ORDERABL ES Final Result [facility] [address] [place] [address] * (ABNORMAL) Sedimentation Rate, Automated (09/20/2024 2:05 PM EDT) Only the most recent of2 resultswithin the time period is included. Sedimentation Rate 58(H) <30 mm/hr 2024 3:19 PM EDT [facility] Blood Venous blood specimen / Unknown Venipuncture / Unknown 09/20/2024 2:05 PM EDT 09/20/2024 2:05 PM EDT Jesus Tanner MD LAB BLOOD ORDERABLES Final Re sult Performing Organization Address [facility]/ZIP Co de Phone Number [facility] [address] [place] [address] * C-reactive protein (09/20/2024 2:05 PM EDT) Only the most recent of2 resultswithin the time period is included. CRP, Plasma 6.7 <=8.0 mg/L 09/20/2024 3:14 PM EDT [facility] Blood Venous blood specimen / Unknown Venipuncture / Unknown 09/20/2024 2:05 PM EDT 09/20/2024 2:05 PM EDT Narrative [facility] - 09/20/2024 3:14 PM EDT This CRP test is appropriate for assessment of infection, systemic inflammation and/or tissue injury. To assess cardiovascular disease risk order high sensitivity CRP (CRPH). Jesus Tanner MD LAB BLOOD ORDERABLES Final Re sult Performing Organization Address [facility] Co de Phone Number [facility] [address] [place] [address] * (ABNORMAL) Iron & Total Iron Binding Capacity, Plasma (Includes Transferrin) (08/23/2024 10:38 AM EDT) Iron, Plasma 43 30 - 160 ug/dL 08/23/2024 1:07 PM EDT [facility] Transferrin, Plasma 187(L) 200 - 360 mg/dL 08/23/2024 1:07 PM EDT [facility] Total Iron Binding Capacity, Plasma 234(L) 240 - 450 ug/mL 08/23/2024 1:07 PM EDT [facility] Transferrin Saturation 18 14 - 50 % 08/23/2024 1:07 PM EDT [facility] Blood Venous blood specimen / Unknown Venipuncture / Unknown 08/23/2024 10:38 AM EDT 08/23/2024 10:39 AM EDT us Melyssa TOTH LAB BLOOD ORDERABLES Final Resu lt Performing Organization Address City/[facility]/[place] [address] * Folate (08/23/2024 10:38 AM EDT) Folate, Serum >20.0 >4.6 ng/mL 08/23/2024 1:31 PM EDT [facility] Blood Venous blood specimen / Unknown Venipuncture / Unknown 08/23/2024 10:38 AM EDT 08/23/2024 10:39 AM EDT us Melyssa TOTH LAB BLOOD ORDERABLES Final Resu lt Performing Organization Address [facility]/[place] [address] * (ABNORMAL) Ferritin (08/23/2024 10:38 AM EDT) Ferritin, Serum 456(H) 13 - 150 ng/mL 08/23/2024 11:54 AM EDT [facility] Blood Venous blood specimen / Unknown Venipuncture / Unknown 08/23/2024 10:38 AM EDT 08/23/2024 10:39 AM EDT Jesus Tanner MD LAB BLOOD ORDERABLES Final Re sult Performing Organization Address City/[facility]/[place] [address] * Vitamin B12 (08/23/2024 10:38 AM EDT) Vitamin B12, Serum 762 210 - 1,033 pg/mL 08/23/2024 1:31 PM EDT [facility] Blood Venous blood specimen / Unknown Venipuncture / Unknown 08/23/2024 10:38 AM EDT 08/23/2024 10:39 AM EDT us Melyssa TOTH LAB BLOOD ORDERABLES Final Resu lt Performing Organization Address [facility] Co de Phone Number [facility] [address] [place] [address] * HIV 1 & 2 Antibody/Antigen Screen (05/27/2024 1:38 PM EDT) Pathologist [facility] HIV 1 & 2 Antibody/Antigen Screen Non Reactive Non Reactive 05/27/2024 2:56 PM EDT [facility] Comment:Screening for HIV 1 & 2 antibodies, and P24 antigen is NONREACTIVE. No confirmatory testing is required. Blood Venous blood specimen / Unknown Venipuncture / Unknown 05/27/2024 1:38 PM EDT 05/27/2024 1:41 PM EDT Marv Brown MD LAB BLOOD ORDERABLES Final Res ult Performing Organization Address [facility] Co de Phone Number [facility] [address] [place] [address] * Hepatitis C Antibody (04/19/2024 3:28 PM EST) [facility] Hepatitis C Antibody Negative Negative 04/19/2024 5:40 PM EST [facility] Blood Venous blood specimen / Unknown Venipuncture / Unknown 04/19/2024 3:28 PM EST 04/19/2024 3:29 PM EST Jesus Tanner MD LAB BLOOD ORDERABLES Final Re sult Performing Organization Address City/[facility] Co de Phone Number [facility] [address] [place] [address] * Hemoglobin A1c (03/28/2022 12:04 PM EST) Pathologist [facility] Hemoglobin A1c 5.5 <5.7 % 03/28/2022 2:10 PM EST [facility] Blood Venous blood specimen / Unknown [...] Adults <6.0% Children and Adolescents <7.5% Source: [place] [employer]. Standards of medical care in diabetes,2017. Diabetes Care.2017:40 (suppl 1):S1-S135. HbA1c assay performed by an ion-exchange chromatography method that is certified traceable to the DCCT. us Rebekah TOTH LAB BLOOD ORDERABLES Final Resu lt [facility] [address] [place] [address] * Colonoscopy (05/31/2021 8:36 AM EDT) Anatomical [...] Mares, RN Endo Nurse MOUNA Grigsby CRNA, RN Endo Nurse Preprocedure A history and [...] of bowel preparation was evaluated using the Craig Bowel Preparation Scale with scores of: right [...] Duodenum SURGICAL PATHOLOGY EXAM Aamir Banuelos MD 05/31/202111 B : gastric Tissue Stomach SURGICAL PATHOLOGY EXAM Aamir Banuelos MD 05/31/202113 C : terminal ileum Tissue Ileum SURGICAL PATHOLOGY EXAM Aamir Banuelos MD 05/31/2021825 D : random colon Tissue Large Intestine SURGICAL PATHOLOGY EXAM Aamir Banuelos MD 05/31/2021825 Findings The terminal ileum appeared normal. Performed random biopsy. The entire colon appeared normal. Performed random biopsy. Few small diverticula in the sigmoid colon Aamir Banuelos MD GI PROCEDURE ORDERABLES Fin al Result from Last 3 Months or Most Recently Relevant to Health Maintenance Additional Health Concerns Active Problems Noted Date Diagnosed Date Autogenerated Problem 08/24/2024 Insurance [facility] MEDICARE Advance Directives * Full Code (Latest Code Status on File) Date Activated Date Inactivated Comments 04/05/2022 11:15 AM 04/06/2022 2:46 AM Question Answer Comments Patient has decision-making capacity? Yes * Full Code Date Activated Date Inactivated Comments 10/02/2020 12:39 PM 10/19/2020 8:02 PM Question Answer Comments Patient has decision-making capacity? Yes Care Teams Assistant Offset Press Operator Relationship Specialty Start Date End Date Dru Giles MD PCP - General 11/21/21
--- OUTSIDE RECORDS SUMMARY | 2024-11-15 21:14 | XMS_ITS | Encounter Summary ---
Author Organization Healthcare Address [address] [place] [address] Care Team Providers Care Dust Operator Name Role Phone Dru Giles MD Primary Care Provider [phone] Encounter Details Date Type Department Care Team (Late st Contact Info) Description 10/24/2024 Results Follow-Up [facility] Medicine Specialties [address], [address] [place] [address] Ari Barfield MD [address] [place] [address] Social History Tobacco Use Types [...] Description 12/29/2024 1:30 PM EDT Office Visit [facility] Medicine Specialties [address], [address] [place] [address] Jesus Tanner MD [address] [place] [address] 02/07/2025 10:20 AM EST Office Visit [facility] [address], [address] [place] [address] Melyssa Encinas PA [address] [facility] [address] [place] [address] 02/24/2025 3:00 PM EST Office Visit [facility] [address], [address] [place] [address] Rebekah Aragon PA [address] [facility] [address] [place] [address] 07/12/2025 11:00 AM EDT Ovarian Cancer Screening [facility] Gynecology [address] [facility], 3rd [place] [address] documented as of this encounter Goals Goal [...] documented as of this encounter Care Teams Dust Operator Relationship Specialty Start Date End Date Dru Giles MD PCP - General 11/21/21 documented as of this encounter
--- OUTSIDE RECORDS SUMMARY | 2024-11-15 21:14 | XMS_ITS | Encounter Summary ---
Author Organization [facility] Address [address] [place] [address] Care Team Providers Care Director Airport Operations Name Role Phone Dru Giles MD Primary Care Provider [phone] Encounter Details Date Type Department Care Team (Late st Contact Info) Description 10/26/2024 Telephone [facility] Medicine Specialties [address], [address] [place] [address] [place] [address] Social History Tobacco Use Types Packs/Day Years [...] phone, no answer * Telephone Encounter - Gabreilla Machado - 10/29/2024 10:33 AM EDT Received [...] has follow up scheduled on 11/04 CB: [phone] * Telephone Encounter - Yesi Melgar - [...] up as she hadn't heard anything CB: [phone] * Telephone Encounter - Yesi Melgar - 10/26/2024 9:09 AM EDT Patient called She was recently put on a new medication - xifaxan and lactulose She hasn't had a bowel movement in 4 days - she had a small one yesterday but it didn't really helpmuch She's wondering what she should do to help CB: [phone] documented in this encounter Plan of Treatment Upcoming Encounters Date Type Department Care Team (Late st Contact Info) Description 12/29/2024 1:30 PM EDT Office Visit [facility] Medicine Specialties [address], [address]nd [place] [address] Jesus Tanner MD [address] [place] [address] 02/07/2025 10:20 AM EST Office Visit [facility] Medicine Specialties [address], 2[address] [place] [address] Melyssa Encinas PA [address] [place] [address] 02/24/2025 3:00 PM EST Office Visit [facility] Specialties [address], [address] [place] [address] Rebekah Aragon, JANEY [address] [place] [address] 07/12/2025 11:00 AM EDT Ovarian Cancer Screening [facility]ne[facility] [address], [address]rd [place] [address] documented as of this encounter Goals Goal [...] as of this encounter Care Teams Director Airport Operations Relationship Specialty Start Date End Date Dru Giles MD PCP - General 11/21/21 documented as of this encounter
--- OUTSIDE RECORDS SUMMARY | 2024-11-15 21:14 | XMS_ITS | Encounter Summary ---
Author Organization Healthcare Address [address] [place] [address] Care Team Providers Care Rn Correctional Name Role Phone Dru Giles MD Primary Care Provider [phone] Encounter Details Date Type Department Care Team (Late st Contact Info) Description 11/05/2024 Results Follow-Up [facility] Medicine Specialties [address], [address] [place] [address] Rebekah Aragon PA [address] [place] [address] Social History Tobacco Use Types [...] Description 12/29/2024 1:30 PM EDT Office Visit [facility] Medicine Specialties [address], [address]nd [place] [address] Jesus Tanner MD [address] [place] [address] 02/07/2025 10:20 AM EST Office Visit [facility] Medicine [facility] [address], [address]nd [place] [address] Melyssa Encinas PA [address] [facility] [address] [place] [address] 02/24/2025 3:00 PM EST Office Visit [facility] Medicine Specialties [address], [address]nd [place] [address] Rebekah Aragon PA [address] [facility] [address] [place] [address] 07/12/2025 11:00 AM EDT Ovarian Cancer Screening [facility] Gynecology [address] [facility], 3rd [place] [address] documented as of this encounter Goals Goal [...] as of this encounter Care Teams Rn Correctional Relationship Specialty Start Date End Date Dru Giles MD PCP - General 11/21/21 documented as of this encounter
--- OUTSIDE RECORDS SUMMARY | 2024-11-15 21:14 | XMS_ITS | Encounter Summary ---
Author Organization Healthcare Address [address] [place] [id number] Care Team Providers Care Thread Twister Name Role Phone Dru Giles MD Primary Care Provider [phone] Reason for Visit * Reason Onset Date Comments HCN - Patient Message 09/29/2024 Encounter Details Date Type Department Care Team (Late st Contact Info) Description 09/29/2024 Telephone [facility] Specialties [address], [address] [place] [address] Rebekah Aragon, JANEY [address] [place] [address] HCN - Patient Message Social [...] fasting for 10/07 appointment Best contact number: [phone] (home) Optimal time of day to reach caller: ANYTIME Additional comments/information from caller: Note: Please do not reply to this message. Follow-up communication and further actions as a result of this message need to be communicated with the patient directly, if the patient is not active onMyChart. If the patient is active on MyChart, they will receive notification of the communication/outcome via Flybits. documented in this encounter Plan of Treatment Upcoming Encounters Date Type Department Care Team (Late st Contact Info) Description 12/29/2024 1:30 PM EDT Office Visit [facility] Medicine Specialties [address], [address] [place] [address] Jesus Tanner MD [address] [place] [address] 02/07/2025 10:20 AM EST Office Visit [facility] [address], [address]nd [place] [address] Melyssa Encinas PA [address] [place] [address] 02/24/2025 3:00 PM EST Office Visit [facility] [address], [address]nd [place] [address] Rebekah Aragon PA [address] [place] [address] 07/12/2025 11:00 AM EDT Ovarian Cancer Screening [facility] [address] [facility], 3rd [place] [address] documented as of this encounter Goals Goal [...] documented as of this encounter Care Teams Thread Twister Relationship Specialty Start Date End Date Dru Giles MD PCP - General 11/21/21 documented as of this encounter
--- OUTSIDE RECORDS SUMMARY | 2024-11-15 21:14 | XMS_ITS | Encounter Summary ---
Author Organization [facility] Address [address] [place] [address] Care Team Providers Care Lacquer Sprayer Name Role Phone Dru Giles MD Primary Care Provider [phone] Encounter Details Date Type Department Care Team (Late st Contact Info) Description 11/01/2024 Telephone [place] [facility] Medicine Specialties [address], [address] [place] [address] [place] [address] Social History Tobacco Use Types Packs/Day Years [...] , but that I would confirm CB: [phone] documented in this encounter Plan of Treatment Upcoming Encounters Date Type Department Care Team ([facility] st Contact Info) Description 12/29/2024 1:30 PM EDT Office Visit [facility] Medicine Specialties [address], [address] [place] [address] Jesus Tanner MD [address] [place] [address] 02/07/2025 10:20 AM EST Office Visit [facility] Medicine Specialties [address], [address]nd [place] [address] Melyssa Encinas PA [address] [place] [address] 02/24/2025 3:00 PM EST Office Visit [facility] Medicine [facility] [address], [address]nd [place] [address] Rebekah Aragon PA [address] [place] [address] 07/12/2025 11:00 AM EDT Ovarian Cancer Screening [facility] [address] [facility], 3rd [place] [address] documented as of this encounter Goals Goal [...] documented as of this encounter Care Teams Lacquer Sprayer Relationship Specialty Start Date End Date Dru Giles MD PCP - General 11/21/21 documented as of this encounter
--- OUTSIDE RECORDS SUMMARY | 2024-11-15 21:14 | XMS_ITS | Encounter Summary ---
Author Organization Healthcare Address [address] [place] [address] Care Team Providers Care Centrifugal Operator Name Role Phone Dru Giles MD Primary Care Provider [phone] Encounter Details Date Type Department Care Team (Late st Contact Info) Description 08/20/2024 Telephone [place] [facility] Medicine Specialties [address], [address] [place] [address] Jesus Tanner MD [address] [place] [address] Social History Tobacco Use Types [...] to speak with you Best contact number: [phone] (home) Optimal time of day to reach caller: ANYTIME Additional comments/information from caller: None Note: Please do not reply to this message. Follow-up communication and further actions as a result of this message need to be communicated with the patient directly, if the patient is not active onMyChart. If the patient is active on MyChart, they will receive notification of the communication/outcome via AdRockett. documented in this encounter Plan of Treatment Upcoming Encounters Date Type Department Care Team (Late st Contact Info) Description 12/29/2024 1:30 PM EDT Office Visit [facility] Medicine Specialties [address], [address]nd [place] [address] Jesus Tanner MD [address] [place] [address] 02/07/2025 10:20 AM EST Office Visit [facility] Specialties [address], [address] [place] [address] Melyssa Encinas PA [address] [place] [address] 02/24/2025 3:00 PM EST Office Visit [facility] Specialties [address], [address]nd [place] [address] Rebekah Aragon PA [address] [facility] [address] [place] [address] 07/12/2025 11:00 AM EDT Ovarian Cancer Screening [facility] [address] [facility], 3rd [place] [address] documented as of this encounter Visit Diagnoses [...] documented as of this encounter Care Teams Centrifugal Operator Relationship Specialty Start Date End Date Dru Giles MD PCP - General 11/21/21 documented as of this encounter
--- OUTSIDE RECORDS SUMMARY | 2024-11-15 21:14 | XMS_ITS | Encounter Summary ---
Author Organization Healthcare Address [address] [place] [address] Care Team Providers Care Pulverizer Operator Name Role Phone Dru Giles MD [...] Description 12/29/2024 1:30 PM EDT Office Visit [facility] Medicine Specialties [address], [address] [place] [address] Jesus Tanner MD [address] [place] [address] 02/07/2025 10:20 AM EST Office Visit [facility] Medicine Specialties [address], [address]nd [place] [address] Melyssa Encinas PA [address] [place] [address] 02/24/2025 3:00 PM EST Office Visit [facility] Medicine Specialties [address], [address]nd [place] [address] Rebekah Aragon PA [address] [facility] [address] [place] [address] 07/12/2025 11:00 AM EDT Ovarian Cancer Screening [facility] [address] [place] [address] documented as of this encounter Goals Goal [...] documented as of this encounter Care Teams Pulverizer Operator Relationship Specialty Start Date End Date Dru Giles MD PCP - General 11/21/21 documented as of this encounter
--- OUTSIDE RECORDS SUMMARY | 2024-11-15 21:15 | XMS_ITS | Encounter Summary ---
Author Organization Healthcare Address [address] [place] [address] Care Team Providers Care Vessel Traffic Officer Name Role Phone Dru Giles MD Primary Care Provider [phone] Encounter Details Date Type Department Care Team (Late st Contact Info) Description 09/21/2024 Telephone [place] [facility] Medicine Specialties [address], [address] [place] [address] Jesus Tanner MD [address] [place] [address] Social History Tobacco Use Types [...] of the initial request. Best contact number: [phone] (home) Optimal time of day to reach [...] returning call. Please call. Best contact number: [phone] (home) Optimal time of day to reach [...] Description 12/29/2024 1:30 PM EDT Office Visit [facility] Specialties [address], [address] [place] [address] Jesus Tanner MD [address] [place] [address] 02/07/2025 10:20 AM EST Office Visit [facility] [address], [address]nd [place] [address] Melyssa Encinas PA [address] [place] [address] 02/24/2025 3:00 PM EST Office Visit [facility] [address], [address]nd [place] [address] Rebekah Aragon PA [address] [place] [address] 07/12/2025 11:00 AM EDT Ovarian Cancer Screening [facility] [address] [facility], 3rd [place] [address] documented as of this encounter Goals Goal [...] documented as of this encounter Care Teams Vessel Traffic Officer Relationship Specialty Start Date End Date Dru Giles MD PCP - General 11/21/21 documented as of this encounter
--- OUTSIDE RECORDS SUMMARY | 2024-11-15 21:15 | XMS_ITS | Encounter Summary ---
Author Organization Healthcare Address [address] [place] [address] Care Team Providers Care Enterprise Data Architect Name Role Phone Dru Giles MD Primary Care Provider [phone] Encounter Details Date Type Department Care Team (Late st Contact Info) Description 08/23/2024 Results Follow-Up [facility] Medicine Specialties [address], [address] [place] [address] Melyssa Encinas PA [address] [place] [address] Social History Tobacco Use Types [...] 12/29/2024 1:30 PM EDT Office Visit [facility] Medicine Specialties [address], [address]nd [place] [address] Jesus Tanner MD [address] [place] [address] 02/07/2025 10:20 AM EST Office Visit [facility] Medicine Specialties [address], [address] [place] [address] Melyssa Encinas PA [address] [place] [address] 02/24/2025 3:00 PM EST Office Visit [facility] Medicine Specialties [address], [address]nd [place] [address] Rebekah Aragon PA [address] [place] [address] 07/12/2025 11:00 AM EDT Ovarian Cancer Screening [facility] [address] [facility], 3rd [place] [address] documented as of this encounter Visit Diagnoses [...] documented as of this encounter Care Teams Enterprise Data Architect Relationship Specialty Start Date End Date Dru Giles MD PCP - General 11/21/21 documented as of this encounter
--- OUTSIDE RECORDS SUMMARY | 2024-11-15 21:15 | XMS_ITS | Encounter Summary ---
Author Organization Healthcare Address [address] [place] [address] Care Team Providers Care Program Clinician Name Role Phone Dru Giles MD Primary Care Provider [phone] Encounter Details Date Type Department Care Team [...] Description 12/29/2024 1:30 PM EDT Office Visit [facility] Medicine Specialties [address], [address]nd [place] [address] Jesus Tanner MD [address] [place] [address] 02/07/2025 10:20 AM EST Office Visit [facility] Medicine Specialties [address], [address]nd [place] [address] Melyssa Encinas PA [address] [place] [address] 02/24/2025 3:00 PM EST Office Visit [facility] Medicine Specialties [address], [address]nd [place] [address] Rebekah Aragon PA [address] [place] [address] 07/12/2025 11:00 AM EDT Ovarian Cancer Screening [facility] [address], [address]rd [place] [address] documented as of this encounter Goals Goal [...] as of this encounter Care Teams Program Clinician Relationship Specialty Start Date End Date Dru Giles MD PCP - General 11/21/21 documented as of this encounter
--- OUTSIDE RECORDS SUMMARY | 2024-11-15 21:15 | XMS_ITS | Encounter Summary ---
Author Organization Healthcare Address [address] [place] [address] Care Team Providers Care Guard Lieutenant Name Role Phone Dru Giles MD Primary Care Provider Reason for Visit * Reason Onset Date Comments Odilia new start 09/20/2024 Encounter Details Date Type Department Care Team (Late st Contact Info) Description 09/20/2024 Telephone [place] [facility] Medicine Specialties [address], [address] [place] [address] Guille Escobar new start Social History Tobacco [...] Notes * Telephone Encounter - Shawna Jackson [facility] - 09/21/2024 2:59 PM EDT [facility] Specialty Medication Initial Care Plan [...] allergy, Trimethoprim, Diphth-acell pertussis-tetanus, Dtap-hepatitis b recomb-ipv, Zeaj-yhj-rss-hepatitis b recmb, Penicillin v potassium, Penicillins, Sulfa [...] mg, Nightly Multiple Vitamins-Minerals (EQ One Daily reportbrain) tablet 1 tablet, Daily ondansetron (ZOFRAN) 4 [...] injectable, preservative free 12/18/2023 Moderna COVID-19 Vaccine (Shared Services And Outsourcing Manager) 12+ years 05/10/2020, 06/07/2020, 01/03/2021 Moderna COVID-19 [...] Tried and failed: methotrexate. Rx sent to [facility]. Hydroxychloroquine contraindicated due to macular [...] and how to avoid DDIs by calling [facility] before addin g/changing any medications. [...] with labs ordered by provider. Pt willcontact [facility] if they have any other [...] 2:57 PM EDT I attest to the clinical pharmacy manager's recommendations. Thanks! Angelo Banks documented in this encounter Plan of Treatment Upcoming Encounters Date Type Department Care Team (Late st Contact Info) Description 12/29/2024 1:30 PM EDT Office Visit [facility] Specialties [address], [address] [place] [address] Jesus Tanner MD [address] [place] [address] 02/07/2025 10:20 AM EST Office Visit [place] [facility] Medicine Specialties [address], [address]nd [place] [address] Melyssa Encinas PA [address] [place] [address] 02/24/2025 3:00 PM EST Office Visit [facility] Specialties [address], [address] [place] [address] Rebekah Aragon PA [address] [place] [address] 07/12/2025 11:00 AM EDT Ovarian Cancer Screening [facility] [address] [facility], 3rd [place] [address] documented as of this encounter Goals Goal Patient Goal Type Associated Problems Recent Progress Patient-Stated? Author Autogenerat ed Goal Care Plan Autogenerated Problem No Dana Leiva documented as of this encounter Visit Diagnoses Diagnosis Seronegative rheumatoid arthritis of multiple sites (CMS/[facility])- Primary documented in this encounter Additional Health [...] documented as of this encounter Care Teams Guard Lieutenant Relationship Specialty Start Date End Date Dru Giles MD PCP - General 11/21/21 documented as of this encounter
--- OUTSIDE RECORDS SUMMARY | 2024-11-15 21:15 | XMS_ITS | Encounter Summary ---
Author Organization Healthcare Address [address] [place] [address] Care Team Providers Care Horizontal Boring Mill Operator Name Role Phone Dru Giles MD [...] Description 12/29/2024 1:30 PM EDT Office Visit [facility] Specialties [address], [address] [place] [address] Jesus Tanner MD [address] [place] [address] 02/07/2025 10:20 AM EST Office Visit [facility] [address], [address]nd [place] [address] Melyssa Encinas PA [address] [place] [address] 02/24/2025 3:00 PM EST Office Visit [facility] [address], [address] [place] [address] Rebekah Aragon PA [address] [place] [address] 07/12/2025 11:00 AM EDT Ovarian Cancer Screening [facility] Gynecology [address] [facility], 3rd [place] [address] documented as of this encounter Goals Goal [...] documented as of this encounter Care Teams Horizontal Boring Mill Operator Relationship Specialty Start Date End Date Neus, Dru E, MD PCP - General 11/21/21 documented as of this encounter
--- OUTSIDE RECORDS SUMMARY | 2024-11-15 21:15 | XMS_ITS | Encounter Summary ---
Author Organization Healthcare Address [address] [place] [address] Care Team Providers Care Shampoo Assistant Name Role Phone Dur Giles MD Primary Care Provider Encounter Details Date Type Department Care Team (Late st Contact Info) Description 08/27/2024 Telephone [facility] [address], [address] [place] [address] Jesus Tanner MD [address] [place] [address] Social History Tobacco Use Types [...] was normal. Please call. Best contact number: [phone] (home) Optimal time of day to reach [...] will receive notification of the communication/outcome via [employer]arity[employer]. documented in this encounter Plan of Treatment Upcoming Encounters Date Type Department Care Team (Late st Contact Info) Description 12/29/2024 1:30 PM EDT Office Visit [facility] Medicine Specialties [address] [place] [id number] Jesus Tanner MD [address] [place] [address] 02/07/2025 10:20 AM EST Office Visit [facility] [address], [address] [place] [address] Melyssa Encinas PA [address] [place] [address] 02/24/2025 3:00 PM EST Office Visit [facility] [address], [address] [place] [address] Rebekah Aragon PA [address] [place] [address] 07/12/2025 11:00 AM EDT Ovarian Cancer Screening [facility] [address] [facility] [place] [phone] documented as of this encounter Goals Goal [...] documented as of this encounter Care Teams Shampoo Assistant Relationship Specialty Start Date End Date Dru Giles MD PCP - General 11/21/21 documented as of this encounter
--- OUTSIDE RECORDS SUMMARY | 2024-11-15 21:15 | XMS_ITS | Encounter Summary ---
Author Organization Healthcare Address [address] [place] [address] Care Team Providers Care Spray Applicator Name Role Phone Dru Giles MD Primary Care Provider [phone] Encounter Details Date Type Department Care Team [...] containing alcohol? Never 09/20/2024 1:07 PM Rachel cMintosh Q2: How many drinks containing alcohol do [...] Description 12/29/2024 1:30 PM EDT Office Visit [facility] [address] [place] [address] Jesus Tanner MD [address] [place] [address] 02/07/2025 10:20 AM EST Office Visit [facility] [address], [address] [place] [address] Melyssa Encinas PA [address] [place] [address] 02/24/2025 3:00 PM EST Office Visit [facility] [address] [place] [address] Rebekah Aragon PA [address] [place] [address] 07/12/2025 11:00 AM EDT Ovarian Cancer Screening [facility] [address] [facility], [address] [place] [address] documented as of this encounter Goals Goal [...] documented as of this encounter Care Teams Spray Applicator Relationship Specialty Start Date End Date Dru Giles MD PCP - General 11/21/21 documented as of this encounter
[2024-11-15 21:19] VITALS: BP 187/80; PULSE 97; RESP 16; TEMP 36.9; O2SAT 95; BMI 45.6
[2024-11-15 21:29] VITALS: BP 158/78; PULSE 89; RESP 18; O2SAT 95
--- NOTE | 2024-11-15 21:34 | XR_ITS ---
PROCEDURE INFORMATION: Exam: XR Pelvis Exam date and time: 11/15/2024 9:34 PM Age: 59 years old Clinical indication: Other: Tenderness in lower back; Additional info: Tenderness R si joint TECHNIQUE: Imaging protocol: Radiologic exam of the pelvis. Views: 1 or 2 view. COMPARISON: CR XR PELVIS 1-2V 09/24/2024 2:36 PM FINDINGS: Bones/joints: Unremarkable. No acute fracture. Soft tissues: Unremarkable. IMPRESSION: No acute findings.
[2024-11-15] MEDS: LIDOCAINE 5% TRANSDERMAL PATCH 1 EACH TD (21:42)
[2024-11-15] MEDS: METHOCARBAMOL 500MG TABLET 500 MG PO (21:42)
[2024-11-15 21:47] LABS: Microscopic, Urine URINE MICROSCOPIC (MICROSCOPIC)
[2024-11-15 21:49] LABS: Bilirubin,Urine Negative (Negative); Color,Urine YELLOW (Yellow); Glucose,Urine (UA) Negative (Negative); Ketones,Urine Negative (Negative); Leukocyte Esterase,Urine Negative (Negative); PH,Urine 7.0 (5.0-8.5); Protein,Urine Negative (Negative); Specific Gravity, Urine 1.020 (1.005-1.030); Urobilinogen,Urine 0.2 EU/dl (0.2)
[2024-11-15 22:25] LABS: Bacteria,Urine Trace /lpf; WBC,Urine Occasional #/hpf (0-3)
[2024-11-15 23:27] VITALS: BP 167/68; PULSE 92; RESP 16; TEMP 36.9; O2SAT 97
--- OUTSIDE RECORDS SUMMARY | 2024-11-27 20:00 | XMS_ITS | Clinical Summary ---
Author Organization Unknown Care Team Providers Care Pool Installer Name Role Phone ANALISA RILEY, SOM Unavailable Unavailable GATITO RN, ANKITA Unavailable Unavailable JEMMA PT, ANA Unavailable Unavailable RIGO TURBO GENERATOR OILER, CORNELIUS Unavailable Unavailable CHERRI OT, XAIV Unavailable Unavailable CORRIE BAUGH, MILTON Unavailable Unavailable Payers Payer Name Policy Type Policy Number Effective Date Expira tion Date SHARI.PPO.C.AUTH [id number] [facility] [id number] Problems Condition Name Condition Details Condition Category [...] 09-25 00:00: 00 09-30 00:00 :00 No [id number] Per instruc tions Per instructio ns (route: oral) Med Classific ation: Anti-Infe ctive Agents metronidazo le 500 mg tablet 09-25 00:00: 00 09-30 00:00 :00 No [id number] Per instruc tions Per instructio ns (route: oral) Med Classific ation: Anti-Infe ctive Agents Humira(CF) Pen 40 mg/0.4 mL subcutaneou s kit 09-21 00:00: 00 09-30 00:00 :00 No [id number] Per instruc tions Per instructio ns (route: subcutaneo us) Med Classific ation: Analgesic , Anti-infl ammatory or Antipyret ic levocetiriz ine 5 mg tablet 09-21 00:00: 00 09-30 00:00 :00 No [id number] Per instruc tions EVERY DAY Per instructio ns EVERY DAY (route: oral) Med Classific ation: Respirato ry Therapy Agents tramadol 50 mg tablet 09-08 00:00: 00 09-30 00:00 :00 No [id number] Per instruc tions EVERY 8 HOURS NEEDED Per instructio ns EVERY 8 HOURS NEEDED (route: oral) Med Classific ation: Analgesic , Anti-infl ammatory or Antipyret ic albuterol sulfate HFA 90 mcg/actuati on aerosol inhaler 09-07 00:00: 00 09-30 00:00 :00 No [id number] Per instruc tions EVERY 4 TO 6 HOURS NEEDED Per instructio ns EVERY 4 TO 6 HOURS NEEDED (route: inhalation ) Med Classific ation: Respirato ry Therapy Agents simvastatin 20 mg tablet 09-07 00:00: 00 09-30 00:00 :00 No [id number] Per instruc tions EVERY Per instructio ns EVERY (route: oral) Med Classific ation: Cardiovas cular Therapy Agents methotrexat e sodium 2.5 mg tablet 09-03 00:00: 00 09-30 00:00 :00 No [id number] Unavailable Per instruc tions ONCE exactly DIRECTED Per instructio ns ONCE exactly DIRECTED (route: oral) Med Classific ation: Antineopl astics azelastine 137 mcg (0.1 %) nasal spray 09-01 00:00: 00 09-30 00:00 :00 No [id number] Per instruc tions TWICE DAILY NEEDED DIRECTED Per instructio ns TWICE DAILY NEEDED DIRECTED (route: nasal) Med Classific ation: Respirato ry Therapy Agents Horizant ER 600 mg tablet,exte nded release 08-31 00:00: 00 09-30 00:00 :00 No [id number] Unavailable Per instruc tions EVERY DAY AT 5 EVENING Per instructio ns EVERY DAY AT 5 EVENING (route: oral) Med Classific ation: Central Nervous System Agents valsartan 160 mg tablet 09-30 00:00: 00 Yes [id number] BLADDER 160 mg DAILY 160 mg DAILY (route: oral) Med Classific ation: Cardiovas cular Therapy Agents mirtazapine 15 mg disintegrat ing tablet 09-30 00:00: 00 10-12 23:59 :00 No [id number] SLEEP 15 mg BEDTIME 15 mg BEDTIME (route: oral) Med Classific ation: Central Nervous System Agents folic acid 1 mg tablet 10-06 00:00: 00 Yes [id number] SUPPLEMENT 1 mg DAILY 1 mg TEE LY (route: oral) Med Classific ation: Electroly te Balance-N utritiona l Products Horizant ER 600 mg tablet,exte nded release 10-07 00:00: 00 Yes [id number] NA 600 mg DAILY 600 mg DAILY (route: oral) Med Classific ation: Central Nervous System Agents montelukast 10 mg tablet 10-06 00:00: 00 Yes [id number] A.LERGIES 10 mg BEDTIME 10 mg BEDTIME (route: oral) Med Classific ation: Respirato ry Therapy Agents pantoprazol e 40 mg tablet,adam yed release 10-07 00:00: 00 Yes [id number] GERD 40 mg DAILY 40 mg DAILY (route: oral) Med Classific ation: Gastroint estinal Therapy Agents tramadol 50 mg tablet 10-07 00:00: 00 Yes [id number] PAIN 50 mg EVERY 6 HOURS 50 mg EVERY 6 HOURS (route: oral) Med Classific ation: Analgesic , Anti-infl ammatory or Antipyret ic lactulose 10 gram/15 mL (15 mL) oral solution 10-11 00:00: 00 Yes [id number] LIVER Per instruc tions DAILY Per instructio ns DAILY (route: oral) Med Classific ation: Gastroint estinal Therapy Agents Humira Pen 40 mg/0.8 mL subcutaneou s kit 10-08 00:00: 00 Yes [id number] FOR RA 40 mg EVERY OTHER WEEK 40 mg EVERY OTHER WEEK (route: subcutaneo us) Med Classific ation: Analgesic , Anti-infl ammatory or Antipyret ic methotrexat e sodium 2.5 mg tablet 10-15 00:00: 00 Yes [id number] RA 2.5 mg EVERY OTHER WEEK 2.5 mg EVERY OTHER WEEK (route: oral) Med Classific ation: Antineopl astics Xifaxan 550 mg tablet 10-11 00:00: 00 Yes [id number] LIVER 550 mg 2 TIMES DAILY 550 mg 2 TIMES DAILY (route: oral) Med Classific ation: Anti-Infe ctive Agents Vital Signs Vital Name Observation Time Observation Value Commen ts Temperature 2024-11-10 14:56:00.000 98.2 [degF] Temperature 2024-11-01 [...] kg/m2 Height 2024-09-30 12:19:58.000 67 [in_us] Pulse 2024-11-10 14:56:00.000 75 /min Pulse 2024-11-04 [...] 2024-09-30 12:45:00.000 86 /min O2 Saturation (%) 2024-11-10 14:59:00.000 98 % [...] Saturation (%) 2024-10-05 10:53:00.000 96 % Respirations 2024-11-10 14:56:00.000 18 /min Respirations 2024-11-04 [...] 2024-09-30 12:20:03.000 296 [lb_av] Systolic Blood Pressure 2024-11-10 14:56:00.000 143 mm [...] 12:45:00.000 138 mm [Hg] Diastolic Blood Pressure 2024-11-10 14:56:00.000 [...] CONSULTING PHYSICIANS RN TO OBSERVE AND ASSESS, ROOF FOREMAN/WAISTLINE JOINER TO OBSERVE FOR RISK FOR FALLS AND INSTRUCT IN FALL PREVENTION, HOME SAFETY, MEDICATION MANAGEMENT, INFECTION PREVENTION, AND NUTRITION MANAGEMENT. RN/ROOF FOREMAN/WAISTLINE JOINER NURSE MAY PERFORM O2 SATURATION LEVEL ON ADMISSION AND PRN FOR RN TO ASSESS/ROOF FOREMAN TO OBSERVE PATIENT, WITH NOTIFICATION TO THE PHYSICIAN IF SATURATION IS 90% IN THE ABSENCE OF MORE SPECIFIC PARAMETERS FROM THE PHYSICIAN. AGENCY MAY PERFORM A RESUMPTION OF CARE VISIT FOLLOWING ANY HOSPITAL ADMISSION. RN/ROOF FOREMAN/WAISTLINE JOINER TO MONITOR CO-MORBID CONDITIONS LISTED ON THE PLAN OF CARE AND ANY NEW CONDITIONS THAT PRESENT THEMSELVES DURING THIS EPISODE TO IDENTIFY CHANGES AND INTERVENE TO MINIMIZE COMPLICATIONS. [code = RN TO OBSERVE, ASSESS, EVALUATE, AND DEVELOP AN INDIVIDUALIZED PLAN OF CARE. AGENCY MAY ACCEPT ORDERS FROM CONSULTING PHYSICIANS RN TO OBSERVE AND ASSESS, ROOF FOREMAN/WAISTLINE JOINER TO OBSERVE FOR RISK FOR FALLS AND INSTRUCT IN FALL PREVENTION, HOME SAFETY, MEDICATION MANAGEMENT, INFECTION PREVENTION, AND NUTRITION MANAGEMENT. RN/ROOF FOREMAN/WAISTLINE JOINER NURSE MAY PERFORM O2 SATURATION LEVEL ON ADMISSION AND PRN FOR RN TO ASSESS/ROOF FOREMAN TO OBSERVE PATIENT, WITH NOTIFICATION TO THE PHYSICIAN IF SATURATION IS 90% IN THE ABSENCE OF MORE SPECIFIC PARAMETERS FROM THE PHYSICIAN. AGENCY MAY PERFORM A RESUMPTION OF CARE VISIT FOLLOWING ANY HOSPITAL ADMISSION. RN/ROOF FOREMAN/WAISTLINE JOINER TO MONITOR CO-MORBID CONDITIONS LISTED ON THE PLAN OF CARE AND ANY NEW CONDITIONS THAT PRESENT THEMSELVES DURING THIS EPISODE TO IDENTIFY CHANGES AND INTERVENE TO MINIMIZE COMPLICATIONS.] Future Scheduled Test RISK FOR H OSPITALIZATION; RN TO ASSESS/TEACH, WAISTLINE JOINER/ROOF FOREMAN TO OBSERVE/TEACH PATIENT/CAREGIVER ON RISK FOR HOSPITALIZATION/EMERGENCY ROOM VISITS, TEACH SIGNS AND SYMPTOMS THAT PUT PATIENT AT RISK, WHEN TO NOTIFY NURSE/PHYSICIAN OF COMPLICATIONS/DECLINE, AND WHEN TO CALL 911. [code = RISK FOR HOSPITALIZATION; RN TO ASSESS/TEACH, WAISTLINE JOINER/ROOF FOREMAN TO OBSERVE/TEACH PATIENT/CAREGIVER ON RISK FOR HOSPITALIZATION/EMERGENCY ROOM VISITS, TEACH SIGNS AND SYMPTOMS THAT PUT PATIENT AT RISK, WHEN TO NOTIFY NURSE/PHYSICIAN OF COMPLICATIONS/DECLINE, AND WHEN TO CALL 911.] Future Scheduled Test NEUROLOGIC AL SYSTEM MANAGEMENT; RN TO ASSESS AND TEACH, WAISTLINE JOINER/ROOF FOREMAN TO OBSERVE AND TEACH RELATED TO ALTERED NEUROLOGICAL STATUS TO MINIMIZE COMPLICATIONS AND REDUCE HOSPITALIZATION. [code = NEUROLOGICAL SYSTEM MANAGEMENT; RN TO ASSESS AND TEACH, WAISTLINE JOINER/ROOF FOREMAN TO OBSERVE AND TEACH RELATED TO ALTERED NEUROLOGICAL STATUS TO MINIMIZE COMPLICATIONS AND REDUCE HOSPITALIZATION.] Future Scheduled Test GENITOURIN ANTONINA MANAGEMENT; RN TO ASSESS AND TEACH, ROOF FOREMAN/WAISTLINE JOINER TO OBSERVE AND TEACH RELATED TO ALTERED GENITOURINARY STATUS TO MINIMIZE COMPLICATIONS AND REDUCE HOSPITALIZATION. [code = GENITOURINARY MANAGEMENT; RN TO ASSESS AND TEACH, ROOF FOREMAN/WAISTLINE JOINER TO OBSERVE AND TEACH RELATED TO ALTERED GENITOURINARY STATUS TO MINIMIZE COMPLICATIONS AND REDUCE HOSPITALIZATION.] Future Scheduled Test URINARY TR ACT INFECTION MANAGEMENT; RN/WAISTLINE JOINER/ROOF FOREMAN TO PROVIDE SKILLED TEACHING AND SELF- CARE MANAGEMENT RELATED TO UTI TO MINIMIZE COMPLICATIONS AND REDUCE THE RISK OF HOSPITALIZATION. [code = URINARY TRACT INFECTION MANAGEMENT; RN/WAISTLINE JOINER/ROOF FOREMAN TO PROVIDE SKILLED TEACHING AND SELF- CARE MANAGEMENT RELATED TO UTI TO MINIMIZE COMPLICATIONS AND REDUCE THE RISK OF HOSPITALIZATION.] Future Scheduled Test FALL REDUC TION MANAGEMENT; RN TO ASSESS AND OBSERVE, ROOF FOREMAN/WAISTLINE JOINER TO OBSERVE FALL RISK FACTORS AND EDUCATE PATIENT/CAREGIVER ON STRATEGIES TO MINIMIZE THE RISK OF FALLING. [code = FALL REDUCTION MANAGEMENT; RN TO ASSESS AND OBSERVE, ROOF FOREMAN/WAISTLINE JOINER TO OBSERVE FALL RISK FACTORS AND EDUCATE [...] AND ADJUSTMENT TO CARE. [code = MEDICAL MODELING INSTRUCTOR FOR EVALUATION TO ASSESS SOCIAL AND EMOTIONAL FACTORS RELATED TO THE PATIENT'S ILLNESS, NEED FOR CARE, RESPONSE TO TREATMENT AND ADJUSTMENT TO CARE.] Future Scheduled Test AGENCY MAY PERFORM A RESUMPTION OF CARE VISIT FOLLOWING ANY HOSPITAL ADMISSION. OT TO EVALUATE, OBSERVE / ASSESS, AND MONITOR, GAME DESIGN INSTRUCTOR TO OBSERVE AND MONITOR, PROVIDE SKILLED THERAPEUTIC INTERVENTION, ACTIVITY, EDUCATION, AND TRAINING TO ADDRESS; IMPROVEMENT OF STRENGTH, ACTIVITY TOLERANCE, BALANCE AND SAFE SELF-CARE PERFORMANCE BATHING/SHOWERING (OT/GAME DESIGN INSTRUCTOR) DRESSING (OT/GAME DESIGN INSTRUCTOR) ACTIVITIES OF DAILY LIVING (OT/ETHEL) TOILET TRANSFER (OT/GAME DESIGN INSTRUCTOR) BATH/SHOWER TRANSFER (OT/GAME DESIGN INSTRUCTOR) ITEM RETRIEVAL AND TRANSPORTATION (OT/ETHEL) ENERGY CONSERVATION/ACTIVITY DEMAND (OT/ETHEL) OT/GAME DESIGN INSTRUCTOR TO MONITOR PATIENT WITH STABLE DEPRESSION ON SIGNS AND SYMPTOMS OF WORSENING DEPRESSION AND AVAILABLE RESOURCES INCLUDING formerly [facility] SUICIDE CRISIS [facility]. OT/ETHEL MAY EDUCATE ON PAIN MANAGEMENT [...] AND SAFE SELF-CARE PERFORMANCE BATHING/SHOWERING (OT/ETHEL) DRESSING (OT/GAME DESIGN INSTRUCTOR) ACTIVITIES OF DAILY LIVING (OT/GAME DESIGN INSTRUCTOR) TOILET TRANSFER (OT/ETHEL) BATH/SHOWER TRANSFER (OT/GAME DESIGN INSTRUCTOR) ITEM RETRIEVAL AND TRANSPORTATION (OT/GAME DESIGN INSTRUCTOR) ENERGY CONSERVATION/ACTIVITY DEMAND (OT/ETHEL) OT/GAME DESIGN INSTRUCTOR TO MONITOR PATIENT WITH STABLE DEPRESSION ON SIGNS AND SYMPTOMS OF WORSENING DEPRESSION AND AVAILABLE RESOURCES INCLUDING formerly [facility] SUICIDE CRISIS [facility]. OT/GAME DESIGN INSTRUCTOR MAY EDUCATE ON PAIN MANAGEMENT CLINICALLY INDICATED, [...] TO EVALUATE, OBSERVE / ASSESS, AND MONITOR, TURBO GENERATOR OILER TO OBSERVE AND MONITOR, PROVIDE SKILLED THERAPEUTIC INTERVENTION, ACTIVITY, EDUCATION, AND TRAINING TO ADDRESS; PT/TURBO GENERATOR OILER TO PROVIDE GAIT TRAINING FOR IMPROVED MOBILITY AND /OR TO NORMALIZE GAIT PATTERN NEUROMUSCULAR RE-EDUCATION / BALANCE / POSTURAL CONTROL (PT) THERAPEUTIC EXERCISES AND ESTABLISHING A HOME EXERCISE PROGRAM (PT/TURBO GENERATOR OILER) SIT TO/FROM STAND TRANSFERS (PT/TURBO GENERATOR OILER) PT / TURBO GENERATOR OILER TO MONITOR AND EDUCATE ON OXYGEN SATURATION DURING ADLS/IADLS, NOTIFY PHYSICIAN AND/OR THE RN CLINICAL CABINET WORKER FOR PHYSICIAN NOTIFICATION AND IF O2 SATS BELOW PHYSICIAN ORDERED PARAMETERS AFTER 10 MIN OF REST PT / TURBO GENERATOR OILER TO INSTRUCT PATIENT/CAREGIVER ON RISK FOR HOSPITALIZATION/EMERGENCY ROOM VISITS, TEACH SIGNS AND SYMPTOMS THAT PUT PATIENT AT RISK, WHEN TO NOTIFY NURSE/PHYSICIAN OF COMPLICATIONS/DECLINE, AND WHEN TO CALL 911. PT/TURBO GENERATOR OILER TO IDENTIFY FALL RISK FACTORS; EDUCATE THE PATIENT/CAREGIVER ON WAYS TO REDUCE FALL RISK FACTORS AND ESTABLISH HOME EXERCISE PROGRAM TO MINIMIZE FALL RISK. MAY TEACH THE PATIENT FLOOR RECOVERY WHEN CLINICALLY APPROPRIATE [code = AGENCY MAY PERFORM A RESUMPTION OF CARE VISIT FOLLOWING ANY HOSPITAL ADMISSION. PT TO EVALUATE, OBSERVE / ASSESS, AND MONITOR, TURBO GENERATOR OILER TO OBSERVE AND MONITOR, PROVIDE SKILLED THERAPEUTIC INTERVENTION, ACTIVITY, EDUCATION, AND TRAINING TO ADDRESS; PT/TURBO GENERATOR OILER TO PROVIDE GAIT TRAINING FOR IMPROVED MOBILITY AND /OR TO NORMALIZE GAIT PATTERN NEUROMUSCULAR RE-EDUCATION / BALANCE / POSTURAL CONTROL (PT) THERAPEUTIC EXERCISES AND ESTABLISHING A HOME EXERCISE PROGRAM (PT/TURBO GENERATOR OILER) SIT TO/FROM STAND TRANSFERS (PT/TURBO GENERATOR OILER) PT / TURBO GENERATOR OILER TO MONITOR AND EDUCATE ON OXYGEN SATURATION DURING ADLS/IADLS, NOTIFY PHYSICIAN AND/OR THE RN CLINICAL CABINET WORKER FOR PHYSICIAN NOTIFICATION AND IF O2 SATS BELOW PHYSICIAN ORDERED PARAMETERS AFTER 10 MIN OF REST PT / TURBO GENERATOR OILER TO INSTRUCT PATIENT/CAREGIVER ON RISK FOR HOSPITALIZATION/EMERGENCY ROOM VISITS, TEACH SIGNS AND SYMPTOMS THAT PUT PATIENT AT RISK, WHEN TO NOTIFY NURSE/PHYSICIAN OF COMPLICATIONS/DECLINE, AND WHEN TO CALL 911. PT/TURBO GENERATOR OILER TO IDENTIFY FALL RISK FACTORS; EDUCATE THE PATIENT/CAREGIVER ON WAYS TO REDUCE FALL RISK FACTORS AND ESTABLISH HOME EXERCISE PROGRAM TO MINIMIZE FALL RISK. MAY TEACH THE PATIENT FLOOR RECOVERY WHEN CLINICALLY APPROPRIATE] Future Scheduled Test PRESSER ALL AROUND EVALUA TION PERFORMED. NO ADDITIONAL VISITS REQUIRED. [code = PRESSER ALL AROUND EVALUATION PERFORMED. NO ADDITIONAL VISITS REQUIRED.] Goal [...] End Date/Time Encounter Type Admission Type Attending [facility] Care Department Encounter ID Discharge Date Discharge Status Discharge Condition Discharge Reason Percent Goals Met 2024-09-30 00:00:00 2024-11-28 00:00:00 Outpatient NEW ADMISSION ANKITA MEDEROS [facility] [id number] 35.14
== END 2024-11-15 23:28 | disposition home or self-care (01) ==
PROVIDERS: Emergency Provider Student in an Organized Health Care Education/Training Program; PCP Family Medicine
DX: M54.50 Low back pain, unspecified (principal); M06.9 Rheumatoid arthritis, unspecified
CPT/HCPCS: 72170; 81001; 87086; 99284

== ENCOUNTER 2025-01-04 09:55 | Outpatient (CLI) | payer MEDICARE, MEDICAID, SELFPAY ==
--- OUTSIDE RECORDS SUMMARY | 2024-11-15 10:20 | XMS_ITS | Encounter Summary ---
Author Organization [facility] Address [address] [place] [address] Care Team Providers Care Restaurant Hourly Team Member Name Role Phone Dru Giles MD Primary Care Provider [phone] Reason for Referral * Consultation (Routine) - Authorized Specialty Diagnoses / Procedures Referred By Contac t Referred To Contact Diagnoses Gastroesophageal reflux disease, unspecified whether esophagitis present Chronic constipation Melyssa Encinas PA [address] [facility] [address] [place] [address] Phone: tel: fax: Referral ID Status Reason Start Date Expiration Date V isits Requested Visits Authorized [id number] Authorized 11/15/2024 05/17/2026 1 1 Reason for Visit * Reason Comments Gastroesophageal reflux disease, unspeci fied whether esopha Encounter Details Date Type Department Care Team (Late st Contact Info) Description 11/15/2024 10:20 AM EDT Office Visit [facility] [address] [place] [address] Melyssa Encinas PA [address] [facility] [address] [place] [address] Chronic constipation (Primary Dx); Gastroesophageal [...] on file Sexual Orientation Not on file Travel History Travel Start Travel End [place] 12/15/2024 12/17/2024 documented as of this encounter Last Filed [...] all 11/15/2024 10:39 AM EDT Jenn Reinoso Poor appetite or overeating Not at [...] all 11/15/2024 10:39 AM EDT Jenn Reinoso Moving or speaking so slowly that [...] 11/15/2024 10:39 AM EDT Jenn Reinoso * How difficult have these problems made it for you to do your work, take care of things at home, or get along with other people? Answer Date of Assessment Author Not difficult at all 11/15/2024 10:39 AM EDT Shira Gil documented as of this encounter Miscellaneous Notes * Patient Instructions - Melyssa Encinas PA - 11/15/2024 10:20 AM EDT resume 145mcg take 30 minutes before eating breakfast in am Add miralax 1-2 daily if needed for constipation Stay on pantoprazole take 3 minutes before eating breakfast in am * Progress Notes - Melyssa Encinas PA - 11/15/2024 10:20 AM EDT Subjective Patient ID: Marizol Bishop is a 59 y.o. female. Chief Complaint Patient presents with Gastroesophageal reflux disease, unspecified whether esopha HPI The following portions of the chart were reviewed this encounter and updated as appropriate: Tobacco Allergies Meds Problems Med Hx Surg Hx Fam Hx Pt is a pleasant 59 y/o followed by GI hx of PF dysfunction/constipation/diarrhea (previously seen by AMELIE Bee). Follows with Hepatology for [facility] Cirrhosis. Last OV had some NV endoscopy was ordered 10/14/24 EGD The upper third of the esophagus, middle third of the esophagus and lower third of the esophagus appeared normal. Severe mosaic mucosa in the cardia, fundus of the stomach, body of the stomach, greater curve of the stomach and lesser curve of the stomach Moderate erythematous mucosa in the antrum, prepyloric region and pylorus, suggestive of gastritis;performed cold forceps biopsy to rule out H. pylori The 1st part of the duodenum and 2nd part of the duodenum appeared normal. STOMACH, BIOPSY: - REACTIVE GASTROPATHIC CHANGES - NO EVIDENCE OF HELICOBACTER-LIKE ORGANISMS ON ROUTINE STAIN Based on path was rec: Avoid NSAIDS like Ibuprofen or motrin or Aleve or Naprosyn or BC powder PMHx of tophaceous polyarticular gout, inflammatory polyarthritis, [...] gastritis No identified small bowel Crohn's Disease today 11/15 poor historian. Accompanied by mother. Taking ibuprofen prn for pain few times a month (advised to avoid), still on Methotrexate (on folate)and humira, sees rheum next month- hepatology had rec to consider holding Methotrexate. No further vomiting, waldemar has nausea when uses Methotrexate dose, but recent meal of onion rings caused nausea. Takes Pantoprazole 40mg in am then eats (does not wait to eat) Has not seen PFPT. Taking linzess 72mcg, reports very little about every 3 days- hard pellets; some blood on tissue none on stool. Not using prn miralax. Occasional lactulose but does not help. Feels like is evacuating stool better. Takes oral iron so dark, not tarry, prescribed by PCP. No melena or hematochezia Now off reglan after hospital stay for confusion and fall (using rolling walker) + No prior VD, no Hyst. + Bladder leakage with urgency. GI hx: brother has colon polyps, brother also recently dx pancreatic cancer 60y/o. Mom with hx of colon polyps- about 3 on last cscope Review of Systems Gastrointestinal: Positive for constipation. Negative for blood in stool and vomiting. Objective Physical Exam General: appears comfortable, NAD Head: AT, NC Eyes: no scleral icterus Pulmonary: nonlabored respirations, CTAB Cardiovascular: RRR, no M/R/G Abdomen: Soft, obese, NT, ND, Active bowel sounds MSK: (using rolling walker) Skin: no jaundice Neurologic: speech is clear, responds appropriately to commands; memory impairment Psychiatric: Calm, cooperative Visit Vitals BP 138/83 Pulse 78 Temp 36.4 ??C (97.6 ??F) (Oral) Ht 1.702 m (5' 7 ) Wt 133 kg (293 lb 6.9 oz) SpO2 98% BMI 45.96 kg/m?? Assessment/Plan Assessment & Plan Gastroesophageal reflux disease, unspecified whether esophagitis present Orders: pantoprazole (Protonix) 40 MG EC tablet; Take 1 tablet by mouth daily before breakfast. Do not crush, chew, or split. Follow Up GI; Future Chronic constipation Orders: linaCLOtide (Linzess) 145 MCG capsule; Take 1 capsule by mouth daily before breakfast. Follow Up GI; Future Ssx pelvic floor dysfunction Last OV discussed squatty potty Referral to PFPT last OV, doing better, deferred Resume linzess 145mcg 30 ac in am (on 72mcg) having constipation Add miralax 1-2 daily if needed d/w pt and mom. Constipation and diarrhea resolved ( ? Had some element of SIBO, had abx in May) remain in xifaxan Had cscope 05/31/21: adequate prep The terminal ileum appeared normal. Performed random biopsy. The entire colon appeared normal. Performed random biopsy. 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 Rec taking pantoprazole daily given hx of GERD Rec avoid NSAIDs Noted hepatology contacted Rheum and rec dc Methotrexate Follows JANEY Aragon, for MASH related cirrhosis Latest Reference Range & Units 08/23/24 10:38 Ferritin 13 - 150 ng/mL 456 (H) Iron 30 - 160 ug/dL 43 Transferrin 200 - 360 mg/dL 187 (L) Transferrin Saturation 14 - 50 % 18 TIBC 240 - 450 ug/mL 234 (L) Folate >4.6 ng/mL >20.0 Vitamin B-12 210 - 1,033 pg/mL 762 RTC 3 months OVE per in person Friday clinic for constipaiton documented in this encounter Plan of Treatment Upcoming Encounters Date Type Department Care Team (Late st Contact Info) Description 01/05/2025 9:30 AM EDT Procedure Visit [facility] Interventional Pain Medicine [address] [place] [address] Eliseo Curiel MD [address] [place] [address] 02/07/2025 10:20 AM EST Office Visit [facility] Medicine Specialties [address] [place] [address] Melyssa Encinas PA [address] [place] [address] 02/24/2025 3:00 PM EST Office Visit [facility] Medicine Specialties [address] [place] [address] Rebekah Aragon PA [address] [place] [address] 04/13/2025 2:30 PM EST Office Visit [facility] Medicine Specialties [address] [place] [address] Jessu Tanner MD [address] [place] [address] 07/12/2025 11:00 AM EDT Ovarian Cancer Screening [facility] [address] [place] [address] Scheduled Referrals Name Type Priority Associated Diagnoses [...] plan has been documented for the patient 11/19/2024 9:21 AM EDT documented as of this encounter Care Teams Restaurant Hourly Team Member Relationship Specialty Start Date End Date Dru Giles MD PCP - General 11/21/21 documented as of this encounter
--- OUTSIDE RECORDS SUMMARY | 2024-11-24 20:00 | XMS_ITS | Clinical Summary ---
Author Organization Unknown Care Team Providers Care Poultry Slaughterer Name Role Phone ANALISA RILEY, SOM Unavailable Unavailable GATITO RN, ANKITA Unavailable Unavailable JEMMA PT, ANA Unavailable Unavailable RIGO ORGANIZATIONAL EFFECTIVENESS CONSULTANT, CORNELIUS Unavailable Unavailable CHERRI OT, XAVI Unavailable Unavailable CORRIE BAUGH, MILTON Unavailable Unavailable Payers Payer Name Policy Type Policy Number Effective Date Expira tion Date [employer].PPO.C.AUTH [id number] [facility].AUTH [id number] Problems Condition Name Condition Details Condition Category Status Onset Date Resolution Date Last Treatment Date Treating Clinician Comments METABOLIC ENCEPHALOPAT HY Active 09-24 00:00: 00 Encounter for sepsis aftercare Active 09-24 00:00: 00 RHABDOMYOLYS IS Active 09-24 00:00: 00 REPEATED FALLS Active 09-24 00:00: 00 DIZZINESS AND GIDDINESS Active 09-24 00:00: 00 ACUTE KIDNEY FAILURE, UNSPECIFIED Active 09-24 00:00: 00 ADJUSTMENT DISORDER WITH MIXED ANXIETY AND DEPRESSED MOOD Active 03-10 00:00: 00 MAJOR DEPRESSIVE DISORDER, SINGLE EPISODE, UNSPECIFIED Active 03-10 00:00: 00 GENERALIZED ANXIETY DISORDER Active 03-10 00:00: 00 PANIC DISORDER [EPISODIC PAROXYSMAL ANXIETY] Active 03-10 00:00: 00 MODERATE PERSISTENT ASTHMA, UNCOMPLICATE D Active 03-10 00:00: 00 OBSTRUCTIVE SLEEP APNEA (ADULT) (PEDIATRIC) Active 03-10 00:00: 00 SYSTEMIC LUPUS ERYTHEMATOSU S, UNSPECIFIED Active 03-10 00:00: 00 NONINFECTIVE GASTROENTERI TIS AND COLITIS, UNSPECIFIED Active 03-10 00:00: 00 PERSONAL HISTORY OF URINARY (TRACT) INFECTIONS Active 09-24 00:00: 00 FALL (ON) (FROM) UNSPECIFIED STAIRS AND STEPS, SUBS ENCNTR Active 09-24 00:00: 00 HISTORY OF FALLING Active 09-24 00:00: 00 Allergies, Adverse Reactions, Alerts Allergy Name Allergy Type Status Severity Reaction(s) Onset Date Inactive Date Treating Clinician Comments SHELLFISH AND SHELFISH PRODUCT Propensity to adverse reactions Active 09-30 12:44: 48 VENOM-BEES Propensity to adverse reactions Active 09-30 12:44: 39 WHEAT Propensity to adverse reactions Active 09-30 12:44: 55 YEAST Propensity to adverse reactions Active 09-30 12:45: 04 PORK... Propensity to adverse reactions Active 09-30 12:45: 11 PCN (PENICILLIN V POTASSIUM) Propensity to adverse reactions Active 09-30 12:45: 16 ......SULFA Propensity to adverse reactions Active 09-30 12:45: 23 BACTRIM Propensity to adverse reactions Active 09-30 12:45: 31 TRIMETHORPIN Propensity to adverse reactions Active 09-30 12:45: 40 Medications Ordered Medication Name Filled Medication Name Start Date Stop Date Current Medication? Ordering Clinician Indication Dosage Frequency Signature (SIG) Comments Components levofloxaci n 750 mg tablet 09-25 00:00: 00 09-30 00:00 :00 No [id number] Per instruc tions Per instructio ns (route: oral) Med Classific ation: Anti-Infe ctive Agents metronidazo le 500 mg tablet 09-25 00:00: 00 09-30 00:00 :00 No [id number] Per instruc tions Per instructio ns (route: oral) Med Classific ation: Anti-Infe ctive Agents Humira(CF) Pen 40 mg/0.4 mL subcutaneou s kit 09-21 00:00: 00 09-30 00:00 :00 No [id number] Per instruc tions Per instructio ns (route: subcutaneo us) Med Classific ation: Analgesic , Anti-infl ammatory or Antipyret ic levocetiriz ine 5 mg tablet 09-21 00:00: 00 09-30 00:00 :00 No [id number] Per instruc tions EVERY DAY Per instructio ns EVERY DAY (route: oral) Med Classific ation: Respirato ry Therapy Agents tramadol 50 mg tablet 09-08 00:00: 00 09-30 00:00 :00 No [id number] Per instruc tions EVERY 8 HOURS NEEDED Per instructio ns EVERY 8 HOURS NEEDED (route: oral) Med Classific ation: Analgesic , Anti-infl ammatory or Antipyret ic albuterol sulfate HFA 90 mcg/actuati on aerosol inhaler 09-07 00:00: 00 09-30 00:00 :00 No [id number] Per instruc tions EVERY 4 TO 6 HOURS NEEDED Per instructio ns EVERY 4 TO 6 HOURS NEEDED (route: inhalation ) Med Classific ation: Respirato ry Therapy Agents simvastatin 20 mg tablet 09-07 00:00: 00 09-30 00:00 :00 No [id number] Per instruc tions EVERY Per instructio ns EVERY (route: oral) Med Classific ation: Cardiovas cular Therapy Agents methotrexat e sodium 2.5 mg tablet 09-03 00:00: 00 09-30 00:00 :00 No [id number] Unavailable Per instruc tions ONCE exactly DIRECTED Per instructio ns ONCE exactly DIRECTED (route: oral) Med Classific ation: Antineopl astics azelastine 137 mcg (0.1 %) nasal spray 09-01 00:00: 00 09-30 00:00 :00 No [id number] Per instruc tions TWICE DAILY NEEDED DIRECTED Per instructio ns TWICE DAILY NEEDED DIRECTED (route: nasal) Med Classific ation: Respirato ry Therapy Agents Horizant ER 600 mg tablet,exte nded release 08-31 00:00: 00 09-30 00:00 :00 No [id number] Unavailable Per instruc tions EVERY DAY AT 5 EVENING Per instructio ns EVERY DAY AT 5 EVENING (route: oral) Med Classific ation: Central Nervous System Agents valsartan 160 mg tablet 09-30 00:00: 00 Yes [id number] BLADDER 160 mg DAILY 160 mg DAILY (route: oral) Med Classific ation: Cardiovas cular Therapy Agents mirtazapine 15 mg disintegrat ing tablet 09-30 00:00: 00 10-12 23:59 :00 No [id number] SLEEP 15 mg BEDTIME 15 mg BEDTIME (route: oral) Med Classific ation: Central Nervous System Agents folic acid 1 mg tablet 10-06 00:00: 00 Yes [id number] SUPPLEMENT 1 mg DAILY 1 mg TEE LY (route: oral) Med Classific ation: Electroly te Balance-N utritiona l Products Horizant ER 600 mg tablet,exte nded release 10-07 00:00: 00 Yes [id number] NA 600 mg DAILY 600 mg DAILY (route: oral) Med Classific ation: Central Nervous System Agents montelukast 10 mg tablet 10-06 00:00: 00 Yes [id number] A.LERGIES 10 mg BEDTIME 10 mg BEDTIME (route: oral) Med Classific ation: Respirato ry Therapy Agents pantoprazol e 40 mg tablet,adam yed release 10-07 00:00: 00 Yes [id number] GERD 40 mg DAILY 40 mg DAILY (route: oral) Med Classific ation: Gastroint estinal Therapy Agents tramadol 50 mg tablet 10-07 00:00: 00 Yes [id number] PAIN 50 mg EVERY 6 HOURS 50 mg EVERY 6 HOURS (route: oral) Med Classific ation: Analgesic , Anti-infl ammatory or Antipyret ic lactulose 10 gram/15 mL (15 mL) oral solution 10-11 00:00: 00 Yes [id number] LIVER Per instruc tions DAILY Per instructio ns DAILY (route: oral) Med Classific ation: Gastroint estinal Therapy Agents Humira Pen 40 mg/0.8 mL subcutaneou s kit 10-08 00:00: 00 Yes [id number] FOR RA 40 mg EVERY OTHER WEEK 40 mg EVERY OTHER WEEK (route: subcutaneo us) Med Classific ation: Analgesic , Anti-infl ammatory or Antipyret ic methotrexat e sodium 2.5 mg tablet 10-15 00:00: 00 Yes [id number] RA 2.5 mg EVERY OTHER WEEK 2.5 mg EVERY OTHER WEEK (route: oral) Med Classific ation: Antineopl astics Xifaxan 550 mg tablet 10-11 00:00: 00 Yes [id number] LIVER 550 mg 2 TIMES DAILY 550 mg 2 TIMES DAILY (route: oral) Med Classific ation: Anti-Infe ctive Agents Vital Signs Vital Name Observation Time Observation Value Commen ts Temperature 2024-11-25 15:43:00.000 98.6 [degF] Temperature 2024-11-19 12:54:00.000 98.4 [degF] Temperature 2024-11-10 14:56:00.000 98.2 [degF] Temperature 2024-11-01 10:46:00.000 98 [degF] Temperature 2024-10-22 10:33:00.000 98 [degF] Temperature 2024-10-21 13:10:00.000 98 [degF] Temperature 2024-10-21 11:09:00.000 98.6 [degF] Temperature 2024-10-15 12:17:00.000 98 [degF] Temperature 2024-10-12 17:28:00.000 98 [degF] Temperature 2024-10-12 13:59:00.000 98 [degF] Temperature 2024-10-06 14:42:00.000 98.7 [degF] Temperature 2024-10-05 13:51:00.000 98.3 [degF] Temperature 2024-10-05 10:53:00.000 98 [degF] Temperature 2024-09-30 12:45:00.000 98.6 [degF] BMI (%) 2024-09-30 12:20:03.000 46 kg/m2 Height 2024-09-30 12:19:58.000 67 [in_us] Pulse 2024-11-25 15:43:00.000 77 /min Pulse 2024-11-24 11:18:00.000 78 /min Pulse 2024-11-19 12:54:00.000 74 /min Pulse 2024-11-10 14:56:00.000 75 /min Pulse 2024-11-04 11:57:00.000 78 /min Pulse 2024-11-01 10:46:00.000 77 /min Pulse 2024-10-22 10:33:00.000 73 /min Pulse 2024-10-21 13:10:00.000 84 /min Pulse 2024-10-21 11:09:00.000 74 /min Pulse 2024-10-15 12:17:00.000 78 /min Pulse 2024-10-13 14:38:00.000 82 /min Pulse 2024-10-12 17:28:00.000 79 /min Pulse 2024-10-12 13:59:00.000 82 /min Pulse 2024-10-06 14:42:00.000 92 /min Pulse 2024-10-05 13:48:00.000 74 /min Pulse 2024-10-05 10:53:00.000 76 /min Pulse 2024-09-30 12:45:00.000 86 /min O2 Saturation (%) 2024-11-25 15:45:00.000 97 % O2 Saturation (%) 2024-11-24 11:18:00.000 98 % O2 Saturation (%) 2024-11-19 12:54:00.000 96 % O2 Saturation (%) 2024-11-10 14:59:00.000 98 % O2 Saturation (%) 2024-11-04 11:57:00.000 97 % O2 Saturation (%) 2024-11-01 10:46:00.000 97 % O2 Saturation (%) 2024-10-22 10:33:00.000 94 % O2 Saturation (%) 2024-10-21 13:10:00.000 97 % O2 Saturation (%) 2024-10-21 11:10:00.000 94 % O2 Saturation (%) 2024-10-15 12:17:00.000 97 % O2 Saturation (%) 2024-10-13 14:38:00.000 95 % O2 Saturation (%) 2024-10-12 13:59:00.000 92 % O2 Saturation (%) 2024-10-05 13:48:00.000 97 % O2 Saturation (%) 2024-10-05 10:53:00.000 96 % Respirations 2024-11-25 15:43:00.000 18 /min Respirations 2024-11-24 11:18:00.000 18 /min Respirations 2024-11-19 12:54:00.000 18 /min Respirations 2024-11-10 14:56:00.000 18 /min Respirations 2024-11-04 11:57:00.000 18 /min Respirations 2024-11-01 10:46:00.000 18 /min Respirations 2024-10-22 10:33:00.000 18 /min Respirations 2024-10-21 13:10:00.000 18 /min Respirations 2024-10-21 11:09:00.000 18 /min Respirations 2024-10-15 12:17:00.000 18 /min Respirations 2024-10-13 14:38:00.000 18 /min Respirations 2024-10-12 17:28:00.000 18 /min Respirations 2024-10-12 13:59:00.000 18 /min Respirations 2024-10-06 14:42:00.000 18 /min Respirations 2024-10-05 13:48:00.000 18 /min Respirations 2024-10-05 10:53:00.000 18 /min Respirations 2024-09-30 12:45:00.000 18 /min Weight (lbs) 2024-09-30 12:20:03.000 296 [lb_av] Systolic Blood Pressure 2024-11-25 15:43:00.000 113 mm [Hg] Systolic Blood Pressure 2024-11-24 11:18:00.000 130 mm [Hg] Systolic Blood Pressure 2024-11-19 12:54:00.000 128 mm [Hg] Systolic Blood Pressure 2024-11-10 14:56:00.000 143 mm [Hg] Systolic Blood Pressure 2024-11-04 11:57:00.000 126 mm [Hg] Systolic Blood Pressure 2024-11-01 10:46:00.000 132 mm [Hg] Systolic Blood Pressure 2024-10-22 10:33:00.000 112 mm [Hg] Systolic Blood Pressure 2024-10-21 13:10:00.000 130 mm [Hg] Systolic Blood Pressure 2024-10-21 11:09:00.000 124 mm [Hg] Systolic Blood Pressure 2024-10-15 12:17:00.000 120 mm [Hg] Systolic Blood Pressure 2024-10-13 14:38:00.000 126 mm [Hg] Systolic Blood Pressure 2024-10-12 17:28:00.000 124 mm [Hg] Systolic Blood Pressure 2024-10-12 13:59:00.000 128 mm [Hg] Systolic Blood Pressure 2024-10-06 14:42:00.000 134 mm [Hg] Systolic Blood Pressure 2024-10-05 13:48:00.000 132 mm [Hg] Systolic Blood Pressure 2024-10-05 10:53:00.000 136 mm [Hg] Systolic Blood Pressure 2024-09-30 12:45:00.000 138 mm [Hg] Diastolic Blood Pressure 2024-11-25 15:43:00.000 62 mm [Hg] Diastolic Blood Pressure 2024-11-24 11:18:00.000 72 mm [Hg] Diastolic Blood Pressure 2024-11-19 12:54:00.000 77 mm [Hg] Diastolic Blood Pressure 2024-11-10 14:56:00.000 80 mm [Hg] Diastolic Blood Pressure 2024-11-04 11:57:00.000 68 mm [Hg] Diastolic Blood Pressure 2024-11-01 10:46:00.000 82 mm [Hg] Diastolic Blood Pressure 2024-10-22 10:33:00.000 62 mm [Hg] Diastolic Blood Pressure 2024-10-21 13:10:00.000 88 mm [Hg] Diastolic Blood Pressure 2024-10-21 11:09:00.000 74 mm [Hg] Diastolic Blood Pressure 2024-10-15 12:17:00.000 58 mm [Hg] Diastolic Blood Pressure 2024-10-13 14:38:00.000 70 mm [Hg] Diastolic Blood Pressure 2024-10-12 17:28:00.000 80 mm [Hg] Diastolic Blood Pressure 2024-10-12 13:59:00.000 80 mm [Hg] Diastolic Blood Pressure 2024-10-06 14:42:00.000 72 mm [Hg] Diastolic Blood Pressure 2024-10-05 13:48:00.000 68 mm [Hg] Diastolic Blood Pressure 2024-10-05 10:53:00.000 68 mm [Hg] Diastolic Blood Pressure 2024-09-30 12:45:00.000 71 mm [Hg] Plan of Treatment Planned Activity Planned Date Details Comments Future Scheduled Test RN TO OBSE RVE, ASSESS, EVALUATE, AND DEVELOP AN INDIVIDUALIZED PLAN OF CARE. AGENCY MAY ACCEPT ORDERS FROM CONSULTING PHYSICIANS RN TO OBSERVE AND ASSESS, LAUNDRY MACHINE MECHANIC/BAGGAGE SMASHER TO OBSERVE FOR RISK FOR FALLS AND INSTRUCT IN FALL PREVENTION, HOME SAFETY, MEDICATION MANAGEMENT, INFECTION PREVENTION, AND NUTRITION MANAGEMENT. RN/LAUNDRY MACHINE MECHANIC/BAGGAGE SMASHER NURSE MAY PERFORM O2 SATURATION LEVEL ON ADMISSION AND PRN FOR RN TO ASSESS/LAUNDRY MACHINE MECHANIC TO OBSERVE PATIENT, WITH NOTIFICATION TO THE PHYSICIAN IF SATURATION IS 90% IN THE ABSENCE OF MORE SPECIFIC PARAMETERS FROM THE PHYSICIAN. AGENCY MAY PERFORM A RESUMPTION OF CARE VISIT FOLLOWING ANY HOSPITAL ADMISSION. RN/LAUNDRY MACHINE MECHANIC/BAGGAGE SMASHER TO MONITOR CO-MORBID CONDITIONS LISTED ON THE PLAN OF CARE AND ANY NEW CONDITIONS THAT PRESENT THEMSELVES DURING THIS EPISODE TO IDENTIFY CHANGES AND INTERVENE TO MINIMIZE COMPLICATIONS. [code = RN TO OBSERVE, ASSESS, EVALUATE, AND DEVELOP AN INDIVIDUALIZED PLAN OF CARE. AGENCY MAY ACCEPT ORDERS FROM CONSULTING PHYSICIANS RN TO OBSERVE AND ASSESS, LAUNDRY MACHINE MECHANIC/BAGGAGE SMASHER TO OBSERVE FOR RISK FOR FALLS AND INSTRUCT IN FALL PREVENTION, HOME SAFETY, MEDICATION MANAGEMENT, INFECTION PREVENTION, AND NUTRITION MANAGEMENT. RN/LAUNDRY MACHINE MECHANIC/BAGGAGE SMASHER NURSE MAY PERFORM O2 SATURATION LEVEL ON ADMISSION AND PRN FOR RN TO ASSESS/LAUNDRY MACHINE MECHANIC TO OBSERVE PATIENT, WITH NOTIFICATION TO THE PHYSICIAN IF SATURATION IS 90% IN THE ABSENCE OF MORE SPECIFIC PARAMETERS FROM THE PHYSICIAN. AGENCY MAY PERFORM A RESUMPTION OF CARE VISIT FOLLOWING ANY HOSPITAL ADMISSION. RN/LAUNDRY MACHINE MECHANIC/BAGGAGE SMASHER TO MONITOR CO-MORBID CONDITIONS LISTED ON THE PLAN OF CARE AND ANY NEW CONDITIONS THAT PRESENT THEMSELVES DURING THIS EPISODE TO IDENTIFY CHANGES AND INTERVENE TO MINIMIZE COMPLICATIONS.] Future Scheduled Test RISK FOR H OSPITALIZATION; RN TO ASSESS/TEACH, BAGGAGE SMASHER/LAUNDRY MACHINE MECHANIC TO OBSERVE/TEACH PATIENT/CAREGIVER ON RISK FOR HOSPITALIZATION/EMERGENCY ROOM VISITS, TEACH SIGNS AND SYMPTOMS THAT PUT PATIENT AT RISK, WHEN TO NOTIFY NURSE/PHYSICIAN OF COMPLICATIONS/DECLINE, AND WHEN TO CALL 911. [code = RISK FOR HOSPITALIZATION; RN TO ASSESS/TEACH, BAGGAGE SMASHER/LAUNDRY MACHINE MECHANIC TO OBSERVE/TEACH PATIENT/CAREGIVER ON RISK FOR HOSPITALIZATION/EMERGENCY ROOM VISITS, TEACH SIGNS AND SYMPTOMS THAT PUT PATIENT AT RISK, WHEN TO NOTIFY NURSE/PHYSICIAN OF COMPLICATIONS/DECLINE, AND WHEN TO CALL 911.] Future Scheduled Test NEUROLOGIC AL SYSTEM MANAGEMENT; RN TO ASSESS AND TEACH, BAGGAGE SMASHER/LAUNDRY MACHINE MECHANIC TO OBSERVE AND TEACH RELATED TO ALTERED NEUROLOGICAL STATUS TO MINIMIZE COMPLICATIONS AND REDUCE HOSPITALIZATION. [code = NEUROLOGICAL SYSTEM MANAGEMENT; RN TO ASSESS AND TEACH, BAGGAGE SMASHER/LAUNDRY MACHINE MECHANIC TO OBSERVE AND TEACH RELATED TO ALTERED NEUROLOGICAL STATUS TO MINIMIZE COMPLICATIONS AND REDUCE HOSPITALIZATION.] Future Scheduled Test GENITOURIN ANTONINA MANAGEMENT; RN TO ASSESS AND TEACH, LAUNDRY MACHINE MECHANIC/BAGGAGE SMASHER TO OBSERVE AND TEACH RELATED TO ALTERED GENITOURINARY STATUS TO MINIMIZE COMPLICATIONS AND REDUCE HOSPITALIZATION. [code = GENITOURINARY MANAGEMENT; RN TO ASSESS AND TEACH, LAUNDRY MACHINE MECHANIC/BAGGAGE SMASHER TO OBSERVE AND TEACH RELATED TO ALTERED GENITOURINARY STATUS TO MINIMIZE COMPLICATIONS AND REDUCE HOSPITALIZATION.] Future Scheduled Test URINARY TR ACT INFECTION MANAGEMENT; RN/BAGGAGE SMASHER/LAUNDRY MACHINE MECHANIC TO PROVIDE SKILLED TEACHING AND SELF- CARE MANAGEMENT RELATED TO UTI TO MINIMIZE COMPLICATIONS AND REDUCE THE RISK OF HOSPITALIZATION. [code = URINARY TRACT INFECTION MANAGEMENT; RN/BAGGAGE SMASHER/LAUNDRY MACHINE MECHANIC TO PROVIDE SKILLED TEACHING AND SELF- CARE MANAGEMENT RELATED TO UTI TO MINIMIZE COMPLICATIONS AND REDUCE THE RISK OF HOSPITALIZATION.] Future Scheduled Test FALL REDUC TION MANAGEMENT; RN TO ASSESS AND OBSERVE, LAUNDRY MACHINE MECHANIC/BAGGAGE SMASHER TO OBSERVE FALL RISK FACTORS AND EDUCATE PATIENT/CAREGIVER ON STRATEGIES TO MINIMIZE THE RISK OF FALLING. [code = FALL REDUCTION MANAGEMENT; RN TO ASSESS AND OBSERVE, LAUNDRY MACHINE MECHANIC/BAGGAGE SMASHER TO OBSERVE FALL RISK FACTORS AND EDUCATE PATIENT/CAREGIVER ON STRATEGIES TO MINIMIZE THE RISK OF FALLING.] Future Scheduled Test PHYSICAL T HERAPIST TO EVALUATE FOR BALANCE AND STRENGTHENING [code = PHYSICAL THERAPIST TO EVALUATE FOR BALANCE AND STRENGTHENING] Future Scheduled Test OCCUPATION AL THERAPIST TO EVALUATE FOR SAFETY IN ADLS AND IADLS [code = OCCUPATIONAL THERAPIST TO EVALUATE FOR SAFETY IN ADLS AND IADLS] Future Scheduled Test MEDICAL SO CIAL SERVICES FOR EVALUATION TO ASSESS SOCIAL AND EMOTIONAL FACTORS RELATED TO THE PATIENT'S ILLNESS, NEED FOR CARE, RESPONSE TO TREATMENT AND ADJUSTMENT TO CARE. [code = MEDICAL MEDICAL ESTHETICIAN FOR EVALUATION TO ASSESS SOCIAL AND EMOTIONAL FACTORS RELATED TO THE PATIENT'S ILLNESS, NEED FOR CARE, RESPONSE TO TREATMENT AND ADJUSTMENT TO CARE.] Future Scheduled Test AGENCY MAY PERFORM A RESUMPTION OF CARE VISIT FOLLOWING ANY HOSPITAL ADMISSION. OT TO EVALUATE, OBSERVE / ASSESS, AND MONITOR, ETHEL TO OBSERVE AND MONITOR, PROVIDE SKILLED THERAPEUTIC INTERVENTION, ACTIVITY, EDUCATION, AND TRAINING TO ADDRESS; IMPROVEMENT OF STRENGTH, ACTIVITY TOLERANCE, BALANCE AND SAFE SELF-CARE PERFORMANCE BATHING/SHOWERING (OT/RAILROAD CROSSING PROTECTION MAINTAINER) DRESSING (OT/RAILROAD CROSSING PROTECTION MAINTAINER) ACTIVITIES OF DAILY LIVING (OT/ETHEL) TOILET TRANSFER (OT/ETHEL) BATH/SHOWER TRANSFER (OT/RAILROAD CROSSING PROTECTION MAINTAINER) ITEM RETRIEVAL AND TRANSPORTATION (OT/ETHEL) ENERGY CONSERVATION/ACTIVITY DEMAND (OT/RAILROAD CROSSING PROTECTION MAINTAINER) OT/ETHEL TO MONITOR PATIENT WITH STABLE DEPRESSION ON SIGNS AND SYMPTOMS OF WORSENING DEPRESSION AND AVAILABLE RESOURCES INCLUDING [facility] [employer] [facility]. OT/ETHEL MAY EDUCATE ON PAIN MANAGEMENT CLINICALLY INDICATED, INCLUDING NON-PHARMACOLOGICAL PAIN REDUCTION TECHNIQUES AND USE OF CRYOTHERAPY OR HEAT UP TO 20 MIN AT A TIME FOR PAIN MANAGEMENT OT / ETHEL TO IDENTIFY FALL RISK FACTORS; EDUCATE THE PATIENT/CAREGIVER ON WAYS TO REDUCE FALL RISK FACTORS AND ESTABLISH HOME EXERCISE PROGRAM TO MINIMIZE FALL RISK. MAY TEACH THE PATIENT FLOOR RECOVERY WHEN CLINICALLY APPROPRIATE. [code = AGENCY MAY PERFORM A RESUMPTION OF CARE VISIT FOLLOWING ANY HOSPITAL ADMISSION. OT TO EVALUATE, OBSERVE / ASSESS, AND MONITOR, ETHEL TO OBSERVE AND MONITOR, PROVIDE SKILLED THERAPEUTIC INTERVENTION, ACTIVITY, EDUCATION, AND TRAINING TO ADDRESS; IMPROVEMENT OF STRENGTH, ACTIVITY TOLERANCE, BALANCE AND SAFE SELF-CARE PERFORMANCE BATHING/SHOWERING (OT/ETHEL) DRESSING (OT/ETHEL) ACTIVITIES OF DAILY LIVING (OT/ETHEL) TOILET TRANSFER (OT/ETHEL) BATH/SHOWER TRANSFER (OT/ETHEL) ITEM RETRIEVAL AND TRANSPORTATION (OT/RAILROAD CROSSING PROTECTION MAINTAINER) ENERGY CONSERVATION/ACTIVITY DEMAND (OT/ETHEL) OT/RAILROAD CROSSING PROTECTION MAINTAINER TO MONITOR PATIENT WITH STABLE DEPRESSION ON SIGNS AND SYMPTOMS OF WORSENING DEPRESSION AND AVAILABLE RESOURCES INCLUDING [employer] [facility]. OT/RAILROAD CROSSING PROTECTION MAINTAINER MAY EDUCATE ON PAIN MANAGEMENT CLINICALLY INDICATED, INCLUDING NON-PHARMACOLOGICAL PAIN REDUCTION TECHNIQUES AND USE OF CRYOTHERAPY OR HEAT UP TO 20 MIN AT A TIME FOR PAIN MANAGEMENT OT / ETHEL TO IDENTIFY FALL RISK FACTORS; EDUCATE THE PATIENT/CAREGIVER ON WAYS TO REDUCE FALL RISK FACTORS AND ESTABLISH HOME EXERCISE PROGRAM TO MINIMIZE FALL RISK. MAY TEACH THE PATIENT FLOOR RECOVERY WHEN CLINICALLY APPROPRIATE.] Future Scheduled Test AGENCY MAY PERFORM A RESUMPTION OF CARE VISIT FOLLOWING ANY HOSPITAL ADMISSION. PT TO EVALUATE, OBSERVE / ASSESS, AND MONITOR, ORGANIZATIONAL EFFECTIVENESS CONSULTANT TO OBSERVE AND MONITOR, PROVIDE SKILLED THERAPEUTIC INTERVENTION, ACTIVITY, EDUCATION, AND TRAINING TO ADDRESS; PT/ORGANIZATIONAL EFFECTIVENESS CONSULTANT TO PROVIDE GAIT TRAINING FOR IMPROVED MOBILITY AND /OR TO NORMALIZE GAIT PATTERN NEUROMUSCULAR RE-EDUCATION / BALANCE / POSTURAL CONTROL (PT) THERAPEUTIC EXERCISES AND ESTABLISHING A HOME EXERCISE PROGRAM (PT/ORGANIZATIONAL EFFECTIVENESS CONSULTANT) SIT TO/FROM STAND TRANSFERS (PT/ORGANIZATIONAL EFFECTIVENESS CONSULTANT) PT / ORGANIZATIONAL EFFECTIVENESS CONSULTANT TO MONITOR AND EDUCATE ON OXYGEN SATURATION DURING ADLS/IADLS, NOTIFY PHYSICIAN AND/OR THE RN CLINICAL SCORER HELPER FOR PHYSICIAN NOTIFICATION AND IF O2 SATS BELOW PHYSICIAN ORDERED PARAMETERS AFTER 10 MIN OF REST PT / ORGANIZATIONAL EFFECTIVENESS CONSULTANT TO INSTRUCT PATIENT/CAREGIVER ON RISK FOR HOSPITALIZATION/EMERGENCY ROOM VISITS, TEACH SIGNS AND SYMPTOMS THAT PUT PATIENT AT RISK, WHEN TO NOTIFY NURSE/PHYSICIAN OF COMPLICATIONS/DECLINE, AND WHEN TO CALL 911. PT/ORGANIZATIONAL EFFECTIVENESS CONSULTANT TO IDENTIFY FALL RISK FACTORS; EDUCATE THE PATIENT/CAREGIVER ON WAYS TO REDUCE FALL RISK FACTORS AND ESTABLISH HOME EXERCISE PROGRAM TO MINIMIZE FALL RISK. MAY TEACH THE PATIENT FLOOR RECOVERY WHEN CLINICALLY APPROPRIATE [code = AGENCY MAY PERFORM A RESUMPTION OF CARE VISIT FOLLOWING ANY HOSPITAL ADMISSION. PT TO EVALUATE, OBSERVE / ASSESS, AND MONITOR, ORGANIZATIONAL EFFECTIVENESS CONSULTANT TO OBSERVE AND MONITOR, PROVIDE SKILLED THERAPEUTIC INTERVENTION, ACTIVITY, EDUCATION, AND TRAINING TO ADDRESS; PT/ORGANIZATIONAL EFFECTIVENESS CONSULTANT TO PROVIDE GAIT TRAINING FOR IMPROVED MOBILITY AND /OR TO NORMALIZE GAIT PATTERN NEUROMUSCULAR RE-EDUCATION / BALANCE / POSTURAL CONTROL (PT) THERAPEUTIC EXERCISES AND ESTABLISHING A HOME EXERCISE PROGRAM (PT/ORGANIZATIONAL EFFECTIVENESS CONSULTANT) SIT TO/FROM STAND TRANSFERS (PT/ORGANIZATIONAL EFFECTIVENESS CONSULTANT) PT / ORGANIZATIONAL EFFECTIVENESS CONSULTANT TO MONITOR AND EDUCATE ON OXYGEN SATURATION DURING ADLS/IADLS, NOTIFY PHYSICIAN AND/OR THE RN CLINICAL SCORER HELPER FOR PHYSICIAN NOTIFICATION AND IF O2 SATS BELOW PHYSICIAN ORDERED PARAMETERS AFTER 10 MIN OF REST PT / ORGANIZATIONAL EFFECTIVENESS CONSULTANT TO INSTRUCT PATIENT/CAREGIVER ON RISK FOR HOSPITALIZATION/EMERGENCY ROOM VISITS, TEACH SIGNS AND SYMPTOMS THAT PUT PATIENT AT RISK, WHEN TO NOTIFY NURSE/PHYSICIAN OF COMPLICATIONS/DECLINE, AND WHEN TO CALL 911. PT/ORGANIZATIONAL EFFECTIVENESS CONSULTANT TO IDENTIFY FALL RISK FACTORS; EDUCATE THE PATIENT/CAREGIVER ON WAYS TO REDUCE FALL RISK FACTORS AND ESTABLISH HOME EXERCISE PROGRAM TO MINIMIZE FALL RISK. MAY TEACH THE PATIENT FLOOR RECOVERY WHEN CLINICALLY APPROPRIATE] Future Scheduled Test BOTTLE CASER EVALUA TION PERFORMED. NO ADDITIONAL VISITS REQUIRED. [code = BOTTLE CASER EVALUATION PERFORMED. NO ADDITIONAL VISITS REQUIRED.] Goal 2024-11-25 Patient Goal - TO GET STRONG ER Goal Provider Goal - A PLAN OF CARE WILL BE ESTABLISHED THAT MEETS THE PATIENT S NEEDS. PATIENT WILL DEMONSTRATE OXYGEN SATURATION WITHIN NORMAL LIMITS OR PATIENT S OPTIMAL LEVEL ESTABLISHED BY THE PHYSICIAN THROUGHOUT CARE. CHANGES TO CO-MORBID CONDITIONS AND ANY NEW CONDITIONS WILL BE IDENTIFIED AND REPORTED TO THE PHYSICIAN. Goal Provider Goal - PATIENT/CAREGIVER WILL VERBALIZE UNDERSTANDING OF SIGNS AND SYMPTOMS THAT PUT THE PATIENT AT RISK FOR HOSPITALIZATION /EMERGENCY ROOM VISITS, WHEN TO NOTIFY NURSE/PHYSICIAN OF COMPLICATIONS/DECLINE AND WHEN TO CALL 911. Goal Provider Goal - PATIENT / CAREGIVER WILL VERBALIZE/DEMONSTRATE UNDERSTANDING OF MEASURES TO MANAGE ALTERED NEUROLOGICAL STATUS BY 30 DAYS Goal Provider Goal - PATIENT / CAREGIVER WILL VERBALIZE/DEMONSTRATE UNDERSTANDING OF MEASURES TO MANAGE ALTERED GENITOURINARY STATUS BY END OF EPISODE. Goal Provider Goal - PATIENT/CAREGIVER WILL VERBALIZE/DEMONSTRATE UNDERSTANDING OF CARE AND MANAGEMENT OF URINARY TRACT INFECTION BY 60 DAYS Goal Provider Goal - PATIENT/CAREGIVER WILL VERBALIZE/DEMONSTRATE UNDERSTANDING OF FALL RISK FACTORS AND IMPLEMENT STRATEGIES TO MINIMIZE FALL RISK. PATIENT/CAREGIVER WILL VERBALIZE/DEMONSTRATE AN ABILITY TO ADHERE TO FALL REDUCTION SELF-MANAGEMENT AND LIFE-STYLE CHANGES BY 60 DAYS Goal Provider Goal - Goal Provider Goal - Goal Provider Goal - Goal Provider Goal - OT STG: PATIENT WILL DEMONSTRATE IMPROVED ABILITY TO PERFORM TOTAL BODY BATHING/SHOWERING AND REDUCE CAREGIVER BURDEN OF CARE FROM MINIMAL ASSISTANCE TO STAND BY ASSISTANCE WITHIN 4 WEEKS OT LTG: PATIENT WILL DEMONSTRATE IMPROVED ABILITY TO PERFORM BATHING/SHOWERING AND REDUCE CAREGIVER BURDEN FROM MINIMAL ASSISTANCE TO SUPERVISION ASSISTANCE WITHIN 8 WEEKS OT STG: PATIENT WILL DEMONSTRATE AND PROVED ABILITY TO PERFORM LOWER BODY DRESSING TO REDUCE CAREGIVER BURDEN OF CARE FROM MINIMAL ASSISTANCE TO STAND BY ASSISTANCE WITHIN 4 WEEKS OT LTG: PATIENT WILL DEMONSTRATE IMPROVED ABILITY TO PERFORM LOWER BODY DRESSING TO REDUCE CAREGIVER BURDEN FROM MINIMAL ASSISTANCE TO INDEPENDENCE WITHIN 6 WEEKS OT LTG: PATIENT WILL DEMONSTRATE IMPROVEMENT IN MODIFIED GEOVANY INDEX SCORE FROM 72 TO 90 INDICATING DECREASED DEPENDENCY ON CAREGIVER ASSISTANCE WITH ACTIVITIES OF DAILY LIVING WITHIN 8 WEEKS OT LTG: PATIENT WILL DEMONSTRATE IMPROVED ABILITY TO PERFORM TOILET TRANSFERS TO REDUCE FALL RISK AND RISK OF INCONTINENCE AND UTI DEVELOPMENT FROM MINIMAL ASSISTANCE TO INDEPENDENCE WITHIN 3 WEEKS UTILIZING SAFE MEASURES AND PRACTICES OT STG: PATIENT WILL DEMONSTRATE IMPROVED ABILITY UTILIZING SAFE MEASURES AND PRACTICES TO PERFORM TUB TRANSFER FROM MODERATE ASSISTANCE TO CONTACT GUARD ASSISTANCE WITHIN 6 WEEKS OT LTG: PATIENT WILL DEMONSTRATE IMPROVED ABILITY AND SAFETY TO PERFORM BATH/SHOWER TRANSFER FROM MODERATE ASSISTANCE TO SUPERVISION ASSISTANCE WITHIN 8 WEEKS OT STG PATIENT WILL BE ABLE TO SAFELY RETRIEVE AND TRANSPORT ADL AND I A D L ITEMS WITHIN HER HOME ENVIRONMENT FROM MODERATE ASSISTANCE TO CONTACT GUARD ASSISTANCE WITHIN 6 WEEKS OT LTG: PATIENT WILL BE ABLE TO SAFELY RETRIEVE AND TRANSPORT ADL AND IADL ITEMS WITHIN HER HOME ENVIRONMENT FROM MODERATE ASSISTANCE TO INDEPENDENT STATUS WITHIN 8 WEEKS FOR RETURN TO PRIOR LEVEL OF FUNCTION OF INDEPENDENT OT LTG: PATIENT WILL DEMONSTRATE IMPROVED ABILITY TO INCORPORATE ENERGY CONSERVATION MAINTAINING O2 SATS AT > 90% DURING IADL, STANDING ACTIVITIES LONGER THAN OR UP TO 10 MINUTES OT GOAL: EARLY IDENTIFICATION OF WORSENING DEPRESSION WITH TIMELY SN AND/OR PHYSICIAN NOTIFICATION. OT LTG: PATIENT WILL DEMONSTRATE UNDERSTANDING OF PAIN MANAGEMENT TECHNIQUES EVIDENCED BY REDUCED PAIN TO 1/10 OT LTG: PATIENT/CAREGIVER WILL BE ABLE TO IMPLEMENT RECOMMENDATIONS SPECIFIC TO FALL REDUCTION FOR IMPROVED ADL/IADL COMPLETION AND HOME SAFETY BY END OF EPISODE. Goal Provider Goal - PT STG: PATIENT WILL DEMONSTRATE IMPROVED 6 MINUTE WALK TEST AMBULATION FROM 75 FT CGA TO 150 FT SBA WITH APPROPRIATE AD WITHIN 4 WEEKS. PT LTG: PATIENT WILL DEMONSTRATE IMPROVED 6 MINUTE WALK TEST AMBULATION FROM 75 FT CGA TO 300 FT IND WITH APPROPRIATE AD WITHIN 8 WEEKS. PT LTG: PATIENT WILL DEMONSTRATE REDUCED FALL RISK EVIDENCED BY TUG TEST (CUT SCORE >11 SECONDS INDICATES INCREASED FALL RISK) IMPROVING FROM UNABLE TO LESS THAN OR EQUAL TO 20 SECONDS WITHIN 8 WEEKS PT STG: PATIENT WILL DEMONSTRATE IMPROVED FUNCTIONAL STRENGTH EVIDENCED BY FIVE TIMES SIT TO STAND TEST (CUT SCORE >12 SECONDS INDICATES AN INCREASED FALL RISK) IMPROVING FROM 41 SECONDS TO LESS THAN OR EQUAL TO 35 SECONDS WITHIN 4 WEEKS IN ORDER TO DECREASE FALL RISK PT LTG: PATIENT WILL DEMONSTRATE IMPROVED FUNCTIONAL STRENGTH EVIDENCED BY FIVE TIMES SIT TO STAND TEST (CUT SCORE >12 SECONDS INDICATES AN INCREASED FALL RISK) IMPROVING FROM 41 SECONDS TO LESS THAN OR EQUAL TO 12 SECONDS WITHIN 8 WEEKS IN ORDER TO DECREASE FALL RISK PT LTG: PATIENT WILL DEMONSTRATE INDEPENDENCE AND COMPLIANCE WITH HEP WITHIN 4 WEEKS PT STG: PATIENT WILL DEMONSTRATE IMPROVED ABILITY TO PERFORM SIT TO/FROM STAND TRANSFERS TO REDUCE THE RISK OF SKIN BREAKDOWN AND REDUCE FALL RISK FROM CGA TO IND WITHIN 8 WEEKS PT LTG: PATIENT WILL MAINTAIN OXYGEN SATURATION WITHIN PHYSICIAN ORDERED PARAMETERS THROUGHOUT EPISODE OF CARE. PT GOAL: PATIENT/CAREGIVER WILL VERBALIZE UNDERSTANDING OF SIGNS AND SYMPTOMS THAT PUT THE PATIENT AT RISK FOR HOSPITALIZATION /EMERGENCY ROOM VISITS, WHEN TO NOTIFY NURSE/PHYSICIAN OF COMPLICATIONS/DECLINE AND WHEN TO CALL 911. PT LTG: PATIENT/CAREGIVER WILL DEMONSTRATE ADHERENCE TO FALL REDUCTION SELF-MANAGEMENT AND REDUCING FALL RISK FACTORS TO MINIMIZE FALL RISK BY END OF EPISODE. Goal Provider Goal - Reason for Visit INDEPENDENT IN THE COMMUNITY Encounters Start Date/Time End Date/Time Encounter Type Admission Type Attending [facility] Care Department Encounter ID Discharge Date Discharge Status Discharge Condition Discharge Reason Percent Goals Met 2024-09-30 00:00:00 2024-11-25 00:00:00 Outpatient NEW ADMISSION GATITOANKITA ARAUJO [facility] [id number] 2024-11-25 00:00:00 DISCHARGE TO HOME OR SELF CARE [facility] T IN THE COMMUNITY HH - NO LONGER REQUIRES SKILLED CARE 75.68
--- OUTSIDE RECORDS SUMMARY | 2024-12-27 15:00 | XMS_ITS | Encounter Summary ---
Author Organization [facility] Address [address] [place] [address] Care Team Providers Care Clinical Assistant Name Role Phone Dru Giles MD Primary Care Provider [phone] Reason for Referral * Imaging (Routine) - Pending Review Specialty Diagnoses / Procedures Referred By Contac t Referred To Contact Radiology Diagnoses Chronic bilateral low back pain without sciatica Procedures MR Lumbar Spine wo IV Contrast Eliseo Curiel MD [address] Phone: tel: fax: Referral ID Status Reason Start Date Expiration Date V isits Requested Visits Authorized [id number] Pending Review 12/27/2024 06/28/2026 1 1 * Other Medical (Routine) - Authorized Specialty Diagnoses / Procedures Referred By Contac t Referred To Contact Pain Medicine Diagnoses Sacroiliitis, not elsewhere classified (CMS/HCC) Procedures Injection - Sacroiliac Joint Eliseo Curiel MD [address] [facility] [address] [address] Phone: tel: fax: [facility] Interventional Pain Medicine [address] [place] [address] Phone: tel: fax: Referral ID Status Reason Start Date Expiration Date V isits Requested Visits Authorized [id number] Authorized 12/27/2024 06/28/2026 1 1 Reason for Visit * Reason Comments Consult * Consultation (Routine) - Closed Specialty Diagnoses / Procedures Referred By Contac t Referred To Contact Pain Medicine Diagnoses Low back pain, unspecified Dru Giles MD [address] [place] [address] Phone: tel: fax: [facility] Inter[facility] Medicine [address] [place] [phone] Phone: tel: fax: Referral ID Status Reason Start Date Expiration Date V isits Requested Visits Authorized [id number] Closed Specialty Services Required 12/07/2024 06/08/2026 1 1 Encounter Details Date Type Department Care Team (Late st Contact Info) Description 12/27/2024 3:00 PM EDT Office Visit [facility] Interventional Pain Medicine [facility] [place] [address] Eliseo Curiel MD [address] [facility] [address] [place] [address] Sacroiliitis, not elsewhere classified (CMS/HCC) [...] file Travel History Travel Start Travel End [place] 12/15/2024 12/17/2024 documented as of this encounter [...] Note Subjective: Referring Physician: Dru Giles MD [address] [place] [address] Record Review: I personally reviewed referral, rheumatology records Chief Complaint: No chief complaint on file. History of Present Illness: Marizol Bishop is a 59 y.o. female with a [...] ice medication trials modified activities rest PT, [facility], started December 2024 Previous Interventions/Consults: None Other [...] Strength Right Left L2: 5/5 5/5 L3: 07/12 5/5 L4: 07/12 5/5 L5: 07/12 07/12 S1: 07/12 07/12 Sacroiliac Joint Exam Right Left Erin's Finger [...] Description 01/05/2025 9:30 AM EDT Procedure Visit [facility] Interventional Pain Medicine [address] [phone] Eliseo Curiel MD [address] [place] [address] 02/07/2025 10:20 AM EST Office Visit [facility] Medicine Specialties [address] [place] [address] Melyssa Encinas PA [address] [place] [address] 02/24/2025 3:00 PM EST Office Visit [facility] Medicine Specialties [address] [place] [phone] Rebekah Aragon PA [address] [place] [address] 04/13/2025 2:30 PM EST Office Visit [facility] [address] [place] [address] Jesus Tanner MD [address] [place] [address] 07/12/2025 11:00 AM EDT Ovarian Cancer Screening [facility] [address] [place] [address] Scheduled Orders Name Type Priority Associated Diagnoses Orde r Schedule Injection - Sacroiliac Joint Procedures Routine Sacroiliitis, not elsewhere classified (CMS/HCC) 1 Occurrences starting 12/27/2024 until 06/30/2026 MR Lumbar Spine wo IV Contrast Imaging Routine Chronic bilateral low back pain without sciatica Expected: 12/27/2024 (Approximate), Expires: 06/30/2026 documented as of this encounter Goals Goal Patient Goal Type Associated Problems Recent Progress Patient-Stated? Author Autogenerat ed Goal Care Plan Autogenerated Problem No Dana Leiva documented as of this encounter Visit Diagnoses Diagnosis Sacroiliitis, not elsewhere classified (CMS/HCC)- Primary Sacroiliitis, not elsewhere classified Chronic bilateral low back pain without sciatica documented in this encounter Additional Health Concerns [...] documented as of this encounter Care Teams Clinical Assistant Relationship Specialty Start Date End Date Dru Giles MD PCP - General 11/21/21 documented as of this encounter
--- OUTSIDE RECORDS SUMMARY | 2024-12-29 07:11 | XMS_ITS | Encounter Summary ---
Author Organization [facility] Address [address] [id number] Care Team Providers Care Merchandising Specialist Name Role Phone Dru Giles MD Primary Care Provider [phone] Reason for Referral * Imaging (Routine) - Closed Specialty Diagnoses / Procedures Referred By Giana lo Referred To Contact Radiology Diagnoses On methotrexate therapy Cirrhosis of liver without ascites, unspecified hepatic cirrhosis type Procedures US Liver Screen Rebekah Aragon PA [address] [address] Phone: tel: fax: Referral ID Status Reason Start Date Expiration Date Visits Re quested Visits Authorized [id number] Closed 11/04/2024 05/06/2026 1 1 Reason for Visit * Imaging (Routine) - Closed Specialty Diagnoses / Procedures Referred By Giana lo Referred To Contact Radiology Diagnoses On methotrexate therapy Cirrhosis of liver without ascites, unspecified hepatic cirrhosis type Procedures US Liver Screen Rebekah Aragon PA [id number] [place] [address] Phone: tel: fax: Referral ID Status Reason Start Date Expiration Date Visits Re quested Visits Authorized [id number] Closed 11/04/2024 05/06/2026 1 1 Encounter Details Date Type Department Care Team (Latest Contact Info) Description 12/29/2024 7:11 AM EDT - 12/29/2024 11:59 PM EDT Hospital Encounter [facility] Rad[facility] [address] [place] [address] On methotrexate therapy; Cirrhosis of liver without [...] file Travel History Travel Start Travel End [place] 12/15/2024 12/17/2024 documented as of this encounter Functional Status [...] by mouth 2 times a day. 12/23/2024 EPINEPHrine (AUVI-Q) 0.15 mg/0.15 mL IJ solution auto-injector injection Inject 0.0225 mL (0.0225 mg) into the muscle if needed for anaphylaxis. ergocalciferol 1.25 MG (82174 UT) capsule Take 1 capsule by mouth [...] every other day 1350 mL 2 10/07/2024 linaCLOtide (Linzess) 145 MCG capsuleIndication s:Chronic constipation Take 1 capsule by mouth daily before breakfast. 90 capsule 1 11/15/2024 meclizine (Antivert) 25 MG tablet 1 tablet. 12/06/2022 montelukast (Singulair) 10 MG tablet Take 1 tablet by mouth nightly. 09/11/2020 Multiple Vitamins-Minerals (EQ One Daily Migo.me [place]WAY) tablet Take 1 tablet by mouth daily. Nystop 036608 UNIT/GM powder apply topically to the affected [...] reactions 06/07/2024 documented as of this encounter Plan of Treatment Upcoming Encounters Date Type Department Care Team (Late st Contact Info) Description 01/05/2025 9:30 AM EDT Procedure Visit [facility] Interventional Pain Medicine [address] [facility] [place] [address] Eliseo Curiel MD [address] [facility] [address] [place] [address] 02/07/2025 10:20 AM EST Office Visit [facility] Medicine Specialties [address] [place] [address] Melyssa Encinas PA [address] [place] [address] 02/24/2025 3:00 PM EST Office Visit [facility] Specialties [address], [address] [place] [address] Rebekah Aragon PA [address] [place] [address] 04/13/2025 2:30 PM EST Office Visit [facility] Medicine Specialties [address], [facility] [place] [address] Jesus Tanner MD [address] [place] [address] 07/12/2025 11:00 AM EDT Ovarian Cancer Screening [facility] [address] [place] [address] documented as of this encounter Goals Goal [...] COMMUNICATION: Per this written report. Drafted by Moinque Wilson MD on 12/29/2024 8:29 AM Final [...] Rebekah TOTH IMAgusto US PROCEDURES Final Result documented in this [...] documented as of this encounter Care Teams Merchandising Specialist Relationship Specialty Start Date End Date Dru Giles MD PCP - General 11/21/21 documented as of this encounter
--- OUTSIDE RECORDS SUMMARY | 2024-12-29 13:30 | XMS_ITS | Encounter Summary ---
Author Organization [facility] Address [address] [place] [address] Care Team Providers Care Teaching Assistant Name Role Phone Dru Giles MD Primary Care Provider [phone] Reason for Visit * Reason Comments Inflammatory polyarthritis ([facility] Encounter Details Date Type Department Care Team (Late st Contact Info) Description 12/29/2024 1:30 PM EDT Office Visit [place] [facility] [address], [address] [place] [address] Jesus Tanner MD [address] [place] [address] Seronegative rheumatoid arthritis of multiple sites ([facility]/HCC) (Primary Dx); High risk medication use; Therapeutic [...] file Travel History Travel Start Travel End [place] 12/15/2024 12/17/2024 documented as of this encounter [...] preservative free 12/18/2023, 12/23/2024 Moderna COVID-19 Vaccine (Maritime Engineer) 12+ years 05/10/2020, 06/07/2020, 01/03/2021 Moderna COVID-19 [...] mg, Nightly Multiple Vitamins-Minerals (EQ One Daily [employer]) tablet 1 tablet, Daily Nystop [id number] UNIT/GM powder apply topically to the affected [...] Parts of this note were dictated using [employer] voice recognition software. As a result, errors may occur. When identified, these occupational health and safety adviser errors are corrected, but while every attempt [...] and other consulting physicians. Jesus Tanner MD Airfield Services Officer Division of Rheumatology Department of Internal Medicine [facility] Electronically Signed by: Jesus Tanner MD - 12/29/2024 - 4:51 PM documented in this encounter Plan of Treatment Upcoming Encounters Date Type Department Care Team (Late st Contact Info) Description 01/05/2025 9:30 AM EDT Procedure Visit [facility] Interventional Pain Medicine [address] [facility] [address] Eliseo Curiel MD [address] [place] [address] 02/07/2025 10:20 AM EST Office Visit [facility] Medicine Specialties [address], [address] [place] [address] Melyssa Encinas PA [address] [place] [address] 02/24/2025 3:00 PM EST Office Visit [facility] Medicine Specialties [address], [address] [place] [address] Rebekah Aragon PA [address] [place] [address] 04/13/2025 2:30 PM EST Office Visit [facility] Specialties [address], [address] [place] [address] Jesus Tanner MD [address] [place] [address] 07/12/2025 11:00 AM EDT Ovarian Cancer Screening [facility] Gynecology [address] [facility], 3rd [place] [address] documented as of this encounter Goals Goal Patient Goal Type Associated Problems Recent Progress Patient-Stated? Author Autogenerat ed Goal Care Plan Autogenerated Problem No Dana Leiva documented as of this encounter Results * (ABNORMAL) CBC and differential (12/29/2024 2:09 PM EDT) WBC Count 7.18 3.70 - 10.30 10*3/uL LAB HEMATOLOGY METHOD 12/29/2024 3:43 PM EDT [facility] RBC Count 4.06 3.90 - 5.20 10*6/uL LAB HEMATOLOGY METHOD 12/29/2024 3:43 PM EDT [facility] HGB 11.6 11.2 - 15.7 g/dL LAB HEMATOLOGY METHOD 12/29/2024 3:43 PM EDT [facility] HCT 36.8 34.0 - 45.0 % LAB HEMATOLOGY METHOD 12/29/2024 3:43 PM EDT [facility] Platelet Count 105(L) 155 - 369 10*3/uL LAB HEMATOLOGY METHOD 12/29/2024 3:43 PM EDT [facility] MCV 91 79 - 98 fL LAB HEMATOLOGY METHOD 12/29/2024 3:43 PM EDT [facility] MCH 28.6 26.0 - 32.0 pg LAB HEMATOLOGY METHOD 12/29/2024 3:43 PM EDT [facility] MCHC 31.5 30.7 - 35.5 g/dL LAB HEMATOLOGY METHOD 12/29/2024 3:43 PM EDT [facility] RDW 14.9(H) 11.5 - 14.5 % LAB HEMATOLOGY METHOD 12/29/2024 3:43 PM EDT [facility] MPV 11.0 8.8 - 12.5 fL LAB HEMATOLOGY METHOD 12/29/2024 3:43 PM EDT [facility] nRBC 0.0 <=0.0 per 100 WBCs LAB HEMATOLOGY METHOD 12/29/2024 3:43 PM EDT [facility] Differential Type Automated LAB HEMATOLOGY METHOD 12/29/2024 3:43 PM EDT [facility] Neutrophils % 48 % LAB HEMATOLOGY METHOD 12/29/2024 3:43 PM EDT [facility] Lymphocytes % 35 % LAB HEMATOLOGY METHOD 12/29/2024 3:43 PM EDT [facility] Monocytes % 13 % LAB HEMATOLOGY METHOD 12/29/2024 3:43 PM EDT [facility] Eosinophils % 3 % LAB HEMATOLOGY METHOD 12/29/2024 3:43 PM EDT [facility] Basophils % 1 % LAB HEMATOLOGY METHOD 12/29/2024 3:43 PM EDT [facility] Immature Granulocytes % 0 % LAB HEMATOLOGY METHOD 12/29/2024 3:43 PM EDT [facility] Neutrophils Absolute 3.49 1.60 - 6.10 10*3/uL LAB HEMATOLOGY METHOD 12/29/2024 3:43 PM EDT [facility] Lymphocytes Absolute 2.48 1.20 - 3.90 10*3/uL LAB HEMATOLOGY METHOD 12/29/2024 3:43 PM EDT [facility] Monocytes Absolute 0.93(H) 0.30 - 0.90 10*3/uL LAB HEMATOLOGY METHOD 12/29/2024 3:43 PM EDT [facility] Eosinophils Absolute 0.18 0.00 - 0.50 10*3/uL LAB HEMATOLOGY METHOD 12/29/2024 3:43 PM EDT [facility] Basophils Absolute 0.07 0.00 - 0.10 10*3/uL LAB HEMATOLOGY METHOD 12/29/2024 3:43 PM EDT [facility] Immature Granulocytes Absolute 0.03 0.00 - 0.06 10*3/uL LAB HEMATOLOGY METHOD 12/29/2024 3:43 PM EDT [facility] Blood Venous blood specimen / Unknown Venipuncture / Unknown 12/29/2024 2:09 PM EDT 12/29/2024 2:09 PM EDT Narrative [facility] - 12/29/2024 3:43 PM EDT Therapeutic decision making should be based on absolute values, rather than percentages. us Jesus Tanner MD LAB BLOOD ORDERABLES Final Re sult [facility] [address] [place] [address] documented in this encounter Visit Diagnoses Diagnosis [...] documented as of this encounter Care Teams Teaching Assistant Relationship Specialty Start Date End Date Dru Giles MD PCP - General 11/21/21 documented as of this encounter
--- OUTSIDE RECORDS SUMMARY | 2025-01-04 10:11 | XMS_ITS | Encounter Summary ---
Author Organization [facility] Address [address] [place] [address] Care Team Providers Care Valet Service Attendant Name Role Phone Dru Giles MD Primary Care Provider [phone] Encounter Details Date Type Department Care Team (Late Contact Info) Description 05/17/2024 Orders Only External Location [address] [place] [phone] Provider, External Social History Tobacco Use Types [...] file Travel History Travel Start Travel End [place] 12/15/2024 12/17/2024 documented as of this encounter Plan of Treatment Upcoming Encounters Date Type Department Care Team (Late Contact Info) Description 01/05/2025 9:30 AM EDT Procedure Visit [facility] Interventional Pain Medicine [address] [facility] [place] [address] Eliseo Curiel MD [address] [place] [address] 02/07/2025 10:20 AM EST Office Visit [facility] [address], [address] [place] [address] Melyssa Encinas PA [address] [place] [address] 02/24/2025 3:00 PM EST Office Visit [facility] [address], [address]nd [place] [address] Rebekah Aragon PA [address] [place] [address] 04/13/2025 2:30 PM EST Office Visit [facility] [address], [address] [place] [address] Jesus Tanner MD [address] [place] [address] 07/12/2025 11:00 AM EDT Ovarian Cancer Screening [facility] Gynecology [address] [facility], 3rd [place] [address] documented as of this encounter Procedures Procedure [...] documented as of this encounter Care Teams Valet Service Attendant Relationship Specialty Start Date End Date Dru Giles MD PCP - General 11/21/21 documented as of this encounter
--- OUTSIDE RECORDS SUMMARY | 2025-01-04 10:11 | XMS_ITS | Encounter Summary ---
Author Organization [facility] Address [address] [place] [address] Care Team Providers Care Airdox Fitter Name Role Phone Dru Giles MD Primary Care Provider [phone] Encounter Details Date Type Department Care Team (Late st Contact Info) Description 11/16/2024 Telephone [place] [facility] Medicine Specialties [address], [address] [place] [address] [place] [address] Social History Tobacco Use Types Packs/Day Years [...] file Travel History Travel Start Travel End [place] 12/15/2024 12/17/2024 documented as of this encounter Miscellaneous Notes * Telephone Encounter - Yesi Melgar - 11/22/2024 2:56 PM EDT Patient called to follow up I advised that Dr. Tanner was okay with her stopping the methotrexate I advised for her to stop the methotrexate and to continue the folic acid until her appointment Patient verbalized appreciation and understanding * Telephone Encounter - Yesi Melgar - 11/16/2024 4:14 PM EDT Patient called She wanted to let us know that her sizer hand - Dr. Shaw in [place] - is wanting for her to stop her methotrexate She states he told her it has to do with her platelet count She states her umbrella mender at - [facility] - is wanting for her to stop it as well CB: [phone] documented in this encounter Plan of Treatment Upcoming Encounters Date Type Department Care Team (Late st Contact Info) Description 01/05/2025 9:30 AM EDT Procedure Visit [facility] Interventional Pain Medicine [address] [facility] [place] [address] Eliseo Curiel MD [address] [facility] [address] [place] [address] 02/07/2025 10:20 AM EST Office Visit [facility] Medicine Specialties [address], [address] [place] [address] Melyssa Encinas PA [address] [place] [address] 02/24/2025 3:00 PM EST Office Visit [facility] Medicine Specialties [address], [address] [place] [address] Rebekah Aragon PA [address] [place] [address] 04/13/2025 2:30 PM EST Office Visit [place] [facility] Specialties [address], [address] [place] [address] Jesus Tanner MD [address] [place] [address] 07/12/2025 11:00 AM EDT Ovarian Cancer Screening [facility] [address], [address]rd [place] [address] documented as of this encounter Goals Goal [...] documented as of this encounter Care Teams Airdox Fitter Relationship Specialty Start Date End Date Dru Giles MD PCP - General 11/21/21 documented as of this encounter
--- OUTSIDE RECORDS SUMMARY | 2025-01-04 10:11 | XMS_ITS | Encounter Summary ---
Author Organization Healthcare Address [address] [place] [address] Care Team Providers Care Aircraft Navigator Name Role Phone Dru Giles MD Primary Care Provider [phone] Encounter Details Date Type Department Care Team (Latest Contact Info) Description 12/27/2024 Travel Social History Tobacco Use Types Packs/Day [...] file Travel History Travel Start Travel End [place] 12/15/2024 12/17/2024 documented as of this encounter Plan of Treatment Upcoming Encounters Date Type Department Care Team ( Contact Info) Description 01/05/2025 9:30 AM EDT Procedure Visit [facility] Interventional Pain Medicine [address] [place] [address] Eliseo Curiel MD [address] [facility] [address] [place] [address] 02/07/2025 10:20 AM EST Office Visit [facility] Medicine Specialties [address], [address] [place] [address] Melyssa Encinas PA [address] [place] [address] 02/24/2025 3:00 PM EST Office Visit [facility] Medicine Specialties [address], [address] [place] [address] Rebekah Aragon PA [address] [place] [address] 04/13/2025 2:30 PM EST Office Visit [facility] Medicine Specialties [address], [address] [place] [address] Jesus Tanner MD [address] [place] [address] 07/12/2025 11:00 AM EDT Ovarian Cancer Screening [facility] [address] [facility], 3rd [place] [address] documented as of this encounter Goals Goal [...] as of this encounter Care Teams Aircraft Navigator Relationship Specialty Start Date End Date Dru Giles MD PCP - General 11/21/21 documented as of this encounter
--- OUTSIDE RECORDS SUMMARY | 2025-01-04 10:11 | XMS_ITS | Encounter Summary ---
Author Organization Healthcare Address [address] [place] [address] Care Team Providers Care Laborer Salvage Name Role Phone Dru Giles MD Primary Care Provider [phone] Encounter Details Date Type Department Care Team (Late st Contact Info) Description 11/05/[address] [facility] Medicine Specialties [address], [address] [place] [address] Rebekah Aragon PA [address] [place] [address] Social History Tobacco Use Types [...] file Travel History Travel Start Travel End [place] 12/15/2024 12/17/2024 documented as of this encounter Plan of Treatment Upcoming Encounters Date Type Department Care Team ([facility] st Contact Info) Description 01/05/2025 9:30 AM EDT Procedure Visit [facility] Interventional Pain Medicine [address] [facility] [place] [address] Eliseo Curiel MD [address] [facility] [address] [place] [address] 02/07/2025 10:20 AM EST Office Visit [facility] [place] Specialties [address], [address] [place] [address] Melyssa Encinas PA [address] [place] [address] 02/24/2025 3:00 PM EST Office Visit [facility] [place] Specialties [address], [address] [place] [address] Rebekah Aragon PA [address] [place] [address] 04/13/2025 2:30 PM EST Office Visit [facility] [place] Specialties [address], [address] [place] [address] Jesus Tanner MD [address] [place] [address] 07/12/2025 11:00 AM EDT Ovarian Cancer Screening [facility] [address] [facility], 3rd [place] [address] documented as of this encounter Goals Goal Patient Goal Type Associated Problems Recent Progress Patient-Stated? Author Autogenerat ed Goal Care Plan Autogenerated Problem No Hernandez Christopher, Dana S documented as of this encounter Visit Diagnoses [...] documented as of this encounter Care Teams Laborer Salvage Relationship Specialty Start Date End Date Dru Giles MD PCP - General 11/21/21 documented as of this encounter
--- OUTSIDE RECORDS SUMMARY | 2025-01-04 10:11 | XMS_ITS | Encounter Summary ---
Author Organization Healthcare Address [address] [place] [address] Care Team Providers Care Manager Pest Name Role Phone Dru Giles MD Primary Care Provider [phone] Encounter Details Date Type Department Care Team [...] file Travel History Travel Start Travel End [place] 12/15/2024 12/17/2024 documented as of this encounter [...] Shira Gil documented as of this encounter Plan of Treatment Upcoming Encounters Date Type Department Care Team (Late st Contact Info) Description 01/05/2025 9:30 AM EDT Procedure Visit [facility] Interventional Pain Medicine [address] [phone] Eliseo Curiel MD [address] [facility] [address] [place] [address] 02/07/2025 10:20 AM EST Office Visit [facility] Medicine Specialties [address] [place] [address] Melyssa Encinas PA [address] [place] [address] 02/24/2025 3:00 PM EST Office Visit [facility] Medicine Specialties [address], [address] [place] [address] Rebekah Aragon PA [address] [facility] [address] [place] [address] 04/13/2025 2:30 PM EST Office Visit [facility] Medicine Specialties [address], [address] [place] [address] Jesus Tanner MD [address] [place] [address] 07/12/2025 11:00 AM EDT Ovarian Cancer Screening [facility] [address] [facility], 3rd [place] [address] documented as of this encounter Goals Goal Patient Goal Type Associated Problems Recent Progress Patient-Stated? Author Autogenerat ed Goal Care Plan Autogenerated Problem No Dana Leiva documented as of this encounter Visit Diagnoses Not on filedocumented in this encounter Additional Health Concerns Active Problems Noted Date Diagnosed Date Autogenerated Problem 08/24/2024 Assessment Noted Time PHQ-9 Depression Total Score: 0 11/16/19 10:39 AM EDT A fall risk assessment has been complete d for the patient 11/15/2024 10:40 AM EDT A Body Mass Index follow-up plan has been documented for the patient 11/19/2024 9:21 AM EDT documented as of this encounter Care Teams Manager Pest Relationship Specialty Start Date End Date Dru Giles MD PCP - General 11/21/21 documented as of this encounter
--- OUTSIDE RECORDS SUMMARY | 2025-01-04 10:11 | XMS_ITS | Encounter Summary ---
Author Organization Healthcare Address [address] [place] [address] Care Team Providers Care Automatic Grinding Machine Operator Name Role Phone Dru Giles MD Primary Care Provider [phone] Reason for Visit * Reason Onset Date Comments HCN - Patient Message 12/13/2024 Encounter Details Date Type Department Care Team (Late st Contact Info) Description 12/13/2024 Telephone [place] [facility] [address] [place] [phone] Provider, External HCN - Patient Message Social History Tobacco [...] file Travel History Travel Start Travel End [place] 12/15/2024 12/17/2024 documented as of this encounter Miscellaneous Notes * Telephone Encounter - Fatmata Remy - 12/13/2024 10:05 AM EDT Patient Phone Message Reason for Call: Status of referral Best contact number and optimal time of day to reach caller: [phone] Edna Note: Please do not reply to this [...] Description 01/05/2025 9:30 AM EDT Procedure Visit [facility] Interventional Pain Medicine [address] [facility] [place] [address] Eliseo Curiel MD [address] [facility] [address] [place] [address] 02/07/2025 10:20 AM EST Office Visit [facility] Medicine Specialties [address] [place] [address] Melyssa Encinas PA [address] [place] [address] 02/24/2025 3:00 PM EST Office Visit [facility] Specialties [address], [address] [place] [address] Rebekah Aragon PA [address] [place] [address] 04/13/2025 2:30 PM EST Office Visit [facility] Medicine Specialties [address], [address] [place] [address] Jesus Tanner MD [address] [place] [address] 07/12/2025 11:00 AM EDT Ovarian Cancer Screening [facility] [address], [address] [place] [address] documented as of this encounter Goals Goal [...] documented as of this encounter Care Teams Automatic Grinding Machine Operator Relationship Specialty Start Date End Date Dru Giles MD PCP - General 11/21/21 documented as of this encounter
--- OUTSIDE RECORDS SUMMARY | 2025-01-04 10:11 | XMS_ITS | Encounter Summary ---
Author Organization Healthcare Address [address] [place] [address] Care Team Providers Care School Bus Technician Name Role Phone Dru Giles MD Primary Care Provider [phone] Encounter Details Date Type Department Care Team (Late Contact Info) Description 05/06/2024 Orders Only External Location [address] [place] [address] Provider, External Social History Tobacco Use Types [...] Description 01/05/2025 9:30 AM EDT Procedure Visit [facility] Interventional Pain Medicine [address] [facility] [address] Eliseo Curiel MD [address] [facility] [address] [place] [address] 02/07/2025 10:20 AM EST Office Visit [facility] [address], [address] [place] [address] Melyssa Encinas PA [address] [place] [address] 02/24/2025 3:00 PM EST Office Visit [facility] [address], [address]nd [place] [address] Rebekah Aragon PA [address] [place] [address] 04/13/2025 2:30 PM EST Office Visit [facility] [address], [address] [place] [address] Jesus Tanner MD [address] [place] [address] 07/12/2025 11:00 AM EDT Ovarian Cancer Screening [facility] Gynecology [address] [facility], 3rd [place] [address] documented as of this encounter Procedures Procedure [...] documented as of this encounter Care Teams School Bus Technician Relationship Specialty Start Date End Date Dru Giles MD PCP - General 11/21/21 documented as of this encounter
--- OUTSIDE RECORDS SUMMARY | 2025-01-04 10:11 | XMS_ITS | Clinical Summary ---
Author Organization [facility] Address [address] [place] [address] Care Team Providers Care Communications Engineering Technician Name Role Phone Dru Giles MD Primary Care Provider [phone] Allergies Active Allergy Reactions Criticality Noted Date Comments Bee Venom Anaphylaxis High 04/03/2023 Compleat Other - please document in the comment field,Hives High 09/08/2023 Diphth-Acell Pertussis-Tetanus Other - please document in the comment field Low 09/08/2023 Dtap-Hepatitis B Recomb-Ipv Other - please document in the comment field Low 04/03/2023 Jqip-Vfv-Agh-Hepatitis B Recmb Other - please document in [...] Hives High 04/03/2023 Medications ergocalciferol 1.25 MG (99209 UT) capsule Take 1 capsule by mouth 1 time per week. Active montelukast (Singulair) 10 MG tablet Take 1 tablet by mouth nightly. Active valsartan (Diovan) 320 MG tablet Take 1 tablet by mouth every morning. Down to 160 Active Multiple Vitamins-Mineral s (EQ One Daily Anna Lozabai Rebyoo) tablet Take 1 tablet by mouth daily. [...] ON face, groin, OR arm pits Active Nystop 106652 UNIT/GM powder apply topically to the affected [...] before breakfast. 90 capsule 1 025 Active doxycycline (Vibra-Tabs) 100 MG tablet Take 1 tablet by mouth 2 times a day. Active Adalimumab (Humira, 2 Pen,) 40 MG/0.4ML Auto-injector KitIndications:S eronegative rheumatoid arthritis of multiple sites (CMS/HCC) Inject 1 each under the skin every 7 days. 4 each 3 Active methotrexate 2.5 MG tabletIndication s:Inflammatory polyarthritis Take 4 tablets (10 mg total) by mouth 1 time per week. Follow directions carefully, and ask to explain any part you do not understand. Take exactly as directed. 68 tablet 025 2024 Discontinued folic acid (Folvite) 1 MG tabletIndication s:Inflammatory polyarthritis,Hi gh risk medication use Take 1 tablet by mouth daily. As long as you are on methotrexate 90 tablet 1 025 2024 Discontinued Adalimumab (Humira, 2 Pen,) 40 MG/0.4ML Auto-injector KitIndications:S eronegative rheumatoid arthritis of multiple sites (CMS/HCC) Inject 1 each under the skin every 14 days. 0.8 each 3 025 2024 Discontinued(R eorder) Adalimumab (Humira, 2 Pen,) 40 MG/0.4ML Auto-injector KitIndications:S eronegative rheumatoid arthritis of multiple sites (CMS/HCC) Inject 1 each under the skin every 14 days. 2 each 025 2024 Discontinued(R eorder) Active Problems Problem Noted Date Diagnosed Date Liver lesion 01/13/2024 Therapeutic drug monitoring 01/23/2023 Seronegative rheumatoid arthritis of multiple si christine 10/24/2022 Elevated liver enzymes 03/28/2022 Fatty liver 03/28/2022 Morbid obesity with body mass index (BMI) of 40. 0 or higher 05/15/2021 Polyarticular gout 11/02/2020 Lupus arthritis 11/02/2020 On methotrexate therapy 11/02/2020 Positive KAMERON (antinuclear antibody) 11/02/2020 Inflammatory [...] Cirrhosis of liver without ascites 07/13/2022 10/08/2024 High risk medication use 11/02/2020 Encounters Date Type Department Care Team Description 12/29/2024 1:30 PM EDT Office Visit [facility] Medicine Specialties [address], [address] [place] [phone] Jesus Tanner MD Seronegative rheumatoid arthritis of multiple sites ([facility]/HCC) (Primary Dx); High risk medication use; Therapeutic drug monitoring 12/29/2024 7:11 AM EDT - 12/29/2024 11:59 PM EDT Hospital Encounter [facility] [address] [place] [address] On methotrexate therapy; Cirrhosis of liver without ascites, unspecified hepatic cirrhosis type Discharge Disposition: Home or Self Care 12/29/2024 Telephone [facility]ties [address], [address] [place] [phone] Ajit Jane, PharmD 12/29/2024 Telephone [facility] [address], [address] [place] [phone] Gibson Huffman, PharmD q7 days Humira 12/29/2024 Orders Only [facility]ties [address], [address] [place] [address] Gibson Huffman, PharmD Seronegative rheumatoid arthritis of multiple sites (CMS/HCC) (Primary Dx) 12/29/2024 Travel 12/27/2024 3:00 PM EDT Office Visit [facility] Interventional Pain Medicine [address] [place] [phone] Eliseo Curiel MD Sacroiliitis, not elsewhere classified ([facility]/HCC) (Primary Dx); Chronic bilateral low back pain without sciatica 12/27/2024 Travel 12/21/2024 Refill [facility] Medicine [facility]ties [address], [address] [place] [phone] Jesus Tanner MD Seronegative rheumatoid arthritis of multiple sites ([facility]/HCC) 12/13/2024 Telephone [facility] [address], [address] [place] [phone] Provider, External HCN - Patient Message 11/16/2024 Telephone [facility] Medicine Specialties [address], [address] [place] [phone] Yesi Melgar 11/15/2024 10:20 AM EDT Office Visit [facility] Medicine Specialties [address], [address] [place] [phone] Melyssa Encinas PA Chronic constipation (Primary Dx); Gastroesophageal reflux disease, unspecified whether esophagitis present 11/15/2024 Travel 11/05/2024 Results Follow-Up [facility] Medicine Specialties [address], [address] [place] [address] Rebekah Aragon PA 11/04/2024 3:40 PM EDT Office Visit [facility] Medicine Specialties [address], [address]nd [place] [address] Rebekah Aragon PA On methotrexate therapy (Primary Dx); Cirrhosis of liver without ascites, unspecified hepatic cirrhosis type ([facility]/HCC) 11/04/2024 Travel 11/01/2024 Telephone [facility]ties [address], [address] [place] [phone] Yesi Melgar 10/26/2024 Telephone [facility] Medicine [facility]ties [address], [address] [place] [phone] Yesi Melgar 10/24/2024 Results Follow[facility] [address], [address] [place] [address] Ari Barfield MD 10/14/2024 12:41 PM EDT Anesthesia Event [facility] [address] [place] [phone] Alverto Barney MD 10/14/2024 11:56 AM EDT - 10/14/2024 11:59 PM EDT Hospital Encounter [facility] [address] [place] [address] Alverto Barney MD Konjeti, Venkata Rajesh, MD Wellman, Tyler M, CRNA Guagenti, Patricia L Gastroesophageal reflux disease, unspecified whether esophagitis present; History of cirrhosis; Bilious vomiting with nausea Discharge Disposition: Home or Self Care 10/14/2024 Travel 10/07/2024 1:20 PM EDT Office Visit [facility] Medicine Specialties [address], [address] [place] [address] Rebekah Aragon, PA Decompensated cirrhosis (CMS/HCC) (Primary Dx); Liver lesion; High risk medication use; Elevated liver enzymes; Other ascites; Hepatic encephalopathy (CMS/HCC) 10/07/2024 Travel from Last 3 Months Immunizations Immunization Administration Dates Next Due Influenza, injectable, quadr ivalent, preservative free 01/01/2023,01/04/2022,12/09/2020,11/29 Influenza, seasonal, injecta ble, preservative free 12/23/2024,12/18/2023 Moderna COVID-19 Vaccine (Re d Cap) 12+ years 06/07/2020,05/10/2020 Pneumococcal Polysaccharide PPV23 02/19/2022 Rsvpref, Recombinant, Protei n Subunit, Adjuvent 09/23/2024 Tdap 09/24/2024 Zoster, Recombinant 09/23/2024,05/08/2023,2022 Family History Medical History Relation Name Comments Heart defect Brother 1 Shemar Hypertension Brother 1 Shemar Pancreatic cancer Brother 1 Shemar Heart defect Brother 2 Les Hypertension Brother 2 Les Hypertension Brother 3 Shemar and Les Edna Diabetes Father Pneumonia Maternal Grandfather No Known Problems Mother Autoimmune disease Mother's Sister Kayleen Heaton Relation Name Status Comments Brother 1 Shemar Brother 2 Les Alive Brother 3 Shemar and Arnulfo Bishop Alive Father Maternal Grandfather Maternal Grandmother Mother Alive Mother's Sister Kaylene Heaton Alive Paternal Grandmother Social History Tobacco [...] file Travel History Travel Start Travel End [place] 12/15/2024 12/17/2024 Last Filed Vital Signs Vital Sign Reading [...] Mass Index 43.85 12/29/2024 1:14 PM EDT Plan of Treatment Upcoming Encounters Date Type Department Care Team (Late st Contact Info) Description 01/05/2025 9:30 AM EDT Procedure Visit [facility] Interventional Pain Medicine [address] [place] [address] Eliseo Curiel MD [address] [place] [address] 02/07/2025 10:20 AM EST Office Visit [facility] Medicine Specialties [address], [address] [place] [phone] Melyssa Encinas PA [address] [place] [address] 02/24/2025 3:00 PM EST Office Visit [facility] Medicine Specialties [address], [address] [place] [address] Rebekah Aragon PA [address] [place] [phone] 04/13/2025 2:30 PM EST Office Visit [facility] Medicine [facility]ties [address], [address] [place] [phone] Jesus Tanner MD [address] [place] [phone] 07/12/2025 11:00 AM EDT Ovarian Cancer Screening [facility] [address] [place] [address] Health Maintenance Due Date Last Done Comments [...] (2 of 2 - PCV) 02/19/2023 02/19/2022 [id number] Vaccine (5 - season) 2024 12/12/2021, 01/03/2021, 06/07/2020, Additional history exists [facility]-Depression Screening 12/29/2025 12/29/2024, 12/09 Colonoscopy 06/01/2031 05/31/2021 [facility]-Colorectal Cancer Screening 06/01/2031 [facility]-DTaP,Tdap,and Td Vaccines (2 - Td or Tdap) 09/24/2034 09/24/2024 [facility]-Diabetes: Hemoglobin A1C Discontinued 03/28/2022, 10/06/2020 [facility]-Hepatitis C Screening Completed 2024, 03/28/2022, 08/24/2021, Additional history exists [facility]-HIV Screening Completed 05/27/2024, 10/02/2020 [facility]-RSV Vaccine: 60+ Years or Discontinued 09/23/2024 [facility]-Zoster Vaccines Completed 09/23/2024, 05/08/2023, 10/24/2022 [facility]-Influenza Vaccine Completed 12/23/2024 , 12/18/2023, 01/01/2023, Additional history exists [facility]-Obesity Intervention Completed 025, 12/27/2024, 11/15/2024, Additional history exists HPV Vaccines Aged Out [...] Diagnosis Comments CBC WITH AUTO DIFFERENTIAL Routine 12/29/2024 2:09 PM EDT Therapeutic drug monitoring US ABDOMEN DOPPLER COMPLETE Routine 12/29/2024 7:45 AM EDT Cirrhosis of liver without ascites, unspecified hepatic cirrhosis type US LIVER SCREEN Routine 12/29/2024 7:45 AM EDT On methotrexate therapy Cirrhosis of liver without ascites, unspecified hepatic cirrhosis type COMPREHENSIVE METABOLIC PANEL, PLASMA Routine 11/04/2024 4:54 [...] History of cirrhosis Bilious vomiting with nausea HIV 1/2 ANTIBODY/ANTIGEN SCREEN WITH REFLEX TO [...] Relevant to Health Maintenance Results * (ABNORMAL) CBC and differential (12/29/2024 2:09 PM EDT) Only the most recent of2 resultswithin the time period is included. WBC Count 7.18 3.70 - 10.30 10*3/uL LAB HEMATOLOGY METHOD 12/29/2024 3:43 PM EDT [facility] RBC Count 4.06 3.90 - 5.20 10*6/uL LAB HEMATOLOGY METHOD 12/29/2024 3:43 PM EDT [facility] HGB 11.6 11.2 - 15.7 g/dL LAB HEMATOLOGY METHOD 12/29/2024 3:43 PM EDT [facility] HCT 36.8 34.0 - 45.0 % LAB HEMATOLOGY METHOD 12/29/2024 3:43 PM EDT [facility] Platelet Count 105(L) 155 - 369 10*3/uL LAB HEMATOLOGY METHOD 12/29/2024 3:43 PM EDT [facility] MCV 91 79 - 98 fL LAB HEMATOLOGY METHOD 12/29/2024 3:43 PM EDT [facility] MCH 28.6 26.0 - 32.0 pg LAB HEMATOLOGY METHOD 12/29/2024 3:43 PM EDT [facility] MCHC 31.5 30.7 - 35.5 g/dL LAB HEMATOLOGY METHOD 12/29/2024 3:43 PM EDT [facility] RDW 14.9(H) 11.5 - 14.5 % LAB HEMATOLOGY METHOD 12/29/2024 3:43 PM EDT [facility] MPV 11.0 8.8 - 12.5 fL LAB HEMATOLOGY METHOD 12/29/2024 3:43 PM EDT [facility] nRBC 0.0 <=0.0 per 100 WBCs LAB HEMATOLOGY METHOD 12/29/2024 3:43 PM EDT [facility] Differential Type Automated LAB HEMATOLOGY METHOD 12/29/2024 3:43 PM EDT [facility] Neutrophils % 48 % LAB HEMATOLOGY METHOD 12/29/2024 3:43 PM EDT [facility] Lymphocytes % 35 % LAB HEMATOLOGY METHOD 12/29/2024 3:43 PM EDT [facility] Monocytes % 13 % LAB HEMATOLOGY METHOD 12/29/2024 3:43 PM EDT [facility] Eosinophils % 3 % LAB HEMATOLOGY METHOD 12/29/2024 3:43 PM EDT [facility] Basophils % 1 % LAB HEMATOLOGY METHOD 12/29/2024 3:43 PM EDT [facility] Immature Granulocytes % 0 % LAB HEMATOLOGY METHOD 12/29/2024 3:43 PM EDT [facility] Neutrophils Absolute 3.49 1.60 - 6.10 10*3/uL LAB HEMATOLOGY METHOD 12/29/2024 3:43 PM EDT [facility] Lymphocytes Absolute 2.48 1.20 - 3.90 10*3/uL LAB HEMATOLOGY METHOD 12/29/2024 3:43 PM EDT [facility] Monocytes Absolute 0.93(H) 0.30 - 0.90 10*3/uL LAB HEMATOLOGY METHOD 12/29/2024 3:43 PM EDT [facility] Eosinophils Absolute 0.18 0.00 - 0.50 10*3/uL LAB HEMATOLOGY METHOD 12/29/2024 3:43 PM EDT [facility] Basophils Absolute 0.07 0.00 - 0.10 10*3/uL LAB HEMATOLOGY METHOD 12/29/2024 3:43 PM EDT [facility] Immature Granulocytes Absolute 0.03 0.00 - 0.06 10*3/uL LAB HEMATOLOGY METHOD 12/29/2024 3:43 PM EDT [facility] Blood Venous blood specimen / Unknown Venipuncture / Unknown 12/29/2024 2:09 PM EDT 12/29/2024 2:09 PM EDT Narrative [facility] - 12/29/2024 3:43 PM EDT Therapeutic decision making should be based on absolute values, rather than percentages. Jesus Tanner MD LAB BLOOD ORDERABLES Final Re sult [facility] [address] [place] [address] * US Abdomen Doppler Complete (12/29/2024 7:45 [...] on 12/29/2024 8:30 AM us Rebekah TOTH IMG US PROCEDURES Final Result * US Liver [...] Rebekah TOTH IMG US PROCEDURES Final Result * Alpha Fetoprotein, Serum (11/04/2024 4:54 PM EDT) Alpha Fetoprotein, Serum 7.8 <10.0 ng/mL 11/04/2024 6:29 PM EDT [facility] Blood Venous blood specimen / Unknown Venipuncture / Unknown 11/04/2024 4:54 PM EDT 11/04/2024 4:55 PM EDT Narrative [facility] - 11/04/2024 6:29 PM EDT Performed by Brandi electrochemiluminescent immunoassay which is traceable to the 1st AFP IRP WHO Reference standard 72/255. Results obtained with different test methods or kits cannot be used interchangeably. Rebekah TOTH LAB BLOOD ORDERABLES Final Resu lt [facility] [address] [place] [address] * (ABNORMAL) Protime-INR (11/04/2024 4:54 PM EDT) Prothrombin Time 18.0(H) 12.0 - 14.3 sec LAB COAGULATION METHOD 11/04/2024 6:15 PM EDT [facility] INR 1.5(H) 0.9 - 1.1 LAB COAGULATION METHOD 11/04/2024 6:15 PM EDT [facility] Blood Venous blood specimen / Unknown Venipuncture / Unknown 11/04/2024 4:54 PM EDT 11/04/2024 4:55 PM EDT Narrative [facility] - 11/04/2024 6:15 PM EDT OPTIMAL INR RANGES FOR PATIENT ON ORAL ANTICOAGULANT THERAPY Prevention of venous thromboembolism INR 2.0 to 3.0 In patients with heart disease: Atrial fibrillation INR 2.0 to 3.0 Valvular heart disease INR 2.0 to 3.0 Tissue heart valves INR 2.0 to 3.0 Mechanical prosthetic valves INR 2.5 to 3.5 Prevention of recurrent NC INR 2.5 to 3.5 Rebekah TOTH LAB BLOOD ORDERABLES Final Resu lt Performing Organization Address [facility]/ZIP Co de Phone Number [facility] [address] [place] [address] * (ABNORMAL) Ammonia, Plasma (11/04/2024 4:54 PM EDT) Ammonia 58(H) 11 - 51 umol/L 11/04/2024 5:48 PM EDT [facility] Blood Venous blood specimen / Unknown Venipuncture / Unknown 11/04/2024 4:54 PM EDT 11/04/2024 4:55 PM EDT Rebekah TOTH LAB BLOOD ORDERABLES Final Resu lt Performing Organization Address [facility]/ZIP Co de Phone Number [facility] [address] [place] [address] * (ABNORMAL) Comprehensive metabolic panel (11/04/2024 4:54 PM EDT) Glucose, Plasma 74 74 - 99 mg/dL 11/04/2024 6:21 PM EDT [facility] BUN, Plasma 12 7 - 21 mg/dL 11/04/2024 6:21 PM EDT [facility] Creatinine, Plasma 0.82 0.60 - 1.10 mg/dL 11/04/2024 6:21 PM EDT [facility] BUN/Creatinine Ratio 15 11/04/2024 6:21 PM EDT [facility] Sodium, Plasma 141 136 - 145 mmol/L 11/04/2024 6:21 PM EDT [facility] Potassium, Plasma 4.3 3.6 - 4.9 mmol/L 11/04/2024 6:21 PM EDT [facility] Chloride, Plasma 109(H) 97 - 107 mmol/L 11/04/2024 6:21 PM EDT [facility] CO2, Plasma 20(L) 22 - 29 mmol/L 11/04/2024 6:21 PM EDT [facility] Anion Gap 12 6 - 16 mmol/L 11/04/2024 6:21 PM EDT [facility] Total Calcium, Plasma 9.5 8.9 - 10.2 mg/dL 11/04/2024 6:21 PM EDT [facility] Total Protein 7.8 6.3 - 7.9 g/dL 11/04/2024 6:21 PM EDT [facility] Albumin, Plasma 3.4(L) 3.5 - 5.2 g/dL 11/04/2024 6:21 PM EDT [facility] AST, Plasma 70(H) 10 - 35 U/L 11/04/2024 6:21 PM EDT [facility] Comment:Hemolyzed, result ma y be falsely increased. ALT, Plasma 30 10 - 35 U/L 11/04/2024 6:21 PM EDT [facility] Alkaline Phosphatase, Plasma 199(H) 46 - 142 U/L 11/04/2024 6:21 PM EDT [facility] Total Bilirubin, Plasma 0.9 0.2 - 1.1 mg/dL 11/04/2024 6:21 PM EDT [facility] eGFRcr 82.5 mL/min/1.7 3m*2 11/04/2024 6:21 PM EDT [facility] Comment:Reported eGFRcr in m L/min/1.73m2 is based the CKD-EPI 2020 equation that does not use a race coefficient. Blood Venous blood specimen / Unknown Venipuncture / Unknown 11/04/2024 4:54 PM EDT 11/04/2024 4:55 PM EDT us Rebekah TOTH LAB BLOOD ORDERABLES Final Resu lt [facility] [address] [place] [address] * EGD (10/14/2024 1:00 PM EDT) Anatomical [...] Ari Barfield MD Proceduralist Reji Dewey Endo Catalog Specialist Israel Murrell CRNA INTEGRATION SOFTWARE ENGINEER Preprocedure A history and physical has [...] PM EDT) Case Report Surgical Pathology Case: [id number] Authorizing Provider: Ari Barfield, Collected: 10/14/2024 1253 MD Ordering Location: [facility] Endoscopy Received: 10/14/2024 1416 Pathologist: Bubba Bryan MD Specimen: Stomach, biopsy 10/15/2024 4:29 PM EDT [facility] Final Diagnosis STOMACH, BIOPSY: - REACTIVE GASTROPATHIC CHANGES - NO EVIDENCE OF HELICOBACTER-LIKE ORGANISMS ON ROUTINE STAIN 10/15/2024 4:29 PM EDT [facility] at 1629 EDT Clinical Information [...] duodenum appeared normal. 10/15/2024 4:29 PM EDT [facility] Gross Description A. BIOPSY Received in formalin labeled b iopsy, stomach , are 2 pink-white soft fragments of tissue measuring from 0.3 cm to 0.6 cm in greatest dimension. Entirely submitted in cassette A1. Cold Time: 1m Lakisha Dubois 10/15/2024 4:29 PM EDT [facility] Note: A resident was involved in the service. I attest I examined the relevant preparations for the specimens and confirmed the diagnosis or interpretation. 10/15/2024 4:29 PM EDT [facility] Tissue Stomach structure / Unknown 10/14/2024 12:53 PM EDT 10/14/2024 2:16 PM EDT Ari Barfield MD LAB PATHOLOGY ORDERABL ES Final Result Performing Organization Address [facility]/ZIP Co de Phone Number [facility] [address] [place] [address] * HIV 1 & 2 Antibody/Antigen Screen (05/27/2024 1:38 PM EDT) Pathologist [facility] HIV 1 & 2 Antibody/Antigen Screen Non Reactive Non Reactive 05/27/2024 2:56 PM EDT [facility] Comment:Screening for HIV 1 & 2 antibodies, and P24 antigen is NONREACTIVE. No confirmatory testing is required. Blood Venous blood specimen / Unknown Venipuncture / Unknown 05/27/2024 1:38 PM EDT 05/27/2024 1:41 PM EDT Marv Brown MD LAB BLOOD ORDERABLES Final Res ult Performing Organization Address [facility]/ZIP Co de Phone Number [facility] [address] [place] [address] * Hepatitis C Antibody (04/19/2024 3:28 PM EST) [facility] Hepatitis C Antibody Negative Negative 04/19/2024 5:40 PM EST [facility] Blood Venous blood specimen / Unknown Venipuncture / Unknown 04/19/2024 3:28 PM EST 04/19/2024 3:29 PM EST Jesus Tanner MD LAB BLOOD ORDERABLES Final Re sult Performing Organization Address City/[facility]/ZIP Co de Phone Number [facility] [address] [place] [address] * Hemoglobin A1c (03/28/2022 12:04 PM EST) Hemoglobin A1c 5.5 <5.7 % 03/28/2022 2:10 PM EST [facility] Blood Venous blood specimen / Unknown Venipuncture / Unknown 03/28/2022 12:04 PM EST 03/28/2022 12:05 PM EST Narrative [facility] - 03/28/2022 2:10 PM EST HA1C Interpretive Data: Diagnosis of Diabetes: Diabetic > or = 6.5% Pre-diabetic 5.7 to 6.4% Non-diabetic < or = 5.6% Glycemic Targets for Type I and Type II Diabetics: Non- Adults <7.0% Adults <6.0% Children and Adolescents <7.5% Source: [place] [employer]. Standards of medical care in diabetes,2017. Diabetes Care.2017:40 (suppl 1):S1-S135. HbA1c assay performed by an ion-exchange chromatography method that is certified traceable to the DCCT. Rebekah TOTH LAB BLOOD ORDERABLES Final Resu lt [facility] [address] [place] [address] * Colonoscopy (05/31/2021 8:36 AM EDT) Anatomical [...] MD Proceduralist Mary Mares, RN Endo Nurse Cadnis Austin, MOUNA INTEGRATION SOFTWARE ENGINEER Kimberly Amaya, RN Endo Nurse Preprocedure A history [...] of bowel preparation was evaluated using the [place] Bowel Preparation Scale with scores of: right [...] Date Diagnosed Date Autogenerated Problem 08/24/2024 Insurance [facility] MEDICARE Advance Directives * Full Code (Latest Code Status on File) Date Activated Date Inactivated Comments 04/05/2022 11:15 AM 04/06/2022 2:46 AM Question Answer Comments Patient has decision-making capacity? Yes * Full Code Date Activated Date Inactivated Comments 10/02/2020 12:39 PM 10/19/2020 8:02 PM Question Answer Comments Patient has decision-making capacity? Yes Care Teams Communications Engineering Technician Relationship Specialty Start Date End Date Dru Giles MD PCP - General 11/21/21
--- OUTSIDE RECORDS SUMMARY | 2025-01-04 10:11 | XMS_ITS | Encounter Summary ---
Author Organization [facility] Address [address] [place] [address] Care Team Providers Care Chain Sales Consultant Name Role Phone Dru Giles MD Primary Care Provider [phone] Reason for Visit * Reason Onset Date Comments Med Refill 12/21/2024 Encounter Details Date Type Department Care Team (Late st Contact Info) Description 12/21/2024 Refill [facility] Medicine Specialties [address], [address] [place] [address] Jesus Tanner MD [address] [place] [address] Seronegative rheumatoid arthritis of multiple sites ([facility]) Social History Tobacco Use Types Packs/Day Years [...] file Travel History Travel Start Travel End [place] 12/15/2024 12/17/2024 documented as of this encounter Miscellaneous Notes * Progress Notes - Stacy Dong, PharmD - 12/21/2024 12:47 PM EDT 1 medication(s) has been approved per protocol. documented in this encounter Plan of Treatment Upcoming Encounters Date Type Department Care Team (Late st Contact Info) Description 01/05/2025 9:30 AM EDT Procedure Visit [facility] Interventional Pain Medicine [address] [place] [address] Eliseo Curiel MD [address] [facility] [address] [place] [address] 02/07/2025 10:20 AM EST Office Visit [facility] Medicine Specialties [address] [place] [address] Melyssa Encinas PA [address] [place] [address] 02/24/2025 3:00 PM EST Office Visit [facility] Medicine Specialties [address], [address] [place] [address] Rebekah Aragon PA [address] [place] [address] 04/13/2025 2:30 PM EST Office Visit [facility] Medicine Specialties [address], [address] [place] [address] Jesus Tanner MD [address] [place] [address] 07/12/2025 11:00 AM EDT Ovarian Cancer Screening [facility] [address], [address]rd [place] [address] documented as of this encounter Goals Goal Patient Goal Type Associated Problems Recent Progress Patient-Stated? Author Autogenerat ed Goal Care Plan Autogenerated Problem No Dana Leiva documented as of this encounter Visit Diagnoses Diagnosis Seronegative rheumatoid arthritis of multiple sites (CMS/[facility]) documented in this encounter Additional Health Concerns [...] documented as of this encounter Care Teams Chain Sales Consultant Relationship Specialty Start Date End Date Dru Giles MD PCP - General 11/21/21 documented as of this encounter
--- OUTSIDE RECORDS SUMMARY | 2025-01-04 10:12 | XMS_ITS | Encounter Summary ---
Author Organization [facility] Address [address] [place] [address] Care Team Providers Care Marine Electrician Apprentice Name Role Phone Dru Giles MD Primary Care Provider [phone] Reason for Referral * Medications - Authorized Specialty Diagnoses / Procedures Referred By Contac t Referred To Contact Diagnoses Seronegative rheumatoid arthritis of multiple sites ([facility]) Jesus Tanner MD [address] [place] [address] Phone: tel: fax: Referral ID Status Reason Start Date Expiration Date V isits Requested Visits Authorized [id number] Authorized 12/08/2024 03/09/2026 1 1 Encounter Details Date Type Department Care Team (Late st Contact Info) Description 12/29/2024 Orders Only [facility] Medicine Specialties [address], [address] [place] [address] Gibson Huffman, [place] [address] Seronegative rheumatoid arthritis of multiple sites ([facility]) (Primary Dx) Social History Tobacco Use Types [...] encounter Miscellaneous Notes * Progress Notes - Gibson Huffman, PharmD - 12/29/2024 1:39 PM EDT 1 medication(s) has been approved per protocol. documented in this encounter Plan of Treatment Upcoming Encounters Date Type Department Care Team (Late st Contact Info) Description 01/05/2025 9:30 AM EDT Procedure Visit [facility] Interventional Pain Medicine [address] [facility] [place] [address] Eliseo Curiel MD [address] [facility] [address] [place] [address] 02/07/2025 10:20 AM EST Office Visit [facility] Medicine Specialties [address], [address] [place] [address] Melyssa Encinas PA [address] [place] [address] 02/24/2025 3:00 PM EST Office Visit [facility] Medicine Specialties [address], [address] [place] [address] Rebekah Aragon PA [address] [place] [address] 04/13/2025 2:30 PM EST Office Visit [facility] Medicine [facility] [address], [address] [place] [address] Jesus Tanner MD [address] [place] [address] 07/12/2025 11:00 AM EDT Ovarian Cancer Screening [facility] [address], [address] [place] [address] documented as of this encounter Goals Goal Patient Goal Type Associated Problems Recent Progress Patient-Stated? Author Autogenerat ed Goal Care Plan Autogenerated Problem No Dana Leiva documented as of this encounter Visit Diagnoses Diagnosis Seronegative rheumatoid arthritis of multiple sites (CMS/[facility])- Primary documented in this encounter Additional [...] documented as of this encounter Care Teams Marine Electrician Apprentice Relationship Specialty Start Date End Date Dru Giles MD PCP - General 11/21/21 documented as of this encounter
--- OUTSIDE RECORDS SUMMARY | 2025-01-04 10:12 | XMS_ITS | Encounter Summary ---
Author Organization Healthcare Address [address] [place] [address] Care Team Providers Care Figure Model Name Role Phone Dru Giles MD Primary Care Provider [phone] Encounter Details Date Type Department Care Team (Latest Contact Info) Description 12/29/2024 Travel Social History Tobacco Use Types Packs/Day [...] file Travel History Travel Start Travel End [place] 12/15/2024 12/17/2024 documented as of this encounter [...] Erendira Luis documented as of this encounter Plan of Treatment Upcoming Encounters Date Type Department Care Team (Late st Contact Info) Description 01/05/2025 9:30 AM EDT Procedure Visit [facility] Interventional Pain Medicine [address] [place] [address] Eliseo Curiel MD [address] [facility] [address] [place] [address] 02/07/2025 10:20 AM EST Office Visit [facility] Medicine Specialties [address], [address] [place] [address] Melyssa Encinas PA [address] [place] [address] 02/24/2025 3:00 PM EST Office Visit [facility] [address] [place] [address] Rebekah Aragon PA [address] [place] [address] 04/13/2025 2:30 PM EST Office Visit [facility] Specialties [address], [address] [place] [address] Jesus Tanner MD [address] [place] [address] 07/12/2025 11:00 AM EDT Ovarian Cancer Screening [facility] Gy[facility] [address] [facility], 3rd [place] [address] documented as of this encounter Goals Goal [...] documented as of this encounter Care Teams Figure Model Relationship Specialty Start Date End Date Dru Giles MD PCP - General 11/21/21 documented as of this encounter
--- OUTSIDE RECORDS SUMMARY | 2025-01-04 10:12 | XMS_ITS | Encounter Summary ---
Author Organization Healthcare Address [address] [id number] Care Team Providers Care Rn Pediatric Icu Name Role Phone Dru Giles MD Primary Care Provider [phone] Reason for Visit * Reason Onset Date Comments q7 days Humira 12/29/2024 Encounter Details Date Type Department Care Team (Late st Contact Info) Description 12/29/2024 Telephone [facility] Medicine Specialties [address], [address] [place] [address] Gibson Huffman, [place] [address] q7 days Humira Social History Tobacco Use Types Packs/Day Years [...] Not difficult at all 12/29/2024 1:18 PM EDErendira Glaser documented as of this encounter Plan of Treatment Upcoming Encounters Date Type Department Care Team (Late st Contact Info) Description 01/05/2025 9:30 AM EDT Procedure Visit [facility] Interventional Pain Medicine [address] [facility] [place] [address] Eliseo Curiel MD [address] [facility] [address] [place] [address] 02/07/2025 10:20 AM EST Office Visit [facility] Medicine Specialties [address], [address] [place] [address] Melyssa Encinas PA [address] [place] [address] 02/24/2025 3:00 PM EST Office Visit [facility] Medicine Specialties [address] [place] [address] Rebekah Aragon PA [address] [place] [address] 04/13/2025 2:30 PM EST Office [facility] Specialties [address], [address] [place] [address] Jesus Tanner MD [address] [place] [address] 07/12/2025 11:00 AM EDT Ovarian Cancer Screening [facility] [address]rd [place] [address] documented as of this encounter Goals Goal [...] as of this encounter Care Teams Rn Pediatric Icu Relationship Specialty Start Date End Date Dru Giles MD PCP - General 11/21/21 documented as of this encounter
--- OUTSIDE RECORDS SUMMARY | 2025-01-04 10:12 | XMS_ITS | Encounter Summary ---
Author Organization Healthcare Address [address] [place] [id number] Care Team Providers Care Dispatcher Service Or Work Name Role Phone Dru Giles MD Primary Care Provider [phone] Encounter Details Date Type Department Care Team (Late st Contact Info) Description 12/29/2024 Telephone [facility] Medicine Specialties [address], [address] [place] [address] Ajit Jane, PharmD Social History Tobacco Use Types Packs/Day Years [...] file Travel History Travel Start Travel End [place] 12/15/2024 12/17/2024 documented as of this encounter [...] Description 01/05/2025 9:30 AM EDT Procedure Visit [facility] Interventional Pain Medicine [address] [place] [address] Eliseo Curiel MD [address] [place] [address] 02/07/2025 10:20 AM EST Office Visit [facility] Medicine Specialties [address], [address] [place] [address] Melyssa Encinas PA [address] [place] [address] 02/24/2025 3:00 PM EST Office Visit [facility] Specialties [address], [address] [place] [address] Rebekah Aragon PA [address] [place] [address] 04/13/2025 2:30 PM EST Office Visit [facility] Specialties [address], [address] [place] [address] Jesus Tanner MD [address] [place] [address] 07/12/2025 11:00 AM EDT Ovarian Cancer Screening [facility] [address] [facility], 3rd [place] [address] documented as of this encounter Goals Goal [...] documented as of this encounter Care Teams Dispatcher Service Or Work Relationship Specialty Start Date End Date Dru Giles MD PCP - General 11/21/21 documented as of this encounter
[2025-01-04 10:40] VITALS: PULSE 73; PULSE 74
[2025-01-04] MEDS: ALBUTEROL 0.083% 2.5 MG/3 ML NEB IH (10:40)
== END 2025-01-04 23:59 | disposition home or self-care (01) ==
LOC: RT 09:55
PROVIDERS: PCP Family Medicine; Visit Provider Internal Medicine Pulmonary Disease
DX: R06.02 Shortness of breath (principal); R06.09 Other forms of dyspnea
CPT/HCPCS: 94010; 94618; 94640

== ENCOUNTER 2025-01-06 09:00 | Outpatient (RCR) | payer MEDICARE, MEDICAID, SELFPAY ==
--- NOTE | 2024-12-20 11:58 | HMH.PTOPEV ---
PT Evaluation Rehab PT Outpatient Evaluation Start: 12/20/24 11:01 Freq: Status: Active Protocol: Document 12/20/24 11:01 TRAVON (Rec: 12/20/24 11:58 TRAVON [id number]) E-signed By Dany Garcia, PT Outpatient Therapy Subjective History Subjective History Pt is a 59 yof who is referred to [facility] outpatient PT with complaints of LBP that has been ongoing for approximately 2 years. However, the pt reports that she fell down 16 concrete stairs in September, which resulted in a concussion and broken nose. The pt reports that her lower back pain has been worsened since then. Pt reports that she was hospitalized for 1 night and then has received HH PT/OT up until approximately 3 weeks ago. Pt reports that she has been using a FWW for all mobility at this time. Pt reports that she used a cane prior to her hospitalization and would like to get back to that. Pt reports that she has a history of falling and feels very unsteady on her feet at all times. PMH: RA, Lupus, HTN, HLD New diagnosis of No cancer in past 12 months? Chief Complaint Pain,Weakness Symptom Type Ache Symptoms Relieved By Ice,Prescription Meds Symptoms Aggravated Standing,Bending/Stooping,Physical Activity,Walking, By Lifting Prior Functional None Limitations Current Functional Lifting,Standing,Squatting,Walking,Stairs Limitations Symptom Description Constant but Variable,Activity Dependent Level of pain today 5 (0-10) Pain scale - at its 2 best (0-10) Pain scale - at its 7 worst (0-10) Lumbopelvic Eval Posture Thoracic Spine Neutral Posture Standing Position Lumbar Spine Posture Flexed Standing Position Assistive device Assistive Devices Rolling / Wheeled Walker Gait Observation General Gait Pattern Wide Based Gait Observation Palapation tenderness bilateral lumbar spinal Yes: L4-L5 TTP 3/4 tenderness paraspinal Yes: L4-L5 TTP 3/4 tenderness Accessory Movement L4 bilateral L5 bilateral Range of Motion Lumbar Spine Active 30 Flexion Range of Motion (degrees) Lumbar Spine Active 0 Extension Range of Motion (degrees) Left Lumbar Spine 15 Lateral Flexion Active Range of Motion (degrees) Right Lumbar Spine 15 Lateral Flexion Active Range of Motion (degrees) Lumbar Spine ROM Soft Tissue Tightness Limitations Manual Muscle Test Bilateral Knee Extension 4- Good- Strength Grade Knee Flexion 4- Good- Strength Grade Hip Flexion Strength 3 Fair Grade Hip Abduction 2+ Poor+ Strength Grade Hip Extension 2+ Poor+ Strength Grade DTR Rt Patellar 2+ Lt Patellar 2+ Rt Gastroc/Soleus 2+ Lt Gastroc/Soleus 2+ Altered Sensation Bilateral Comment Intact to LT symmetrically and globally Special Tests Hip Scouring ( Positive Right Quadrant) Test Hip Devon (FRACISCO) Positive Right Test Crossed Straight Leg Negative Right Raise Test Sacroiliac Joint Positive Right Compression Test Sacroiliac Joint Positive Right Distraction Test Oswestry Index Section 1 Pain Intensity The pain comes and goes and is severe Section 2 Personal Care ( increase the pain, but I manage not to change my way of Washing,Dresing) doing it Section 3 Lifting Pain prevents me from lifting weights off the floor Section 4 Walking I cannot walk more than one mile wihtout increasing pain Section 5 Sitting Pain prevents me from sitting for more than 10 minutes Section 6 Standing I cannot stand more than 10 minutes without increasing pain Section 7 Sleeping I get pain in bed, but it does not prevent me from sleeping well Section 8 Social Life I hardly have any social life because of pain Section 9 Traveling I get no pain when traveling Section 10 Changing Degreee of My pain is neither getting better or worse Pain Score and Risk Level Oswestry Score 27 Oswestry Risk Level Severe Disability Miscellaneous Dx PT Eval Objective Objective 5xSTS: 26s Tandem Stance: Unable to initiate Outpatient Therapy Assessment Impairments Problems/ Palpation Tenderness,Impaired Range of Motion,Impaired Impairmments Strength,Impaired Endurance,Impaired Gait Pattern, Impaired Walking,Impaired Standing,Impaired Household Care,Impaired Stair Climbing,Impaired Squatting, Impaired Bending,Impaired Balance,Subjective C/O Pain, Impaired Self Care/Self Management Prognosis Rehab Potential Fair Comment w HEP compliance Clinical Impression Consistent with Yes Diagnosis Consistent with LBP with movement coordination Additional details: Pt also demonstrates impaired balance and impaired functional mobility. Skilled PT is indicated for this pt. PT Patient Goals PT Patient Goals PT Short Term 3 weeks: Patient Goals 1. Patient will report a 48 hour average pain of 5/10 on the numeric pain rating scale to demonstrate improvement in quality of life and increased functional capacity. 2. Patient will improve b/l hip abductor, hip flexor and hip extensor strength upon manual muscle testing to 3+/5 facilitate increased spinal stabilization and improved functional capabilities. 3. Patient will demonstrate a reduction in trigger point sensitivity to Grade 2 with manual palpation to improve comfort during activity and soft tissue mobility. 4. Patient will improve lumbar ROM by 10 degrees in all planes to demonstrate improved movement patterns with functional mobility and ADLs. 5. Patient will be able to stand for 15 minutes at one time to demonstrate independence with esthetician/owner, such as washing her dishes. 6. Pt will demonstrate HEP compliance by completing prescribed HEP 4-5x/week. 7. Pt will improve MARNI score to 24 to demonstrated improved functional mobility, overall improvement and improved quality of life. 8. Pt will improve 5xSTS time to 23s in order to demonstrate improved endurance, functional mobility and improved transfers. PT Fdc Patient 6 weeks: Goals 1. Patient will report a 48 hour average pain of 2-3/10 on the numeric pain rating scale to demonstrate improvement in quality of life and increased functional capacity. 2. Patient will improve b/l hip abductor, hip flexor and hip extensor strength upon manual muscle testing to 4/5 facilitate increased spinal stabilization and improved functional capabilities. 3. Patient will demonstrate a reduction in trigger point sensitivity to Grade 0-1 with manual palpation to improve comfort during activity and soft tissue mobility. 4. Patient will improve lumbar ROM by 15-20 degrees in all planes to demonstrate improved movement patterns with functional mobility and ADLs. 5. Patient will be able to stand/walk for 1 hour at one time to demonstrate improved community ambulation for activities, such as grocery shopping and other activities. 6. Pt will be able to lift a 10# weight from floor with proper lifting mechanics and less than 2/10 pain to demonstrate the ability to lift items, such as grocery bags, milk jugs, laundry basket, etc. 7. Pt will improve MARNI score to 20 to demonstrated improved functional mobility, overall improvement and improved quality of life. 8. Pt will improve 5xSTS time to 17s in order to demonstrate improved functional mobility, improved transfers and improved endurance. Outpatient Therapy Plan of Care Treatment Plan May Include Therapeutic Exercise Yes Including Home Exercise Program Manual Therapy Yes Techniques Neuromuscular Re- Yes education Therapeutic Yes Activities to Return to Previous Functional/Work Level Gait Training Yes ADL/Self Care Yes Education Thermal Modalities Yes Electrical Yes Stimulation Ultrasound/ Yes Phonophoresis Iontophoresis Yes Massage Yes Manual Lymphatic Yes Drainage Eval/Re-Eval Yes Frequency Times per week 2 Duration Number of Weeks 8 Addendums This patient is a No candidate for social or vocational rehab ? Patient/Guardian Yes verbally acknowledges understanding of treatment program and consents to further treatment? Patient/Guardian Yes verbally acknowledges understanding of diagnosis, prognosis and goals for treatment? Eval Complexity PT Charges 31947 - High Complexity Shoulder/Elbow Eval Shoulder Objective Measurements Elbow Objective Measurements PHYSICIAN CERTIFICATION: I certify the specified therapy services for Marizol Bishop are required, authorized, and reviewed every 30 days.
== END 2025-01-06 23:59 | disposition home or self-care (01) ==
LOC: PT 09:00
PROVIDERS: PCP Family Medicine; Visit Provider Nurse Practitioner
DX: M54.41 Lumbago with sciatica, right side (principal)
CPT/HCPCS: 97110; 97163; 97530

== ENCOUNTER 2025-01-17 10:00 | Outpatient (RCR) | payer MEDICARE, MEDICAID, SELFPAY | END 2025-01-17 23:59 | disposition home or self-care (01) | LOC: PT 10:00 | PROVIDERS: PCP Family Medicine; Visit Provider Nurse Practitioner | DX: M54.41 Lumbago with sciatica, right side (principal); M79.605 Pain in left leg | CPT/HCPCS: 97110; 97530 ==

== ENCOUNTER 2025-01-24 12:58 | Outpatient (CLI) | payer MEDICARE, MEDICAID, SELFPAY ==
--- OUTSIDE RECORDS SUMMARY | 2024-12-27 14:00 | XMS_ITS | Encounter Summary ---
Author Organization [facility] Address [address] [place] [address] Care Team Providers Care Weighbridge Operator Name Role Phone Dru Giles MD Primary Care Provider [phone] Reason for Referral * Imaging (Routine) - Pending Review Specialty Diagnoses / Procedures Referred By Contac t Referred To Contact Radiology Diagnoses Chronic bilateral low back pain without sciatica Procedures MR Lumbar Spine wo IV Contrast Eliseo Curiel MD [address] [address] Phone: tel: fax: Referral ID Status Reason Start Date Expiration Date V isits Requested Visits Authorized [id number] Pending Review 12/27/2024 06/28/2026 1 1 * Other Medical (Routine) - Closed Specialty Diagnoses / Procedures Referred By Contac t Referred To Contact Pain Medicine Diagnoses Sacroiliitis, not elsewhere classified (CMS/HCC) Procedures Injection - Sacroiliac Joint Eliseo Curiel MD [address] [facility] [address] [place] [phone] Phone: tel: fax: [facility] Interventional Pain Medicine [address] [place] [address] Phone: tel: fax: Referral ID Status Reason Start Date Expiration Date Visits Re quested Visits Authorized [id number] Closed 12/27/2024 06/28/2026 1 1 Reason for Visit * Reason Comments Consult * Consultation (Routine) - Closed Specialty Diagnoses / Procedures Referred By Contac t Referred To Contact Pain Medicine Diagnoses Low back pain, unspecified Dru Giles MD [address] [place] [address] Phone: tel: fax: [facility] Medicine [address] [place] [phone] Phone: tel: fax: Referral ID Status Reason Start Date Expiration Date V isits Requested Visits Authorized [id number] Closed Specialty Services Required 12/07/2024 06/08/2026 1 1 Encounter Details Date Type Department Care Team (Late st Contact Info) Description 12/27/2024 3:00 PM EDT Office Visit [facility] Interventional Pain Medicine [facility] [place] [phone] Eliseo Curiel MD [address] [facility] [address] [place] [address] Sacroiliitis, not elsewhere classified (CMS/HCC) (Primary Dx); Chronic bilateral low back pain without sciatica Social History Tobacco Use Types Packs/Day Years [...] Sign Reading Time Taken Comments Blood Pressure 115/67 12/27/2024 3:02 PM EDT Pulse 71 12/27/2024 3:02 PM EDT Temperature - - Respiratory Rate 18 12/27/2024 3:02 PM EDT Oxygen Saturation 97% 12/27/2024 3:02 PM EDT Inhaled Oxygen Concentration - - Weight 129 kg (285 lb) 12/27/2024 3:02 PM EDT Height 170.2 cm (5' 7 ) 12/27/2024 3:02 PM EDT Body Mass Index 44.64 12/27/2024 3:02 PM EDT documented in this encounter Miscellaneous Notes * Progress Notes - Eliseo Curiel MD - 12/27/2024 3:00 PM EDT Images from the original note were not included. Interventional Pain Medicine New Patient Note Subjective: Referring Physician: Dru Giles MD [address] [place] [address] Record Review: I personally reviewed referral, rheumatology records Chief Complaint: No chief complaint on file. History of Present Illness: Marizol Bsihop is a 59 y.o. female with a past medical history of asthma, BROWN on CPAP, mixed anxiety and depressed mood, major depressive disorder, generalized anxiety disorder, lupus, allergic rhinitis, inflammatory polyarthritis, CARRASCO Cirrhosis . Site: Low back Onset: Fall down a flight of stairs, September 2024 Severity: 09/16 Descriptors: hurts Aggravating Factors: sitting, walking, standing RelievingFactors: nothing Associated Symptoms: subjective weakness in the bilateral legs Functional Goals of Treatment: pain relief Current Medication: Current Pain Medications Adalimumab (Humira, 2 Pen,) 40 MG/0.4ML Auto-injector Kit Inject 1 each under the skin every 14 days. traMADol (Ultram) 50 MG tablet at night if needed. Previous Medication: Cyclobenzaprine - no relief Tylenol - no relief Ibuprofen - no relief Previous Conservation Treatment: heat ice medication trials modified activities rest PT, [facility], started December 2024 Previous Interventions/Consults: None Other Medical History reports that she has never smoked. She has never been exposed to tobacco smoke. She has never used smokeless tobacco. Review of Systems: CONSTITUTIONAL: denies fevers, chills HEENT: denies swallowing difficulties, sore throat CARDIOVASCULAR: denies chest pain, palpitations, syncope RESPIRATORY: denies shortness of breath, cough, wheezing GI: denies change in bowel habits, nausea, vomiting : denies change in bladder function, frequency, dysuria SKIN: denies rash, skin changes MSK: Per HPI NEURO: Per HPI PSYCH: Per HPI General Physical Exam: Constitutional Oriented to person, place, and time. Appears well-developed and well-nourished Head Normocephalic and atraumatic. Eyes Pupils are equal, round, and reactive to light. Neck Neck supple Cardiovascular Minimal to no peripheral edema, intact distal pulses Pulmonary/Chest Effort normal, no shortness of breath noted Neurological Alert and oriented to person, place, and time Skin Skin is warm and dry Psychiatric Normal mood and affect, behavior and judgment Neurologic & Musculoskeletal Exam Lumbar Region Exam Right (+/-) Left (+/-) Lumbar Musculature Tender w/ palpation + + Lumbar Facet Pain w/ extension + + Lower Extremity SLR - - Lower Extremity Crossed SLR - - Sensation Right Left L2: Proximal Anterior Thigh Normal Normal L3: Mid Anterior Thigh Normal Normal L4: Medial leg/foot, great toe (Saphenous n.) Normal Normal L5: Dorsum of mid foot Normal Normal S1: Lateral leg/foot, little toe, back of leg (Sural n.) Normal Normal Motor Strength Right Left L2: 5/5 5/5 L3: 5/5 5/5 L4: 5/5 5/5 L5: 5/5 5/5 S1: 5/5 5/5 Sacroiliac Joint Exam Right Left Erin's Finger (PSIS) + + FRACISCO + + Gaenslen's + + Compression + + Distraction + + Imaging: Images of the following studies have been personally reviewed and my independent interpretation reveals as written: Assessment & Plan: Marizol Bishop is a 59 y.o. female #Bilateral Sacroiliac Joint Pain, Chronic Worsening -Patient has >3 provocative exam maneuvers which include + erin's finger, FRACISCO, thigh thrust,compression, distraction, Gaenslen's -Will schedule bilateral SI joint injection -If significant short term relief >75% on two occasions but no sustained relief consider SI joint ablation. Other options included posterior stabilization/fusion or lateral percutaneous fixation/fusion. #CARRASCO Cirrhosis - Given history, prior to any spinal procedures patient will need to have an INR </= 1.2 and a platelet count of > 100k Lab Results Component Value Date PLT 77 (L) 11/04/2024 Lab Results Component Value Date INR 1.5 (H) 11/04/2024 INR 1.4 (H) 08/23/2024 INR 1.4 (H) 02/19/2024 #Axial Low Back Pain, Chronic Worsening #Lumbar Spondylosis #Facetogenic pain - will order MRI of the L spine fur further eval documented in this encounter Plan of Treatment Upcoming Encounters Date Type Department Care Team (Late st Contact Info) Description 02/07/2025 10:20 AM EST Office Visit [facility] Medicine Specialties [address] [place] [address] Melyssa Encinas PA [address] [place] [address] 02/08/2025 10:20 AM EST Office Visit [facility] Interventional Pain Medicine [address] [facility] [employer] [place] [phone] Eliseo Curiel MD [address] [facility] [address] [place] [address] 02/24/2025 3:00 PM EST Office Visit [facility] Medicine Specialties [address] [place] [address] Rebekah Aragon PA [address] [place] [address] 04/13/2025 2:30 PM EST Office Visit [facility] [address] [place] [address] Jesus aTnner MD [address] [place] [address] 07/12/2025 11:00 AM EDT Ovarian Cancer Screening [facility] [address] [place] [address] Scheduled Orders Name Type Priority Associated Diagnoses Orde r Schedule MR Lumbar Spine wo IV Contrast Imaging Routine Chronic bilateral low back pain without sciatica Expected: 12/27/2024 (Approximate), Expires: 06/30/2026 documented as of this encounter Goals Goal Patient Goal Type Associated Problems Recent Progress Patient-Stated? Author Autogenerat ed Goal Care Plan Autogenerated Problem No Dana Leiva documented as of this encounter Results * [place] INJECTION,SACROILIAC JOINT (01/05/2025 9:30 AM EDT) Narrative Eliseo Curiel MD - 01/05/2025 9:30 AM EDT Eliseo Curiel MD 01/05/2025 11:11 AM Injection - Sacroiliac Joint Performed by: Salazar Garcia DO Authorized by: Eliseo Curiel MD us Eliseo Curiel MD IN CLINIC/BEDSIDE ORDER PATRICIA Final Result documented in this encounter Visit Diagnoses Diagnosis Sacroiliitis, not elsewhere classified (CMS/HCC)- Primary Sacroiliitis, not elsewhere classified Chronic bilateral low back pain without sciatica Sacroiliitis, not elsewhere classified (CMS/HCC) Sacroiliitis, not elsewhere classified documented in this encounter Additional Health Concerns Active Problems Noted Date Diagnosed Date Autogenerated Problem 08/24/2024 Assessment Noted Time PHQ-9 Depression Total Score: 0 11/16/19 25 10:39 AM EDT A fall risk assessment has been complete d for the patient 12/27/2024 3:02 PM EDT A Body Mass Index follow-up plan has been documented for the patient 12/27/2024 3:34 PM EDT documented as of this encounter Care Teams Weighbridge Operator Relationship Specialty Start Date End Date Dru Giles MD PCP - General 11/21/21 documented as of this encounter
--- OUTSIDE RECORDS SUMMARY | 2024-12-29 06:11 | XMS_ITS | Encounter Summary ---
Author Organization [facility] Address [address] [place] [address] Care Team Providers Care Shade Matcher Name Role Phone Dru Giles MD Primary Care Provider [phone] Reason for Referral * Imaging (Routine) - Closed Specialty Diagnoses / Procedures Referred By Giana lo Referred To Contact Radiology Diagnoses On methotrexate therapy Cirrhosis of liver without ascites, unspecified hepatic cirrhosis type Procedures US Liver Screen Rebekah Aragon PA [address] [facility] [address] [place] [address] Phone: tel: fax: Referral ID Status Reason Start Date Expiration Date Visits Re quested Visits Authorized [id number] Closed 11/04/2024 05/06/2026 1 1 Reason for Visit * Imaging (Routine) - Closed Specialty Diagnoses / Procedures Referred By Giana lo Referred To Contact Radiology Diagnoses On methotrexate therapy Cirrhosis of liver without ascites, unspecified hepatic cirrhosis type Procedures US Liver Screen Rebekah Aragon PA [address] [facility] [address] [place] [address] Phone: tel: fax: Referral ID Status Reason Start Date Expiration Date Visits Re quested Visits Authorized [id number] Closed 11/04/2024 05/06/2026 1 1 Encounter Details Date Type Department Care Team (Latest Contact Info) Description 12/29/2024 7:11 AM EDT - 12/29/2024 11:59 PM EDT Hospital Encounter [facility] Rad[facility] [address] [place] [address] On methotrexate therapy; Cirrhosis of liver without ascites, unspecified hepatic cirrhosis type Discharge Disposition: Home or Self Care Social History Tobacco Use Types Packs/Day Years Used Date Smoking Tobacco: Never Passive Smoke Exposure: Never Smokeless Tobacco: Never Alcohol Use Standard Drinks/Week Comments Not Currently 0 (1 standard drink = 0.6 oz pur e alcohol) PHQ-2 Answer Date Recorded Patient Health Questionnaire-2 Score 0 12/29/2024 PHQ-9 Answer Date Recorded Patient Health Questionnaire-9 Score 0 12/29/2024 AUDIT-C Answer Date Recorded Q1: How often [...] pleasure in doing things Not at all 12/29/2024 1:18 PM EDT Erendira Pollard Feeling down, depressed, or hopeless Not at all 12/29/2024 1:18 PM EDT Erendira Pollard Patient Health Questionnaire -2 Score 0 12/29/2024 1:18 PM EDT Erendira Pollard * Question Answer Date of Assessment Author Trouble falling or staying a sleep, or sleeping too much Not at all 12/29/2024 1:18 PM EDT Erendira Pollard Feeling tired or having santos le energy Not at all 12/29/2024 1:18 PM EDT Erendira Pollard Poor appetite or overeating Not at all 12/29/2024 1: 18 PM EDT Erendira Pollard Feeling bad about yourself - or that you are a failure or have let yourself or your family down Not at all 12/29/2024 1:18 PM EDT Erendira Pollard Trouble concentrating on thi ngs, such as reading the newspaper or watching television Not at all 12/29/2024 1:18 PM EDT Erendira Pollard Moving or speaking so slowly that other people could have noticed? Or the opposite - being so fidgety or restless that you have been moving around a lot more than usual. Not at all 12/29/2024 1:18 PM EDT Erendira Alicea Thoughts that you would be b luis enrique off or hurting yourself in some way Not at all 12/29/2024 1:18 PM EDT Erendira Pollard Patient Health Questionnaire -9 Score 0 12/29/2024 1:18 PM EDT Erendira Pollard * How difficult have these problems made it for you to do your work, take care of things at home, or get along with other people? 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 4 each 3 12/29/2024 azelastine (Astelin) 0.1 % nasal spray 09/20/2022 EPINEPHrine (AUVI-Q) 0.15 mg/0.15 mL IJ solution auto-injector injection Inject 0.0225 mL (0.0225 mg) into the muscle if needed for anaphylaxis. ergocalciferol 1.25 MG (77855 UT) capsule Take 1 capsule by mouth 1 time per week. 10/01/2020 ferrous sulfate 325 (65 Fe) MG EC tabletIndications :Anemia, unspecified type TAKE 1 TABLET BY MOUTH 1 (ONE) TIME EACH DAY WITH BREAKFAST. DO NOT CRUSH, CHEW, OR SPLIT. 90 tablet 2 08/20/2021 fluticasone (Flonase) 50 MCG/ACT nasal spray 1 spray daily. 01/27/2022 Glucagon, rDNA, (Glucagon Emergency) 1 MG kit 01/09/2023 Horizant 600 MG tablet controlled-releas e ER tablet 04/02/2023 ketotifen (Zaditor) 0.035 % ophthalmic solution 02/18/2023 linaCLOtide (Linzess) 145 MCG capsuleIndication s:Chronic constipation Take 1 capsule by mouth daily before breakfast. 90 capsule 1 11/15/2024 meclizine (Antivert) 25 MG tablet 1 tablet. 12/06/2022 methocarbamol (Robaxin) 500 MG tablet TAKE ONE TABLET BY MOUTH EVERY 8 HOURS MAY CAUSE DROWSINESS 12/13/2024 metoclopramide (Reglan) 5 MG tablet TAKE ONE TABLET BY MOUTH EVERY DAY FOR gerd 11/22/2024 montelukast (Singulair) 10 MG tablet Take 1 tablet by mouth nightly. 09/11/2020 Multiple Vitamins-Minerals (EQ One Daily Spotplex) tablet Take 1 tablet by mouth daily. Nystop 119466 UNIT/GM powder apply topically to the affected area(s) three times daily 10/01/2024 ondansetron (Zofran) 4 MG tablet 1 tablet (4 mg). 04/03/2023 pantoprazole (Protonix) 40 MG EC tabletIndications :Gastroesophageal reflux disease, unspecified whether esophagitis present Take 1 tablet by mouth daily before breakfast. Do not crush, chew, or split. 90 tablet 3 11/15/2024 ProAir HFA 108 (90 Base) MCG/ACT inhaler if needed. 09/26/2021 rifAXIMin (Xifaxan) 550 MG tabletIndications :Decompensated cirrhosis (CMS/HCC) Take 1 tablet by mouth 2 times a day. 60 tablet 11 10/07/2024 traMADol (Ultram) 50 MG tablet at night if needed. 08/27/2021 triamcinolone (Kenalog) 0.1 % cream apply a SMALL AMOUNT topically TO THE affected area(s) TWICE DAILY FOR ITCHING OR RASH avoid USE ON face, groin, OR arm pits 08/05/2024 Zegalogue 0.6 MG/0.6ML solution auto-injector USE DIRECTED NEEDED with epipen FOR anaphylactic reactions 06/07/2024 lactulose (Chronulac) 10 GM/15ML oral solution Take 15 mL by mouth 3 times a day. Can increase or decrease volume or frequency of dosing to have 1 BM daily or every other day 1350 mL 2 10/07/2024 Breo Ellipta 200-25 MCG/ACT aerosol powder 1 (one) time each day. 01/27/2022 doxycycline (Vibra-Tabs) 100 MG tablet Take 1 tablet by mouth 2 times a day. 12/23/2024 valsartan (Diovan) 320 MG tablet Take 1 tablet by mouth every morning. Down to 160 09/08/2020 documented as of this encounter Plan of Treatment Upcoming Encounters Date Type Department Care Team (Late st Contact Info) Description 02/07/2025 10:20 AM EST Office Visit [facility] Medicine Specialties [address] [place] [address] Melyssa Encinas PA [address] [place] [address] 02/08/2025 10:20 AM EST Office Visit [facility] Interventional Pain Medicine [address] [facility] [place] [address] Eliseo Curiel MD [address] [facility] [address] [place] [address] 02/24/2025 3:00 PM EST Office Visit [facility] Medicine Specialties [address] [place] [address] Rebekah Aragon PA [address] [place] [address] 04/13/2025 2:30 PM EST Office Visit [facility] Medicine Specialties [address], [address] [place] [address] Jesus Tanner MD [address] [place] [address] 07/12/2025 11:00 AM EDT Ovarian Cancer Screening [facility] [address] [place] [address] documented as of this encounter Goals Goal Patient Goal Type Associated Problems Recent Progress Patient-Stated? Author Autogenerat ed Goal Care Plan Autogenerated Problem No Hernandez Dana White documented as of this encounter Procedures Procedure Name Priority Date/Time Associated Diagnosis Comments US ABDOMEN DOPPLER COMPLETE Routine 12/29/2024 7:45 AM EDT Cirrhosis of liver without ascites, unspecified hepatic cirrhosis type US LIVER SCREEN Routine 12/29/2024 7:45 AM EDT On methotrexate therapy Cirrhosis of liver without ascites, unspecified hepatic cirrhosis type documented in this encounter Results * US Abdomen Doppler Complete (12/29/2024 7:45 AM EDT) Anatomical Region Laterality Modality Abdomen Ultrasound Impressions 12/29/2024 8:30 AM EDT 1. Changes of chronic parenchymal liver disease. No obvious sonographically detectable lesions. 2. Patent hepatic vasculature with appropriate flow directionality. CRITICAL RESULT: No. COMMUNICATION: Per this written report. Drafted by Monique Wilson MD on 12/29/2024 8:29 AM Final report signed by Monique Wilson MD on 12/29/2024 8:30 AM Narrative 12/29/2024 8:30 AM EDT CLINICAL INDICATION: Cirrhosis, new development of thrombocytopenia TECHNIQUE: Multiplanar limited evaluation of the hepatic vasculature was undertaken, including the acquisition of Color and Spectral Doppler images. Multiplanar static and cine mustafa scale ultrasound images of the abdomen were also obtained. COMPARISON: None. FINDINGS: Grayscale: Liver: The liver is coarse and heterogenous consistent with parenchymal disease. This limits the visualization of focal lesions though no focal lesions are detected. Portal Vein: There is antegrade flow within the main portal vein. Gallbladder: The gallbladder is absent Common Duct: 6 mm Spleen: The spleen is enlarged measuring 15.2 cm. Free Fluid: There is no ascites Other: N/A Duplex: Portal Vein: There is antegrade flow within the main portal vein with a velocity of 24 cm/sec. Hepatic Artery: The main hepatic artery is patent with normal direction of flow. The resistive index is 0.71. Peak systolic velocity is 108 cm/sec. There is no evidence of obvious stenosis. Hepatic Veins: The hepatic veins are patent at the IVC confluence with normal direction of flow. Procedure Note Monique Wilson MD - 12/29/2024 CLINICAL INDICATION: Cirrhosis, new development of thrombocytopenia TECHNIQUE: Multiplanar limited evaluation of the hepatic vasculature was undertaken,including the acquisition of Color and Spectral Doppler images.Multiplanar static and cine mustafa scale ultrasound images of the abdomenwere also obtained. COMPARISON: None. FINDINGS: Grayscale: Liver: The liver is coarse and heterogenous consistent with parenchymaldisease. This limits the visualization of focal lesions though no focallesions are detected. Portal Vein: There is antegrade flow within the main portal vein. Gallbladder: The gallbladder is absent Common Duct: 6 mm Spleen: The spleen is enlarged measuring 15.2 cm. Free Fluid: There is no ascites Other: N/A Duplex: Portal Vein: There is antegrade flow within the main portal vein with avelocity of 24 cm/sec. Hepatic Artery: The main hepatic artery is patent with normal direction offlow. The resistive index is 0.71. Peak systolic velocity is 108 cm/sec.There is no evidence of obvious stenosis. Hepatic Veins: The hepatic veins are patent at the IVC confluence withnormal direction of flow. IMPRESSION: 1. Changes of chronic parenchymal liver disease. No obvioussonographically detectable lesions. 2. Patent hepatic vasculature with appropriate flow directionality. CRITICAL RESULT: No. COMMUNICATION: Per this written report. Drafted by Monique Wilson MD on 12/29/2024 8:29 AM Final report signed by Monique Wilson MD on 12/29/2024 8:30 AM us Rebekah TOTH IMAgusto US PROCEDURES Final Result * US Liver Screen (12/29/2024 7:45 AM EDT) Anatomical Region Laterality Modality Abdomen, Liver Ultrasound Impressions 12/29/2024 8:30 AM EDT 1. Changes of chronic parenchymal liver disease. No obvious sonographically detectable lesions. 2. Patent hepatic vasculature with appropriate flow directionality. CRITICAL RESULT: No. COMMUNICATION: Per this written report. Drafted by Monique Wilson MD on 12/29/2024 8:29 AM Final report signed by Monique Wilson MD on 12/29/2024 8:30 AM Narrative 12/29/2024 8:30 AM EDT CLINICAL INDICATION: Cirrhosis, new development of thrombocytopenia TECHNIQUE: Multiplanar limited evaluation of the hepatic vasculature was undertaken, including the acquisition of Color and Spectral Doppler images. Multiplanar static and cine mustafa scale ultrasound images of the abdomen were also obtained. COMPARISON: None. FINDINGS: Grayscale: Liver: The liver is coarse and heterogenous consistent with parenchymal disease. This limits the visualization of focal lesions though no focal lesions are detected. Portal Vein: There is antegrade flow within the main portal vein. Gallbladder: The gallbladder is absent Common Duct: 6 mm Spleen: The spleen is enlarged measuring 15.2 cm. Free Fluid: There is no ascites Other: N/A Duplex: Portal Vein: There is antegrade flow within the main portal vein with a velocity of 24 cm/sec. Hepatic Artery: The main hepatic artery is patent with normal direction of flow. The resistive index is 0.71. Peak systolic velocity is 108 cm/sec. There is no evidence of obvious stenosis. Hepatic Veins: The hepatic veins are patent at the IVC confluence with normal direction of flow. Procedure Note Monique Wilson MD - 12/29/2024 CLINICAL INDICATION: Cirrhosis, new development of thrombocytopenia TECHNIQUE: Multiplanar limited evaluation of the hepatic vasculature was undertaken,including the acquisition of Color and Spectral Doppler images.Multiplanar static and cine mustafa scale ultrasound images of the abdomenwere also obtained. COMPARISON: None. FINDINGS: Grayscale: Liver: The liver is coarse and heterogenous consistent with parenchymaldisease. This limits the visualization of focal lesions though no focallesions are detected. Portal Vein: There is antegrade flow within the main portal vein. Gallbladder: The gallbladder is absent Common Duct: 6 mm Spleen: The spleen is enlarged measuring 15.2 cm. Free Fluid: There is no ascites Other: N/A Duplex: Portal Vein: There is antegrade flow within the main portal vein with avelocity of 24 cm/sec. Hepatic Artery: The main hepatic artery is patent with normal direction offlow. The resistive index is 0.71. Peak systolic velocity is 108 cm/sec.There is no evidence of obvious stenosis. Hepatic Veins: The hepatic veins are patent at the IVC confluence withnormal direction of flow. IMPRESSION: 1. Changes of chronic parenchymal liver disease. No obvioussonographically detectable lesions. 2. Patent hepatic vasculature with appropriate flow directionality. CRITICAL RESULT: No. COMMUNICATION: Per this written report. Drafted by Monique Wilson MD on 12/29/2024 8:29 AM Final report signed by Monique Wilson MD on 12/29/2024 8:30 AM Rebekah TOTH IMG US PROCEDURES Final Result documented in this encounter Visit Diagnoses Diagnosis On methotrexate therapy Cirrhosis of liver without ascites, unspecified hepatic cirrhosis type documented in this encounter Additional Health Concerns Active Problems Noted Date Diagnosed Date Autogenerated Problem 08/24/2024 Assessment Noted Time PHQ-9 Depression Total Score: 0 12/30/19 25 1:18 PM EDT A fall risk assessment has been complete d for the patient 12/29/2024 1:18 PM EDT A Body Mass Index follow-up plan has been documented for the patient 12/29/2024 1:42 PM EDT documented as of this encounter Care Teams Shade Matcher Relationship Specialty Start Date End Date Dru Giles MD PCP - General 11/21/21 documented as of this encounter
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
--- OUTSIDE RECORDS SUMMARY | 2025-01-05 08:30 | XMS_ITS | Encounter Summary ---
Author Organization [facility] Address [address] [place] [address] Care Team Providers Care Federal Mediation Commissioner Name Role Phone Dru Giles MD Primary Care Provider [phone] Reason for Visit * Reason Comments Injections * Other Medical (Routine) - Closed Specialty Diagnoses / Procedures Referred By Contac t Referred To Contact Pain Medicine Diagnoses Sacroiliitis, not elsewhere classified (CMS/HCC) Procedures Injection - Sacroiliac Joint Eliseo Curiel MD [address] [facility] Pt [facility] [address] [place] [address] Phone: tel: fax: [facility] Interventional Pain Medicine [address] [place] [address] Phone: tel: fax: Referral ID Status Reason Start Date Expiration Date Visits Re quested Visits Authorized [id number] Closed 12/27/2024 06/28/2026 1 1 Encounter Details Date Type Department Care Team (Late st Contact Info) Description 01/05/2025 9:30 AM EDT Procedure Visit [facility] Interventional Pain Medicine [address] [place] [address] Eliseo Curiel MD [address] [facility] [address] [place], [place] [address] Sacroiliitis, not elsewhere classified (CMS/HCC) Social History Tobacco Use Types Packs/Day [...] Sign Reading Time Taken Comments Blood Pressure 133/82 01/05/2025 10:16 AM EDT Pulse 74 01/05/2025 10:16 AM EDT Temperature 36.3 C (97.4 F) 01/05/2025 9:53 AM EDT Respiratory Rate 20 01/05/2025 10:16 AM EDT Oxygen Saturation 96% 01/05/2025 10:16 AM EDT Inhaled Oxygen Concentration - - Weight 127 kg (279 lb) 01/05/2025 9:53 AM EDT Height 170.2 cm (5' 7 ) 01/05/2025 9:53 AM EDT Body Mass Index 43.7 01/05/2025 9:53 AM EDT documented in this encounter Miscellaneous Notes * Clinician Note - Amira Flor RN - 01/05/2025 9:30 AM EDTAssociated Order(s): Interventional Pain Nurse Procedure Protocol Interventional Pain Nurse Procedure Protocol Documentation: Indications: Documentation supporting primary procedure completed by : Eliseo Curiel MD See the provider procedure note for performed procedure details and findings. Pre-Procedure Checklist: Currently taking anticoagulant(s)?: no Grinder present?: yes Additional Pre-Procedure Comments: Elaine Titus timeout was called immediately prior to the procedure, in accordance with [facility] policy @ 1001 Procedure details: Procedure start time:: 01/05/2025 10:10 AM Procedure end time:: 01/05/2025 10:15 AM Guidance used (if applicable): fluoro Total amount of contrast dye (mGy): 11.71 Fluoro time: 27.2 seconds Moderate conscious sedation used?: no Post-procedure details: Orientation at discharge?: Normal to time, normal to place, normal to person, normal to situation and completely oriented Mood and Affect normal?: yes Discharged to: home Mode of exit: Walked (@ 9364) Attendance: Constant attendance by certified staff until patient recovered Recovery: Patient returned to pre-procedure baseline Estimated blood loss (see I/O flowsheets): no Specimens recovered: None Patient is stable for discharge or admission: yes Procedure completion: Tolerated well, no immediate complications * Progress Notes - Salazar Garcia DO - 01/05/2025 9:30 AM EDTAssociated Order(s): Injection - Sacroiliac Joint Pre-Procedure Diagnose(s): Sacroiliitis, not elsewhere classified (CMS/HCC) Post-Procedure Diagnose(s): Sacroiliitis, not elsewhere classified (CMS/HCC) Patient ID: Marizol Bishop is a 59 y.o. female. Encounter Diagnosis Name Primary? Sacroiliitis, not elsewhere classified (CMS/HCC) Injection - Sacroiliac Joint Performed by: Salazar Garcia DO Authorized by: Eliseo Curiel MD Patient seen and evaluated prior to their procedure.There is nothing in the patient's overall condition that would affect the planned course of the patient's treatment today that requires additional interventions to reduce risk to the patient. Procedure(s): Bilateral Sacroiliac Joint Injection Anesthesia Type: local only Complications: none Follow-up Plan: Clinic follow up as scheduled Procedure: This patient was seen earlier for a comprehensive evaluation of their painful condition.After discussing treatment options, the patient elected to proceed with a Sacroiliac joint injection. Written, informed consent was obtained before the start of the procedure. The patient's history of present illness, past medical history (including current medications and allergies), and physical examination were reviewed with the patient immediately before the procedure, and it was confirmed directly with the patient that they desired to proceed. The patient ambulated to the operating room and was placed in the prone position with pressure points padded. A time out was performed, confirming the patient's identification, allergy status, the side(s) of the procedure, and the procedure(s) to be performed. All operators were wearing hats, masksand sterile gloves. The patient underwent ChloraPrep skin prep followed by sterile drape. The needle insertion site for the sacroiliac joint injection was identified by fluoroscopy and marked. The patient received: 2% lidocaine for local anesthesia. Under fluoroscopic guidance using a coaxial approach, a 22 gauge 3.5 inch needle was advanced until the needle tip was in the sacroiliac joint. Appropriate positioning of the needle tip was confirmed by fluoroscopy in the lateral view. After negative aspiration, under live fluoroscopy in the lateral, 0.5 mL of contrast solution was injected. This demonstrated intra-articular spread without evidence of intravascular flow. After negative aspiration, 40 mg of DepoMedrol with 2 mL of 2% lidocaine was injected. The stylettewas replaced and the needle was removed. Sterile bandage was applied over the puncture site. Following completion of the procedure, the patient was transported to the PACU, then was later discharged in stable condition. Patient Reports 100 % pain relief following the procedure. Cosigned by Eliseo Curiel MD at 01/05/2025 11:11 AM EDT Associated attestation - Eliseo Curiel MD - 01/05/2025 11:11 AM EDT I was present for the entirety of the procedure(s). documented in this encounter Plan of Treatment Upcoming Encounters Date Type Department Care Team (Late st Contact Info) Description 02/07/2025 10:20 AM EST Office Visit [facility] Medicine Specialties [address], [address] [place] [address] Melyssa Encinas PA [address] [place] [address] 02/08/2025 10:20 AM EST Office Visit [facility] Interventional Pain Medicine [address] [place] [address] Eliseo Curiel MD [address] [place] [address] 02/24/2025 3:00 PM EST Office Visit [facility] Medicine Specialties [address], [address] [place] [address] Rebekah Aragon PA [address] [facility] [address] [place] [address] 04/13/2025 2:30 PM EST Office Visit [facility] Medicine [facility] [address], [address] [place] [address] Jesus Tanner MD [address] [place] [address] 07/12/2025 11:00 AM EDT Ovarian Cancer Screening [facility] Gynecology [address] [facility], 3rd [place] [address] documented as of this encounter Goals Goal Patient Goal Type Associated Problems Recent Progress Patient-Stated? Author Autogenerat ed Goal Care Plan Autogenerated Problem No Dana Leiva documented as of this encounter Procedures Procedure Name Priority Date/Time Associated Diagnosis Comments IVP NURSE PROCEDURE PROTOCOL Routine 01/05/2025 9:30 AM EDT RI INJECTION,SACROILIA C JOINT Routine 01/05/2025 9:30 AM EDT Sacroiliitis, not elsewhere classified (CMS/HCC) documented in this encounter Results * Interventional Pain Nurse Procedure Protocol (01/05/2025 9:30 AM EDT) Narrative Amira Flor RN - 01/05/2025 9:30 AM EDT Amira Flor RN 01/05/2025 11:11 AM Interventional Pain Nurse Procedure Protocol Documentation: Indications: Documentation supporting primary procedure completed by : Eliseo Curiel MD See the provider procedure note for performed procedure details and findings. Pre-Procedure Checklist: Currently taking anticoagulant(s)?: no Grinder present?: yes Additional Pre-Procedure Comments: Elaine SI A timeout was called immediately prior to the procedure, in accordance with [facility] policy @ 1002 Procedure details: Procedure start time:: 01/05/2025 10:10 AM Procedure end time:: 01/05/2025 10:15 AM Guidance used (if applicable): fluoro Total amount of contrast dye (mGy): 11.71 Fluoro time: 27.2 seconds Moderate conscious sedation used?: no Post-procedure details: Orientation at discharge?: Normal to time, normal to place, normal to person, normal to situation and completely oriented Mood and Affect normal?: yes Discharged to: home Mode of exit: Walked (@ 1025) Attendance: Constant attendance by certified staff until patient recovered Recovery: Patient returned to pre-procedure baseline Estimated blood loss (see I/O flowsheets): no Specimens recovered: None Patient is stable for discharge or admission: yes Procedure completion: Tolerated well, no immediate complications us Eliseo Curiel MD IN CLINIC/BEDSIDE ORDER PATRICIA Final Result * RI INJECTION,SACROILIAC JOINT (01/05/2025 9:30 AM EDT) Narrative Eliseo Curiel MD - 01/05/2025 9:30 AM EDT Eliseo Curiel MD 01/05/2025 11:11 AM Injection - Sacroiliac Joint Performed by: Salazar Garcia DO Authorized by: Eliseo Curiel MD us Eliseo Curiel MD IN CLINIC/BEDSIDE ORDER PATRICIA Final Result documented in this encounter Visit Diagnoses Diagnosis Sacroiliitis, not elsewhere classified (CMS/HCC) Sacroiliitis, not elsewhere classified documented in this encounter Administered Medications Inactive Administered Medications - up to 3 most recent administrations Medication Order MAR Action Action Date Dose Rate Site bupivacaine PF (Marcaine) 0.25 % injection 25 mg 25 mg (10 mL), Injection, Once, 1 dose, On Fri01/05/25 at 1100, RoutineIndications:Sacroiliit is, not elsewhere classified ([facility]) Given by Other 01/05/2025 10:10 AM EDT 25 mg iohexol (OMNIPaque) 300 MG/ML injection 10 mL 10 mL, Other, Once in imaging, 1 dose, Starting on Fri01/05/25 at 1009, Until Fri01/05/25 at 1010, RoutineIndications:Sacroiliit is, not elsewhere classified (CMS/[facility]) Given by Other 01/05/2025 10:10 AM EDT 10 mL lidocaine PF (Xylocaine) 1 % injection 300 mg 300 mg (30 mL), Injection, Once, 1 dose, On Fri01/05/25 at 1100, RoutineIndications:Sacroiliit is, not elsewhere classified ([facility]/HCC) Given by Other 01/05/2025 10:10 AM EDT 300 mg methylPREDNISolone acetate (DEPO-Medrol) injection 80 mg 80 mg, Intra-articular, Once, 1 dose, On Fri01/05/25 at 1100, RoutineIndications:Sacroiliit is, not elsewhere classified ([facility]) Given by Other 01/05/2025 10:10 AM EDT 80 mg documented in this encounter Additional Health Concerns Active Problems Noted Date Diagnosed Date Autogenerated Problem 08/24/2024 Assessment Noted Time PHQ-9 Depression Total Score: 0 12/30/19 1:18 PM EDT A fall risk assessment has been complete d for the patient 01/05/2025 9:53 AM EDT A Body Mass Index follow-up plan has been documented for the patient 01/05/2025 11:11 AM EDT documented as of this encounter Care Teams Federal Mediation Commissioner Relationship Specialty Start Date End Date Dru Giles MD PCP - General 11/21/21 documented as of this encounter
[2025-01-24 13:29] LABS: Hematocrit 33.4 % (37.0-47.0); Hemoglobin 10.6 g/dL (12.2-16.2); Immature Granulocytes % 0.2 %; Mean Corpuscular HGB Conc 31.7 g/dL (31.8-35.4); Mean Corpuscular Hemoglobin 28.5 pg (27.0-31.2); Mean Corpuscular Volume 89.8 fl (81-99); Nucleated Red Blood Cells % 0 %; Platelet Count 92 K/mm3 (142-424); Red Blood Count 3.72 M/mm3 (4.20-5.40); Red Cell Distribution Width-SD 51.2 fL; White Blood Count 5.6 K/mm3 (4.8-10.8)
[2025-01-24 14:14] LABS: Alanine Aminotransferase 37 U/L (12-78); Albumin Level 3.3 g/dl (3.5-5.0); Albumin/Globulin Ratio 0.8 (1.1-1.8); Alkaline Phosphatase 201 U/L (38-126); Aspartate Amino Transferase 52 U/L (14-36); Bilirubin,Total 1.7 mg/dl (0.2-1.3); Blood Urea Nitrogen 12 mg/dl (7-17); Calcium 8.8 mg/dl (8.4-10.2); Carbon Dioxide 22 mmol/L (22.0-30.0); Chloride 107 mmol/L (98-107); Creatinine,Serum 0.80 mg/dl (0.52-1.04); Estimated Glomerular Filt Rate 73 ml/min (>60); GFR (African American) 89 ML/MIN (>60); Globulin 4.0 g/dL (1.3-3.2); Glucose 118 mg/dl (74-100); Sodium 136 mmol/L (136-145); Total Protein,Serum 7.3 g/dl (6.3-8.2)
[2025-01-24 14:58] LABS: Anion Gap 10.8 mEq/L (5-15); Potassium 3.8 mmoL/L (3.5-5.1)
--- OUTSIDE RECORDS SUMMARY | 2025-01-24 18:53 | XMS_ITS | Clinical Summary ---
Author Organization [facility] Address [address] [place] [address] Care Team Providers Care Ordnance Handler Name Role Phone Dru Giles MD Primary Care Provider [phone] Allergies Active Allergy Reactions Criticality Noted Date Comments Bee Venom Anaphylaxis High 04/03/2023 Compleat Other - please document in the comment field,Hives High 09/08/2023 Diphth-Acell Pertussis-Tetanus Other - please document in the comment field Low 09/08/2023 Dtap-Hepatitis B Recomb-Ipv Other - please document in the comment field Low 04/03/2023 Rtct-Azo-Tzq-Hepatitis B Recmb Other - please document in [...] Hives High 04/03/2023 Medications ergocalciferol 1.25 MG (65085 UT) capsule Take 1 capsule by mouth 1 time per week. Active montelukast (Singulair) 10 MG tablet Take 1 tablet by mouth nightly. Active Multiple Vitamins-Mineral s (EQ One Daily [facility]) tablet Take 1 tablet by mouth daily. Active ferrous sulfate 325 (65 Fe) MG EC tabletIndication s:Anemia, unspecified type TAKE 1 TABLET BY MOUTH 1 (ONE) TIME EACH DAY WITH BREAKFAST. DO NOT CRUSH, CHEW, OR SPLIT. 90 tablet 2 Active traMADol (Ultram) 50 MG tablet at night if needed. Active ProAir HFA 108 (90 Base) MCG/ACT inhaler if needed. Active fluticasone (Flonase) 50 MCG/ACT nasal spray 1 spray daily. Active EPINEPHrine (AUVI-Q) 0.15 mg/0.15 mL IJ solution auto-injector injection Inject 0.0225 mL (0.0225 mg) into the muscle if needed for anaphylaxis. Active azelastine (Astelin) 0.1 % nasal spray 023 Active Horizant 600 MG tablet controlled-relea se ER tablet 024 Active ketotifen (Zaditor) 0.035 % ophthalmic solution Active Glucagon, rDNA, (Glucagon Emergency) 1 MG kit Active meclizine (Antivert) 25 MG tablet 1 tablet. Active ondansetron (Zofran) 4 MG tablet 1 tablet (4 mg). 024 Active Zegalogue 0.6 MG/0.6ML solution auto-injector USE DIRECTED NEEDED with epipen FOR anaphylactic reactions Active triamcinolone (Kenalog) 0.1 % cream apply a SMALL AMOUNT topically TO THE affected area(s) TWICE DAILY FOR ITCHING OR RASH avoid USE ON face, groin, OR arm pits Active Nystop 156780 UNIT/GM powder apply topically to the affected area(s) three times daily Active rifAXIMin (Xifaxan) 550 MG tabletIndication s:Decompensated cirrhosis (CMS/HCC) Take 1 tablet by mouth 2 times a day. 60 tablet 11 025 2025 Active pantoprazole (Protonix) 40 MG EC tabletIndication s:Gastroesophage al reflux disease, unspecified whether esophagitis present Take 1 tablet by mouth daily before breakfast. Do not crush, chew, or split. 90 tablet 3 Active linaCLOtide (Linzess) 145 MCG capsuleIndicatio ns:Chronic constipation Take 1 capsule by mouth daily before breakfast. 90 capsule 1 Active Adalimumab (Humira, 2 Pen,) 40 MG/0.4ML Auto-injector KitIndications:S eronegative rheumatoid arthritis of multiple sites (CMS/HCC) Inject 1 each under the skin every 7 days. 4 each 3 Active ciclopirox (Loprox) 0.77 % cream APPLY TOPICALLY TO THE AFFECTED AREA(S) TWICE DAILY FOR NAIL fungus FOR 6 MONTHS Active Trelegy Ellipta 200-62.5-25 MCG/ACT aerosol powder Active valsartan (Diovan) 160 MG tablet Active metoclopramide (Reglan) 5 MG tablet TAKE ONE TABLET BY MOUTH EVERY DAY FOR gerd Active methocarbamol (Robaxin) 500 MG tablet TAKE ONE TABLET BY MOUTH EVERY 8 HOURS MAY CAUSE DROWSINESS Active valsartan (Diovan) 320 MG tablet Take 1 tablet by mouth every morning. Down to 160 021 2024 Discontinued Breo Ellipta 200-25 MCG/ACT aerosol powder 1 (one) time each day. 2024 Discontinued methotrexate 2.5 MG tabletIndication s:Inflammatory polyarthritis Take 4 tablets (10 mg total) by mouth 1 time per week. Follow directions carefully, and ask to explain any part you do not understand. Take exactly as directed. 68 tablet 2024 Discontinued folic acid (Folvite) 1 MG tabletIndication s:Inflammatory polyarthritis,Hi gh risk medication use Take 1 tablet by mouth daily. As long as you are on methotrexate 90 tablet 1 2024 Discontinued lactulose (Chronulac) 10 GM/15ML oral solution Take 15 mL by mouth 3 times a day. Can increase or decrease volume or frequency of dosing to have 1 BM daily or every other day 1350 mL 2 2024 Adalimumab (Humira, 2 Pen,) 40 MG/0.4ML Auto-injector KitIndications:S eronegative rheumatoid arthritis of multiple sites (CMS/HCC) Inject 1 each under the skin every 14 days. 2 each 2024 Discontinued(R eorder) doxycycline (Vibra-Tabs) 100 MG tablet Take 1 tablet by mouth 2 times a day. 2024 Discontinued Hospital, Clinic, or Other Facility Administered Medication Ordered Dose Route Frequency Start Date End Date Status lidocaine PF (Xylocaine) 1 % injection 300 mgIndications:Sacroil iitis, not elsewhere classified (CMS/HCC) 300 mg IJ Once 01/05/2025 01/05/2025 Ende d iohexol (OMNIPaque) 300 MG/ML injection 10 mLIndications:Sacroil iitis, not elsewhere classified (CMS/HCC) 10 mL OTHER Once in imaging 01/05/2025 01/05/2025 Ended methylPREDNISolone acetate (DEPO-Medrol) injection 80 mgIndications:Sacroil iitis, not elsewhere classified (CMS/HCC) 80 mg IX Once 01/05/2025 01/05/2025 Ende d bupivacaine PF (Marcaine) 0.25 % injection 25 mgIndications:Sacroil iitis, not elsewhere classified (CMS/HCC) 25 mg IJ Once 01/05/2025 01/05/2025 Ende d Active Problems Problem Noted Date Diagnosed Date [...] and depressed mood 04/19/2024 04/19/2024 Overview (04/19/2024): Roseline's health issues cause many emotions to surface as she is trying to cope/adjust to the way her life is, or will be. Most of Roseline's concerns are for the care and welfare of her autistic son, if something negative should happen to her. 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 Generalized anxiety disorder with panic attacks 04/19/2024 04/19/2024 Overview (04/19/2024): Roseline reported having Anxiety and Panic attacks as a little girl, and she was known as a worry-wart. Currently, her anxious symptoms have been worse since March 2020 when she became very sick and now has several serious illnesses. Macular degeneration 04/19/2024 025 MDD (major depressive disord er), recurrent, with melancholic features 04/19/2024 04/19/2024 Overview (04/19/2024): Roseline shared that there are several things that she has to do differently, or give up altogether because her health issues will not allow her to do the things anymore. This has caused Roseline to be sad, irritable, scared, depressed, and [...] Encounters Date Type Department Care Team Description 01/17/2025 Telephone [facility] Medicine Specialties [address], [address] [place] [address] Jesus Tanner MD 01/17/2025 Telephone [facility] Medicine Specialties [address], [address] [place] [address] Yesi Melgar 01/05/2025 9:30 AM EDT Procedure Visit [facility] Interventional Pain Medicine [address] [place] [address] Eliseo Curiel MD Sacroiliitis, not elsewhere classified ([facility]/HCC) 01/05/2025 Telephone [facility] Interventional Pain Medicine [address] [place] [phone] Eliseo Curiel MD HCN - Patient Message 01/05/2025 Orders Only External Location [address] [place] [phone] Provider, External 01/05/2025 Travel 12/29/2024 1:30 PM EDT Office Visit [facility] Medicine Specialties [address], [address] [place] [phone] Jesus Tanner MD Seronegative rheumatoid arthritis of multiple sites ([facility]) (Primary Dx); High risk medication use; Therapeutic drug monitoring 12/29/2024 7:11 AM EDT - 12/29/2024 11:59 PM EDT Hospital Encounter [facility] [address] [place] [phone] On methotrexate therapy; Cirrhosis of liver without ascites, unspecified hepatic cirrhosis type Discharge Disposition: Home or Self Care 12/29/2024 Telephone [facility] Medicine Specialties [address], [address] [place] [phone] Ajit Jane, PharmD 12/29/2024 Telephone [facility] Medicine Specialties [address], [address] [place] [phone] Gibson Huffman, PharmD q7 days Humira 12/29/2024 Orders Only [facility] Medicine Specialties [address], [address] [place] [phone] Gibson Huffman, PharmD Seronegative rheumatoid arthritis of multiple sites ([facility]) (Primary Dx) 12/29/2024 Travel 12/27/2024 3:00 PM EDT Office Visit [facility] Interventional Pain Medicine [address] [place] [address] Eliseo Curiel MD Sacroiliitis, not elsewhere classified ([facility]/HCC) (Primary Dx); Chronic bilateral low back pain without sciatica 12/27/2024 Travel 12/21/2024 Refill [facility] Medicine Specialties [address], [address] [place] [address] Jesus Tanner MD Seronegative rheumatoid arthritis of multiple sites ([facility]/HCC) 12/13/2024 Telephone [facility] [address], [address] [place] [address] Provider, External HCN - Patient Message 11/16/2024 Telephone [facility] Medicine Specialties [address], [address] [place] [address] Yesi Melgar 11/15/2024 10:20 AM EDT Office Visit [facility] Medicine Specialties [address], [address] [place] [address] Melyssa Encinas PA Chronic constipation (Primary Dx); Gastroesophageal reflux disease, unspecified whether esophagitis present 11/15/2024 Travel 11/05/2024 Results Follow-Up [facility] Medicine Specialties [address], [address] [place] [address] Rebekah Aragon PA 11/04/2024 3:40 PM EDT Office Visit [facility] Medicine Specialties [address], [address] [place] [address] Rebekah Aragon PA On methotrexate therapy (Primary Dx); Cirrhosis of liver without ascites, unspecified hepatic cirrhosis type (CMS/HCC) 11/04/2024 Travel 11/01/2024 Telephone [facility] Medicine Specialties [address], [address] [place] [address] Yesi Melgar 10/26/2024 Telephone [facility] Medicine Special[facility] [address], [address] [place] [address] Yesi Melgar 10/24/2024 Results Follow-Up [facility] [address], [address] [place] [address] Ari Barfield MD from Last 3 Months Immunizations Immunization [...] Les Alive Brother 3 Shemar and Les Edna Alive Father Maternal Grandfather Maternal Grandmother Mother Alive Mother's Sister Kayleen Sheltoneduar Alive Paternal Grandmother Social History Tobacco Use [...] Mass Index 43.7 01/05/2025 9:53 AM EDT Plan of Treatment Upcoming Encounters Date Type Department Care Team (Late st Contact Info) Description 02/07/2025 10:20 AM EST Office Visit [facility] Medicine Specialties [address], [address] [place] [address] Melyssa Encinas PA [address] [facility] [address] [place] [address] 02/08/2025 10:20 AM EST Office Visit [facility] Interventional Pain Medicine [address] [facility] [address] Eliseo Curiel MD [address] [facility] [address] [place] [phone] 02/24/2025 3:00 PM EST Office Visit [facility] Medicine Specialties [address], [address] [place] [address] GodRebekah england PA [address] [place] [address] 04/13/2025 2:30 PM EST Office Visit [facility] [address], [address] [place] [address] Jesus Tanner MD [address] [place] [address] 07/12/2025 11:00 AM EDT Ovarian Cancer Screening [facility] [address] [place] [address] Health Maintenance Due Date Last [...] (2 of 2 - PCV) 02/19/2023 02/19/2022 [id number] Vaccine ( season) 2024 12/12/2021, 01/03/2021, 06/07/2020, [...] Additional history exists [facility]-Obesity Intervention Completed 025, 12/29/2024, 12/27/2024, Additional history exists HPV Vaccines Aged Out [...] PROCEDURE PROTOCOL Routine 01/05/2025 9:30 AM EDT MS INJECTION,SACROILIAC JOINT Routine 01/05/2025 9:30 AM EDT Sacroiliitis, not elsewhere classified (CMS/HCC) POC ULTRASOUND 01/05/2025 CBC WITH AUTO DIFFERENTIAL Routine 12/29/2024 2:09 [...] without ascites, unspecified hepatic cirrhosis type (CMS/HCC) HIV 1/2 ANTIBODY/ANTIGEN SCREEN WITH REFLEX TO [...] Recently Relevant to Health Maintenance Results * Interventional Pain Nurse Procedure Protocol (01/05/2025 9:30 AM EDT) Narrative Amira Flor RN - 01/05/2025 9:30 AM EDT Amira Flor RN 01/05/2025 11:11 AM Interventional Pain Nurse Procedure Protocol Documentation: Indications: Documentation supporting primary procedure completed by : Eliseo Curiel MD See the provider procedure note for performed procedure details and findings. Pre-Procedure Checklist: Currently taking anticoagulant(s)?: no Sander And Polisher present?: yes Additional Pre-Procedure Comments: Elaine Titus timeout was called immediately prior to the procedure, in accordance with [facility] policy @ 1003 Procedure details: Procedure start time:: 01/05/2025 10:10 [...] to: home Mode of exit: Walked (@ [id number]) Attendance: Constant attendance by certified staff until patient recovered Recovery: Patient returned to pre-procedure baseline Estimated blood loss (see I/O flowsheets): no Specimens recovered: None Patient is stable for discharge or admission: yes Procedure completion: Tolerated well, no immediate complications us Eliseo Curiel MD IN CLINIC/BEDSIDE ORDER PATRICIA Final Result * MS INJECTION,SACROILIAC JOINT (01/05/2025 9:30 AM EDT) Narrative Eliseo Curiel MD - 01/05/2025 9:30 AM EDT Eliseo Curiel MD 01/05/2025 11:11 AM Injection - Sacroiliac Joint Performed by: Salazar Garcia DO Authorized by: Eliseo Curiel MD us Eliseo Curiel MD IN CLINIC/BEDSIDE ORDER PATRICIA Final Result * POC Imaging (01/05/2025) Anatomical Region Laterality Modality Pelvis Other 01/05/2025 us External Provider IMG POINT OF CARE ULTRASOUND F inal Result * (ABNORMAL) CBC and differential (12/29/2024 2:09 PM EDT) Only the most recent of2 resultswithin the time period is included. WBC Count 7.18 3.70 - 10.30 10*3/uL LAB HEMATOLOGY METHOD 12/29/2024 3:43 PM EDT [facility] RBC Count 4.06 3.90 - 5.20 10*6/uL LAB HEMATOLOGY METHOD 12/29/2024 3:43 PM EDT [facility] HGB 11.6 11.2 - 15.7 g/dL LAB HEMATOLOGY METHOD 12/29/2024 3:43 PM EDT [facility] HCT 36.8 34.0 - 45.0 % LAB HEMATOLOGY METHOD 12/29/2024 3:43 PM EDT [facility] Platelet Count 105(L) 155 - 369 10*3/uL LAB HEMATOLOGY METHOD 12/29/2024 3:43 PM EDT [facility] MCV 91 79 - 98 fL LAB HEMATOLOGY METHOD 12/29/2024 3:43 PM EDT [facility] MCH 28.6 26.0 - 32.0 pg LAB HEMATOLOGY METHOD 12/29/2024 3:43 PM EDT [facility] MCHC 31.5 30.7 - 35.5 g/dL LAB HEMATOLOGY METHOD 12/29/2024 3:43 PM EDT [facility] RDW 14.9(H) 11.5 - 14.5 % LAB HEMATOLOGY METHOD 12/29/2024 3:43 PM EDT [facility] MPV 11.0 8.8 - 12.5 fL LAB HEMATOLOGY METHOD 12/29/2024 3:43 PM EDT [facility] nRBC 0.0 <=0.0 per 100 WBCs LAB HEMATOLOGY METHOD 12/29/2024 3:43 PM EDT [facility] Differential Type Automated LAB HEMATOLOGY METHOD 12/29/2024 3:43 PM EDT [facility] Neutrophils % 48 % LAB HEMATOLOGY METHOD 12/29/2024 3:43 PM EDT [facility] Lymphocytes % 35 % LAB HEMATOLOGY METHOD 12/29/2024 3:43 PM EDT [facility] Monocytes % 13 % LAB HEMATOLOGY METHOD 12/29/2024 3:43 PM EDT [facility] Eosinophils % 3 % LAB HEMATOLOGY METHOD 12/29/2024 3:43 PM EDT [facility] Basophils % 1 % LAB HEMATOLOGY METHOD 12/29/2024 3:43 PM EDT [facility] Immature Granulocytes % 0 % LAB HEMATOLOGY METHOD 12/29/2024 3:43 PM EDT [facility] Neutrophils Absolute 3.49 1.60 - 6.10 10*3/uL LAB HEMATOLOGY METHOD 12/29/2024 3:43 PM EDT [facility] Lymphocytes Absolute 2.48 1.20 - 3.90 10*3/uL LAB HEMATOLOGY METHOD 12/29/2024 3:43 PM EDT [facility] Monocytes Absolute 0.93(H) 0.30 - 0.90 10*3/uL LAB HEMATOLOGY METHOD 12/29/2024 3:43 PM EDT [facility] Eosinophils Absolute 0.18 0.00 - 0.50 10*3/uL LAB HEMATOLOGY METHOD 12/29/2024 3:43 PM EDT [facility] Basophils Absolute 0.07 0.00 - 0.10 10*3/uL LAB HEMATOLOGY METHOD 12/29/2024 3:43 PM EDT [facility] Immature Granulocytes Absolute 0.03 0.00 - 0.06 10*3/uL LAB HEMATOLOGY METHOD 12/29/2024 3:43 PM EDT [facility] Blood Venous blood specimen / Unknown Venipuncture / Unknown 12/29/2024 2:09 PM EDT 12/29/2024 2:09 PM EDT Narrative [facility] - 12/29/2024 3:43 PM EDT Therapeutic decision making should be based on absolute values, rather than percentages. us Jesus Tanner MD LAB BLOOD ORDERABLES Final Re sult [facility] [address] [place] [address] * US Abdomen Doppler Complete (12/29/2024 7:45 [...] MD on 12/29/2024 8:30 AM us Rebekah TTOH IMG US PROCEDURES Final Result * US [...] MD on 12/29/2024 8:30 AM Rebekah TOTH Agusto US PROCEDURES Final Result * Alpha Fetoprotein, Serum (11/04/2024 4:54 PM EDT) Alpha Fetoprotein, Serum 7.8 <10.0 ng/mL 11/04/2024 6:29 PM EDT [facility] Blood Venous blood specimen / Unknown Venipuncture / Unknown 11/04/2024 4:54 PM EDT 11/04/2024 4:55 PM EDT Narrative [facility] - 11/04/2024 6:29 PM EDT Performed by Brandi electrochemiluminescent immunoassay which is traceable to the 1st [facility] WHO Reference standard 72/255. Results obtained with different test methods or kits cannot be used interchangeably. Rebekah TOTH LAB BLOOD ORDERABLES Final Resu lt Performing Organization Address [facility] Co de Phone Number [facility] [address] [place] [address] * (ABNORMAL) Protime-INR (11/04/2024 4:54 PM EDT) Prothrombin Time 18.0(H) 12.0 - 14.3 sec LAB COAGULATION METHOD 11/04/2024 6:15 PM EDT [facility] INR 1.5(H) 0.9 - 1.1 LAB COAGULATION METHOD 11/04/2024 6:15 PM EDT [facility] Blood Venous blood specimen / Unknown Venipuncture / Unknown 11/04/2024 4:54 PM EDT 11/04/2024 4:55 PM EDT Narrative [facility] - 11/04/2024 6:15 PM EDT OPTIMAL INR RANGES FOR PATIENT ON ORAL ANTICOAGULANT THERAPY Prevention of venous thromboembolism INR 2.0 to 3.0 In patients with heart disease: Atrial fibrillation INR 2.0 to 3.0 Valvular heart disease INR 2.0 to 3.0 Tissue heart valves INR 2.0 to 3.0 Mechanical prosthetic valves INR 2.5 to 3.5 Prevention of recurrent AK INR 2.5 to 3.5 Rebekah TOTH LAB BLOOD ORDERABLES Final Resu lt Performing Organization Address City/[facility]/ZIP Co de Phone Number [facility] [address] [place] [address] * (ABNORMAL) Ammonia, Plasma (11/04/2024 4:54 PM EDT) Ammonia 58(H) 11 - 51 umol/L 11/04/2024 5:48 PM EDT [facility] Blood Venous blood specimen / Unknown Venipuncture / Unknown 11/04/2024 4:54 PM EDT 11/04/2024 4:55 PM EDT us Rebekah TOTH LAB BLOOD ORDERABLES Final Resu lt [facility] [address] [place] [address] * (ABNORMAL) Comprehensive metabolic panel (11/04/2024 4:54 PM EDT) Glucose, Plasma 74 74 - 99 mg/dL 11/04/2024 6:21 PM EDT [facility] BUN, Plasma 12 7 - 21 mg/dL 11/04/2024 6:21 PM EDT [facility] Creatinine, Plasma 0.82 0.60 - 1.10 mg/dL 11/04/2024 6:21 PM EDT [facility] BUN/Creatinine Ratio 15 11/04/2024 6:21 PM EDT [facility] Sodium, Plasma 141 136 - 145 mmol/L 11/04/2024 6:21 PM EDT [facility] Potassium, Plasma 4.3 3.6 - 4.9 mmol/L 11/04/2024 6:21 PM EDT [facility] Chloride, Plasma 109(H) 97 - 107 mmol/L 11/04/2024 6:21 PM EDT [facility] CO2, Plasma 20(L) 22 - 29 mmol/L 11/04/2024 6:21 PM EDT [facility] Anion Gap 12 6 - 16 mmol/L 11/04/2024 6:21 PM EDT [facility] Total Calcium, Plasma 9.5 8.9 - 10.2 mg/dL 11/04/2024 6:21 PM EDT [facility] Total Protein 7.8 6.3 - 7.9 g/dL 11/04/2024 6:21 PM EDT [facility] Albumin, Plasma 3.4(L) 3.5 - 5.2 g/dL 11/04/2024 6:21 PM EDT [facility] AST, Plasma 70(H) 10 - 35 U/L 11/04/2024 6:21 PM EDT [facility] Comment:Hemolyzed, result ma y be falsely increased. ALT, Plasma 30 10 - 35 U/L 11/04/2024 6:21 PM EDT [facility] Alkaline Phosphatase, Plasma 199(H) 46 - 142 U/L 11/04/2024 6:21 PM EDT [facility] Total Bilirubin, Plasma 0.9 0.2 - 1.1 mg/dL 11/04/2024 6:21 PM EDT [facility] eGFRcr 82.5 mL/min/1.7 3m*2 11/04/2024 6:21 PM EDT [facility] Comment:Reported eGFRcr in m L/min/1.73m2 is based the CKD-EPI 2020 equation that does not use a race coefficient. Blood Venous blood specimen / Unknown Venipuncture / Unknown 11/04/2024 4:54 PM EDT 11/04/2024 4:55 PM EDT us Rebekah TOTH LAB BLOOD ORDERABLES Final Resu lt Performing Organization Address City/[facility]/ZIP Co de Phone Number [facility] [address] [place] [address] * HIV 1 & 2 Antibody/Antigen Screen (05/27/2024 1:38 PM EDT) [facility] HIV 1 & 2 Antibody/Antigen Screen Non Reactive Non Reactive 05/27/2024 2:56 PM EDT [facility] Comment:Screening for HIV 1 & 2 antibodies, and P24 antigen is NONREACTIVE. No confirmatory testing is required. Blood Venous blood specimen / Unknown Venipuncture / Unknown 05/27/2024 1:38 PM EDT 05/27/2024 1:41 PM EDT us Marv Brown MD LAB BLOOD ORDERABLES Final Res ult [facility] [address] [place] [address] * Hepatitis C Antibody (04/19/2024 3:28 PM EST) Pathologist [facility] Hepatitis C Antibody Negative Negative 04/19/2024 5:40 PM EST [facility] Blood Venous blood specimen / Unknown Venipuncture / Unknown 04/19/2024 3:28 PM EST 04/19/2024 3:29 PM EST Jesus Tanner MD LAB BLOOD ORDERABLES Final Re sult Performing Organization Address City/[facility]/ZIP Co de Phone Number [facility] [address] [place] [address] * Hemoglobin A1c (03/28/2022 12:04 PM EST) [...] Adults <6.0% Children and Adolescents <7.5% Source: [place] [employer]. Standards of medical care in diabetes,2017. Diabetes Care.2017:40 (suppl 1):S1-S135. HbA1c assay performed by an ion-exchange chromatography method that is certified traceable to the DCCT. us Rebekah TOTH LAB BLOOD ORDERABLES Final Resu lt Performing Organization Address [facility] Co de Phone Number [facility] [address] [place] [address] * Colonoscopy (05/31/2021 8:36 AM EDT) Anatomical [...] Mary Mares, RN Endo Nurse Candis Austin, NERVE SPECIALIST NERVE SPECIALIST Kimberly Amaya, SOM Endo Nurse Preprocedure A history and [...] of bowel preparation was evaluated using the [place] Bowel Preparation Scale with scores of: right [...] Date Diagnosed Date Autogenerated Problem 08/24/2024 Insurance Advance Directives * Full Code (Latest Code Status on File) Date Activated Date Inactivated Comments 04/05/2022 11:15 AM 04/06/2022 2:46 AM Question Answer Comments Patient has decision-making capacity? Yes * Full Code Date Activated Date Inactivated Comments 10/02/2020 12:39 PM 10/19/2020 8:02 PM Question Answer Comments Patient has decision-making capacity? Yes Care Teams Ordnance Handler Relationship Specialty Start Date End Date Dru Giles MD PCP - General 11/21/21
--- OUTSIDE RECORDS SUMMARY | 2025-01-24 18:54 | XMS_ITS | Encounter Summary ---
Author Organization Healthcare Address [address] [place] [address] Care Team Providers Care Administrative Services Manager Name Role Phone Dru Giles MD Primary Care Provider [phone] Encounter Details Date Type Department Care Team (Late st Contact Info) Description 11/05/2024 Results Follow-Up [facility] Medicine Specialties [address], [address] [place] [address] Rebekah Aragon, JANEY [address] [place] [address] Social History Tobacco Use Types [...] difficult at all 11/15/2024 10:39 AM EDT Jose Elias meg, Solomiia * How difficult have these problems made [...] 02/07/2025 10:20 AM EST Office Visit [facility] Medicine Specialties [address], 2nd [place] [address] Melyssa Encinas PA [address] [place] [address] 02/08/2025 10:20 AM EST Office Visit [facility] Interventional Pain Medicine [address] [place] [address] Eliseo Curiel MD [address] [facility] [address] [place] [address] 02/24/2025 3:00 PM EST Office Visit [facility] Specialties [address], 2nd [place] [address] Rebekah Aragon PA [address] [place] [address] 04/13/2025 2:30 PM EST Office Visit [facility] Specialties [address], 2nd [place] [address] Jesus Tanner MD [address] [place] [address] 07/12/2025 11:00 AM EDT Ovarian Cancer Screening [facility] [address] [facility], 3rd [place] [address] documented as of this encounter Goals Goal [...] documented as of this encounter Care Teams Administrative Services Manager Relationship Specialty Start Date End Date Dru Giles MD PCP - General 11/21/21 documented as of this encounter
--- OUTSIDE RECORDS SUMMARY | 2025-01-24 18:55 | XMS_ITS | Encounter Summary ---
Author Organization [facility] Address [address] [place] [address] Care Team Providers Care Tubing Machine Tender Name Role Phone Dru Giles MD Primary Care Provider [phone] Reason for Visit * Reason Onset Date Comments Med Refill 12/21/2024 Encounter Details Date Type Department Care Team (Late st Contact Info) Description 12/21/2024 Refill [facility] Medicine Specialties [address], 2nd [place] [address] Jesus Tanner MD [address] [place] [address] Seronegative rheumatoid arthritis of multiple sites (CMS/HCC) Social History Tobacco Use Types Packs/Day [...] Miscellaneous Notes * Progress Notes - Stacy Dong PharmD - 12/21/2024 12:47 PM EDT 1 medication(s) has been approved per protocol. documented in this encounter Plan of Treatment Upcoming Encounters Date Type Department Care Team (Late st Contact Info) Description 02/07/2025 10:20 AM EST Office Visit [facility] Medicine Specialties [address], [address] [place] [address] Melyssa Encinas PA [address] [place] [address] 02/08/2025 10:20 AM EST Office Visit [facility] Interventional Pain Medicine [address] [facility] [place] [address] Eliseo Curiel MD [address] [facility] [address] [place] [address] 02/24/2025 3:00 PM EST Office Visit [facility] Specialties [address], [address] [place] [address] [place] [address] Rebekah Aragon PA [address] [place] [address] 04/13/2025 2:30 PM EST Office Visit [facility] [address], [facility] [place] [address] Jesus Tanner MD [address] [place] [address] 07/12/2025 11:00 AM EDT Ovarian Cancer Screening [facility] [address] , 3rd [place] [address] documented as of this encounter Goals Goal Patient Goal Type Associated Problems Recent Progress Patient-Stated? Author Autogenerat ed Goal Care Plan Autogenerated Problem No Dana Leiva documented as of this encounter Visit Diagnoses Diagnosis Seronegative rheumatoid arthritis of multiple sites (CMS/[facility]) documented in this encounter Additional Health Concerns [...]
--- OUTSIDE RECORDS SUMMARY | 2025-01-24 18:55 | XMS_ITS | Encounter Summary ---
Author Organization Healthcare Address [address] [place] [address] Care Team Providers Care Jet Mechanic Name Role Phone Dru Giles MD Primary Care Provider [phone] Reason for Visit * Reason Onset Date Comments HCN - Patient Message 12/13/2024 Encounter Details Date Type Department Care Team (Late st Contact Info) Description 12/13/2024 Telephone [facility] [address], 1[address] [place] [address] Provider, External HCN - Patient Message Social [...] optimal time of day to reach caller: [phone] Edna Note: Please do not reply to [...] Description 02/07/2025 10:20 AM EST Office Visit [facility] Medicine Specialties [address], 2nd [place] [address] Melyssa Encinas PA [address] [place] [address] 02/08/2025 10:20 AM EST Office Visit [facility] Interventional Pain Medicine [address] [facility] [address] Eliseo Curiel MD [address] [facility] [address] [place] [address] 02/24/2025 3:00 PM EST Office Visit [facility] Specialties [address], 2nd [place] [address] Rebekah Aragon PA [address] [place] [address] 04/13/2025 2:30 PM EST Office Visit [facility] Medicine [facility] [address], 2nd [place] [address] Jesus Tanner MD [address] [place] [address] 07/12/2025 11:00 AM EDT Ovarian Cancer Screening [facility] Gynecology [address] , 3rd [place] [address] documented as of this encounter Goals Goal [...] documented as of this encounter Care Teams Jet Mechanic Relationship Specialty Start Date End Date Dru Giles MD PCP - General 11/21/21 documented as of this encounter
--- OUTSIDE RECORDS SUMMARY | 2025-01-24 18:56 | XMS_ITS | Encounter Summary ---
Author Organization [facility] Address [address] [place] [address] Care Team Providers Care Road Engineer Name Role Phone Dru Giles MD Primary Care Provider [phone] Encounter Details Date Type Department Care Team [...] Description 02/07/2025 10:20 AM EST Office Visit [facility] Medicine Specialties [address], 2nd [place] [address] Melyssa Encinas, JANEY [address] [place] [address] 02/08/2025 10:20 AM EST Office Visit [facility] Interventional Pain Medicine [address] [facility] [place] [address] Eliseo Curiel MD [address] [facility] [address] [place] [address] 02/24/2025 3:00 PM EST Office Visit [facility] Medicine Specialties [address], 2[address] [place] [address] Rebekah Aragon PA [address] [place] [address] 04/13/2025 2:30 PM EST Office Visit [facility] Medicine Specialties [address], 2nd [place] [address] Jesus Tanner MD [address] [place] [address] 07/12/2025 11:00 AM EDT Ovarian Cancer Screening [facility] [address] 3rd [place] [address] documented as of this encounter Goals Goal [...] documented as of this encounter Care Teams Road Engineer Relationship Specialty Start Date End Date Dru Giles MD PCP - General 11/21/21 documented as of this encounter
--- OUTSIDE RECORDS SUMMARY | 2025-01-24 18:58 | XMS_ITS | Encounter Summary ---
Author Organization Healthcare Address [address] [place] [address] Care Team Providers Care Analysis Engineer Name Role Phone Dru Giles MD Primary Care Provider [phone] Reason for Visit * Reason Onset Date Comments q7 days Humira 12/29/2024 Encounter Details Date Type Department Care Team (Late st Contact Info) Description 12/29/2024 Telephone [facility] Medicine Specialties [address], 2nd [place] [address] Gibson Huffman, [place] [address] q7 days Humira Social History Tobacco Use [...] Description 02/07/2025 10:20 AM EST Office Visit [facility] Medicine Specialties [address], 2nd [place] [address] Melyssa Encinas PA [address] [place] [address] 02/08/2025 10:20 AM EST Office Visit [facility] Interventional Pain Medicine [address] [facility] [place] [address] Eliseo Curiel MD [address]00 [facility] [address] [place] [address] 02/24/2025 3:00 PM EST Office Visit [facility] Medicine Specialties [address], 2nd [place] [address] Rebekah Aragon PA [address] [place] [address] 04/13/2025 2:30 PM EST Office Visit [facility] Medicine Specialties [address], 2nd [place] [address] Jesus Tanner MD [address] [place] [address] 07/12/2025 11:00 AM EDT Ovarian Cancer Screening [facility] [address], 3rd [place] [address] documented as of this encounter Goals Goal [...] documented as of this encounter Care Teams Analysis Engineer Relationship Specialty Start Date End Date Dru Giles MD PCP - General 11/21/21 documented as of this encounter
--- OUTSIDE RECORDS SUMMARY | 2025-01-24 18:58 | XMS_ITS | Encounter Summary ---
Author Organization Healthcare Address [address] [place] [address] Care Team Providers Care Data Deliverables Manager Name Role Phone Dru Giles MD Primary Care Provider [phone] Encounter Details Date Type Department Care Team [...] Description 02/07/2025 10:20 AM EST Office Visit [facility] Medicine Specialties [address], 2nd [place] [address] Melyssa Encinas PA [address] [place] [address] 02/08/2025 10:20 AM EST [facility] Inter[facility] Medicine [address] [place] [address] Eliseo Curiel MD [address] [place] [address] 02/24/2025 3:00 PM EST Office Visit [facility] Medicine Specialties [address], 2nd [place] [address] Rebekah Aragon PA [address] [place] [address] 04/13/2025 2:30 PM EST Office Visit [facility] Medicine Specialties [address], 2nd [place] [address] Jesus Tanner MD [address] [place] [address] 07/12/2025 11:00 AM EDT Ovarian Cancer Screening [facility] Gynecology [address] 3rd [place] [address] documented as of this encounter Goals Goal [...] documented as of this encounter Care Teams Data Deliverables Manager Relationship Specialty Start Date End Date Dru Giles MD PCP - General 11/21/21 documented as of this encounter
--- OUTSIDE RECORDS SUMMARY | 2025-01-24 18:58 | XMS_ITS | Encounter Summary ---
Author Organization [facility] Address [address] [place] [address] Care Team Providers Care Shoe Laster Name Role Phone Dru Giles MD Primary Care Provider [phone] Reason for Referral * Medications - Authorized Specialty Diagnoses / Procedures Referred By Contac t Referred To Contact Diagnoses Seronegative rheumatoid arthritis of multiple sites ([facility]) Jesus Tanner MD [address] [place] [address] Phone: tel: fax: Referral ID Status Reason Start Date Expiration Date V isits Requested Visits Authorized [id number] Authorized 12/08/2024 03/09/2026 1 1 Encounter Details Date Type Department Care Team (Late st Contact Info) Description 12/29/2024 Orders Only [facility] Medicine Specialties [address], 2nd [place] [address] Gibson Huffman [place]D [place] [address] Seronegative rheumatoid arthritis of multiple sites ([facility]) (Primary Dx) Social History Tobacco Use [...] at all 12/29/2024 1:18 PM EDT Erendira Villarreal documented as of this encounter Miscellaneous Notes * Progress Notes - Gibson Huffman, PharmD - 12/29/2024 1:39 PM EDT 1 medication(s) has been approved per protocol. documented in this encounter Plan of Treatment Upcoming Encounters Date Type Department Care Team (Late st Contact Info) Description 02/07/2025 10:20 AM EST Office Visit [facility] Medicine Specialties [address], 2nd [place] [address] Melyssa Encinas PA [address] [place] [address] 02/08/2025 10:20 AM EST Office Visit [facility] Interventional Pain Medicine [address] [facility] [place] [address] Eliseo Curiel MD [address] [facility] [address] [place] [address] 02/24/2025 3:00 PM EST Office Visit [facility] Medicine Specialties [address], 2nd [place] [address] Rebekah Aragon PA [address] [place] [address] 04/13/2025 2:30 PM EST Office Visit [facility] Medicine Specialties [address], 2nd [place] [address] Jesus Tanner MD [address] [place] [address] 07/12/2025 11:00 AM EDT Ovarian Cancer Screening [facility] [address], 3rd [place] [address] documented as of this encounter Goals Goal Patient Goal Type Associated Problems Recent Progress Patient-Stated? Author Autogenerat ed Goal Care Plan Autogenerated Problem No Dana Leiva documented as of this encounter Visit Diagnoses Diagnosis Seronegative rheumatoid arthritis of multiple sites (CMS/[facility])- Primary documented in this encounter [...] documented as of this encounter Care Teams Shoe Laster Relationship Specialty Start Date End Date Dru Giles MD PCP - General 11/21/21 documented as of this encounter
--- OUTSIDE RECORDS SUMMARY | 2025-01-24 18:59 | XMS_ITS | Encounter Summary ---
Author Organization [facility] Address [address] [place] [address] Care Team Providers Care Remelt Pan Tank Operator Name Role Phone Dru Giles MD Primary Care Provider [phone] Encounter Details Date Type Department Care Team (Late st Contact Info) Description 01/17/2025 Telephone [facility] Medicine Specialties [address], 2nd [place] [address] [place] [address] Social History Tobacco Use Types Packs/Day Years [...] * Telephone Encounter - Gabriella Machado - 01/19/2025 12:11 PM EST Received call from patient Patient was following up on previous message Reached out to nursing who spoke with provider Per provider she's been on that medication since September. There's no way it's related. He said to f/antonioith PCP on it Relayed this to patient- patient verbalized understanding CB: [phone] * Telephone Encounter - Yesi Melgar - 01/18/2025 9:52 AM EST Patient called to follow up on the metallic taste she's experiencing CB: [phone] * Telephone Encounter - Yesi Melgar - 01/17/2025 9:19 AM EST Patient called She states that for the last couple of weeks, she has had a bad metallic taste in her mouth She is wondering if there's anything she can take to remedy this CB: [phone] documented in this encounter Plan of Treatment Upcoming Encounters Date Type Department Care Team (Late st Contact Info) Description 02/07/2025 10:20 AM EST Office Visit [facility] Medicine Specialties [address], 2nd [place] [address] Melyssa Encinas PA [address] [place] [address] 02/08/2025 10:20 AM EST Office Visit [facility] Interventional Pain Medicine [address] [facility] [place] [address] Eliseo Curiel MD [address] [place] [address] 02/24/2025 3:00 PM EST Office Visit [facility] Specialties [address], 2nd [place] [address] Rebekah Aragon PA [address] [place] [address] 04/13/2025 2:30 PM EST Office Visit [facility] Specialties [address], 2nd [place] [address] Jesus Tanner MD [address] [place] [address] 07/12/2025 11:00 AM EDT Ovarian Cancer Screening [facility] [address] [facility], 3rd [place] [address] documented as of this encounter Goals Goal [...] documented as of this encounter Care Teams Remelt Pan Tank Operator Relationship Specialty Start Date End Date Dru Giles MD PCP - General 11/21/21 documented as of this encounter
--- OUTSIDE RECORDS SUMMARY | 2025-01-24 18:59 | XMS_ITS | Encounter Summary ---
Author Organization Healthcare Address [address] [place] [address] Care Team Providers Care Bulb Brander Name Role Phone Dru Giles MD Primary Care Provider [phone] Encounter Details Date Type Department Care Team (Late st Contact Info) Description 12/29/2024 Telephone [facility] Medicine Specialties [address], 2nd [place] [address] Ajit Jane, PharmD Social History [...] Description 02/07/2025 10:20 AM EST Office Visit [facility] Medicine Specialties [address], 2nd [place] [address] Melyssa Encinas PA [address] [place] [address] 02/08/2025 10:20 AM EST Office Visit [facility] Interventional Pain Medicine [address] [facility] [place] [address] Eliseo Curiel MD [address] [facility] [address] [place] [address] 02/24/2025 3:00 PM EST Office Visit [facility] Medicine Specialties [address], 2nd [place] [address] Rebekah Aragon PA [address] [place] [address] 04/13/2025 2:30 PM EST Office Visit [facility] Medicine Specialties [address], 2nd [place] [address] Jesus Tanner MD [address] [place] [address] 07/12/2025 11:00 AM EDT Ovarian Cancer Screening [facility] [address] [facility], 3rd [place] [address] documented as of this encounter Goals Goal [...] documented as of this encounter Care Teams Bulb Brander Relationship Specialty Start Date End Date Dru Giles MD PCP - General 11/21/21 documented as of this encounter
--- OUTSIDE RECORDS SUMMARY | 2025-01-24 19:00 | XMS_ITS | Encounter Summary ---
Author Organization Healthcare Address [address] [place] [address] Care Team Providers Care Tax Accountant Name Role Phone Dru Giles MD Primary Care Provider [phone] Encounter Details Date Type Department Care Team (Late st Contact Info) Description 01/17/2025 Telephone [facility] Medicine Specialties [address], 2nd [place] [address] Jesus Tanner MD [address] [place] [address] Social History Tobacco Use Types [...] encounter Miscellaneous Notes * Telephone Encounter - Naye Whitlock RN - 01/17/2025 12:51 PM EST Duplicate encounter * Telephone Encounter - Marysol Maloney - 01/17/2025 12:43 PM EST Clinical Concern/Question Reason for Call: Pt is calling to talk with you about the metal taste she has after her Humira Best contact number: [phone] (mobile) Optimal time of day to reach caller: ANYTIME Additional comments/information from caller: None Note: Please do not reply to this message. Follow-up communication and further actions as a result of this message need to be communicated with the patient directly, if the patient is not active onMyChart. If the patient is active on MyChart, they will receive notification of the communication/outcome via [employer]. documented in this encounter Plan of Treatment Upcoming Encounters Date Type Department Care Team (Late st Contact Info) Description 02/07/2025 10:20 AM EST Office Visit [facility] Medicine Specialties [address], 2nd [place] [address] Melyssa Encinas PA [address] [place] [address] 02/08/2025 10:20 AM EST Office Visit [facility] Interventional Pain Medicine [address] [facility] [place] [address] Eliseo Curiel MD [address] [facility] [address] [place] [address] 02/24/2025 3:00 PM EST Office Visit [facility] Medicine Specialties [address], [address] [place] [address] Rebekah Aragon PA [address] [place] [address] 04/13/2025 2:30 PM EST Office Visit [facility] Medicine Specialties [address], 2nd [place] [address] Jesus Tanner MD [address] [place] [address] 07/12/2025 11:00 AM EDT Ovarian Cancer Screening [facility] [address] [facility], 3rd [place] [address] documented as of this encounter Goals Goal [...] documented as of this encounter Care Teams Tax Accountant Relationship Specialty Start Date End Date Dru Giles MD PCP - General 11/21/21 documented as of this encounter
--- OUTSIDE RECORDS SUMMARY | 2025-01-24 19:00 | XMS_ITS | Encounter Summary ---
Author Organization [facility] Address [address] [place] [address] Care Team Providers Care Rock Loader Name Role Phone Dru Giles MD Primary Care Provider [phone] Encounter Details Date Type Department Care Team (Latest Contact Info) Description 01/05/2025 Travel Social History Tobacco Use Types Packs/Day [...] Description 02/07/2025 10:20 AM EST Office Visit [place] [facility] Medicine Specialties [address], [address]nd [place] [address] Melyssa Encinas PA [address] [place] [address] 02/08/2025 10:20 AM EST Office Visit [facility] Interventional Pain Medicine [address] [facility] [place] [address] Eliseo Curiel MD [address] [facility] [address] [place] [address] 02/24/2025 3:00 PM EST Office Visit [facility] Medicine Specialties [address], [address] [place] [address] Rebekah Aragon PA [address] [place] [address] 04/13/2025 2:30 PM EST Office Visit [facility] Medicine Specialties [address], [address] [place] [address] Jesus Tanner MD [address] [place] [address] 07/12/2025 11:00 AM EDT Ovarian Cancer Screening [facility] [address]rd [place] [address] documented as of this encounter Goals Goal [...] documented as of this encounter Care Teams Rock Loader Relationship Specialty Start Date End Date Dru Giles MD PCP - General 11/21/21 documented as of this encounter
--- OUTSIDE RECORDS SUMMARY | 2025-01-24 19:01 | XMS_ITS | Encounter Summary ---
Author Organization Healthcare Address [address] [place] [address] Care Team Providers Care Research Geologist Name Role Phone Dru Giles MD Primary Care Provider [phone] Encounter Details Date Type Department Care Team (Late st Contact Info) Description 01/05/2025 Orders Only External Location [address] [place] [address] Provider, External Social History Tobacco Use Types [...] Description 02/07/2025 10:20 AM EST Office Visit [facility] [address] [place] [address] Melyssa Encinas PA [address] [place] [address] 02/08/2025 10:20 AM EST Office Visit [facility] Interventional Pain Medicine [address] [place] [address] Eliseo Curiel MD [address] [place] [address] 02/24/2025 3:00 PM EST Office Visit [facility] Specialties [address], [address] [place] [address] Rebekah Aragon PA [address] [place] [address] 04/13/2025 2:30 PM EST Office Visit [facility] [address] [place] [phone] Jesus Tanner MD [address] [place] [phone] 07/12/2025 11:00 AM EDT Ovarian Cancer Screening [facility] [address] [facility], [address]rd [place] [address] documented as of this encounter Goals Goal Patient Goal Type Associated Problems Recent Progress Patient-Stated? Author Autogenerat ed Goal Care Plan Autogenerated Problem No Dana Leiva documented as of this encounter Procedures Procedure Name Priority Date/Time Associated Diagnosis Comments POC ULTRASOUND 01/05/2025 documented in this encounter Results * POC Imaging (01/05/2025) Anatomical Region Laterality Modality Pelvis Other 01/05/2025 us External Provider IMG POINT OF CARE ULTRASOUND F inal Result documented in this encounter Visit Diagnoses [...] documented as of this encounter Care Teams Research Geologist Relationship Specialty Start Date End Date Dru Giles MD PCP - General 11/21/21 documented as of this encounter
--- OUTSIDE RECORDS SUMMARY | 2025-01-24 19:01 | XMS_ITS | Encounter Summary ---
Author Organization [facility] Address [address] [place] [address] Care Team Providers Care Manager Beauty Name Role Phone Dru Giles MD Primary Care Provider [phone] Reason for Visit * Reason Onset Date Comments HCN - Patient Message 01/05/2025 Encounter Details Date Type Department Care Team (Late st Contact Info) Description 01/05/2025 Telephone [facility] Interventional Pain Medicine [address] [place] [address] Eliseo Curiel MD [address] [facility] [address] [place] [address] HCN - Patient Message Social History Tobacco [...] encounter Miscellaneous Notes * Telephone Encounter - Cris Welch RN - 01/05/2025 1:41 PM EDT Called and left VM for patient informing her she had no restrictions tomorrow, that she may not have relief from steroids yet but she could participate in PT tomorrow, her only limitations were avoiding submerging in water and NSAIDS today. * Telephone Encounter - Alison Yang - 01/05/2025 12:07 PM EDT Clinical Concern/Question Reason for Call: Veena pt. Pt had injections today and is scheduled for PT tomorrow. PT wanted her to ask if it would be safe for her to come to her appt in the morning. They will be doing some exercises with her back. Please call to advise Best contact number: [phone] (mobile) Optimal time of day to reach caller: ANYTIME Additional comments/information from caller: None Note: Please do not reply to this message. Follow-up communication and further actions as a result of this message need to be communicated with the patient directly, if the patient is not active onMyChart. If the patient is active on MyChart, they will receive notification of the communication/outcome via LogRhythm. documented in this encounter Plan of Treatment Upcoming Encounters Date Type Department Care Team (Late st Contact Info) Description 02/07/2025 10:20 AM EST Office Visit [facility] [address] [place] [address] Melyssa Encinas PA [address] [place] [address] 02/08/2025 10:20 AM EST Office Visit [facility] Interventional Pain Medicine [address] [place] [address] Eliseo Curiel MD [address] [place] [address] 02/24/2025 3:00 PM EST Office Visit [facility] Medicine Specialties [address] [place] [address] Rebekah Aragon PA [address] [place] [address] 04/13/2025 2:30 PM EST Office Visit [facility] Medicine Specialties [address] [place] [address] Jesus Tanner MD [address] [place] [address] 07/12/2025 11:00 AM EDT Ovarian Cancer Screening [facility] [address] [place] [phone] documented as of this encounter Goals Goal [...] as of this encounter Care Teams Manager Beauty Relationship Specialty Start Date End Date Dru Giles MD PCP - General 11/21/21 documented as of this encounter
--- OUTSIDE RECORDS SUMMARY | 2025-01-24 19:08 | XMS_ITS | Encounter Summary ---
Author Organization Healthcare Address [address] [place] [address] Care Team Providers Care Etcher Enameling Name Role Phone Dru Giles MD Primary Care Provider [phone] Encounter Details Date Type Department Care Team (Late st Contact Info) Description 05/06/2024 Orders Only External Location [address] [place] [address] Provider, External Social History Tobacco Use Types [...] Description 02/07/2025 10:20 AM EST Office Visit [facility] [address] [place] [address] Melyssa Encinas PA [address] [place] [address] 02/08/2025 10:20 AM EST Office Visit [facility] Interventional Pain Medicine [address] [place] [address] Eliseo Curiel MD [address] [place] [address] 02/24/2025 3:00 PM EST Office Visit [facility] Medicine Specialties [address] [place] [address] Rebekah Aragon PA [address] [place] [address] 04/13/2025 2:30 PM EST Office Visit [facility] Medicine Specialties [address] [place] [address] Jesus Tanner MD [address] [place] [address] 07/12/2025 11:00 AM EDT Ovarian Cancer Screening [facility] Gynecology [address] [place] [address] documented as of this encounter Procedures Procedure [...] documented as of this encounter Care Teams Etcher Enameling Relationship Specialty Start Date End Date Dru Giles MD PCP - General 11/21/21 documented as of this encounter
--- OUTSIDE RECORDS SUMMARY | 2025-01-24 19:08 | XMS_ITS | Encounter Summary ---
Author Organization Healthcare Address [address] [place] [address] Care Team Providers Care Prosthetics Assistant Name Role Phone Dru Giles MD Primary Care Provider [phone] Encounter Details Date Type Department Care Team (Late st Contact Info) Description 05/17/2024 Orders Only External Location [address] [place] [address] Provider, External Social History Tobacco Use Types [...] Visit [facility] [address] [place] [address] Melyssa Encinas PA [address] [place] [address] 02/08/2025 10:20 AM EST Office Visit [facility] Interventional Pain Medicine [address] [place] [address] Eliseo Curiel MD [address] [place] [address] 02/24/2025 3:00 PM EST Office Visit [facility] Medicine Specialties [address] [place] [address] Rebekah Aragon PA [address] [place] [address] 04/13/2025 2:30 PM EST Office Visit [facility] Medicine Specialties [address], [address] [place] [address] Jesus Tanner MD [address] [place] [address] 07/12/2025 11:00 AM EDT Ovarian Cancer Screening [facility] Gynecology [address] [place] [address] documented as of this encounter Procedures Procedure [...] documented as of this encounter Care Teams Prosthetics Assistant Relationship Specialty Start Date End Date Dru Giles MD PCP - General 11/21/21 documented as of this encounter
== END 2025-01-24 23:59 | disposition home or self-care (01) ==
LOC: LAB 12:59
PROVIDERS: PCP Family Medicine; Visit Provider Internal Medicine Medical Oncology
DX: D61.818 Other pancytopenia (principal); D69.6 Thrombocytopenia, unspecified
CPT/HCPCS: 36415; 80053; 85025

== ENCOUNTER 2025-03-08 17:00 | Outpatient (RCR) | payer MEDICARE, MEDICAID, SELFPAY | END 2025-03-08 23:59 | disposition home or self-care (01) | LOC: PT 17:00 | PROVIDERS: PCP Family Medicine; Visit Provider Nurse Practitioner | DX: M54.41 Lumbago with sciatica, right side (principal); M79.604 Pain in right leg; M79.605 Pain in left leg | CPT/HCPCS: 97110; 97530 ==